=== PATIENT | male | born 1950 | race Two or more races ===

== ENCOUNTER 2020-06-18 08:34 | Outpatient (REF) | payer MEDICARE, SELFPAY ==
[2020-06-18 09:26] LABS: Estimated Average Glucose 171 mg/dL; Hemoglobin A1c % 7.6 %
[2020-06-18 09:39] LABS: Cholesterol 187 mg/dL; HDL Cholesterol 45 mg/dL; LDL Cholesterol Calculated 127 mg/dl; Triglycerides 79 mg/dL
[2020-06-18 10:56] LABS: Creatinine Urine 221.89 mg/dL; Microalbum/Creatinine Ratio Ur 14.8 ug/mg cr
== END 2020-06-18 08:35 | disposition home or self-care (01) ==
LOC: HO.LAB 08:34
PROVIDERS: PCP Internal Medicine; Visit Provider Internal Medicine
DX: E11.9 Type 2 diabetes mellitus without complications (principal)
CPT/HCPCS: 80061; 82043; 83036

== ENCOUNTER → 2020-07-14 11:47 | Outpatient (BNVA) | payer MEDICARE, SELFPAY | PROVIDERS: PCP Internal Medicine; Referring Provider Internal Medicine; Visit Provider Urology | DX: Z76.89 Persons encountering health services in other specified circumstances (principal) | CPT/HCPCS: Q3014 ==

== ENCOUNTER 2020-11-22 11:03 | Emergency (ER) | payer MEDICARE, SELFPAY ==
--- NOTE | ~2020-11-22 | XR_ITS ---
EXAMINATION: XR CHEST CLINICAL INFORMATION: Flulike symptoms COMPARISON: 07/23/2018 TECHNIQUE: Frontal view of the chest was obtained. FINDINGS: Normal symmetric lung volumes. No parenchymal consolidation. No pleural effusion. No pneumothorax. Cardiomediastinal silhouette and pulmonary vascularity are within normal limits. No acute osseous abnormalities. XR/XR chest 1V IMPRESSION: No acute findings.
[2020-11-22 11:11] VITALS: BP 160/87; PULSE 96; RESP 18; TEMP 37.7; O2SAT 96; BMI 30.7
--- NOTE | 2020-11-22 11:29 | ED.GENADULT ---
HPI - General Adult General Chief complaint: Upper Respiratory Symptoms Stated complaint: covid symptoms Time Seen by Provider: 11/22/20 11:13 Source: patient Mode of arrival: ambulatory Limitations: no limitations History of Present Illness HPI narrative: Patient comes emergency room complaining of generalized weakness and body aches, subjective fever, cough which started yesterday. Patient denies vomiting or diarrhea. No one else at home is sick. No sick contacts. MD complaint: COVID-like symptoms Related Data Home Medications Medication Instructions Recorded Confirmed omeprazole 20 mg capsule,delayed 20 mg PO DAILY 06/24/20 07/29/20 release terbinafine HCl 1 % topical cream 1 applic TOPICAL BID 06/24/20 07/29/20 Previous Rx's Medication Instructions Recorded linaclotide 72 mcg capsule 72 mcg PO DAILY #30 cap 06/24/20 metformin 500 mg tablet 500 mg PO BID #180 tab 07/13/20 finasteride 5 mg tablet 5 mg PO DAILY #90 tab 07/14/20 itraconazole 100 mg capsule 200 mg PO DAILY #60 cap 09/13/20 blood sugar diagnostic #100 ea 10/19/20 Allergies Allergy/AdvReac Type Severity Reaction Status Date / Time metronidazole [Flagyl] Allergy Unknown Insomnia Verified 07/28/20 14:07 TOURNIQUET FROM IV KIT Allergy Intermediate HIVES Uncoded 05/28/20 16:59 Review of Systems Review of Systems: Constitutional : No Weight loss, complaining of subjective fever, chills, fatigue, generalized malaise ENT/Mouth : No Hearing loss, No Ear Pain, No Nasal Congestion, No Sinus Pain, No Hoarseness, No sore throat, No Rhinorrhea, No Swallowing Difficulty Eyes: No Eye Pain, No Swelling, No Redness, No Foreign Body, No Discharge, No Vision Changes Cardiovascular : No Chest Pain, No SOB, No Dyspnea on Exertion, No Orthopnea, No Edema, No Palpitations Respiratory : complaining of dry cough, No Sputum, No Wheezing, No Smoke Exposure, No Dyspnea Gastrointestinal : No Nausea, No Vomiting, No Diarrhea, No Constipation, No abdominal Pain, complaining of chronic abdominal distension No Hematochezia, No Melena Genitourinary : complaining of occasional intermittent dysuria, occasional trouble urinating, known to have BPH, No Urinary Frequency, No Hematuria, Musculoskeletal : No joint pain, complaining of generalized Myalgias, No Joint Swelling Skin : No Skin Lesions, No rash Neuro : No Weakness, No Numbness, No Paresthesias, No Loss of Consciousness, No Dizziness, No Headache Psych : No Anxiety/Panic, No Depression, No SI/HI/AH/VH, No Social Issues, Heme/Lymph: No Bruising, No Bleeding,No Lymphadenopathy Endocrine : No Polyuria, No Polydipsia, No Temperature Intolerance [facility] Past Medical History Medical History Chronic GERD Diabetes type 2, controlled Surgical History History of kidney stones Family History Family History Father Medical history unknown Mother Medical history unknown Social History Social History Alcohol intake: never Smoking Status: Never smoker Advance Directives: No Advance Directives Information Provided: No Physical Exam Vital Signs: Vital Signs: Last Vital Signs Temp 99.8 F 11/22/20 11:11 Pulse 96 11/22/20 11:11 Resp 18 11/22/20 11:11 BP 160/87 H 11/22/20 11:11 Pulse Ox 96 11/22/20 11:11 Body Mass Index 30.7 Appearance: Alert. Oriented X3. No acute distress. Eyes: Pupils equal, round and reactive to light. ENT: Pharynx normal. Neck: Normal inspection. Neck supple. No lymph nodes noted. No crepitus CVS: Normal heart rate and rhythm. Pulses normal. Normal S1 and S2 Respiratory: No respiratory distress. Breath sounds normal. No Wheezing. No rales Abdomen: Soft and nontender. No rigidity. No distention. good BS x4 Skin: Skin warm and dry. Normal skin color. Normal skin turgor. Extremities: No lower extremity edema. No lower extremity edema. No Lacerations. No Rash Neuro: Oriented X 3. No motor deficit. No sensory deficit. Moving all extermities. No slurred speech. Course Course Course Narrative: I discussed the labs with the patient, he tested positive for COVID-19, patient aware that he needs to quarantine for 14 days. Patient's chest x-ray shows no acute findings, patient's oxygen saturation is 96-98% on room air, not tachycardic, P is not suspected at this time. Patient has no chest pain either. Medical Decision Making Lab Data Result diagrams: 11/22/20 12:31 11/22/20 12:31 Labs: Lab Results 11/22/20 11/22/20 11/22/20 Range/Units 12:31 12:31 12:31 WBC 9.0 (4.8-10.8) X10*3/uL RBC 4.63 (4.60-5.80) X10*6/uL Hgb 13.1 L (14.0-18.0) g/dl Hct 40.6 L (42-52) % MCV 87.7 (80-98) fL MCH 28.3 (27.0-33.0) pg MCHC 32.3 (31.0-36.0) g/dl RDW 13.5 (11.0-16.0) % Plt Count 196 (160-400) X10*3/uL MPV 10.0 (9.4-12.4) fL Immature Gran % (Auto) 0.3 (0.0-0.4) % Neut % (Auto) 64.9 (45-73) % Lymph % (Auto) 22.9 (20-40) % [place] % (Auto) 11.0 (2-11) % Eos % (Auto) 0.6 (0-4) % Baso % (Auto) 0.3 (0-2) % Lymph # (Auto) 2.1 (1.2-4.9) X10*3/uL [place] # (Auto) 1.0 (0.1-1.2) X10*3/uL Eos # (Auto) 0.1 (0.0-0.4) X10*3/uL Baso # (Auto) 0.0 (0.0-0.2) X10*3/uL Abs Immat Gran (auto) 0.03 (0.00-0.03) X10*3/uL Absolute Neuts (auto) 5.8 (2.0-8.3) X10*3/uL Absolute Nucleated RBC 0.000 (0.0-0.012) X10*3/uL Nucleated RBC % (auto) 0.0 (0.0-0.2) /100WBC PT (10.8-13.0) SEC INR (0.9-1.1) Sodium 135 (135-145) mmol/L Potassium 4.4 (3.3-5.1) mmol/L Chloride 105 (96-108) mmol/L Carbon Dioxide 21 L (22-29) mmol/L Anion Gap 13 (12-20) BUN 14 (9-16) mg/dL Creatinine 0.76 (0.5-1.4) mg/dL Estim Creat Clear Calc 90.1 Estimated GFR > 60 Random Glucose 158 H (60-115) mg/dL Calcium 8.6 (8.4-10.2) mg/dL Total Bilirubin 0.4 (0.0-1.0) mg/dL Direct Bilirubin 0.2 (0.0-0.5) mg/dL AST 20 (5-37) U/L ALT 15 (0-40) U/L Alkaline Phosphatase 70 (39-117) U/L B-Natriuretic Peptide (<100) pg/mL Total Protein 7.0 (6.5-8.0) g/dL Albumin 3.8 (3.5-5.0) g/dL Urine Color Urine Appearance Urine pH (5.0-8.0) Ur Specific [place] (1.005-1.025) Urine Protein (NEG-TRACE) MG/DL Urine Glucose (UA) (NEG) MG/DL Urine Ketones (NEG) MG/DL Urine Blood (NEG) Urine Nitrite (NEG) Ur Leukocyte Esterase (NEG) Coronavirus (PCR) POSITIVE A (Negative) Influenza Type A (PCR) NEGATIVE (Negative) Influenza Type B (PCR) NEGATIVE (Negative) RSV RNA Qual (PCR) NEGATIVE (Negative) 11/22/20 11/22/20 11/22/20 Range/Units 12:31 12:31 13:29 WBC (4.8-10.8) X10*3/uL RBC (4.60-5.80) X10*6/uL Hgb (14.0-18.0) g/dl Hct (42-52) % MCV (80-98) fL MCH (27.0-33.0) pg MCHC (31.0-36.0) g/dl RDW (11.0-16.0) % Plt Count (160-400) X10*3/uL MPV (9.4-12.4) fL Immature Gran % (Auto) (0.0-0.4) % Neut % (Auto) (45-73) % Lymph % (Auto) (20-40) % [place] % (Auto) (2-11) % Eos % (Auto) (0-4) % Baso % (Auto) (0-2) % Lymph # (Auto) (1.2-4.9) X10*3/uL [place] # (Auto) (0.1-1.2) X10*3/uL Eos # (Auto) (0.0-0.4) X10*3/uL Baso # (Auto) (0.0-0.2) X10*3/uL Abs Immat Gran (auto) (0.00-0.03) X10*3/uL Absolute Neuts (auto) (2.0-8.3) X10*3/uL Absolute Nucleated RBC (0.0-0.012) X10*3/uL Nucleated RBC % (auto) (0.0-0.2) /100WBC PT 13.2 H (10.8-13.0) SEC INR 1.1 (0.9-1.1) Sodium (135-145) mmol/L Potassium (3.3-5.1) mmol/L Chloride (96-108) mmol/L Carbon Dioxide (22-29) mmol/L Anion Gap (12-20) BUN (9-16) mg/dL Creatinine (0.5-1.4) mg/dL Estim Creat Clear Calc Estimated GFR Random Glucose (60-115) mg/dL Calcium (8.4-10.2) mg/dL Total Bilirubin (0.0-1.0) mg/dL Direct Bilirubin (0.0-0.5) mg/dL AST (5-37) U/L ALT (0-40) U/L Alkaline Phosphatase (39-117) U/L B-Natriuretic Peptide 41 (<100) pg/mL Total Protein (6.5-8.0) g/dL Albumin (3.5-5.0) g/dL Urine Color YELLOW Urine Appearance CLEAR Urine pH 5.0 (5.0-8.0) Ur Specific [place] >= 1.030 H (1.005-1.025) Urine Protein NEG (NEG-TRACE) MG/DL Urine Glucose (UA) NEG (NEG) MG/DL Urine Ketones NEG (NEG) MG/DL Urine Blood NEG (NEG) Urine Nitrite NEG (NEG) Ur Leukocyte Esterase NEG (NEG) Coronavirus (PCR) (Negative) Influenza Type A (PCR) (Negative) Influenza Type B (PCR) (Negative) RSV RNA Qual (PCR) (Negative) Imaging Data Chest x-ray: Radiologist's impression: Normal symmetric lung volumes. No parenchymal consolidation. No pleural effusion. No pneumothorax. Cardiomediastinal silhouette and pulmonary vascularity are within normal limits. No acute osseous abnormalities. XR/XR chest 1V IMPRESSION: No acute findings. Discharge Plan Discharge Clinical Impression: COVID-19 Patient Disposition: Home, Self-Care Instructions: COVID-19 (Coronavirus Disease 2019) (ED) Additional Instructions: If you have any shortness of breath or worsening symptoms, please return to the emergency room. Please stay at home and quarantine for the next 14 days, please make sure to follow Federal and CDC guidelines. Please follow-up with your primary care physician tomorrow. If you have any worsening or new symptoms, please return to the emergency room or call 911 Prescriptions: No Action metformin 500 mg tablet 500 mg PO BID Qty: 180 RF: 8 itraconazole 100 mg capsule 200 mg PO DAILY Qty: 60 RF: 2 (DME) FreeStyle Lite Strips Strip See Rx Instructions .ROUTE .MEDSUPPLY Qty: 100 RF: 8 terbinafine HCl 1 % cream 1 applic topical BID RF: 0 omeprazole 20 mg capsule,delayed release(DR/EC) 20 mg PO DAILY RF: 0 Linzess 72 mcg capsule 72 mcg PO DAILY Qty: 30 RF: 8 finasteride 5 mg tablet 5 mg PO DAILY Qty: 90 RF: 1
[2020-11-22 12:35] LABS: MANUAL DIFF FLAG NO
[2020-11-22 12:37] LABS: Basophils Percent Auto 0.3 % (0-2); Eosinophils Absolute Auto 0.1 X10*3/uL (0.0-0.4); Eosinophils Percent Auto 0.6 % (0-4); Hematocrit 40.6 % (42-52); Hemoglobin 13.1 g/dl (14.0-18.0); Imm Gran Abs Auto 0.03 X10*3/uL (0.00-0.03); Imm Gran Pct Auto 0.3 % (0.0-0.4); Lymphocytes Absolute Auto 2.1 X10*3/uL (1.2-4.9); Lymphocytes Percent Auto 22.9 % (20-40); Mean Corpuscular HGB Conc 32.3 g/dl (31.0-36.0); Mean Corpuscular Hemoglobin 28.3 pg (27.0-33.0); Mean Corpuscular Volume 87.7 fL (80-98); Neutrophils Absolute Auto 5.8 X10*3/uL (2.0-8.3); Neutrophils Percent Auto 64.9 % (45-73); Platelet Count 196 X10*3/uL (160-400); Red Blood Count 4.63 X10*6/uL (4.60-5.80); Red Cell Distribution Width 13.5 % (11.0-16.0)
[2020-11-22 12:45] LABS: INTERNATIONAL NORM RATIO 1.1 (0.9-1.1); Prothrombin Time 13.2 SEC (10.8-13.0)
[2020-11-22 13:04] LABS: Alanine Aminotransferase 15 U/L (0-40); Albumin Level 3.8 g/dL (3.5-5.0); Alkaline Phosphatase 70 U/L (39-117); Anion Gap 13 (12-20); Aspartate Amino Transferase 20 U/L (5-37); Bilirubin Direct 0.2 mg/dL (0.0-0.5); Bilirubin Total 0.4 mg/dL (0.0-1.0); Blood Urea Nitrogen 14 mg/dL (9-16); Calcium 8.6 mg/dL (8.4-10.2); Carbon Dioxide 21 mmol/L (22-29); Chloride 105 mmol/L (96-108); Creatinine Clr Calc Pharmacy 90.1; Estimated Glomerular Filt Rate > 60; Glucose Random 158 mg/dL (60-115); Potassium 4.4 mmol/L (3.3-5.1); Sodium 135 mmol/L (135-145)
[2020-11-22 13:07] LABS: B Type Natriuretic Peptide 41 pg/mL (<100)
[2020-11-22 13:41] LABS: Glucose Urine UA NEG (NEG); Leukocyte Esterase Urine NEG (NEG); Nitrite Urine NEG (NEG); Specific Gravity - Urine >= 1.030 (1.005-1.025); Urine Blood NEG (NEG); Urine Ketones NEG (NEG); Urine Protein NEG (NEG-TRACE)
[2020-11-22 13:52] LABS: Appearance Urine CLEAR; Color Urine YELLOW
[2020-11-22 14:21] LABS: Influenza A PCR NEGATIVE (Negative); Influenza B PCR NEGATIVE (Negative); Resp Syncy Virus RNA Qual PCR NEGATIVE (Negative); SARS COV2 PCR INHOUSE POSITIVE (Negative)
== END 2020-11-22 15:06 | disposition home or self-care (01) ==
PROVIDERS: Emergency Provider Emergency Medicine; PCP Internal Medicine
DX: U07.1 COVID-19 (principal); E11.9 Type 2 diabetes mellitus without complications
CPT/HCPCS: 0241U; 36415; 71045; 80048; 80076; 81003; 83880; 85025; 85610; 99283

== ENCOUNTER 2020-11-28 18:10 | Emergency (ER) | payer MEDICARE, SELFPAY ==
--- NOTE | ~2020-11-28 | CT_ITS ---
EXAMINATION: CT ANGIOGRAM OF THE CHEST WITH AND WITHOUT CONTRAST (CT PULMONARY ANGIOGRAM FOR PE) CLINICAL INFORMATION: Reason for Exam COVID positive shortness of breath COMPARISON: None TECHNIQUE: Prior to contrast administration, noncontrast localization images were obtained. Subsequently, multidetector volumetric imaging was performed from the thoracic inlet to below the diaphragms following the administration of 80 mL Omnipaque 350 intravenous contrast. No contrast reaction reported Sagittal, coronal, and MIP oblique sagittal reformatted images were obtained on the CT workstation, uploaded to PACS, and reviewed. This CT examination was performed using dose optimization techniques as appropriate, variously including the following: *Automated exposure control *Adjustment of mA and/or kV according to patient size (this includes techniques or standardized protocols for targeted exams where dose is matched to indication/reason for exam; i.e. extremities or head) *Use of iterative reconstruction technique Total exam dose-length product 362 mGy-cm FINDINGS: QUALITY OF STUDY/CONTRAST BOLUS: Satisfactory. PULMONARY ARTERIES: No central or segmental pulmonary emboli. THORACIC AORTA: No aneurysm or dissection. LUNG: Bilateral patchy and groundglass opacities present with slight peripheral predominance. PLEURA: Trace right pleural effusion. No pneumothorax. MEDIASTINUM: Normal heart size. No pericardial effusion. No hilar or mediastinal lymphadenopathy. No evidence of septal bowing or right heart strain. No reflux of contrast into the hepatic veins to suggest elevated right heart pressures. CHEST WALL/AXILLA: No axillary or internal mammary lymphadenopathy. OSSEOUS STRUCTURES: No acute or suspicious osseous abnormality. UPPER ABDOMEN: Cholelithiasis. CT/CT angio chest PE protocol IMPRESSION: * No pulmonary embolism. * No aortic aneurysm or dissection. * Bilateral airspace disease in a pattern and distribution compatible with COVID pneumonitis * Cholelithiasis. VTE: negative
--- NOTE | 2020-11-28 18:26 | ED_ITS ---
HPI - SOB/Dyspnea General Chief Complaint: General Medical Stated Complaint: Weakness COVID Positive Time Seen by Provider: 11/28/20 18:25 Source: patient Mode of arrival: ambulatory Limitations: no limitations History of Present Illness HPI Narrative: Patient diabetic for COVID positive on 11/22 comes here for incr eased weakness and cough and shortness of breath feels constipated poor appetite weakness multiple complaints feels that he is getting worse for last few days has low-grade fever also Related Data Home Medications Medication Instructions Recorded Confirmed omeprazole 20 mg capsule,delayed 20 mg PO DAILY 06/24/20 07/29/20 release terbinafine HCl 1 % topical cream 1 applic TOPICAL BID 06/24/20 07/29/20 Previous Rx's Medication Instructions Recorded linaclotide 72 mcg capsule 72 mcg PO DAILY #30 cap 06/24/20 metformin 500 mg tablet 500 mg PO BID #180 tab 07/13/20 finasteride 5 mg tablet 5 mg PO DAILY #90 tab 07/14/20 itraconazole 100 mg capsule 200 mg PO DAILY #60 cap 09/13/20 blood sugar diagnostic #100 ea 10/19/20 azithromycin [Zithromax] 250 mg PO DAILY 4 Days #4 tab 11/28/20 codeine-guaifenesin 5 ml PO Q6H PRN #237 ml 11/28/20 dexamethasone [Decadron] 6 mg PO DAILY #7 tab 11/28/20 doxycycline hyclate 100 mg PO BID #20 cap 11/28/20 Allergies Allergy/AdvReac Type Severity Reaction Status Date / Time metronidazole [Flagyl] Allergy Unknown Insomnia Verified 07/28/20 14:07 TOURNIQUET FROM IV KIT Allergy Intermediate HIVES Uncoded 05/28/20 16:59 Review of Systems Review of Systems: Constitutional : No Weight loss, No Fever, No Chills ENT/Mouth : No sore throat, No Rhinorrhea Eyes: No Eye Pain, No Swelling Cardiovascular : No Chest Pain, no palpitations Respiratory : + Cough, No Sputum, ++ shortness of breath Gastrointestinal : no Nausea, No Vomiting, No Diarrhea, No abdominal Pain, no black stools, constipation++ Genitourinary : No Dysuria, No Urinary Frequency Musculoskeletal : No joint pain, No Myalgias, No Joint Swelling Skin : No Skin Lesions, No rash Neuro : ++ Weakness, No Numbness, No Dizziness, No Headache Psych : No Anxiety/Panic, No Depression Heme/Lymph: No Bruising, No Lymphadenopathy Endocrine : No Polyuria, No Polydipsia All other systems reviewed and are negative [facility] Past Medical History Medical History Chronic GERD Diabetes type 2, controlled Surgical History History of kidney stones Family History Family History Father Medical history unknown Mother Medical history unknown Social History Social History Alcohol intake: never Smoking Status: Never smoker Use of substances other than those prescribed or required for medical reasons: No Advance Directives: No Advance Directives Information Provided: No Physical Exam Vital Signs: Vital Signs: Last Vital Signs Temp 100.3 F 11/28/20 21:35 Pulse 89 11/28/20 21:35 Resp 23 H 11/28/20 21:35 BP 132/79 11/28/20 21:35 Pulse Ox 94 11/28/20 21:35 Body Mass Index 30.7 Appearance: Alert. Oriented X3. No acute distress. Eyes: Pupils equal, round and reactive to light. ENT: Pharynx normal. Neck: Normal inspection. Neck supple. CVS: Normal heart rate and rhythm. Pulses normal. Respiratory: No respiratory distress. Breath sounds normal. Abdomen: Soft and nontender. Bowel sounds are present, no mass palpable, no CVA tenderness Skin: Skin warm and dry. Normal skin color. Normal skin turgor. Extremities: No lower extremity edema. Neuro: Oriented X 3. No motor deficit. No sensory deficit. MDM - SOB/Dyspnea MDM Narrative Medical decision making narrative: Patient with COVID-19 infection comes here with multiple complaints saturating 95% at room air will do basic workup to CTA chest to rule out PE Patient's CTA negative for PE showed diffuse infiltrates patient is saturating 96% at room air with stable labs will discharge patient home on Decadron Zithromax and doxycycline advised to report to the ER if increased shortness of breath Differential Diagnosis Differential diagnosis: Likely pneumonia Lab Data Attestation: I reviewed the patient's lab results. Result diagrams: 11/28/20 18:51 11/28/20 18:51 Labs: Lab Results 11/28/20 11/28/20 11/28/20 Range/Units 18:51 18:51 18:51 WBC 7.2 (4.8-10.8) X10*3/uL RBC 5.03 (4.60-5.80) X10*6/uL Hgb 14.2 (14.0-18.0) g/dl Hct 43.0 (42-52) % MCV 85.5 (80-98) fL MCH 28.2 (27.0-33.0) pg MCHC 33.0 (31.0-36.0) g/dl RDW 13.3 (11.0-16.0) % Plt Count 162 (160-400) X10*3/uL MPV 10.3 (9.4-12.4) fL Immature Gran % (Auto) 0.3 (0.0-0.4) % Neut % (Auto) 70.2 (45-73) % Lymph % (Auto) 24.0 (20-40) % [place] % (Auto) 5.4 (2-11) % Eos % (Auto) 0.0 (0-4) % Baso % (Auto) 0.1 (0-2) % Lymph # (Auto) 1.7 (1.2-4.9) X10*3/uL [place] # (Auto) 0.4 (0.1-1.2) X10*3/uL Eos # (Auto) 0.0 (0.0-0.4) X10*3/uL Baso # (Auto) 0.0 (0.0-0.2) X10*3/uL Abs Immat Gran (auto) 0.02 (0.00-0.03) X10*3/uL Absolute Neuts (auto) 5.1 (2.0-8.3) X10*3/uL Absolute Nucleated RBC 0.000 (0.0-0.012) X10*3/uL Nucleated RBC % (auto) 0.0 (0.0-0.2) /100WBC PT 15.4 H (10.8-13.0) SEC INR 1.3 H (0.9-1.1) APTT 33.3 (24.1-38.0) SEC D-Dimer 203 NG/ML Sodium 134 L (135-145) mmol/L Potassium 4.0 (3.3-5.1) mmol/L Chloride 100 (96-108) mmol/L Carbon Dioxide 21 L (22-29) mmol/L Anion Gap 17 (12-20) BUN 21 H (9-16) mg/dL Creatinine 0.85 (0.5-1.4) mg/dL Estim Creat Clear Calc 83.2 Estimated GFR > 60 Random Glucose 178 H (60-115) mg/dL Lactic Acid (0.5-2.0) mmol/L Calcium 8.7 (8.4-10.2) mg/dL Ferritin 492 H (20-250) ng/mL Total Bilirubin 0.8 (0.0-1.0) mg/dL Direct Bilirubin 0.3 (0.0-0.5) mg/dL AST 29 D (5-37) U/L ALT 17 (0-40) U/L Alkaline Phosphatase 57 (39-117) U/L Lactate Dehydrogenase 220 (118-273) U/L Troponin I High Sens (<3.5-35.0) ng/L Total Protein 7.7 (6.5-8.0) g/dL Albumin 4.1 (3.5-5.0) g/dL 11/28/20 11/28/20 Range/Units 18:51 18:51 WBC (4.8-10.8) X10*3/uL RBC (4.60-5.80) X10*6/uL Hgb (14.0-18.0) g/dl Hct (42-52) % MCV (80-98) fL MCH (27.0-33.0) pg MCHC (31.0-36.0) g/dl RDW (11.0-16.0) % Plt Count (160-400) X10*3/uL MPV (9.4-12.4) fL Immature Gran % (Auto) (0.0-0.4) % Neut % (Auto) (45-73) % Lymph % (Auto) (20-40) % [place] % (Auto) (2-11) % Eos % (Auto) (0-4) % Baso % (Auto) (0-2) % Lymph # (Auto) (1.2-4.9) X10*3/uL [place] # (Auto) (0.1-1.2) X10*3/uL Eos # (Auto) (0.0-0.4) X10*3/uL Baso # (Auto) (0.0-0.2) X10*3/uL Abs Immat Gran (auto) (0.00-0.03) X10*3/uL Absolute Neuts (auto) (2.0-8.3) X10*3/uL Absolute Nucleated RBC (0.0-0.012) X10*3/uL Nucleated RBC % (auto) (0.0-0.2) /100WBC PT (10.8-13.0) SEC INR (0.9-1.1) APTT (24.1-38.0) SEC D-Dimer NG/ML Sodium (135-145) mmol/L Potassium (3.3-5.1) mmol/L Chloride (96-108) mmol/L Carbon Dioxide (22-29) mmol/L Anion Gap (12-20) BUN (9-16) mg/dL Creatinine (0.5-1.4) mg/dL Estim Creat Clear Calc Estimated GFR Random Glucose (60-115) mg/dL Lactic Acid 1.4 (0.5-2.0) mmol/L Calcium (8.4-10.2) mg/dL Ferritin (20-250) ng/mL Total Bilirubin (0.0-1.0) mg/dL Direct Bilirubin (0.0-0.5) mg/dL AST (5-37) U/L ALT (0-40) U/L Alkaline Phosphatase (39-117) U/L Lactate Dehydrogenase (118-273) U/L Troponin I High Sens 11.4 (<3.5-35.0) ng/L Total Protein (6.5-8.0) g/dL Albumin (3.5-5.0) g/dL ECG Data Attestation: I personally reviewed and interpreted this ECG as follows: Interpretation: Normal sinus rhythm heart rate 89 beats per minute normal intervals normal axis no acute ST T wave changes impression normal EKG Discharge Plan Discharge Clinical Impression: COVID-19 Patient Disposition: Home, Self-Care Instructions: COVID-19 (Coronavirus Disease 2019) (ED) Additional Instructions: Drink plenty of fluid take medication as prescribed report to the ER if increased shortness of breath Prescriptions: New dexamethasone [Decadron] 6 mg tablet 6 mg PO DAILY Qty: 7 RF: 0 codeine-guaifenesin 10-100 mg/5 mL liquid 5 ml PO Q6H PRN (Reason: cough) Qty: 237 RF: 0 azithromycin [Zithromax] 250 mg tablet 250 mg PO DAILY 4 Days Qty: 4 RF: 0 doxycycline hyclate 100 mg capsule 100 mg PO BID Qty: 20 RF: 0 No Action metformin 500 mg tablet 500 mg PO BID Qty: 180 RF: 8 itraconazole 100 mg capsule 200 mg PO DAILY Qty: 60 RF: 2 (DME) FreeStyle Lite Strips Strip See Rx Instructions .ROUTE .MEDSUPPLY Qty: 100 RF: 8 terbinafine HCl 1 % cream 1 applic topical BID RF: 0 omeprazole 20 mg capsule,delayed release(DR/EC) 20 mg PO DAILY RF: 0 Linzess 72 mcg capsule 72 mcg PO DAILY Qty: 30 RF: 8 finasteride 5 mg tablet 5 mg PO DAILY Qty: 90 RF: 1 Interventions: ED Discharge Assessment Last Done: 11/28/20 21:48 Discharge Date/Time: 11/28/20 22:05
--- NOTE | 2020-11-28 18:27 | ECG_ITS ---
Test Reason : SOB Blood Pressure : / mmHG Vent. Rate : 089 BPM Atrial Rate : 089 BPM P-R Int : 174 ms QRS Dur : 088 ms QT Int : 346 ms P-R-T Axes : 052 -14 042 degrees QTc Int : 420 ms Normal sinus rhythm Normal ECG When compared with ECG of 25-NOV-2017 09:50, No significant change was found Referred By: Srinivas Dan Electronically Signed By:NORAH RAMIREZ MD
[2020-11-28 18:30] VITALS: BP 128/83; PULSE 98; RESP 18; TEMP 37.2; O2SAT 96; BMI 30.7
[2020-11-28 18:36] VITALS: BP 128/83; PULSE 98; RESP 17; TEMP 37.2; O2SAT 96
[2020-11-28] MEDS: 0.9 % Sodium Chloride 1,000 ML 999 ML IVCONT (18:54)
[2020-11-28] MEDS: Milk of Magnesia 30 ML ORAL.SUSP PO (18:58)
[2020-11-28 18:59] LABS: MANUAL DIFF FLAG NO
[2020-11-28 19:05] LABS: Basophils Percent Auto 0.1 % (0-2); Hemoglobin 14.2 g/dl (14.0-18.0); Imm Gran Abs Auto 0.02 X10*3/uL (0.00-0.03); Imm Gran Pct Auto 0.3 % (0.0-0.4); Lymphocytes Absolute Auto 1.7 X10*3/uL (1.2-4.9); Mean Corpuscular Hemoglobin 28.2 pg (27.0-33.0); Mean Corpuscular Volume 85.5 fL (80-98); Mean Platelet Volume 10.3 fL (9.4-12.4); Monocytes Absolute Auto 0.4 X10*3/uL (0.1-1.2); Monocytes Percent Auto 5.4 % (2-11); Neutrophils Absolute Auto 5.1 X10*3/uL (2.0-8.3); Neutrophils Percent Auto 70.2 % (45-73); Platelet Count 162 X10*3/uL (160-400); Red Blood Count 5.03 X10*6/uL (4.60-5.80); Red Cell Distribution Width 13.3 % (11.0-16.0); White Blood Count 7.2 X10*3/uL (4.8-10.8)
[2020-11-28 19:19] LABS: Lactic Acid 1.4 mmol/L (0.5-2.0)
[2020-11-28 19:23] LABS: Alanine Aminotransferase 17 U/L (0-40); Albumin Level 4.1 g/dL (3.5-5.0); Alkaline Phosphatase 57 U/L (39-117); Anion Gap 17 (12-20); Aspartate Amino Transferase 29 U/L (5-37); Bilirubin Direct 0.3 mg/dL (0.0-0.5); Bilirubin Total 0.8 mg/dL (0.0-1.0); Blood Urea Nitrogen 21 mg/dL (9-16); Calcium 8.7 mg/dL (8.4-10.2); Carbon Dioxide 21 mmol/L (22-29); Chloride 100 mmol/L (96-108); Creatinine Clr Calc Pharmacy 83.2; Estimated Glomerular Filt Rate > 60; Glucose Random 178 mg/dL (60-115); Lactate Dehydrogenase 220 U/L (118-273); Sodium 134 mmol/L (135-145); Total Protein 7.7 g/dL (6.5-8.0)
[2020-11-28 19:29] LABS: Troponin-I High Sensitivity 11.4 ng/L (<3.5-35.0)
[2020-11-28 19:44] LABS: Ferritin 492 ng/mL (20-250)
[2020-11-28 19:48] LABS: INTERNATIONAL NORM RATIO 1.3 (0.9-1.1); Prothrombin Time 15.4 SEC (10.8-13.0)
[2020-11-28 19:50] LABS: D Dimer 203 NG/ML; Partial Thromboplastin Time 33.3 SEC (24.1-38.0)
[2020-11-28] MEDS: Azithromycin 500 MG TABLET PO (21:31)
[2020-11-28 21:35] VITALS: BP 132/79; PULSE 89; RESP 23; TEMP 37.9; O2SAT 94
--- NOTE | 2020-11-28 21:39 | PC.NURSE ---
Pt up, ambulating around room, no distress, skin wpd, rr even and unlabored.
[2020-11-28] MEDS: Acetaminophen 325 MG TABLET 650 MG PO (21:46)
== END 2020-11-28 22:05 | disposition home or self-care (01) ==
PROVIDERS: Emergency Provider Internal Medicine
DX: U07.1 COVID-19 (principal); R53.1 Weakness; E11.9 Type 2 diabetes mellitus without complications; F17.210 Nicotine dependence, cigarettes, uncomplicated
CPT/HCPCS: 36415; 71275; 80048; 80076; 82728; 83605; 83615; 84484; 85025; 85379; 85610; 85730; 87040; 93005; 96361; 96374; 99284; J1100; Q9967

== ENCOUNTER 2020-12-01 14:44 | Inpatient (IN) | payer MEDICARE, SELFPAY ==
[2020-12-01] VITALS (8 sets, daily range): BP systolic 107–147; BP diastolic 56–78; PULSE 72–93; RESP 18–33; TEMP 37.9–40.2; O2SAT 91–96; BMI 31.4
--- NOTE | 2020-12-01 | ECG_ITS ---
Test Reason : SHORTNESS OF BREATH Blood Pressure : / mmHG Vent. Rate : 077 BPM Atrial Rate : 077 BPM P-R Int : 178 ms QRS Dur : 086 ms QT Int : 344 ms P-R-T Axes : 041 -11 038 degrees QTc Int : 389 ms Normal sinus rhythm Possible Left atrial enlargement Borderline ECG When compared with ECG of 28-NOV-2020 18:40, No significant change was found Referred By: Generic ED Physician Electronically Signed By:MIRNA PAYTON
--- NOTE | ~2020-12-01 | CT_ITS ---
EXAMINATION: CT ABDOMEN AND PELVIS WITHOUT CONTRAST CLINICAL INFORMATION: Abdominal pain COMPARISON: CT abdomen pelvis 01/12/2019, 01/15/2019.. TECHNIQUE: Multidetector volumetric imaging was performed from the superior aspect of the liver through the pubic symphysis. Sagittal and coronal reformatted images were obtained on the technologist's workstation. This CT examination was performed using dose optimization techniques as appropriate, variously including the following: *Automated exposure control *Adjustment of mA and/or kV according to patient size (this includes techniques or standardized protocols for targeted exams where dose is matched to indication/reason for exam; i.e. extremities or head) *Use of iterative reconstruction technique DLP: 660 mGy-cm FINDINGS: LUNG BASES: There is patchy and streaky bilateral bibasilar airspace opacities. LIVER, GALLBLADDER, AND BILIARY TREE: The liver is normal in size, shape, and attenuation. No focal hepatic lesion or biliary ductal dilatation is present. There are Calcified gallstones within the gallbladder. Largest at the neck of the gallbladder measuring 2 cm. No edema around the gallbladder or bile duct dilatation. PANCREAS: Unremarkable. SPLEEN: Unremarkable. ADRENAL GLANDS: Unremarkable. KIDNEYS AND URETERS: There is hypodensity in the parapelvic area bilaterally most significant at the lower pole left kidney. This is unchanged since multiple prior studies is likely due to parapelvic cysts. There is no renal or ureteral stone. There is no hydroureter. BLADDER: [place] catheter within bladder. Bladder is nearly empty. Small volume of air in the bladder. GASTROINTESTINAL TRACT: There are scattered diverticula throughout the colon. There is no diverticulitis. There is no bowel wall thickening /edema. There is no bowel obstruction. There is a moderate volume of stool in the colon. The appendix is normal . The small bowel loops are unremarkable. The stomach is normal. There is small hiatal hernia. ABDOMINAL WALL: Small fat-containing umbilical hernia. Small fat-containing bilateral inguinal hernia LYMPH NODES: Normal. VASCULAR: Vascular calcifications of aorta and iliac arteries. PELVIC VISCERA: Prostate measures 4.4 cm transverse. OSSEOUS STRUCTURES: Unremarkable. CT/CT abdomen pelvis wo con IMPRESSION: 1. Patchy and streaky bibasilar airspace opacities. Atelectasis and/or pneumonia. 2. Cholelithiasis. No acute change of the gallbladder. 3. Diverticulosis of the colon. There is no acute abnormality of the bowel. 4. Hypodensity in the parapelvic area of both kidneys likely due to parapelvic cysts.
--- NOTE | ~2020-12-01 | XR_ITS ---
EXAMINATION: XR CHEST CLINICAL INFORMATION: Pneumothorax COMPARISON: Previous chest x-rays most recent 12/03/[address] from earlier the same day TECHNIQUE: Frontal view of the chest was obtained. FINDINGS: There is an endotracheal tube with tip 3.5 cm above the estelle. There is a nasogastric tube projects over the stomach. The tip is not seen. There is a right jugular line with tip projecting over the cavoatrial junction. The heart does not appear enlarged. Pneumomediastinum seen by chest CT is difficult to appreciate by chest x-ray. Hilar and mediastinal contours are unremarkable. There is bilateral airspace disease not appreciably changed. There is no pleural effusion. No pneumothorax is seen. XR/XR chest 1V IMPRESSION: Satisfactory position of endotracheal tube and right jugular line. Nasogastric tube projects over stomach, tip not seen. No change in bilateral airspace disease. No pneumothorax or pneumomediastinum appreciated by chest x-ray.
--- NOTE | ~2020-12-01 | XR_ITS ---
EXAMINATION: PORTABLE CHEST 1 VIEW CLINICAL INFORMATION: COVID pneumonia . COMPARISON: 11/22/2020 chest x-ray and 11/28/2020 CT scan. TECHNIQUE: Portable frontal view of the chest was obtained. FINDINGS: Lungs are mildly hypoexpanded. There is now patchy bilateral airspace disease with a peripheral predominance. 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 Atypical or viral infectious etiology would be suspected. No overt edema or pneumothorax. Cardiac and mediastinal silhouettes within normal limits for size. XR/XR chest 1V IMPRESSION: Patchy bilateral airspace disease suggesting underlying atypical or viral infectious etiology.
--- NOTE | ~2020-12-01 | XR_ITS ---
EXAMINATION: CHEST 1 VIEW CLINICAL INFORMATION: Follow-up pneumonia. Intubated. COMPARISON: Multiple prior exams are reviewed. The most recent is from 12/06/2020. TECHNIQUE: An AP view of the chest is provided. FINDINGS: The cardiac silhouette is stable. The tip of the endotracheal tube is approximately 3.5 cm above the estelle. The right central venous line and enteric tube are in unchanged position. There are no pneumothoraces. There is diffuse mixed interstitial and airspace disease with increasing right lower lobe airspace disease and likely small right pleural effusion. The osseous structures are stable. XR/XR chest 1V IMPRESSION: Lines and tubes in place as stated above. Multifocal airspace disease with increasing opacification within the right lower lobe. Likely small right pleural effusion.
--- NOTE | ~2020-12-01 | XR_ITS ---
EXAMINATION: XR CHEST CLINICAL INFORMATION: Line placement COMPARISON: December 01, 2020 TECHNIQUE: AP portable view of the chest was obtained. FINDINGS: Since previous study endotracheal tube has been placed with tip approximately 3.7 cm above the estelle. A right internal jugular central venous catheter is seen in place with tip in the mid right atrium. No pneumothorax is evident. Enteric catheter is seen traversing to the stomach with tip in the region of the antrum. There remains bilateral regions of patchy disease without significant change. No significant pleural effusion identified. Heart normal size. No evidence of airspace edema. XR/XR chest 1V IMPRESSION: Support devices in place as described without pneumothorax. No significant change in bilateral patchy disease.
--- NOTE | ~2020-12-01 | CT_ITS ---
EXAMINATION: CT CHEST WITHOUT CONTRAST CLINICAL INFORMATION: Hypoxic respiratory failure COMPARISON: Previous chest x-rays most recent 12/03/2020 and CTA of the chest 11/28/2020 TECHNIQUE: Multidetector volumetric CT imaging of the chest was done. Axial MIP volume rendering provided. Sagittal and coronal reformatted images were obtained. This CT examination was performed using dose optimization techniques as appropriate, variously including the following: *Automated exposure control *Adjustment of mA and/or kV according to patient size (this includes techniques or standardized protocols for targeted exams where dose is matched to indication/reason for exam; i.e. extremities or head) *Use of iterative reconstruction technique DLP: 348 mGy-cm FINDINGS: LUNGS: The there is increasing diffuse groundglass attenuation throughout the lungs. There is denser atelectasis or consolidation at the lung bases with some air bronchograms, left greater than right. This appears increased from 11/28/2020 CT scan. Lungs are clear with no evidence of inflammation or nodules. MEDIASTINUM: There is new pneumomediastinum. The heart is upper normal in size. There is mild coronary artery and aortic valve calcification. There is no pericardial effusion. The thoracic aorta is normal in caliber. There is an endotracheal tube with tip 2.5 cm above the estelle. There is a right jugular line with tip projecting over the SVC. There is a nasogastric tube with tip in the stomach. PLEURA: There is question of a tiny left pneumothorax adjacent to the anterior medial left upper lobe and some subcutaneous emphysema for example axial image 25 series 3 and axial image 203 series 5. This measures 3 mm in thickness. There is also mild adjacent left anterior chest wall emphysema.. There is no pleural effusion. No pleural mass or thickening. AXILLA: No lymphadenopathy. UPPER ABDOMEN: Unremarkable. OSSEOUS STRUCTURES: There are degenerative changes of the spine. CT/CT chest wo con IMPRESSION: Worsening pneumonitis with diffuse groundglass attenuation seen throughout the lungs. Increasing and denser atelectasis/consolidation with air bronchograms at the lung bases, left greater than right. New pneumomediastinum. Question new tiny left pneumothorax adjacent to the anterior medial left upper lobe and new left chest wall subcutaneous emphysema. Satisfactory position of support lines and tubes. Findings were communicated to Dr. Huynh by telephone on 12/06/2020 at 9:20 AM.
--- NOTE | ~2020-12-01 | XR_ITS ---
EXAMINATION: XR CHEST CLINICAL INFORMATION: Hypoxia COMPARISON: Previous chest x-ray most recent 12/07/2020 TECHNIQUE: Frontal view of the chest was obtained. FINDINGS: There is an endotracheal tube 5 cm above the estelle. There is a right jugular line with tip projecting over the cavoatrial junction. Nasogastric tube projects over the stomach. The tip is not seen. The cardiac and mediastinal contours are stable. There is bilateral airspace disease. This does not appear appreciably changed. There is no pleural effusion or pneumothorax. There are degenerative changes of the spine. XR/XR chest 1V IMPRESSION: Satisfactory position of endotracheal tube and right jugular line. Nasogastric tube projects over stomach, tip not seen. No change in bilateral airspace disease.
[2020-12-01 15:16] LABS: Glucose, Whole Blood 226 mg/dL (60-115)
--- NOTE | 2020-12-01 15:40 | PC.NURSE ---
Pt brought in by EMS on NRB with sats 91% on NRB. The patient states that his primary language is Czech but he has a hard time understanding staff and the patient will not give answer to what his primary language is. He can understand simple commands and questions. His NRB flow was increased with sats increasing to 96% on 100%. RR in 20s. Pt groaning and states that he has abd pain. Abdomen is rounded but not firm. He was found to be incontinent of urine.His temp is >104 rectally. [place] catheter with temp probe place also reading 104.3. Pt was packed with ice packs. 2 IVs inserted and labs drawn/sent to the lab.
[2020-12-01 15:44] LABS: Basophils Percent Auto 0.1 % (0-2); Hematocrit 39.2 % (42-52); Hemoglobin 12.9 g/dl (14.0-18.0); Imm Gran Abs Auto 0.09 X10*3/uL (0.00-0.03); Imm Gran Pct Auto 0.7 % (0.0-0.4); Lymphocytes Percent Auto 7.3 % (20-40); MANUAL DIFF FLAG SCAN; Mean Corpuscular HGB Conc 32.9 g/dl (31.0-36.0); Mean Corpuscular Hemoglobin 27.9 pg (27.0-33.0); Mean Corpuscular Volume 84.8 fL (80-98); Mean Platelet Volume 10.1 fL (9.4-12.4); Monocytes Absolute Auto 0.2 X10*3/uL (0.1-1.2); Monocytes Percent Auto 1.7 % (2-11); Neutrophils Absolute Auto 12.1 X10*3/uL (2.0-8.3); Neutrophils Percent Auto 90.2 % (45-73); Platelet Count 183 X10*3/uL (160-400); Red Blood Count 4.62 X10*6/uL (4.60-5.80); Red Cell Distribution Width 13.4 % (11.0-16.0); SCAN SMEAR FLAG 1; White Blood Count 13.4 X10*3/uL (4.8-10.8)
[2020-12-01 15:45] LABS: Glucose Urine UA NEG (NEG); Leukocyte Esterase Urine NEG (NEG); Nitrite Urine NEG (NEG); PH 5.5 (5.0-8.0); Specific Gravity - Urine >= 1.030 (1.005-1.025); Urine Blood 3+ (NEG); Urine Ketones 15 MG/DL (NEG); Urine Protein 2+ MG/DL (NEG-TRACE)
[2020-12-01 15:47] LABS: Appearance Urine HAZY; Color Urine YELLOW
[2020-12-01 15:52] LABS: INTERNATIONAL NORM RATIO 1.4 (0.9-1.1); Prothrombin Time 16.6 SEC (10.8-13.0)
[2020-12-01 15:54] LABS: Bacteria Urine 1+ /LPF; RBC Urine 50-75 /HPF (0); Squamous Epithelial Cell Urine TRACE /LPF; WBC Urine 0-2 /HPF (0-4)
[2020-12-01 15:55] LABS: Partial Thromboplastin Time 30.5 SEC (24.1-38.0)
[2020-12-01 16:05] LABS: Alanine Aminotransferase 13 U/L (0-40); Albumin Level 3.4 g/dL (3.5-5.0); Alkaline Phosphatase 45 U/L (39-117); Anion Gap 17 (12-20); Aspartate Amino Transferase 30 U/L (5-37); Bilirubin Direct 0.4 mg/dL (0.0-0.5); Blood Urea Nitrogen 23 mg/dL (9-16); Calcium 7.9 mg/dL (8.4-10.2); Carbon Dioxide 20 mmol/L (22-29); Chloride 103 mmol/L (96-108); Creatinine Clr Calc Pharmacy 79.5; Estimated Glomerular Filt Rate > 60; Glucose Random 242 mg/dL (60-115); Potassium 4.1 mmol/L (3.3-5.1); Sodium 136 mmol/L (135-145); Total Protein 6.6 g/dL (6.5-8.0)
--- NOTE | 2020-12-01 16:30 | ED.SOB ---
HPI - SOB/Dyspnea General Chief Complaint: Dyspnea Stated Complaint: +COVID,DIFF BREATHING Time Seen by Provider: 12/01/20 16:23 Source: patient Mode of arrival: EMS Limitations: no limitations History of Present Illness HPI Narrative: Patient with COVID symptoms since 11/21 with cough and increased shortness of breath and fever was seen here on 11/22 and 12/06 on patient was started on Decadron doxycycline and Zithromax bilateral infiltrate but was saturating 96% at room air. For last 2 days patient is getting worse and now comes with more cough and shortness of breath when EMS reached patient was saturating 70% at room air is on non-rebreather saturating 94% frequent cough and temperature of 104.3 patient denies any chest pain leg swelling. Patient is CTA chest done on 11/28 was negative for PE MD elicited complaint: shortness of breath and cough Related Data Previous Rx's Medication Instructions Recorded metformin 500 mg tablet 500 mg PO BID #180 tab 07/13/20 itraconazole 100 mg capsule 200 mg PO DAILY #60 cap 09/13/20 blood sugar diagnostic #100 ea 10/19/20 azithromycin [Zithromax] 250 mg PO DAILY 4 Days #4 tab 11/28/20 codeine-guaifenesin 5 ml PO Q6H PRN #237 ml 11/28/20 doxycycline hyclate 100 mg PO BID #20 cap 11/28/20 Allergies Allergy/AdvReac Type Severity Reaction Status Date / Time metronidazole [Flagyl] Allergy Unknown Insomnia Verified 07/28/20 14:07 TOURNIQUET FROM IV KIT Allergy Intermediate HIVES Uncoded 05/28/20 16:59 Review of Systems Review of Systems: Constitutional : No Weight loss, ++ Fever, No Chills ENT/Mouth : No sore throat, No Rhinorrhea Eyes: No Eye Pain, No Swelling Cardiovascular : No Chest Pain, no palpitations Respiratory : ++Cough, No Sputum, ++ shortness of breath Gastrointestinal : no Nausea, No Vomiting, No Diarrhea, No abdominal Pain, no black stools Genitourinary : No Dysuria, No Urinary Frequency Musculoskeletal : No joint pain, No Myalgias, No Joint Swelling Skin : No Skin Lesions, No rash Neuro : No Weakness, No Numbness, No Dizziness, No Headache Psych : No Anxiety/Panic, No Depression Heme/Lymph: No Bruising, No Lymphadenopathy Endocrine : No Polyuria, No Polydipsia All other systems reviewed and are negative [facility] [place] Past Medical History Medical History BPH loc w urin obs/LUTS Chronic GERD COVID-19 Diabetes type 2, controlled Irritable bowel syndrome Nephrolithiasis Surgical History History of kidney stones Family History Family History Father Medical history unknown Mother Medical history unknown Social History Social History Household Members: None Housing: Apartment Do you presently have visiting nurse or other home services: No Alcohol intake: never Smoking Status: Former smoker Tobacco Type: Cigarette Use of substances other than those prescribed or required for medical reasons: No Have you been hit, kicked, punched, or otherwise hurt by someone within the past year? If so, by whom?: No Do you feel safe in your current relationship?: No Current Relationship Is there a partner from a previous relationship who is making you feel unsafe now?: No Advance Directives: No Advance Directives Information Provided: No Do you have thoughts of harming others: None and Vague Do you have a plan to hurt others: No Plan Recently lost weight without trying: No Physical Exam Vital Signs: Vital Signs: Last Vital Signs Temp 97.0 F 12/02/20 00:00 Pulse 70 12/02/20 00:00 Resp 32 H 12/02/20 00:03 BP 144/76 H 12/02/20 00:00 Pulse Ox 96 12/02/20 00:00 Body Mass Index 31.4 Const: General: well developed, in distress, anxious and ill appearing Nutritional Appearance: well nourished Orientation/consciousness: patient oriented x3 HENMT: Head: Yes normocephalic and Yes atraumatic Ears: hearing grossly normal bilaterally General nose exam: Normal external nose present Mouth: Normal oral and palatal mucosa present Eyes: General: appearance normal, both eyes and all related structures Neck: Neck: Yes normal visual inspection, Yes no lymphadenopathy and No tender Chest: Chest palpation & inspection: normal palpation of entire chest wall Resp: Effort & Inspection: Actively coughing, labored and tachypneic Auscultation: crackles diffuse, rales diffuse and wheezes scattered wheezes Cardio: Jugular venous distension: no JVD Palpation: normal PMI Rate: regular rate Rhythm: regular rhythm Heart sounds: S1 normal heart sound present and S2 normal heart sound present Peripheral pulses: Peripheral pulses 2+ throughout GI: Inspection: Yes normal to inspection Palpation (GI): Soft to palpation and nontender Auscultation: normal bowel sounds : General: Yes no CVA tenderness Back/Spine/Pelvis: Back: no CVA tenderness Thoracic/Lumbar Spine: thoracic and lumbar spine normal to inspection Skin: General skin exam: no rashes or lesions noted Neuro: General: patient oriented x3 and no focal motor deficits Extrem: General: Yes normal to inspection, Yes full ROM, No no calf tenderness and No pedal edema MDM - SOB/Dyspnea MDM Narrative Medical decision making narrative: Patient with COVID-19 pneumonia worsening of hypoxia and infiltrate already on Decadron will admit patient for oxygen therapy patient started on high-flow at this time on 90% saturation and 50 L with pulse ox of 94% patient alert oriented x3 feels better will admit for supportive treatment Differential Diagnosis Differential diagnosis: Likely pneumonia Medical Records Attestation: I reviewed the patient's medical records. Lab Data Attestation: I reviewed the patient's lab results. Result diagrams: 12/01/20 15:31 12/01/20 15:31 Labs: Lab Results 12/01/20 12/01/20 12/01/20 Range/Units 15:06 15:31 15:31 WBC 13.4 H (4.8-10.8) X10*3/uL RBC 4.62 (4.60-5.80) X10*6/uL Hgb 12.9 L (14.0-18.0) g/dl Hct 39.2 L (42-52) % MCV 84.8 (80-98) fL MCH 27.9 (27.0-33.0) pg MCHC 32.9 (31.0-36.0) g/dl RDW 13.4 (11.0-16.0) % Plt Count 183 (160-400) X10*3/uL MPV 10.1 (9.4-12.4) fL Immature Gran % (Auto) 0.7 H (0.0-0.4) % Neut % (Auto) 90.2 H (45-73) % Lymph % (Auto) 7.3 L (20-40) % [place] % (Auto) 1.7 L (2-11) % Eos % (Auto) 0.0 (0-4) % Baso % (Auto) 0.1 (0-2) % Lymph # (Auto) 1.0 L (1.2-4.9) X10*3/uL [place] # (Auto) 0.2 (0.1-1.2) X10*3/uL Eos # (Auto) 0.0 (0.0-0.4) X10*3/uL Baso # (Auto) 0.0 (0.0-0.2) X10*3/uL Abs Immat Gran (auto) 0.09 H (0.00-0.03) X10*3/uL Absolute Neuts (auto) 12.1 H (2.0-8.3) X10*3/uL Absolute Nucleated RBC 0.000 (0.0-0.012) X10*3/uL Nucleated RBC % (auto) 0.0 (0.0-0.2) /100WBC Smear Tech's Comments VERIFIED PT 16.6 H (10.8-13.0) SEC INR 1.4 H (0.9-1.1) APTT 30.5 (24.1-38.0) SEC D-Dimer 763 NG/ML Sodium (135-145) mmol/L Potassium (3.3-5.1) mmol/L Chloride (96-108) mmol/L Carbon Dioxide (22-29) mmol/L Anion Gap (12-20) BUN (9-16) mg/dL Creatinine (0.5-1.4) mg/dL Estim Creat Clear Calc Estimated GFR POC Glucose 226 H (60-115) mg/dL Random Glucose (60-115) mg/dL Lactic Acid (0.5-2.0) mmol/L Calcium (8.4-10.2) mg/dL Ferritin (20-250) ng/mL Total Bilirubin (0.0-1.0) mg/dL Direct Bilirubin (0.0-0.5) mg/dL AST (5-37) U/L ALT (0-40) U/L Alkaline Phosphatase (39-117) U/L Lactate Dehydrogenase (118-273) U/L C-Reactive Protein (< or = 0.50) mg/dL Total Protein (6.5-8.0) g/dL Albumin (3.5-5.0) g/dL Urine Color Urine Appearance Urine pH (5.0-8.0) Ur Specific [place] (1.005-1.025) Urine Protein (NEG-TRACE) MG/DL Urine Glucose (UA) (NEG) MG/DL Urine Ketones (NEG) MG/DL Urine Blood (NEG) Urine Nitrite (NEG) Ur Leukocyte Esterase (NEG) Urine RBC (0) /HPF Urine WBC (0-4) /HPF Ur Squamous Epith Cells /LPF Urine Bacteria /LPF 12/01/20 12/01/20 12/01/20 Range/Units 15:31 15:31 15:34 WBC (4.8-10.8) X10*3/uL RBC (4.60-5.80) X10*6/uL Hgb (14.0-18.0) g/dl Hct (42-52) % MCV (80-98) fL MCH (27.0-33.0) pg MCHC (31.0-36.0) g/dl RDW (11.0-16.0) % Plt Count (160-400) X10*3/uL MPV (9.4-12.4) fL Immature Gran % (Auto) (0.0-0.4) % Neut % (Auto) (45-73) % Lymph % (Auto) (20-40) % [place] % (Auto) (2-11) % Eos % (Auto) (0-4) % Baso % (Auto) (0-2) % Lymph # (Auto) (1.2-4.9) X10*3/uL [place] # (Auto) (0.1-1.2) X10*3/uL Eos # (Auto) (0.0-0.4) X10*3/uL Baso # (Auto) (0.0-0.2) X10*3/uL Abs Immat Gran (auto) (0.00-0.03) X10*3/uL Absolute Neuts (auto) (2.0-8.3) X10*3/uL Absolute Nucleated RBC (0.0-0.012) X10*3/uL Nucleated RBC % (auto) (0.0-0.2) /100WBC Smear Tech's Comments PT (10.8-13.0) SEC INR (0.9-1.1) APTT (24.1-38.0) SEC D-Dimer NG/ML Sodium 136 (135-145) mmol/L Potassium 4.1 (3.3-5.1) mmol/L Chloride 103 (96-108) mmol/L Carbon Dioxide 20 L (22-29) mmol/L Anion Gap 17 (12-20) BUN 23 H (9-16) mg/dL Creatinine 0.90 (0.5-1.4) mg/dL Estim Creat Clear Calc 79.5 Estimated GFR > 60 POC Glucose (60-115) mg/dL Random Glucose 242 H D (60-115) mg/dL Lactic Acid 2.0 (0.5-2.0) mmol/L Calcium 7.9 L D (8.4-10.2) mg/dL Ferritin 665 H (20-250) ng/mL Total Bilirubin 1.0 (0.0-1.0) mg/dL Direct Bilirubin 0.4 (0.0-0.5) mg/dL AST 30 (5-37) U/L ALT 13 (0-40) U/L Alkaline Phosphatase 45 D (39-117) U/L Lactate Dehydrogenase 380 H (118-273) U/L C-Reactive Protein 20.13 H (< or = 0.50) mg/dL Total Protein 6.6 (6.5-8.0) g/dL Albumin 3.4 L (3.5-5.0) g/dL Urine Color YELLOW Urine Appearance HAZY Urine pH 5.5 (5.0-8.0) Ur Specific [place] >= 1.030 H (1.005-1.025) Urine Protein 2+ H (NEG-TRACE) MG/DL Urine Glucose (UA) NEG (NEG) MG/DL Urine Ketones 15 (NEG) MG/DL Urine Blood 3+ H (NEG) Urine Nitrite NEG (NEG) Ur Leukocyte Esterase NEG (NEG) Urine RBC 50-75 H (0) /HPF Urine WBC 0-2 (0-4) /HPF Ur Squamous Epith Cells TRACE /LPF Urine Bacteria 1+ /LPF ECG Data Attestation: I personally reviewed and interpreted this ECG as follows: Interpretation: Normal sinus rhythm with heart rate 77 beats per minute normal intervals normal axis no acute ST wave changes no acute ischemia Critical Care Time Critical Care Time Critical Care Time: Yes Total Critical Care Time: 45 Attestation: I spent 45 minutes of critical care, with interventions, assessments, speaking to patient, consultants, and family. Discharge Plan Discharge Clinical Impression: Pneumonia due to COVID-19 virus, Hypoxia Patient Disposition: Admitted As Inpatient Interventions: Admission Worksheet (ED) Last Done: 12/01/20 23:44 Discharge Date/Time: 12/01/20 23:44
[2020-12-01] MEDS: 0.9 % Sodium Chloride 1,000 ML 999 ML IVCONT (16:38)
[2020-12-01 16:48] LABS: SLIDE REVIEW VERIFIED
[2020-12-01] MEDS: Acetaminophen 325 MG TABLET 975 MG PO (16:51)
[2020-12-01] MEDS: cefTRIAXone sodium 1 GM in 0.9 % Sodium Chloride 50 ML IV (16:51)
[2020-12-01 16:54] LABS: C Reactive Protein 20.13 mg/dL (< or = 0.50); Lactate Dehydrogenase 380 U/L (118-273)
[2020-12-01 16:55] LABS: D Dimer 763 NG/ML
--- NOTE | 2020-12-01 17:00 | PC.NURSE ---
nurse aware pt wants family update, provider will come out and update patient
[2020-12-01 17:16] LABS: Ferritin 665 ng/mL (20-250)
[2020-12-01] MEDS: Albuterol Sulfate 90 MCG 8 GM INHALER 4 PUFF INHALE (18:20)
[2020-12-01] MEDS: dexAMETHasone sod phosphate 4 MG/ML VIAL 6 MG IVPUSH (18:22)
[2020-12-01] MEDS: Doxycycline Hyclate 100 MG in 0.9 % Sodium Chloride 250 ML 166.67 MG IV (18:31)
--- NOTE | 2020-12-01 18:52 | PC.NURSE ---
Pt placed on high flow around 1700 50liters and 100%. Sats at that setting maintained at 94%. He was able to titrate down to 90% continued on the 50liters with sats 92% on that setting. He remains on 50liters and 90% at this time.
--- NOTE | 2020-12-01 19:47 | PC.NURSE ---
This RN updating family on the phone regarding pts current condition and pending bed assignment. Pharm called for med rec.
--- NOTE | 2020-12-01 21:12 | PC.NURSE ---
Pt continuously talking on the phone. Pt calling this RN into room reporting SOB after he got off the phone. Pt advised to rest in bed and conserve his breathing. RR 33/min, on high flow, pt remains satting @ 93%. Lights dim for comfort and to encourage rest. VSS at this time, awaiting room assignment.
--- NOTE | 2020-12-01 21:30 | PC.NURSE ---
CT aware of pending STAT CT of abdomen/pelvis.
--- NOTE | 2020-12-01 22:15 | PC.NURSE ---
This RN calling respiratory as pt is on high flow but is scheduled for a CT scan of abdomen and pelvis. Per RT, pt is unable to be transport to CT on high flow and must be switched to a NRB for the CT scan.
--- NOTE | 2020-12-01 22:24 | PC.NURSE ---
Off to CT on a NRB @ 25 lpm.
--- NOTE | 2020-12-01 22:46 | PC.NURSE ---
Pt returns from CT without incident. RT at bedside reapplying high flow. VSS at this time, awaiting room assignment.
--- NOTE | 2020-12-01 22:50 | PC.NURSE ---
Per MD Catalan, pt does not need to be reswabbed for Covid for admission.
--- NOTE | 2020-12-01 23:07 | PC.NURSE ---
Report given to [facility] RN.
[2020-12-02] VITALS (13 sets, daily range): BP systolic 128–159; BP diastolic 66–85; PULSE 70–88; RESP 20–32; TEMP 36.1–38; O2SAT 86–96; BMI 31.4
[2020-12-02] MEDS: Heparin Sodium,Porcine 5,000 UNIT/ML VIAL 5000 UNIT SUBCUT ×3 (00:03→22:12)
[2020-12-02] MEDS: 0.9 % Sodium Chloride Flush 3 ML SYRINGE IVFLUSH ×4 (00:14→22:13)
[2020-12-02] MEDS: guaiFEN/Codeine SF 200/20/10ML 10 ML LIQUID 5 ML PO ×2 (04:08→23:59)
[2020-12-02] MEDS: Acetaminophen 325 MG TABLET 650 MG PO ×2 (04:08→14:30)
[2020-12-02 05:34] LABS: Basophils Percent Auto 0.1 % (0-2); Hematocrit 42.8 % (42-52); Hemoglobin 13.6 g/dl (14.0-18.0); Imm Gran Abs Auto 0.09 X10*3/uL (0.00-0.03); Imm Gran Pct Auto 0.6 % (0.0-0.4); Lymphocytes Absolute Auto 0.8 X10*3/uL (1.2-4.9); Lymphocytes Percent Auto 5.1 % (20-40); MANUAL DIFF FLAG SCAN; Mean Corpuscular HGB Conc 31.8 g/dl (31.0-36.0); Mean Corpuscular Hemoglobin 27.5 pg (27.0-33.0); Mean Corpuscular Volume 86.6 fL (80-98); Mean Platelet Volume 10.8 fL (9.4-12.4); Monocytes Absolute Auto 0.2 X10*3/uL (0.1-1.2); Monocytes Percent Auto 1.4 % (2-11); Neutrophils Absolute Auto 14.9 X10*3/uL (2.0-8.3); Neutrophils Percent Auto 92.8 % (45-73); Platelet Count 209 X10*3/uL (160-400); Red Blood Count 4.94 X10*6/uL (4.60-5.80); Red Cell Distribution Width 13.9 % (11.0-16.0); SCAN SMEAR FLAG 1; White Blood Count 16.1 X10*3/uL (4.8-10.8)
[2020-12-02 05:35] LABS: SLIDE REVIEW VERIFIED
[2020-12-02 05:39] LABS: Anion Gap 22 (12-20); Blood Urea Nitrogen 20 mg/dL (9-16); Calcium 8.3 mg/dL (8.4-10.2); Carbon Dioxide 18 mmol/L (22-29); Chloride 104 mmol/L (96-108); Creatinine Clr Calc Pharmacy 84.2; Estimated Glomerular Filt Rate > 60; Glucose Random 352 mg/dL (60-115); Potassium 3.9 mmol/L (3.3-5.1); Sodium 140 mmol/L (135-145)
[2020-12-02] MEDS: Insulin Lispro 100 UNIT/ML 3 ML VIAL SUBCUT ×4 (06:13→22:12)
[2020-12-02] MEDS: traMADoL HCL 50 MG TABLET PO (06:14)
--- NOTE | 2020-12-02 06:20 | PM.IMHP ---
History of Present Illness Date of Service: 12/01/20 Chief Complaint: Shortness of breath, This is a 70-year-old male with past medical history of diabetes who presents to the hospital complaints of shortness breast. Patient was evaluated in the hospital multiple times prior to today's presentation with COVID like symptoms. On initial presentation on the 22 of November patient was diagnosed with COVID 19 virus but at that time was not hypoxic and sent home, he returned on the with worsening symptoms also was not hypoxic, he was sent home with Decadron, doxycycline, and azithromycin but returned today stating that he has worsening difficulty breathing, abdominal pain, nausea, fever and chills, constant cough, low appetite, constipation and overall doing worse. On arrival of EMS patient is O2 found to be 70% on room air. Patient currently on high-flow satting 93-94%. Other vitals are significant for Temp of 104.3?, respiratory rate of 22, heart rate of 81, and blood pressure of 147/78, Labs significant for WBC count of 13.4, hemoglobin of 12.9, PT of 16.6, INR 1.4, sodium of 136, BUN of 23, creatinine of 0.9, ferritin of 665, LDH of 380, CRP of 20, albumin 3.4, UA that is positive for blood and RBC, abdominal/pelvic CT shows no acute intra-abdominal disease Past medical history confirmed with patient as below Review of Systems Review of Systems: Yes all other systems are reviewed and are negative PENDING SALE TO [facility] Medical History BPH loc w urin obs/LUTS Chronic GERD COVID-19 Diabetes type 2, controlled Irritable bowel syndrome Nephrolithiasis Family History Father Medical history unknown Mother Medical history unknown Surgical History History of kidney stones Social History Household Members: None Housing: Apartment Do you presently have visiting nurse or other home services: No Alcohol intake: never Smoking Status: Former smoker Tobacco Type: Cigarette Use of substances other than those prescribed or required for medical reasons: No Currently Displaying Signs/Symptoms of Drug Intoxication Withdrawal: No Have you been hit, kicked, punched, or otherwise hurt by someone within the past year? If so, by whom?: No Do you feel safe in your current relationship?: No Current Relationship Is there a partner from a previous relationship who is making you feel unsafe now?: No Advance Directives: No Advance Directives Information Provided: No Do you have thoughts of harming others: None Do you have a plan to hurt others: No Plan Recently lost weight without trying: No Meds Allergies Allergy/AdvReac Type Severity Reaction Status Date / Time metronidazole [Flagyl] Allergy Unknown Insomnia Verified 07/28/20 14:07 TOURNIQUET FROM IV KIT Allergy Intermediate HIVES Uncoded 05/28/20 16:59 Active Medications: Current Medications Generic Name Dose Route Start Last Admin Trade Name Freq PRN Reason Stop Dose Admin Acetaminophen 650 mg 12/01/20 22:47 12/02/20 04:08 Acetaminophen 325 Mg Tablet PO 650 mg Q6H PRN Administration Pain, Mild (Pain Scale 1-3) Dexamethasone Sodium Phosphate 6 mg 12/02/20 09:00 Dexamethasone Sod Phosphate 4 Mg/Ml Vial IVPUSH DAILY EKATERINA Guaifenesin/Codeine Phosphate 5 ml 12/01/20 22:47 12/02/20 04:08 Guaifen/Codeine Sf 200/20/10ml 10 Ml Liquid PO 5 ml Q6H PRN Administration cough Heparin Sodium (Porcine) 5,000 unit 12/01/20 22:47 12/02/20 00:03 Heparin Sodium,Porcine 5,000 Unit/Ml Vial SUBCUT 5,000 unit Q12H EKATERINA Administration Insulin Human Lispro 0 unit 12/02/20 07:30 12/02/20 06:13 Insulin Lispro 100 Unit/Ml 3 Ml Vial SUBCUT 10 unit QIDACHS [facility] Administration Protocol Magnesium Hydroxide 30 ml 12/02/20 09:00 Milk Of Magnesia 30 Ml Oral.Susp PO DAILY [facility] Non-Formulary Medication 200 mg 12/02/20 09:00 Itraconazole PO DAILY EK[facility] Ondansetron HCl 4 mg 12/01/20 22:47 Ondansetron Hcl 4 Mg/2 Ml Vial IVPUSH Q8H PRN Nausea and Vomiting Pharmacy Consult 1 each 12/01/20 19:43 Consult Rx Perform Med Rec MISCELLANE ONCE PRN Consult order Sodium Chloride 3 ml 12/02/20 00:00 12/02/20 00:14 0.9 % Sodium Chloride Flush 3 Ml Syringe IVFLUSH 3 ml QSHIFT EK[facility] Administration Physical Exam Vital Signs and Narrative: Vital Signs: Last Vital Signs Temp 98.3 F 12/02/20 06:00 Pulse 81 12/02/20 03:51 Resp 30 H 12/02/20 04:25 BP 144/80 H 12/02/20 03:51 Pulse Ox 95 12/02/20 03:51 Body Mass Index 31.4 Const: General: cooperative and no acute distress Orientation/consciousness: patient oriented x3 Eyes: General: appearance normal, both eyes and all related structures Resp: Effort & Inspection: able to speak in complete sentences and abnormal respiratory pattern Auscultation: crackles Cardio: Rate: regular rate Rhythm: regular rhythm GI: Palpation (GI): Soft to palpation Auscultation: normal bowel sounds Skin: General skin exam: no rashes or lesions noted Neuro: General: patient oriented x3 Cognition (Neuro): normal cognition Extrem: General: Yes normal to inspection and Yes no pedal edema Results Labs CBC and Chem 7: 12/02/20 04:25 12/02/20 04:25 Labs: Laboratory Results - last 24 hr 12/01/20 12/01/20 12/01/20 15:06 15:31 15:31 MCV 84.8 MCH 27.9 MCHC 32.9 RDW 13.4 Plt Count 183 MPV 10.1 Immature Gran % (Auto) 0.7 H Neut % (Auto) 90.2 H Lymph % (Auto) 7.3 L [place] % (Auto) 1.7 L Eos % (Auto) 0.0 Baso % (Auto) 0.1 Lymph # (Auto) 1.0 L [place] # (Auto) 0.2 Eos # (Auto) 0.0 Baso # (Auto) 0.0 Abs Immat Gran (auto) 0.09 H Absolute Neuts (auto) 12.1 H Absolute Nucleated RBC 0.000 Nucleated RBC % (auto) 0.0 Smear Tech's Comments VERIFIED PT 16.6 H INR 1.4 H APTT 30.5 D-Dimer 763 Anion Gap Estim Creat Clear Calc Estimated GFR POC Glucose 226 H Random Glucose Lactic Acid Calcium Ferritin Total Bilirubin Direct Bilirubin AST ALT Alkaline Phosphatase Lactate Dehydrogenase C-Reactive Protein Total Protein Albumin Urine Color Urine Appearance Urine pH Ur Specific [place] Urine Protein Urine Glucose (UA) Urine Ketones Urine Blood Urine Nitrite Ur Leukocyte Esterase Urine RBC Urine WBC Ur Squamous Epith Cells Urine Bacteria 12/01/20 12/01/20 12/01/20 15:31 15:31 15:34 MCV MCH MCHC RDW Plt Count MPV Immature Gran % (Auto) Neut % (Auto) Lymph % (Auto) [place] % (Auto) Eos % (Auto) Baso % (Auto) Lymph # (Auto) [place] # (Auto) Eos # (Auto) Baso # (Auto) Abs Immat Gran (auto) Absolute Neuts (auto) Absolute Nucleated RBC Nucleated RBC % (auto) Smear Tech's Comments PT INR APTT D-Dimer Anion Gap 17 Estim Creat Clear Calc 79.5 Estimated GFR > 60 POC Glucose Random Glucose 242 H D Lactic Acid 2.0 Calcium 7.9 L D Ferritin 665 H Total Bilirubin 1.0 Direct Bilirubin 0.4 AST 30 ALT 13 Alkaline Phosphatase 45 D Lactate Dehydrogenase 380 H C-Reactive Protein 20.13 H Total Protein 6.6 Albumin 3.4 L Urine Color YELLOW Urine Appearance HAZY Urine pH 5.5 Ur Specific [place] >= 1.030 H Urine Protein 2+ H Urine Glucose (UA) NEG Urine Ketones 15 Urine Blood 3+ H Urine Nitrite NEG Ur Leukocyte Esterase NEG Urine RBC 50-75 H Urine WBC 0-2 Ur Squamous Epith Cells TRACE Urine Bacteria 1+ 12/02/20 12/02/20 04:25 04:25 MCV 86.6 MCH 27.5 MCHC 31.8 RDW 13.9 Plt Count 209 MPV 10.8 Immature Gran % (Auto) 0.6 H Neut % (Auto) 92.8 H Lymph % (Auto) 5.1 L [place] % (Auto) 1.4 L Eos % (Auto) 0.0 Baso % (Auto) 0.1 Lymph # (Auto) 0.8 L [place] # (Auto) 0.2 Eos # (Auto) 0.0 Baso # (Auto) 0.0 Abs Immat Gran (auto) 0.09 H Absolute Neuts (auto) 14.9 H Absolute Nucleated RBC 0.000 Nucleated RBC % (auto) 0.0 Smear Tech's Comments VERIFIED PT INR APTT D-Dimer Anion Gap 22 H Estim Creat Clear Calc 84.2 Estimated GFR > 60 POC Glucose Random Glucose 352 H* Lactic Acid Calcium 8.3 L Ferritin Total Bilirubin Direct Bilirubin AST ALT Alkaline Phosphatase Lactate Dehydrogenase C-Reactive Protein Total Protein Albumin Urine Color Urine Appearance Urine pH Ur Specific [place] Urine Protein Urine Glucose (UA) Urine Ketones Urine Blood Urine Nitrite Ur Leukocyte Esterase Urine RBC Urine WBC Ur Squamous Epith Cells Urine Bacteria Imaging Radiologist's Impressions: Impressions Chest X-Ray 12/01/20 17:06 IMPRESSION: Patchy bilateral airspace disease suggesting underlying atypical or viral infectious etiology. Abdomen/Pelvis CT 12/01/20 22:39 IMPRESSION: 1. Patchy and streaky bibasilar airspace opacities. Atelectasis and/or pneumonia. 2. Cholelithiasis. No acute change of the gallbladder. 3. Diverticulosis of the colon. There is no acute abnormality of the bowel. 4. Hypodensity in the parapelvic area of both kidneys likely due to parapelvic cysts. Assessment and Plan (1) Acute respiratory failure with hypoxia: Status: Acute (2) Pneumonia due to COVID-19 virus: Status: Acute (3) Constipation: Status: Acute (4) Sepsis: Status: Acute This is a 70-year-old male with past medical history of diabetes who presents to the hospital with worsening COVID-19 symptoms including hypoxia and fever # acute hypoxic respiratory failure - secondary to COVID-19 pneumonia - patient O2 in the 70s on arrival of EMS, currently on high-flow satting around 93% - will start him on IV Decadron, consult infectious disease for possible monoclonal antibody versus other measures given his severe to of symptoms - O2 supplement as required - monitor respiratory status # COVID 19 PNA - management as above with O2, decadron, ID consult # Constipation - started on bowel regimen - Abd CT negative for any acute abnormality # DM - hold oral antihyperglycemic - started on low-dose sliding scale insulin - diabetic diet DVT prophylaxis: Heparin subQ
--- NOTE | 2020-12-02 06:45 | PC.NURSE ---
Critical lab came back at 0540 with glucose of 352. Dr. Catalan instructed to give insulin lispro 10 units at this time. Will recheck blood sugar shortly.
[2020-12-02 07:27] LABS: Glucose, Whole Blood 320 mg/dL (60-115)
[2020-12-02] MEDS: dexAMETHasone sod phosphate 4 MG/ML VIAL 6 MG IVPUSH (08:17)
[2020-12-02] MEDS: Milk of Magnesia 30 ML ORAL.SUSP PO (08:18)
[2020-12-02 09:48] LABS: Glucose, Whole Blood 269 mg/dL (60-115)
--- NOTE | 2020-12-02 09:55 | HO.PM.IMPN ---
Subjective Subjective Date of Service: 12/02/20 Interval History: abdominal pain, sob Cardiovascular Cardiovascular: Reports no additional cardiovascular complaints Genitourinary Genitourinary: Reports no additional male genitourinary complaints Physical Exam Vital Signs: Vital Signs: Last Vital Signs Temp 98.4 F 12/02/20 07:33 Pulse 88 12/02/20 07:33 Resp 28 H 12/02/20 07:51 BP 130/70 12/02/20 07:33 Pulse Ox 90 L 12/02/20 07:33 Body Mass Index 31.4 General: AO X 3, in respiratory distress, tachypneic Resp: rales bilateral CVS: S1,S2,RRR GI: soft, non tender, non distended Neuro: motor grossly intact Psych: appropriate affect Objective Data Current Medications Generic Name Dose Route Start Last Admin Trade Name Freq PRN Reason Stop Dose Admin Acetaminophen 650 mg 12/01/20 22:47 12/02/20 04:08 Acetaminophen 325 Mg Tablet PO 650 mg Q6H PRN Administration Pain, Mild (Pain Scale 1-3) Bisacodyl 10 mg 12/02/20 09:52 Bisacodyl 10 Mg Supp.Rect CO 12/02/20 09:53 ONCE ONE Dexamethasone Sodium Phosphate 6 mg 12/02/20 09:00 12/02/20 08:17 Dexamethasone Sod Phosphate 4 Mg/Ml Vial IVPUSH 6 mg DAILY EK[facility] Administration Guaifenesin/Codeine Phosphate 5 ml 12/01/20 22:47 12/02/20 04:08 Guaifen/Codeine Sf 200/20/10ml 10 Ml Liquid PO 5 ml Q6H PRN Administration cough Heparin Sodium (Porcine) 5,000 unit 12/01/20 22:47 12/02/20 00:03 Heparin Sodium,Porcine 5,000 Unit/Ml Vial SUBCUT 5,000 unit Q12H [facility] Administration Insulin Human Lispro 0 unit 12/02/20 07:30 12/02/20 06:13 Insulin Lispro 100 Unit/Ml 3 Ml Vial SUBCUT 10 unit QIDACHS [facility] Administration Protocol Magnesium Hydroxide 30 ml 12/02/20 09:00 12/02/20 08:18 Milk Of Magnesia 30 Ml Oral.Susp PO 30 ml DAILY [facility] Administration Non-Formulary Medication 200 mg 12/02/20 09:00 Itraconazole PO DAILY [facility] Ondansetron HCl 4 mg 12/01/20 22:47 Ondansetron Hcl 4 Mg/2 Ml Vial IVPUSH Q8H PRN Nausea and Vomiting Pharmacy Consult 1 each 12/01/20 19:43 Consult Rx Perform Med Rec MISCELLANE ONCE PRN Consult order Sodium Chloride 3 ml 12/02/20 00:00 12/02/20 08:17 0.9 % Sodium Chloride Flush 3 Ml Syringe IVFLUSH 3 ml QSHIFT [facility] Administration Labs CBC & Chem 7: 12/02/20 04:25 12/02/20 04:25 Assessment and Plan (1) Sepsis: Status: Acute (2) Pneumonia due to COVID-19 virus: Status: Acute Assessment and Plan: 70M prsented with sob Viral sepsis present on admission and acute hypoxic respiratory failure secondary to COVID pneumonia Severe hypoxia getting worse today requiring high-flow and non-rebreather Continue Decadron day 2 ID to see Diabetes Insulin sliding scale Constipation Dulcolax [place]
[2020-12-02] MEDS: bisacodyL 10 MG SUPP.RECT PR (10:48)
[2020-12-02 11:26] LABS: Glucose, Whole Blood 314 mg/dL (60-115)
--- NOTE | 2020-12-02 11:33 | MHC.CM.PN ---
CM met with patient at the bedside who is alert and oriented x 3 and reports he lives alone and is independent. CM assisted patient with a HCP, son Pankaj [phone] and placed a copy on file. Discussed discharge plan, home no services pending hospital course. Son will be able to transport patient. CM will continue to follow patient for discharge needs.
--- NOTE | 2020-12-02 14:47 | W.PM.IDCN ---
History of Present Illness Data of Consult Service Date: 12/02/20 Requesting physician: Alex Sandoval Primary Care Provider: Unknown Physician HPI Reason for consult: hypoxia He has been seen twice in ER for shortness of breath and cough. He started symptoms COVID 11/21 He has had shortness of breath and cough and both ER visits had no hypoxia with oxygen saturation of 96% on RA. He was seen in ER on 11/22 and 12/01 and on 12/01 received Robitussin with codeine as well as Zmax and Doxycycline He returned today with shortness of breath and is now on 90% HFNC He has not received vaccine or monoclonal antibodies He has no nausea or vomiting Review of Systems Review of Systems: Yes all other systems are reviewed and are negative PMFSH Past Medical History Medical History BPH loc w urin obs/LUTS Chronic GERD COVID-19 Diabetes type 2, controlled Irritable bowel syndrome Nephrolithiasis Family History Family History Father Medical history unknown Mother Medical history unknown Family history: reviewed and not pertinent Surgical History Surgical History History of kidney stones Social History Social History Household Members: None Housing: Apartment Do you presently have visiting nurse or other home services: No Alcohol intake: never Smoking Status: Former smoker Tobacco Type: Cigarette Use of substances other than those prescribed or required for medical reasons: No Currently Displaying Signs/Symptoms of Drug Intoxication Withdrawal: No Have you been hit, kicked, punched, or otherwise hurt by someone within the past year? If so, by whom?: No Do you feel safe in your current relationship?: No Current Relationship Is there a partner from a previous relationship who is making you feel unsafe now?: No Advance Directives: No Advance Directives Information Provided: No Do you have thoughts of harming others: None Do you have a plan to hurt others: No Plan Recently lost weight without trying: No service: No Current occupational status: retired Meds Allergies Allergy/AdvReac Type Severity Reaction Status Date / Time metronidazole [Flagyl] Allergy Unknown Insomnia Verified 07/28/20 14:07 TOURNIQUET FROM IV KIT Allergy Intermediate HIVES Uncoded 05/28/20 16:59 Active Medications: Current Medications Generic Name Dose Route Start Last Admin Trade Name Frefannie PRN Reason Stop Dose Admin Acetaminophen 650 mg 12/01/20 22:47 12/02/20 14:30 Acetaminophen 325 Mg Tablet PO 650 mg Q6H PRN Administration Pain, Mild (Pain Scale 1-3) Dexamethasone Sodium Phosphate 6 mg 12/02/20 09:00 12/02/20 08:17 Dexamethasone Sod Phosphate 4 Mg/Ml Vial IVPUSH 6 mg DAILY EK[facility]INA Administration Guaifenesin/Codeine Phosphate 5 ml 12/01/20 22:47 12/02/20 04:08 Guaifen/Codeine Sf 200/20/10ml 10 Ml Liquid PO 5 ml Q6H PRN Administration cough Heparin Sodium (Porcine) 5,000 unit 12/01/20 22:47 12/02/20 10:47 Heparin Sodium,Porcine 5,000 Unit/Ml Vial SUBCUT 5,000 unit Q12H [facility] Administration Insulin Human Lispro 0 unit 12/02/20 07:30 12/02/20 12:02 Insulin Lispro 100 Unit/Ml 3 Ml Vial SUBCUT 8 unit QIDACHS [facility] Administration Protocol Magnesium Hydroxide 30 ml 12/02/20 09:00 12/02/20 08:18 Milk Of Magnesia 30 Ml Oral.Susp PO 30 ml DAILY E[facility] Administration Non-Formulary Medication 200 mg 12/02/20 09:00 Itraconazole PO DAILY [facility] Ondansetron HCl 4 mg 12/01/20 22:47 Ondansetron Hcl 4 Mg/2 Ml Vial IVPUSH Q8H PRN Nausea and Vomiting Pharmacy Consult 1 each 12/01/20 19:43 Consult Rx Perform Med Rec MISCELLANE ONCE PRN Consult order Sodium Chloride 3 ml 12/02/20 00:00 12/02/20 08:17 0.9 % Sodium Chloride Flush 3 Ml Syringe IVFLUSH 3 ml QSHIFT [facility] Administration Physical Exam Vital Signs: Vital Signs: Last Vital Signs Temp 98.9 F 12/02/20 12:00 Pulse 82 12/02/20 12:00 Resp 22 H 12/02/20 12:00 BP 132/80 12/02/20 12:00 Pulse Ox 90 L 12/02/20 12:00 Body Mass Index 31.4 Const: General: cooperative Orientation/consciousness: patient oriented x3 HENMT: Head: Yes normal to inspection Mouth: Normal oral and palatal mucosa present Resp: Effort & Inspection: labored Cardio: Rate: regular rate Rhythm: regular rhythm GI: Palpation (GI): Soft to palpation and nontender : General: Yes no CVA tenderness Back/Spine/Pelvis: Back: no CVA tenderness Skin: General skin exam: no rashes or lesions noted Neuro: General: patient oriented x3 Extrem: General: Yes normal to inspection Results Labs CBC & Chem 7: 12/02/20 04:25 12/02/20 04:25 Labs: Short CBC 12/01/20 12/02/20 Range/Units 15:31 04:25 WBC 13.4 H 16.1 H (4.8-10.8) X10*3/uL Hgb 12.9 L 13.6 L (14.0-18.0) g/dl Hct 39.2 L 42.8 (42-52) % Plt Count 183 209 (160-400) X10*3/uL BMP 12/01/20 12/02/20 15:31 04:25 Sodium 136 140 Potassium 4.1 3.9 Chloride 103 104 Carbon Dioxide 20 L 18 L BUN 23 H 20 H Creatinine 0.90 0.85 Calcium 7.9 L D 8.3 L Liver Function 12/01/20 Range/Units 15:31 Total Bilirubin 1.0 (0.0-1.0) mg/dL Direct Bilirubin 0.4 (0.0-0.5) mg/dL AST 30 (5-37) U/L ALT 13 (0-40) U/L Alkaline Phosphatase 45 D (39-117) U/L Albumin 3.4 L (3.5-5.0) g/dL Urine 12/01/20 Range/Units 15:34 Urine Color YELLOW Urine Appearance HAZY Urine pH 5.5 (5.0-8.0) Ur Specific [place] >= 1.030 H (1.005-1.025) Urine Protein 2+ H (NEG-TRACE) MG/DL Urine Glucose (UA) NEG (NEG) MG/DL Assessment and Plan (1) Sepsis: Problem details: He has COVID as reason for sepsis likely He is on dexamethasone and has had symptoms for 11-12 days He would not benefit from Remdesivir or Tocilizumab at this stage (over 10 days) and convalescent plasma would not be helpful Status: Acute Would give steroids and supportive oxygen Would not give antibiotics (2) Acute respiratory failure with hypoxia: Status: Acute (3) Pneumonia due to COVID-19 virus: Status: Acute
[2020-12-02 16:20] LABS: Glucose, Whole Blood 282 mg/dL (60-115)
--- NOTE | 2020-12-02 17:35 | PC.NURSE ---
0830 PT WITH SATS 82-83% ON HIGH FLOW 50L/100%. RESP CALLED AND PLACED ON NRB WELL. SATS THROUGHOUT THE DAY RANGE FROM 87-91%. DESATS TO LOW 80'S IF EITHER ARE REMOVED. REINFORCED IMPORTANCE OF KEEPING MASK AND CANNULA IN PLACE. ASSISTED WITH ORAL INTAKE. DULCOLAX SUPPOSITORY GIVEN TO PT THIS MORNING FOR CONSTIPATION WITH GOOD EFFECT, LARGE BM ON COMMODE. OOB WITH 1 ASSIST.
[2020-12-02 20:33] LABS: Glucose, Whole Blood 291 mg/dL (60-115)
[2020-12-03] VITALS (20 sets, daily range): BP systolic 87–163; BP diastolic 54–93; PULSE 66–130; RESP 18–40; TEMP 36.2–38.2; O2SAT 89–98
[2020-12-03] MEDS: 0.9 % Sodium Chloride Flush 3 ML SYRINGE IVFLUSH ×2 (00:07→16:17)
[2020-12-03] MEDS: traMADoL HCL 50 MG TABLET PO (03:54)
[2020-12-03 05:50] LABS: Basophils Percent Auto 0.1 % (0-2); Hematocrit 39.3 % (42-52); Imm Gran Abs Auto 0.16 X10*3/uL (0.00-0.03); Imm Gran Pct Auto 1.1 % (0.0-0.4); Lymphocytes Absolute Auto 0.8 X10*3/uL (1.2-4.9); Lymphocytes Percent Auto 5.2 % (20-40); MANUAL DIFF FLAG SCAN; Mean Corpuscular HGB Conc 33.1 g/dl (31.0-36.0); Mean Corpuscular Volume 84.5 fL (80-98); Mean Platelet Volume 10.6 fL (9.4-12.4); Monocytes Absolute Auto 0.4 X10*3/uL (0.1-1.2); Monocytes Percent Auto 2.4 % (2-11); Neutrophils Absolute Auto 13.2 X10*3/uL (2.0-8.3); Neutrophils Percent Auto 91.2 % (45-73); Platelet Count 229 X10*3/uL (160-400); Red Blood Count 4.65 X10*6/uL (4.60-5.80); SCAN SMEAR FLAG 1; White Blood Count 14.5 X10*3/uL (4.8-10.8)
[2020-12-03 06:06] LABS: D Dimer 661 NG/ML
[2020-12-03] MEDS: Morphine Sulfate 4 MG/ML CARTRIDGE IVPUSH (06:13)
[2020-12-03 06:16] LABS: SLIDE REVIEW VERIFIED
[2020-12-03 06:17] LABS: Anion Gap 18 (12-20); Blood Urea Nitrogen 29 mg/dL (9-16); C Reactive Protein 28.29 mg/dL (< or = 0.50); Calcium 8.2 mg/dL (8.4-10.2); Carbon Dioxide 18 mmol/L (22-29); Chloride 103 mmol/L (96-108); Creatinine Clr Calc Pharmacy 94.2; Estimated Glomerular Filt Rate > 60; Glucose Fasting 292 mg/dL (60-99); Potassium 4.8 mmol/L (3.3-5.1); Sodium 134 mmol/L (135-145)
[2020-12-03 07:25] LABS: Glucose, Whole Blood 333 mg/dL (60-115)
[2020-12-03] MEDS: Insulin Lispro 100 UNIT/ML 3 ML VIAL SUBCUT ×4 (07:45→20:54)
[2020-12-03] MEDS: Milk of Magnesia 30 ML ORAL.SUSP PO (08:04)
[2020-12-03] MEDS: dexAMETHasone sod phosphate 4 MG/ML VIAL 6 MG IVPUSH (08:04)
[2020-12-03 11:07] LABS: Glucose, Whole Blood 333 mg/dL (60-115)
[2020-12-03] MEDS: Heparin Sodium,Porcine 5,000 UNIT/ML VIAL 5000 UNIT SUBCUT ×2 (11:34→22:14)
[2020-12-03 12:49] LABS: ABG Base Excess 0.2 mmol/L; ABG HCO3 22 mmol/L (22-26); ABG pCO2 29 mmHg (32-45); ABG pCO2 TC 28 mmHg (32-45); ABG pH 7.48 (7.35-7.45); ABG pO2 70 mmHg (83-108); ABG pO2 TC 66 (83-108)
[2020-12-03] MEDS: propofoL 200 MG/20 ML VIAL 70 MG IVPUSH (14:46)
[2020-12-03] MEDS: Rocuronium Bromide 50 MG/5 ML VIAL IVPUSH ×2 (14:48→16:20)
[2020-12-03 14:56] LABS: ABG Refer to POC result
--- NOTE | 2020-12-03 15:19 | HO.PM.IMPN ---
Subjective Subjective Date of Service: 12/03/20 Interval History: Seen in f/u for acute hypoxic respiratory failure d/t covid pneumonia. He has been strugling to breath with maximum oxygen via high flow and NRB and becoming confused. Review of Systems no fever sob Physical Exam Vital Signs: Vital Signs: Last Vital Signs Temp 97.2 F 12/03/20 11:33 Pulse 73 12/03/20 11:33 Resp 40 H 12/03/20 11:58 BP 130/78 12/03/20 11:33 Pulse Ox 94 12/03/20 11:33 Body Mass Index 31.4 General: difficulty to understand as seem confused with language barier also Resp: showing accessory muscle use CVS: regular on monitor GI: NT Skin: No rash Neuro: motor grossly intact Psych: flat affect Objective Data Current Medications Generic Name Dose Route Start Last Admin Trade Name Freq PRN Reason Stop Dose Admin Acetaminophen 650 mg 12/01/20 22:47 12/02/20 14:30 Acetaminophen 325 Mg Tablet PO 650 mg Q6H PRN Administration Pain, Mild (Pain Scale 1-3) Dexamethasone Sodium Phosphate 6 mg 12/02/20 09:00 12/03/20 08:04 Dexamethasone Sod Phosphate 4 Mg/Ml Vial IVPUSH 6 mg DAILY [facility] Administration Guaifenesin/Codeine Phosphate 5 ml 12/01/20 22:47 12/02/20 23:59 Guaifen/Codeine Sf 200/20/10ml 10 Ml Liquid PO 5 ml Q6H PRN Administration cough Heparin Sodium (Porcine) 5,000 unit 12/01/20 22:47 12/03/20 11:34 Heparin Sodium,Porcine 5,000 Unit/Ml Vial SUBCUT 5,000 unit Q12H [facility] Administration Propofol 1,000 mg in 100 mls @ 0 mls/hr 12/03/20 14:15 Diprivan IVCONT .Q0M EK[facility] Protocol Per Protocol Insulin Human Lispro 0 unit 12/02/20 07:30 12/03/20 11:34 Insulin Lispro 100 Unit/Ml 3 Ml Vial SUBCUT 8 unit QIDACHS [facility] Administration Protocol Magnesium Hydroxide 30 ml 12/02/20 09:00 12/03/20 08:04 Milk Of Magnesia 30 Ml Oral.Susp PO 30 ml DAILY [facility] Administration Non-Formulary Medication 200 mg 12/02/20 09:00 Itraconazole PO DAILY [facility] Pharmacy Consult 1 each 12/01/20 19:43 Consult Rx Perform Med Rec MISCELLANE ONCE PRN Consult order Sodium Chloride 3 ml 12/02/20 00:00 12/03/20 00:07 0.9 % Sodium Chloride Flush 3 Ml Syringe IVFLUSH 3 ml QSHIFT [facility] Administration Labs CBC & Chem 7: 12/03/20 05:31 12/03/20 05:31 Microbiology Microbiology Results: Microbiology 12/01/20 15:31 Blood - Venous Blood Culture - Preliminary No growth after 24 hours. 12/01/20 15:34 Blood - Venous Blood Culture - Preliminary No growth after 24 hours. Assessment and Plan (1) Sepsis: Status: Acute (2) Pneumonia due to COVID-19 virus: Status: Acute Assessment and Plan: 70/m with acute hypoxic resp failure due to covid PNA Viral sepsis present on admission and acute hypoxic respiratory failure secondary to COVID pneumonia Severe hypoxia getting worse today requiring high-flow and non-rebreather Continue Decadron day e ID eval and recommend: He has COVID as reason for sepsis likely He is on dexamethasone and has had symptoms for 11-12 days He would not benefit from Remdesivir or Tocilizumab at this stage (over 10 days) and convalescent plasma would not be helpful Diabetes Insulin sliding scale Constipation Dulcolax [place] Due to worsening condition with increase work of breahing w/ max O2 use, next step maybe intubation or close monitoring in ICU and therefore transfer to ICU
[2020-12-03 16:02] LABS: Glucose, Whole Blood 259 mg/dL (60-115)
--- NOTE | 2020-12-03 16:49 | PC.NURSE ---
Pt transfered to ICU at 1440 in respiratory distress. SaO2 66% on NRB. Pt was awake, restless. 1446 50mg propofol given followed by 20mg at 1448 with MD and RT at bedside. 50mg rocuronium given through R AC at 1448. Pt intubated at 1450 with 8.0 ET tube 24cm lip. Lung sounds auscultated all lobes, dim. Propofol was started at 1454 25mcg/kg/min 88.4kg. Titrated up to 50mcg/kg/min at 1610 as pt was resltess opening eyes breathing over vent, belly breathing. 1620 50mg rocuronium given for pt desatting to 83% and breathing over vent per MD. 1514 TLC placed RiJ. Original vent settings AC 20 TV 500 FiO2 100% PEEP 10 min/vol 10.1, changed at 1610 to Tv 550 and PEEP 12, SaO2 improved from 86 to 98%. OG tube placed (off) per MD. Cristofer already in place on arrival.
--- NOTE | 2020-12-03 16:56 | W.PM.CCCN ---
History of Present Illness Data of Consult Service Date: 12/03/20 [facility] Primary Care Provider: Unknown Physician HPI Reason for consult: A worsening hypoxemic respiratory failure 70-year-old male originally presented 10 days ago with dyspnea and chest discomfort and was COVID positive and came twice to the hospital sent home because he was not hypoxemic returned on the and was hypoxemic to 70% felt more comfortable on high-flow oxygen but eventually because of worsening x-ray and dyspnea had in addition 100% non-rebreather today respiratory rate was in the 40s he was having a very small alteration of mental status manifested by forgetfulness and then starting get a little agitated pulling off the oxygen and a little motion is oxygen saturations were again drop in into the 70s and when work of breathing increased transfer down here with an oxygen saturation of 67% urgently intubated with IV rocuronium and propofol without complication very easily oxygen saturation 98% on peep of 12 FiO2 of 100% tidal volume of between 505 150 cc doing comfortably well on propofol sedation p.r.n. use of rocuronium and central line was placed which is in the right atrium OG tube noted to be in down in the stomach regard to start Glucerna feedings and keep him on insulin coverage and at this point he will remain on Decadron and unfortunately outside the window of any other form of medical intervention but will watch for secondary infection and will currently keep him on DVT prophylaxis Review of Systems Review of Systems: Yes Unobtainable due to mental status PMFSH Past Medical History Medical History BPH loc w urin obs/LUTS Chronic GERD COVID-19 Diabetes type 2, controlled Irritable bowel syndrome Nephrolithiasis Family History Family History Father Medical history unknown Mother Medical history unknown Family history: reviewed and not pertinent Surgical History Surgical History History of kidney stones Social History Social History Household Members: None Housing: Apartment Do you presently have visiting nurse or other home services: No Alcohol intake: never Smoking Status: Former smoker Tobacco Type: Cigarette Use of substances other than those prescribed or required for medical reasons: No Currently Displaying Signs/Symptoms of Drug Intoxication Withdrawal: No Have you been hit, kicked, punched, or otherwise hurt by someone within the past year? If so, by whom?: No Do you feel safe in your current relationship?: No Current Relationship Is there a partner from a previous relationship who is making you feel unsafe now?: No Advance Directives: No Advance Directives Information Provided: No Do you have thoughts of harming others: None Do you have a plan to hurt others: No Plan Recently lost weight without trying: No service: No Current occupational status: retired Meds Allergies Allergy/AdvReac Type Severity Reaction Status Date / Time metronidazole [Flagyl] Allergy Unknown Insomnia Verified 07/28/20 14:07 TOURNIQUET FROM IV KIT Allergy Intermediate HIVES Uncoded 05/28/20 16:59 Active Medications: Current Medications Generic Name Dose Route Start Last Admin Trade Name Freq PRN Reason Stop Dose Admin Acetaminophen 650 mg 12/01/20 22:47 12/02/20 14:30 Acetaminophen 325 Mg Tablet PO 650 mg Q6H PRN Administration Pain, Mild (Pain Scale 1-3) Dexamethasone Sodium Phosphate 6 mg 12/02/20 09:00 12/03/20 08:04 Dexamethasone Sod Phosphate 4 Mg/Ml Vial IVPUSH 6 mg DAILY EKATERINA Administration Guaifenesin/Codeine Phosphate 5 ml 12/01/20 22:47 12/02/20 23:59 Guaifen/Codeine Sf 200/20/10ml 10 Ml Liquid PO 5 ml Q6H PRN Administration cough Heparin Sodium (Porcine) 5,000 unit 12/01/20 22:47 12/03/20 11:34 Heparin Sodium,Porcine 5,000 Unit/Ml Vial SUBCUT 5,000 unit Q12H EKATERINA Administration Propofol 1,000 mg in 100 mls @ 0 mls/hr 12/03/20 14:15 Diprivan IVCONT .Q0M EKATERINA Protocol Per Protocol Sodium Chloride 1,000 mls @ 75 mls/hr 12/03/20 17:00 Ns IVCONT .[id number] EKATERINA Insulin Human Lispro 0 unit 12/02/20 07:30 12/03/20 16:16 Insulin Lispro 100 Unit/Ml 3 Ml Vial SUBCUT 6 unit QIDACHS EKATERINA Administration Protocol Magnesium Hydroxide 30 ml 12/02/20 09:00 12/03/20 08:04 Milk Of Magnesia 30 Ml Oral.Susp PO 30 ml DAILY [facility] Administration Non-Formulary Medication 200 mg 12/02/20 09:00 Itraconazole PO DAILY [facility] Pharmacy Consult 1 each 12/01/20 19:43 Consult Rx Perform Med Rec MISCELLANE ONCE PRN Consult order Sodium Chloride 3 ml 12/02/20 00:00 12/03/20 16:17 0.9 % Sodium Chloride Flush 3 Ml Syringe IVFLUSH 3 ml QSHIFT EKATERINA Administration Sodium Chloride 3 ml 12/04/20 00:00 0.9 % Sodium Chloride Flush 3 Ml Syringe IVFLUSH QSHIFT [facility] Physical Exam Vital Signs: Vital Signs: Last Vital Signs Temp 100.6 F H 12/03/20 16:00 Pulse 101 H 12/03/20 16:00 Resp 23 H 12/03/20 16:00 BP 122/81 12/03/20 16:00 Pulse Ox 93 12/03/20 16:00 Body Mass Index 31.4 He was awake when he came down diaphoretic febrile tachypneic oxygen saturation 67% in sinus rhythm Positive neck veins at at 30? with adequate bilateral carotid upstrokes no gallops or murmurs Abdomen benign no organomegaly good bowel sounds Coarse bilateral rales No peripheral edema and good peripheral pulses no acrocyanosis Results Labs CBC & Chem 7: 12/03/20 05:31 12/03/20 05:31 Labs: Short CBC 12/03/20 Range/Units 05:31 WBC 14.5 H (4.8-10.8) X10*3/uL Hgb 13.0 L (14.0-18.0) g/dl Hct 39.3 L (42-52) % Plt Count 229 (160-400) X10*3/uL BMP 12/03/20 05:31 Sodium 134 L Potassium 4.8 D Chloride 103 Carbon Dioxide 18 L BUN 29 H Creatinine 0.76 Calcium 8.2 L Microbiology Microbiology Results: Microbiology 12/01/20 15:31 Blood - Venous Blood Culture - Preliminary No growth after 24 hours. 12/01/20 15:34 Blood - Venous Blood Culture - Preliminary No growth after 24 hours. Assessment and Plan (1) Sepsis: Status: Acute (2) Acute respiratory failure with hypoxia: Status: Acute (3) Pneumonia due to COVID-19 virus: Status: Acute (4) Hypoxia: Status: Acute (5) Diabetes mellitus: Status: Acute (6) ARDS (adult respiratory distress syndrome): Status: Acute Patient now intubated without difficulty and and ET tube in good position central line placement with monitoring of CVP and we will down stream assess cardiac function by echo in and probably screened for signs of peripheral deep vein thrombosis but keep him on DVT prophylaxis until then if on steroids glucose is out of hand we will consider IV insulin drip and cultures of sputum and blood were sent will keep him on the itraconazole for which we really have no reason yet from anybody not his position not 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
--- NOTE | 2020-12-03 17:06 | W.PM.CCHP ---
Procedures Central Line Placement Right IJ: Central Line Comments: After sterile preparation and draping using ultrasound guidance very easy access to the right internal jugular vein passing retrograde with Seldinger technique J tipped guidewire and then a triple-lumen 20 cm length CVP catheter and sterilely dressed chest x-ray documenting tip in the right atrium Consent for Procedure: Emergent-no informed consent obtained Time out performed: Yes Sterile Technique Used: Yes Patient placed on monitor/pulse ox: Yes MD prep: mask, gown and gloves Central line prep: Chlorhexidine scrub Local anesthesia used: lidocaine 1% Ultrasound used for placement: Yes Central line lumen inserted: triple Post procedure: sutured in place, good blood return, all ports aspirated, flushed, capped and sterile dressing applied Post procedure x-ray: tip of catheter in good position and no pneumothorax seen Patient tolerated procedure: well and no complications Complications: none
--- NOTE | 2020-12-03 17:08 | W.PM.CCHP ---
Procedures Intubation Intubation Comments: Intubation performed with with and 8. ET tube utilizing ultrasound guidance with excellent visualization of the vocal cords very easy intubation with good bilateral breath sounds good end-tidal CO2 response and position documented by chest x-ray fixed at 24 cm at the lip Consent for Procedure: Emergent-no informed consent obtained Time out performed: Yes Sedative: propofol Paralytic: rocuronium Laryngoscope: fiber optic video scope ET tube size: 8 ET tube uncuffed: No Tube secured depth (cm): 24 Tube secured location: lips Tube placement confirmation: visualized tube passing through cords, equal breath sounds bilaterally, no breath sounds over epigastrium and confirmation by capnometry Patient tolerated procedure: well and no complications Intubation complications: none
[2020-12-03] MEDS: 0.9 % Sodium Chloride 1,000 ML 75 ML IVCONT (17:18)
[2020-12-03] MEDS: propofoL 1,000 MG/100 ML VIAL 18.56 MG IVCONT (18:19)
[2020-12-03 20:54] LABS: Glucose, Whole Blood 304 mg/dL (60-115)
[2020-12-03 23:55] LABS: Glucose, Whole Blood 291 mg/dL (60-115)
[2020-12-04] VITALS (34 sets, daily range): BP systolic 82–161; BP diastolic 44–90; PULSE 58–122; RESP 20–32; TEMP 37.3–37.9; O2SAT 93–98
[2020-12-04] MEDS: propofoL 1,000 MG/100 ML VIAL 18.56 MG IVCONT
[2020-12-04] MEDS: 0.9 % Sodium Chloride Flush 3 ML SYRINGE IVFLUSH ×6 (00:01→21:04)
[2020-12-04] MEDS: Insulin Lispro 100 UNIT/ML 3 ML VIAL SUBCUT ×2 (00:06→06:03)
[2020-12-04] MEDS: propofoL 1,000 MG/100 ML VIAL 21.22 MG IVCONT ×5 (03:09→17:38)
[2020-12-04 05:35] LABS: VBG HCO3 22 mmol/L (22-26); VBG pCO2 32 mmHg; VBG pH 7.44 (7.32-7.43); VBG pO2 54 mmHg
[2020-12-04 05:43] LABS: MANUAL DIFF FLAG NO
[2020-12-04] MEDS: 0.9 % Sodium Chloride 1,000 ML 75 ML IVCONT ×2 (05:48→17:15)
[2020-12-04 05:54] LABS: Basophils Percent Auto 0.1 % (0-2); Hemoglobin 12.5 g/dl (14.0-18.0); Imm Gran Abs Auto 0.15 X10*3/uL (0.00-0.03); Imm Gran Pct Auto 1.4 % (0.0-0.4); Lymphocytes Absolute Auto 0.9 X10*3/uL (1.2-4.9); Lymphocytes Percent Auto 7.7 % (20-40); Mean Corpuscular HGB Conc 32.1 g/dl (31.0-36.0); Mean Corpuscular Hemoglobin 27.8 pg (27.0-33.0); Mean Corpuscular Volume 86.7 fL (80-98); Mean Platelet Volume 10.6 fL (9.4-12.4); Monocytes Absolute Auto 0.5 X10*3/uL (0.1-1.2); Monocytes Percent Auto 4.1 % (2-11); NRBC Pct Auto 0.2 /100WBC (0.0-0.2); Neutrophils Absolute Auto 9.6 X10*3/uL (2.0-8.3); Neutrophils Percent Auto 86.7 % (45-73); Platelet Count 250 X10*3/uL (160-400); Red Cell Distribution Width 14.3 % (11.0-16.0); White Blood Count 11.1 X10*3/uL (4.8-10.8)
[2020-12-04 06:00] LABS: INTERNATIONAL NORM RATIO 1.2 (0.9-1.1); Prothrombin Time 14.1 SEC (10.8-13.0)
[2020-12-04 06:02] LABS: Calcium 7.8 mg/dL (8.4-10.2); Lactate Dehydrogenase 488 U/L (118-273); Magnesium 2.7 mg/dL (1.6-2.6); Phosphorus 2.6 mg/dL (2.7-4.5)
[2020-12-04 06:04] LABS: Partial Thromboplastin Time 25.2 SEC (24.1-38.0)
[2020-12-04 06:23] LABS: Ferritin 1099 ng/mL (20-250)
[2020-12-04 06:24] LABS: Glucose, Whole Blood 331 mg/dL (60-115)
[2020-12-04 06:25] LABS: Venous Blood Gas Refer to POC result
[2020-12-04 06:32] LABS: Anion Gap 17 (12-20); Blood Urea Nitrogen 36 mg/dL (9-16); Carbon Dioxide 20 mmol/L (22-29); Chloride 104 mmol/L (96-108); Creatinine Clr Calc Pharmacy 91.7; Estimated Glomerular Filt Rate > 60; Glucose Random 329 mg/dL (60-115); Potassium 4.8 mmol/L (3.3-5.1); Sodium 136 mmol/L (135-145)
--- NOTE | 2020-12-04 06:41 | PC.NURSE ---
PT REMAINS ON AC VENT SETTINGS. FIO2 WEANED TO 60% OVERNIGHT. NO RESP DIFFICULTIES. O2 SAT MID 90'S ON 60% O2. THIS MORNING, RESP RATE UP TO 30'S. HAS BEEN SLOWLY CLIMBING. PROPOFOL WAS INCREASED FROM 35 TO 40 MCG/KG/MIN. ROCURONIUM 50 MCG IV ORDERED X1 AND GIVEN WITH GOOD EFFECT. PT TOLERATING TUBE FEEDS AND RATE TITRATED UP TO MAX DOSE ORDERED OF 50 ML/HR. NO BM. PT TURNED AND REPOS Q2H. SKIN IS INTACT. MONITOR IS STABLE, NSR, HR 60-70'S, NO ECTOPY. SMALL DOSE OF LEVOPHED NEEDED FOR BP OF MAP LOW TO MID 60'S. PT VERY SENSITIVE TO LEVO. BOTH BP AND HR GO UP QUICKLY. SBP TO 150-160'S AND HR TO 130'S. CURRENTLY LEVO IS OFF. U/O GOOD. CVP 6.
[2020-12-04 06:44] LABS: D Dimer 11915 NG/ML
[2020-12-04] MEDS: Rocuronium Bromide 50 MG/5 ML VIAL IVPUSH ×5 (06:53→19:24)
[2020-12-04 07:19] LABS: Glucose, Whole Blood 339 mg/dL (60-115)
[2020-12-04] MEDS: Chlorhexidine Gluc Oral Rinse 15 ML MOUTHWASH BUCCAL ×3 (07:37→19:36)
[2020-12-04] MEDS: dexAMETHasone sod phosphate 4 MG/ML VIAL 6 MG IVPUSH (07:39)
[2020-12-04] MEDS: Insulin Regular/NS 100 UNIT/100 ML PLAST..BAG IVCONT (07:40)
[2020-12-04] MEDS: Milk of Magnesia 30 ML ORAL.SUSP PO (07:40)
[2020-12-04 08:12] LABS: Glucose, Whole Blood 318 mg/dL (60-115)
--- NOTE | 2020-12-04 08:40 | PM.CCPN ---
Subjective Subjective Date of Service: 12/04/20 Interval History: 70-year-old male type 2 ioz-sfhubsv-jzktreytm diabetic 1st diagnosed with COVID-19 on November 22 and on the and sent home from the hospital despite dyspnea because there was no significant hypoxia and then on the was significantly hypoxic with a much worse looking chest x-ray and was admitted titrated to maximum noninvasive support respiratory rate despite increased to 40 large minute ventilation but poor alveolar ventilation O2 sats were in the high 60s when he arrived in the emergency room beginning to have slight alteration of mental status and and intubated with ease central line placed clearly was euvolemic and he was started on ventilatory support treated with intermittent rocuronium to maintain ventilator synchrony at low ARDS tidal volumes and that is worked out very successfully currently weaned to FiO2 of 60% He was screened on the and was negative for influenza and RSV Physical Exam Vital Signs: Vital Signs: Last Vital Signs Temp 99.5 F 12/04/20 08:00 Pulse 84 12/04/20 08:00 Resp 20 12/04/20 08:00 BP 116/71 12/04/20 08:00 Pulse Ox 93 12/04/20 08:00 Body Mass Index 31.4 Const: Other: Sedated and intubated Skin is intact no acrocyanosis CVP is 10 blood pressure 113/70 and not on on inotropics support and has good cardiac output good bilateral carotid upstrokes and no gallops or murmurs Chest with coarse bilateral ventilator related breath sounds Abdomen soft tolerating p.o. intake no organomegaly Skin intact Objective Data Labs CBC & Chem 7: 12/04/20 05:30 12/04/20 05:30 Labs: Laboratory Results - last 24 hr 12/03/20 12/03/20 12/03/20 11:03 12:42 15:57 WBC RBC Hgb Hct MCV MCH MCHC RDW Plt Count MPV Immature Gran % (Auto) Neut % (Auto) Lymph % (Auto) [place] % (Auto) Eos % (Auto) Baso % (Auto) Lymph # (Auto) [place] # (Auto) Eos # (Auto) Baso # (Auto) Abs Immat Gran (auto) Absolute Neuts (auto) Absolute Nucleated RBC Nucleated RBC % (auto) PT INR APTT D-Dimer O2 Saturation 92.0 ABG pH at Pt Temp 7.48 H ABG pH (Temp Correct) 7.50 H ABG pCO2 at Pt Temp 29 L ABG pCO2 (Temp Corrct 28 L ABG pO2 at Pt Temp 70 L ABG pO2 (Temp Correct 66 L ABG HCO3 22 ABG Base Excess (Actual) 0.2 VBG pH VBG pCO2 VBG pO2 VBG HCO3 VBG O2 Saturation VBG Base Excess Sodium Potassium Chloride Carbon Dioxide Anion Gap BUN Creatinine Estim Creat Clear Calc Estimated GFR POC Glucose 333 H 259 H Random Glucose Calcium Phosphorus Magnesium Ferritin Lactate Dehydrogenase 12/03/20 12/03/20 12/04/20 20:47 23:46 05:28 WBC RBC Hgb Hct MCV MCH MCHC RDW Plt Count MPV Immature Gran % (Auto) Neut % (Auto) Lymph % (Auto) [place] % (Auto) Eos % (Auto) Baso % (Auto) Lymph # (Auto) [place] # (Auto) Eos # (Auto) Baso # (Auto) Abs Immat Gran (auto) Absolute Neuts (auto) Absolute Nucleated RBC Nucleated RBC % (auto) PT INR APTT D-Dimer O2 Saturation ABG pH at Pt Temp ABG pH (Temp Correct) ABG pCO2 at Pt Temp ABG pCO2 (Temp Corrct ABG pO2 at Pt Temp ABG pO2 (Temp Correct ABG HCO3 ABG Base Excess (Actual) VBG pH 7.44 H VBG pCO2 32 VBG pO2 54 VBG HCO3 22 VBG O2 Saturation 83.0 VBG Base Excess -1.0 Sodium Potassium Chloride Carbon Dioxide Anion Gap BUN Creatinine Estim Creat Clear Calc Estimated GFR POC Glucose 304 H 291 H Random Glucose Calcium Phosphorus Magnesium Ferritin Lactate Dehydrogenase 12/04/20 12/04/20 12/04/20 05:30 05:30 05:30 WBC 11.1 H RBC 4.50 L Hgb 12.5 L Hct 39.0 L MCV 86.7 MCH 27.8 MCHC 32.1 RDW 14.3 Plt Count 250 MPV 10.6 Immature Gran % (Auto) 1.4 H Neut % (Auto) 86.7 H Lymph % (Auto) 7.7 L [place] % (Auto) 4.1 Eos % (Auto) 0.0 Baso % (Auto) 0.1 Lymph # (Auto) 0.9 L [place] # (Auto) 0.5 Eos # (Auto) 0.0 Baso # (Auto) 0.0 Abs Immat Gran (auto) 0.15 H Absolute Neuts (auto) 9.6 H Absolute Nucleated RBC 0.020 H Nucleated RBC % (auto) 0.2 PT 14.1 H INR 1.2 H APTT 25.2 D-Dimer 39424 O2 Saturation ABG pH at Pt Temp ABG pH (Temp Correct) ABG pCO2 at Pt Temp ABG pCO2 (Temp Corrct ABG pO2 at Pt Temp ABG pO2 (Temp Correct ABG HCO3 ABG Base Excess (Actual) VBG pH VBG pCO2 VBG pO2 VBG HCO3 VBG O2 Saturation VBG Base Excess Sodium 136 Potassium 4.8 Chloride 104 Carbon Dioxide 20 L Anion Gap 17 BUN 36 H Creatinine 0.78 Estim Creat Clear Calc 91.7 Estimated GFR > 60 POC Glucose Random Glucose 329 H Calcium 7.8 L Phosphorus 2.6 L Magnesium 2.7 H Ferritin 1099 H Lactate Dehydrogenase 488 H 12/04/20 12/04/20 12/04/20 05:53 07:14 08:05 WBC RBC Hgb Hct MCV MCH MCHC RDW Plt Count MPV Immature Gran % (Auto) Neut % (Auto) Lymph % (Auto) [place] % (Auto) Eos % (Auto) Baso % (Auto) Lymph # (Auto) [place] # (Auto) Eos # (Auto) Baso # (Auto) Abs Immat Gran (auto) Absolute Neuts (auto) Absolute Nucleated RBC Nucleated RBC % (auto) PT INR APTT D-Dimer O2 Saturation ABG pH at Pt Temp ABG pH (Temp Correct) ABG pCO2 at Pt Temp ABG pCO2 (Temp Corrct ABG pO2 at Pt Temp ABG pO2 (Temp Correct ABG HCO3 ABG Base Excess (Actual) VBG pH VBG pCO2 VBG pO2 VBG HCO3 VBG O2 Saturation VBG Base Excess Sodium Potassium Chloride Carbon Dioxide Anion Gap BUN Creatinine Estim Creat Clear Calc Estimated GFR POC Glucose 331 H 339 H 318 H Random Glucose Calcium Phosphorus Magnesium Ferritin Lactate Dehydrogenase Microbiology Microbiology Results: Microbiology 12/01/20 15:31 Blood - Venous Blood Culture - Preliminary No growth after 48 hours. 12/01/20 15:34 Blood - Venous Blood Culture - Preliminary No growth after 48 hours. Progress Note: A&P Assessment and plan (1) ARDS (adult respiratory distress syndrome): Status: Acute (2) Sepsis: Status: Acute (3) Constipation: Status: Acute (4) Acute respiratory failure with hypoxia: Status: Acute (5) Pneumonia due to COVID-19 virus: Status: Acute (6) Hypoxia: Status: Acute (7) Diabetes mellitus: Status: Acute (8) Chronic GERD: Problem details: cont same meds; 15 min on telephone Status: Acute Assessment and Plan: Plan and maintain ventilator support continued surveillance for superinfection continued use p.r.n. of rocuronium and to enable us to maintain low tidal volume ventilation Time Spent With Patient Time: Total time spent is greater than 50% in coordination of care (as documented) at patient's floor/unit and/or counseling patient: Total time spent with greater than 50% in coordination of care (as documented) at patient's floor/unit and/or counseling patient:: 35
[2020-12-04] MEDS: Heparin Sodium,Porcine 5,000 UNIT/ML VIAL 5000 UNIT SUBCUT ×2 (09:10→21:04)
[2020-12-04 09:25] LABS: Glucose, Whole Blood 320 mg/dL (60-115)
[2020-12-04 10:07] LABS: Glucose, Whole Blood 313 mg/dL (60-115)
--- NOTE | 2020-12-04 10:11 | MHC.CM.PN ---
Pt now in ICU on ventilatory support d/t COVID +. Per discussion with ICU care team, pt will require ICU LOC and has a long recovery Initial d/c plans supported a return to home with family support. CM to follow for finalization of d/c needs.
--- NOTE | 2020-12-04 10:12 | HE.PHANOTE ---
Addendum entered by Chelsi Nye [facility] 12/04/20 10:40: A maintenance dosing regimen of 1g IV q12h is predicted to generate an AUC of 483 mg/L-hr. Jane Nye, PharmD, BCPS, BCCCP [phone] Original Note: Vancomycin Note Patient is a 70 y/o male with vancomycin initiated for bacteremia with 2/2 blood cultures with preliminary results of Gram positive cocci to cover potential MRSA infection. Obesity status: 139 % of IBW with an adjusted body weight of 73.6 kg. Renal status: His geriatric est CrCl is ~71 mL/min using his adjusted body weight. Initial loading dose calculation: Using adjusted body weight with loading dose of 20 mg/kg for an initial dose of 1,500 mg vancomycin. Subsequent dosing regimen will be determined using Hobby using AUC dosing.
[2020-12-04] MEDS: vancomycin HCL 1,500 MG in 0.9 % Sodium Chloride 500 ML 333.33 MG IV (10:41)
[2020-12-04 11:35] LABS: Glucose, Whole Blood 292 mg/dL (60-115)
--- NOTE | 2020-12-04 11:35 | MHC.CLN ---
PT INTUBATED AND SEDATED PT RECEIVING GLUCERNA AT MAX GOAL RATE 50CC/HR WITH 240CC FREE WATER FLUSHES Q 6HRS PROVIDES 1200KCALS (1760KCALS WITH SEDATION; 24KCALS/KG), 50G PROTEIN (.7G/KG), 1984CC TOTAL WATER FROM FORMULA AND FLUSHES RECOMMEND ADDING 30ML PROSOURCE TID TO INCREASE PO PROTEIN 95G (1.3G/KG R/T COVID) MONITOR TOLERANCE, RESIDUALS AND LYTES
[2020-12-04 12:04] LABS: Glucose, Whole Blood 294 mg/dL (60-115)
[2020-12-04 13:24] LABS: Glucose, Whole Blood 289 mg/dL (60-115)
[2020-12-04 13:35] LABS: MRSA Nasal PCR NEGATIVE (Negative); SA Nasal PCR NEGATIVE (Negative)
--- NOTE | 2020-12-04 14:30 | PC.NURSE ---
Pt intubated/sedated #8 ET tube 24lip, vent settings AC 20, TV 550, FiO2 60%, PEEP 12, min vol ranging 11-15L/min, SaO2 93-97%. Pt intermittently hyperventilating with occasional SaO2 decrease, rocuronium given x3 PRN for vent asynchrony. Lung sounds dim all lobes. NSR 60-80,BP low of 89/52, vasopressin started at 0.01u/hr, MAP has been >65mmHg. No edema, CVP 7-8. Cuff leak noted with decreased in TV, 1ml air added with return of proper TV. Blood cultures positive for G+ cocci x2 sets, started on vancomycin, one dose given 1.5G temp 99.5. Son updated. Skin intact. Bed locked and in lowest position, HOB semi agarwal. Tolerating glucerna at 50ml/hr with supplement, 5ml residuals. Abdomen round/distended hypoactive bowel sounds. No BM today.
--- NOTE | 2020-12-04 15:08 | P.PNID_ITS ---
Subjective Subjective Date of Service: 12/04/20 Interval History: he is vented due to hypoxia new blood cultures gram positive cocci chains Objective Data Labs CBC & Chem 7: 12/08/20 05:45 12/08/20 18:18 Labs: Laboratory Results - last 24 hr 12/03/20 12/03/20 12/03/20 15:57 20:47 23:46 WBC RBC Hgb Hct MCV MCH MCHC RDW Plt Count MPV Immature Gran % (Auto) Neut % (Auto) Lymph % (Auto) [place] % (Auto) Eos % (Auto) Baso % (Auto) Lymph # (Auto) [place] # (Auto) Eos # (Auto) Baso # (Auto) Abs Immat Gran (auto) Absolute Neuts (auto) Absolute Nucleated RBC Nucleated RBC % (auto) PT INR APTT D-Dimer VBG pH VBG pCO2 VBG pO2 VBG HCO3 VBG O2 Saturation VBG Base Excess Sodium Potassium Chloride Carbon Dioxide Anion Gap BUN Creatinine Estim Creat Clear Calc Estimated GFR POC Glucose 259 H 304 H 291 H Random Glucose Calcium Phosphorus Magnesium Ferritin Lactate Dehydrogenase Nasal Screen MRSA (PCR) Nasal S. aureus Screen Nasal MRSA/S.aureus Interp 12/04/20 12/04/20 12/04/20 05:28 05:30 05:30 WBC 11.1 H RBC 4.50 L Hgb 12.5 L Hct 39.0 L MCV 86.7 MCH 27.8 MCHC 32.1 RDW 14.3 Plt Count 250 MPV 10.6 Immature Gran % (Auto) 1.4 H Neut % (Auto) 86.7 H Lymph % (Auto) 7.[address] [place] % (Auto) 4.1 Eos % (Auto) 0.0 Baso % (Auto) 0.1 Lymph # (Auto) 0.[address] [place] # (Auto) 0.5 Eos # (Auto) 0.0 Baso # (Auto) 0.0 Abs Immat Gran (auto) 0.15 H Absolute Neuts (auto) 9.6 H Absolute Nucleated RBC 0.020 H Nucleated RBC % (auto) 0.2 PT 14.1 H INR 1.2 H APTT 25.2 D-Dimer 21302 VBG pH 7.44 H VBG pCO2 32 VBG pO2 54 VBG HCO3 22 VBG O2 Saturation 83.0 VBG Base Excess -1.0 Sodium Potassium Chloride Carbon Dioxide Anion Gap BUN Creatinine Estim Creat Clear Calc Estimated GFR POC Glucose Random Glucose Calcium Phosphorus Magnesium Ferritin Lactate Dehydrogenase Nasal Screen MRSA (PCR) Nasal S. aureus Screen Nasal MRSA/S.aureus Interp 12/04/20 12/04/20 12/04/20 05:30 05:53 07:14 WBC RBC Hgb Hct MCV MCH MCHC RDW Plt Count MPV Immature Gran % (Auto) Neut % (Auto) Lymph % (Auto) [place] % (Auto) Eos % (Auto) Baso % (Auto) Lymph # (Auto) [place] # (Auto) Eos # (Auto) Baso # (Auto) Abs Immat Gran (auto) Absolute Neuts (auto) Absolute Nucleated RBC Nucleated RBC % (auto) PT INR APTT D-Dimer VBG pH VBG pCO2 VBG pO2 VBG HCO3 VBG O2 Saturation VBG Base Excess Sodium 136 Potassium 4.8 Chloride 104 Carbon Dioxide 20 L Anion Gap 17 BUN 36 H Creatinine 0.78 Estim Creat Clear Calc 91.7 Estimated GFR > 60 POC Glucose 331 H 339 H Random Glucose 329 H Calcium 7.8 L Phosphorus 2.6 L Magnesium 2.7 H Ferritin 1099 H Lactate Dehydrogenase 488 H Nasal Screen MRSA (PCR) Nasal S. aureus Screen Nasal MRSA/S.aureus Interp 12/04/20 12/04/20 12/04/20 08:05 09:08 10:01 WBC RBC Hgb Hct MCV MCH MCHC RDW Plt Count MPV Immature Gran % (Auto) Neut % (Auto) Lymph % (Auto) [place] % (Auto) Eos % (Auto) Baso % (Auto) Lymph # (Auto) [place] # (Auto) Eos # (Auto) Baso # (Auto) Abs Immat Gran (auto) Absolute Neuts (auto) Absolute Nucleated RBC Nucleated RBC % (auto) PT INR APTT D-Dimer VBG pH VBG pCO2 VBG pO2 VBG HCO3 VBG O2 Saturation VBG Base Excess Sodium Potassium Chloride Carbon Dioxide Anion Gap BUN Creatinine Estim Creat Clear Calc Estimated GFR POC Glucose 318 H 320 H 313 H Random Glucose Calcium Phosphorus Magnesium Ferritin Lactate Dehydrogenase Nasal Screen MRSA (PCR) Nasal S. aureus Screen Nasal MRSA/S.aureus Interp 12/04/20 12/04/20 12/04/20 11:00 11:47 11:57 WBC RBC Hgb Hct MCV MCH MCHC RDW Plt Count MPV Immature Gran % (Auto) Neut % (Auto) Lymph % (Auto) [place] % (Auto) Eos % (Auto) Baso % (Auto) Lymph # (Auto) [place] # (Auto) Eos # (Auto) Baso # (Auto) Abs Immat Gran (auto) Absolute Neuts (auto) Absolute Nucleated RBC Nucleated RBC % (auto) PT INR APTT D-Dimer VBG pH VBG pCO2 VBG pO2 VBG HCO3 VBG O2 Saturation VBG Base Excess Sodium Potassium Chloride Carbon Dioxide Anion Gap BUN Creatinine Estim Creat Clear Calc Estimated GFR POC Glucose 292 H 294 H Random Glucose Calcium Phosphorus Magnesium Ferritin Lactate Dehydrogenase Nasal Screen MRSA (PCR) NEGATIVE Nasal S. aureus Screen NEGATIVE Nasal MRSA/S.aureus Interp SEE NOTE 12/04/20 13:16 WBC RBC Hgb Hct MCV MCH MCHC RDW Plt Count MPV Immature Gran % (Auto) Neut % (Auto) Lymph % (Auto) [place] % (Auto) Eos % (Auto) Baso % (Auto) Lymph # (Auto) [place] # (Auto) Eos # (Auto) Baso # (Auto) Abs Immat Gran (auto) Absolute Neuts (auto) Absolute Nucleated RBC Nucleated RBC % (auto) PT INR APTT D-Dimer VBG pH VBG pCO2 VBG pO2 VBG HCO3 VBG O2 Saturation VBG Base Excess Sodium Potassium Chloride Carbon Dioxide Anion Gap BUN Creatinine Estim Creat Clear Calc Estimated GFR POC Glucose 289 H Random Glucose Calcium Phosphorus Magnesium Ferritin Lactate Dehydrogenase Nasal Screen MRSA (PCR) Nasal S. aureus Screen Nasal MRSA/S.aureus Interp Microbiology Microbiology Results: Microbiology 12/03/20 15:28 Sputum - Suctioned Gram Stain - Final 12/03/20 15:28 Sputum - Suctioned Sputum Culture - Preliminary Culture in progress. 12/03/20 15:22 Blood - Central Line Blood Culture - Preliminary 12/03/20 15:22 Blood - Central Line Blood Culture - Preliminary 12/01/20 15:31 Blood - Venous Blood Culture - Preliminary No growth after 48 hours. 12/01/20 15:34 Blood - Venous Blood Culture - Preliminary No growth after 48 hours. Physical Exam Vital Signs: Vital Signs: Last Vital Signs Temp 99.7 F 12/04/20 14:56 Pulse 73 12/04/20 14:56 Resp 20 12/04/20 14:56 BP 130/77 12/04/20 14:56 Pulse Ox 98 12/04/20 14:56 Body Mass Index 31.4 Const: General: cooperative HENMT: Head: Yes normal to inspection Mouth: Normal oral and palatal mucosa present Resp: Effort & Inspection: normal respiratory effort Cardio: Rate: regular rate Rhythm: regular rhythm GI: Palpation (GI): Soft to palpation and nontender Skin: General skin exam: no rashes or lesions noted Neuro: General: no focal motor deficits Assessment and Plan Assessment and plan (1) ARDS (adult respiratory distress syndrome): Problem details: He is post acute phase COVID Probably bacteremia due to secondary superinfection post COVID or pneumonia or endocarditis Status: Acute (2) Bacteremia due to Gram-positive bacteria: Problem details: contaminant Status: Acute Assessment and Plan: Would continue Vancomycin,day 1 Would check nares MRSA Await blood culture Time Spent With Patient Time: Total time spent is greater than 50% in coordination of care (as documented) at patient's floor/unit and/or counseling patient: Time with patient: 15 - 24 minutes
[2020-12-04 15:18] LABS: Glucose, Whole Blood 255 mg/dL (60-115)
[2020-12-04 15:19] LABS: Glucose, Whole Blood 241 mg/dL (60-115)
[2020-12-04 16:03] LABS: Glucose, Whole Blood 227 mg/dL (60-115)
[2020-12-04 17:26] LABS: Glucose, Whole Blood 225 mg/dL (60-115)
[2020-12-04] MEDS: Insulin Regular/NS 100 UNIT/100 ML PLAST..BAG 8 UNIT IVCONT (17:38)
[2020-12-04 18:38] LABS: Glucose, Whole Blood 215 mg/dL (60-115)
[2020-12-04 19:18] LABS: Glucose, Whole Blood 232 mg/dL (60-115)
[2020-12-04] MEDS: vancomycin HCL 1,000 MG in 0.9 % Sodium Chloride 250 ML 270 MG IV (19:35)
[2020-12-04 20:16] LABS: Glucose, Whole Blood 209 mg/dL (60-115)
[2020-12-04] MEDS: propofoL 1,000 MG/100 ML VIAL 26.52 MG IVCONT (21:03)
[2020-12-04 22:19] LABS: Glucose, Whole Blood 172 mg/dL (60-115)
[2020-12-04 22:19] LABS: Glucose, Whole Blood 159 mg/dL (60-115)
[2020-12-05] VITALS (28 sets, daily range): BP systolic 96–132; BP diastolic 25–79; PULSE 63–83; RESP 17–37; TEMP 37.5–38.1; O2SAT 91–100
[2020-12-05 00:11] LABS: Glucose, Whole Blood 165 mg/dL (60-115)
[2020-12-05 00:11] LABS: Glucose, Whole Blood 175 mg/dL (60-115)
[2020-12-05] MEDS: propofoL 1,000 MG/100 ML VIAL 26.52 MG IVCONT ×7 (00:35→21:14)
[2020-12-05 01:01] LABS: Glucose, Whole Blood 141 mg/dL (60-115)
[2020-12-05 01:59] LABS: Glucose, Whole Blood 154 mg/dL (60-115)
[2020-12-05 02:56] LABS: Glucose, Whole Blood 141 mg/dL (60-115)
[2020-12-05] MEDS: 0.9 % Sodium Chloride 1,000 ML 75 ML IVCONT (05:03)
[2020-12-05 05:17] LABS: Glucose, Whole Blood 134 mg/dL (60-115)
[2020-12-05 05:17] LABS: Glucose, Whole Blood 139 mg/dL (60-115)
[2020-12-05 05:23] LABS: VBG Base Excess -0.4 mmol/L; VBG HCO3 23 mmol/L (22-26); VBG pCO2 33 mmHg; VBG pH 7.44 (7.32-7.43); VBG pO2 58 mmHg
[2020-12-05 05:24] LABS: Basophils Percent Auto 0.1 % (0-2); Eosinophils Percent Auto 0.1 % (0-4); Hematocrit 36.2 % (42-52); Hemoglobin 11.3 g/dl (14.0-18.0); Imm Gran Abs Auto 0.35 X10*3/uL (0.00-0.03); Imm Gran Pct Auto 3.8 % (0.0-0.4); Lymphocytes Absolute Auto 0.9 X10*3/uL (1.2-4.9); Lymphocytes Percent Auto 10.2 % (20-40); MANUAL DIFF FLAG SCAN; Mean Corpuscular HGB Conc 31.2 g/dl (31.0-36.0); Mean Corpuscular Hemoglobin 27.8 pg (27.0-33.0); Mean Corpuscular Volume 88.9 fL (80-98); Mean Platelet Volume 10.5 fL (9.4-12.4); Monocytes Absolute Auto 0.3 X10*3/uL (0.1-1.2); Monocytes Percent Auto 3.7 % (2-11); Neutrophils Absolute Auto 7.6 X10*3/uL (2.0-8.3); Neutrophils Percent Auto 82.1 % (45-73); Platelet Count 195 X10*3/uL (160-400); Red Blood Count 4.07 X10*6/uL (4.60-5.80); Red Cell Distribution Width 14.5 % (11.0-16.0); SCAN SMEAR FLAG 1; White Blood Count 9.2 X10*3/uL (4.8-10.8)
[2020-12-05 05:28] LABS: Venous Blood Gas Refer to POC result
[2020-12-05 05:33] LABS: INTERNATIONAL NORM RATIO 1.2 (0.9-1.1); Prothrombin Time 13.8 SEC (10.8-13.0)
[2020-12-05 05:36] LABS: Partial Thromboplastin Time 25.9 SEC (24.1-38.0)
[2020-12-05 05:54] LABS: Anion Gap 16 (12-20); Blood Urea Nitrogen 34 mg/dL (9-16); Calcium 8.1 mg/dL (8.4-10.2); Carbon Dioxide 21 mmol/L (22-29); Chloride 110 mmol/L (96-108); Creatinine Clr Calc Pharmacy 110.1; Estimated Glomerular Filt Rate > 60; Glucose Random 136 mg/dL (60-115); Lactate Dehydrogenase 391 U/L (118-273); Magnesium 2.3 mg/dL (1.6-2.6); Phosphorus 3.2 mg/dL (2.7-4.5); Potassium 4.5 mmol/L (3.3-5.1); Sodium 142 mmol/L (135-145)
[2020-12-05 06:16] LABS: Ferritin 536 ng/mL (20-250)
--- NOTE | 2020-12-05 06:27 | PC.NURSE ---
TMAX 100.2 CORE. NSR ON TELE, HR 60-70s. SBP 90-100s, MAP > 65. PT SEDATED ON PROPOFOL, RESPONDS TO NOXIOUS STIMULI, REACHES TOWARD ETT. PRN IVP ROCURONIUM GIVEN X1 FOR VENT SYNCHRONY. ETT #8, 24 CM ELI. CURRENTLY ON AC/VC 20/550/60%/12+. RR 20-30, SpO2 > 92%. MINIMAL ORAL SECRETIONS, SCANT INLINE. +COUGH/GAG. GLUCERNA TF @ 40 ML/HR, 10 ML RESIDUAL. INSULIN GTT RUNNING PER PROTOCOL, SEE DRUG TITRATION. ADAMS IN PLACE, UOP 50-100 ML/HR. SKIN INTACT. REPOSITIONED Q2H. ON AIR LOSS BED/MATTRESS. SON CALLED/UPDATED.
[2020-12-05 06:30] LABS: D Dimer 23115 NG/ML
[2020-12-05 06:45] LABS: SLIDE REVIEW VERIFIED
[2020-12-05] MEDS: dexAMETHasone sod phosphate 4 MG/ML VIAL 6 MG IVPUSH (07:30)
[2020-12-05] MEDS: Milk of Magnesia 30 ML ORAL.SUSP PO (07:30)
[2020-12-05] MEDS: vancomycin HCL 1,000 MG in 0.9 % Sodium Chloride 250 ML 270 MG IV (07:30)
[2020-12-05] MEDS: Chlorhexidine Gluc Oral Rinse 15 ML MOUTHWASH BUCCAL ×3 (07:30→19:49)
[2020-12-05] MEDS: 0.9 % Sodium Chloride Flush 3 ML SYRINGE IVFLUSH ×5 (07:31→21:15)
[2020-12-05 08:04] LABS: Glucose, Whole Blood 119 mg/dL (60-115)
[2020-12-05 08:30] LABS: Glucose, Whole Blood 127 mg/dL (60-115)
[2020-12-05] MEDS: Enoxaparin Sodium 100 MG/ML SYRINGE 90 MG SUBCUT ×2 (09:55→19:49)
[2020-12-05] MEDS: Insulin Regular/NS 100 UNIT/100 ML PLAST..BAG IVCONT ×2 (09:56→16:17)
[2020-12-05 10:11] LABS: Glucose, Whole Blood 136 mg/dL (60-115)
[2020-12-05] MEDS: Rocuronium Bromide 50 MG/5 ML VIAL IVPUSH (10:24)
[2020-12-05 11:03] LABS: Glucose, Whole Blood 136 mg/dL (60-115)
--- NOTE | 2020-12-05 11:32 | P.PNCC_ITS ---
Subjective Subjective Date of Service: 12/05/20 Interval History: 70-year-old presented with bilateral COVID-19 pneumonitis and ARDS and intubated and on vancomycin because blood cultures were growing Gram- positive cocci still awaiting definition of the organism has stable renal function hematologically stable but had a dramatic increase in all of markers of inflammation including D-dimer and was empirically placed on full-dose Lovenox Physical Exam Vital Signs: Vital Signs: Last Vital Signs Temp 100.6 F H 12/05/20 10:54 Pulse 80 12/05/20 10:54 Resp 20 12/05/20 10:54 BP 132/74 12/05/20 10:54 Pulse Ox 94 12/05/20 10:54 Body Mass Index 31.4 Const: Other: He is sedated and intubated Skin is intact with no peripheral edema no livedo no wounds Cardiac exam no gallops or murmurs Abdomen benign and tolerating feedings no organomegaly Chest with bilateral coarse ventilatory sounds Objective Data Labs CBC & Chem 7: 12/05/20 05:07 12/05/20 05:07 Labs: Laboratory Results - last 24 hr 12/04/20 12/04/20 12/04/20 11:00 11:47 11:57 WBC RBC Hgb Hct MCV MCH MCHC RDW Plt Count MPV Immature Gran % (Auto) Neut % (Auto) Lymph % (Auto) [place] % (Auto) Eos % (Auto) Baso % (Auto) Lymph # (Auto) [place] # (Auto) Eos # (Auto) Baso # (Auto) Abs Immat Gran (auto) Absolute Neuts (auto) Absolute Nucleated RBC Nucleated RBC % (auto) Smear Tech's Comments PT INR APTT D-Dimer VBG pH VBG pCO2 VBG pO2 VBG HCO3 VBG O2 Saturation VBG Base Excess Sodium Potassium Chloride Carbon Dioxide Anion Gap BUN Creatinine Estim Creat Clear Calc Estimated GFR POC Glucose 292 H 294 H Random Glucose Calcium Phosphorus Magnesium Ferritin Lactate Dehydrogenase Nasal Screen MRSA (PCR) NEGATIVE Nasal S. aureus Screen NEGATIVE Nasal MRSA/S.aureus Interp SEE NOTE 12/04/20 12/04/20 12/04/20 13:16 14:04 15:05 WBC RBC Hgb Hct MCV MCH MCHC RDW Plt Count MPV Immature Gran % (Auto) Neut % (Auto) Lymph % (Auto) [place] % (Auto) Eos % (Auto) Baso % (Auto) Lymph # (Auto) [place] # (Auto) Eos # (Auto) Baso # (Auto) Abs Immat Gran (auto) Absolute Neuts (auto) Absolute Nucleated RBC Nucleated RBC % (auto) Smear Tech's Comments PT INR APTT D-Dimer VBG pH VBG pCO2 VBG pO2 VBG HCO3 VBG O2 Saturation VBG Base Excess Sodium Potassium Chloride Carbon Dioxide Anion Gap BUN Creatinine Estim Creat Clear Calc Estimated GFR POC Glucose 289 H 241 H 255 H Random Glucose Calcium Phosphorus Magnesium Ferritin Lactate Dehydrogenase Nasal Screen MRSA (PCR) Nasal S. aureus Screen Nasal MRSA/S.aureus Interp 12/04/20 12/04/20 12/04/20 15:56 17:04 18:15 WBC RBC Hgb Hct MCV MCH MCHC RDW Plt Count MPV Immature Gran % (Auto) Neut % (Auto) Lymph % (Auto) [place] % (Auto) Eos % (Auto) Baso % (Auto) Lymph # (Auto) [place] # (Auto) Eos # (Auto) Baso # (Auto) Abs Immat Gran (auto) Absolute Neuts (auto) Absolute Nucleated RBC Nucleated RBC % (auto) Smear Tech's Comments PT INR APTT D-Dimer VBG pH VBG pCO2 VBG pO2 VBG HCO3 VBG O2 Saturation VBG Base Excess Sodium Potassium Chloride Carbon Dioxide Anion Gap BUN Creatinine Estim Creat Clear Calc Estimated GFR POC Glucose 227 H 225 H 215 H Random Glucose Calcium Phosphorus Magnesium Ferritin Lactate Dehydrogenase Nasal Screen MRSA (PCR) Nasal S. aureus Screen Nasal MRSA/S.aureus Interp 12/04/20 12/04/20 12/04/20 18:57 20:01 21:10 WBC RBC Hgb Hct MCV MCH MCHC RDW Plt Count MPV Immature Gran % (Auto) Neut % (Auto) Lymph % (Auto) [place] % (Auto) Eos % (Auto) Baso % (Auto) Lymph # (Auto) [place] # (Auto) Eos # (Auto) Baso # (Auto) Abs Immat Gran (auto) Absolute Neuts (auto) Absolute Nucleated RBC Nucleated RBC % (auto) Smear Tech's Comments PT INR APTT D-Dimer VBG pH VBG pCO2 VBG pO2 VBG HCO3 VBG O2 Saturation VBG Base Excess Sodium Potassium Chloride Carbon Dioxide Anion Gap BUN Creatinine Estim Creat Clear Calc Estimated GFR POC Glucose 232 H 209 H 159 H Random Glucose Calcium Phosphorus Magnesium Ferritin Lactate Dehydrogenase Nasal Screen MRSA (PCR) Nasal S. aureus Screen Nasal MRSA/S.aureus Interp 12/04/20 12/04/20 12/04/20 22:14 22:59 23:59 WBC RBC Hgb Hct MCV MCH MCHC RDW Plt Count MPV Immature Gran % (Auto) Neut % (Auto) Lymph % (Auto) [place] % (Auto) Eos % (Auto) Baso % (Auto) Lymph # (Auto) [place] # (Auto) Eos # (Auto) Baso # (Auto) Abs Immat Gran (auto) Absolute Neuts (auto) Absolute Nucleated RBC Nucleated RBC % (auto) Smear Tech's Comments PT INR APTT D-Dimer VBG pH VBG pCO2 VBG pO2 VBG HCO3 VBG O2 Saturation VBG Base Excess Sodium Potassium Chloride Carbon Dioxide Anion Gap BUN Creatinine Estim Creat Clear Calc Estimated GFR POC Glucose 172 H 175 H 165 H Random Glucose Calcium Phosphorus Magnesium Ferritin Lactate Dehydrogenase Nasal Screen MRSA (PCR) Nasal S. aureus Screen Nasal MRSA/S.aureus Interp 12/05/20 12/05/20 12/05/20 00:54 01:54 02:51 WBC RBC Hgb Hct MCV MCH MCHC RDW Plt Count MPV Immature Gran % (Auto) Neut % (Auto) Lymph % (Auto) [place] % (Auto) Eos % (Auto) Baso % (Auto) Lymph # (Auto) [place] # (Auto) Eos # (Auto) Baso # (Auto) Abs Immat Gran (auto) Absolute Neuts (auto) Absolute Nucleated RBC Nucleated RBC % (auto) Smear Tech's Comments PT INR APTT D-Dimer VBG pH VBG pCO2 VBG pO2 VBG HCO3 VBG O2 Saturation VBG Base Excess Sodium Potassium Chloride Carbon Dioxide Anion Gap BUN Creatinine Estim Creat Clear Calc Estimated GFR POC Glucose 141 H 154 H 141 H Random Glucose Calcium Phosphorus Magnesium Ferritin Lactate Dehydrogenase Nasal Screen MRSA (PCR) Nasal S. aureus Screen Nasal MRSA/S.aureus Interp 12/05/20 12/05/20 12/05/20 04:17 05:05 05:07 WBC 9.2 RBC 4.07 L Hgb 11.3 L Hct 36.2 L MCV 88.9 MCH 27.8 MCHC 31.2 RDW 14.5 Plt Count 195 MPV 10.5 Immature Gran % (Auto) 3.8 H Neut % (Auto) 82.1 H Lymph % (Auto) 10.2 L [place] % (Auto) 3.7 Eos % (Auto) 0.1 Baso % (Auto) 0.1 Lymph # (Auto) 0.9 L [place] # (Auto) 0.3 Eos # (Auto) 0.0 Baso # (Auto) 0.0 Abs Immat Gran (auto) 0.35 H Absolute Neuts (auto) 7.6 Absolute Nucleated RBC 0.000 Nucleated RBC % (auto) 0.0 Smear Tech's Comments VERIFIED PT INR APTT D-Dimer VBG pH VBG pCO2 VBG pO2 VBG HCO3 VBG O2 Saturation VBG Base Excess Sodium Potassium Chloride Carbon Dioxide Anion Gap BUN Creatinine Estim Creat Clear Calc Estimated GFR POC Glucose 134 H 139 H Random Glucose Calcium Phosphorus Magnesium Ferritin Lactate Dehydrogenase Nasal Screen MRSA (PCR) Nasal S. aureus Screen Nasal MRSA/S.aureus Interp 12/05/20 12/05/20 12/05/20 05:07 05:07 05:17 WBC RBC Hgb Hct MCV MCH MCHC RDW Plt Count MPV Immature Gran % (Auto) Neut % (Auto) Lymph % (Auto) [place] % (Auto) Eos % (Auto) Baso % (Auto) Lymph # (Auto) [place] # (Auto) Eos # (Auto) Baso # (Auto) Abs Immat Gran (auto) Absolute Neuts (auto) Absolute Nucleated RBC Nucleated RBC % (auto) Smear Tech's Comments PT 13.8 H INR 1.2 H APTT 25.9 D-Dimer 50929 VBG pH 7.44 H VBG pCO2 33 VBG pO2 58 VBG HCO3 23 VBG O2 Saturation 87.0 VBG Base Excess -0.4 Sodium 142 Potassium 4.5 Chloride 110 H Carbon Dioxide 21 L Anion Gap 16 BUN 34 H Creatinine 0.65 Estim Creat Clear Calc 110.1 Estimated GFR > 60 POC Glucose Random Glucose 136 H D Calcium 8.1 L Phosphorus 3.2 Magnesium 2.3 Ferritin 536 H Lactate Dehydrogenase 391 H Nasal Screen MRSA (PCR) Nasal S. aureus Screen Nasal MRSA/S.aureus Interp 12/05/20 12/05/20 12/05/20 07:40 08:27 09:58 WBC RBC Hgb Hct MCV MCH MCHC RDW Plt Count MPV Immature Gran % (Auto) Neut % (Auto) Lymph % (Auto) [place] % (Auto) Eos % (Auto) Baso % (Auto) Lymph # (Auto) [place] # (Auto) Eos # (Auto) Baso # (Auto) Abs Immat Gran (auto) Absolute Neuts (auto) Absolute Nucleated RBC Nucleated RBC % (auto) Smear Tech's Comments PT INR APTT D-Dimer VBG pH VBG pCO2 VBG pO2 VBG HCO3 VBG O2 Saturation VBG Base Excess Sodium Potassium Chloride Carbon Dioxide Anion Gap BUN Creatinine Estim Creat Clear Calc Estimated GFR POC Glucose 119 H 127 H 136 H Random Glucose Calcium Phosphorus Magnesium Ferritin Lactate Dehydrogenase Nasal Screen MRSA (PCR) Nasal S. aureus Screen Nasal MRSA/S.aureus Interp 12/05/20 10:58 WBC RBC Hgb Hct MCV MCH MCHC RDW Plt Count MPV Immature Gran % (Auto) Neut % (Auto) Lymph % (Auto) [place] % (Auto) Eos % (Auto) Baso % (Auto) Lymph # (Auto) [place] # (Auto) Eos # (Auto) Baso # (Auto) Abs Immat Gran (auto) Absolute Neuts (auto) Absolute Nucleated RBC Nucleated RBC % (auto) Smear Tech's Comments PT INR APTT D-Dimer VBG pH VBG pCO2 VBG pO2 VBG HCO3 VBG O2 Saturation VBG Base Excess Sodium Potassium Chloride Carbon Dioxide Anion Gap BUN Creatinine Estim Creat Clear Calc Estimated GFR POC Glucose 136 H Random Glucose Calcium Phosphorus Magnesium Ferritin Lactate Dehydrogenase Nasal Screen MRSA (PCR) Nasal S. aureus Screen Nasal MRSA/S.aureus Interp Microbiology Microbiology Results: Microbiology 12/03/20 15:28 Sputum - Suctioned Gram Stain - Final 12/03/20 15:28 Sputum - Suctioned Sputum Culture - Final 12/03/20 15:22 Blood - Central Line Blood Culture - Preliminary 12/03/20 15:22 Blood - Central Line Blood Culture - Preliminary 12/01/20 15:31 Blood - Venous Blood Culture - Preliminary No growth after 48 hours. 12/01/20 15:34 Blood - Venous Blood Culture - Preliminary No growth after 48 hours. Progress Note: A&P Assessment and plan (1) Bacteremia due to Gram-positive bacteria: Problem details: Staph or strep superinfection Status: Acute (2) ARDS (adult respiratory distress syndrome): Problem details: He is post acute phase COVID Probably bacteremia due to secondary superinfection post COVID or pneumonia or endocarditis Status: Acute (3) Sepsis: Status: Acute (4) Acute respiratory failure with hypoxia: Status: Acute (5) Pneumonia due to COVID-19 virus: Status: Acute (6) Diabetes mellitus: Status: Acute (7) Chronic GERD: Problem details: cont same meds; 15 min on telephone Status: Acute Assessment and Plan: Stable for the moment and the meaning of the D-dimer at this point might be moot because item think will find a major thrombus and on a CT a of the chest so I feel that treating empirically based on known pathology from COVID-19 is is worthwhile The hyperchloremia probably iatrogenic and the saline was stopped and at this point will rely on feedings an oral flushes Time Spent With Patient Time: Total time spent is greater than 50% in coordination of care (as documented) at patient's floor/unit and/or counseling patient: Total time spent with greater than 50% in coordination of care (as documented) at patient's floor/unit and/or counseling patient:: 35
[2020-12-05 12:28] LABS: Glucose, Whole Blood 139 mg/dL (60-115)
[2020-12-05 14:05] LABS: Glucose, Whole Blood 135 mg/dL (60-115)
[2020-12-05 17:29] LABS: Glucose, Whole Blood 151 mg/dL (60-115)
[2020-12-05 18:41] LABS: Glucose, Whole Blood 123 mg/dL (60-115)
[2020-12-05] MEDS: vancomycin HCL 1,250 MG in 0.9 % Sodium Chloride 250 ML 166.67 MG IV (19:49)
[2020-12-05 20:25] LABS: Glucose, Whole Blood 110 mg/dL (60-115)
[2020-12-05 22:20] LABS: Glucose, Whole Blood 160 mg/dL (60-115)
[2020-12-06] VITALS (29 sets, daily range): BP systolic 96–133; BP diastolic 51–76; PULSE 68–94; RESP 20–33; TEMP 37–38.6; O2SAT 91–95
[2020-12-06 00:15] LABS: Glucose, Whole Blood 163 mg/dL (60-115)
[2020-12-06] MEDS: propofoL 1,000 MG/100 ML VIAL 26.52 MG IVCONT ×7 (00:50→22:21)
[2020-12-06 04:22] LABS: Glucose, Whole Blood 144 mg/dL (60-115)
[2020-12-06 04:22] LABS: Glucose, Whole Blood 133 mg/dL (60-115)
[2020-12-06 05:29] LABS: Venous Blood Gas Refer to POC result
[2020-12-06 05:30] LABS: VBG Base Excess 2.8 mmol/L; VBG HCO3 25 mmol/L (22-26); VBG pCO2 32 mmHg; VBG pH 7.49 (7.32-7.43); VBG pO2 56 mmHg
[2020-12-06 05:44] LABS: Hematocrit 36.9 % (42-52); Hemoglobin 11.6 g/dl (14.0-18.0); Mean Corpuscular HGB Conc 31.4 g/dl (31.0-36.0); Mean Corpuscular Hemoglobin 27.7 pg (27.0-33.0); Mean Corpuscular Volume 88.1 fL (80-98); Mean Platelet Volume 10.5 fL (9.4-12.4); NRBC Pct Auto 0.3 /100WBC (0.0-0.2); Platelet Count 213 X10*3/uL (160-400); Red Blood Count 4.19 X10*6/uL (4.60-5.80); Red Cell Distribution Width 14.5 % (11.0-16.0); White Blood Count 11.7 X10*3/uL (4.8-10.8)
[2020-12-06 05:54] LABS: INTERNATIONAL NORM RATIO 1.2 (0.9-1.1); Prothrombin Time 14.8 SEC (10.8-13.0)
[2020-12-06 05:56] LABS: Partial Thromboplastin Time 30.5 SEC (24.1-38.0)
[2020-12-06 05:57] LABS: Anion Gap 15 (12-20); Blood Urea Nitrogen 31 mg/dL (9-16); Calcium 7.8 mg/dL (8.4-10.2); Carbon Dioxide 23 mmol/L (22-29); Chloride 105 mmol/L (96-108); Creatinine Clr Calc Pharmacy 113.6; Estimated Glomerular Filt Rate > 60; Glucose Random 127 mg/dL (60-115); Lactate Dehydrogenase 385 U/L (118-273); Magnesium 2.2 mg/dL (1.6-2.6); Phosphorus 3.3 mg/dL (2.7-4.5); Potassium 4.4 mmol/L (3.3-5.1); Sodium 139 mmol/L (135-145)
[2020-12-06 06:20] LABS: Ferritin 525 ng/mL (20-250)
[2020-12-06 06:36] LABS: D Dimer 20255 NG/ML
[2020-12-06] MEDS: vancomycin HCL 1,250 MG in 0.9 % Sodium Chloride 250 ML 166.67 MG IV (07:43)
[2020-12-06] MEDS: Enoxaparin Sodium 100 MG/ML SYRINGE 90 MG SUBCUT ×2 (07:43→20:01)
[2020-12-06] MEDS: 0.9 % Sodium Chloride Flush 3 ML SYRINGE IVFLUSH ×5 (07:43→23:47)
[2020-12-06] MEDS: Chlorhexidine Gluc Oral Rinse 15 ML MOUTHWASH BUCCAL ×3 (07:44→20:03)
[2020-12-06] MEDS: dexAMETHasone sod phosphate 4 MG/ML VIAL 6 MG IVPUSH (07:44)
[2020-12-06] MEDS: Milk of Magnesia 30 ML ORAL.SUSP PO (07:44)
[2020-12-06 07:50] LABS: Atypical Lymph Absolute Manual 0.1 x10*3/uL; Atypical Lymphs Percent Manual 1 % (0-6); Band Neutrophils Percent 10 % (3-5); Lymphocytes Absolute Manual 2.5 X10*3/uL (0.6-4.8); Lymphocytes Percent Manual 21 % (20-40); Metamyelocytes Absolute 0.1 X10*3/uL; Metamyelocytes Percent 1 %; Monocytes Absolute Manual 0.4 X10*3/uL (0.0-1.2); Monocytes Percent Manual 3 % (2-11); Neutrophils Absolute Manual 8.7 X10*3/uL (2.2-7.9); Neutrophils Percent Manual 64 % (45-73)
[2020-12-06 07:51] LABS: RBC Morphology NOTED
[2020-12-06 07:52] LABS: Platelet Estimate NORMAL (NORMAL); Platelet Morphology Comment NORMAL; Smudge Cells PRESENT; Stomatocytes 1+ (5-14) /OIF
[2020-12-06] MEDS: Rocuronium Bromide 50 MG/5 ML VIAL IVPUSH ×4 (10:00→22:42)
[2020-12-06 10:42] LABS: Glucose, Whole Blood 149 mg/dL (60-115)
[2020-12-06 10:42] LABS: Glucose, Whole Blood 127 mg/dL (60-115)
[2020-12-06 10:42] LABS: Glucose, Whole Blood 220 mg/dL (60-115)
[2020-12-06 11:47] LABS: Glucose, Whole Blood 217 mg/dL (60-115)
--- NOTE | 2020-12-06 12:35 | P.PNCC_ITS ---
Subjective Subjective Date of Service: 12/06/20 Interval History: 70-year-old male with bilateral COVID-19 pneumonitis and ARDS and acute hypoxemic respiratory failure Underlying type 2 diabetic he he came in for respiratory support 10 days after initial diagnosis with worsening dyspnea and hypoxemia and 2 days later transfer downstairs for intubation CT scan today as we wean his FiO2 down to 40% showed extensive severe bilateral infiltration but interestingly there was very small pneumomediastinum and pneumothorax not requiring a chest tube as yet but it did lead to some adjustment of his ventilator support probably more aggressive use of the rocuronium this way we minimize is tidal volumes at about 500 cc which is just under 6 cc/kilos and with paralysis he has a peak airway pressure of 23 a peep of 5 and a driving pressure of only 18 with a very comfortable plateau pressure in no air trapping clinically currently heart rate 92 on propofol and 94% oxygen saturation pressure 120/66 Hand and his initial blood cultures when he presented here were positive for Gram-positive cocci and we still have not gotten the report on the species so he remains on vancomycin Physical Exam Vital Signs: Vital Signs: Last Vital Signs Temp 99.9 F 12/06/20 12:00 Pulse 94 12/06/20 12:00 Resp 20 12/06/20 12:00 BP 127/69 12/06/20 12:00 Pulse Ox 94 12/06/20 12:00 Body Mass Index 31.4 Const: Other: Sedated and intubated but capable of moving all strep mid ease w hen the rocuronium wears off Cardiac exam stable with normal sinus rhythm good bilateral carotid upstrokes no neck vein distension and no gallops no murmurs Lungs with coarse bilateral ventilatory sounds Abdomen distended but the still excepting feedings and is soft no guarding no tenderness Skin is intact no livedo Objective Data Labs CBC & Chem 7: 12/06/20 05:15 12/06/20 05:15 Labs: Laboratory Results - last 24 hr 12/05/20 12/05/20 12/05/20 13:57 16:21 18:07 WBC RBC Hgb Hct MCV MCH MCHC RDW Plt Count MPV Immature Gran % (Auto) Neut % (Auto) Lymph % (Auto) Woodruff % (Auto) Eos % (Auto) Baso % (Auto) Lymph # (Auto) Woodruff # (Auto) Eos # (Auto) Baso # (Auto) Abs Immat Gran (auto) Absolute Neuts (auto) Absolute Nucleated RBC Nucleated RBC % (auto) Neutrophils % (Manual) Band Neutrophils % Lymphocytes % (Manual) Atypical Lymphs % (Man) Monocytes % (Manual) Metamyelocytes % Abs Neuts (Manual) Lymphocytes # (Manual) Atyp Lymphs # (Manual) Monocytes # (Manual) Metamyelocytes # Smudge Cells Platelet Estimate Plt Morphology Comment RBC Morphology Stomatocytes PT INR APTT D-Dimer VBG pH VBG pCO2 VBG pO2 VBG HCO3 VBG O2 Saturation VBG Base Excess Sodium Potassium Chloride Carbon Dioxide Anion Gap BUN Creatinine Estim Creat Clear Calc Estimated GFR POC Glucose 135 H 151 H Random Glucose Calcium Phosphorus Magnesium Ferritin Lactate Dehydrogenase Vancomycin Trough 9.0 L 12/05/20 12/05/20 12/05/20 18:17 19:59 22:07 WBC RBC Hgb Hct MCV MCH MCHC RDW Plt Count MPV Immature Gran % (Auto) Neut % (Auto) Lymph % (Auto) Woodruff % (Auto) Eos % (Auto) Baso % (Auto) Lymph # (Auto) Woodruff # (Auto) Eos # (Auto) Baso # (Auto) Abs Immat Gran (auto) Absolute Neuts (auto) Absolute Nucleated RBC Nucleated RBC % (auto) Neutrophils % (Manual) Band Neutrophils % Lymphocytes % (Manual) Atypical Lymphs % (Man) Monocytes % (Manual) Metamyelocytes % Abs Neuts (Manual) Lymphocytes # (Manual) Atyp Lymphs # (Manual) Monocytes # (Manual) Metamyelocytes # Smudge Cells Platelet Estimate Plt Morphology Comment RBC Morphology Stomatocytes PT INR APTT D-Dimer VBG pH VBG pCO2 VBG pO2 VBG HCO3 VBG O2 Saturation VBG Base Excess Sodium Potassium Chloride Carbon Dioxide Anion Gap BUN Creatinine Estim Creat Clear Calc Estimated GFR POC Glucose 123 H 110 160 H Random Glucose Calcium Phosphorus Magnesium Ferritin Lactate Dehydrogenase Vancomycin Trough 12/06/20 12/06/20 12/06/20 00:07 02:02 04:10 WBC RBC Hgb Hct MCV MCH MCHC RDW Plt Count MPV Immature Gran % (Auto) Neut % (Auto) Lymph % (Auto) Woodruff % (Auto) Eos % (Auto) Baso % (Auto) Lymph # (Auto) Woodruff # (Auto) Eos # (Auto) Baso # (Auto) Abs Immat Gran (auto) Absolute Neuts (auto) Absolute Nucleated RBC Nucleated RBC % (auto) Neutrophils % (Manual) Band Neutrophils % Lymphocytes % (Manual) Atypical Lymphs % (Man) Monocytes % (Manual) Metamyelocytes % Abs Neuts (Manual) Lymphocytes # (Manual) Atyp Lymphs # (Manual) Monocytes # (Manual) Metamyelocytes # Smudge Cells Platelet Estimate Plt Morphology Comment RBC Morphology Stomatocytes PT INR APTT D-Dimer VBG pH VBG pCO2 VBG pO2 VBG HCO3 VBG O2 Saturation VBG Base Excess Sodium Potassium Chloride Carbon Dioxide Anion Gap BUN Creatinine Estim Creat Clear Calc Estimated GFR POC Glucose 163 H 144 H 133 H Random Glucose Calcium Phosphorus Magnesium Ferritin Lactate Dehydrogenase Vancomycin Trough 12/06/20 12/06/20 12/06/20 05:15 05:15 05:15 WBC 11.7 H RBC 4.19 L Hgb 11.6 L Hct 36.9 L MCV 88.1 MCH 27.7 MCHC 31.4 RDW 14.5 Plt Count 213 MPV 10.5 Immature Gran % (Auto) Cancelled Neut % (Auto) Cancelled Lymph % (Auto) Cancelled Woodruff % (Auto) Cancelled Eos % (Auto) Cancelled Baso % (Auto) Cancelled Lymph # (Auto) Cancelled Woodruff # (Auto) Cancelled Eos # (Auto) Cancelled Baso # (Auto) Cancelled Abs Immat Gran (auto) Cancelled Absolute Neuts (auto) Cancelled Absolute Nucleated RBC 0.030 H Nucleated RBC % (auto) 0.3 H Neutrophils % (Manual) 64 Band Neutrophils % 10 H Lymphocytes % (Manual) 21 Atypical Lymphs % (Man) 1 Monocytes % (Manual) 3 Metamyelocytes % 1 Abs Neuts (Manual) 8.7 H Lymphocytes # (Manual) 2.5 Atyp Lymphs # (Manual) 0.1 Monocytes # (Manual) 0.4 Metamyelocytes # 0.1 Smudge Cells PRESENT Platelet Estimate NORMAL Plt Morphology Comment NORMAL RBC Morphology NOTED Stomatocytes 1+ (5-14) PT 14.8 H INR 1.2 H APTT 30.5 D-Dimer 95622 VBG pH VBG pCO2 VBG pO2 VBG HCO3 VBG O2 Saturation VBG Base Excess Sodium 139 Potassium 4.4 Chloride 105 Carbon Dioxide 23 Anion Gap 15 BUN 31 H Creatinine 0.63 Estim Creat Clear Calc 113.6 Estimated GFR > 60 POC Glucose Random Glucose 127 H Calcium 7.8 L Phosphorus 3.3 Magnesium 2.2 Ferritin 525 H Lactate Dehydrogenase 385 H Vancomycin Trough 12/06/20 12/06/20 12/06/20 05:24 05:55 07:52 WBC RBC Hgb Hct MCV MCH MCHC RDW Plt Count MPV Immature Gran % (Auto) Neut % (Auto) Lymph % (Auto) Woodruff % (Auto) Eos % (Auto) Baso % (Auto) Lymph # (Auto) Woodruff # (Auto) Eos # (Auto) Baso # (Auto) Abs Immat Gran (auto) Absolute Neuts (auto) Absolute Nucleated RBC Nucleated RBC % (auto) Neutrophils % (Manual) Band Neutrophils % Lymphocytes % (Manual) Atypical Lymphs % (Man) Monocytes % (Manual) Metamyelocytes % Abs Neuts (Manual) Lymphocytes # (Manual) Atyp Lymphs # (Manual) Monocytes # (Manual) Metamyelocytes # Smudge Cells Platelet Estimate Plt Morphology Comment RBC Morphology Stomatocytes PT INR APTT D-Dimer VBG pH 7.49 H VBG pCO2 32 VBG pO2 56 VBG HCO3 25 VBG O2 Saturation 85.0 VBG Base Excess 2.8 Sodium Potassium Chloride Carbon Dioxide Anion Gap BUN Creatinine Estim Creat Clear Calc Estimated GFR POC Glucose 149 H 127 H Random Glucose Calcium Phosphorus Magnesium Ferritin Lactate Dehydrogenase Vancomycin Trough 12/06/20 12/06/20 10:03 11:41 WBC RBC Hgb Hct MCV MCH MCHC RDW Plt Count MPV Immature Gran % (Auto) Neut % (Auto) Lymph % (Auto) Woodruff % (Auto) Eos % (Auto) Baso % (Auto) Lymph # (Auto) Woodruff # (Auto) Eos # (Auto) Baso # (Auto) Abs Immat Gran (auto) Absolute Neuts (auto) Absolute Nucleated RBC Nucleated RBC % (auto) Neutrophils % (Manual) Band Neutrophils % Lymphocytes % (Manual) Atypical Lymphs % (Man) Monocytes % (Manual) Metamyelocytes % Abs Neuts (Manual) Lymphocytes # (Manual) Atyp Lymphs # (Manual) Monocytes # (Manual) Metamyelocytes # Smudge Cells Platelet Estimate Plt Morphology Comment RBC Morphology Stomatocytes PT INR APTT D-Dimer VBG pH VBG pCO2 VBG pO2 VBG HCO3 VBG O2 Saturation VBG Base Excess Sodium Potassium Chloride Carbon Dioxide Anion Gap BUN Creatinine Estim Creat Clear Calc Estimated GFR POC Glucose 220 H 217 H Random Glucose Calcium Phosphorus Magnesium Ferritin Lactate Dehydrogenase Vancomycin Trough Microbiology Microbiology Results: Microbiology 12/03/20 15:22 Blood - Central Line Blood Culture - Preliminary Staphylococcus species 12/03/20 15:22 Blood - Central Line Blood Culture - Preliminary Staphylococcus species 12/03/20 15:28 Sputum - Suctioned Gram Stain - Final 12/03/20 15:28 Sputum - Suctioned Sputum Culture - Final 12/01/20 15:31 Blood - Venous Blood Culture - Preliminary No growth after 48 hours. 12/01/20 15:34 Blood - Venous Blood Culture - Preliminary No growth after 48 hours. Progress Note: A&P Assessment and plan (1) Bacteremia due to Gram-positive bacteria: Problem details: Staph or strep superinfection Status: Acute (2) ARDS (adult respiratory distress syndrome): Problem details: He is post acute phase COVID Probably bacteremia due to secondary superinfection post COVID or pneumonia or endocarditis Status: Acute (3) Sepsis: Status: Acute (4) Constipation: Status: Acute (5) Acute respiratory failure with hypoxia: Status: Acute (6) Pneumonia due to COVID-19 virus: Status: Acute (7) Hypoxia: Status: Acute (8) Diabetes mellitus: Status: Acute (9) Chronic GERD: Problem details: cont same meds; 15 min on telephone Status: Acute (10) Acute pneumothorax: Status: Acute (11) Pneumomediastinum: Status: Acute Assessment and Plan: Who we will continue to follow with serial chest x-rays for expansion of this barotrauma and will probably more aggressively keep him paralyzed so as to minimize driving pressures in tidal volume and if need be will prone him and follow serial chest x-rays Time Spent With Patient Time: Total time spent is greater than 50% in coordination of care (as documented) at patient's floor/unit and/or counseling patient: Total time spent with greater than 50% in coordination of care (as documented) at patient's floor/unit and/or counseling patient:: 35
[2020-12-06] MEDS: Furosemide 20 MG/2 ML VIAL IVPUSH (15:36)
[2020-12-06] MEDS: Insulin Regular/NS 100 UNIT/100 ML PLAST..BAG IVCONT (15:37)
[2020-12-06 16:04] LABS: Glucose, Whole Blood 184 mg/dL (60-115)
[2020-12-06 16:04] LABS: Glucose, Whole Blood 193 mg/dL (60-115)
[2020-12-06 18:23] LABS: Glucose, Whole Blood 157 mg/dL (60-115)
[2020-12-06] MEDS: vancomycin HCL 1,250 MG in 0.9 % Sodium Chloride 250 ML 166.6 MG IV (20:02)
[2020-12-06 20:33] LABS: Glucose, Whole Blood 132 mg/dL (60-115)
[2020-12-06] MEDS: Metoclopramide HCl 10 MG/2 ML VIAL 5 MG IVPUSH (22:20)
[2020-12-06 22:31] LABS: Glucose, Whole Blood 121 mg/dL (60-115)
[2020-12-07] VITALS (30 sets, daily range): BP systolic 101–134; BP diastolic 62–80; PULSE 71–92; RESP 20–39; TEMP 37.1–37.7; O2SAT 90–99
[2020-12-07 00:40] LABS: Glucose, Whole Blood 127 mg/dL (60-115)
[2020-12-07] MEDS: Rocuronium Bromide 50 MG/5 ML VIAL IVPUSH ×4 (00:53→07:33)
[2020-12-07] MEDS: Metoclopramide HCl 10 MG/2 ML VIAL 5 MG IVPUSH ×2 (02:07→10:18)
[2020-12-07] MEDS: propofoL 1,000 MG/100 ML VIAL 26.52 MG IVCONT ×7 (02:07→21:35)
[2020-12-07 02:25] LABS: Glucose, Whole Blood 145 mg/dL (60-115)
--- NOTE | 2020-12-07 02:58 | PC.NURSE ---
ASSUMED CARE OF PT AT 1900. PT MAINTAINED ON AC VENT SETTINGS. FIO2 90-93% BUT WILL DROP WHEN RESP RATE GOES UP TO OVER 30. SAT GOES DOWN TO 87%. ETT SUCTIONED FOR SMALL AMOUNT OF CLEAR SPUTUM WITH NO DIFFERENCE IN O2 SAT. PT REPOS WITH NO DIFFERENCE IN SAT. IN THE END, PT NEEDED ROCURONIUM TO CONTROL RESP RATE WHICH IMPROVED O2 SAT. TUBE FEEDS HAVE BEEN ON AND OFF DUE TO ROCURONIUM. PA DELFINA AWARE OF THIS AND ALSO OF THE NUMBER OF TIMES PT HAS NEEDED CLAUDIA. CVP 3-4. U/O GOOD. BP STABLE. MONITOR SHOWS NSR, HR 70'S. NO ECTOPY. NO BM. BOWEL SOUNDS ABSENT ON RIGHT AND HYPOACTIVE ON LEFT. PA DELFINA AWARE AND REGLAN ORDERED.
[2020-12-07 04:28] LABS: Glucose, Whole Blood 135 mg/dL (60-115)
[2020-12-07] MEDS: Pantoprazole Sodium 40 MG/10 ML VIAL IVPUSH (05:29)
[2020-12-07 06:30] LABS: Glucose, Whole Blood 161 mg/dL (60-115)
[2020-12-07 07:48] LABS: Hematocrit 37.8 % (42-52); Hemoglobin 11.8 g/dl (14.0-18.0); Mean Corpuscular HGB Conc 31.2 g/dl (31.0-36.0); Mean Corpuscular Hemoglobin 27.6 pg (27.0-33.0); Mean Corpuscular Volume 88.3 fL (80-98); Mean Platelet Volume 10.1 fL (9.4-12.4); Platelet Count 225 X10*3/uL (160-400); Red Blood Count 4.28 X10*6/uL (4.60-5.80); Red Cell Distribution Width 14.5 % (11.0-16.0); White Blood Count 13.3 X10*3/uL (4.8-10.8)
[2020-12-07 07:52] LABS: INTERNATIONAL NORM RATIO 1.1 (0.9-1.1); Prothrombin Time 13.5 SEC (10.8-13.0)
[2020-12-07 07:53] LABS: Venous Blood Gas Refer to POC result
[2020-12-07 07:54] LABS: VBG Base Excess 1.3 mmol/L; VBG HCO3 22 mmol/L (22-26); VBG pCO2 27 mmHg; VBG pH 7.52 (7.32-7.43); VBG pO2 139 mmHg
[2020-12-07 07:55] LABS: Partial Thromboplastin Time 31.2 SEC (24.1-38.0)
[2020-12-07 08:13] LABS: Anion Gap 17 (12-20); Blood Urea Nitrogen 27 mg/dL (9-16); Calcium 7.5 mg/dL (8.4-10.2); Carbon Dioxide 23 mmol/L (22-29); Chloride 104 mmol/L (96-108); Creatinine Clr Calc Pharmacy 123.4; Estimated Glomerular Filt Rate > 60; Glucose Random 150 mg/dL (60-115); Lactate Dehydrogenase 483 U/L (118-273); Magnesium 2.2 mg/dL (1.6-2.6); Phosphorus 3.1 mg/dL (2.7-4.5); Potassium 4.5 mmol/L (3.3-5.1); Sodium 139 mmol/L (135-145)
[2020-12-07 08:17] LABS: D Dimer 5155 NG/ML
[2020-12-07 08:21] LABS: Vancomycin Trough 9.2 mcg/mL (10.0-20.0)
[2020-12-07 08:21] LABS: Glucose, Whole Blood 146 mg/dL (60-115)
[2020-12-07 08:34] LABS: Ferritin 468 ng/mL (20-250)
[2020-12-07] MEDS: 0.9 % Sodium Chloride Flush 3 ML SYRINGE IVFLUSH ×2 (09:07→13:56)
[2020-12-07] MEDS: Enoxaparin Sodium 100 MG/ML SYRINGE 90 MG SUBCUT (09:08)
[2020-12-07] MEDS: vancomycin HCL 1,500 MG in 0.9 % Sodium Chloride 500 ML 333.33 MG IV (10:16)
[2020-12-07] MEDS: Chlorhexidine Gluc Oral Rinse 15 ML MOUTHWASH BUCCAL ×3 (10:17→21:23)
[2020-12-07] MEDS: dexAMETHasone sod phosphate 4 MG/ML VIAL 6 MG IVPUSH (10:17)
[2020-12-07] MEDS: Milk of Magnesia 30 ML ORAL.SUSP PO (10:17)
--- NOTE | 2020-12-07 10:30 | MHC.CLN ---
F/U REVIEWED LABS, MEDS, AND PLAN OF CARE PT CURRENTLY RECEVING TF RE-STARTED AT 10CC/HR RECOMMEND GLUCERNA AT MAX GOAL RATE 50CC/HR WITH 240CC FREE WATER FLUSHES Q 6HRS AND 30CC PROSOURCE TID TO PROVIDE 1380KCALS (2080KCALS WITH SEDATION; 28KCALS/KG BASED ON CMW), 95G PROTEIN (1.3G/KG) R/T COVID, 1984CC TOTAL WATER FROM FORMULA AND FLUSHES MONITOR TOLERANCE, RESIDUALS AND LYTES
--- NOTE | 2020-12-07 10:31 | P.PNCC_ITS ---
Subjective Subjective Date of Service: 12/07/20 Interval History: 70-year-old gentleman with underlying history of diabetes mellitus, IBS, renal stones, COVID positive on 11/22/2020, admitted on 12/02/2020 with progressive dyspnea, treated with dexamethasone, not a candidate for remdesivir. Hospital course complicated by progressive hypoxic respiratory failure requiring escalating levels of oxygen supplementation and necessitating transfer to intensive care unit for intubation on 12/03/2020. Hospital course further complicated by development of pneumomediastinum and left-sided pneu mothorax noted on CT chest on 12/06/2020 and staphylococcal bacteremia. Physical Exam Vital Signs: Vital Signs: Last Vital Signs Temp 99.1 F 12/07/20 09:00 Pulse 76 12/07/20 09:00 Resp 32 H 12/07/20 09:00 BP 116/69 12/07/20 09:00 Pulse Ox 90 L 12/07/20 09:00 Body Mass Index 31.4 Const: General: no acute distress and other (Sedated on the vent) Eyes: Sclerae: sclerae normal EOM: EOMs intact bilaterally Neck: Neck: Yes no lymphadenopathy, Yes trachea midline and Yes supple Resp: Auscultation: crackles (Diffuse bilateral) Cardio: Rate: regular rate Rhythm: regular rhythm Heart sounds: no gallops, no murmurs and no rubs GI: Palpation (GI): Soft to palpation and Other GI palpation findings present ( Nontender) Auscultation: normal bowel sounds Extrem: General: Yes no pedal edema, No cyanosis and Yes pedal edema (1+ bilateral) Objective Data Labs CBC & Chem 7: 12/06/20 05:15 12/07/20 07:37 Labs: Laboratory Results - last 24 hr 12/06/20 12/06/20 12/06/20 05:55 07:52 10:03 PT INR APTT D-Dimer VBG pH VBG pCO2 VBG pO2 VBG HCO3 VBG O2 Saturation VBG Base Excess Sodium Potassium Chloride Carbon Dioxide Anion Gap BUN Creatinine Estim Creat Clear Calc Estimated GFR POC Glucose 149 H 127 H 220 H Random Glucose Calcium Phosphorus Magnesium Ferritin Lactate Dehydrogenase Vancomycin Trough 12/06/20 12/06/20 12/06/20 11:41 14:28 16:00 PT INR APTT D-Dimer VBG pH VBG pCO2 VBG pO2 VBG HCO3 VBG O2 Saturation VBG Base Excess Sodium Potassium Chloride Carbon Dioxide Anion Gap BUN Creatinine Estim Creat Clear Calc Estimated GFR POC Glucose 217 H 184 H 193 H Random Glucose Calcium Phosphorus Magnesium Ferritin Lactate Dehydrogenase Vancomycin Trough 12/06/20 12/06/20 12/06/20 18:10 20:09 22:24 PT INR APTT D-Dimer VBG pH VBG pCO2 VBG pO2 VBG HCO3 VBG O2 Saturation VBG Base Excess Sodium Potassium Chloride Carbon Dioxide Anion Gap BUN Creatinine Estim Creat Clear Calc Estimated GFR POC Glucose 157 H 132 H 121 H Random Glucose Calcium Phosphorus Magnesium Ferritin Lactate Dehydrogenase Vancomycin Trough 12/07/20 12/07/20 12/07/20 00:35 02:12 04:12 PT INR APTT D-Dimer VBG pH VBG pCO2 VBG pO2 VBG HCO3 VBG O2 Saturation VBG Base Excess Sodium Potassium Chloride Carbon Dioxide Anion Gap BUN Creatinine Estim Creat Clear Calc Estimated GFR POC Glucose 127 H 145 H 135 H Random Glucose Calcium Phosphorus Magnesium Ferritin Lactate Dehydrogenase Vancomycin Trough 12/07/20 12/07/20 12/07/20 06:25 07:36 07:36 PT 13.5 H INR 1.1 APTT 31.2 D-Dimer 5155 VBG pH VBG pCO2 VBG pO2 VBG HCO3 VBG O2 Saturation VBG Base Excess Sodium Potassium Chloride Carbon Dioxide Anion Gap BUN Creatinine Estim Creat Clear Calc Estimated GFR POC Glucose 161 H Random Glucose Calcium Phosphorus Magnesium Ferritin Lactate Dehydrogenase Vancomycin Trough 9.2 L 12/07/20 12/07/20 12/07/20 07:37 07:48 08:16 PT INR APTT D-Dimer VBG pH 7.52 H VBG pCO2 27 VBG pO2 139 VBG HCO3 22 VBG O2 Saturation 98.0 VBG Base Excess 1.3 Sodium 139 Potassium 4.5 Chloride 104 Carbon Dioxide 23 Anion Gap 17 BUN 27 H Creatinine 0.58 Estim Creat Clear Calc 123.4 Estimated GFR > 60 POC Glucose 146 H Random Glucose 150 H Calcium 7.5 L Phosphorus 3.1 Magnesium 2.2 Ferritin 468 H Lactate Dehydrogenase 483 H Vancomycin Trough Microbiology Microbiology Results: Microbiology 12/03/20 15:22 Blood - Central Line Blood Culture - Final Staphylococcus hominis Staphylococcus epidermidis Staphylococcus saprophyticus 12/03/20 15:22 Blood - Central Line Blood Culture - Final Staphylococcus hominis Staphylococcus epidermidis Staphylococcus saprophyticus 12/01/20 15:31 Blood - Venous Blood Culture - Final No growth after 5 days. 12/01/20 15:34 Blood - Venous Blood Culture - Final No growth after 5 days. 12/03/20 15:28 Sputum - Suctioned Gram Stain - Final 12/03/20 15:28 Sputum - Suctioned Sputum Culture - Final Progress Note: A&P Assessment and plan (1) Pneumomediastinum: Status: Acute Assessment and Plan: Assessment: 70-year-old gentleman with underlying diabetes mellitus admitted with progressive acute hypoxic respiratory failure secondary to COVID-19 ARDS now requiring ventilatory support, further complicated by pneumomediastinum, left pneumothorax, and staphylococcal bacteremia. Plan: Neuro: No acute issues. Cardiac: 2D echocardiogram is pending for evaluation for possible heart failure component to his hypoxemia. Pulmonary: Acute hypoxic respiratory failure secondary to COVID-19 ARDS requiring ventilatory support, further complicated by pneumomediastinum and pneumothorax, does not require chest tube at this time. Continue to titrate off ventilatory support. Minimize peak and plateau pressures. Renal: No acute issues. Endo: Switched from insulin drip to Lantus and sliding scale insulin protocol. GI: No acute issues. ID: Possible staphylococcal bacteremia versus contamination. Blood cultures redrawn. Continues on vancomycin. Heme/Onc: No acute issues. Psych: No acute issues. Miscellaneous: No acute issues. Prophylaxis: Lovenox, famotidine Diet: Tube feeds Critical care time spent: 60 minutes (2) Acute pneumothorax: Status: Acute (3) Bacteremia due to Gram-positive bacteria: Status: Acute (4) Acute respiratory distress syndrome (ARDS) due to COVID-19 virus: Status: Acute (5) Acute respiratory failure with hypoxia: Status: Acute (6) Diabetes mellitus: Status: Acute Time Spent With Patient Total time spent with greater than 50% in coordination of care (as documented) at patient's floor/unit and/or counseling patient:: 0 Critical Care Time Critical Care Time (minutes): 60
[2020-12-07 10:45] LABS: Acanthocytes 1+ (0-2) /OIF; Atypical Lymph Absolute Manual 0.3 x10*3/uL; Atypical Lymphs Percent Manual 2 % (0-6); Band Neutrophils Percent 4 % (3-5); Burr Cells 2+ (3-5) /OIF; Eosinophils Absolute Manual 0.1 X10*3/UL (0.0-0.8); Eosinophils Percent Manual 1 % (0-4); Lymphocytes Absolute Manual 0.4 X10*3/uL (0.6-4.8); Lymphocytes Percent Manual 3 % (20-40); Macrocytosis 1+ (5-14) /OIF; Metamyelocytes Absolute 0.7 X10*3/uL; Metamyelocytes Percent 5 %; Monocytes Absolute Manual 0.3 X10*3/uL (0.0-1.2); Monocytes Percent Manual 2 % (2-11); Myelocytes Absolute 0.1 X10*/uL; Myelocytes Percent 1 %; Neutrophils Absolute Manual 11.4 X10*3/uL (2.2-7.9); Neutrophils Percent Manual 82 % (45-73); Platelet Estimate NORMAL (NORMAL); Platelet Morphology Comment NORMAL; Polychromasia 2+ (3-5) /OIF; RBC Morphology NOTED; Tear Drop Cells 1+ (0-2) /OIF
[2020-12-07 10:46] LABS: Smudge Cells PRESENT
[2020-12-07] MEDS: Insulin Glargine,Hum.rec.anlog 100 UNIT/ML 10 ML VIAL 20 UNIT SUBCUT (11:41)
[2020-12-07 11:47] LABS: Glucose, Whole Blood 154 mg/dL (60-115)
[2020-12-07] MEDS: Insulin Lispro 100 UNIT/ML 3 ML VIAL SUBCUT ×2 (12:35→18:22)
[2020-12-07 12:42] LABS: Glucose, Whole Blood 164 mg/dL (60-115)
--- NOTE | 2020-12-07 13:50 | CA_ITS ---
Transthoracic Echocardiogram Patient (Last, First, Middle): Mariposa Davis, Gender: Male Date of : 1950 Age: 70 Procedure Date: 12/07/2020 Procedure Type: Transthoracic Echocardiogram Location: ICU Height: 167.64 cm Weight: 88. kg BSA: 1.97 m2 Heart Rate: bpm BP: 125 / 74 mmHg Print Shop Assistant: Referring MD: Mitchel Patel MD Symptoms: hypoxemia, CHF Study Quality: Fair ECG Rhythm: Sinus Conclusions: - Normal left ventricular size and systolic function. - Normal right ventricular cavity size and systolic function. - There is mild aortic valve stenosis. - There is mild dilatation of the ascending aorta. Findings Left Ventricle Normal left ventricular size and systolic function. There is mildly increased left ventricular wall thickness. The visually estimated ejection fraction is between 60-65%. There is no evidence of regional wall motion abnormalities. Diastolic function is normal for age. Right Ventricle Normal right ventricular cavity size and systolic function. Atria The left atrium is normal in size. Aortic Valve There is a normal trileaflet aortic valve. There is mild thickening of the aortic valve. There is mild aortic valve stenosis. There is no aortic valve regurgitation. Mitral Valve Normal mitral valve structure and function. There is no mitral valve regurgitation. There is no mitral valve stenosis. Pulmonic Valve Normal pulmonic valve structure and function. There is trace pulmonic valve regurgitation. Tricuspid Valve Normal tricuspid valve structure and function. There is trace tricuspid valve regurgitation. Indeterminate right atrial pressure. RVSP = 23 + RAP Great Vessels There is mild dilatation of the ascending aorta. The visualized portions of the pulmonary artery and branches are normal. Venous The inferior vena cava is dilated and does not collapse with inspiration. Pericardium/Pleural There is no evidence of pericardial effusion. Prior Study Comparison No significant change compared to prior study dated: 06/05/2020. Measurements 2D Linear Measurements IVSd: 1.37 0.6-0.9/0.6-1.0 cm LVIDd: 4.25 3.9-5.3/4.2-5.9 cm LVIDd Index: 2.16 2.4-3.2/2.2-3.1 cm/m2 LVIDs: 2.49 2.0-3.6 cm LVPWd: 1.31 0.7-1.1 cm Ao Root: 3.30 2.1-3.5 cm LA Diam: 3.90 2.7-3.8/3.0-4.0 cm LAIDs Index: 1.98 1.5-2.3 cm/m2 LV Mass: 266.29 67-162/88-224 g LV Mass Index: 135.17 43-95/49-115 g/m2 LVOT Diam: 2.40 3.0+(-)1.3 cm Mitral Valve MV Pk E: 0.64 MV PK A: 1.50 MV Decel Time: 106.00 E/A: 0.40 E'Lateral: 11.10 E'Medial: 8.70 E/E' Med: 7.40 E/E' Lat: 5.80 PHT: 31.00 MVA PHT: 7.10 Decel Rich: 6.06 Aortic Valve AoV Pk Baron: 2.36 AoV Mn Baron: 1.50 AoV VTI: 0.43 AoV Pk Grad: 22.00 Aov Mn Grad: 11.00 CURRY Cont.VTI: 2.81 LVOT LVOT Pk Baron: 1.26 LVOT Mn Baron: 0.82 LVOT VTI: 0.27 LVOT Pk Grad: 6.00 LVOT Mn Grad: 3.00 LVOT Diam: 2.40 LVOT Area: 4.52 Diastolic Function MV Pk E: 0.64 MV Pk A: 1.50 E/A: 0.40 E'Medial: 8.70 E/E' Med: 7.40 E' Laterial: 11.10 E/E' Lat: 5.80 Tricuspid Valve TR Pk Baron: 2.23 TR Pk Grad: 20.00 RA Press: 3.00 RVSP: 23.00 Great Vessels Aorta Ao Root-2D: 3.30 2.0-3.7 cm Ao Asc: 3.40 2.1-3.4 cm Pulmonary Valve PV Pk Baron: 1.56 Peak PV Grad: 10.00 Updated in Other Vendor System with Status of Final Lloyd Gonzalez MD electronically signed on 12/07/2020 6:54:35 PM with status of Final
--- NOTE | 2020-12-07 14:41 | MHC.CM.PN ---
Pt remains intubated with COVID as well as with bacteremia. D/C plans were for a return to home with family support - will follow for assessment of d/c needs.
--- NOTE | 2020-12-07 16:13 | PC.NURSE ---
Pt intubated sedated, vent changes AC 16, Tv 400, FiO2 70%, PEEP 12. Breathing over vent 30-41 BR/min, MD aware, ETCO2 25. On propofol 50mcg/kg/min. Inspiratory/exp rhonchi, minimal inline secretions. Frequent oral secretions suctioned with yankeur. Non behavioral restraints in place. Vanco trough low 9.2 adjusted dose 1.5 G. Blood cultures redrawn today, old set question of contaminate. Prelim negative. urine output fine 70ml/hr. No BM today, hypoactive bowel sounds. Refraining from rocurronium. Tube feedings restarted at 10ml/hr. Son updated. Bed locked and in lowest position. High fowlers.
[2020-12-07 18:07] LABS: Glucose, Whole Blood 227 mg/dL (60-115)
[2020-12-07] MEDS: vancomycin HCL 1,500 MG in 0.9 % Sodium Chloride 500 ML 333.3 MG IV (21:23)
[2020-12-08] VITALS (34 sets, daily range): BP systolic 83–185; BP diastolic 47–81; PULSE 42–810; RESP 14–33; TEMP 37–37.6; O2SAT 92–99
[2020-12-08 00:52] LABS: Glucose, Whole Blood 169 mg/dL (60-115)
[2020-12-08] MEDS: propofoL 1,000 MG/100 ML VIAL 26.52 MG IVCONT ×6 (01:02→23:48)
[2020-12-08] MEDS: Insulin Lispro 100 UNIT/ML 3 ML VIAL SUBCUT ×4 (01:03→17:57)
[2020-12-08] MEDS: 0.9 % Sodium Chloride Flush 3 ML SYRINGE IVFLUSH ×3 (01:03→15:03)
[2020-12-08 05:54] LABS: Hematocrit 38.1 % (42-52); Hemoglobin 11.7 g/dl (14.0-18.0); Mean Corpuscular HGB Conc 30.7 g/dl (31.0-36.0); Mean Corpuscular Hemoglobin 27.7 pg (27.0-33.0); Mean Corpuscular Volume 90.3 fL (80-98); NRBC Pct Auto 0.2 /100WBC (0.0-0.2); Platelet Count 261 X10*3/uL (160-400); Red Blood Count 4.22 X10*6/uL (4.60-5.80); Red Cell Distribution Width 14.5 % (11.0-16.0); White Blood Count 12.2 X10*3/uL (4.8-10.8)
[2020-12-08 06:02] LABS: Venous Blood Gas Refer to POC result
[2020-12-08 06:03] LABS: VBG Base Excess 4.4 mmol/L; VBG HCO3 29 mmol/L (22-26); VBG pCO2 44 mmHg; VBG pH 7.42 (7.32-7.43); VBG pO2 54 mmHg
[2020-12-08 06:26] LABS: Alanine Aminotransferase 25 U/L (0-40); Albumin Level 2.7 g/dL (3.5-5.0); Alkaline Phosphatase 48 U/L (39-117); Anion Gap 13 (12-20); Aspartate Amino Transferase 24 U/L (5-37); Band Neutrophils Percent 6 % (3-5); Bilirubin Total 0.5 mg/dL (0.0-1.0); Blood Urea Nitrogen 27 mg/dL (9-16); Calcium 7.7 mg/dL (8.4-10.2); Carbon Dioxide 27 mmol/L (22-29); Chloride 105 mmol/L (96-108); Creatinine Clr Calc Pharmacy 127.8; Eosinophils Absolute Manual 0.4 X10*3/UL (0.0-0.8); Eosinophils Percent Manual 3 % (0-4); Estimated Glomerular Filt Rate > 60; Glucose Random 176 mg/dL (60-115); Lymphocytes Absolute Manual 0.6 X10*3/uL (0.6-4.8); Lymphocytes Percent Manual 5 % (20-40); Magnesium 2.4 mg/dL (1.6-2.6); Metamyelocytes Absolute 0.6 X10*3/uL; Metamyelocytes Percent 5 %; Myelocytes Absolute 0.1 X10*/uL; Myelocytes Percent 1 %; Neutrophils Absolute Manual 10.5 X10*3/uL (2.2-7.9); Neutrophils Percent Manual 80 % (45-73); Potassium 4.9 mmol/L (3.3-5.1); Sodium 140 mmol/L (135-145); Total Protein 5.9 g/dL (6.5-8.0)
[2020-12-08 06:28] LABS: Large Platelet PRESENT; Platelet Estimate NORMAL (NORMAL); Platelet Morphology Comment NOTED; Polychromasia 1+ (0-2) /OIF; RBC Morphology NOTED; Toxic Vacuolation PRESENT
[2020-12-08 06:28] LABS: Glucose, Whole Blood 166 mg/dL (60-115)
[2020-12-08] MEDS: dexAMETHasone sod phosphate 4 MG/ML VIAL 6 MG IVPUSH (08:32)
[2020-12-08] MEDS: Insulin Glargine,Hum.rec.anlog 100 UNIT/ML 10 ML VIAL 20 UNIT SUBCUT (08:32)
[2020-12-08] MEDS: Famotidine/PF 20 MG/2 ML VIAL IVPUSH (08:32)
[2020-12-08] MEDS: Milk of Magnesia 30 ML ORAL.SUSP PO (08:32)
[2020-12-08] MEDS: Enoxaparin Sodium 40 MG/0.4 ML SYRINGE SUBCUT (08:32)
[2020-12-08] MEDS: Chlorhexidine Gluc Oral Rinse 15 ML MOUTHWASH BUCCAL ×3 (08:32→22:18)
[2020-12-08] MEDS: Albumin Human 25 % 100 ML IV ×2 (08:34→19:50)
[2020-12-08 09:16] LABS: Vancomycin Random 6.9 mcg/mL (15-20)
[2020-12-08] MEDS: Furosemide 500 MG in Container,Empty 0 ML IVCONT (09:16)
[2020-12-08] MEDS: vancomycin HCL 1,500 MG in 0.9 % Sodium Chloride 500 ML 333.3 MG IV (11:04)
[2020-12-08] MEDS: fentaNYL citrate/NS 1,000 MCG/100 ML PLAST..BAG 2.5 MCG IVCONT (11:57)
[2020-12-08 12:05] LABS: Glucose, Whole Blood 225 mg/dL (60-115)
--- NOTE | 2020-12-08 12:56 | MHC.CM.PN ---
Pt continues with intubation d/t COVID respiratory failure. Repeat blood cx pending at this time. D/C disposition remains undetermined: will depend on pt progress. CM to follow
--- NOTE | 2020-12-08 12:58 | PM.CCPN ---
Subjective Subjective Date of Service: 12/08/20 Interval History: 70-year-old gentleman with underlying history of diabetes mellitus, IBS, renal stones, COVID positive on 11/22/2020, admitted on 12/02/2020 with progressive dyspnea, treated with dexamethasone, not a candidate for remdesivir. Hospital course complicated by progressive hypoxic respiratory failure requiring escalating levels of oxygen supplementation and necessitating transfer to intensive care unit for intubation on 12/03/2020. Hospital course further complicated by development of pneumomediastinum and left-sided pneumothorax noted on CT chest on 12/06/2020 and staphylococcal bacteremia. No events overnight. FiO2 requirements are improving. Physical Exam Vital Signs: Vital Signs: Last Vital Signs Temp 99.7 F 12/08/20 12:00 Pulse 83 12/08/20 12:00 Resp 32 H 12/08/20 12:44 BP 121/68 12/08/20 12:00 Pulse Ox 93 12/08/20 12:00 Body Mass Index 31.4 Const: General: no acute distress and other (Poor arousal with sedation vacation) Eyes: Sclerae: sclerae normal EOM: EOMs intact bilaterally Neck: Neck: Yes no lymphadenopathy, Yes trachea midline and Yes supple Resp: Auscultation: crackles (Diffuse bilateral) Cardio: Rate: regular rate Rhythm: regular rhythm Heart sounds: no gallops, no murmurs and no rubs GI: Palpation (GI): Soft to palpation and Other GI palpation findings present ( Nontender) Auscultation: normal bowel sounds Extrem: General: No clubbing, No cyanosis and Yes pedal edema (1+ bilateral) Objective Data Labs CBC & Chem 7: 12/08/20 05:45 12/08/20 05:45 Labs: Laboratory Results - last 24 hr 12/07/20 12/08/20 12/08/20 18:04 00:48 05:45 WBC RBC Hgb Hct MCV MCH MCHC RDW Plt Count MPV Immature Gran % (Auto) Neut % (Auto) Lymph % (Auto) [place] % (Auto) Eos % (Auto) Baso % (Auto) Lymph # (Auto) [place] # (Auto) Eos # (Auto) Baso # (Auto) Abs Immat Gran (auto) Absolute Neuts (auto) Absolute Nucleated RBC Nucleated RBC % (auto) Neutrophils % (Manual) Band Neutrophils % Lymphocytes % (Manual) Eosinophils % (Manual) Metamyelocytes % Myelocytes % Abs Neuts (Manual) Lymphocytes # (Manual) Eosinophils # (Manual) Metamyelocytes # Myelocytes # Toxic Vacuolation Platelet Estimate Large Platelets Plt Morphology Comment RBC Morphology Polychromasia VBG pH VBG pCO2 VBG pO2 VBG HCO3 VBG O2 Saturation VBG Base Excess Sodium 140 Potassium 4.9 Chloride 105 Carbon Dioxide 27 Anion Gap 13 BUN 27 H Creatinine 0.56 Estim Creat Clear Calc 127.8 Estimated GFR > 60 POC Glucose 227 H 169 H Random Glucose 176 H Calcium 7.7 L Phosphorus 3.0 Magnesium 2.4 Total Bilirubin 0.5 AST 24 ALT 25 Alkaline Phosphatase 48 Total Protein 5.9 L Albumin 2.7 L D Random Vancomycin 12/08/20 12/08/20 12/08/20 05:45 05:54 06:23 WBC 12.2 H RBC 4.22 L Hgb 11.7 L Hct 38.1 L MCV 90.3 MCH 27.7 MCHC 30.7 L RDW 14.5 Plt Count 261 MPV 10.0 Immature Gran % (Auto) Cancelled Neut % (Auto) Cancelled Lymph % (Auto) Cancelled [place] % (Auto) Cancelled Eos % (Auto) Cancelled Baso % (Auto) Cancelled Lymph # (Auto) Cancelled [place] # (Auto) Cancelled Eos # (Auto) Cancelled Baso # (Auto) Cancelled Abs Immat Gran (auto) Cancelled Absolute Neuts (auto) Cancelled Absolute Nucleated RBC 0.020 H Nucleated RBC % (auto) 0.2 Neutrophils % (Manual) 80 H Band Neutrophils % 6 H Lymphocytes % (Manual) 5 L Eosinophils % (Manual) 3 Metamyelocytes % 5 Myelocytes % 1 Abs Neuts (Manual) 10.5 H Lymphocytes # (Manual) 0.6 Eosinophils # (Manual) 0.4 Metamyelocytes # 0.6 Myelocytes # 0.1 Toxic Vacuolation PRESENT Platelet Estimate NORMAL Large Platelets PRESENT Plt Morphology Comment NOTED RBC Morphology NOTED Polychromasia 1+ (0-2) VBG pH 7.42 VBG pCO2 44 VBG pO2 54 VBG HCO3 29 H VBG O2 Saturation 84.0 VBG Base Excess 4.4 Sodium Potassium Chloride Carbon Dioxide Anion Gap BUN Creatinine Estim Creat Clear Calc Estimated GFR POC Glucose 166 H Random Glucose Calcium Phosphorus Magnesium Total Bilirubin AST ALT Alkaline Phosphatase Total Protein Albumin Random Vancomycin 12/08/20 12/08/20 08:39 11:59 WBC RBC Hgb Hct MCV MCH MCHC RDW Plt Count MPV Immature Gran % (Auto) Neut % (Auto) Lymph % (Auto) [place] % (Auto) Eos % (Auto) Baso % (Auto) Lymph # (Auto) [place] # (Auto) Eos # (Auto) Baso # (Auto) Abs Immat Gran (auto) Absolute Neuts (auto) Absolute Nucleated RBC Nucleated RBC % (auto) Neutrophils % (Manual) Band Neutrophils % Lymphocytes % (Manual) Eosinophils % (Manual) Metamyelocytes % Myelocytes % Abs Neuts (Manual) Lymphocytes # (Manual) Eosinophils # (Manual) Metamyelocytes # Myelocytes # Toxic Vacuolation Platelet Estimate Large Platelets Plt Morphology Comment RBC Morphology Polychromasia VBG pH VBG pCO2 VBG pO2 VBG HCO3 VBG O2 Saturation VBG Base Excess Sodium Potassium Chloride Carbon Dioxide Anion Gap BUN Creatinine Estim Creat Clear Calc Estimated GFR POC Glucose 225 H Random Glucose Calcium Phosphorus Magnesium Total Bilirubin AST ALT Alkaline Phosphatase Total Protein Albumin Random Vancomycin 6.9 L Microbiology Microbiology Results: Microbiology 12/03/20 15:22 Blood - Central Line Blood Culture - Final Staphylococcus hominis Staphylococcus epidermidis Staphylococcus saprophyticus 12/03/20 15:22 Blood - Central Line Blood Culture - Final Staphylococcus hominis Staphylococcus epidermidis Staphylococcus saprophyticus 12/01/20 15:31 Blood - Venous Blood Culture - Final No growth after 5 days. 12/01/20 15:34 Blood - Venous Blood Culture - Final No growth after 5 days. 12/03/20 15:28 Sputum - Suctioned Gram Stain - Final 12/03/20 15:28 Sputum - Suctioned Sputum Culture - Final Progress Note: A&P Assessment and plan (1) Acute respiratory distress syndrome (ARDS) due to COVID-19 virus: Status: Acute Assessment and Plan: Assessment: 70-year-old gentleman with underlying diabetes mellitus admitted with progressive acute hypoxic respiratory failure secondary to COVID-19 ARDS now requiring ventilatory support, further complicated by pneumomediastinum, left pneumothorax, and staphylococcal bacteremia. Plan: Neuro: No acute issues. Cardiac: 2D echocardiogram is essentially normal. Pulmonary: Acute hypoxic respiratory failure secondary to COVID-19 ARDS requiring ventilatory support, further complicated by pneumomediastinum and pneumothorax, does not require chest tube at this time. Continue to titrate off ventilatory support. Minimize peak and plateau pressures. Renal: No acute issues. Endo: Diabetes mellitus, continue on Lantus and sliding scale insulin protocol. GI: No acute issues. ID: Possible staphylococcal bacteremia versus contamination. Blood cultures redrawn. Continues on vancomycin. Heme/Onc: No acute issues. Psych: No acute issues. Miscellaneous: No acute issues. Prophylaxis: Lovenox, famotidine Diet: Tube feeds Critical care time spent: 60 minutes (2) Pneumomediastinum: Status: Acute (3) Acute pneumothorax: Status: Acute (4) Bacteremia due to Gram-positive bacteria: Status: Acute (5) Acute respiratory failure with hypoxia: Status: Acute (6) Sepsis: Status: Acute (7) Diabetes mellitus: Status: Acute Time Spent With Patient Total time spent with greater than 50% in coordination of care (as documented) at patient's floor/unit and/or counseling patient:: 0 Critical Care Time Critical Care Time (minutes): 60
[2020-12-08] MEDS: Albumin Human 25 % 100 ML 200 ML IV (13:43)
--- NOTE | 2020-12-08 14:04 | PM.IDPN ---
Subjective Subjective Date of Service: 12/08/20 Interval History: blood cultures off central line positive multiple staph organisms,periphery negative Objective Data Labs CBC & Chem 7: 12/08/20 05:45 12/08/20 05:45 Labs: Laboratory Results - last 24 hr 12/07/20 12/08/20 12/08/20 18:04 00:48 05:45 WBC RBC Hgb Hct MCV MCH MCHC RDW Plt Count MPV Immature Gran % (Auto) Neut % (Auto) Lymph % (Auto) [place] % (Auto) Eos % (Auto) Baso % (Auto) Lymph # (Auto) [place] # (Auto) Eos # (Auto) Baso # (Auto) Abs Immat Gran (auto) Absolute Neuts (auto) Absolute Nucleated RBC Nucleated RBC % (auto) Neutrophils % (Manual) Band Neutrophils % Lymphocytes % (Manual) Eosinophils % (Manual) Metamyelocytes % Myelocytes % Abs Neuts (Manual) Lymphocytes # (Manual) Eosinophils # (Manual) Metamyelocytes # Myelocytes # Toxic Vacuolation Platelet Estimate Large Platelets Plt Morphology Comment RBC Morphology Polychromasia VBG pH VBG pCO2 VBG pO2 VBG HCO3 VBG O2 Saturation VBG Base Excess Sodium 140 Potassium 4.9 Chloride 105 Carbon Dioxide 27 Anion Gap 13 BUN 27 H Creatinine 0.56 Estim Creat Clear Calc 127.8 Estimated GFR > 60 POC Glucose 227 H 169 H Random Glucose 176 H Calcium 7.7 L Phosphorus 3.0 Magnesium 2.4 Total Bilirubin 0.5 AST 24 ALT 25 Alkaline Phosphatase 48 Total Protein 5.9 L Albumin 2.7 L D Random Vancomycin 12/08/20 12/08/20 12/08/20 05:45 05:54 06:23 WBC 12.2 H RBC 4.22 L Hgb 11.7 L Hct 38.1 L MCV 90.3 MCH 27.7 MCHC 30.7 L RDW 14.5 Plt Count 261 MPV 10.0 Immature Gran % (Auto) Cancelled Neut % (Auto) Cancelled Lymph % (Auto) Cancelled [place] % (Auto) Cancelled Eos % (Auto) Cancelled Baso % (Auto) Cancelled Lymph # (Auto) Cancelled [place] # (Auto) Cancelled Eos # (Auto) Cancelled Baso # (Auto) Cancelled Abs Immat Gran (auto) Cancelled Absolute Neuts (auto) Cancelled Absolute Nucleated RBC 0.020 H Nucleated RBC % (auto) 0.2 Neutrophils % (Manual) 80 H Band Neutrophils % 6 H Lymphocytes % (Manual) 5 L Eosinophils % (Manual) 3 Metamyelocytes % 5 Myelocytes % 1 Abs Neuts (Manual) 10.5 H Lymphocytes # (Manual) 0.6 Eosinophils # (Manual) 0.4 Metamyelocytes # 0.6 Myelocytes # 0.1 Toxic Vacuolation PRESENT Platelet Estimate NORMAL Large Platelets PRESENT Plt Morphology Comment NOTED RBC Morphology NOTED Polychromasia 1+ (0-2) VBG pH 7.42 VBG pCO2 44 VBG pO2 54 VBG HCO3 29 H VBG O2 Saturation 84.0 VBG Base Excess 4.4 Sodium Potassium Chloride Carbon Dioxide Anion Gap BUN Creatinine Estim Creat Clear Calc Estimated GFR POC Glucose 166 H Random Glucose Calcium Phosphorus Magnesium Total Bilirubin AST ALT Alkaline Phosphatase Total Protein Albumin Random Vancomycin 12/08/20 12/08/20 08:39 11:59 WBC RBC Hgb Hct MCV MCH MCHC RDW Plt Count MPV Immature Gran % (Auto) Neut % (Auto) Lymph % (Auto) [place] % (Auto) Eos % (Auto) Baso % (Auto) Lymph # (Auto) [facility] # (Auto) Eos # (Auto) Baso # (Auto) Abs Immat Gran (auto) Absolute Neuts (auto) Absolute Nucleated RBC Nucleated RBC % (auto) Neutrophils % (Manual) Band Neutrophils % Lymphocytes % (Manual) Eosinophils % (Manual) Metamyelocytes % Myelocytes % Abs Neuts (Manual) Lymphocytes # (Manual) Eosinophils # (Manual) Metamyelocytes # Myelocytes # Toxic Vacuolation Platelet Estimate Large Platelets Plt Morphology Comment RBC Morphology Polychromasia VBG pH VBG pCO2 VBG pO2 VBG HCO3 VBG O2 Saturation VBG Base Excess Sodium Potassium Chloride Carbon Dioxide Anion Gap BUN Creatinine Estim Creat Clear Calc Estimated GFR POC Glucose 225 H Random Glucose Calcium Phosphorus Magnesium Total Bilirubin AST ALT Alkaline Phosphatase Total Protein Albumin Random Vancomycin 6.9 L Microbiology Microbiology Results: Microbiology 12/07/20 10:48 Blood - Venous Blood Culture - Preliminary No growth after 24 hours. 12/07/20 10:48 Blood - Venous Blood Culture - Preliminary No growth after 24 hours. 12/03/20 15:22 Blood - Central Line Blood Culture - Final Staphylococcus hominis Staphylococcus epidermidis Staphylococcus saprophyticus 12/03/20 15:22 Blood - Central Line Blood Culture - Final Staphylococcus hominis Staphylococcus epidermidis Staphylococcus saprophyticus 12/01/20 15:31 Blood - Venous Blood Culture - Final No growth after 5 days. 12/01/20 15:34 Blood - Venous Blood Culture - Final No growth after 5 days. 12/03/20 15:28 Sputum - Suctioned Gram Stain - Final 12/03/20 15:28 Sputum - Suctioned Sputum Culture - Final Physical Exam Vital Signs: Vital Signs: Last Vital Signs Temp 99.5 F 12/08/20 13:00 Pulse 80 12/08/20 13:00 Resp 31 H 12/08/20 13:00 BP 116/69 12/08/20 13:00 Pulse Ox 92 12/08/20 13:00 Body Mass Index 31.4 Const: General: cooperative HENMT: Head: Yes normal to inspection Mouth: Normal oral and palatal mucosa present Resp: Other: vented Effort & Inspection: normal respiratory effort Cardio: Rate: regular rate Rhythm: regular rhythm GI: Palpation (GI): Soft to palpation and nontender Skin: General skin exam: no rashes or lesions noted Extrem: General: Yes normal to inspection Assessment and Plan Assessment and plan (1) Acute respiratory distress syndrome (ARDS) due to COVID-19 virus: Problem details: Patient remains vented Status: Acute (2) Bacteremia due to Gram-positive bacteria: Problem details: contaminant Status: Acute Assessment and Plan: Stop Vancomycin Time Spent With Patient Time: Total time spent is greater than 50% in coordination of care (as documented) at patient's floor/unit and/or counseling patient: Time with patient: 15 - 24 minutes
[2020-12-08 14:30] LABS: Glucose, Whole Blood 301 mg/dL (60-115)
[2020-12-08] MEDS: propofoL 1,000 MG/100 ML VIAL 21.22 MG IVCONT ×2 (16:17→19:50)
[2020-12-08 18:09] LABS: Glucose, Whole Blood 276 mg/dL (60-115)
[2020-12-08 19:05] LABS: Anion Gap 14 (12-20); Blood Urea Nitrogen 26 mg/dL (9-16); Calcium 7.9 mg/dL (8.4-10.2); Carbon Dioxide 30 mmol/L (22-29); Chloride 99 mmol/L (96-108); Creatinine Clr Calc Pharmacy 105.2; Estimated Glomerular Filt Rate > 60; Glucose Random 298 mg/dL (60-115); Potassium 4.7 mmol/L (3.3-5.1); Sodium 138 mmol/L (135-145)
[2020-12-09] VITALS (29 sets, daily range): BP systolic 102–164; BP diastolic 50–90; PULSE 67–116; RESP 13–31; TEMP 37.5–38.2; O2SAT 89–97
[2020-12-09 00:02] LABS: Glucose, Whole Blood 209 mg/dL (60-115)
--- NOTE | 2020-12-09 01:21 | PC.NURSE ---
P. 20 beat run of ventricular tachycardia- I. PT SEDATED UNDER THE INFLUENCES OF PROPOFOL AND FENTANYL FOR VENTILATORY MANAGEMENT. SKIN SURFACES INTACT. LASIX DRIP OFF. LOW DOSE LEVOPHED 0.01MCG/KG/MIN HAS BEEN MANDATORY TO ACHIEVE B/P GUIDELINES. ECG DISPLAYS SR. TUBE FEEDINGS ADVANCED TO 35ML/HR. U/O 100ML/HR I STAT LYTES/MAG++ I. SON AND FAMILY FACE TIMED PT-ASSISTED WITH OPERATION OF IPAD-
[2020-12-09 01:34] LABS: Anion Gap 14 (12-20); Blood Urea Nitrogen 29 mg/dL (9-16); Calcium 8.3 mg/dL (8.4-10.2); Carbon Dioxide 32 mmol/L (22-29); Chloride 98 mmol/L (96-108); Creatinine Clr Calc Pharmacy 106.8; Estimated Glomerular Filt Rate > 60; Glucose Random 195 mg/dL (60-115); Magnesium 2.5 mg/dL (1.6-2.6); Potassium 4.2 mmol/L (3.3-5.1); Sodium 140 mmol/L (135-145)
[2020-12-09] MEDS: Insulin Lispro 100 UNIT/ML 3 ML VIAL SUBCUT ×4 (01:54→17:16)
[2020-12-09] MEDS: 0.9 % Sodium Chloride Flush 3 ML SYRINGE IVFLUSH ×4 (01:55→23:10)
[2020-12-09] MEDS: Albumin Human 25 % 100 ML 200 ML IV (02:35)
[2020-12-09] MEDS: propofoL 1,000 MG/100 ML VIAL 26.52 MG IVCONT ×2 (02:37→06:38)
[2020-12-09 06:00] LABS: Hematocrit 33.8 % (42-52); Hemoglobin 10.3 g/dl (14.0-18.0); Mean Corpuscular HGB Conc 30.5 g/dl (31.0-36.0); Mean Corpuscular Hemoglobin 27.3 pg (27.0-33.0); Mean Corpuscular Volume 89.7 fL (80-98); Mean Platelet Volume 9.6 fL (9.4-12.4); Platelet Count 254 X10*3/uL (160-400); Red Blood Count 3.77 X10*6/uL (4.60-5.80); Red Cell Distribution Width 14.4 % (11.0-16.0); White Blood Count 11.5 X10*3/uL (4.8-10.8)
[2020-12-09 06:02] LABS: VBG Base Excess 11.3 mmol/L; VBG HCO3 35 mmol/L (22-26); VBG pCO2 44 mmHg; VBG pH 7.51 (7.32-7.43); VBG pO2 54 mmHg
[2020-12-09 06:10] LABS: Venous Blood Gas Refer to POC result
[2020-12-09] MEDS: fentaNYL citrate/NS 1,000 MCG/100 ML PLAST..BAG 5 MCG IVCONT (06:38)
--- NOTE | 2020-12-09 06:39 | PC.NURSE ---
E. SERUM ELECTROLYTES NORMAL. ECG DISPLAYS SR. NO FURTHER SALVOS OF VT. HEMODYNAMICALLY STABLE. TUBE FEEDS ADVANCED TO GOAL 50ML/HR. LASIX DRIP ON HOLD.
[2020-12-09 06:42] LABS: Alanine Aminotransferase 24 U/L (0-40); Albumin Level 3.7 g/dL (3.5-5.0); Alkaline Phosphatase 48 U/L (39-117); Anion Gap 18 (12-20); Aspartate Amino Transferase 22 U/L (5-37); Bilirubin Total 0.8 mg/dL (0.0-1.0); Blood Urea Nitrogen 32 mg/dL (9-16); Calcium 8.3 mg/dL (8.4-10.2); Carbon Dioxide 28 mmol/L (22-29); Chloride 99 mmol/L (96-108); Creatinine Clr Calc Pharmacy 111.8; Estimated Glomerular Filt Rate > 60; Glucose Random 182 mg/dL (60-115); Magnesium 2.4 mg/dL (1.6-2.6); Phosphorus 2.5 mg/dL (2.7-4.5); Potassium 4.1 mmol/L (3.3-5.1); Sodium 141 mmol/L (135-145); Total Protein 6.5 g/dL (6.5-8.0)
[2020-12-09 06:44] LABS: Glucose, Whole Blood 188 mg/dL (60-115)
[2020-12-09 06:45] LABS: Atypical Lymph Absolute Manual 0.1 x10*3/uL; Atypical Lymphs Percent Manual 1 % (0-6); Band Neutrophils Percent 6 % (3-5); Lymphocytes Percent Manual 9 % (20-40); Metamyelocytes Absolute 0.2 X10*3/uL; Metamyelocytes Percent 2 %; Monocytes Absolute Manual 0.3 X10*3/uL (0.0-1.2); Monocytes Percent Manual 3 % (2-11); Neutrophils Absolute Manual 9.8 X10*3/uL (2.2-7.9); Neutrophils Percent Manual 79 % (45-73); Platelet Estimate NORMAL (NORMAL); Polychromasia 1+ (0-2) /OIF; RBC Morphology NOTED
[2020-12-09 06:46] LABS: Platelet Morphology Comment NORMAL
[2020-12-09] MEDS: Chlorhexidine Gluc Oral Rinse 15 ML MOUTHWASH BUCCAL ×2 (07:56→13:47)
[2020-12-09] MEDS: Milk of Magnesia 30 ML ORAL.SUSP PO (07:56)
[2020-12-09] MEDS: dexAMETHasone sod phosphate 4 MG/ML VIAL 6 MG IVPUSH (07:56)
[2020-12-09] MEDS: Enoxaparin Sodium 40 MG/0.4 ML SYRINGE SUBCUT (07:58)
[2020-12-09] MEDS: Famotidine/PF 20 MG/2 ML VIAL IVPUSH (07:59)
[2020-12-09] MEDS: Insulin Glargine,Hum.rec.anlog 100 UNIT/ML 10 ML VIAL 20 UNIT SUBCUT (07:59)
[2020-12-09] MEDS: Sodium,Potassium Phosphates POWD.PACK 2 PACKET PO (08:00)
--- NOTE | 2020-12-09 09:48 | MHC.CLN ---
F/U REVIEWED LABS, MEDS, AND PLAN OF CARE PT CURRENTLY RECEVING TF GLUCERNA AT MAX GOAL RATE 50CC/HR WITH 240CC FREE WATER FLUSHES Q 6HRS AND 30CC PROSOURCE TID TO PROVIDE 1380KCALS (2080KCALS WITH SEDATION; 28KCALS/KG BASED ON CMW), 95G PROTEIN (1.3G/KG) R/T COVID, 1984CC TOTAL WATER FROM FORMULA AND FLUSHES MONITOR TOLERANCE, RESIDUALS AND LYTES
--- NOTE | 2020-12-09 09:50 | HE.PHANOTE ---
Addendum entered by Chelsi Nye [facility] 12/09/20 10:00: Random vancomycin level ordered for Dec 10 @ 0900 prior to scheduled 10AM dosing for monitoring. ~Jane Nye, PharmD, BCPS, BCCCP x [phone] Original Note: Vancomycin Note Patient is a 70 y/o male with vancomycin restarted for bacteremia with blood cultures resulting Staphylococcus epidermidis, hominis and saprophyticus. Previous dosing regimens have not achieved predicted AUC goal level based on expected vancomycin random and non-equilibrium trough levels. Obesity status: 139 % of IBW with an adjusted body weight of 73.6 kg. Renal status: His geriatric est CrCl is ~7 mL/min using his adjusted body weight. However, his clearance of vancomycin exceeds what would be expected for age and may represent some from of hyperdynamic clearance. Maintenance dosing regimen will restart regimen at 1g IV q8h and reevaluate using a combination of dosing by level and [employer] for AUC estimation.
[2020-12-09] MEDS: propofoL 1,000 MG/100 ML VIAL 15.91 MG IVCONT (10:22)
[2020-12-09] MEDS: vancomycin HCL 1,000 MG in 0.9 % Sodium Chloride 250 ML 270 MG IV ×2 (10:39→17:11)
[2020-12-09 12:03] LABS: Glucose, Whole Blood 294 mg/dL (60-115)
--- NOTE | 2020-12-09 12:19 | P.PNCC_ITS ---
Subjective Subjective Date of Service: 12/09/20 Interval History: 70-year-old gentleman with underlying history of diabetes mellitus, IBS, renal stones, COVID positive on 11/22/2020, admitted on 12/02/2020 with progressive dyspnea, treated with dexamethasone, not a candidate for remdesivir. Hospital course complicated by progressive hypoxic respiratory failure requiring escalating levels of oxygen supplementation and necessitating transfer to intensive care unit for intubation on 12/03/2020. Hospital course further complicated by development of pneumomediastinum and left-sided pneu mothorax noted on CT chest on 12/06/2020 and staphylococcal bacteremia. No events overnight. FiO2 requirements are improving. Pressure support trial today. Physical Exam Vital Signs: Vital Signs: Last Vital Signs Temp 100.6 F H 12/09/20 12:00 Pulse 96 12/09/20 12:00 Resp 29 H 12/09/20 12:00 BP 113/77 12/09/20 12:00 Pulse Ox 93 12/09/20 12:00 Body Mass Index 31.4 Const: General: no acute distress and other (Sedated on the vent) Eyes: Sclerae: sclerae normal Neck: Neck: Yes no lymphadenopathy, Yes trachea midline and Yes supple Resp: Auscultation: crackles (Diffuse bilateral) Cardio: Rate: regular rate Rhythm: regular rhythm Heart sounds: no gallops, no murmurs and no rubs GI: Palpation (GI): Soft to palpation and Other GI palpation findings present ( Nontender) Auscultation: normal bowel sounds Extrem: General: No clubbing, No cyanosis and Yes pedal edema (Trace bilateral) Objective Data Labs CBC & Chem 7: 12/09/20 05:45 12/09/20 05:45 Labs: Laboratory Results - last 24 hr 12/08/20 12/08/20 12/08/20 14:26 17:56 18:18 WBC RBC Hgb Hct MCV MCH MCHC RDW Plt Count MPV Immature Gran % (Auto) Neut % (Auto) Lymph % (Auto) [place] % (Auto) Eos % (Auto) Baso % (Auto) Lymph # (Auto) [place] # (Auto) Eos # (Auto) Baso # (Auto) Abs Immat Gran (auto) Absolute Neuts (auto) Absolute Nucleated RBC Nucleated RBC % (auto) Neutrophils % (Manual) Band Neutrophils % Lymphocytes % (Manual) Atypical Lymphs % (Man) Monocytes % (Manual) Metamyelocytes % Abs Neuts (Manual) Lymphocytes # (Manual) Atyp Lymphs # (Manual) Monocytes # (Manual) Metamyelocytes # Platelet Estimate Plt Morphology Comment RBC Morphology Polychromasia VBG pH VBG pCO2 VBG pO2 VBG HCO3 VBG O2 Saturation VBG Base Excess Sodium 138 Potassium 4.7 Chloride 99 Carbon Dioxide 30 H Anion Gap 14 BUN 26 H Creatinine 0.68 Estim Creat Clear Calc 105.2 Estimated GFR > 60 POC Glucose 301 H 276 H Random Glucose 298 H D Calcium 7.9 L Phosphorus Magnesium Total Bilirubin AST ALT Alkaline Phosphatase Total Protein Albumin 12/08/20 12/09/20 12/09/20 23:51 00:58 05:45 WBC 11.5 H RBC 3.77 L Hgb 10.3 L Hct 33.8 L MCV 89.7 MCH 27.3 MCHC 30.5 L RDW 14.4 Plt Count 254 MPV 9.6 Immature Gran % (Auto) Cancelled Neut % (Auto) Cancelled Lymph % (Auto) Cancelled [place] % (Auto) Cancelled Eos % (Auto) Cancelled Baso % (Auto) Cancelled Lymph # (Auto) Cancelled [place] # (Auto) Cancelled Eos # (Auto) Cancelled Baso # (Auto) Cancelled Abs Immat Gran (auto) Cancelled Absolute Neuts (auto) Cancelled Absolute Nucleated RBC 0.000 Nucleated RBC % (auto) 0.0 Neutrophils % (Manual) 79 H Band Neutrophils % 6 H Lymphocytes % (Manual) 9 L Atypical Lymphs % (Man) 1 Monocytes % (Manual) 3 Metamyelocytes % 2 Abs Neuts (Manual) 9.8 H Lymphocytes # (Manual) 1.0 Atyp Lymphs # (Manual) 0.1 Monocytes # (Manual) 0.3 Metamyelocytes # 0.2 Platelet Estimate NORMAL Plt Morphology Comment NORMAL RBC Morphology NOTED Polychromasia 1+ (0-2) VBG pH VBG pCO2 VBG pO2 VBG HCO3 VBG O2 Saturation VBG Base Excess Sodium 140 Potassium 4.2 Chloride 98 Carbon Dioxide 32 H Anion Gap 14 BUN 29 H Creatinine 0.67 Estim Creat Clear Calc 106.8 Estimated GFR > 60 POC Glucose 209 H Random Glucose 195 H Calcium 8.3 L Phosphorus Magnesium 2.5 Total Bilirubin AST ALT Alkaline Phosphatase Total Protein Albumin 12/09/20 12/09/20 12/09/20 05:45 05:55 06:41 WBC RBC Hgb Hct MCV MCH MCHC RDW Plt Count MPV Immature Gran % (Auto) Neut % (Auto) Lymph % (Auto) [place] % (Auto) Eos % (Auto) Baso % (Auto) Lymph # (Auto) [place] # (Auto) Eos # (Auto) Baso # (Auto) Abs Immat Gran (auto) Absolute Neuts (auto) Absolute Nucleated RBC Nucleated RBC % (auto) Neutrophils % (Manual) Band Neutrophils % Lymphocytes % (Manual) Atypical Lymphs % (Man) Monocytes % (Manual) Metamyelocytes % Abs Neuts (Manual) Lymphocytes # (Manual) Atyp Lymphs # (Manual) Monocytes # (Manual) Metamyelocytes # Platelet Estimate Plt Morphology Comment RBC Morphology Polychromasia VBG pH 7.51 H VBG pCO2 44 VBG pO2 54 VBG HCO3 35 H VBG O2 Saturation 84.0 VBG Base Excess 11.3 Sodium 141 Potassium 4.1 Chloride 99 Carbon Dioxide 28 Anion Gap 18 BUN 32 H Creatinine 0.64 Estim Creat Clear Calc 111.8 Estimated GFR > 60 POC Glucose 188 H Random Glucose 182 H Calcium 8.3 L Phosphorus 2.5 L Magnesium 2.4 Total Bilirubin 0.8 AST 22 ALT 24 Alkaline Phosphatase 48 Total Protein 6.5 Albumin 3.7 D 12/09/20 12:00 WBC RBC Hgb Hct MCV MCH MCHC RDW Plt Count MPV Immature Gran % (Auto) Neut % (Auto) Lymph % (Auto) [place] % (Auto) Eos % (Auto) Baso % (Auto) Lymph # (Auto) [place] # (Auto) Eos # (Auto) Baso # (Auto) Abs Immat Gran (auto) Absolute Neuts (auto) Absolute Nucleated RBC Nucleated RBC % (auto) Neutrophils % (Manual) Band Neutrophils % Lymphocytes % (Manual) Atypical Lymphs % (Man) Monocytes % (Manual) Metamyelocytes % Abs Neuts (Manual) Lymphocytes # (Manual) Atyp Lymphs # (Manual) Monocytes # (Manual) Metamyelocytes # Platelet Estimate Plt Morphology Comment RBC Morphology Polychromasia VBG pH VBG pCO2 VBG pO2 VBG HCO3 VBG O2 Saturation VBG Base Excess Sodium Potassium Chloride Carbon Dioxide Anion Gap BUN Creatinine Estim Creat Clear Calc Estimated GFR POC Glucose 294 H Random Glucose Calcium Phosphorus Magnesium Total Bilirubin AST ALT Alkaline Phosphatase Total Protein Albumin Microbiology Microbiology Results: Microbiology 12/07/20 10:48 Blood - Venous Blood Culture - Preliminary No growth after 24 hours. 12/07/20 10:48 Blood - Venous Blood Culture - Preliminary No growth after 24 hours. 12/03/20 15:22 Blood - Central Line Blood Culture - Final Staphylococcus hominis Staphylococcus epidermidis Staphylococcus saprophyticus 12/03/20 15:22 Blood - Central Line Blood Culture - Final Staphylococcus hominis Staphylococcus epidermidis Staphylococcus saprophyticus 12/01/20 15:31 Blood - Venous Blood Culture - Final No growth after 5 days. 12/01/20 15:34 Blood - Venous Blood Culture - Final No growth after 5 days. 12/03/20 15:28 Sputum - Suctioned Gram Stain - Final 12/03/20 15:28 Sputum - Suctioned Sputum Culture - Final Progress Note: A&P Assessment and plan (1) Pneumomediastinum: Status: Acute Assessment and Plan: Assessment: 70-year-old gentleman with underlying diabetes mellitus admitted with progressive acute hypoxic respiratory failure secondary to COVID-19 ARDS now requiring ventilatory support, further complicated by pneumomediastinum, left pneumothorax, and staphylococcal bacteremia. Plan: Neuro: No acute issues. Cardiac: 2D echocardiogram is essentially normal. Pulmonary: Acute hypoxic respiratory failure secondary to COVID-19 ARDS requiring ventilatory support, further complicated by pneumomediastinum and pneumothorax, does not require chest tube at this time. Slowly improving. Continue to titrate off ventilatory support. Minimize peak and plateau pressures. Pressor support trial today. Renal: No acute issues. Endo: Diabetes mellitus, continue on Lantus and sliding scale insulin protocol. GI: No acute issues. ID: Possible staphylococcal bacteremia versus contamination. Repeat blood cultures negative. Has been taking of vancomycin yesterday. However, febrile again this a.m. still with leukocytosis. Restarted on vancomycin. Heme/Onc: No acute issues. Psych: No acute issues. Miscellaneous: No acute issues. Prophylaxis: Lovenox, famotidine Diet: Tube feeds Critical care time spent: 60 minutes (2) Acute pneumothorax: Status: Acute (3) Diabetes mellitus: Status: Acute (4) Bacteremia due to Gram-positive bacteria: Status: Acute (5) Acute respiratory distress syndrome (ARDS) due to COVID-19 virus: Status: Acute Time Spent With Patient Total time spent with greater than 50% in coordination of care (as documented) at patient's floor/unit and/or counseling patient:: 0 Critical Care Time Critical Care Time (minutes): 60
[2020-12-09] MEDS: Furosemide 500 MG in Container,Empty 0 ML IVCONT (13:47)
--- NOTE | 2020-12-09 15:09 | PC.NURSE ---
Sedation titrated this am, placed on PSV trial, able to shut off sedation at 1330 and placed on psv 04/15, to2 sat trending 96% and rr trending 28-30, pt moving all extremities, strong cough, not following commands, MD at bedside, order recieved to extubate patient, pt extubated at 1355 to 7l oxymizer, pt remains confused and drowsy, o2 sat trending 94-95% with rr 17-20
[2020-12-09 17:25] LABS: Glucose, Whole Blood 311 mg/dL (60-115)
[2020-12-09 20:54] LABS: Anion Gap 17 (12-20); Blood Urea Nitrogen 26 mg/dL (9-16); Calcium 8.7 mg/dL (8.4-10.2); Carbon Dioxide 29 mmol/L (22-29); Chloride 99 mmol/L (96-108); Creatinine Clr Calc Pharmacy 103.7; Estimated Glomerular Filt Rate > 60; Glucose Random 226 mg/dL (60-115); Potassium 3.9 mmol/L (3.3-5.1); Sodium 141 mmol/L (135-145)
[2020-12-09 21:01] LABS: Vancomycin Trough 24.7 mcg/mL (10.0-20.0)
[2020-12-10] VITALS (14 sets, daily range): BP systolic 130–161; BP diastolic 82–94; PULSE 92–116; RESP 11–24; TEMP 38.2–38.7; O2SAT 93–100
[2020-12-10] MEDS: Insulin Lispro 100 UNIT/ML 3 ML VIAL SUBCUT ×4 (00:06→21:18)
[2020-12-10 00:21] LABS: Glucose, Whole Blood 184 mg/dL (60-115)
--- NOTE | 2020-12-10 03:26 | PC.NURSE ---
pt awake/moans/nonverbal. gross weakness of extremities. localizes hands toward invasive lines. skin surfaces intact. supplemental o2 8 lpm via oxyimizer. resp effort is regular unlabored. breath sounds cta/diminished throughout. frequent oral suctioning with removal of thick yellow roach secreations. hemodynamically stable. ecg displays sr. abdomen round/distended/semifirm. burger cathter patent and draining hazy yellow urine u/o 100-150 ml/hr. continuous 5mg/hr. vanco level trough 24.7 0200 vanco dose held per midlevel geoff.
[2020-12-10 05:38] LABS: VBG Base Excess 6.3 mmol/L; VBG HCO3 27 mmol/L (22-26); VBG pCO2 30 mmHg; VBG pO2 52 mmHg
[2020-12-10 06:17] LABS: MANUAL DIFF FLAG NO
[2020-12-10 06:18] LABS: Basophils Percent Auto 0.2 % (0-2); Eosinophils Percent Auto 0.2 % (0-4); Hematocrit 39.8 % (42-52); Hemoglobin 12.6 g/dl (14.0-18.0); Imm Gran Abs Auto 0.47 X10*3/uL (0.00-0.03); Imm Gran Pct Auto 3.6 % (0.0-0.4); Lymphocytes Absolute Auto 1.5 X10*3/uL (1.2-4.9); Lymphocytes Percent Auto 11.6 % (20-40); Mean Corpuscular HGB Conc 31.7 g/dl (31.0-36.0); Mean Corpuscular Hemoglobin 27.9 pg (27.0-33.0); Mean Corpuscular Volume 88.2 fL (80-98); Mean Platelet Volume 10.1 fL (9.4-12.4); Monocytes Absolute Auto 0.6 X10*3/uL (0.1-1.2); Monocytes Percent Auto 4.8 % (2-11); Neutrophils Absolute Auto 10.4 X10*3/uL (2.0-8.3); Neutrophils Percent Auto 79.6 % (45-73); Platelet Count 323 X10*3/uL (160-400); Red Blood Count 4.51 X10*6/uL (4.60-5.80); Red Cell Distribution Width 14.3 % (11.0-16.0)
[2020-12-10 06:19] LABS: Venous Blood Gas Refer to POC result
[2020-12-10 06:42] LABS: Anion Gap 18 (12-20); Blood Urea Nitrogen 29 mg/dL (9-16); Calcium 8.9 mg/dL (8.4-10.2); Carbon Dioxide 29 mmol/L (22-29); Chloride 100 mmol/L (96-108); Creatinine Clr Calc Pharmacy 105.2; Estimated Glomerular Filt Rate > 60; Glucose Random 203 mg/dL (60-115); Magnesium 2.4 mg/dL (1.6-2.6); Phosphorus 2.7 mg/dL (2.7-4.5); Potassium 3.8 mmol/L (3.3-5.1); Sodium 143 mmol/L (135-145)
[2020-12-10 08:02] LABS: VBG pH 7.56 (7.32-7.43)
--- NOTE | 2020-12-10 08:23 | HE.PHANOTE ---
Vancomycin Note Vancomycin level drawn on 12/09 @ 20:12 was scheduled in error which resulted in the lab being drawn less than 10 minutes after the completion of the vancomycin infusion that began at 17:11. Hence, the level obtained was not meaningful and the next dose was held based on that information. A new level will be scheduled. Jane Nye, KekeD, BCPS, BCCCP x [phone]
[2020-12-10] MEDS: 0.9 % Sodium Chloride Flush 3 ML SYRINGE IVFLUSH ×2 (08:30→17:04)
[2020-12-10] MEDS: dexAMETHasone sod phosphate 4 MG/ML VIAL 6 MG IVPUSH (08:30)
[2020-12-10] MEDS: Famotidine/PF 20 MG/2 ML VIAL IVPUSH (08:31)
[2020-12-10] MEDS: Enoxaparin Sodium 40 MG/0.4 ML SYRINGE SUBCUT (08:33)
[2020-12-10] MEDS: Insulin Glargine,Hum.rec.anlog 100 UNIT/ML 10 ML VIAL 20 UNIT SUBCUT (09:05)
[2020-12-10] MEDS: cefEPime HCl 1 GM in 0.9 % Sodium Chloride 50 ML IV ×2 (10:27→17:03)
[2020-12-10] MEDS: vancomycin HCL 1,000 MG in 0.9 % Sodium Chloride 250 ML 270 MG IV ×2 (10:27→17:03)
[2020-12-10 12:19] LABS: Glucose, Whole Blood 313 mg/dL (60-115)
--- NOTE | 2020-12-10 13:07 | P.PNCC_ITS ---
Subjective Subjective Date of Service: 12/10/20 Interval History: 70-year-old gentleman with underlying history of diabetes mellitus, IBS, renal stones, COVID positive on 11/22/2020, admitted on 12/02/2020 with progressive dyspnea, treated with dexamethasone, not a candidate for remdesivir. Hospital course complicated by progressive hypoxic respiratory failure requiring escalating levels of oxygen supplementation and necessitating transfer to intensive care unit for intubation on 12/03/2020. Hospital course further complicated by development of pneumomediastinum and left-sided pneu mothorax noted on CT chest on 12/06/2020 and staphylococcal bacteremia. Extubated 12/09/2020 No events overnight. Physical Exam Vital Signs: Vital Signs: Last Vital Signs Temp 101.7 F H 12/10/20 12:00 Pulse 111 H 12/10/20 12:00 Resp 20 12/10/20 12:00 BP 131/86 12/10/20 12:00 Pulse Ox 100 12/10/20 12:00 Body Mass Index 31.4 Const: General: no acute distress, awake and other (Delirious) Eyes: Sclerae: sclerae normal EOM: EOMs intact bilaterally Neck: Neck: Yes no lymphadenopathy, Yes trachea midline and Yes supple Resp: Effort & Inspection: normal respiratory effort and no respiratory distress Auscultation: crackles (Diffuse bilateral) Cardio: Rate: tachycardic Rhythm: regular rhythm Heart sounds: no gallops, no murmurs and no rubs GI: Palpation (GI): Soft to palpation and Other GI palpation findings present ( Nontender) Auscultation: normal bowel sounds Extrem: General: Yes no pedal edema, No clubbing and No cyanosis Objective Data Labs CBC & Chem 7: 12/10/20 05:24 12/10/20 05:24 Labs: Laboratory Results - last 24 hr 12/09/20 12/09/20 12/09/20 17:14 20:12 20:12 WBC RBC Hgb Hct MCV MCH MCHC RDW Plt Count MPV Immature Gran % (Auto) Neut % (Auto) Lymph % (Auto) [place] % (Auto) Eos % (Auto) Baso % (Auto) Lymph # (Auto) [place] # (Auto) Eos # (Auto) Baso # (Auto) Abs Immat Gran (auto) Absolute Neuts (auto) Absolute Nucleated RBC Nucleated RBC % (auto) VBG pH VBG pCO2 VBG pO2 VBG HCO3 VBG O2 Saturation VBG Base Excess Sodium 141 Potassium 3.9 Chloride 99 Carbon Dioxide 29 Anion Gap 17 BUN 26 H Creatinine 0.69 Estim Creat Clear Calc 103.7 Estimated GFR > 60 POC Glucose 311 H Random Glucose 226 H Calcium 8.7 Phosphorus Magnesium Albumin Vancomycin Trough 24.7 H 12/10/20 12/10/20 12/10/20 00:03 05:24 05:24 WBC 13.0 H RBC 4.51 L Hgb 12.6 L D Hct 39.8 L MCV 88.2 MCH 27.9 MCHC 31.7 RDW 14.3 Plt Count 323 D MPV 10.1 Immature Gran % (Auto) 3.6 H Neut % (Auto) 79.6 H Lymph % (Auto) 11.6 L [place] % (Auto) 4.8 Eos % (Auto) 0.2 Baso % (Auto) 0.2 Lymph # (Auto) 1.5 [place] # (Auto) 0.6 Eos # (Auto) 0.0 Baso # (Auto) 0.0 Abs Immat Gran (auto) 0.47 H Absolute Neuts (auto) 10.4 H Absolute Nucleated RBC 0.000 Nucleated RBC % (auto) 0.0 VBG pH VBG pCO2 VBG pO2 VBG HCO3 VBG O2 Saturation VBG Base Excess Sodium 143 Potassium 3.8 Chloride 100 Carbon Dioxide 29 Anion Gap 18 BUN 29 H Creatinine 0.68 Estim Creat Clear Calc 105.2 Estimated GFR > 60 POC Glucose 184 H Random Glucose 203 H Calcium 8.9 Phosphorus 2.7 Magnesium 2.4 Albumin 4.0 Vancomycin Trough 12/10/20 12/10/20 05:31 12:15 WBC RBC Hgb Hct MCV MCH MCHC RDW Plt Count MPV Immature Gran % (Auto) Neut % (Auto) Lymph % (Auto) [place] % (Auto) Eos % (Auto) Baso % (Auto) Lymph # (Auto) [place] # (Auto) Eos # (Auto) Baso # (Auto) Abs Immat Gran (auto) Absolute Neuts (auto) Absolute Nucleated RBC Nucleated RBC % (auto) VBG pH 7.56 H VBG pCO2 30 VBG pO2 52 VBG HCO3 27 H VBG O2 Saturation 78.0 VBG Base Excess 6.3 Sodium Potassium Chloride Carbon Dioxide Anion Gap BUN Creatinine Estim Creat Clear Calc Estimated GFR POC Glucose 313 H Random Glucose Calcium Phosphorus Magnesium Albumin Vancomycin Trough Microbiology Microbiology Results: Microbiology 12/07/20 10:48 Blood - Venous Blood Culture - Preliminary No growth after 48 hours. 12/07/20 10:48 Blood - Venous Blood Culture - Preliminary No growth after 48 hours. 12/03/20 15:22 Blood - Central Line Blood Culture - Final Staphylococcus hominis Staphylococcus epidermidis Staphylococcus saprophyticus 12/03/20 15:22 Blood - Central Line Blood Culture - Final Staphylococcus hominis Staphylococcus epidermidis Staphylococcus saprophyticus 12/01/20 15:31 Blood - Venous Blood Culture - Final No growth after 5 days. 12/01/20 15:34 Blood - Venous Blood Culture - Final No growth after 5 days. 12/03/20 15:28 Sputum - Suctioned Gram Stain - Final 12/03/20 15:28 Sputum - Suctioned Sputum Culture - Final Progress Note: A&P Assessment and plan (1) Acute respiratory distress syndrome (ARDS) due to COVID-19 virus: Status: Acute Assessment and Plan: Assessment: 70-year-old gentleman with underlying diabetes mellitus admitted with progressive acute hypoxic respiratory failure secondary to COVID-19 ARDS now requiring ventilatory support, further complicated by pneumomediastinum, left pneumothorax, and staphylococcal bacteremia. Plan: Neuro: No acute issues. Cardiac: 2D echocardiogram is essentially normal. Pulmonary: Acute hypoxic respiratory failure secondary to COVID-19 ARDS requiring ventilatory support, further complicated by pneumomediastinum and pneumothorax. Extubated 12/09/2020. Left pneumothorax resolved. Pneum omediastinum improving. Continue to titrate off supplemental oxygen as tolerated. Renal: No acute issues. Endo: Diabetes mellitus, continue on Lantus and sliding scale insulin protocol. GI: No acute issues. ID: Possible staphylococcal bacteremia versus contamination. Repeat blood cultures negative. Re-cultured. Now on cefepime and vancomycin pending cultures. Heme/Onc: No acute issues. Psych: No acute issues. Miscellaneous: No acute issues. Prophylaxis: Lovenox, Diet: Pending swallow evaluation Critical care time spent: 60 minutes (2) Pneumomediastinum: Status: Acute (3) Acute pneumothorax: Status: Acute (4) Bacteremia due to Gram-positive bacteria: Status: Acute (5) Acute respiratory failure with hypoxia: Status: Acute (6) Diabetes mellitus: Status: Acute Time Spent With Patient Total time spent with greater than 50% in coordination of care (as documented) at patient's floor/unit and/or counseling patient:: 0 Critical Care Time Critical Care Time (minutes): 60
[2020-12-10] MEDS: Furosemide 500 MG in Container,Empty 0 ML IVCONT (13:23)
--- NOTE | 2020-12-10 14:09 | MHC.CM.PN ---
Pt successfully extubated on 12/09: presently on varying amounts of O2 via Oxymask. Pt will spend another 24 - 48 hours in ICU and then hopefully transition to IMC for continued care. Original d/c plan was for a return to home without services, however, his prolonged ICU stay may necessitate STR d/t deconditioning. Will follow as pt improves and functional abilities can be better assessed.
--- NOTE | 2020-12-10 14:36 | PC.NURSE ---
Pt restless this am , confused, able to state name but very mumbled and difficult to understand, occasionally will follow commands but becomes restless. Bedside swallow eval failed, coughing after spoonfuls of water, md aware and speech eval ordered for tomorrow, continues NPO HR trending up to 120s, pt continues to be restless, temp up to 101.8 this shift, md aware, abx adjusted/ bps trending 130s-140s systollically, able to titrated o2 down to 5l via oxymizer, o2 sat trending 92-93% continues on lasix drip, 1700 of urine output this shift, no BM
[2020-12-10 17:13] LABS: Glucose, Whole Blood 303 mg/dL (60-115)
[2020-12-10 21:29] LABS: Glucose, Whole Blood 203 mg/dL (60-115)
--- NOTE | 2020-12-10 23:24 | PC.NURSE ---
Patient transferred from ICU at 2245,comfortable,sat 97% on 5 l via oxymizer
[2020-12-11] VITALS (7 sets, daily range): BP systolic 133–166; BP diastolic 80–98; PULSE 70–107; RESP 18–23; TEMP 36–37; O2SAT 95–97
[2020-12-11] MEDS: 0.9 % Sodium Chloride Flush 3 ML SYRINGE IVFLUSH ×3 (00:09→17:09)
[2020-12-11] MEDS: cefEPime HCl 1 GM in 0.9 % Sodium Chloride 50 ML IV ×3 (02:50→17:09)
[2020-12-11] MEDS: vancomycin HCL 1,000 MG in 0.9 % Sodium Chloride 250 ML 270 MG IV ×3 (04:10→17:52)
[2020-12-11 06:54] LABS: Glucose, Whole Blood 245 mg/dL (60-115)
--- NOTE | 2020-12-11 07:30 | PC.NURSE ---
Patient's son called early a.m. inquiring about his father. Updated on vitals, no SOB, comfortable, burger as son wondering if father has been OOB. Patient later in shift vary combative, spitting at staff, mask was placed on patient as to protect employees from this patient frequently attemping to spit at staff and is COVID positive. Patient swearing and name calling toward staff. Refused a.m. labs.
[2020-12-11] MEDS: dexAMETHasone sod phosphate 4 MG/ML VIAL 6 MG IVPUSH (08:50)
[2020-12-11] MEDS: Insulin Lispro 100 UNIT/ML 3 ML VIAL SUBCUT ×4 (08:50→23:50)
[2020-12-11] MEDS: Enoxaparin Sodium 40 MG/0.4 ML SYRINGE SUBCUT (08:51)
[2020-12-11] MEDS: Insulin Glargine,Hum.rec.anlog 100 UNIT/ML 10 ML VIAL 20 UNIT SUBCUT (08:51)
--- NOTE | 2020-12-11 11:33 | MHC.CM.PN ---
Patient is a transfer from ICU. Patient's temp today is 101.5. Patient is requiring O2 at 5 liters via oxymizer r/t COVID+. Also on IV Cefepime, IV Vanco and IV Lasix for CHF. Patient is very confused and combative, spitting at staff. Patient will need a PT eval to determine discharge disposition. CM will continue to follow for discharge needs.
[2020-12-11 12:16] LABS: Glucose, Whole Blood 264 mg/dL (60-115)
[2020-12-11 12:51] LABS: MANUAL DIFF FLAG NO
[2020-12-11 12:53] LABS: Venous Blood Gas Refer to POC result
[2020-12-11 12:54] LABS: VBG Base Excess 5.3 mmol/L; VBG HCO3 27 mmol/L (22-26); VBG pCO2 33 mmHg; VBG pH 7.52 (7.32-7.43); VBG pO2 55 mmHg
[2020-12-11 12:56] LABS: Basophils Percent Auto 0.1 % (0-2); Eosinophils Percent Auto 0.1 % (0-4); Hematocrit 43.3 % (42-52); Hemoglobin 13.4 g/dl (14.0-18.0); Imm Gran Abs Auto 0.17 X10*3/uL (0.00-0.03); Imm Gran Pct Auto 1.2 % (0.0-0.4); Lymphocytes Absolute Auto 0.9 X10*3/uL (1.2-4.9); Lymphocytes Percent Auto 6.8 % (20-40); Mean Corpuscular HGB Conc 30.9 g/dl (31.0-36.0); Mean Corpuscular Hemoglobin 27.5 pg (27.0-33.0); Mean Corpuscular Volume 88.9 fL (80-98); Mean Platelet Volume 9.8 fL (9.4-12.4); Monocytes Absolute Auto 0.6 X10*3/uL (0.1-1.2); Monocytes Percent Auto 4.1 % (2-11); Neutrophils Absolute Auto 12.1 X10*3/uL (2.0-8.3); Neutrophils Percent Auto 87.7 % (45-73); Platelet Count 314 X10*3/uL (160-400); Red Blood Count 4.87 X10*6/uL (4.60-5.80); Red Cell Distribution Width 14.4 % (11.0-16.0); White Blood Count 13.8 X10*3/uL (4.8-10.8)
[2020-12-11 13:33] LABS: Vancomycin Trough 12.1 mcg/mL (10.0-20.0)
[2020-12-11 13:44] LABS: Albumin Level 3.9 g/dL (3.5-5.0); Anion Gap 16 (12-20); Blood Urea Nitrogen 35 mg/dL (9-16); Calcium 8.8 mg/dL (8.4-10.2); Carbon Dioxide 29 mmol/L (22-29); Chloride 103 mmol/L (96-108); Creatinine Clr Calc Pharmacy 103.7; Estimated Glomerular Filt Rate > 60; Glucose Random 295 mg/dL (60-115); Magnesium 2.6 mg/dL (1.6-2.6); Phosphorus 3.7 mg/dL (2.7-4.5); Potassium 3.9 mmol/L (3.3-5.1); Sodium 144 mmol/L (135-145)
--- NOTE | 2020-12-11 13:58 | MHC.CLN ---
F/U PT IS CURRENTLY NPO PENDING SWALLOW EVAL EXTUBATED AND TRANSFERRED TO IMC UNIT FOLLOWING
--- NOTE | 2020-12-11 14:09 | PC.NURSE ---
Pt weaned off oxymizer and currently maintainng sao2 above 90% on 4l nc. Attempted bedside nursing swallow eval with pt with spoonfuls of water and pt did not even hold the water in his mouth nor swallow anything. speech/swalloe consult in place. npo in the meantime. lasix drip still running.
[2020-12-11 16:05] LABS: Glucose, Whole Blood 298 mg/dL (60-115)
[2020-12-11 19:55] LABS: Glucose, Whole Blood 246 mg/dL (60-115)
[2020-12-11] MEDS: Morphine Sulfate 2 MG/ML CARTRIDGE 1 MG IVPUSH (21:53)
[2020-12-11 23:36] LABS: Glucose, Whole Blood 210 mg/dL (60-115)
[2020-12-12] VITALS (8 sets, daily range): BP systolic 121–150; BP diastolic 65–87; PULSE 75–99; RESP 16–18; TEMP 36.1–36.5; O2SAT 94–99
[2020-12-12] MEDS: cefEPime HCl 1 GM in 0.9 % Sodium Chloride 50 ML IV ×3 (01:27→17:16)
[2020-12-12] MEDS: vancomycin HCL 1,000 MG in 0.9 % Sodium Chloride 250 ML 270 MG IV (01:59)
[2020-12-12] MEDS: Morphine Sulfate 2 MG/ML CARTRIDGE 1 MG IVPUSH ×2 (05:02→22:39)
[2020-12-12 05:58] LABS: Glucose, Whole Blood 192 mg/dL (60-115)
[2020-12-12] MEDS: Insulin Lispro 100 UNIT/ML 3 ML VIAL SUBCUT ×4 (06:19→20:22)
[2020-12-12] MEDS: 0.9 % Sodium Chloride Flush 3 ML SYRINGE IVFLUSH ×3 (08:05→20:18)
[2020-12-12] MEDS: Furosemide 500 MG in Container,Empty 0 ML IVCONT (08:05)
[2020-12-12] MEDS: Enoxaparin Sodium 40 MG/0.4 ML SYRINGE SUBCUT (08:05)
[2020-12-12] MEDS: dexAMETHasone sod phosphate 4 MG/ML VIAL 6 MG IVPUSH (08:06)
[2020-12-12] MEDS: Insulin Glargine,Hum.rec.anlog 100 UNIT/ML 10 ML VIAL 20 UNIT SUBCUT (08:06)
[2020-12-12] MEDS: Milk of Magnesia 30 ML ORAL.SUSP PO (08:06)
[2020-12-12 08:33] LABS: Glucose, Whole Blood 209 mg/dL (60-115)
[2020-12-12 10:01] LABS: Vancomycin Trough 24.4 mcg/mL (10.0-20.0)
[2020-12-12 10:57] LABS: Anion Gap 18 (12-20); Blood Urea Nitrogen 48 mg/dL (9-16); Calcium 8.8 mg/dL (8.4-10.2); Carbon Dioxide 27 mmol/L (22-29); Chloride 106 mmol/L (96-108); Creatinine Clr Calc Pharmacy 100.8; Estimated Glomerular Filt Rate > 60; Glucose Random 235 mg/dL (60-115); Potassium 3.6 mmol/L (3.3-5.1); Sodium 147 mmol/L (135-145)
--- NOTE | 2020-12-12 11:23 | P.PNIM_ITS ---
Subjective Subjective Date of Service: 12/12/20 Interval History: Seen in f/u for acute hypoxic respiratory failure d/t covid pneumonia. He has been strugling to breath with maximum oxygen via high flow and NRB and becoming confused. Review of Systems no fever sob Physical Exam Vital Signs: Vital Signs: Last Vital Signs Temp 97.5 F 12/12/20 11:21 Pulse 99 12/12/20 11:21 Resp 18 12/12/20 11:21 BP 127/65 12/12/20 11:21 Pulse Ox 98 12/12/20 11:21 Body Mass Index 31.4 Objective Data Current Medications Generic Name Dose Route Start Last Admin Trade Name Freq PRN Reason Stop Dose Admin Acetaminophen 650 mg 12/01/20 22:47 12/02/20 14:30 Acetaminophen 325 Mg Tablet PO 650 mg Q6H PRN Administration Pain, Mild (Pain Scale 1-3) Dexamethasone Sodium Phosphate 6 mg 12/02/20 09:00 12/12/20 08:06 Dexamethasone Sod Phosphate 4 Mg/Ml Vial IVPUSH 6 mg DAILY EKATERINA Administration Enoxaparin Sodium 40 mg 12/08/20 09:00 12/12/20 08:05 Enoxaparin Sodium 40 Mg/0.4 Ml Syringe SUBCUT 40 mg DAILY EKATERINA Administration Furosemide 500 mg/ IV 50 mls @ 0.5 mls/hr 12/08/20 08:00 12/12/20 08:05 Miscellaneous Supplies IVCONT 5 mg/hr .Q24H EKATERINA 0.5 mls/hr Administration 5 MG/HR Cefepime HCl 1 gm/ Sodium 50 mls @ 100 mls/hr 12/10/20 10:00 12/12/20 11:19 Chloride IV Infused Q8H EKATERINA Infusion Vancomycin HCl 750 mg/ Sodium 265 mls @ 265 mls/hr 12/12/20 11:00 Chloride IV Q8H EKATERINA Insulin Glargine 20 unit 12/07/20 10:30 12/12/20 08:06 Insulin Glargine,Hum.Rec.Anlog 100 Unit/Ml 10 Ml Vial SUBCUT 20 unit DAILY EKATERINA Administration Insulin Human Lispro 0 unit 12/07/20 12:00 12/12/20 06:19 Insulin Lispro 100 Unit/Ml 3 Ml Vial SUBCUT 2 unit Q6H EKATERINA Administration Protocol Magnesium Hydroxide 30 ml 12/02/20 09:00 12/12/20 08:06 Milk Of Magnesia 30 Ml Oral.Susp PO 30 ml DAILY EKATERINA Administration Morphine Sulfate 1 mg 12/11/20 21:38 12/12/20 05:02 Morphine Sulfate 2 Mg/Ml Cartridge IVPUSH 1 mg Q6H PRN Administration pain/discomfort Naloxone HCl 0.2 mg 12/08/20 11:17 Naloxone Hcl 0.4 Mg/Ml Vial IVPUSH Q2M PRN Excessive sedation or RR < 8 Pharmacy Consult 1 each 12/01/20 19:43 Consult Rx Perform Med Rec MISCELLANE ONCE PRN Consult order Sodium Chloride 3 ml 12/04/20 00:00 12/12/20 08:05 0.9 % Sodium Chloride Flush 3 Ml Syringe IVFLUSH 3 ml QSHIFT EKATERINA Administration Labs CBC & Chem 7: 12/11/20 12:43 12/12/20 09:12 Microbiology Microbiology Results: Microbiology 12/10/20 09:45 Blood - Venous Blood Culture - Preliminary No growth after 24 hours. 12/10/20 09:45 Blood - Venous Blood Culture - Preliminary No growth after 24 hours. 12/07/20 10:48 Blood - Venous Blood Culture - Preliminary No growth after 48 hours. 12/07/20 10:48 Blood - Venous Blood Culture - Preliminary No growth after 48 hours. 12/03/20 15:22 Blood - Central Line Blood Culture - Final Staphylococcus hominis Staphylococcus epidermidis Staphylococcus saprophyticus 12/03/20 15:22 Blood - Central Line Blood Culture - Final Staphylococcus hominis Staphylococcus epidermidis Staphylococcus saprophyticus 12/01/20 15:31 Blood - Venous Blood Culture - Final No growth after 5 days. 12/01/20 15:34 Blood - Venous Blood Culture - Final No growth after 5 days. 12/03/20 15:28 Sputum - Suctioned Gram Stain - Final 12/03/20 15:28 Sputum - Suctioned Sputum Culture - Final Assessment and Plan (1) Sepsis: Status: Acute (2) Pneumonia due to COVID-19 virus: Status: Acute Assessment and Plan: 70-year-old gentleman with underlying diabetes mellitus admitted with progressive acute hypoxic respiratory failure secondary to COVID-19 ARDS now requiring ventilatory support, further complicated by pneumomediastinum, left pneumothorax, and staphylococcal bacteremia. Plan: Neuro: Probably has post icu delirium Cardiac: 2D echocardiogram is essentially normal. Pulmonary: Acute hypoxic respiratory failure secondary to COVID-19 ARDS requiring ventilatory support, further complicated by pneumomediastinum and pneumothorax. Extubated 12/09/2020. Left pneumothorax resolved. Pneumomedia stinum improving. Continue to titrate off supplemental oxygen as tolerated. Renal: No acute issues. Endo: Diabetes mellitus, continue on Lantus and sliding scale insulin protocol. GI: No acute issues. ID: Bacteremia with Staph epi, staph hominis and staph saproph from 12/03 samples--on Vanco and Cefepim , I think this is contamination but will get ID input Heme/Onc: No acute issues. Psych: No acute issues. Miscellaneous: No acute issues. I will dc Lasix drip, contributing to high sodium Prophylaxis: Lovenox, Diet: Pending swallow evaluation
[2020-12-12 11:24] LABS: Glucose, Whole Blood 252 mg/dL (60-115)
[2020-12-12] MEDS: vancomycin HCL 750 MG in 0.9 % Sodium Chloride 250 ML 265 MG IV ×2 (11:27→18:16)
[2020-12-12 16:10] LABS: Glucose, Whole Blood 330 mg/dL (60-115)
[2020-12-12 19:57] LABS: Glucose, Whole Blood 228 mg/dL (60-115)
--- NOTE | 2020-12-12 23:04 | PM.IDPN ---
Subjective Subjective Date of Service: 12/12/20 Interval History: he looks comfortable on 2 l nasal cannula blood culture multiple coag neg contaminant Objective Data Labs CBC & Chem 7: 12/15/20 22:17 12/14/20 05:49 Labs: Laboratory Results - last 24 hr 12/11/20 12/12/20 12/12/20 23:25 05:40 08:18 Sodium Potassium Chloride Carbon Dioxide Anion Gap BUN Creatinine Estim Creat Clear Calc Estimated GFR POC Glucose 210 H 192 H 209 H Random Glucose Calcium Vancomycin Trough 12/12/20 12/12/20 12/12/20 09:12 09:12 11:19 Sodium 147 H Potassium 3.6 Chloride 106 Carbon Dioxide 27 Anion Gap 18 BUN 48 H Creatinine 0.71 Estim Creat Clear Calc 100.8 Estimated GFR > 60 POC Glucose 252 H Random Glucose 235 H Calcium 8.8 Vancomycin Trough 24.4 H 12/12/20 12/12/20 16:04 19:52 Sodium Potassium Chloride Carbon Dioxide Anion Gap BUN Creatinine Estim Creat Clear Calc Estimated GFR POC Glucose 330 H 228 H Random Glucose Calcium Vancomycin Trough Microbiology Microbiology Results: Microbiology 12/07/20 10:48 Blood - Venous Blood Culture - Final No growth after 5 days. 12/07/20 10:48 Blood - Venous Blood Culture - Final No growth after 5 days. 12/10/20 09:45 Blood - Venous Blood Culture - Preliminary No growth after 48 hours. 12/10/20 09:45 Blood - Venous Blood Culture - Preliminary No growth after 48 hours. 12/03/20 15:22 Blood - Central Line Blood Culture - Final Staphylococcus hominis Staphylococcus epidermidis Staphylococcus saprophyticus 12/03/20 15:22 Blood - Central Line Blood Culture - Final Staphylococcus hominis Staphylococcus epidermidis Staphylococcus saprophyticus 12/01/20 15:31 Blood - Venous Blood Culture - Final No growth after 5 days. 12/01/20 15:34 Blood - Venous Blood Culture - Final No growth after 5 days. 12/03/20 15:28 Sputum - Suctioned Gram Stain - Final 12/03/20 15:28 Sputum - Suctioned Sputum Culture - Final Physical Exam Vital Signs: Vital Signs: Last Vital Signs Temp 97.7 F 12/12/20 19:40 Pulse 86 12/12/20 19:40 Resp 16 12/12/20 19:40 BP 121/75 12/12/20 19:40 Pulse Ox 95 12/12/20 19:40 Body Mass Index 31.4 Const: General: cooperative Resp: Effort & Inspection: normal respiratory effort Cardio: Rate: regular rate Rhythm: regular rhythm GI: Palpation (GI): nontender Extrem: General: Yes normal to inspection Assessment and Plan Assessment and plan (1) Acute respiratory distress syndrome (ARDS) due to COVID-19 virus: Status: Resolved (2) Acute respiratory failure with hypoxia: Status: Resolved Assessment and Plan: stop Vancomycin day 3 Cefepime,stop two day Time Spent With Patient Time: Total time spent is greater than 50% in coordination of care (as documented) at patient's floor/unit and/or counseling patient: Time with patient: 15 - 24 minutes
[2020-12-13] MEDS: cefEPime HCl 1 GM in 0.9 % Sodium Chloride 50 ML IV ×3 (02:09→17:53)
[2020-12-13] MEDS: Acetaminophen 325 MG TABLET 650 MG PO (02:38)
[2020-12-13 03:10] LABS: Vancomycin Random 18.4 mcg/mL (15-20)
[2020-12-13 03:37] VITALS: BP 108/68; PULSE 67; RESP 20; TEMP 36.1; O2SAT 96
[2020-12-13 07:34] VITALS: BP 129/73; PULSE 68; RESP 18; TEMP 36.4; O2SAT 92
[2020-12-13 07:42] LABS: Glucose, Whole Blood 134 mg/dL (60-115)
[2020-12-13] MEDS: 0.9 % Sodium Chloride Flush 3 ML SYRINGE IVFLUSH ×2 (08:39→22:40)
[2020-12-13] MEDS: Enoxaparin Sodium 40 MG/0.4 ML SYRINGE SUBCUT (08:39)
[2020-12-13] MEDS: dexAMETHasone sod phosphate 4 MG/ML VIAL 6 MG IVPUSH (08:39)
[2020-12-13] MEDS: Milk of Magnesia 30 ML ORAL.SUSP PO (08:40)
[2020-12-13] MEDS: Insulin Glargine,Hum.rec.anlog 100 UNIT/ML 10 ML VIAL 20 UNIT SUBCUT (08:40)
--- NOTE | 2020-12-13 10:58 | P.PNIM_ITS ---
Subjective Subjective Date of Service: 12/13/20 Interval History: Seen in f/u for acute hypoxic respiratory failure d/t covid pneumonia. No respiratory difficulty at moment Review of Systems no fever sob Physical Exam Vital Signs: Vital Signs: Last Vital Signs Temp 97.6 F 12/13/20 07:34 Pulse 68 12/13/20 07:34 Resp 18 12/13/20 07:34 BP 129/73 12/13/20 07:34 Pulse Ox 92 12/13/20 07:34 Body Mass Index 31.4 General: AO X 2, no acute distress Resp: normal resp effor, speaks in full sentences, CVS: S1,S2,RRR GI: +BS, NT, no distention Skin: No rash Neuro: motor grossly intact Psych: flat Objective Data Current Medications Generic Name Dose Route Start Last Admin Trade Name Freq PRN Reason Stop Dose Admin Acetaminophen 650 mg 12/01/20 22:47 12/13/20 02:38 Acetaminophen 325 Mg Tablet PO 650 mg Q6H PRN Administration Pain, Mild (Pain Scale 1-3) Dexamethasone Sodium Phosphate 6 mg 12/02/20 09:00 12/13/20 08:39 Dexamethasone Sod Phosphate 4 Mg/Ml Vial IVPUSH 6 mg DAILY EKATERINA Administration Enoxaparin Sodium 40 mg 12/08/20 09:00 12/13/20 08:39 Enoxaparin Sodium 40 Mg/0.4 Ml Syringe SUBCUT 40 mg DAILY EKATERINA Administration Cefepime HCl 1 gm/ Sodium 50 mls @ 100 mls/hr 12/10/20 10:00 12/13/20 02:45 Chloride IV Infused Q8H EKATERINA Infusion Insulin Glargine 20 unit 12/07/20 10:30 12/13/20 08:40 Insulin Glargine,Hum.Rec.Anlog 100 Unit/Ml 10 Ml Vial SUBCUT 20 unit DAILY EKATERINA Administration Insulin Human Lispro 0 unit 12/12/20 16:30 12/13/20 08:33 Insulin Lispro 100 Unit/Ml 3 Ml Vial SUBCUT Not Given [facility] Protocol Magnesium Hydroxide 30 ml 12/02/20 09:00 12/13/20 08:40 Milk Of Magnesia 30 Ml Oral.Susp PO 30 ml DAILY EKATERINA Administration Morphine Sulfate 1 mg 12/11/20 21:38 12/12/20 22:39 Morphine Sulfate 2 Mg/Ml Cartridge IVPUSH 1 mg Q6H PRN Administration pain/discomfort Naloxone HCl 0.2 mg 12/08/20 11:17 Naloxone Hcl 0.4 Mg/Ml Vial IVPUSH Q2M PRN Excessive sedation or RR < 8 Pharmacy Consult 1 each 12/01/20 19:43 Consult Rx Perform Med Rec MISCELLANE ONCE PRN Consult order Sodium Chloride 3 ml 12/04/20 00:00 12/13/20 08:39 0.9 % Sodium Chloride Flush 3 Ml Syringe IVFLUSH 3 ml QSHIFT EKATERINA Administration Labs CBC & Chem 7: 12/11/20 12:43 12/12/20 09:12 Microbiology Microbiology Results: Microbiology 12/07/20 10:48 Blood - Venous Blood Culture - Final No growth after 5 days. 12/07/20 10:48 Blood - Venous Blood Culture - Final No growth after 5 days. 12/10/20 09:45 Blood - Venous Blood Culture - Preliminary No growth after 48 hours. 12/10/20 09:45 Blood - Venous Blood Culture - Preliminary No growth after 48 hours. 12/03/20 15:22 Blood - Central Line Blood Culture - Final Staphylococcus hominis Staphylococcus epidermidis Staphylococcus saprophyticus 12/03/20 15:22 Blood - Central Line Blood Culture - Final Staphylococcus hominis Staphylococcus epidermidis Staphylococcus saprophyticus 12/01/20 15:31 Blood - Venous Blood Culture - Final No growth after 5 days. 12/01/20 15:34 Blood - Venous Blood Culture - Final No growth after 5 days. 12/03/20 15:28 Sputum - Suctioned Gram Stain - Final 12/03/20 15:28 Sputum - Suctioned Sputum Culture - Final Assessment and Plan (1) Acute respiratory distress syndrome (ARDS) due to COVID-19 virus: Status: Acute (2) Acute respiratory failure with hypoxia: Status: Acute Assessment and Plan: Neuro: Probably has post icu delirium, improving Cardiac: 2D echocardiogram is essentially normal. Pulmonary: Acute hypoxic respiratory failure secondary to COVID-19 ARDS requiring ventilatory support, further complicated by pneumomediastinum and pneumothorax. Extubated 12/09/2020. Left pneumothorax resolved. Pneumomedi astinum improving. Continue to titrate off supplemental oxygen as tolerated. DC decadron has been on it since 12/02 Renal: No acute issues. Endo: Diabetes mellitus, continue on Lantus and sliding scale insulin protocol. GI: No acute issues. ID: Bacteremia with Staph epi, staph hominis and staph saproph from 12/03 samples--on Vanco and Cefepim , Vanco d/c'd on 12/12 after 3 days, to continue Cefepime for now Heme/Onc: No acute issues. Psych: No acute issues. Miscellaneous: No acute issues. PT eval tomorrow Prophylaxis: Lovenox, Diet: Pending swallow evaluation
[2020-12-13 11:06] VITALS: BP 113/68; PULSE 78; RESP 18; TEMP 36.2; O2SAT 95
[2020-12-13 11:11] LABS: Glucose, Whole Blood 178 mg/dL (60-115)
[2020-12-13] MEDS: Insulin Lispro 100 UNIT/ML 3 ML VIAL SUBCUT ×3 (11:44→22:40)
[2020-12-13 12:01] LABS: Hematocrit 37.9 % (42-52); Hemoglobin 12.2 g/dl (14.0-18.0); Mean Corpuscular HGB Conc 32.2 g/dl (31.0-36.0); Mean Corpuscular Hemoglobin 28.6 pg (27.0-33.0); Mean Corpuscular Volume 88.8 fL (80-98); Platelet Count 239 X10*3/uL (160-400); Red Blood Count 4.27 X10*6/uL (4.60-5.80); Red Cell Distribution Width 14.1 % (11.0-16.0); White Blood Count 14.3 X10*3/uL (4.8-10.8)
[2020-12-13 12:30] LABS: Anion Gap 15 (12-20); Blood Urea Nitrogen 37 mg/dL (9-16); Calcium 8.2 mg/dL (8.4-10.2); Carbon Dioxide 25 mmol/L (22-29); Chloride 100 mmol/L (96-108); Creatinine Clr Calc Pharmacy 132.5; Estimated Glomerular Filt Rate > 60; Glucose Random 198 mg/dL (60-115); Potassium 3.9 mmol/L (3.3-5.1); Sodium 136 mmol/L (135-145)
[2020-12-13 15:25] VITALS: BP 113/63; PULSE 79; RESP 18; TEMP 36.4; O2SAT 92
[2020-12-13 16:10] LABS: Glucose, Whole Blood 206 mg/dL (60-115)
[2020-12-13 19:09] VITALS: BP 109/73; PULSE 81; RESP 18; TEMP 36.4; O2SAT 94
[2020-12-13 20:41] LABS: Glucose, Whole Blood 190 mg/dL (60-115)
[2020-12-14] VITALS: BP 108/79; PULSE 78; RESP 18; TEMP 36.7; O2SAT 96
[2020-12-14] MEDS: cefEPime HCl 1 GM in 0.9 % Sodium Chloride 50 ML IV ×3 (03:14→18:15)
[2020-12-14 04:00] VITALS: BP 109/70; PULSE 68; RESP 18; TEMP 36.7; O2SAT 100
[2020-12-14 06:53] LABS: Hematocrit 40.6 % (42-52); Hemoglobin 12.8 g/dl (14.0-18.0); Mean Corpuscular HGB Conc 31.5 g/dl (31.0-36.0); Mean Corpuscular Hemoglobin 27.8 pg (27.0-33.0); Mean Corpuscular Volume 88.3 fL (80-98); Mean Platelet Volume 10.3 fL (9.4-12.4); Platelet Count 230 X10*3/uL (160-400); Red Cell Distribution Width 14.1 % (11.0-16.0)
[2020-12-14 07:13] LABS: Glucose, Whole Blood 117 mg/dL (60-115)
[2020-12-14 07:19] VITALS: BP 112/62; PULSE 67; RESP 20; TEMP 36.1; O2SAT 94
[2020-12-14] MEDS: dexAMETHasone sod phosphate 4 MG/ML VIAL 6 MG IVPUSH (09:35)
[2020-12-14] MEDS: 0.9 % Sodium Chloride Flush 3 ML SYRINGE IVFLUSH ×2 (09:35→16:31)
[2020-12-14] MEDS: Insulin Glargine,Hum.rec.anlog 100 UNIT/ML 10 ML VIAL 20 UNIT SUBCUT (09:35)
[2020-12-14] MEDS: Enoxaparin Sodium 40 MG/0.4 ML SYRINGE SUBCUT (09:35)
[2020-12-14] MEDS: Milk of Magnesia 30 ML ORAL.SUSP PO (09:36)
--- NOTE | 2020-12-14 09:58 | HO.PM.IMPN ---
Subjective Subjective Date of Service: 12/14/20 Interval History: Seen in f/u for acute hypoxic respiratory failure d/t covid pneumonia. Doing well, no sob Review of Systems no fever sob Physical Exam Vital Signs: Vital Signs: Last Vital Signs Temp 96.9 F 12/14/20 07:19 Pulse 67 12/14/20 07:19 Resp 20 12/14/20 07:19 BP 112/62 12/14/20 07:19 Pulse Ox 94 12/14/20 07:19 Body Mass Index 31.4 Const: Other: General: AO X 2, no acute distress Resp: normal resp effor, speaks in full sentences, CVS: S1,S2,RRR GI: +BS, NT, no distention Skin: No rash Neuro: motor grossly intact Psych: flat Objective Data Current Medications Generic Name Dose Route Start Last Admin Trade Name Freq PRN Reason Stop Dose Admin Acetaminophen 650 mg 12/01/20 22:47 12/13/20 02:38 Acetaminophen 325 Mg Tablet PO 650 mg Q6H PRN Administration Pain, Mild (Pain Scale 1-3) Dexamethasone Sodium Phosphate 6 mg 12/02/20 09:00 12/14/20 09:35 Dexamethasone Sod Phosphate 4 Mg/Ml Vial IVPUSH 6 mg DAILY EKATERINA Administration Enoxaparin Sodium 40 mg 12/08/20 09:00 12/14/20 09:35 Enoxaparin Sodium 40 Mg/0.4 Ml Syringe SUBCUT 40 mg DAILY EKATERINA Administration Cefepime HCl 1 gm/ Sodium 50 mls @ 100 mls/hr 12/10/20 10:00 12/14/20 09:36 Chloride IV 100 mls/hr Q8H EKATERINA Administration Insulin Glargine 20 unit 12/07/20 10:30 12/14/20 09:35 Insulin Glargine,Hum.Rec.Anlog 100 Unit/Ml 10 Ml Vial SUBCUT 20 unit DAILY EKATERINA Administration Insulin Human Lispro 0 unit 12/12/20 16:30 12/14/20 07:14 Insulin Lispro 100 Unit/Ml 3 Ml Vial SUBCUT Not Given [facility] Protocol Magnesium Hydroxide 30 ml 12/02/20 09:00 12/14/20 09:36 Milk Of Magnesia 30 Ml Oral.Susp PO 30 ml DAILY EKATERINA Administration Morphine Sulfate 1 mg 12/11/20 21:38 12/12/20 22:39 Morphine Sulfate 2 Mg/Ml Cartridge IVPUSH 1 mg Q6H PRN Administration pain/discomfort Naloxone HCl 0.2 mg 12/08/20 11:17 Naloxone Hcl 0.4 Mg/Ml Vial IVPUSH Q2M PRN Excessive sedation or RR < 8 Pharmacy Consult 1 each 12/01/20 19:43 Consult Rx Perform Med Rec MISCELLANE ONCE PRN Consult order Sodium Chloride 3 ml 12/04/20 00:00 12/14/20 09:35 0.9 % Sodium Chloride Flush 3 Ml Syringe IVFLUSH 3 ml QSHIFT EKATERINA Administration Labs CBC & Chem 7: 12/14/20 05:49 12/13/20 11:42 Microbiology Microbiology Results: Microbiology 12/07/20 10:48 Blood - Venous Blood Culture - Final No growth after 5 days. 12/07/20 10:48 Blood - Venous Blood Culture - Final No growth after 5 days. 12/10/20 09:45 Blood - Venous Blood Culture - Preliminary No growth after 48 hours. 12/10/20 09:45 Blood - Venous Blood Culture - Preliminary No growth after 48 hours. 12/03/20 15:22 Blood - Central Line Blood Culture - Final Staphylococcus hominis Staphylococcus epidermidis Staphylococcus saprophyticus 12/03/20 15:22 Blood - Central Line Blood Culture - Final Staphylococcus hominis Staphylococcus epidermidis Staphylococcus saprophyticus 12/01/20 15:31 Blood - Venous Blood Culture - Final No growth after 5 days. 12/01/20 15:34 Blood - Venous Blood Culture - Final No growth after 5 days. 12/03/20 15:28 Sputum - Suctioned Gram Stain - Final 12/03/20 15:28 Sputum - Suctioned Sputum Culture - Final Assessment and Plan (1) Acute respiratory distress syndrome (ARDS) due to COVID-19 virus: Status: Acute (2) Acute respiratory failure with hypoxia: Status: Acute Assessment and Plan: 70/M admitted with covid with resp failure that required intubation and now doing well Neuro: Probably has post icu delirium, improving Cardiac: 2D echocardiogram is essentially normal. Pulmonary: Acute hypoxic respiratory failure secondary to COVID-19 ARDS requiring ventilatory support, further complicated by pneumomediastinum and pneumothorax. Extubated 12/09/2020. Left pneumothorax resolved. Pneumomediastinum improving. Continue to titrate off supplemental oxygen as tolerated. DC decadron has been on it since 12/02 Renal: No acute issues. Endo: Diabetes mellitus, continue on Lantus and sliding scale insulin protocol. GI: No acute issues. ID: Bacteremia with Staph epi, staph hominis and staph saproph from 12/03 samples--on Vanco and Cefepim , Vanco d/c'd on 12/12 after 3 days, to continue Cefepime for now--will check with ID about options for dc Heme/Onc: No acute issues. Psych: No acute issues. Miscellaneous: No acute issues. PT eval tomorrow Prophylaxis: Lovenox, Diet: Pending swallow evaluation
[2020-12-14 10:01] LABS: Anion Gap 15 (12-20); Blood Urea Nitrogen 33 mg/dL (9-16); Calcium 8.3 mg/dL (8.4-10.2); Carbon Dioxide 24 mmol/L (22-29); Chloride 103 mmol/L (96-108); Creatinine Clr Calc Pharmacy 130.1; Estimated Glomerular Filt Rate > 60; Glucose Random 93 mg/dL (60-115); Potassium 3.7 mmol/L (3.3-5.1); Sodium 138 mmol/L (135-145)
[2020-12-14 11:10] LABS: Glucose, Whole Blood 184 mg/dL (60-115)
[2020-12-14 11:30] VITALS: BP 117/96; PULSE 69; RESP 20; TEMP 35.8; O2SAT 95
[2020-12-14] MEDS: Insulin Lispro 100 UNIT/ML 3 ML VIAL SUBCUT ×3 (11:47→22:21)
--- NOTE | 2020-12-14 11:53 | MHC.CM.PN ---
CM met with patient to discuss discharge plan since PT recommends STR. Patient referred CM to call his son. CM spoke with patient's son and explained discharge plan. Referral's made to [facility], [facility], and [facility]. Patient will need BLS transport. CM will continue to follow for discharge needs.
[2020-12-14 15:59] VITALS: BP 134/87; PULSE 105; RESP 18; TEMP 36.7; O2SAT 97
[2020-12-14 16:25] LABS: Glucose, Whole Blood 231 mg/dL (60-115)
[2020-12-14 19:39] VITALS: BP 117/87; PULSE 86; RESP 16; TEMP 36.6; O2SAT 98
[2020-12-14 19:57] LABS: Glucose, Whole Blood 195 mg/dL (60-115)
[2020-12-14 20:59] LABS: Hematocrit 40.9 % (42-52); Hemoglobin 12.8 g/dl (14.0-18.0)
[2020-12-15] VITALS (7 sets, daily range): BP systolic 111–133; BP diastolic 71–85; PULSE 61–85; RESP 18–20; TEMP 36–36.8; O2SAT 96–99
[2020-12-15] MEDS: 0.9 % Sodium Chloride Flush 3 ML SYRINGE IVFLUSH ×4 (01:54→20:35)
[2020-12-15] MEDS: cefEPime HCl 1 GM in 0.9 % Sodium Chloride 50 ML IV ×3 (02:01→17:48)
--- NOTE | 2020-12-15 05:05 | PM.EVENT ---
Event Note Date of Service: 12/15/20 Event Note: pt developed hematuria overnight - H&H stat obtained stable. vitals stable - will hold lovenox, sentd UA and consult Urology
[2020-12-15 07:55] LABS: Glucose, Whole Blood 160 mg/dL (60-115)
[2020-12-15] MEDS: Insulin Lispro 100 UNIT/ML 3 ML VIAL SUBCUT ×4 (08:32→20:35)
[2020-12-15] MEDS: Milk of Magnesia 30 ML ORAL.SUSP PO (08:32)
[2020-12-15] MEDS: dexAMETHasone sod phosphate 4 MG/ML VIAL 6 MG IVPUSH (08:33)
[2020-12-15] MEDS: Insulin Glargine,Hum.rec.anlog 100 UNIT/ML 10 ML VIAL 20 UNIT SUBCUT (10:39)
--- NOTE | 2020-12-15 10:48 | MHC.SLORD ---
Speech Language Pathology Order Status: COM[employer]ED [employer]MENT MECH[employer]IC checked in with RN this morning. Per RN, pt is tolerating current recommendations without difficulty. COMPRESSED G[employer] EQUIPMENT MECHANIC continues to recommend CHOPPED/ADVANCED (NDD3) solids and THIN liquids with PILLS WHOLE IN PUREE. Dysphagia therapy is no longer warranted at this level of care. If pt's condition changes or if COMPRESSED G[employer] EQUIPMENT MECHANIC can be of further assistance, please re-refer.
[2020-12-15 11:21] LABS: Glucose, Whole Blood 189 mg/dL (60-115)
--- NOTE | 2020-12-15 14:50 | MHC.CLN ---
F/U PO INTAKE 50% AVG DIET RX: 1800-DEATH SURVEYS CODER RECOMMENDED CHOPPED WITH THIN SEE REC DATED 12/14 WILL UPDATE DIET ORDER FOLLOWING
[2020-12-15] MEDS: Finasteride 5 MG TABLET PO (15:02)
--- NOTE | 2020-12-15 15:11 | HO.PM.IMPN ---
Subjective Subjective Date of Service: 12/15/20 Interval History: Seen in f/u for acute hypoxic respiratory failure d/t covid pneumonia. Hypoxia resolved. He had significant hematuria overnight, seen by urology and is recommending discontinuing lovenox Review of Systems no fever sob Physical Exam Vital Signs: Vital Signs: Last Vital Signs Temp 98 F 12/15/20 12:00 Pulse 85 12/15/20 12:00 Resp 20 12/15/20 12:00 BP 118/71 12/15/20 12:00 Pulse Ox 97 12/15/20 12:00 Body Mass Index 31.4 Const: Other: General: AO X 2, no acute distress Resp: normal resp effor, speaks in full sentences, CVS: S1,S2,RRR GI/: +BS, NT, no distention, no active hematu Skin: No rash Neuro: motor grossly intact Psych: flat Objective Data Current Medications Generic Name Dose Route Start Last Admin Trade Name Freq PRN Reason Stop Dose Admin Acetaminophen 650 mg 12/01/20 22:47 12/13/20 02:38 Acetaminophen 325 Mg Tablet PO 650 mg Q6H PRN Administration Pain, Mild (Pain Scale 1-3) Dexamethasone Sodium Phosphate 6 mg 12/02/20 09:00 12/15/20 08:33 Dexamethasone Sod Phosphate 4 Mg/Ml Vial IVPUSH 6 mg DAILY EKATERINA Administration Finasteride 5 mg 12/15/20 12:45 12/15/20 15:02 Finasteride 5 Mg Tablet PO 5 mg DAILY EKATERINA Administration Cefepime HCl 1 gm/ Sodium 50 mls @ 100 mls/hr 12/10/20 10:00 12/15/20 11:15 Chloride IV Infused Q8H EKATERINA Infusion Insulin Glargine 20 unit 12/07/20 10:30 12/15/20 10:39 Insulin Glargine,Hum.Rec.Anlog 100 Unit/Ml 10 Ml Vial SUBCUT 20 unit DAILY EKATERINA Administration Insulin Human Lispro 0 unit 12/12/20 16:30 12/15/20 11:49 Insulin Lispro 100 Unit/Ml 3 Ml Vial SUBCUT 2 unit QIDACHS EKATERINA Administration Protocol Magnesium Hydroxide 30 ml 12/02/20 09:00 12/15/20 08:32 Milk Of Magnesia 30 Ml Oral.Susp PO 30 ml DAILY EKATERINA Administration Morphine Sulfate 1 mg 12/11/20 21:38 12/12/20 22:39 Morphine Sulfate 2 Mg/Ml Cartridge IVPUSH 1 mg Q6H PRN Administration pain/discomfort Naloxone HCl 0.2 mg 12/08/20 11:17 Naloxone Hcl 0.4 Mg/Ml Vial IVPUSH Q2M PRN Excessive sedation or RR < 8 Pharmacy Consult 1 each 12/01/20 19:43 Consult Rx Perform Med Rec MISCELLANE ONCE PRN Consult order Sodium Chloride 3 ml 12/04/20 00:00 12/15/20 15:06 0.9 % Sodium Chloride Flush 3 Ml Syringe IVFLUSH 3 ml QSHIFT EKATERINA Administration Labs CBC & Chem 7: 12/14/20 20:41 12/14/20 05:49 Microbiology Microbiology Results: Microbiology 12/10/20 09:45 Blood - Venous Blood Culture - Final No growth after 5 days. 12/10/20 09:45 Blood - Venous Blood Culture - Final No growth after 5 days. 12/07/20 10:48 Blood - Venous Blood Culture - Final No growth after 5 days. 12/07/20 10:48 Blood - Venous Blood Culture - Final No growth after 5 days. 12/03/20 15:22 Blood - Central Line Blood Culture - Final Staphylococcus hominis Staphylococcus epidermidis Staphylococcus saprophyticus 12/03/20 15:22 Blood - Central Line Blood Culture - Final Staphylococcus hominis Staphylococcus epidermidis Staphylococcus saprophyticus 12/01/20 15:31 Blood - Venous Blood Culture - Final No growth after 5 days. 12/01/20 15:34 Blood - Venous Blood Culture - Final No growth after 5 days. 12/03/20 15:28 Sputum - Suctioned Gram Stain - Final 12/03/20 15:28 Sputum - Suctioned Sputum Culture - Final Assessment and Plan (1) Acute respiratory distress syndrome (ARDS) due to COVID-19 virus: Status: Acute (2) Acute respiratory failure with hypoxia: Status: Acute Assessment and Plan: 70/M admitted with covid with resp failure that required intubation and now doing well Neuro: Probably has post icu delirium, improving Cardiac: 2D echocardiogram is essentially normal. Pulmonary: Acute hypoxic respiratory failure secondary to COVID-19 ARDS requiring ventilatory support, further complicated by pneumomediastinum and pneumothorax. Extubated 12/09/2020. Left pneumothorax resolved. Pneumomediastinum improving. Continue to titrate off supplemental oxygen as tolerated. DC decadron has been on it since 12/02 Renal: No acute issues. Endo: Diabetes mellitus, continue on Lantus and sliding scale insulin protocol. GI: No acute issues. : Hematuria--No significant shift in H/H, Lovenox discontinued, Urology recommend monitoring ID: Bacteremia with Staph epi, staph hominis and staph saproph from 12/03 samples--on Vanco and Cefepim , Vanco d/c'd on 12/12 after 3 days. ID recommend DC Cefepime today Heme/Onc: No acute issues. Psych: No acute issues. Miscellaneous: No acute issues. PT eval tomorrow Prophylaxis: Lovenox, Diet: Pending swallow evaluation
[2020-12-15 16:02] LABS: Glucose, Whole Blood 249 mg/dL (60-115)
--- NOTE | 2020-12-15 19:59 | PC.NURSE ---
Te cleopatra blood with small clots from urethra after voiding. Dr. Duran to unit to see pt
[2020-12-15 20:08] LABS: Glucose, Whole Blood 229 mg/dL (60-115)
[2020-12-15 23:00] LABS: Hematocrit 38.9 % (42-52); Hemoglobin 12.3 g/dl (14.0-18.0); Mean Corpuscular HGB Conc 31.6 g/dl (31.0-36.0); Mean Corpuscular Hemoglobin 27.6 pg (27.0-33.0); Mean Corpuscular Volume 87.4 fL (80-98); Mean Platelet Volume 10.8 fL (9.4-12.4); Platelet Count 217 X10*3/uL (160-400); Red Blood Count 4.45 X10*6/uL (4.60-5.80); Red Cell Distribution Width 14.2 % (11.0-16.0); White Blood Count 12.3 X10*3/uL (4.8-10.8)
[2020-12-16 03:19] VITALS: BP 125/78; PULSE 67; RESP 16; TEMP 36.3; O2SAT 97
[2020-12-16] MEDS: cefEPime HCl 1 GM in 0.9 % Sodium Chloride 50 ML IV ×2 (03:31→10:33)
[2020-12-16 07:20] LABS: Glucose, Whole Blood 106 mg/dL (60-115)
[2020-12-16 07:50] VITALS: BP 103/71; PULSE 73; RESP 18; TEMP 37; O2SAT 97
[2020-12-16] MEDS: Insulin Glargine,Hum.rec.anlog 100 UNIT/ML 10 ML VIAL 20 UNIT SUBCUT (10:33)
[2020-12-16] MEDS: Milk of Magnesia 30 ML ORAL.SUSP PO (10:33)
[2020-12-16] MEDS: dexAMETHasone sod phosphate 4 MG/ML VIAL 6 MG IVPUSH (10:34)
[2020-12-16] MEDS: 0.9 % Sodium Chloride Flush 3 ML SYRINGE IVFLUSH (10:34)
[2020-12-16] MEDS: Finasteride 5 MG TABLET PO (10:34)
--- NOTE | 2020-12-16 11:09 | MHC.CM.PN ---
Patient will be discharged today to [facility] at 1pm via BLS transport. Patient, nurse and son Evaristokurt made aware.
[2020-12-16 11:11] LABS: Glucose, Whole Blood 207 mg/dL (60-115)
--- NOTE | 2020-12-16 11:29 | P.DS_ITS ---
DS: Providers Provider Date of Service: 01/12/21 Date of admission: 12/01/20 22:39 Discharge Date: 12/16/20 Primary care physician: Unknown Physician Consults: 12/01/20 22:47 Consult to Infectious Diseases Routine Consulting Provider: Chiqui Dey Reason for consultation: covid pna Has provider been notified: No 12/15/20 05:04 Consult to Urology Routine Consulting Provider: David Duran Reason for consultation: hematuria Has provider been notified: No DS: Diagnosis Discharge Diagnosis (1) Acute respiratory distress syndrome (ARDS) due to COVID-19 virus: Status: Resolved (2) Acute respiratory failure with hypoxia: Status: Resolved DS: Medications Discharge Medications Home Medications: Previous Rx's Medication Instructions Recorded metformin 500 mg tablet 500 mg PO BID #180 tab 07/13/20 blood sugar diagnostic #100 ea 10/19/20 azithromycin [Zithromax] 250 mg PO DAILY 4 Days #4 tab 11/28/20 codeine-guaifenesin 5 ml PO Q6H PRN #237 ml 11/28/20 doxycycline hyclate 100 mg PO BID #20 cap 11/28/20 DS: Summary Hospital Course Hospital Course: 70-year-old gentleman with underlying history of diabetes mellitus, IBS, renal stones, COVID positive on 11/22/2020, admitted on 12/02/2020 with progressive dyspnea, treated with dexamethasone, not a candidate for remdesivir. Hospital course complicated by progressive hypoxic respiratory failure requiring escalating levels of oxygen supplementation and necessitating transfer to intensive care unit for intubation on 12/03/2020. Hospital course further complicated by development of pneumomediastinum and left-sided pneumothorax noted on CT chest on 12/06/2020 and staphylococcal bacteremia. Extubated 12/09/2020 1. Acute hypoxic respiratory failure due to covid 19--Treated with steroid, antibiotics and oxygen. Unfortunately he got worse and was intubated on 12/03/20 and was succesfully extubated on 12/09/20 and has been completly weaned off oxygen and doing well. He was not a candidate for remdesevir. 2.Bacteremia-Polymicrobial bacteremia of unknown source. -Organism 1 Staphylococcus hominis Organism 2 Staphylococcus epidermidis Organism 3 Staphylococcus saprophyticus S hominis S epidermi S saprophy M.I.C. RX M.I.C. RX M.I.C. RX --------- --- --------- --- --------- --- Clindamycin <=0.25 S 4 R <=0.25 S Erythromycin >=8 R <=0.25 S >=8 R Levofloxacin <=0.12 S 0.25 S <=0.12 S Oxacillin <=0.25 S <=0.25 S <=0.25 S Penicillin-G <=0.03 S >=0.5 R <=0.03 S Tetracycline >=16 R <=1 S <=1 S Trimethoprim/Sulfamethoxazole <=10 S <=10 S <=10 S Patient has been treated with Vancomycin and Cefepim and under the direction of Dr. Dey and at this time no idication for further antibiotics. 3. Diabetes--He was on Metformin 500 mg bid at home but has been on Lantus 20 and Sliding scase. Fasting sugar of 106. At this point should continue Lantus and SSI and hold metformin 4. An episode of Hematuria--seen by Urologist Dr. Duran says probaly related to Lovenox and BPH and has prescribed Finesteride Time Spent with Patient Time attestation: Total time spent providing and/or coordinating discharge services: Discharge coordination time: Greater than 30 minutes Physical Exam Vital Signs: Vital Signs: Last Vital Signs Temp 98.6 F 12/16/20 07:50 Pulse 73 12/16/20 07:50 Resp 18 12/16/20 07:50 BP 103/71 12/16/20 07:50 Pulse Ox 97 12/16/20 07:50 Body Mass Index 31.4 General: AO X 3, no acute distress Resp: CTA bilateral CVS: S1,S2,RRR GI: +BS, NT, no distention Skin: No rash Neuro: motor grossly intact Psych: appropriate affect DS: Data Data Completed and Pending Labs on day of discharge: Laboratory Results - last 24 hr 12/15/20 12/15/20 12/15/20 15:58 20:05 22:17 WBC 12.3 H RBC 4.45 L Hgb 12.3 L Hct 38.9 L MCV 87.4 MCH 27.6 MCHC 31.6 RDW 14.2 Plt Count 217 MPV 10.8 Absolute Nucleated RBC 0.000 Nucleated RBC % (auto) 0.0 POC Glucose 249 H 229 H 12/16/20 12/16/20 07:13 11:01 WBC RBC Hgb Hct MCV MCH MCHC RDW Plt Count MPV Absolute Nucleated RBC Nucleated RBC % (auto) POC Glucose 106 207 H Discharge Plan Discharge Anticipated Discharge Date/Time: 12/16/20 11:12 Patient Disposition: Xfer SNF Discharge Diagnosis: covid Referrals: [facility] [Outside] Physician,Unknown [Primary Care Provider] - Discharge Medications: New acetaminophen 325 mg Tablet 650 mg PO Q6H PRN (Reason: Pain, Mild (Pain Scale 1-3)) Qty: 30 RF: 0 Lantus U-100 Insulin 100 unit/mL Solution 20 unit subcut DAILY Qty: 10 RF: 0 finasteride [Proscar] 5 mg Tablet 5 mg PO DAILY Qty: 20 RF: 0 insulin lispro [Humalog U-100 Insulin] 100 unit/mL Solution See Rx Instructions sliding scale dose .ROUTE .COMPLEX Qty: 10 RF: 0 Discontinued metformin 500 mg tablet 500 mg PO BID Qty: 180 RF: 8 codeine-guaifenesin 10-100 mg/5 mL liquid 5 ml PO Q6H PRN (Reason: cough) Qty: 237 RF: 0 azithromycin [Zithromax] 250 mg tablet 250 mg PO DAILY 4 Days Qty: 4 RF: 0 doxycycline hyclate 100 mg capsule 100 mg PO BID Qty: 20 RF: 0 No Action (DME) FreeStyle Lite Strips Strip See Rx Instructions .ROUTE .MEDSUPPLY Qty: 100 RF: 8 sucralfate 100 mg/mL Suspension 1 g PO QIDACHS 30 Days RF: 0 docusate sodium 100 mg Capsule 100 mg PO BID Qty: 60 RF: 0 bisacodyl 5 mg Tablet,Delayed Release (Dr/Ec) 5 mg PO DAILY Qty: 30 RF: 0 Eliquis 5 mg Tablet 5 mg PO BID Qty: 60 RF: 0 Mag&Al/Sim/Diphenhyd/Lidocaine [Magic Mouthwash] 10 ml PO Q4H PRN (Reason: oral pain) 30 Days RF: 2 omeprazole 40 mg capsule,delayed release(DR/EC) 40 mg PO BID Qty: 60 RF: 0 diphenhydramine HCl [Benadryl] 25 mg capsule 25 mg PO Q6H PRN (Reason: itching) Qty: 60 RF: 0 Discharge Orders: Discharge Order (Routine); Ordered 12/16/20 Ordered By: Simon Chino Diet: diabetic diet Activity on Discharge: As tolerated Stand Alone Forms: Patient Portal Discharge page Care Plan Goals: Full recovery fom covid Health Concerns: covid Plan of Treatment: Short term rehab Assessment: covid with weakness Discharge Date/Time: 12/16/20 13:18
[2020-12-16] MEDS: Insulin Lispro 100 UNIT/ML 3 ML VIAL SUBCUT (11:47)
[2020-12-16 12:00] VITALS: BP 122/72; PULSE 72; RESP 19; TEMP 36.6; O2SAT 96
--- NOTE | 2020-12-16 13:00 | PC.NURSE ---
Triple lumen to right ij removed without complication. continued to monitor his sao2 during and after procedure. Pt tolerated well. occlusive dressing applied.
== END 2020-12-16 13:18 | disposition skilled nursing facility (03) | DRG 870 ==
LOC: HO.ED 18:19 → HO.EDOVER 22:44 → HO.IMC 23:00 → HO.ICU 12-03 13:19 → HO.IMC 12-10 21:55
PROVIDERS: Internal Medicine; Internal Medicine Cardiovascular Disease; Internal Medicine Pulmonary Disease; Physician Assistant; Registered Nurse Community Health; Admitting Provider Internal Medicine; Emergency Provider Internal Medicine; PCP Internal Medicine; Visit Provider Internal Medicine
DX: A41.89 Other specified sepsis (principal); U07.1 COVID-19; J80 Acute respiratory distress syndrome; F05 Delirium due to known physiological condition; R31.9 Hematuria, unspecified; J98.2 Interstitial emphysema; E11.9 Type 2 diabetes mellitus without complications; K21.9 Gastro-esophageal reflux disease without esophagitis; K59.00 Constipation, unspecified; Z87.891 Personal history of nicotine dependence; Z79.4 Long term (current) use of insulin; Z79.899 Other long term (current) drug therapy
CPT/HCPCS: 36415; 36600; 71045; 71250; 71275; 74176; 80048; 80053; 80076; 80202; 81001; 82040; 82310; 82728; 82947; 83605; 83615; 83735; 84100; 84484; 85007; 85014; 85018; 85025; 85027; 85379; 85610; 85730; 86140; 87040; 87070; 87077; 87186; 87205; 87640; 87641; 92610; 93005; 93306; 94002; 94003; 94799; 96361; 96365; 96366; 96368; 96374; 96375; 97163; 97530; 99284; 99285; 99291; J0692; J0696; J1100; J1650; J1940; J2270; J2765; J3010; J3370; P9047; Q9967

== ENCOUNTER 2020-12-21 11:24 | Inpatient (IN) | payer MEDICARE, SELFPAY ==
[2020-12-21] VITALS (8 sets, daily range): BP systolic 100–124; BP diastolic 69–85; PULSE 92–108; RESP 15–22; TEMP 36.3–37.9; O2SAT 95–100; BMI 24.0
--- NOTE | ~2020-12-21 | CT_ITS ---
EXAMINATION: CT ANGIOGRAM OF THE CHEST WITH AND WITHOUT CONTRAST (CT PULMONARY ANGIOGRAM FOR PE) CLINICAL INFORMATION: Reason for Exam DVT COMPARISON: Chest radiograph 12/21/2020. CT 12/06/2020. TECHNIQUE: Prior to contrast administration, noncontrast localization images were obtained. Subsequently, multidetector volumetric imaging was performed from the thoracic inlet to below the diaphragms following the administration of 65 mL Omnipaque 350 intravenous contrast. No contrast reaction reported Sagittal, coronal, and MIP oblique sagittal reformatted images were obtained on the CT workstation, uploaded to PACS, and reviewed. This CT examination was performed using dose optimization techniques as appropriate, variously including the following: *Automated exposure control *Adjustment of mA and/or kV according to patient size (this includes techniques or standardized protocols for targeted exams where dose is matched to indication/reason for exam; i.e. extremities or head) *Use of iterative reconstruction technique Total exam dose-length product 401 mGy-cm FINDINGS: QUALITY OF STUDY/CONTRAST BOLUS: Satisfactory. PULMONARY ARTERIES: Extensive bilateral pulmonary emboli. On the left, there is no lobar level filling defect of the lower lobe with extension into segmental and subsegmental branches. The left upper lobe appears to be spared. On the right, minimal central thrombus with predominant lobar level filling defects of all 3 lobes. Distal extension. THORACIC AORTA: No aneurysm or dissection. LUNG: The central airways are patent. Patchy groundglass opacification is seen scattered throughout the lungs. Overall appearance of the lung parenchyma is significantly improved from 12/06/2020. Opacification is mostly peripheral. PLEURA: No pleural effusion or pneumothorax. MEDIASTINUM: Normal heart size. No pericardial effusion. No hilar or mediastinal lymphadenopathy. There is flattening of the interventricular septum suggesting right heart strain. CHEST WALL/AXILLA: No axillary or internal mammary lymphadenopathy. OSSEOUS STRUCTURES: No acute or suspicious osseous abnormality. Degenerative changes throughout the spine. DISH. UPPER ABDOMEN: Multiple gallstones are present. No gallbladder wall thickening. No reflux of contrast into the hepatic veins to suggest elevated right heart pressures. CT/CT angio chest PE protocol IMPRESSION: 1. Bilateral pulmonary emboli as detailed above with fairly Central positioning. Evidence of right heart strain. 2. Patchy groundglass opacification throughout both lungs peripherally. This is consistent with the previous clinical history of Covid. Aeration has improved from prior on 12/06/2020. This critical result was discussed with Yeyo Catalan MD, by telephone at 12/29/2020 1:32 AM and it was ascertained that the content and urgency of the report was understood at the time of direct communication. VTE: positive
--- NOTE | ~2020-12-21 | XR_ITS ---
EXAMINATION: XR CHEST CLINICAL INFORMATION: Abdominal pain COMPARISON: Chest radiographs 12/09/2020, 12/07/2020, 12/06/2020, 12/03/2020, 07/23/2018 TECHNIQUE: Portable upright AP view of the chest was obtained. FINDINGS: There is mild coarsening of the bronchovascular markings. The diffuse bilateral scattered airspace opacities noted on recent imaging have otherwise significantly decreased. There are some scattered residual opacities. There is no lobar or segmental airspace consolidation or effusion. The heart is normal in size. The hilar and mediastinal contours and visualized bony structures are without significant change. There is no pneumothorax or pneumomediastinum. No free air beneath the diaphragms. XR/XR chest 1V IMPRESSION: Diffuse bilateral airspace opacities on recent imaging significantly decreased. No pneumothorax, lobar or segmental airspace consolidation, or effusion.
--- NOTE | ~2020-12-21 | IR_ITS ---
EXAMINATION: IR VENOGRAPH IVC and filter placement CLINICAL INFORMATION: GI bleeding on heparin. Pulmonary embolus needs IV blood thinners. COMPARISON: None TECHNIQUE: Following explaining ultrasound and fluoroscopy-guided right common femoral approach IVC gram an infrarenal IVC filter procedure, benefits and risk, a written consent was obtained. Patient was placed supine on fluoroscopy table and preliminary ultrasound imaging was obtained through the right groin. An optimal site was selected and marked on the skin. The area was cleaned and draped with 2% Chlorhexidine solution. Under sterile ultrasound guidance a singlewall needle was utilized and right common femoral vein was punctured. After obtaining venous return 0.035 J-wire was advanced into the IVC and needle withdrawn. A 5 Cambodian Omni sinuses placed over the wire in the right common iliac vein and an IVC gram was obtained with 30 mL of nonionic contrast. Guidewire was then introduced through the catheter and guidewire removed. A 8 Cambodian dilator with sheath was advanced over the wire and placed at L2 vertebra. The dilator was removed and through the sheath IVC TrapEase filter was advanced with a pusher under fluoroscopy guidance and placed at the L2-L3 disc level. The sheath and the pusher were removed and complete hemostasis achieved at puncture site. Sterile dressing applied postprocedure. FINDINGS: On IVC gram there is a widely patent IVC without any intraluminal filling defect. Successful ultrasound-guided placement of infrarenal IVC filter without immediate complications. FLUOROSCOPY TIME: 3.1 minutes DOSE AREA PRODUCT: 2630 cGy-cm2 (microgray-meter squared) IR/IR IVC filter placement IMPRESSION: Successful ultrasound and fluoroscopy-guided right common femoral approach IVC gram and infrarenal IVC filter placement.
--- NOTE | ~2020-12-21 | CT_ITS ---
EXAMINATION: CT ABDOMEN AND PELVIS WITH CONTRAST CLINICAL INFORMATION: Abdominal pain COMPARISON: December 01, 2020 TECHNIQUE: Multidetector volumetric images were obtained from the superior aspect of the liver through the pubic symphysis following administration 85 mL of Omnipaque 350 intravenous contrast. Sagittal and coronal reformatted images were obtained on the technologist's workstation. Oral contrast: No This CT examination was performed using dose optimization techniques as appropriate, variously including the following: *Automated exposure control *Adjustment of mA and/or kV according to patient size (this includes techniques or standardized protocols for targeted exams where dose is matched to indication/reason for exam; i.e. extremities or head) *Use of iterative reconstruction technique DLP: 1057 mGy-cm FINDINGS: There is motion artifact throughout the study with some limitations due to this. LUNG BASES: There are bilateral patchy regions of groundglass opacity some of which are difficult to tell whether they may be related to motion artifact. Heart normal size. No pericardial effusion. There is a small right pleural effusion. This may be slightly larger than on prior study of December 01, 2020. LIVER, GALLBLADDER, AND BILIARY TREE: The liver is normal in size, shape, and attenuation. No focal hepatic lesion or biliary ductal dilatation is present. Cholelithiasis is present without evidence of acute cholecystitis. PANCREAS: Unremarkable. SPLEEN: Unremarkable. ADRENAL GLANDS: Unremarkable. KIDNEYS AND URETERS: The kidneys are normal in size, shape, and attenuation. No hydronephrosis, hydroureter, or calculi seen. No perinephric stranding. There appear to be left parapelvic cysts. BLADDER: Unremarkable. [place] catheter has been removed. GASTROINTESTINAL TRACT: No dilated loops of large or small bowel evident. No free air or free fluid. No pericolonic inflammatory change. Appendix is visualized and appears unremarkable.. There is sigmoid diverticulosis without evidence of acute diverticulitis. ABDOMINAL WALL: There is a small fat-containing umbilical hernia. There are small bilateral inguinal fat-containing hernias. LYMPH NODES: No lymphadenopathy identified. VASCULAR: Mild aortoiliac calcified plaque. No abdominal aortic aneurysm. Portal vein patent. PELVIC VISCERA: Unremarkable. OSSEOUS STRUCTURES: No suspicious destructive bony lesions identified. CT/CT abdomen pelvis w con IMPRESSION: Cholelithiasis without evidence of acute cholecystitis. No evidence of colitis. No evidence of obstructive uropathy. Bilateral regions of patchy groundglass disease within the lungs with small right pleural effusion. Left renal parapelvic cysts.
--- NOTE | ~2020-12-21 | US_ITS ---
EXAMINATION: US VENOUS ULTRASOUND WITH DOPPLER LOWER EXTREMITY, BILATERAL CLINICAL INFORMATION: Bilateral lower extremity swelling and pain COMPARISON: None TECHNIQUE: Ultrasound of the deep veins is performed from the hip to the calf with compression sonography and color and pulse Doppler assessment. Spectral analysis with color-flow imaging is performed. FINDINGS: RIGHT: Acute thrombus is present in the right profunda femoris vein. The right lower extremity deep venous system is otherwise unremarkable with normal venous compression and respiratory variation and augmented flow. The visualized common femoral vein, superficial femoral vein, popliteal vein, and the trifurcation region shows no evidence of deep venous thrombosis. There is no significant popliteal fossa cyst. LEFT: The left lower extremity is grossly abnormal with acute thrombus present in the left common femoral vein, left profunda femoris vein left great saphenous vein, left superficial femoral vein and the popliteal vein. Some flow is seen in the distal superficial femoral vein which appears arterialized. There is no significant popliteal fossa cyst. US/US venous duplex LE BI IMPRESSION: Bilateral lower extremity DVT, in the profunda femoris on the right much more extensive on left with thrombus in the popliteal vein to the level of the groin including the profunda femoris and greater saphenous vein. This critical result was discussed with Dr. Catalan at 9:30 PM on the evening of the exam and it was ascertained that the content and urgency of the report was understood at the time of direct communication.
--- NOTE | 2020-12-21 11:35 | ED.ABDPAIN ---
HPI - Abdominal Pain General Chief Complaint: Abdominal Pain Stated Complaint: ABD PAIN,VOMITING,CONSTIPATION PER SNF Time Seen by Provider: 12/21/20 11:35 Source: patient and EMS Mode of arrival: EMS Limitations: no limitations History of Present Illness HPI narrative: 70 yo male with GERD, DM recent prolonged admission with COVID resulting in PTX/respiratory failure, bacteremia DC on 12/16 to rehab at this time c/o diffuse abdominal pain n/v with dark blood and coffee ground emesis noted no ASA, AC therapy denies prior episodes of this in past, EMS noted seeing barbara blood in the emesis when they arrived to his room per RN report, patient denies eating in the past 3 days as well. MD elicited complaint: abdominal pain Pertinent past history: other (recent prolonged hospital stay) Onset (ago): day(s) (last night) Pain Consistency: constant Location: diffuse Severity: severe Quality: cramping and stabbing Radiation: none Migration to: no migration Exacerbating factors: vomiting and movement Relieving factors: nothing Context: other Associated symptoms: nausea, vomiting, constipation and hematemesis Related Data Previous Rx's Medication Instructions Recorded blood sugar diagnostic #100 ea 10/19/20 acetaminophen 650 mg PO Q6H PRN #30 tab 12/16/20 finasteride [Proscar] 5 mg PO DAILY #20 tab 12/16/20 insulin glargine [Lantus U-100 20 unit SUBCUT DAILY #10 ml 12/16/20 Insulin] insulin lispro [Humalog U-100 See Rx Instructions .ROUTE 12/16/20 Insulin] .COMPLEX #10 ml Allergies Allergy/AdvReac Type Severity Reaction Status Date / Time metronidazole [Flagyl] Allergy Unknown Insomnia Verified 07/28/20 14:07 TOURNIQUET FROM IV KIT Allergy Intermediate HIVES Uncoded 05/28/20 16:59 Review of Systems Review of Systems Constitutional : No Weight loss, No Fever, No Chills ENT/Mouth : No sore throat, No Rhinorrhea Eyes: No Swelling, No Redness Cardiovascular : No Chest Pain, No SOB, NoEdema Respiratory : No Cough, No Sputum, No Wheezing Gastrointestinal : Positive Nausea, Positive Vomiting, no Diarrhea, positive abdominal Pain, No Hematochezia, No Melena, pos constipation Genitourinary : No Dysuria, No Urinary Frequency, No Hematuria, No Urgency Musculoskeletal : No joint pain, No Myalgias, No Joint Swelling Skin : No Skin Lesions, No rash Neuro : No Weakness, No Numbness, No Dizziness, No Headache Psych : No Anxiety/Panic, No Depression Heme/Lymph: No Bruising, No Lymphadenopathy Endocrine : No Polyuria, No Polydipsia All other systems reviewed and are negative. Physical Exam Vital Signs: Vital Signs: Last Vital Signs Temp 97.4 F 12/21/20 15:57 Pulse 95 12/21/20 15:57 Resp 18 12/21/20 15:57 BP 123/74 12/21/20 15:57 Pulse Ox 96 12/21/20 15:57 Body Mass Index 24.0 Appearance: Alert. Oriented X3. Mild acute distress. Anxious in pain Eyes: Pupils equal, round and reactive to light. ENT: Pharynx dried dark material like coffee grounds on tongue and teeth moderate amount - patient and son note that this is what he was throwing up Neck: Normal inspection. Neck supple. CVS: Normal heart rate and rhythm. Pulses normal. Respiratory: No respiratory distress. Breath sounds normal. Abdomen: Soft and diffuse ttp distended Skin: Skin warm and dry. Normal skin color. Normal skin turgor. Extremities: No lower extremity edema. No calf ttp Neuro: Oriented X 3. No motor deficit. No sensory deficit. Course Course Course Narrative: admission requested 340pm no active GIB symptoms at this time but high risk message sent to Dr. Flores at 1523 - aware will follow along. MDM - Abdominal Pain MDM Narrative Medical decision making narrative: 70 yo male with GERD, DM recent prolonged admission with COVID resulting in PTX/respiratory failure, bacteremia DC on 12/16 to rehab at this time c/o diffuse abdominal pain n/v with dark blood and coffee ground emesis noted no ASA, AC therapy at this time will need labs, EKG, IVF, IV zofran, start on protonix drip, obtain CT scan given degree of pain could be stress ulcer vs tear Lab Data Result diagrams: 12/21/20 12:22 12/21/20 12:22 Labs: Lab Results 12/21/20 12/21/20 12/21/20 Range/Units 12:22 12:22 12:22 WBC 19.1 H (4.8-10.8) X10*3/uL RBC 4.75 (4.60-5.80) X10*6/uL Hgb 13.3 L (14.0-18.0) g/dl Hct 42.5 (42-52) % MCV 89.5 (80-98) fL MCH 28.0 (27.0-33.0) pg MCHC 31.3 (31.0-36.0) g/dl RDW 15.8 (11.0-16.0) % Plt Count 200 (160-400) X10*3/uL MPV 10.5 (9.4-12.4) fL Immature Gran % (Auto) 0.6 H (0.0-0.4) % Neut % (Auto) 81.8 H (45-73) % Lymph % (Auto) 11.4 L (20-40) % [place] % (Auto) 6.0 (2-11) % Eos % (Auto) 0.0 (0-4) % Baso % (Auto) 0.2 (0-2) % Lymph # (Auto) 2.2 (1.2-4.9) X10*3/uL [place] # (Auto) 1.2 (0.1-1.2) X10*3/uL Eos # (Auto) 0.0 (0.0-0.4) X10*3/uL Baso # (Auto) 0.0 (0.0-0.2) X10*3/uL Abs Immat Gran (auto) 0.11 H (0.00-0.03) X10*3/uL Absolute Neuts (auto) 15.7 H (2.0-8.3) X10*3/uL Absolute Nucleated RBC 0.000 (0.0-0.012) X10*3/uL Nucleated RBC % (auto) 0.0 (0.0-0.2) /100WBC PT (10.8-13.0) SEC INR (0.9-1.1) APTT (24.1-38.0) SEC Sodium 140 (135-145) mmol/L Potassium 4.9 D (3.3-5.1) mmol/L Chloride 105 (96-108) mmol/L Carbon Dioxide 22 (22-29) mmol/L Anion Gap 18 (12-20) BUN 42 H (9-16) mg/dL Creatinine 0.62 (0.5-1.4) mg/dL Estim Creat Clear Calc 110.8 Estimated GFR > 60 Random Glucose 254 H D (60-115) mg/dL Lactic Acid (0.5-2.0) mmol/L Calcium 8.9 D (8.4-10.2) mg/dL Magnesium (1.6-2.6) mg/dL Total Bilirubin (0.0-1.0) mg/dL Direct Bilirubin (0.0-0.5) mg/dL AST (5-37) U/L ALT (0-40) U/L Alkaline Phosphatase (39-117) U/L Troponin I High Sens (<3.5-35.0) ng/L Total Protein (6.5-8.0) g/dL Albumin (3.5-5.0) g/dL Lipase (8-78) U/L Stool Occult Blood (NEGATIVE) COVID-19 (ELEAZAR) Negative (Negative) COVID-19 Clin Com See Note Blood Type Antibody Screen 12/21/20 12/21/20 12/21/20 Range/Units 12:22 12:22 12:22 WBC (4.8-10.8) X10*3/uL RBC (4.60-5.80) X10*6/uL Hgb (14.0-18.0) g/dl Hct (42-52) % MCV (80-98) fL MCH (27.0-33.0) pg MCHC (31.0-36.0) g/dl RDW (11.0-16.0) % Plt Count (160-400) X10*3/uL MPV (9.4-12.4) fL Immature Gran % (Auto) (0.0-0.4) % Neut % (Auto) (45-73) % Lymph % (Auto) (20-40) % [place] % (Auto) (2-11) % Eos % (Auto) (0-4) % Baso % (Auto) (0-2) % Lymph # (Auto) (1.2-4.9) X10*3/uL [place] # (Auto) (0.1-1.2) X10*3/uL Eos # (Auto) (0.0-0.4) X10*3/uL Baso # (Auto) (0.0-0.2) X10*3/uL Abs Immat Gran (auto) (0.00-0.03) X10*3/uL Absolute Neuts (auto) (2.0-8.3) X10*3/uL Absolute Nucleated RBC (0.0-0.012) X10*3/uL Nucleated RBC % (auto) (0.0-0.2) /100WBC PT 14.9 H (10.8-13.0) SEC INR 1.3 H (0.9-1.1) APTT 32.1 (24.1-38.0) SEC Sodium (135-145) mmol/L Potassium (3.3-5.1) mmol/L Chloride (96-108) mmol/L Carbon Dioxide (22-29) mmol/L Anion Gap (12-20) BUN (9-16) mg/dL Creatinine (0.5-1.4) mg/dL Estim Creat Clear Calc Estimated GFR Random Glucose (60-115) mg/dL Lactic Acid 1.8 (0.5-2.0) mmol/L Calcium (8.4-10.2) mg/dL Magnesium 2.2 (1.6-2.6) mg/dL Total Bilirubin 1.1 H (0.0-1.0) mg/dL Direct Bilirubin 0.4 (0.0-0.5) mg/dL AST 21 (5-37) U/L ALT 21 (0-40) U/L Alkaline Phosphatase 122 H D (39-117) U/L Troponin I High Sens (<3.5-35.0) ng/L Total Protein 7.0 (6.5-8.0) g/dL Albumin 3.2 L (3.5-5.0) g/dL Lipase 23 (8-78) U/L Stool Occult Blood (NEGATIVE) COVID-19 (ELEAZAR) (Negative) COVID-19 Clin Com Blood Type Antibody Screen 12/21/20 12/21/20 12/21/20 Range/Units 12:22 12:24 13:09 WBC (4.8-10.8) X10*3/uL RBC (4.60-5.80) X10*6/uL Hgb (14.0-18.0) g/dl Hct (42-52) % MCV (80-98) fL MCH (27.0-33.0) pg MCHC (31.0-36.0) g/dl RDW (11.0-16.0) % Plt Count (160-400) X10*3/uL MPV (9.4-12.4) fL Immature Gran % (Auto) (0.0-0.4) % Neut % (Auto) (45-73) % Lymph % (Auto) (20-40) % [place] % (Auto) (2-11) % Eos % (Auto) (0-4) % Baso % (Auto) (0-2) % Lymph # (Auto) (1.2-4.9) X10*3/uL [place] # (Auto) (0.1-1.2) X10*3/uL Eos # (Auto) (0.0-0.4) X10*3/uL Baso # (Auto) (0.0-0.2) X10*3/uL Abs Immat Gran (auto) (0.00-0.03) X10*3/uL Absolute Neuts (auto) (2.0-8.3) X10*3/uL Absolute Nucleated RBC (0.0-0.012) X10*3/uL Nucleated RBC % (auto) (0.0-0.2) /100WBC PT (10.8-13.0) SEC INR (0.9-1.1) APTT (24.1-38.0) SEC Sodium (135-145) mmol/L Potassium (3.3-5.1) mmol/L Chloride (96-108) mmol/L Carbon Dioxide (22-29) mmol/L Anion Gap (12-20) BUN (9-16) mg/dL Creatinine (0.5-1.4) mg/dL Estim Creat Clear Calc Estimated GFR Random Glucose (60-115) mg/dL Lactic Acid (0.5-2.0) mmol/L Calcium (8.4-10.2) mg/dL Magnesium (1.6-2.6) mg/dL Total Bilirubin (0.0-1.0) mg/dL Direct Bilirubin (0.0-0.5) mg/dL AST (5-37) U/L ALT (0-40) U/L Alkaline Phosphatase (39-117) U/L Troponin I High Sens < 3.5 D (<3.5-35.0) ng/L Total Protein (6.5-8.0) g/dL Albumin (3.5-5.0) g/dL Lipase (8-78) U/L Stool Occult Blood NEGATIVE (NEGATIVE) COVID-19 (ELEAZAR) (Negative) COVID-19 Clin Com Blood Type O Positive Antibody Screen NEGATIVE ECG Data Attestation: I personally reviewed and interpreted this ECG as follows: ECG interpretation date: 12/21/20 ECG interpretation time: 12:08 Interpretation: Rate: 70 Rhythm: NSR [place]: left Normal P waves. Normal [place]. Normal QRS complex. ST T wave : inverted T waves in anterior lateral leads qTC: normal prior studies: changed from prior The study has been interpreted contemporaneously by me. . Critical Care Time Critical Care Time Critical Care Time: Yes Total Critical Care Time: 30 Attestation: IV morphine for pain, IV protonix gtt, type and screen, medical consult. I attest to this time spent taking care of the patient Discharge Plan Discharge Clinical Impression: Inverted T wave Leukocytosis Qualifiers: Leukocytosis type: unspecified Qualified Code(s): D72.829 - Elevated white blood cell count, unspecified Abdominal pain Qualifiers: Abdominal location: epigastric Qualified Code(s): R10.13 - Epigastric pain Hematemesis Qualifiers: Nausea presence: with nausea Qualified Code(s): K92.0 - Hematemesis Patient Disposition: Admitted As Inpatient [facility] Past Medical History Attestation statement: The following information was validated with the patient. Medical History Bacteremia due to Gram-positive bacteria Bacteremia due to Gram-positive bacteria BPH loc w urin obs/LUTS Chronic GERD COVID-19 Diabetes type 2, controlled Irritable bowel syndrome Nephrolithiasis Surgical History History of kidney stones Family History Family History Father Medical history unknown Mother Medical history unknown Social History Social History Household Members: None Housing: Apartment Alcohol intake: never Smoking Status: Never smoker Tobacco Type: Cigarette Use of substances other than those prescribed or required for medical reasons: No Advance Directives: Yes Advance Directives on File: Yes Advance Directives Date on File: 12/17/20 service: No Current occupational status: retired
--- NOTE | 2020-12-21 11:41 | ECG_ITS ---
Test Reason : ABDOMINAL PAIN Blood Pressure : / mmHG Vent. Rate : 100 BPM Atrial Rate : 100 BPM P-R Int : 152 ms QRS Dur : 086 ms QT Int : 332 ms P-R-T Axes : 051 -32 118 degrees QTc Int : 428 ms Normal sinus rhythm Left axis deviation T wave abnormality, consider lateral ischemia Abnormal ECG When compared with ECG of 01-DEC-2020 13:58, T wave inversion now evident in Lateral leads Referred By: Christy Jaffe Electronically Signed By:MIRNA PAYTON
[2020-12-21 12:34] LABS: MANUAL DIFF FLAG NO
[2020-12-21 12:42] LABS: Basophils Percent Auto 0.2 % (0-2); Hematocrit 42.5 % (42-52); Hemoglobin 13.3 g/dl (14.0-18.0); Imm Gran Abs Auto 0.11 X10*3/uL (0.00-0.03); Imm Gran Pct Auto 0.6 % (0.0-0.4); Lymphocytes Absolute Auto 2.2 X10*3/uL (1.2-4.9); Lymphocytes Percent Auto 11.4 % (20-40); Mean Corpuscular HGB Conc 31.3 g/dl (31.0-36.0); Mean Corpuscular Volume 89.5 fL (80-98); Mean Platelet Volume 10.5 fL (9.4-12.4); Monocytes Absolute Auto 1.2 X10*3/uL (0.1-1.2); Neutrophils Absolute Auto 15.7 X10*3/uL (2.0-8.3); Neutrophils Percent Auto 81.8 % (45-73); Platelet Count 200 X10*3/uL (160-400); Red Blood Count 4.75 X10*6/uL (4.60-5.80); Red Cell Distribution Width 15.8 % (11.0-16.0); White Blood Count 19.1 X10*3/uL (4.8-10.8)
[2020-12-21 12:43] LABS: OBS Int Ctl Valid YES; OBS1 NEGATIVE (NEGATIVE)
[2020-12-21 12:44] LABS: INTERNATIONAL NORM RATIO 1.3 (0.9-1.1); Prothrombin Time 14.9 SEC (10.8-13.0)
[2020-12-21 12:47] LABS: Partial Thromboplastin Time 32.1 SEC (24.1-38.0)
[2020-12-21] MEDS: ondansetron HCL 4 MG/2 ML VIAL IVPUSH (12:48)
[2020-12-21] MEDS: Pantoprazole Sodium 40 MG/10 ML VIAL IVPUSH (12:48)
[2020-12-21 12:58] LABS: COVID-19 Test Negative (Negative); IDNOW Serial# 9DD0AD1C
[2020-12-21 12:59] LABS: Lactic Acid 1.8 mmol/L (0.5-2.0)
[2020-12-21 13:03] LABS: Anion Gap 18 (12-20); Blood Urea Nitrogen 42 mg/dL (9-16); Calcium 8.9 mg/dL (8.4-10.2); Carbon Dioxide 22 mmol/L (22-29); Chloride 105 mmol/L (96-108); Creatinine Clr Calc Pharmacy 110.8; Estimated Glomerular Filt Rate > 60; Glucose Random 254 mg/dL (60-115); Potassium 4.9 mmol/L (3.3-5.1); Sodium 140 mmol/L (135-145)
[2020-12-21 13:07] LABS: Troponin-I High Sensitivity < 3.5 ng/L (<3.5-35.0)
[2020-12-21 13:09] LABS: Alanine Aminotransferase 21 U/L (0-40); Albumin Level 3.2 g/dL (3.5-5.0); Alkaline Phosphatase 122 U/L (39-117); Aspartate Amino Transferase 21 U/L (5-37); Bilirubin Direct 0.4 mg/dL (0.0-0.5); Bilirubin Total 1.1 mg/dL (0.0-1.0); Lipase 23 U/L (8-78); Magnesium 2.2 mg/dL (1.6-2.6)
[2020-12-21] MEDS: 0.9 % Sodium Chloride 500 ML IV (13:40)
[2020-12-21] MEDS: Pantoprazole Sodium 80 MG in 0.9 % Sodium Chloride 80 ML 10 MG IV ×2 (13:42→22:17)
[2020-12-21] MEDS: Piperacillin Sodium/Tazobactam 3.375 GM in 0.9 % Sodium Chloride 50 ML IV (13:44)
[2020-12-21] MEDS: Morphine Sulfate 4 MG/ML CARTRIDGE IVPUSH (13:44)
[2020-12-21] MEDS: iohexoL 350 MG/ML 100 ML INFUS..BTL IV (15:05)
--- NOTE | 2020-12-21 16:53 | PM.IMHP ---
History of Present Illness Date of Service: 12/21/20 Chief Complaint: Abdominal pain, hematemesis, physical deconditioning A 70 years old male with PMH DM, BPH, GERD who presents to the hospital with 3 days increased lethargy associated with abdominal pain and multiple episodes of hematemesis of dark color material over the last day. The patient was recently treated in the hospital for COVID-19 infection discharged from the hospital on December 16. Coming back to the hospital with worsening physical condition associated with abdominal pain in multiple episodes of coffee-ground emesis. Reported by EMS to have barbara blood in emesis as well. No episodes witnessed in the emergency. He reports his symptoms were associated with decreased oral intake as he does not feel good in his stomach. In the emergency CT abdomen pelvis was negative for any acute findings, CXR showing improvement in the infiltrate. Blood work within normal except for elevated WBCs with no clear source of infection. Admitted for further evaluation and treatment. Review of Systems Review of Systems: No fever, chills but reported increase weakness No chest pain, palpitation No shortness of breath or coughing Reporting generalized abdominal pain more epigastric with associated vomiting and decreased oral intake, hematemesis Patient wearing adult diapers No any rash or wounds PMFSH Medical History Bacteremia due to Gram-positive bacteria Bacteremia due to Gram-positive bacteria BPH loc w urin obs/LUTS Chronic GERD COVID-19 Diabetes type 2, controlled Irritable bowel syndrome Nephrolithiasis Family History Father Medical history unknown Mother Medical history unknown Surgical History History of kidney stones Social History Household Members: None Housing: Apartment Alcohol intake: never Smoking Status: Never smoker Tobacco Type: Cigarette Use of substances other than those prescribed or required for medical reasons: No Advance Directives: Yes Advance Directives on File: Yes Advance Directives Date on File: 12/17/20 service: No Current occupational status: retired Meds Allergies Allergy/AdvReac Type Severity Reaction Status Date / Time metronidazole [Flagyl] Allergy Unknown Insomnia Verified 07/28/20 14:07 TOURNIQUET FROM IV KIT Allergy Intermediate HIVES Uncoded 05/28/20 16:59 Active Medications: Current Medications Generic Name Dose Route Start Last Admin Trade Name Freq PRN Reason Stop Dose Admin Pantoprazole Sodium 80 mg/ 100 mls @ 10 mls/hr 12/21/20 12:15 12/21/20 13:42 Sodium Chloride IV 8 mg/hr .Q10H EKATERINA 10 mls/hr Administration 8 MG/HR Pharmacy Consult 1 each 12/21/20 11:39 Consult Rx Perform Med Rec MISCELLANE ONCE PRN Consult order Physical Exam Vital Signs and Narrative: Vital Signs: Last Vital Signs Temp 97.4 F 12/21/20 15:57 Pulse 95 12/21/20 15:57 Resp 18 12/21/20 15:57 BP 123/74 12/21/20 15:57 Pulse Ox 96 12/21/20 15:57 Body Mass Index 24.0 Const: Other: Constitutional : Alert, oriented, feels weak and tired, general deconditioning Neck : Normal inspection, Supple Cardiovascular : RRR, S1 S2, no lower extremity edema Respiratory : Decrease bilateral air entry, basis fine bilateral crackles, no wheezes or rhonchi Gastrointestinal: soft, lax, Normal bowel sounds, Non tender Skin : Warm/Dry, No rash noted Neurological : Alert & oriented x3, No focal deficit Results Labs CBC and Chem 7: 12/21/20 12:22 12/21/20 12:22 Labs: Laboratory Results - last 24 hr 12/21/20 12/21/20 12/21/20 12:22 12:22 12:22 MCV 89.5 MCH 28.0 MCHC 31.3 RDW 15.8 Plt Count 200 MPV 10.5 Immature Gran % (Auto) 0.6 H Neut % (Auto) 81.8 H Lymph % (Auto) 11.4 L [place] % (Auto) 6.0 Eos % (Auto) 0.0 Baso % (Auto) 0.2 Lymph # (Auto) 2.2 [place] # (Auto) 1.2 Eos # (Auto) 0.0 Baso # (Auto) 0.0 Abs Immat Gran (auto) 0.11 H Absolute Neuts (auto) 15.7 H Absolute Nucleated RBC 0.000 Nucleated RBC % (auto) 0.0 PT INR APTT Anion Gap 18 Estim Creat Clear Calc 110.8 Estimated GFR > 60 Random Glucose 254 H D Lactic Acid Calcium 8.9 D Magnesium Total Bilirubin Direct Bilirubin AST ALT Alkaline Phosphatase Troponin I High Sens Total Protein Albumin Lipase Stool Occult Blood COVID-19 (ELEAZAR) Negative COVID-19 Clin Com See Note Blood Type Antibody Screen 12/21/20 12/21/20 12/21/20 12:22 12:22 12:22 MCV MCH MCHC RDW Plt Count MPV Immature Gran % (Auto) Neut % (Auto) Lymph % (Auto) [place] % (Auto) Eos % (Auto) Baso % (Auto) Lymph # (Auto) [place] # (Auto) Eos # (Auto) Baso # (Auto) Abs Immat Gran (auto) Absolute Neuts (auto) Absolute Nucleated RBC Nucleated RBC % (auto) PT 14.9 H INR 1.3 H APTT 32.1 Anion Gap Estim Creat Clear Calc Estimated GFR Random Glucose Lactic Acid 1.8 Calcium Magnesium 2.2 Total Bilirubin 1.1 H Direct Bilirubin 0.4 AST 21 ALT 21 Alkaline Phosphatase 122 H D Troponin I High Sens Total Protein 7.0 Albumin 3.2 L Lipase 23 Stool Occult Blood COVID-19 (ELEAZAR) COVID-19 [facility] medical Com Blood Type Antibody Screen 12/21/20 12/21/20 12/21/20 12:22 12:24 13:09 MCV MCH MCHC RDW Plt Count MPV Immature Gran % (Auto) Neut % (Auto) Lymph % (Auto) [place] % (Auto) Eos % (Auto) Baso % (Auto) Lymph # (Auto) [place] # (Auto) Eos # (Auto) Baso # (Auto) Abs Immat Gran (auto) Absolute Neuts (auto) Absolute Nucleated RBC Nucleated RBC % (auto) PT INR APTT Anion Gap Estim Creat Clear Calc Estimated GFR Random Glucose Lactic Acid Calcium Magnesium Total Bilirubin Direct Bilirubin AST ALT Alkaline Phosphatase Troponin I High Sens < 3.5 D Total Protein Albumin Lipase Stool Occult Blood NEGATIVE COVID-19 (ELEAZAR) COVID-19 Clin Com Blood Type O Positive Antibody Screen NEGATIVE Imaging Radiologist's Impressions: Impressions Abdomen/Pelvis CT 12/21/20 11:40 IMPRESSION: Cholelithiasis without evidence of acute cholecystitis. No evidence of colitis. No evidence of obstructive uropathy. Bilateral regions of patchy groundglass disease within the lungs with small right pleural effusion. Left renal parapelvic cysts. Chest X-Ray 12/21/20 12:21 IMPRESSION: Diffuse bilateral airspace opacities on recent imaging significantly decreased. No pneumothorax, lobar or segmental airspace consolidation, or effusion. Assessment and Plan (1) Leukocytosis: Qualifiers: Leukocytosis type: unspecified Qualified Code(s): D72.829 - Elevated white blood cell count, unspecified Status: Acute (2) Abdominal pain: Qualifiers: Abdominal location: epigastric Qualified Code(s): R10.13 - Epigastric pain Status: Acute (3) Hematemesis: Qualifiers: Nausea presence: with nausea Qualified Code(s): K92.0 - Hematemesis Status: Acute (4) Physical deconditioning: Status: Acute A 70 years old male with PMH DM, BPH, GERD who presents to the hospital with 3 days increased lethargy associated with abdominal pain and multiple episodes of hematemesis of dark color material over the last day. Hematemesis Could be related to stress ulcer Start IV pantoprazole drip Monitor H&H To get GI evaluation the morning Keep on clear diet for now Leukocytosis No clear source of infection identified on CXR, CT abdomen Recent bacteremia of unclear etiology Pending urine analysis Patient with recent multi organism bacteremia To start Levaquin daily Physical deconditioning Related to recent COVID-19 infection To do physical therapy Diabetes type 2 Decrease Lantus to 12 units a day SSI DVT PPX SCDs
[2020-12-21] MEDS: levoFLOXacin/D5W 500 MG/100 ML PIGGYBACK 100 MG IV (20:39)
[2020-12-21 21:40] LABS: Glucose, Whole Blood 226 mg/dL (60-115)
[2020-12-21] MEDS: Insulin Lispro 100 UNIT/ML 3 ML VIAL SUBCUT (22:17)
[2020-12-22] VITALS (7 sets, daily range): BP systolic 101–120; BP diastolic 69–78; PULSE 74–93; RESP 16–21; TEMP 36.1–36.7; O2SAT 95–96; BMI 24.4
[2020-12-22] MEDS: 0.9 % Sodium Chloride Flush 3 ML SYRINGE IVFLUSH ×3 (01:20→16:07)
[2020-12-22 07:23] LABS: MANUAL DIFF FLAG NO
[2020-12-22 07:24] LABS: Glucose, Whole Blood 158 mg/dL (60-115)
[2020-12-22 07:26] LABS: Basophils Percent Auto 0.1 % (0-2); Eosinophils Absolute Auto 0.1 X10*3/uL (0.0-0.4); Eosinophils Percent Auto 0.7 % (0-4); Hematocrit 37.6 % (42-52); Hemoglobin 11.7 g/dl (14.0-18.0); Imm Gran Abs Auto 0.08 X10*3/uL (0.00-0.03); Imm Gran Pct Auto 0.6 % (0.0-0.4); Lymphocytes Absolute Auto 2.3 X10*3/uL (1.2-4.9); Lymphocytes Percent Auto 16.8 % (20-40); Mean Corpuscular HGB Conc 31.1 g/dl (31.0-36.0); Mean Corpuscular Hemoglobin 28.4 pg (27.0-33.0); Mean Corpuscular Volume 91.3 fL (80-98); Monocytes Absolute Auto 0.7 X10*3/uL (0.1-1.2); Monocytes Percent Auto 5.3 % (2-11); Neutrophils Absolute Auto 10.5 X10*3/uL (2.0-8.3); Neutrophils Percent Auto 76.5 % (45-73); Platelet Count 145 X10*3/uL (160-400); Red Blood Count 4.12 X10*6/uL (4.60-5.80); Red Cell Distribution Width 15.9 % (11.0-16.0); White Blood Count 13.8 X10*3/uL (4.8-10.8)
[2020-12-22 07:53] LABS: Anion Gap 14 (12-20); Blood Urea Nitrogen 31 mg/dL (9-16); Carbon Dioxide 22 mmol/L (22-29); Chloride 108 mmol/L (96-108); Creatinine Clr Calc Pharmacy 124.9; Estimated Glomerular Filt Rate > 60; Glucose Random 173 mg/dL (60-115); Potassium 4.2 mmol/L (3.3-5.1); Sodium 140 mmol/L (135-145)
[2020-12-22 08:00] LABS: Calcium 8.2 mg/dL (8.4-10.2)
[2020-12-22] MEDS: Pantoprazole Sodium 80 MG in 0.9 % Sodium Chloride 80 ML 10 MG IV ×2 (08:40→17:48)
--- NOTE | 2020-12-22 09:05 | PM.EVENT ---
Event Note Date of Service: 12/22/20 Event Note: GI Consult-Full note dictated. Hx via patient, EMR, and RN Imp: 70 yo male known to me with a history of chronic abdominal discomfort. He had an EGD in 08/2019 with gastritis, H.pylori(s/p treatment with triple therapy), duodenitis, and small hiatal hernia. He now presents with apparent UGI bleeding with N/V, coffee grounds emesis, and ? of hematemesis. He has been stable since arrival in the ER. He denies any new GI sx. His abdominal exam is benign. Diff dx: PUD, Akila-Flores tear, gastritis, esophagitis. Rec: Continue PPI, F/U Hgb, EGD with MAC 4/14 AM--full consent obtained from him for this, including risks of bleeding and perforation. Please call me if he has any active bleeding. D/W patient in detail and he is comfortable with this plan. Thanks
[2020-12-22 09:10] LABS: Glucose, Whole Blood 186 mg/dL (60-115)
[2020-12-22] MEDS: Insulin Glargine,Hum.rec.anlog 100 UNIT/ML 10 ML VIAL 12 UNIT SUBCUT (09:28)
[2020-12-22] MEDS: Insulin Lispro 100 UNIT/ML 3 ML VIAL SUBCUT (09:28)
[2020-12-22] MEDS: Docusate Sodium 100 MG CAPSULE PO (09:29)
[2020-12-22] MEDS: Finasteride 5 MG TABLET PO (09:32)
--- NOTE | 2020-12-22 10:01 | CONS_ITS ---
DATE OF SERVICE: 12/22/2020 REQUESTING PHYSICIAN: Stevie Light MD REASON FOR CONSULTATION: Upper GI bleeding. HISTORY OF PRESENT ILLNESS: This has been obtained for the patient, the medical record, and his nurse. The patient is a 70-year-old male known to me from previous office visits with a history of chronic abdominal pain. I last saw him in August 2020. He had an upper endoscopy in May 2019, with the finding of some gastritis, H pylori, duodenitis, small hiatal hernia, and mild changes of reflux. The H pylori was treated with triple therapy. He has no history of ulcer disease. His abdominal discomfort has been somewhat refractory to medical therapy and all imaging studies have otherwise been negative. He does have a history of gallstones, which were evaluated by Dr. Chandler, including a negative HIDA scan, and it was not felt the gallstones were contributing to the abdominal pain and therefore, he did not undergo cholecystectomy. In any event, since I last saw him, he has had continued abdominal discomfort. He came to the ER with a presentation of some coffee-ground emesis and reported hematemesis. Since arrival in the ER, he has had no further signs of bleeding. He does have some constipation and has not noticed any melena nor hematochezia. He does have chronic abdominal discomfort and bloating, but no other new GI symptoms. He denies any dysphagia. Since arrival in the ER, he has been hemodynamically stable. His initial hemoglobin was 13.3 compared to 12.3 on December 15. Hemoglobin today is 11.7. He denies use of any aspirin nor NSAIDs. He does not smoke nor use any significant amounts of alcohol. MEDICATIONS: At home included acetaminophen, Proscar, insulin. PAST MEDICAL HISTORY: Chronic abdominal discomfort as above. Upper endoscopy as above. Colonoscopy in 2014, with removal of a small tubular adenoma and similar findings in 2019. He has a history of diabetes, hypertension, and kidney stones. Anxiety. Overactive bladder and enlarged prostate. He denies any history of NC nor stroke. He had negative cardiac catheterization in 2019, with Dr. Guillaume. COVID infection. PAST SURGICAL HISTORY: He denies any surgeries. SOCIAL HISTORY: He is . He does not smoke nor use any significant amounts of alcohol. FAMILY HISTORY: Noncontributory. REVIEW OF SYSTEMS: CONSTITUTIONAL: Some anxiety and fatigue, as well as the chronic abdominal discomfort. CARDIAC: No chest pain. PULMONARY: No coughing or hemoptysis. GI: As above. URINARY: No dysuria. No hematuria. PHYSICAL EXAMINATION: GENERAL: The patient is a pleasant alert, comfortable male, lying on a stretcher. He is in no distress. SKIN: Warm and dry. Anicteric sclerae. NECK: Supple. ABDOMEN: Soft, nondistended, nontender without organomegaly or mass. EXTREMITIES: Without edema. LABORATORY DATA: As above. White blood cell count 13.8, hemoglobin 11.7, MCV 91, platelets 145,000. PT 14.9 with INR 1.3. Normal electrolytes. BUN today was 31 compared to 42 yesterday. He did have a CAT scan of the abdomen and pelvis which describes his known gallstones but without evidence of cholecystitis. There is no evidence of any GI tract pathology. His COVID test done yesterday was negative. He did have a positive COVID test in mid November. IMPRESSION: Given the patient's presentation with what appears to be a self-limited upper GI bleed. I suspect this represents either bleeding from the Akila-Flores tear, esophagitis, ulcer disease, and/or gastritis. At this point, he appears stable. Given his last upper endoscopy being over a year ago, I would recommend a repeat upper endoscopy tomorrow with monitored anesthesia care. Full consent obtained from him for this, including risks of bleeding and perforation. In the meantime, I will continue with PPI therapy and follow his hemoglobin. Please contact me if he has any recurrent bleeding prior to that. This has been discussed with the patient in detail and he is comfortable with this plan. Full consent obtained for the endoscopy, including risks of bleeding and perforation. Thank you for this consultation. MD MONIKA Jacob/THAO / [phone] MARISA
--- NOTE | 2020-12-22 10:16 | HO.PM.IMPN ---
Subjective Subjective Date of Service: 12/22/20 Interval History: the patient was seen and evaluated this morning Laying in bed, feels tired with no reported vomiting overnight Denies any fever, chills or shortness of breath No reported other overnight events. Review of Systems No fever, chills but reported increase weakness No chest pain, palpitation No shortness of breath or coughing Reporting generalized abdominal pain more epigastric with associated vomiting and decreased oral intake, no reported hematemesis overnight Patient wearing adult diapers No any rash or wounds Physical Exam Vital Signs: Vital Signs: Last Vital Signs Temp 98.1 F 12/22/20 09:01 Pulse 89 12/22/20 09:01 Resp 18 12/22/20 09:01 BP 114/78 12/22/20 09:01 Pulse Ox 96 12/22/20 09:01 Body Mass Index 24.0 Const: Other: Constitutional : Alert, oriented, feels weak and tired, general deconditioning Neck : Normal inspection, Supple Cardiovascular : RRR, S1 S2, no lower extremity edema Respiratory : Decrease bilateral air entry, basis fine bilateral crackles, no wheezes or rhonchi Gastrointestinal: soft, lax, Normal bowel sounds, Non tender Skin : Warm/Dry, No rash noted Neurological : Alert & oriented x3, No focal deficit Objective Data Current Medications Generic Name Dose Route Start Last Admin Trade Name Freq PRN Reason Stop Dose Admin Acetaminophen 650 mg 12/21/20 18:19 Acetaminophen 325 Mg Tablet PO Q6H PRN Pain, Mild (Pain Scale 1-3) Acetaminophen 650 mg 12/21/20 18:19 Acetaminophen 325 Mg Tablet PO Q6H PRN Pain, Mild (Pain Scale 1-3) Docusate Sodium 100 mg 12/21/20 21:00 12/22/20 09:29 Docusate Sodium 100 Mg Capsule PO 100 mg BID EKATERINA Administration Finasteride 5 mg 12/22/20 09:00 12/22/20 09:32 Finasteride 5 Mg Tablet PO 5 mg DAILY EKATERINA Administration Pantoprazole Sodium 80 mg/ 100 mls @ 10 mls/hr 12/21/20 12:15 12/22/20 08:40 Sodium Chloride IV 8 mg/hr .Q10H EKATERINA 10 mls/hr Administration 8 MG/HR Levofloxacin 500 mg in 100 mls @ 100 mls/hr 12/21/20 19:00 12/21/20 22:10 Levaquin IV Infused Q24H EKATERINA Infusion Insulin Glargine 12 unit 12/22/20 09:00 12/22/20 09:28 Insulin Glargine,Hum.Rec.Anlog 100 Unit/Ml 10 Ml Vial SUBCUT 12 unit DAILY EKATERINA Administration Insulin Human Lispro 0 unit 12/21/20 21:00 12/22/20 09:28 Insulin Lispro 100 Unit/Ml 3 Ml Vial SUBCUT 2 unit QIDACHS EKATERIAN Administration Protocol Ondansetron HCl 4 mg 12/21/20 18:19 Ondansetron Hcl 4 Mg/2 Ml Vial IVPUSH Q8H PRN Nausea and Vomiting Pharmacy Consult 1 each 12/21/20 11:39 Consult Rx Perform Med Rec MISCELLANE ONCE PRN Consult order Sodium Chloride 3 ml 12/22/20 00:00 12/22/20 08:40 0.9 % Sodium Chloride Flush 3 Ml Syringe IVFLUSH 3 ml QSHIFT EKATERINA Administration Labs CBC & Chem 7: 12/22/20 07:00 12/22/20 07:00 Microbiology Microbiology Results: Microbiology 12/21/20 12:22 Blood - Venous Blood Culture - Preliminary No growth after 24 hours. Assessment and Plan (1) Leukocytosis: Status: Acute (2) Abdominal pain: Status: Acute (3) Hematemesis: Status: Acute (4) Physical deconditioning: Status: Acute Assessment and Plan: A 70 years old male with PMH DM, BPH, GERD who presents to the hospital with 3 days increased lethargy associated with abdominal pain and multiple episodes of hematemesis of dark color material over the last day. Hematemesis Could be related to stress ulcer Continue IV pantoprazole drip Monitor H&H GI input appreciated, to do EGD with MAC tomorrow morning Keep on clear diet for now Acute on chronic anemia Hemoglobin dropped to 11.7 from 13.3 yesterday No significant hematemesis overnight continue to monitor H&H Leukocytosis No clear source of infection identified on CXR, CT abdomen No fever, no chills Reason could be secondary to vomiting Recent bacteremia of unclear etiology Pending urine analysis Patient with recent multi organism bacteremia the seems to be cleared. Discontinue antibiotic and monitor for now Physical deconditioning Related to recent COVID-19 infection To do physical therapy Diabetes type 2 Put his daily dose Lantus of 20 SSI DVT PPX SCDs
[2020-12-22 10:55] LABS: Glucose Urine UA NEG (NEG); Leukocyte Esterase Urine NEG (NEG); Nitrite Urine NEG (NEG); PH 5.5 (5.0-8.0); Specific Gravity - Urine 1.025 (1.005-1.025); Urine Blood 1+ (NEG); Urine Ketones 15 MG/DL (NEG); Urine Protein TRACE MG/DL (NEG-TRACE)
[2020-12-22 10:56] LABS: Appearance Urine HAZY; Color Urine AMBER
[2020-12-22 11:12] LABS: Mucus Urine TRACE /LPF; Squamous Epithelial Cell Urine 1+ /LPF; WBC Urine 0-2 /HPF (0-4)
[2020-12-22 11:49] LABS: Glucose, Whole Blood 166 mg/dL (60-115)
--- NOTE | 2020-12-22 14:11 | MHC.CM.PN ---
Pt is from [facility]. per PT's recommendations and pt's choice he would like to return there when medically stable. a ref. has been made to [facility]. cm to cont. to follow.
[2020-12-22 16:03] LABS: Glucose, Whole Blood 124 mg/dL (60-115)
[2020-12-22] MEDS: ondansetron HCL 4 MG/2 ML VIAL IVPUSH (16:06)
[2020-12-22] MEDS: Morphine Sulfate 2 MG/ML CARTRIDGE 1 MG IVPUSH (16:34)
[2020-12-22 17:35] LABS: Glucose, Whole Blood 158 mg/dL (60-115)
[2020-12-22 20:38] LABS: Glucose, Whole Blood 141 mg/dL (60-115)
[2020-12-23] VITALS (10 sets, daily range): BP systolic 95–124; BP diastolic 54–89; PULSE 69–93; RESP 14–20; TEMP 36.2–36.9; O2SAT 96–98; BMI 24.4
[2020-12-23] MEDS: Pantoprazole Sodium 80 MG in 0.9 % Sodium Chloride 80 ML 10 MG IV ×2 (03:58→14:11)
[2020-12-23 07:11] LABS: Anion Gap 13 (12-20); Blood Urea Nitrogen 26 mg/dL (9-16); Calcium 8.5 mg/dL (8.4-10.2); Carbon Dioxide 21 mmol/L (22-29); Chloride 109 mmol/L (96-108); Creatinine Clr Calc Pharmacy 132.1; Estimated Glomerular Filt Rate > 60; Glucose Fasting 127 mg/dL (60-99); Potassium 4.1 mmol/L (3.3-5.1); Sodium 139 mmol/L (135-145)
[2020-12-23 07:24] LABS: Glucose, Whole Blood 133 mg/dL (60-115)
[2020-12-23 07:34] LABS: Hematocrit 36.6 % (42-52); Hemoglobin 11.3 g/dl (14.0-18.0); Mean Corpuscular HGB Conc 30.9 g/dl (31.0-36.0); Mean Corpuscular Volume 90.8 fL (80-98); Mean Platelet Volume 11.3 fL (9.4-12.4); Platelet Count 123 X10*3/uL (160-400); Red Blood Count 4.03 X10*6/uL (4.60-5.80); Red Cell Distribution Width 15.6 % (11.0-16.0); White Blood Count 10.6 X10*3/uL (4.8-10.8)
[2020-12-23] MEDS: Insulin Glargine,Hum.rec.anlog 100 UNIT/ML 10 ML VIAL 12 UNIT SUBCUT (07:49)
[2020-12-23] MEDS: 0.9 % Sodium Chloride Flush 3 ML SYRINGE IVFLUSH ×2 (07:49→14:04)
--- NOTE | 2020-12-23 10:21 | HO.ANESPROP2 ---
HPI - Anesthesia Eval Consult details Narrative: 70 yo male patient here for EGD PMFSH Active Problems Active Problems: All Active Problems (Updated 12/21/20 @ 17:03 by Stevie Light MD) Physical deconditioning (Acute) Leukocytosis (Acute) Abdominal pain (Acute) Inverted T wave (Acute) Hematemesis (Acute) Acute respiratory distress syndrome (ARDS) due to COVID-19 virus (Acute) Pneumomediastinum (Acute) Acute pneumothorax (Acute) Bacteremia due to Gram-positive bacteria (Acute) ARDS (adult respiratory distress syndrome) (Acute) Sepsis (Acute) Constipation (Acute) Acute respiratory failure with hypoxia (Acute) Pneumonia due to COVID-19 virus (Acute) Hypoxia (Acute) Diabetes mellitus (Acute) Chronic GERD (Acute) Past Medical History Medical History Bacteremia due to Gram-positive bacteria Bacteremia due to Gram-positive bacteria BPH loc w urin obs/LUTS Chronic GERD COVID-19 Diabetes type 2, controlled Irritable bowel syndrome Nephrolithiasis Family History Family History Father Medical history unknown Mother Medical history unknown Family history of problems with anesthesia: No Surgical History Surgical History History of kidney stones History of Problems with Anesthesia: No Social History Social History Household Members: None Housing: Retirement Alcohol intake: never Smoking Status: Never smoker Tobacco Type: Cigarette Use of substances other than those prescribed or required for medical reasons: No Currently Displaying Signs/Symptoms of Drug Intoxication Withdrawal: No Have you been hit, kicked, punched, or otherwise hurt by someone within the past year? If so, by whom?: No Do you feel safe in your current relationship?: No Current Relationship Is there a partner from a previous relationship who is making you feel unsafe now?: No Are you made to feel afraid or neglected: No Advance Directives: Yes Advance Directives on File: Yes Advance Directives Date on File: 12/17/20 Do you have thoughts of harming others: None Do you have a plan to hurt others: No Plan Recently lost weight without trying: Unsure service: No Current occupational status: retired Meds Allergies Allergy/AdvReac Type Severity Reaction Status Date / Time metronidazole [Flagyl] Allergy Unknown Insomnia Verified 07/28/20 14:07 TOURNIQUET FROM IV KIT Allergy Intermediate HIVES Uncoded 05/28/20 16:59 Active Medications: Current Medications Generic Name Dose Route Start Last Admin Trade Name Freq PRN Reason Stop Dose Admin Acetaminophen 650 mg 12/21/20 18:19 Acetaminophen 325 Mg Tablet PO Q6H PRN Pain, Mild (Pain Scale 1-3) Acetaminophen 650 mg 12/21/20 18:19 Acetaminophen 325 Mg Tablet PO Q6H PRN Pain, Mild (Pain Scale 1-3) Docusate Sodium 100 mg 12/21/20 21:00 12/23/20 07:50 Docusate Sodium 100 Mg Capsule PO Not Given BID [facility] Finasteride 5 mg 12/22/20 09:00 12/23/20 07:50 Finasteride 5 Mg Tablet PO Not Given DAILY [facility] Pantoprazole Sodium 80 mg/ 100 mls @ 10 mls/hr 12/21/20 12:15 12/23/20 03:58 Sodium Chloride IV 8 mg/hr .Q10H EKATERINA 10 mls/hr Administration 8 MG/HR Lactated Ringer's 1,000 mls @ 50 mls/hr 12/23/20 10:30 Lr IV .Q20H [facility] Insulin Glargine 12 unit 12/22/20 09:00 12/23/20 07:49 Insulin Glargine,Hum.Rec.Anlog 100 Unit/Ml 10 Ml Vial SUBCUT 12 unit DAILY [facility] Administration Insulin Human Lispro 0 unit 12/21/20 21:00 12/23/20 07:25 Insulin Lispro 100 Unit/Ml 3 Ml Vial SUBCUT Not Given QIDACHS [facility] Protocol Morphine Sulfate 1 mg 12/22/20 16:13 12/22/20 16:34 Morphine Sulfate 2 Mg/Ml Cartridge IVPUSH 1 mg Q4H PRN Administration Pain, Severe (Pain Scale 7-10) Ondansetron HCl 4 mg 12/21/20 18:19 12/22/20 16:06 Ondansetron Hcl 4 Mg/2 Ml Vial IVPUSH 4 mg Q8H PRN Administration Nausea and Vomiting Pharmacy Consult 1 each 12/21/20 11:39 Consult Rx Perform Med Rec MISCELLANE ONCE PRN Consult order Sodium Chloride 3 ml 12/22/20 00:00 12/23/20 07:49 0.9 % Sodium Chloride Flush 3 Ml Syringe IVFLUSH 3 ml QSHIFT [facility] Administration Exam Exam Date and Time: December 23, 2020 1021 Height,Weight and Vital Signs: Height 5 ft 9 in Weight 75 kg Last Vital Signs Temp 98.2 F 12/23/20 07:51 Pulse 80 12/23/20 07:51 Resp 20 12/23/20 07:51 BP 121/74 12/23/20 07:51 Pulse Ox 97 12/23/20 07:51 Pertinent Lab Results Pertinent Lab Results: Laboratory Tests 12/21/20 12/21/20 12/21/20 12:22 12:22 12:22 WBC 19.1 H RBC 4.75 Hgb 13.3 L Hct 42.5 MCV 89.5 MCH 28.0 MCHC 31.3 RDW 15.8 Plt Count 200 MPV 10.5 Immature Gran % (Auto) 0.6 H Neut % (Auto) 81.8 H Lymph % (Auto) 11.4 L Wake % (Auto) 6.0 Eos % (Auto) 0.0 Baso % (Auto) 0.2 Lymph # (Auto) 2.2 Wake # (Auto) 1.2 Eos # (Auto) 0.0 Baso # (Auto) 0.0 Abs Immat Gran (auto) 0.11 H Absolute Neuts (auto) 15.7 H Absolute Nucleated RBC 0.000 Nucleated RBC % (auto) 0.0 PT INR APTT Sodium 140 Potassium 4.9 D Chloride 105 Carbon Dioxide 22 Anion Gap 18 BUN 42 H Creatinine 0.62 Estim Creat Clear Calc 110.8 Estimated GFR > 60 POC Glucose Random Glucose 254 H D Fasting Glucose Lactic Acid Calcium 8.9 D Magnesium Total Bilirubin Direct Bilirubin AST ALT Alkaline Phosphatase Troponin I High Sens Total Protein Albumin Lipase Urine Color Urine Appearance Urine pH Ur Specific [place] Urine Protein Urine Glucose (UA) Urine Ketones Urine Blood Urine Nitrite Ur Leukocyte Esterase Urine RBC Urine WBC Ur Squamous Epith Cells Urine Bacteria Urine Mucus Stool Occult Blood COVID-19 ([facility]) Negative COVID-19 Clin Com See Note Blood Type Antibody Screen 12/21/20 12/21/20 12/21/20 12:22 12:22 12:22 WBC RBC Hgb Hct MCV MCH MCHC RDW Plt Count MPV Immature Gran % (Auto) Neut % (Auto) Lymph % (Auto) Wake % (Auto) Eos % (Auto) Baso % (Auto) Lymph # (Auto) Wake # (Auto) Eos # (Auto) Baso # (Auto) Abs Immat Gran (auto) Absolute Neuts (auto) Absolute Nucleated RBC Nucleated RBC % (auto) PT 14.9 H INR 1.3 H APTT 32.1 Sodium Potassium Chloride Carbon Dioxide Anion Gap BUN Creatinine Estim Creat Clear Calc Estimated GFR POC Glucose Random Glucose Fasting Glucose Lactic Acid 1.8 Calcium Magnesium 2.2 Total Bilirubin 1.1 H Direct Bilirubin 0.4 AST 21 ALT 21 Alkaline Phosphatase 122 H D Troponin I High Sens Total Protein 7.0 Albumin 3.2 L Lipase 23 Urine Color Urine Appearance Urine pH Ur Specific [place] Urine Protein Urine Glucose (UA) Urine Ketones Urine Blood Urine Nitrite Ur Leukocyte Esterase Urine RBC Urine WBC Ur Squamous Epith Cells Urine Bacteria Urine Mucus Stool Occult Blood COVID-19 ([facility]AZ[facility]) COVID-19 [employer] Blood Type Antibody Screen 12/21/20 12/21/20 12/21/20 12:22 12:24 13:09 WBC RBC Hgb Hct MCV MCH MCHC RDW Plt Count MPV Immature Gran % (Auto) Neut % (Auto) Lymph % (Auto) Wake % (Auto) Eos % (Auto) Baso % (Auto) Lymph # (Auto) Wake # (Auto) Eos # (Auto) Baso # (Auto) Abs Immat Gran (auto) Absolute Neuts (auto) Absolute Nucleated RBC Nucleated RBC % (auto) PT INR APTT Sodium Potassium Chloride Carbon Dioxide Anion Gap BUN Creatinine Estim Creat Clear Calc Estimated GFR POC Glucose Random Glucose Fasting Glucose Lactic Acid Calcium Magnesium Total Bilirubin Direct Bilirubin AST ALT Alkaline Phosphatase Troponin I High Sens < 3.5 D Total Protein Albumin Lipase Urine Color Urine Appearance Urine pH Ur Specific [place] Urine Protein Urine Glucose (UA) Urine Ketones Urine Blood Urine Nitrite Ur Leukocyte Esterase Urine RBC Urine WBC Ur Squamous Epith Cells Urine Bacteria Urine Mucus Stool Occult Blood NEGATIVE COVID-19 ([facility]) COVID-19 [employer] Blood Type O Positive Antibody Screen NEGATIVE 12/21/20 12/22/20 12/22/20 21:36 07:00 07:00 WBC 13.8 H RBC 4.12 L Hgb 11.7 L Hct 37.6 L MCV 91.3 MCH 28.4 MCHC 31.1 RDW 15.9 Plt Count 145 L D MPV 11.0 Immature Gran % (Auto) 0.6 H Neut % (Auto) 76.5 H Lymph % (Auto) 16.8 L Wake % (Auto) 5.3 Eos % (Auto) 0.7 Baso % (Auto) 0.1 Lymph # (Auto) 2.3 Wake # (Auto) 0.7 Eos # (Auto) 0.1 Baso # (Auto) 0.0 Abs Immat Gran (auto) 0.08 H Absolute Neuts (auto) 10.5 H Absolute Nucleated RBC 0.000 Nucleated RBC % (auto) 0.0 PT INR APTT Sodium 140 Potassium 4.2 Chloride 108 Carbon Dioxide 22 Anion Gap 14 BUN 31 H Creatinine 0.55 Estim Creat Clear Calc 124.9 Estimated GFR > 60 POC Glucose 226 H Random Glucose 173 H Fasting Glucose Lactic Acid Calcium 8.2 L D Magnesium Total Bilirubin Direct Bilirubin AST ALT Alkaline Phosphatase Troponin I High Sens Total Protein Albumin Lipase Urine Color Urine Appearance Urine pH Ur Specific [place] Urine Protein Urine Glucose (UA) Urine Ketones Urine Blood Urine Nitrite Ur Leukocyte Esterase Urine RBC Urine WBC Ur Squamous Epith Cells Urine Bacteria Urine Mucus Stool Occult Blood COVID-19 ([facility]) COVID-19 Clin Com Blood Type Antibody Screen 12/22/20 12/22/20 12/22/20 07:18 09:05 10:47 WBC RBC Hgb Hct MCV MCH MCHC RDW Plt Count MPV Immature Gran % (Auto) Neut % (Auto) Lymph % (Auto) Wake % (Auto) Eos % (Auto) Baso % (Auto) Lymph # (Auto) Wake # (Auto) Eos # (Auto) Baso # (Auto) Abs Immat Gran (auto) Absolute Neuts (auto) Absolute Nucleated RBC Nucleated RBC % (auto) PT INR APTT Sodium Potassium Chloride Carbon Dioxide Anion Gap BUN Creatinine Estim Creat Clear Calc Estimated GFR POC Glucose 158 H 186 H Random Glucose Fasting Glucose Lactic Acid Calcium Magnesium Total Bilirubin Direct Bilirubin AST ALT Alkaline Phosphatase Troponin I High Sens Total Protein Albumin Lipase Urine Color JEANA Urine Appearance HAZY Urine pH 5.5 Ur Specific [place] 1.025 Urine Protein TRACE Urine Glucose (UA) NEG Urine Ketones 15 Urine Blood 1+ H Urine Nitrite NEG Ur Leukocyte Esterase NEG Urine RBC 1-4 Urine WBC 0-2 Ur Squamous Epith Cells 1+ Urine Bacteria NONE Urine Mucus TRACE Stool Occult Blood COVID-19 ([facility]AZ[facility]) COVID-[employer] Blood Type Antibody Screen 12/22/20 12/22/20 12/22/20 11:42 15:57 17:31 WBC RBC Hgb Hct MCV MCH MCHC RDW Plt Count MPV Immature Gran % (Auto) Neut % (Auto) Lymph % (Auto) Wake % (Auto) Eos % (Auto) Baso % (Auto) Lymph # (Auto) Wake # (Auto) Eos # (Auto) Baso # (Auto) Abs Immat Gran (auto) Absolute Neuts (auto) Absolute Nucleated RBC Nucleated RBC % (auto) PT INR APTT Sodium Potassium Chloride Carbon Dioxide Anion Gap BUN Creatinine Estim Creat Clear Calc Estimated GFR POC Glucose 166 H 124 H 158 H Random Glucose Fasting Glucose Lactic Acid Calcium Magnesium Total Bilirubin Direct Bilirubin AST ALT Alkaline Phosphatase Troponin I High Sens Total Protein Albumin Lipase Urine Color Urine Appearance Urine pH Ur Specific [place] Urine Protein Urine Glucose (UA) Urine Ketones Urine Blood Urine Nitrite Ur Leukocyte Esterase Urine RBC Urine WBC Ur Squamous Epith Cells Urine Bacteria Urine Mucus Stool Occult Blood COVID-19 ([facility]) COVID-[employer] Blood Type Antibody Screen 12/22/20 12/23/20 12/23/20 20:29 05:35 05:35 WBC Cancelled RBC Cancelled Hgb Cancelled Hct Cancelled MCV Cancelled MCH Cancelled MCHC Cancelled RDW Cancelled Plt Count Cancelled MPV Cancelled Immature Gran % (Auto) Cancelled Neut % (Auto) Cancelled Lymph % (Auto) Cancelled Wake % (Auto) Cancelled Eos % (Auto) Cancelled Baso % (Auto) Cancelled Lymph # (Auto) Cancelled [place] # (Auto) Cancelled Eos # (Auto) Cancelled Baso # (Auto) Cancelled Abs Immat Gran (auto) Cancelled Absolute Neuts (auto) Cancelled Absolute Nucleated RBC Cancelled Nucleated RBC % (auto) Cancelled PT INR APTT Sodium 139 Potassium 4.1 Chloride 109 H Carbon Dioxide 21 L Anion Gap 13 BUN 26 H Creatinine 0.52 Estim Creat Clear Calc 132.1 Estimated GFR > 60 POC Glucose 141 H Random Glucose Fasting Glucose 127 H D Lactic Acid Calcium 8.5 Magnesium Total Bilirubin Direct Bilirubin AST ALT Alkaline Phosphatase Troponin I High Sens Total Protein Albumin Lipase Urine Color Urine Appearance Urine pH Ur Specific [place] Urine Protein Urine Glucose (UA) Urine Ketones Urine Blood Urine Nitrite Ur Leukocyte Esterase Urine RBC Urine WBC Ur Squamous Epith Cells Urine Bacteria Urine Mucus Stool Occult Blood COVID-19 ([facility]AZ[facility]) COVID-19 [employer] Blood Type Antibody Screen 12/23/20 12/23/20 12/23/20 05:35 05:35 07:12 WBC 10.6 RBC 4.03 L Hgb 11.3 L Hct 36.6 L MCV 90.8 MCH 28.0 MCHC 30.9 L RDW 15.6 Plt Count 123 L MPV 11.3 Immature Gran % (Auto) Neut % (Auto) Lymph % (Auto) Wake % (Auto) Eos % (Auto) Baso % (Auto) Lymph # (Auto) [place] # (Auto) Eos # (Auto) Baso # (Auto) Abs Immat Gran (auto) Absolute Neuts (auto) Absolute Nucleated RBC 0.000 Nucleated RBC % (auto) 0.0 PT INR APTT Sodium Cancelled Potassium Cancelled Chloride Cancelled Carbon Dioxide Cancelled Anion Gap Cancelled BUN Cancelled Creatinine Cancelled Estim Creat Clear Calc Cancelled Estimated GFR Cancelled POC Glucose 133 H Random Glucose Cancelled Fasting Glucose Lactic Acid Calcium Cancelled Magnesium Total Bilirubin Direct Bilirubin AST ALT Alkaline Phosphatase Troponin I High Sens Total Protein Albumin Lipase Urine Color Urine Appearance Urine pH Ur Specific [place] Urine Protein Urine Glucose (UA) Urine Ketones Urine Blood Urine Nitrite Ur Leukocyte Esterase Urine RBC Urine WBC Ur Squamous Epith Cells Urine Bacteria Urine Mucus Stool Occult Blood COVID-19 (ELEAZAR) COVID-19 [employer] Blood Type Antibody Screen Airway Mallampati Class: II TM Dist: >3cm Neck ROM: Full Heart: RRR Lungs: CTAB Assessment and Plan Assessment Anesthesia Assessment: Anesthesia Plan Discussed and Chart Reviewed Final Anesthetic Review NPO: Yes ASA Class: III Final Preanesthetic Review: No Changes in Pt Med Stat, Meds/Allgs Chart Reviewed, Consent Obtained/Reviewed and Anes Risks/Benef Reviewed Patient Risk: Intermediate Procedure Risk: Low Assessment/Block/Sedation in SS: Assess/Block/Sedation-SS Anesthetic Plan Anesthetic Plan: MAC: Disposition: Inp. Admit - Standard Bed
--- NOTE | 2020-12-23 10:49 | PC.NURSE ---
pt has open area and redness to buttock . well documented and pictures in chart by floor
[2020-12-23 10:50] LABS: Glucose, Whole Blood 122 mg/dL (60-115)
[2020-12-23] MEDS: Lactated Ringers 1,000 ML 50 ML IV (10:51)
--- NOTE | 2020-12-23 12:12 | PM.EVENT ---
Event Note Date of Service: 12/23/20 Event Note: GI-EGD-Full note dictated Findings: 1. Severe erosive esophagitis involving the entire esophagus. Biopsies taken from above EG Junction and at 20cm-R/O CMV or Herpes. No sign of Candidiasis. 2. Hiatal hernia 3. 12 mm Duodenal ulcer in posterior bulb-no vessel, no bleeding 4. Gastric antrum biopsied x 3, R/O H.pylori Plan: Check path. GERD precautions(orders placed for nursing). Continue IV PPI for 24-48 hours, and then start oral PPI omeprazole at 40mg BID. No ASA/NSAIDs shelter. F/U labs in AM. Full liquids, and advance to soft diet in 24-48 hours as tolerated. Thanks.
--- NOTE | 2020-12-23 12:22 | PM.OP ---
Brief Operative Note Date of Service: 12/23/20 Pre-op diagnosis: UGI Bleed Post-op diagnosis: other (Severe erosive esophagitis, Duodenal bulb ulcer, Hiatal hernia) Procedure: EGD with biopsies Surgeon: Abdulaziz Flores Anesthesia: MAC Estimated blood loss (mL): 4.0 Pathology: other (A. Gastric antrum B. Esophagus 20-35 cm) Condition: stable Disposition: PACU
--- NOTE | 2020-12-23 13:05 | MHC.CM.PN ---
Patient is NPO for endoscopy today r/t GIB. Patient is on IV MS and IV Protonix gtt. Discharge plan is to return to [facility] when medically stable. CM will continue to follow patient for discharge needs.
--- NOTE | 2020-12-23 13:59 | P.PNIM_ITS ---
Subjective Subjective Date of Service: 12/23/20 Interval History: hungry Cardiovascular Cardiovascular: Reports no additional cardiovascular complaints Gastrointestinal Gastrointestinal: Reports no additional gastrointestinal complaints Physical Exam Vital Signs: Vital Signs: Last Vital Signs Temp 98.5 F 12/23/20 12:27 Pulse 78 12/23/20 12:27 Resp 17 12/23/20 12:27 BP 118/63 12/23/20 12:27 Pulse Ox 98 12/23/20 12:27 Body Mass Index 24.4 General: AO X 3, no acute distress Resp: CTA bilateral CVS: S1,S2,RRR GI: soft, non tender, non distended Neuro: motor grossly intact Psych: appropriate affect Objective Data Current Medications Generic Name Dose Route Start Last Admin Trade Name Freq PRN Reason Stop Dose Admin Acetaminophen 650 mg 12/21/20 18:19 Acetaminophen 325 Mg Tablet PO Q6H PRN Pain, Mild (Pain Scale 1-3) Acetaminophen 650 mg 12/21/20 18:19 Acetaminophen 325 Mg Tablet PO Q6H PRN Pain, Mild (Pain Scale 1-3) Docusate Sodium 100 mg 12/21/20 21:00 12/23/20 07:50 Docusate Sodium 100 Mg Capsule PO Not Given BID [facility] Finasteride 5 mg 12/22/20 09:00 12/23/20 07:50 Finasteride 5 Mg Tablet PO Not Given DAILY [facility] Pantoprazole Sodium 80 mg/ 100 mls @ 10 mls/hr 12/21/20 12:15 12/23/20 03:58 Sodium Chloride IV 12/24/20 12:14 8 mg/hr .Q10H EKATERINA 10 mls/hr Administration 8 MG/HR Lactated Ringer's 1,000 mls @ 50 mls/hr 12/23/20 10:30 12/23/20 10:51 Lr IV 50 mls/hr .Q20H [facility] Administration Insulin Glargine 12 unit 12/22/20 09:00 12/23/20 07:49 Insulin Glargine,Hum.Rec.Anlog 100 Unit/Ml 10 Ml Vial SUBCUT 12 unit DAILY [facility] Administration Insulin Human Lispro 0 unit 12/21/20 21:00 12/23/20 11:16 Insulin Lispro 100 Unit/Ml 3 Ml Vial SUBCUT Not Given QIDACHS [facility] Protocol Morphine Sulfate 1 mg 12/22/20 16:13 12/22/20 16:34 Morphine Sulfate 2 Mg/Ml Cartridge IVPUSH 1 mg Q4H PRN Administration Pain, Severe (Pain Scale 7-10) Ondansetron HCl 4 mg 12/21/20 18:19 12/22/20 16:06 Ondansetron Hcl 4 Mg/2 Ml Vial IVPUSH 4 mg Q8H PRN Administration Nausea and Vomiting Ondansetron HCl 4 mg 12/23/20 13:44 Ondansetron Hcl 4 Mg/2 Ml Vial IVPUSH ONCE PRN Nausea and Vomiting Pharmacy Consult 1 each 12/21/20 11:39 Consult Rx Perform Med Rec MISCELLANE ONCE PRN Consult order Sodium Chloride 3 ml 12/22/20 00:00 12/23/20 07:49 0.9 % Sodium Chloride Flush 3 Ml Syringe IVFLUSH 3 ml QSHIFT [facility] Administration Labs CBC & Chem 7: 12/23/20 05:35 12/23/20 05:35 Microbiology Microbiology Results: Microbiology 12/21/20 12:22 Blood - Venous Blood Culture - Preliminary No growth after 48 hours. 12/21/20 13:09 Blood - Venous Blood Culture - Preliminary No growth after 24 hours. Assessment and Plan (1) Leukocytosis: Status: Acute (2) Abdominal pain: Status: Acute (3) Hematemesis: Status: Acute (4) Physical deconditioning: Status: Acute Assessment and Plan: A 70 years old male with PMH DM, BPH, GERD who presents to the hospital with 3 days increased lethargy associated with abdominal pain and multiple episodes of hematemesis of dark color material acute blood loss anemia Hematemesis EGD today showed severe esophagitis and duodenal bulb ulcer Follow-up pathology Continue IV Protonix Monitor labs Acute on chronic anemia Hemoglobin dropped about 2 grams No significant hematemesis continue to monitor H&H Leukocytosis No clear source of infection identified on CXR, CT abdomen resolved bacteremia was actually contaminant previously Diabetes type 2 Put his daily dose Lantus of 20 SSI DVT PPX SCDs
[2020-12-23] MEDS: Morphine Sulfate 2 MG/ML CARTRIDGE 1 MG IVPUSH ×2 (14:02→20:27)
--- NOTE | 2020-12-23 14:21 | MHC.CLN ---
RE: CONSULT PT RECEIVING F/L DIET PT WITH INCREASED NUTRITION NEEDS R/T PRESSURE INJURY RECOMMEND ENSURE TID AND MIKI TO INCREASE KCALS AND PROMOTE WOUND HEALING SUPPLEMENT TO PROVIDE 1210KCALS, 65G PROTEIN MONITOR BS AND PO INTAKE CLOSELY SEE ALSO CLINICAL NUTRITION ASSESSMENT
[2020-12-23 16:28] LABS: Glucose, Whole Blood 155 mg/dL (60-115)
[2020-12-23 19:57] LABS: Glucose, Whole Blood 121 mg/dL (60-115)
[2020-12-24 00:54] LABS: Anion Gap 14 (12-20); Blood Urea Nitrogen 22 mg/dL (9-16); Calcium 8.6 mg/dL (8.4-10.2); Carbon Dioxide 23 mmol/L (22-29); Chloride 106 mmol/L (96-108); Creatinine Clr Calc Pharmacy 132.1; Estimated Glomerular Filt Rate > 60; Glucose Fasting 121 mg/dL (60-99); Potassium 4.4 mmol/L (3.3-5.1); Sodium 139 mmol/L (135-145)
[2020-12-24] MEDS: Pantoprazole Sodium 80 MG in 0.9 % Sodium Chloride 80 ML 10 MG IV ×2 (01:00→11:35)
[2020-12-24] MEDS: 0.9 % Sodium Chloride Flush 3 ML SYRINGE IVFLUSH ×2 (01:03→07:44)
[2020-12-24 04:00] VITALS: BP 128/72; PULSE 76; RESP 20; TEMP 36.7; O2SAT 98
[2020-12-24 06:26] LABS: Basophils Percent Auto 0.1 % (0-2); Eosinophils Absolute Auto 0.1 X10*3/uL (0.0-0.4); Eosinophils Percent Auto 1.5 % (0-4); Hematocrit 35.2 % (42-52); Hemoglobin 10.8 g/dl (14.0-18.0); Imm Gran Abs Auto 0.11 X10*3/uL (0.00-0.03); Imm Gran Pct Auto 1.3 % (0.0-0.4); Lymphocytes Absolute Auto 1.6 X10*3/uL (1.2-4.9); Lymphocytes Percent Auto 18.4 % (20-40); MANUAL DIFF FLAG NO; Mean Corpuscular HGB Conc 30.7 g/dl (31.0-36.0); Mean Corpuscular Hemoglobin 27.8 pg (27.0-33.0); Mean Corpuscular Volume 90.7 fL (80-98); Mean Platelet Volume 10.8 fL (9.4-12.4); Monocytes Absolute Auto 0.6 X10*3/uL (0.1-1.2); Monocytes Percent Auto 6.9 % (2-11); Neutrophils Absolute Auto 6.2 X10*3/uL (2.0-8.3); Neutrophils Percent Auto 71.8 % (45-73); Platelet Count 122 X10*3/uL (160-400); Red Blood Count 3.88 X10*6/uL (4.60-5.80); Red Cell Distribution Width 15.7 % (11.0-16.0); White Blood Count 8.6 X10*3/uL (4.8-10.8)
[2020-12-24 07:27] LABS: Glucose, Whole Blood 190 mg/dL (60-115)
[2020-12-24 07:32] VITALS: BP 140/84; PULSE 81; RESP 20; TEMP 36.4; O2SAT 99
[2020-12-24] MEDS: Finasteride 5 MG TABLET PO (07:42)
[2020-12-24] MEDS: Mag&Al/Sim/Diphenhyd/Lidocaine 10 ML ORAL.SUSP PO ×4 (07:42→23:18)
[2020-12-24] MEDS: Insulin Lispro 100 UNIT/ML 3 ML VIAL SUBCUT ×2 (07:42→11:42)
[2020-12-24] MEDS: Docusate Sodium 100 MG CAPSULE PO (07:42)
[2020-12-24] MEDS: Lactated Ringers 1,000 ML 50 ML IV (07:45)
[2020-12-24] MEDS: Insulin Glargine,Hum.rec.anlog 100 UNIT/ML 10 ML VIAL 12 UNIT SUBCUT (07:53)
[2020-12-24] MEDS: Morphine Sulfate 2 MG/ML CARTRIDGE 1 MG IVPUSH ×3 (08:17→20:04)
--- NOTE | 2020-12-24 10:31 | OP_ITS ---
SURGEON: Abdulaziz Flores MD INDICATIONS: The patient presents for evaluation of upper GI bleeding. Full consent has been obtained from him for this, including risks of bleeding and perforation. PREOPERATIVE DIAGNOSIS: Upper gastrointestinal bleeding. POSTOPERATIVE DIAGNOSIS: PROCEDURE PERFORMED: Esophagogastroduodenoscopy with biopsies. ESTIMATED BLOOD LOSS: COMPLICATIONS: ANESTHESIA: Monitored anesthesia care. ASSISTANTS: SPECIMENS: POSTOPERATIVE DIAGNOSES: Upper gastrointestinal bleeding, severe erosive esophagitis, hiatal hernia, duodenal ulcer. DESCRIPTION OF PROCEDURE: The patient was placed in the left lateral decubitus position. The Olympus video gastroscope was passed in the posterior oropharynx and upper esophagus under direct vision. The scope was passed slowly into the distal esophagus. The gastroesophageal junction appeared at 35 cm. Extending from [address] to the proximal esophagus, was a severe circumferential erosive esophagitis with overlying exudate and some friability. There were no discrete ulcerations. There was no obvious evidence of candidiasis. There was no active bleeding. The scope entered into the stomach. There was a small hiatal hernia. The scope was advanced to pylorus and the duodenum was cannulated to the descending portion. The duodenum including the bulb was carefully inspected. In the duodenal bulb along the posterior wall, was an approximately 12 mm ulcer with a clean base and no bleeding. There was duodenitis in the duodenal bulb as well. The scope was withdrawn back in the stomach. The gastric antrum and body appeared normal with good peristalsis. Biopsies were obtained from the antrum. The scope was retroflexed visualizing the proximal stomach carefully, which appeared normal, without any sign of mass or ulceration. The scope was straightened out and withdrawn back into the esophagus. I obtained biopsies in the distal esophagus at 35 cm and in the very proximal esophagus at 20 cm and placed them in the same container. The scope was withdrawn from the patient. He tolerated the procedure well and was returned to the recovery area in stable condition. IMPRESSION: 1. Severe erosive esophagitis. 2. Hiatal hernia. 3. Duodenal ulcer. 4. Rule out Helicobacter pylori. PLAN: The results of the biopsies will be checked. In the meantime, I will continue IV Protonix infusion for another 24 to 48 hours and then be switched to an oral omeprazole 40 mg b.i.d. I will keep him on the b.i.d. dose for 2 months and then switch him to once a day thereafter on a long-term basis. He should avoid all aspirin and NSAIDs long-term. I have written orders for anti-reflux precautions such as elevating the head of his bed and all meals being out of bed. He will have followup laboratories tomorrow. His diet will be advanced. If Helicobacter pylori is present in the gastric biopsies, I would recommend treating that at some point as well. MD MONIKA Jacob/THAO / [id number]
[2020-12-24 11:33] LABS: Glucose, Whole Blood 176 mg/dL (60-115)
[2020-12-24 11:46] VITALS: BP 116/69; PULSE 75; RESP 18; TEMP 36.4; O2SAT 100
--- NOTE | 2020-12-24 12:21 | HO.PM.IMPN ---
Subjective Subjective Date of Service: 12/24/20 Interval History: odynophagia Cardiovascular Cardiovascular: Reports no additional cardiovascular complaints Gastrointestinal Gastrointestinal: Reports no additional gastrointestinal complaints Physical Exam Vital Signs: Vital Signs: Last Vital Signs Temp 97.6 F 12/24/20 11:46 Pulse 75 12/24/20 11:46 Resp 18 12/24/20 11:46 BP 116/69 12/24/20 11:46 Pulse Ox 100 12/24/20 11:46 Body Mass Index 24.4 General: AO X 3, no acute distress Resp: CTA bilateral CVS: S1,S2,RRR GI: soft, non tender, non distended Neuro: motor grossly intact Psych: appropriate affect Objective Data Current Medications Generic Name Dose Route Start Last Admin Trade Name Freq PRN Reason Stop Dose Admin Acetaminophen 650 mg 12/21/20 18:19 Acetaminophen 325 Mg Tablet PO Q6H PRN Pain, Mild (Pain Scale 1-3) Acetaminophen 650 mg 12/21/20 18:19 Acetaminophen 325 Mg Tablet PO Q6H PRN Pain, Mild (Pain Scale 1-3) Docusate Sodium 100 mg 12/21/20 21:00 12/24/20 07:42 Docusate Sodium 100 Mg Capsule PO 100 mg BID EKATERINA Administration Finasteride 5 mg 12/22/20 09:00 12/24/20 07:42 Finasteride 5 Mg Tablet PO 5 mg DAILY EKATERINA Administration Lactated Ringer's 1,000 mls @ 50 mls/hr 12/23/20 10:30 12/24/20 07:45 Lr IV 50 mls/hr .Q20H EKATERINA Administration Insulin Glargine 12 unit 12/22/20 09:00 12/24/20 07:53 Insulin Glargine,Hum.Rec.Anlog 100 Unit/Ml 10 Ml Vial SUBCUT 12 unit DAILY EKATERINA Administration Insulin Human Lispro 0 unit 12/21/20 21:00 12/24/20 11:42 Insulin Lispro 100 Unit/Ml 3 Ml Vial SUBCUT 2 unit QIDACHS EKATERINA Administration Protocol Lidocaine/Diphenhydr/Alum/Mg/Simeth 10 ml 12/23/20 15:47 12/24/20 11:39 Mag&Al/Sim/Diphenhyd/Lidocaine 10 Ml Oral.Susp PO 10 ml Q4H PRN Administration odynophagia Protocol Morphine Sulfate 1 mg 12/22/20 16:13 04/15/21 08:17 Morphine Sulfate 2 Mg/Ml Cartridge IVPUSH 1 mg Q4H PRN Administration Pain, Severe (Pain Scale 7-10) Ondansetron HCl 4 mg 12/21/20 18:19 12/22/20 16:06 Ondansetron Hcl 4 Mg/2 Ml Vial IVPUSH 4 mg Q8H PRN Administration Nausea and Vomiting Ondansetron HCl 4 mg 12/23/20 13:44 Ondansetron Hcl 4 Mg/2 Ml Vial IVPUSH ONCE PRN Nausea and Vomiting Pharmacy Consult 1 each 12/21/20 11:39 Consult Rx Perform Med Rec MISCELLANE ONCE PRN Consult order Sodium Chloride 3 ml 12/22/20 00:00 12/24/20 07:44 0.9 % Sodium Chloride Flush 3 Ml Syringe IVFLUSH 3 ml QSHIFT EKATERINA Administration Labs CBC & Chem 7: 12/24/20 05:30 12/24/20 00:15 Microbiology Microbiology Results: Microbiology 12/21/20 12:22 Blood - Venous Blood Culture - Preliminary No growth after 48 hours. 12/21/20 13:09 Blood - Venous Blood Culture - Preliminary No growth after 48 hours. Assessment and Plan (1) Leukocytosis: Status: Acute (2) Abdominal pain: Status: Acute (3) Hematemesis: Status: Acute (4) Physical deconditioning: Status: Acute Assessment and Plan: A 70 years old male with PMH DM, BPH, GERD who presents to the hospital with 3 days increased lethargy associated with abdominal pain and multiple episodes of hematemesis of dark color material acute blood loss anemia Hematemesis EGD 12/23/20 showed severe esophagitis and duodenal bulb ulcer Follow-up pathology Continue IV Protonix Monitor labs Acute on chronic anemia Hemoglobin dropped about 2 grams, now stable No significant hematemesis continue to monitor H&H Leukocytosis No clear source of infection identified on CXR, CT abdomen resolved bacteremia was actually contaminant previously Diabetes type 2 Put his daily dose Lantus of 20 SSI DVT PPX SCDs
[2020-12-24 15:41] VITALS: BP 97/72; PULSE 89; RESP 19; O2SAT 100
[2020-12-24] MEDS: Sucralfate Oral Suspension 1 GM/10 ML ORAL.SUSP PO ×2 (16:12→20:03)
[2020-12-24 16:25] LABS: Glucose, Whole Blood 108 mg/dL (60-115)
[2020-12-24 19:18] VITALS: BP 119/73; PULSE 76; RESP 19; TEMP 36.5; O2SAT 98
[2020-12-24 19:48] LABS: Glucose, Whole Blood 109 mg/dL (60-115)
[2020-12-25] VITALS (9 sets, daily range): BP systolic 92–127; BP diastolic 62–73; PULSE 57–88; RESP 18–20; TEMP 36.6–37.4; O2SAT 95–98; BMI 24.6
[2020-12-25] MEDS: Morphine Sulfate 2 MG/ML CARTRIDGE 1 MG IVPUSH (00:21)
[2020-12-25] MEDS: Lactated Ringers 1,000 ML 50 ML IV (04:02)
[2020-12-25 05:51] LABS: MANUAL DIFF FLAG NO
[2020-12-25 05:54] LABS: Eosinophils Absolute Auto 0.2 X10*3/uL (0.0-0.4); Eosinophils Percent Auto 2.5 % (0-4); Hematocrit 32.3 % (42-52); Hemoglobin 10.1 g/dl (14.0-18.0); Imm Gran Abs Auto 0.12 X10*3/uL (0.00-0.03); Imm Gran Pct Auto 1.7 % (0.0-0.4); Lymphocytes Absolute Auto 1.6 X10*3/uL (1.2-4.9); Lymphocytes Percent Auto 23.7 % (20-40); Mean Corpuscular HGB Conc 31.3 g/dl (31.0-36.0); Mean Corpuscular Volume 89.5 fL (80-98); Mean Platelet Volume 10.3 fL (9.4-12.4); Monocytes Absolute Auto 0.5 X10*3/uL (0.1-1.2); Monocytes Percent Auto 7.9 % (2-11); Neutrophils Absolute Auto 4.4 X10*3/uL (2.0-8.3); Neutrophils Percent Auto 64.2 % (45-73); Platelet Count 115 X10*3/uL (160-400); Red Blood Count 3.61 X10*6/uL (4.60-5.80); Red Cell Distribution Width 15.8 % (11.0-16.0); White Blood Count 6.9 X10*3/uL (4.8-10.8)
[2020-12-25] MEDS: Pantoprazole Sodium 40 MG/10 ML VIAL IVPUSH ×2 (06:21→16:21)
[2020-12-25 06:24] LABS: Anion Gap 13 (12-20); Blood Urea Nitrogen 17 mg/dL (9-16); Carbon Dioxide 22 mmol/L (22-29); Chloride 106 mmol/L (96-108); Creatinine Clr Calc Pharmacy 152.7; Estimated Glomerular Filt Rate > 60; Glucose Fasting 122 mg/dL (60-99); Sodium 137 mmol/L (135-145)
[2020-12-25 07:27] LABS: Glucose, Whole Blood 183 mg/dL (60-115)
[2020-12-25] MEDS: Insulin Lispro 100 UNIT/ML 3 ML VIAL SUBCUT (07:45)
[2020-12-25] MEDS: Finasteride 5 MG TABLET PO (07:45)
[2020-12-25] MEDS: Sucralfate Oral Suspension 1 GM/10 ML ORAL.SUSP PO ×4 (07:45→20:29)
[2020-12-25] MEDS: 0.9 % Sodium Chloride Flush 3 ML SYRINGE IVFLUSH ×2 (07:46→16:25)
[2020-12-25] MEDS: Insulin Glargine,Hum.rec.anlog 100 UNIT/ML 10 ML VIAL 12 UNIT SUBCUT (07:46)
--- NOTE | 2020-12-25 09:43 | HO.POSTANES ---
Post Anesthesia Evaluation Post Anesthesia Evaluation Vital Signs: Vital Signs Temp Pulse Resp BP Pulse Ox 12/25/20 08:00 98.0 F 73 20 111/67 98 12/25/20 03:22 97.8 F 57 18 127/66 98 12/25/20 00:00 98.2 F 75 18 120/73 98 Anesthesia: Monitored Mental Status: Awake Pain Control: Satisfactory Nausea/Vomiting: None Hydration: Adequate Anesthesia-Related Issues: No Anes. Related Issues
--- NOTE | 2020-12-25 10:11 | P.PNIM_ITS ---
Subjective Subjective Date of Service: 12/25/20 Interval History: still with significant burning on swallowing Cardiovascular Cardiovascular: Reports no additional cardiovascular complaints Gastrointestinal Gastrointestinal: Reports no additional gastrointestinal complaints Physical Exam Vital Signs: Vital Signs: Last Vital Signs Temp 98.0 F 12/25/20 08:00 Pulse 73 12/25/20 08:00 Resp 20 12/25/20 08:00 BP 111/67 12/25/20 08:00 Pulse Ox 98 12/25/20 08:00 Body Mass Index 24.4 General: AO X 3, agitated Resp: CTA bilateral CVS: S1,S2,RRR GI: soft, non tender, non distended Neuro: motor grossly intact Psych: appropriate affect Objective Data Current Medications Generic Name Dose Route Start Last Admin Trade Name Freq PRN Reason Stop Dose Admin Acetaminophen 650 mg 12/21/20 18:19 Acetaminophen 325 Mg Tablet PO Q6H PRN Pain, Mild (Pain Scale 1-3) Acetaminophen 650 mg 12/21/20 18:19 Acetaminophen 325 Mg Tablet PO Q6H PRN Pain, Mild (Pain Scale 1-3) Docusate Sodium 100 mg 12/21/20 21:00 12/25/20 07:46 Docusate Sodium 100 Mg Capsule PO Not Given BID [facility] Finasteride 5 mg 12/22/20 09:00 12/25/20 07:45 Finasteride 5 Mg Tablet PO 5 mg DAILY EKATERINA Administration Insulin Glargine 12 unit 12/22/20 09:00 12/25/20 07:46 Insulin Glargine,Hum.Rec.Anlog 100 Unit/Ml 10 Ml Vial SUBCUT 12 unit DAILY EKATERINA Administration Insulin Human Lispro 0 unit 12/21/20 21:00 12/25/20 07:45 Insulin Lispro 100 Unit/Ml 3 Ml Vial SUBCUT 2 unit QIDACHS EKATERINA Administration Protocol Lidocaine/Diphenhydr/Alum/Mg/Simeth 10 ml 12/23/20 15:47 12/24/20 23:18 Mag&Al/Sim/Diphenhyd/Lidocaine 10 Ml Oral.Susp PO 10 ml Q4H PRN Administration odynophagia Protocol Morphine Sulfate 1 mg 12/22/20 16:13 12/25/20 00:21 Morphine Sulfate 2 Mg/Ml Cartridge IVPUSH 1 mg Q4H PRN Administration Pain, Severe (Pain Scale 7-10) Ondansetron HCl 4 mg 12/21/20 18:19 12/22/20 16:06 Ondansetron Hcl 4 Mg/2 Ml Vial IVPUSH 4 mg Q8H PRN Administration Nausea and Vomiting Ondansetron HCl 4 mg 12/23/20 13:44 Ondansetron Hcl 4 Mg/2 Ml Vial IVPUSH ONCE PRN Nausea and Vomiting Pantoprazole Sodium 40 mg 12/25/20 06:30 12/25/20 06:21 Pantoprazole Sodium 40 Mg/10 Ml Vial IVPUSH 40 mg BID@0630,1630 [facility] Administration Pharmacy Consult 1 each 12/21/20 11:39 Consult Rx Perform Med Rec MISCELLANE ONCE PRN Consult order Sodium Chloride 3 ml 12/22/20 00:00 12/25/20 07:46 0.9 % Sodium Chloride Flush 3 Ml Syringe IVFLUSH 3 ml QSHIFT [facility] Administration Sucralfate 1 gm 12/24/20 16:30 12/25/20 07:45 Sucralfate Oral Suspension 1 Gm/10 Ml Oral.Susp PO 1 gm QIDACHS [facility] Administration Labs CBC & Chem 7: 12/25/20 05:22 12/25/20 05:22 Microbiology Microbiology Results: Microbiology 12/21/20 12:22 Blood - Venous Blood Culture - Preliminary No growth after 48 hours. 12/21/20 13:09 Blood - Venous Blood Culture - Preliminary No growth after 48 hours. Assessment and Plan (1) Leukocytosis: Status: Acute (2) Abdominal pain: Status: Acute (3) Hematemesis: Status: Acute (4) Physical deconditioning: Status: Acute Assessment and Plan: A 70 years old male with PMH DM, BPH, GERD who presents to the hospital with 3 days increased lethargy associated with abdominal pain and multiple episodes of hematemesis of dark color material acute blood loss anemia Hematemesis EGD 12/23/20 showed severe esophagitis and duodenal bulb ulcer Follow-up pathology Continue IV Protonix Monitor labs Hemoglobin dropped about 2 grams, now stable No further hematemesis continue ppi, carafate, magic mouthwash, path pending Diabetes type 2 Lantus of 20 SSI DVT PPX SCDs
[2020-12-25 12:10] LABS: Glucose, Whole Blood 140 mg/dL (60-115)
--- NOTE | 2020-12-25 13:42 | MHC.CM.PN ---
DP Male 70 DX hematemesis DP is to return to [facility] via BLS. Pt has esophagitis. CM will follow.
--- NOTE | 2020-12-25 13:44 | MHC.CLN ---
F/U PT RECEIVING F/L DIET PT WITH INCREASED NUTRITION NEEDS R/T PRESSURE INJURY RECOMMEND ENSURE TID AND MIKI TO INCREASE KCALS AND PROMOTE WOUND HEALING SUPPLEMENT TO PROVIDE 1210KCALS, 65G PROTEIN WILL START MIKI ENSURE CURRENTLY IN PLACE MONITOR BS AND PO INTAKE CLOSELY
[2020-12-25 16:20] LABS: Glucose, Whole Blood 139 mg/dL (60-115)
[2020-12-25 20:15] LABS: Glucose, Whole Blood 143 mg/dL (60-115)
--- NOTE | 2020-12-25 20:59 | P.PNGI_ITS ---
Subjective Subjective Date of Service: 12/25/20 Interval History: Still with significant odynophagia, although he reports that things are a little better. Denies specific abdominal pain, but rather c/o diffuse body aches. Physical Exam Vital Signs: Vital Signs: Last Vital Signs Temp 99 F 12/25/20 20:50 Pulse 88 12/25/20 19:22 Resp 18 12/25/20 19:22 BP 92/62 12/25/20 19:22 Pulse Ox 95 12/25/20 19:22 Body Mass Index 24.4 Const: General: cooperative, comfortable, no acute distress and alert GI: Inspection: Yes normal to inspection Palpation (GI): Soft to palpation and Other GI palpation findings present (Nontender) Percussion: Yes normal to percussion Objective Data Labs CBC & Chem 7: 12/25/20 05:22 12/25/20 05:22 Labs: Laboratory Results - last 24 hr 12/25/20 12/25/20 12/25/20 05:22 05:22 07:23 WBC 6.9 RBC 3.61 L Hgb 10.1 L Hct 32.3 L MCV 89.5 MCH 28.0 MCHC 31.3 RDW 15.8 Plt Count 115 L MPV 10.3 Immature Gran % (Auto) 1.7 H Neut % (Auto) 64.2 Lymph % (Auto) 23.7 Saline % (Auto) 7.9 Eos % (Auto) 2.5 Baso % (Auto) 0.0 Lymph # (Auto) 1.6 Saline # (Auto) 0.5 Eos # (Auto) 0.2 Baso # (Auto) 0.0 Abs Immat Gran (auto) 0.12 H Absolute Neuts (auto) 4.4 Absolute Nucleated RBC 0.000 Nucleated RBC % (auto) 0.0 Sodium 137 Potassium 4.0 Chloride 106 Carbon Dioxide 22 Anion Gap 13 BUN 17 H Creatinine 0.45 L Estim Creat Clear Calc 152.7 Estimated GFR > 60 POC Glucose 183 H Fasting Glucose 122 H Calcium 8.0 L D 12/25/20 12/25/20 12/25/20 11:27 16:15 20:07 WBC RBC Hgb Hct MCV MCH MCHC RDW Plt Count MPV Immature Gran % (Auto) Neut % (Auto) Lymph % (Auto) Saline % (Auto) Eos % (Auto) Baso % (Auto) Lymph # (Auto) Saline # (Auto) Eos # (Auto) Baso # (Auto) Abs Immat Gran (auto) Absolute Neuts (auto) Absolute Nucleated RBC Nucleated RBC % (auto) Sodium Potassium Chloride Carbon Dioxide Anion Gap BUN Creatinine Estim Creat Clear Calc Estimated GFR POC Glucose 140 H 139 H 143 H Fasting Glucose Calcium Microbiology Microbiology Results: Microbiology 12/21/20 12:22 Blood - Venous Blood Culture - Preliminary No growth after 48 hours. 12/21/20 13:09 Blood - Venous Blood Culture - Preliminary No growth after 48 hours. Progress Note: A&P Assessment and plan (1) Odynophagia: Problem details: Imp: Odynophagia--severe erosive esophagitis--path is negative for any obvious viral process, but final stains for HSV/CMV pending. He's feeling a little better on PPI and Sucralfate. Rec: Check final path, continue current treatment, advance diet as tolerated, supplements to maintain nutrition Status: Acute (2) Duodenal ulcer: Problem details: Imp: Stable. No bleeding. Path is negative for H.pylori Rec: Continue PPI, avoid all ASA/NSAIDs Status: Acute Fall Risk Details Current Medications: Current Medications Generic Name Dose Route Start Last Admin Trade Name Freq PRN Reason Stop Dose Admin Acetaminophen 650 mg 12/21/20 18:19 Acetaminophen 325 Mg Tablet PO Q6H PRN Pain, Mild (Pain Scale 1-3) Acetaminophen 650 mg 12/21/20 18:19 Acetaminophen 325 Mg Tablet PO Q6H PRN Pain, Mild (Pain Scale 1-3) Docusate Sodium 100 mg 12/21/20 21:00 12/25/20 20:34 Docusate Sodium 100 Mg Capsule PO Not Given BID [facility] Finasteride 5 mg 12/22/20 09:00 12/25/20 07:45 Finasteride 5 Mg Tablet PO 5 mg DAILY EKATERINA Administration Insulin Glargine 12 unit 12/22/20 09:00 12/25/20 07:46 Insulin Glargine,Hum.Rec.Anlog 100 Unit/Ml 10 Ml Vial SUBCUT 12 unit DAILY EKATERINA Administration Insulin Human Lispro 0 unit 12/21/20 21:00 12/25/20 20:34 Insulin Lispro 100 Unit/Ml 3 Ml Vial SUBCUT Not Given QIDACHS [facility] Protocol Lidocaine/Diphenhydr/Alum/Mg/Simeth 10 ml 12/23/20 15:47 12/24/20 23:18 Mag&Al/Sim/Diphenhyd/Lidocaine 10 Ml Oral.Susp PO 10 ml Q4H PRN Administration odynophagia Protocol Morphine Sulfate 1 mg 12/22/20 16:13 12/25/20 00:21 Morphine Sulfate 2 Mg/Ml Cartridge IVPUSH 1 mg Q4H PRN Administration Pain, Severe (Pain Scale 7-10) Ondansetron HCl 4 mg 12/21/20 18:19 12/22/20 16:06 Ondansetron Hcl 4 Mg/2 Ml Vial IVPUSH 4 mg Q8H PRN Administration Nausea and Vomiting Ondansetron HCl 4 mg 12/23/20 13:44 Ondansetron Hcl 4 Mg/2 Ml Vial IVPUSH ONCE PRN Nausea and Vomiting Pantoprazole Sodium 40 mg 12/25/20 06:30 12/25/20 16:21 Pantoprazole Sodium 40 Mg/10 Ml Vial IVPUSH 40 mg BID@0630,1630 [facility] Administration Pharmacy Consult 1 each 12/21/20 11:39 Consult Rx Perform Med Rec MISCELLANE ONCE PRN Consult order Sodium Chloride 3 ml 12/22/20 00:00 12/25/20 16:25 0.9 % Sodium Chloride Flush 3 Ml Syringe IVFLUSH 3 ml QSHIFT [facility] Administration Sucralfate 1 gm 12/24/20 16:30 12/25/20 20:29 Sucralfate Oral Suspension 1 Gm/10 Ml Oral.Susp PO 1 gm QIDACHS [facility] Administration Time Spent With Patient Time: Total time spent is greater than 50% in coordination of care (as documented) at patient's floor/unit and/or counseling patient: Time with patient: 15 - 24 minutes
[2020-12-25] MEDS: Melatonin 3 MG TABLET 6 MG PO (22:09)
[2020-12-26] MEDS: 0.9 % Sodium Chloride Flush 3 ML SYRINGE IVFLUSH ×3 (02:45→17:42)
[2020-12-26 04:00] VITALS: BP 105/64; PULSE 77; RESP 18; TEMP 36.8; O2SAT 96
[2020-12-26] MEDS: Pantoprazole Sodium 40 MG/10 ML VIAL IVPUSH ×2 (05:30→17:40)
[2020-12-26 07:01] LABS: MANUAL DIFF FLAG NO
[2020-12-26 07:13] LABS: Basophils Percent Auto 0.3 % (0-2); Eosinophils Absolute Auto 0.1 X10*3/uL (0.0-0.4); Eosinophils Percent Auto 2.4 % (0-4); Hematocrit 32.2 % (42-52); Hemoglobin 10.3 g/dl (14.0-18.0); Imm Gran Abs Auto 0.11 X10*3/uL (0.00-0.03); Imm Gran Pct Auto 1.9 % (0.0-0.4); Lymphocytes Absolute Auto 1.6 X10*3/uL (1.2-4.9); Lymphocytes Percent Auto 26.9 % (20-40); Mean Corpuscular Hemoglobin 28.5 pg (27.0-33.0); Mean Platelet Volume 10.7 fL (9.4-12.4); Monocytes Absolute Auto 0.6 X10*3/uL (0.1-1.2); Monocytes Percent Auto 9.8 % (2-11); Neutrophils Absolute Auto 3.5 X10*3/uL (2.0-8.3); Neutrophils Percent Auto 58.7 % (45-73); Platelet Count 141 X10*3/uL (160-400); Red Blood Count 3.62 X10*6/uL (4.60-5.80); Red Cell Distribution Width 15.6 % (11.0-16.0); White Blood Count 5.9 X10*3/uL (4.8-10.8)
[2020-12-26 07:23] VITALS: BP 104/56; PULSE 77; RESP 18; TEMP 36.2; O2SAT 97
[2020-12-26 07:34] LABS: Anion Gap 13 (12-20); Blood Urea Nitrogen 15 mg/dL (9-16); Calcium 7.7 mg/dL (8.4-10.2); Carbon Dioxide 21 mmol/L (22-29); Chloride 105 mmol/L (96-108); Creatinine Clr Calc Pharmacy 146.2; Estimated Glomerular Filt Rate > 60; Glucose Fasting 157 mg/dL (60-99); Potassium 3.9 mmol/L (3.3-5.1); Sodium 135 mmol/L (135-145)
[2020-12-26 07:57] LABS: Glucose, Whole Blood 154 mg/dL (60-115)
[2020-12-26] MEDS: Insulin Lispro 100 UNIT/ML 3 ML VIAL SUBCUT (08:22)
[2020-12-26] MEDS: Sucralfate Oral Suspension 1 GM/10 ML ORAL.SUSP PO ×4 (08:22→20:39)
[2020-12-26] MEDS: Insulin Glargine,Hum.rec.anlog 100 UNIT/ML 10 ML VIAL 12 UNIT SUBCUT (08:23)
[2020-12-26] MEDS: Docusate Sodium 100 MG CAPSULE PO ×2 (08:23→20:38)
[2020-12-26] MEDS: Finasteride 5 MG TABLET PO (08:23)
[2020-12-26] MEDS: Mag&Al/Sim/Diphenhyd/Lidocaine 10 ML ORAL.SUSP PO ×3 (10:43→22:13)
--- NOTE | 2020-12-26 10:52 | PC.NURSE ---
pt continues to report pain, reports Morphine and Magic mouthwouth are not helpful, but did accept Magic mouthwash. Dr. Sandoval notified, responded nothing else to give, healing will take time
[2020-12-26 11:14] VITALS: BP 110/69; PULSE 72; RESP 18; TEMP 36.7; O2SAT 97
[2020-12-26 11:34] LABS: Glucose, Whole Blood 98 mg/dL (60-115)
--- NOTE | 2020-12-26 11:36 | HO.PM.IMPN ---
Subjective Subjective Date of Service: 12/26/20 Interval History: still with odynophagia Cardiovascular Cardiovascular: Reports no additional cardiovascular complaints Respiratory Respiratory: Reports no additional respiratory complaints Physical Exam Vital Signs: Vital Signs: Last Vital Signs Temp 98.0 F 12/26/20 11:14 Pulse 72 12/26/20 11:14 Resp 18 12/26/20 11:14 BP 110/69 12/26/20 11:14 Pulse Ox 97 12/26/20 11:14 Body Mass Index 24.6 General: AO X 3, agitated Resp: CTA bilateral CVS: S1,S2,RRR GI: soft, non tender, non distended Neuro: motor grossly intact Psych: appropriate affect Objective Data Current Medications Generic Name Dose Route Start Last Admin Trade Name Freq PRN Reason Stop Dose Admin Acetaminophen 650 mg 12/21/20 18:19 Acetaminophen 325 Mg Tablet PO Q6H PRN Pain, Mild (Pain Scale 1-3) Acetaminophen 650 mg 12/21/20 18:19 Acetaminophen 325 Mg Tablet PO Q6H PRN Pain, Mild (Pain Scale 1-3) Docusate Sodium 100 mg 12/21/20 21:00 12/26/20 08:23 Docusate Sodium 100 Mg Capsule PO 100 mg BID EKATERINA Administration Finasteride 5 mg 12/22/20 09:00 12/26/20 08:23 Finasteride 5 Mg Tablet PO 5 mg DAILY EKATERINA Administration Insulin Glargine 12 unit 12/22/20 09:00 12/26/20 08:23 Insulin Glargine,Hum.Rec.Anlog 100 Unit/Ml 10 Ml Vial SUBCUT 12 unit DAILY EKATERINA Administration Insulin Human Lispro 0 unit 12/21/20 21:00 12/26/20 08:22 Insulin Lispro 100 Unit/Ml 3 Ml Vial SUBCUT 2 unit QIDACHS EKATERINA Administration Protocol Lidocaine/Diphenhydr/Alum/Mg/Simeth 10 ml 12/23/20 15:47 12/26/20 10:43 Mag&Al/Sim/Diphenhyd/Lidocaine 10 Ml Oral.Susp PO 10 ml Q4H PRN Administration odynophagia Protocol Melatonin 6 mg 12/25/20 22:01 12/25/20 22:09 Melatonin 3 Mg Tablet PO 6 mg BEDTIME PRN Administration Insomnia Morphine Sulfate 1 mg 12/22/20 16:13 12/25/20 00:21 Morphine Sulfate 2 Mg/Ml Cartridge IVPUSH 1 mg Q4H PRN Administration Pain, Severe (Pain Scale 7-10) Ondansetron HCl 4 mg 12/21/20 18:19 12/22/20 16:06 Ondansetron Hcl 4 Mg/2 Ml Vial IVPUSH 4 mg Q8H PRN Administration Nausea and Vomiting Ondansetron HCl 4 mg 12/23/20 13:44 Ondansetron Hcl 4 Mg/2 Ml Vial IVPUSH ONCE PRN Nausea and Vomiting Pantoprazole Sodium 40 mg 12/25/20 06:30 12/26/20 05:30 Pantoprazole Sodium 40 Mg/10 Ml Vial IVPUSH 40 mg BID@0630,6110 [facility] Administration Pharmacy Consult 1 each 12/21/20 11:39 Consult Rx Perform Med Rec MISCELLANE ONCE PRN Consult order Sodium Chloride 3 ml 12/22/20 00:00 12/26/20 08:23 0.9 % Sodium Chloride Flush 3 Ml Syringe IVFLUSH 3 ml QSHIFT [facility] Administration Sucralfate 1 gm 12/24/20 16:30 12/26/20 08:22 Sucralfate Oral Suspension 1 Gm/10 Ml Oral.Susp PO 1 gm QIDACHS [facility] Administration Labs CBC & Chem 7: 12/26/20 06:11 12/26/20 06:11 Microbiology Microbiology Results: Microbiology 12/21/20 12:22 Blood - Venous Blood Culture - Preliminary No growth after 48 hours. 12/21/20 13:09 Blood - Venous Blood Culture - Preliminary No growth after 48 hours. Assessment and Plan (1) Leukocytosis: Status: Acute (2) Abdominal pain: Status: Acute (3) Hematemesis: Status: Acute (4) Physical deconditioning: Status: Acute Assessment and Plan: A 70 years old male with PMH DM, BPH, GERD who presents to the hospital with 3 days increased lethargy associated with abdominal pain and multiple episodes of hematemesis of dark color material acute blood loss anemia Hematemesis EGD 12/23/20 showed severe esophagitis and duodenal bulb ulcer Follow-up pathology - no hyplori, fungal and viral path pending Continue IV Protonix, changed to bid dosing Monitor labs Hemoglobin dropped about 2 grams, now stable No further hematemesis continue ppi, carafate, magic mouthwash still reports intolerable odynophagia, inability to eat Diabetes type 2 Lantus of 20 SSI DVT PPX SCDs
[2020-12-26 15:22] VITALS: BP 116/67; PULSE 71; RESP 20; TEMP 36.4; O2SAT 98
[2020-12-26 16:13] LABS: Glucose, Whole Blood 139 mg/dL (60-115)
--- NOTE | 2020-12-26 19:10 | PC.NURSE ---
0; buttock area assessed, previously documented stage II healing downgraded to stage I, pt repositioned to L side.
[2020-12-26 19:17] VITALS: BP 107/59; PULSE 66; RESP 20; TEMP 36.1; O2SAT 98
[2020-12-26 19:47] LABS: Glucose, Whole Blood 106 mg/dL (60-115)
[2020-12-26] MEDS: Melatonin 3 MG TABLET 6 MG PO (22:10)
[2020-12-26 23:48] VITALS: BP 118/69; PULSE 97; RESP 18; TEMP 36.4; O2SAT 98
[2020-12-27] MEDS: 0.9 % Sodium Chloride Flush 3 ML SYRINGE IVFLUSH ×4 (00:18→23:41)
[2020-12-27 03:42] VITALS: BP 107/63; PULSE 73; RESP 18; TEMP 36.9; O2SAT 97
[2020-12-27] MEDS: Pantoprazole Sodium 40 MG/10 ML VIAL IVPUSH ×2 (06:09→16:38)
[2020-12-27 06:37] LABS: MANUAL DIFF FLAG NO
[2020-12-27 07:03] LABS: Basophils Percent Auto 0.2 % (0-2); Eosinophils Absolute Auto 0.1 X10*3/uL (0.0-0.4); Eosinophils Percent Auto 2.3 % (0-4); Hematocrit 33.2 % (42-52); Hemoglobin 10.4 g/dl (14.0-18.0); Imm Gran Abs Auto 0.12 X10*3/uL (0.00-0.03); Imm Gran Pct Auto 2.1 % (0.0-0.4); Lymphocytes Absolute Auto 1.7 X10*3/uL (1.2-4.9); Lymphocytes Percent Auto 29.4 % (20-40); Mean Corpuscular HGB Conc 31.3 g/dl (31.0-36.0); Mean Corpuscular Hemoglobin 27.9 pg (27.0-33.0); Mean Platelet Volume 10.6 fL (9.4-12.4); Monocytes Absolute Auto 0.6 X10*3/uL (0.1-1.2); Monocytes Percent Auto 10.3 % (2-11); Neutrophils Absolute Auto 3.2 X10*3/uL (2.0-8.3); Neutrophils Percent Auto 55.7 % (45-73); Platelet Count 169 X10*3/uL (160-400); Red Blood Count 3.73 X10*6/uL (4.60-5.80); Red Cell Distribution Width 15.9 % (11.0-16.0); White Blood Count 5.7 X10*3/uL (4.8-10.8)
[2020-12-27 07:28] LABS: Anion Gap 14 (12-20); Blood Urea Nitrogen 16 mg/dL (9-16); Calcium 8.1 mg/dL (8.4-10.2); Carbon Dioxide 24 mmol/L (22-29); Chloride 104 mmol/L (96-108); Creatinine Clr Calc Pharmacy 146.2; Estimated Glomerular Filt Rate > 60; Glucose Fasting 125 mg/dL (60-99); Potassium 4.8 mmol/L (3.3-5.1); Sodium 137 mmol/L (135-145)
[2020-12-27 07:37] VITALS: BP 103/64; PULSE 71; RESP 18; TEMP 36.2; O2SAT 98
[2020-12-27 07:44] LABS: Glucose, Whole Blood 123 mg/dL (60-115)
[2020-12-27] MEDS: Insulin Glargine,Hum.rec.anlog 100 UNIT/ML 10 ML VIAL 12 UNIT SUBCUT (08:09)
--- NOTE | 2020-12-27 09:30 | PC.NURSE ---
pt refusing morning medications, states he feels well and wants to leave. He allowed limited morning assessment.
--- NOTE | 2020-12-27 10:30 | P.PNIM_ITS ---
Subjective Subjective Date of Service: 12/27/20 Interval History: notes improvement in his odynophagia, but still having trouble eating and not interested in solids yet Cardiovascular Cardiovascular: Reports no additional cardiovascular complaints Gastrointestinal Gastrointestinal: Reports no additional gastrointestinal complaints Physical Exam Vital Signs: Vital Signs: Last Vital Signs Temp 97.1 F 12/27/20 07:37 Pulse 71 12/27/20 07:37 Resp 18 12/27/20 07:37 BP 103/64 12/27/20 07:37 Pulse Ox 98 12/27/20 07:37 Body Mass Index 24.6 General: AO X 3, agitated Resp: CTA bilateral CVS: S1,S2,RRR GI: soft, non tender, non distended Neuro: motor grossly intact Psych: appropriate affect Objective Data Current Medications Generic Name Dose Route Start Last Admin Trade Name Freq PRN Reason Stop Dose Admin Acetaminophen 650 mg 12/21/20 18:19 Acetaminophen 325 Mg Tablet PO Q6H PRN Pain, Mild (Pain Scale 1-3) Acetaminophen 650 mg 12/21/20 18:19 Acetaminophen 325 Mg Tablet PO Q6H PRN Pain, Mild (Pain Scale 1-3) Docusate Sodium 100 mg 12/21/20 21:00 12/27/20 08:12 Docusate Sodium 100 Mg Capsule PO Not Given BID EKTAERINA Finasteride 5 mg 12/22/20 09:00 12/27/20 08:12 Finasteride 5 Mg Tablet PO Not Given DAILY EKATERINA Insulin Glargine 12 unit 12/22/20 09:00 12/27/20 08:09 Insulin Glargine,Hum.Rec.Anlog 100 Unit/Ml 10 Ml Vial SUBCUT 12 unit DAILY EKATERINA Administration Insulin Human Lispro 0 unit 12/21/20 21:00 12/27/20 08:04 Insulin Lispro 100 Unit/Ml 3 Ml Vial SUBCUT Not Given QIDACHS EKATERINA Protocol Lidocaine/Diphenhydr/Alum/Mg/Simeth 10 ml 12/23/20 15:47 12/26/20 22:13 Mag&Al/Sim/Diphenhyd/Lidocaine 10 Ml Oral.Susp PO 10 ml Q4H PRN Administration odynophagia Protocol Melatonin 6 mg 12/25/20 22:01 12/26/20 22:10 Melatonin 3 Mg Tablet PO 6 mg BEDTIME PRN Administration Insomnia Morphine Sulfate 1 mg 12/22/20 16:13 12/25/20 00:21 Morphine Sulfate 2 Mg/Ml Cartridge IVPUSH 1 mg Q4H PRN Administration Pain, Severe (Pain Scale 7-10) Ondansetron HCl 4 mg 12/21/20 18:19 12/22/20 16:06 Ondansetron Hcl 4 Mg/2 Ml Vial IVPUSH 4 mg Q8H PRN Administration Nausea and Vomiting Ondansetron HCl 4 mg 12/23/20 13:44 Ondansetron Hcl 4 Mg/2 Ml Vial IVPUSH ONCE PRN Nausea and Vomiting Pantoprazole Sodium 40 mg 12/25/20 06:30 12/27/20 06:09 Pantoprazole Sodium 40 Mg/10 Ml Vial IVPUSH 40 mg BID@0630,1630 [facility] Administration Pharmacy Consult 1 each 12/21/20 11:39 Consult Rx Perform Med Rec MISCELLANE ONCE PRN Consult order Sodium Chloride 3 ml 12/22/20 00:00 12/27/20 08:12 0.9 % Sodium Chloride Flush 3 Ml Syringe IVFLUSH 3 ml QSHIFT [facility] Administration Sucralfate 1 gm 12/24/20 16:30 12/27/20 08:12 Sucralfate Oral Suspension 1 Gm/10 Ml Oral.Susp PO Not Given QIDACHS [facility] Labs CBC & Chem 7: 12/27/20 06:12 12/27/20 06:12 Microbiology Microbiology Results: Microbiology 12/21/20 12:22 Blood - Venous Blood Culture - Final No growth after 5 days. 12/21/20 13:09 Blood - Venous Blood Culture - Final No growth after 5 days. Assessment and Plan (1) Leukocytosis: Status: Acute (2) Abdominal pain: Status: Acute (3) Hematemesis: Status: Acute (4) Physical deconditioning: Status: Acute Assessment and Plan: A 70 years old male with PMH DM, BPH, GERD who presents to the hospital with 3 days increased lethargy associated with abdominal pain and multiple episodes of hematemesis of dark color material acute blood loss anemia Hematemesis EGD 12/23/20 showed severe esophagitis and duodenal bulb ulcer Follow-up pathology - no hyplori, fungal and viral path pending Continue IV Protonix, bid dosing Monitor labs Hemoglobin dropped about 2 grams, now stable No further hematemesis continue ppi, carafate, magic mouthwash started to finally report some improvement, will continue to monitor until able to tolerate significant po intake, then will discharge to rehab Diabetes type 2 Lantus of 20 SSI DVT PPX SCDs
[2020-12-27 11:13] VITALS: BP 107/62; PULSE 76; RESP 18; O2SAT 97
[2020-12-27 11:19] LABS: Glucose, Whole Blood 193 mg/dL (60-115)
[2020-12-27] MEDS: Insulin Lispro 100 UNIT/ML 3 ML VIAL SUBCUT (11:34)
[2020-12-27 15:35] VITALS: BP 111/75; PULSE 70; RESP 18; TEMP 36.3; O2SAT 98
[2020-12-27 16:10] LABS: Glucose, Whole Blood 126 mg/dL (60-115)
[2020-12-27 19:19] VITALS: BP 117/75; PULSE 85; RESP 20; TEMP 36.6; O2SAT 100
[2020-12-27 20:29] LABS: Glucose, Whole Blood 151 mg/dL (60-115)
[2020-12-27 20:39] LABS: Glucose, Whole Blood 137 mg/dL (60-115)
[2020-12-27] MEDS: Sucralfate Oral Suspension 1 GM/10 ML ORAL.SUSP PO (20:39)
[2020-12-27] MEDS: Docusate Sodium 100 MG CAPSULE PO (20:39)
[2020-12-28] VITALS: BP 105/67; PULSE 79; RESP 18; TEMP 36.9; O2SAT 98
--- NOTE | 2020-12-28 02:38 | PM.EVENT ---
Event Note Date of Service: 12/28/20 Event Note: Suicidal ideation: Patient expressed suicidal ideation to the RN. Will keep the patient on 1 on 1 observation. Suicidal precautions. Psychiatric consult. Signed section 12 form.
--- NOTE | 2020-12-28 02:48 | MHC.PIE ---
p; pt yelling out in room. when asked, pt c/o itchiness, pt also reporting i want to i; dr marshall notified; new order Puneet, one to one sitter e; will cont to moniotor
[2020-12-28] MEDS: diphenhydrAMINE HCL 25 MG TABLET PO (02:59)
[2020-12-28] MEDS: oxyCODONE HCl Immed Release 5 MG TABLET PO (03:23)
[2020-12-28 03:52] VITALS: BP 111/73; PULSE 79; RESP 18; TEMP 36.4; O2SAT 98
[2020-12-28] MEDS: Pantoprazole Sodium 40 MG/10 ML VIAL IVPUSH ×2 (05:57→16:13)
[2020-12-28 07:54] VITALS: BP 111/67; PULSE 90; RESP 18; TEMP 36.5; O2SAT 97
[2020-12-28 08:00] LABS: Glucose, Whole Blood 119 mg/dL (60-115)
[2020-12-28] MEDS: Docusate Sodium 100 MG CAPSULE PO ×2 (08:40→21:33)
[2020-12-28] MEDS: Finasteride 5 MG TABLET PO (08:40)
[2020-12-28] MEDS: Sucralfate Oral Suspension 1 GM/10 ML ORAL.SUSP PO ×4 (08:40→21:32)
[2020-12-28] MEDS: Insulin Glargine,Hum.rec.anlog 100 UNIT/ML 10 ML VIAL 12 UNIT SUBCUT (08:40)
[2020-12-28] MEDS: 0.9 % Sodium Chloride Flush 3 ML SYRINGE IVFLUSH ×2 (08:46→16:13)
[2020-12-28 11:21] LABS: Glucose, Whole Blood 158 mg/dL (60-115)
[2020-12-28 11:35] VITALS: BP 135/56; PULSE 93; RESP 20; TEMP 37.1; O2SAT 93
--- NOTE | 2020-12-28 12:01 | HO.PM.IMPN ---
Subjective Subjective Date of Service: 12/28/20 Interval History: chest discomfort, pruritis, still with odynophagia but better (chest discomfort was associated with SVT on tele, was bried and broke on its own) Cardiovascular Cardiovascular: Reports no additional cardiovascular complaints Respiratory Respiratory: Reports no additional respiratory complaints Physical Exam Vital Signs: Vital Signs: Last Vital Signs Temp 98.7 F 12/28/20 11:35 Pulse 93 12/28/20 11:35 Resp 20 12/28/20 11:35 BP 135/56 L 12/28/20 11:35 Pulse Ox 93 12/28/20 11:35 Body Mass Index 24.6 General: AO X 3, agitated Resp: CTA bilateral CVS: S1,S2,RRR GI: soft, non tender, non distended Neuro: motor grossly intact Psych: appropriate affect Objective Data Current Medications Generic Name Dose Route Start Last Admin Trade Name Freq PRN Reason Stop Dose Admin Acetaminophen 650 mg 12/21/20 18:19 Acetaminophen 325 Mg Tablet PO Q6H PRN Pain, Mild (Pain Scale 1-3) Acetaminophen 650 mg 12/21/20 18:19 Acetaminophen 325 Mg Tablet PO Q6H PRN Pain, Mild (Pain Scale 1-3) Diphenhydramine HCl 25 mg 12/28/20 09:40 Diphenhydramine Hcl 50 Mg/Ml Vial IVPUSH Q6H PRN pruritis Docusate Sodium 100 mg 12/21/20 21:00 12/28/20 08:40 Docusate Sodium 100 Mg Capsule PO 100 mg BID EKATERINA Administration Finasteride 5 mg 12/22/20 09:00 12/28/20 08:40 Finasteride 5 Mg Tablet PO 5 mg DAILY EKATERINA Administration Insulin Glargine 12 unit 12/22/20 09:00 12/28/20 08:40 Insulin Glargine,Hum.Rec.Anlog 100 Unit/Ml 10 Ml Vial SUBCUT 12 unit DAILY EKATERINA Administration Insulin Human Lispro 0 unit 12/21/20 21:00 12/28/20 08:32 Insulin Lispro 100 Unit/Ml 3 Ml Vial SUBCUT Not Given QIDACHS [facility] Protocol Lidocaine/Diphenhydr/Alum/Mg/Simeth 10 ml 12/23/20 15:47 12/26/20 22:13 Mag&Al/Sim/Diphenhyd/Lidocaine 10 Ml Oral.Susp PO 10 ml Q4H PRN Administration odynophagia Protocol Melatonin 6 mg 12/25/20 22:01 12/26/20 22:10 Melatonin 3 Mg Tablet PO 6 mg BEDTIME PRN Administration Insomnia Ondansetron HCl 4 mg 12/21/20 18:19 12/22/20 16:06 Ondansetron Hcl 4 Mg/2 Ml Vial IVPUSH 4 mg Q8H PRN Administration Nausea and Vomiting Ondansetron HCl 4 mg 12/23/20 13:44 Ondansetron Hcl 4 Mg/2 Ml Vial IVPUSH ONCE PRN Nausea and Vomiting Pantoprazole Sodium 40 mg 12/25/20 06:30 12/28/20 05:57 Pantoprazole Sodium 40 Mg/10 Ml Vial IVPUSH 40 mg BID@[id number],0930 [facility] Administration Pharmacy Consult 1 each 12/21/20 11:39 Consult Rx Perform Med Rec MISCELLANE ONCE PRN Consult order Sodium Chloride 3 ml 12/22/20 00:00 12/28/20 08:46 0.9 % Sodium Chloride Flush 3 Ml Syringe IVFLUSH 3 ml QSHIFT [facility] Administration Sucralfate 1 gm 12/24/20 16:30 12/28/20 08:40 Sucralfate Oral Suspension 1 Gm/10 Ml Oral.Susp PO 1 gm QIDACHS [facility] Administration Labs CBC & Chem 7: 12/27/20 06:12 12/27/20 06:12 Microbiology Microbiology Results: Microbiology 12/21/20 12:22 Blood - Venous Blood Culture - Final No growth after 5 days. 12/21/20 13:09 Blood - Venous Blood Culture - Final No growth after 5 days. Assessment and Plan (1) Leukocytosis: Status: Acute (2) Abdominal pain: Status: Acute (3) Hematemesis: Status: Acute (4) Physical deconditioning: Status: Acute Assessment and Plan: A 70 years old male with PMH DM, BPH, GERD who presents to the hospital with 3 days increased lethargy associated with abdominal pain and multiple episodes of hematemesis of dark color material acute blood loss anemia Hematemesis EGD 12/23/20 showed severe esophagitis and duodenal bulb ulcer Follow-up pathology - no hyplori, fungal and viral path pending Continue IV Protonix, bid dosing, (patient occassionally refuses oral meds, so will keep iv for now) Hemoglobin dropped about 2 grams, now stable No further hematemesis continue ppi, carafate, magic mouthwash started to finally report some improvement yesterday, but does not want solid foods SVT now in NSR, cardio eval started on lopressor pruritis benadryl as needed reported SI patient is not suicidal, he used the phrase I am so itchy I want to kill myself , clearly a figure of speech (confirmed by patient himself) and does not require sitter or care team evaluation Diabetes type 2 Lantus of 20 SSI DVT PPX SCDs
--- NOTE | 2020-12-28 12:10 | P.CONCA_ITS ---
History of Present Illness History of Present Illness Date of Service: 12/28/20 Requesting physician: Alex Sandoval Chief complaint: SVT Narrative: 70-year-old gentleman past medical history significant for diabetes, gastroesophageal reflux disease and BPH who is presenting with hematemesis and abdominal pain. He underwent EGD which showed severe esophagitis and duodenal bulb ulcer. He was treated with PPI. His hemoglobin drop approximately 2 g but has been stable. He underwent cardiac catheterization in May 2019 for abnormal stress test showing inferior perfusion defect. He did not have any significant coronary artery disease on the angiogram. He had consulted today because he had run of supraventricular tachycardia with arm discomfort. He is feeling better now. The episode was short lived and self-limiting. He is saying he is not feeling well and feels weak all over the body. Review of Systems Review of Systems: Weakness all over Yes all other systems are reviewed and are negative [facility] Past Medical History Medical History Bacteremia due to Gram-positive bacteria Bacteremia due to Gram-positive bacteria BPH loc w urin obs/LUTS Chronic GERD COVID-19 Diabetes type 2, controlled Irritable bowel syndrome Nephrolithiasis Family History Family History Father Medical history unknown Mother Medical history unknown Surgical History Surgical History History of kidney stones Social History Social History Household Members: None Housing: [facility] Alcohol intake: never Smoking Status: Never smoker Tobacco Type: Cigarette Use of substances other than those prescribed or required for medical reasons: No Currently Displaying Signs/Symptoms of Drug Intoxication Withdrawal: No Have you been hit, kicked, punched, or otherwise hurt by someone within the past year? If so, by whom?: No Do you feel safe in your current relationship?: No Current Relationship Is there a partner from a previous relationship who is making you feel unsafe now?: No Are you made to feel afraid or neglected: No Advance Directives: Yes Advance Directives on File: Yes Advance Directives Date on File: 12/17/20 Do you have thoughts of harming others: None Do you have a plan to hurt others: No Plan Recently lost weight without trying: Unsure service: No Current occupational status: retired Meds Allergies Allergy/AdvReac Type Severity Reaction Status Date / Time metronidazole [Flagyl] Allergy Unknown Insomnia Verified 07/28/20 14:07 TOURNIQUET FROM IV KIT Allergy Intermediate HIVES Uncoded 05/28/20 16:59 Active Medications: Current Medications Generic Name Dose Route Start Last Admin Trade Name Freq PRN Reason Stop Dose Admin Acetaminophen 650 mg 12/21/20 18:19 Acetaminophen 325 Mg Tablet PO Q6H PRN Pain, Mild (Pain Scale 1-3) Acetaminophen 650 mg 12/21/20 18:19 Acetaminophen 325 Mg Tablet PO Q6H PRN Pain, Mild (Pain Scale 1-3) Diphenhydramine HCl 25 mg 12/28/20 09:40 Diphenhydramine Hcl 50 Mg/Ml Vial IVPUSH Q6H PRN pruritis Docusate Sodium 100 mg 12/21/20 21:00 12/28/20 08:40 Docusate Sodium 100 Mg Capsule PO 100 mg BID EKATERINA Administration Finasteride 5 mg 12/22/20 09:00 12/28/20 08:40 Finasteride 5 Mg Tablet PO 5 mg DAILY EKATERINA Administration Insulin Glargine 12 unit 12/22/20 09:00 12/28/20 08:40 Insulin Glargine,Hum.Rec.Anlog 100 Unit/Ml 10 Ml Vial SUBCUT 12 unit DAILY EKATERINA Administration Insulin Human Lispro 0 unit 12/21/20 21:00 12/28/20 08:32 Insulin Lispro 100 Unit/Ml 3 Ml Vial SUBCUT Not Given QIDACHS EKATERINA Protocol Lidocaine/Diphenhydr/Alum/Mg/Simeth 10 ml 12/23/20 15:47 12/26/20 22:13 Mag&Al/Sim/Diphenhyd/Lidocaine 10 Ml Oral.Susp PO 10 ml Q4H PRN Administration odynophagia Protocol Melatonin 6 mg 12/25/20 22:01 12/26/20 22:10 Melatonin 3 Mg Tablet PO 6 mg BEDTIME PRN Administration Insomnia Ondansetron HCl 4 mg 12/21/20 18:19 12/22/20 16:06 Ondansetron Hcl 4 Mg/2 Ml Vial IVPUSH 4 mg Q8H PRN Administration Nausea and Vomiting Ondansetron HCl 4 mg 12/23/20 13:44 Ondansetron Hcl 4 Mg/2 Ml Vial IVPUSH ONCE PRN Nausea and Vomiting Pantoprazole Sodium 40 mg 12/25/20 06:30 12/28/20 05:57 Pantoprazole Sodium 40 Mg/10 Ml Vial IVPUSH 40 mg BID@0630,1630 [facility] Administration Pharmacy Consult 1 each 12/21/20 11:39 Consult Rx Perform Med Rec MISCELLANE ONCE PRN Consult order Sodium Chloride 3 ml 12/22/20 00:00 12/28/20 08:46 0.9 % Sodium Chloride Flush 3 Ml Syringe IVFLUSH 3 ml QSHIFT [facility] Administration Sucralfate 1 gm 12/24/20 16:30 12/28/20 08:40 Sucralfate Oral Suspension 1 Gm/10 Ml Oral.Susp PO 1 gm QIDACHS [facility] Administration Physical Exam Vital Signs: Vital Signs: Last Vital Signs Temp 98.7 F 12/28/20 11:35 Pulse 93 12/28/20 11:35 Resp 20 12/28/20 11:35 BP 135/56 L 12/28/20 11:35 Pulse Ox 93 12/28/20 11:35 Body Mass Index 24.6 GENERAL APPEARANCE: Looks fatigued. HEENT: unremarkable. HEAD: normocephalic, atraumatic. NECK/THYROID: no carotid bruit, no jugular venous distention. SKIN: no suspicious lesions, warm and dry. HEART: no murmurs, regular rate and rhythm, S1, S2 normal. LUNGS: clear to auscultation bilaterally. ABDOMEN: normal, bowel sounds present, soft, nontender, nondistended. EXTREMITIES: no edema. PERIPHERAL PULSES: equal. NEUROLOGIC: nonfocal, alert and oriented. PSYCH: mood/affect full range. Results Labs and Meds Result diagrams: 12/27/20 06:12 12/27/20 06:12 Lab results: Laboratory Results - last 24 hr 12/27/20 12/27/20 12/27/20 16:07 20:20 20:34 POC Glucose 126 H 151 H 137 H 12/28/20 12/28/20 07:56 11:16 POC Glucose 119 H 158 H Assessment and Plan (1) SVT (supraventricular tachycardia): Status: Acute 70-year-old gentleman here for hematemesis and is being treated appropriately. He had run of supraventricular tachycardia with some palpitations and left arm discomfort. He has no coronary disease based on May 2019 cardiac catheterization report. Please start low-dose metoprolol 25 mg twice a day. He is agreeable to take it. Thank you for allowing me to participate in the care of your patient. Please feel free to contact me if you have any questions.
[2020-12-28] MEDS: Insulin Lispro 100 UNIT/ML 3 ML VIAL SUBCUT ×2 (12:16→16:13)
[2020-12-28] MEDS: diphenhydrAMINE HCL 50 MG/ML VIAL 25 MG IVPUSH (12:21)
--- NOTE | 2020-12-28 13:04 | MHC.CLN ---
F/U PT CONTINUES RECEIVING F/L DIET PT WITH INCREASED NUTRITION NEEDS R/T PRESSURE INJURY PT RECEIVING ENSURE TID AND MIKI TO INCREASE KCALS AND PROMOTE WOUND HEALING SUPPLEMENT TO PROVIDE 1210KCALS, 65G PROTEIN NOTED SKIN FROM STAGE 2 TO STAGE 1 MONITOR BS AND PO INTAKE CLOSELY
[2020-12-28 15:22] VITALS: BP 111/70; PULSE 83; RESP 18; TEMP 36.5; O2SAT 99
[2020-12-28 16:09] LABS: Glucose, Whole Blood 179 mg/dL (60-115)
[2020-12-28] MEDS: Milk of Magnesia 30 ML ORAL.SUSP 15 ML PO (16:50)
[2020-12-28 19:18] VITALS: BP 110/70; PULSE 94; RESP 20; TEMP 36.4; O2SAT 97
[2020-12-28 20:04] LABS: Glucose, Whole Blood 143 mg/dL (60-115)
[2020-12-28 21:35] LABS: INTERNATIONAL NORM RATIO 1.2 (0.9-1.1); Prothrombin Time 14.6 SEC (10.8-13.0)
[2020-12-28 21:38] LABS: PTT Heparin Drip 33.4 SEC (53-77.9)
[2020-12-28 22:00] VITALS: BMI 24.6
[2020-12-28] MEDS: Heparin Sodium,Porcine/1/2NS 25,000 UNIT/250 ML IV.SOLN 10.6 UNIT IVCONT (23:03)
[2020-12-29] VITALS (8 sets, daily range): BP systolic 103–147; BP diastolic 64–84; PULSE 69–90; RESP 16–20; TEMP 36–36.6; O2SAT 94–99
[2020-12-29] MEDS: Acetaminophen 325 MG TABLET 650 MG PO (01:12)
[2020-12-29] MEDS: iohexoL 350 MG/ML 100 ML INFUS..BTL 65 ML IV (01:22)
--- NOTE | 2020-12-29 04:11 | PC.NURSE ---
Late entry; 12/28/20 [id number] shift 2300; per md order, heparin drip initiated with second RN as witness. Heparin drip, doserate of 14 units/kg/hr, with infusion rate of 10.59 mls/hr. Next PTT due at 0500 12/29/20.
[2020-12-29 04:59] LABS: Hematocrit 33.5 % (42-52); Hemoglobin 10.6 g/dl (14.0-18.0); Mean Corpuscular HGB Conc 31.6 g/dl (31.0-36.0); Mean Corpuscular Volume 88.4 fL (80-98); Mean Platelet Volume 10.2 fL (9.4-12.4); Platelet Count 191 X10*3/uL (160-400); Red Blood Count 3.79 X10*6/uL (4.60-5.80); Red Cell Distribution Width 16.1 % (11.0-16.0); White Blood Count 6.9 X10*3/uL (4.8-10.8)
[2020-12-29 05:14] LABS: PTT Heparin Drip 81.4 SEC (53-77.9)
[2020-12-29 05:33] LABS: Anion Gap 13 (12-20); Blood Urea Nitrogen 17 mg/dL (9-16); Carbon Dioxide 22 mmol/L (22-29); Chloride 104 mmol/L (96-108); Creatinine Clr Calc Pharmacy 152.7; Estimated Glomerular Filt Rate > 60; Glucose Fasting 117 mg/dL (60-99); Potassium 3.9 mmol/L (3.3-5.1); Sodium 135 mmol/L (135-145)
[2020-12-29] MEDS: Pantoprazole Sodium 40 MG/10 ML VIAL IVPUSH ×2 (05:49→15:54)
[2020-12-29 07:06] LABS: Glucose, Whole Blood 106 mg/dL (60-115)
[2020-12-29 07:15] LABS: INTERNATIONAL NORM RATIO 1.3 (0.9-1.1); Prothrombin Time 15.2 SEC (10.8-13.0)
--- NOTE | 2020-12-29 08:19 | MHC.CM.PN ---
dc plan remains the same at this time, for patient to return to [facility]. cm to cont. to follow.
[2020-12-29] MEDS: Docusate Sodium 100 MG CAPSULE PO ×2 (08:22→22:36)
[2020-12-29] MEDS: Finasteride 5 MG TABLET PO (08:22)
[2020-12-29] MEDS: Insulin Glargine,Hum.rec.anlog 100 UNIT/ML 10 ML VIAL 12 UNIT SUBCUT (08:22)
[2020-12-29] MEDS: 0.9 % Sodium Chloride Flush 3 ML SYRINGE IVFLUSH ×3 (08:23→21:43)
[2020-12-29] MEDS: Sucralfate Oral Suspension 1 GM/10 ML ORAL.SUSP PO ×4 (08:23→21:38)
[2020-12-29 10:25] LABS: Glucose, Whole Blood 147 mg/dL (60-115)
[2020-12-29 11:37] LABS: PTT Heparin Drip 86.8 SEC (53-77.9)
[2020-12-29 12:08] LABS: Troponin-I High Sensitivity < 3.5 ng/L (<3.5-35.0)
[2020-12-29 12:11] LABS: Anion Gap 12 (12-20); Blood Urea Nitrogen 20 mg/dL (9-16); Calcium 8.2 mg/dL (8.4-10.2); Carbon Dioxide 24 mmol/L (22-29); Chloride 103 mmol/L (96-108); Creatinine Clr Calc Pharmacy 134.7; Estimated Glomerular Filt Rate > 60; Glucose Random 191 mg/dL (60-115); Potassium 4.7 mmol/L (3.3-5.1); Sodium 134 mmol/L (135-145)
--- NOTE | 2020-12-29 12:21 | HO.PM.IMPN ---
Subjective Subjective Date of Service: 12/29/20 Interval History: odynophagia and chest pain improved. was diagnosied with dvt and pe overnight, started on heparin without gi bleed so far Cardiovascular Cardiovascular: Reports no additional cardiovascular complaints Genitourinary Genitourinary: Reports no additional male genitourinary complaints Physical Exam Vital Signs: Vital Signs: Last Vital Signs Temp 97.3 F 12/29/20 10:14 Pulse 77 12/29/20 10:14 Resp 18 12/29/20 10:14 BP 104/70 12/29/20 10:14 Pulse Ox 98 12/29/20 10:14 Body Mass Index 24.6 General: AO X 3, frail Resp: CTA bilateral CVS: S1,S2,RRR, 2-3+ edema GI: soft, non tender, non distended Neuro: motor grossly intact Psych: appropriate affect Objective Data Current Medications Generic Name Dose Route Start Last Admin Trade Name Freq PRN Reason Stop Dose Admin Acetaminophen 650 mg 12/21/20 18:19 12/29/20 01:12 Acetaminophen 325 Mg Tablet PO 650 mg Q6H PRN Administration Pain, Mild (Pain Scale 1-3) Acetaminophen 650 mg 12/21/20 18:19 Acetaminophen 325 Mg Tablet PO Q6H PRN Pain, Mild (Pain Scale 1-3) Diphenhydramine HCl 25 mg 12/28/20 09:40 12/28/20 12:21 Diphenhydramine Hcl 50 Mg/Ml Vial IVPUSH 25 mg Q6H PRN Administration pruritis Docusate Sodium 100 mg 12/21/20 21:00 12/29/20 08:22 Docusate Sodium 100 Mg Capsule PO 100 mg BID EKATERINA Administration Finasteride 5 mg 12/22/20 09:00 12/29/20 08:22 Finasteride 5 Mg Tablet PO 5 mg DAILY EKATERINA Administration Heparin Sodium (Porcine) 3,000 unit 12/28/20 20:55 Heparin Sodium,Porcine 5,000 Unit/Ml Vial 40 unit/kg (3000 unit) IVPUSH BOLUS PRN 40 unit/kg - Heparin Protocol Heparin Sodium (Porcine) 6,100 unit 12/28/20 20:55 Heparin Sodium,Porcine 5,000 Unit/Ml Vial 80 unit/kg (6100 unit) IVPUSH BOLUS PRN 80 unit/kg - Heparin Protocol Heparin Sodium/Sodium Chloride 25,000 unit in 250 mls @ 0 mls/hr 12/28/20 21:00 12/29/20 12:08 IVCONT 0 units/kg/hr .Q0M [facility] 0 mls/hr Titration Protocol Per Protocol Insulin Glargine 12 unit 12/22/20 09:00 12/29/20 08:22 Insulin Glargine,Hum.Rec.Anlog 100 Unit/Ml 10 Ml Vial SUBCUT 12 unit DAILY [facility] Administration Insulin Human Lispro 0 unit 12/21/20 21:00 12/29/20 11:43 Insulin Lispro 100 Unit/Ml 3 Ml Vial SUBCUT Not Given QIDACHS [facility] Protocol Lidocaine/Diphenhydr/Alum/Mg/Simeth 10 ml 12/23/20 15:47 12/26/20 22:13 Mag&Al/Sim/Diphenhyd/Lidocaine 10 Ml Oral.Susp PO 10 ml Q4H PRN Administration odynophagia Protocol Melatonin 6 mg 12/25/20 22:01 12/26/20 22:10 Melatonin 3 Mg Tablet PO 6 mg BEDTIME PRN Administration Insomnia Ondansetron HCl 4 mg 12/21/20 18:19 12/22/20 16:06 Ondansetron Hcl 4 Mg/2 Ml Vial IVPUSH 4 mg Q8H PRN Administration Nausea and Vomiting Ondansetron HCl 4 mg 12/23/20 13:44 Ondansetron Hcl 4 Mg/2 Ml Vial IVPUSH ONCE PRN Nausea and Vomiting Pantoprazole Sodium 40 mg 12/25/20 06:30 12/29/20 05:49 Pantoprazole Sodium 40 Mg/10 Ml Vial IVPUSH 40 mg BID@0630,1630 [facility] Administration Pharmacy Consult 1 each 12/21/20 11:39 Consult Rx Perform Med Rec MISCELLANE ONCE PRN Consult order Sodium Chloride 3 ml 12/22/20 00:00 12/29/20 08:23 0.9 % Sodium Chloride Flush 3 Ml Syringe IVFLUSH 3 ml QSHIFT [facility] Administration Sucralfate 1 gm 12/24/20 16:30 12/29/20 11:48 Sucralfate Oral Suspension 1 Gm/10 Ml Oral.Susp PO 1 gm QIDACHS [facility] Administration Labs CBC & Chem 7: 12/29/20 04:38 12/29/20 11:17 Microbiology Microbiology Results: Microbiology 12/21/20 12:22 Blood - Venous Blood Culture - Final No growth after 5 days. 12/21/20 13:09 Blood - Venous Blood Culture - Final No growth after 5 days. Assessment and Plan (1) Leukocytosis: Status: Acute (2) Abdominal pain: Status: Acute (3) Hematemesis: Status: Acute (4) Physical deconditioning: Status: Acute Assessment and Plan: A 70 years old male with PMH DM, BPH, GERD who presents to the hospital with 3 days increased lethargy associated with abdominal pain and multiple episodes of hematemesis of dark color material, now diagnoised with dvt and PE. acute blood loss anemia Hematemesis EGD 12/23/20 showed severe esophagitis and duodenal bulb ulcer Follow-up pathology - no hyplori, fungal and viral path pending Continue IV Protonix, bid dosing, (patient occassionally refuses oral meds, so will keep iv for now) Hemoglobin now stable No further hematemesis continue ppi, carafate, magic mouthwash started to finally report some improvement, but does not want solid foods DVT/PE provoked - recent covid, hospitalization with inability to receive pharmaceutical dvt prophylaxis due to gi bledd started tentatively on iv heparin, monitoring closely high risk for GI bleed due to above and will not tolerate further clot burden as already showing signs of RV strain despite normotension and no hypoxia, therefore, will pursue IVC filter, pulmnonary eval SVT do to pe, continue lopressor pruritis benadryl as needed reported SI patient is not suicidal, he used the phrase I am so itchy I want to kill myself , clearly a figure of speech (confirmed by patient himself) and does not require sitter or care team evaluation Diabetes type 2 Lantus of 20 SSI DVT PPX SCDs
[2020-12-29 13:24] LABS: B Type Natriuretic Peptide 23 pg/mL (<100)
--- NOTE | 2020-12-29 15:43 | PM.CNPUL ---
History of Present Illness History of Present Illness Consult date: 12/29/20 Requesting physician: Alex Sandoval Reason for consult: other (Pulmonary embolism) Chief complaint: SVT Narrative: 70-year-old gentleman with underlying history of diabetes mellitus, BPH, recent hospitalization for COVID-19 requiring intubation, admitted on 12/21/2020 with hematemesis and abdominal pain. Patient has had an EGD on 12/26/2020 demonstrating severe erosive esophagitis and duodenal ulcer. Patient developed progressive lower extremity edema and on 12/28/2020 lower extremity Dopplers positive for large bilateral lower extremity deep venous thrombosis. His CT chest from earlier this a.m. showed bilateral pulmonary emboli a with imaging evidence of right heart strain. Though, his BNP and troponin are normal. Review of Systems Constitutional: Constitutional: Denies daytime sleepiness, Denies excessive sweating, Denies fatigue, Denies fever(s), Denies lethargy, Denies malaise, Denies night sweats, Denies snoring and Denies weight loss Eyes: Eyes: Denies blurry vision and Denies itchy eyes ENT: Denies nasal congestion, Denies post nasal drip, Denies sinus pain, Denies sinus pressure and Denies other ( Thrush) Cardiovascular: Cardiovascular: Denies chest pain, Reports pedal edema, Reports dyspnea, Denies orthopnea and Denies paroxysmal nocturnal dyspnea Respiratory: Respiratory: Denies cough, Denies hemoptysis, Denies excessive phlegm production, Reports dyspnea, Denies snoring and Denies wheezing Gastrointestinal: Gastrointestinal: Denies abdominal pain and Denies heartburn Musculoskeletal: Musculoskeletal: Denies myalgias, Denies arthralgias and Denies joint swelling Integumentary/Breasts: Skin/Breast: Denies rash Neurologic: Denies memory loss and Denies seizure-like activity Psychiatric: Psychiatric: Denies abnormal sleep pattern, Denies anxiety and Denies memory loss Endocrine: Endocrine: Denies excessive sweating, Denies fatigue and Denies heat intolerance Hematologic/Lymphatic: Hematologic/Lymphatic: Denies easy bruising Allergic/Immunologic: Allergic/Immunologic: Denies itchy eyes, Denies seasonal rhinorrhea and Denies wheezing PMFSH Past Medical History Medical History (Updated 12/29/20 @ 07:57 by Alex Sandoval MD) Bacteremia due to Gram-positive bacteria Bacteremia due to Gram-positive bacteria BPH loc w urin obs/LUTS Chronic GERD COVID-19 Diabetes type 2, controlled DVT (deep venous thrombosis) Irritable bowel syndrome Nephrolithiasis Pulmonary emboli Family History Family History Father Medical history unknown Mother Medical history unknown Surgical History Surgical History History of kidney stones Social History Social History Household Members: None Housing: [facility] Alcohol intake: never Smoking Status: Never smoker Tobacco Type: Cigarette Use of substances other than those prescribed or required for medical reasons: No Currently Displaying Signs/Symptoms of Drug Intoxication Withdrawal: No Have you been hit, kicked, punched, or otherwise hurt by someone within the past year? If so, by whom?: No Do you feel safe in your current relationship?: No Current Relationship Is there a partner from a previous relationship who is making you feel unsafe now?: No Are you made to feel afraid or neglected: No Advance Directives: Yes Advance Directives on File: Yes Advance Directives Date on File: 12/17/20 Do you have thoughts of harming others: None Do you have a plan to hurt others: No Plan Recently lost weight without trying: Unsure service: No Current occupational status: retired Meds Allergies Allergy/AdvReac Type Severity Reaction Status Date / Time metronidazole [Flagyl] Allergy Unknown Insomnia Verified 07/28/20 14:07 TOURNIQUET FROM IV KIT Allergy Intermediate HIVES Uncoded 05/28/20 16:59 Active Medications: Current Medications Generic Name Dose Route Start Last Admin Trade Name Freq PRN Reason Stop Dose Admin Acetaminophen 650 mg 12/21/20 18:19 12/29/20 01:12 Acetaminophen 325 Mg Tablet PO 650 mg Q6H PRN Administration Pain, Mild (Pain Scale 1-3) Acetaminophen 650 mg 12/21/20 18:19 Acetaminophen 325 Mg Tablet PO Q6H PRN Pain, Mild (Pain Scale 1-3) Diphenhydramine HCl 25 mg 12/28/20 09:40 12/28/20 12:21 Diphenhydramine Hcl 50 Mg/Ml Vial IVPUSH 25 mg Q6H PRN Administration pruritis Docusate Sodium 100 mg 12/21/20 21:00 12/29/20 08:22 Docusate Sodium 100 Mg Capsule PO 100 mg BID EKATERINA Administration Finasteride 5 mg 12/22/20 09:00 12/29/20 08:22 Finasteride 5 Mg Tablet PO 5 mg DAILY EKATERINA Administration Heparin Sodium (Porcine) 3,000 unit 12/28/20 20:55 Heparin Sodium,Porcine 5,000 Unit/Ml Vial 40 unit/kg (3000 unit) IVPUSH BOLUS PRN 40 unit/kg - Heparin Protocol Heparin Sodium (Porcine) 6,100 unit 12/28/20 20:55 Heparin Sodium,Porcine 5,000 Unit/Ml Vial 80 unit/kg (6100 unit) IVPUSH BOLUS PRN 80 unit/kg - Heparin Protocol Heparin Sodium/Sodium Chloride 25,000 unit in 250 mls @ 0 mls/hr 12/28/20 21:00 12/29/20 12:08 IVCONT 0 units/kg/hr .Q0M EKATERINA 0 mls/hr Titration Protocol Per Protocol Insulin Glargine 12 unit 12/22/20 09:00 12/29/20 08:22 Insulin Glargine,Hum.Rec.Anlog 100 Unit/Ml 10 Ml Vial SUBCUT 12 unit DAILY [facility] Administration Insulin Human Lispro 0 unit 12/21/20 21:00 12/29/20 11:43 Insulin Lispro 100 Unit/Ml 3 Ml Vial SUBCUT Not Given QIDACHS [facility] Protocol Lidocaine/Diphenhydr/Alum/Mg/Simeth 10 ml 12/23/20 15:47 12/26/20 22:13 Mag&Al/Sim/Diphenhyd/Lidocaine 10 Ml Oral.Susp PO 10 ml Q4H PRN Administration odynophagia Protocol Melatonin 6 mg 12/25/20 22:01 12/26/20 22:10 Melatonin 3 Mg Tablet PO 6 mg BEDTIME PRN Administration Insomnia Ondansetron HCl 4 mg 12/21/20 18:19 12/22/20 16:06 Ondansetron Hcl 4 Mg/2 Ml Vial IVPUSH 4 mg Q8H PRN Administration Nausea and Vomiting Ondansetron HCl 4 mg 12/23/20 13:44 Ondansetron Hcl 4 Mg/2 Ml Vial IVPUSH ONCE PRN Nausea and Vomiting Pantoprazole Sodium 40 mg 12/25/20 06:30 12/29/20 05:49 Pantoprazole Sodium 40 Mg/10 Ml Vial IVPUSH 40 mg BID@[id number] [facility] Administration Pharmacy Consult 1 each 12/21/20 11:39 Consult Rx Perform Med Rec MISCELLANE ONCE PRN Consult order Sodium Chloride 3 ml 12/22/20 00:00 12/29/20 08:23 0.9 % Sodium Chloride Flush 3 Ml Syringe IVFLUSH 3 ml QSHIFT [facility] Administration Sucralfate 1 gm 12/24/20 16:30 12/29/20 11:48 Sucralfate Oral Suspension 1 Gm/10 Ml Oral.Susp PO 1 gm QIDACHS [facility] Administration Physical Exam Vital Signs: Vital Signs: Last Vital Signs Temp 97.4 F 12/29/20 15:41 Pulse 89 12/29/20 15:41 Resp 20 12/29/20 15:41 BP 131/71 12/29/20 15:41 Pulse Ox 99 12/29/20 15:41 Body Mass Index 24.6 Const: General: no acute distress, alert and awake Eyes: Sclerae: sclerae normal EOM: EOMs intact bilaterally Neck: Neck: Yes no lymphadenopathy, Yes trachea midline and Yes supple Resp: Effort & Inspection: normal respiratory effort and no respiratory distress Auscultation: clear to auscultation bilaterally Cardio: Rate: regular rate Rhythm: regular rhythm Heart sounds: no gallops, no murmurs and no rubs GI: Palpation (GI): Soft to palpation and Other GI palpation findings present ( Nontender) Auscultation: normal bowel sounds Extrem: General: No clubbing, No cyanosis and Yes pedal edema (Left greater than right) Results Laboratory Findings CBC and BMP: 12/29/20 04:38 12/29/20 11:17 ABG, PT/INR, D-dimer: PT/INR, D-dimer PT 15.2 SEC (10.8-13.0) H 12/29/20 04:37 PT Cancelled 12/29/20 04:37 INR 1.3 (0.9-1.1) H 12/29/20 04:37 INR Cancelled 12/29/20 04:37 Abnormal lab findings: Abnormal Labs 12/21/20 12/21/20 12/21/20 12:22 12:22 12:22 WBC 19.1 H RBC Hgb 13.3 L Hct MCHC RDW Plt Count Immature Gran % (Auto) 0.6 H Neut % (Auto) 81.8 H Lymph % (Auto) 11.4 L Abs Immat Gran (auto) 0.11 H Absolute Neuts (auto) 15.7 H PT 14.9 H INR 1.3 H PTT (Heparin Protocol) Sodium Chloride Carbon Dioxide BUN 42 H Creatinine POC Glucose Random Glucose 254 H D Fasting Glucose Calcium Total Bilirubin Alkaline Phosphatase Albumin Urine Blood 12/21/20 12/21/20 12/22/20 12:22 21:36 07:00 WBC 13.8 H RBC 4.12 L Hgb 11.7 L Hct 37.6 L MCHC RDW Plt Count 145 L D Immature Gran % (Auto) 0.6 H Neut % (Auto) 76.5 H Lymph % (Auto) 16.8 L Abs Immat Gran (auto) 0.08 H Absolute Neuts (auto) 10.5 H PT INR PTT (Heparin Protocol) Sodium Chloride Carbon Dioxide BUN Creatinine POC Glucose 226 H Random Glucose Fasting Glucose Calcium Total Bilirubin 1.1 H Alkaline Phosphatase 122 H D Albumin 3.2 L Urine Blood 12/22/20 12/22/20 12/22/20 07:00 07:18 09:05 WBC RBC Hgb Hct MCHC RDW Plt Count Immature Gran % (Auto) Neut % (Auto) Lymph % (Auto) Abs Immat Gran (auto) Absolute Neuts (auto) PT INR PTT (Heparin Protocol) Sodium Chloride Carbon Dioxide BUN 31 H Creatinine POC Glucose 158 H 186 H Random Glucose 173 H Fasting Glucose Calcium 8.2 L D Total Bilirubin Alkaline Phosphatase Albumin Urine Blood 12/22/20 12/22/20 12/22/20 10:47 11:42 15:57 WBC RBC Hgb Hct MCHC RDW Plt Count Immature Gran % (Auto) Neut % (Auto) Lymph % (Auto) Abs Immat Gran (auto) Absolute Neuts (auto) PT INR PTT (Heparin Protocol) Sodium Chloride Carbon Dioxide BUN Creatinine POC Glucose 166 H 124 H Random Glucose Fasting Glucose Calcium Total Bilirubin Alkaline Phosphatase Albumin Urine Blood 1+ H 12/22/20 12/22/20 12/23/20 17:31 20:29 05:35 WBC RBC Hgb Hct MCHC RDW Plt Count Immature Gran % (Auto) Neut % (Auto) Lymph % (Auto) Abs Immat Gran (auto) Absolute Neuts (auto) PT INR PTT (Heparin Protocol) Sodium Chloride 109 H Carbon Dioxide 21 L BUN 26 H Creatinine POC Glucose 158 H 141 H Random Glucose Fasting Glucose 127 H D Calcium Total Bilirubin Alkaline Phosphatase Albumin Urine Blood 12/23/20 12/23/20 12/23/20 05:35 07:12 10:46 WBC RBC 4.03 L Hgb 11.3 L Hct 36.6 L MCHC 30.9 L RDW Plt Count 123 L Immature Gran % (Auto) Neut % (Auto) Lymph % (Auto) Abs Immat Gran (auto) Absolute Neuts (auto) PT INR PTT (Heparin Protocol) Sodium Chloride Carbon Dioxide BUN Creatinine POC Glucose 133 H 122 H Random Glucose Fasting Glucose Calcium Total Bilirubin Alkaline Phosphatase Albumin Urine Blood 12/23/20 12/23/20 12/24/20 16:25 19:53 00:15 WBC RBC Hgb Hct MCHC RDW Plt Count Immature Gran % (Auto) Neut % (Auto) Lymph % (Auto) Abs Immat Gran (auto) Absolute Neuts (auto) PT INR PTT (Heparin Protocol) Sodium Chloride Carbon Dioxide BUN 22 H Creatinine POC Glucose 155 H 121 H Random Glucose Fasting Glucose 121 H Calcium Total Bilirubin Alkaline Phosphatase Albumin Urine Blood 12/24/20 12/24/20 12/24/20 05:30 07:08 11:29 WBC RBC 3.88 L Hgb 10.8 L Hct 35.2 L MCHC 30.7 L RDW Plt Count 122 L Immature Gran % (Auto) 1.3 H Neut % (Auto) Lymph % (Auto) 18.4 L Abs Immat Gran (auto) 0.11 H Absolute Neuts (auto) PT INR PTT (Heparin Protocol) Sodium Chloride Carbon Dioxide BUN Creatinine POC Glucose 190 H 176 H Random Glucose Fasting Glucose Calcium Total Bilirubin Alkaline Phosphatase Albumin Urine Blood 12/25/20 12/25/20 12/25/20 05:22 05:22 07:23 WBC RBC 3.61 L Hgb 10.1 L Hct 32.3 L MCHC RDW Plt Count 115 L Immature Gran % (Auto) 1.7 H Neut % (Auto) Lymph % (Auto) Abs Immat Gran (auto) 0.12 H Absolute Neuts (auto) PT INR PTT (Heparin Protocol) Sodium Chloride Carbon Dioxide BUN 17 H Creatinine 0.45 L POC Glucose 183 H Random Glucose Fasting Glucose 122 H Calcium 8.0 L D Total Bilirubin Alkaline Phosphatase Albumin Urine Blood 12/25/20 12/25/20 12/25/20 11:27 16:15 20:07 WBC RBC Hgb Hct MCHC RDW Plt Count Immature Gran % (Auto) Neut % (Auto) Lymph % (Auto) Abs Immat Gran (auto) Absolute Neuts (auto) PT INR PTT (Heparin Protocol) Sodium Chloride Carbon Dioxide BUN Creatinine POC Glucose 140 H 139 H 143 H Random Glucose Fasting Glucose Calcium Total Bilirubin Alkaline Phosphatase Albumin Urine Blood 12/26/20 12/26/20 12/26/20 06:11 06:11 07:25 WBC RBC 3.62 L Hgb 10.3 L Hct 32.2 L MCHC RDW Plt Count 141 L Immature Gran % (Auto) 1.9 H Neut % (Auto) Lymph % (Auto) Abs Immat Gran (auto) 0.11 H Absolute Neuts (auto) PT INR PTT (Heparin Protocol) Sodium Chloride Carbon Dioxide 21 L BUN Creatinine 0.47 L POC Glucose 154 H Random Glucose Fasting Glucose 157 H Calcium 7.7 L Total Bilirubin Alkaline Phosphatase Albumin Urine Blood 12/26/20 12/27/20 12/27/20 16:07 06:12 06:12 WBC RBC 3.73 L Hgb 10.4 L Hct 33.2 L MCHC RDW Plt Count Immature Gran % (Auto) 2.1 H Neut % (Auto) Lymph % (Auto) Abs Immat Gran (auto) 0.12 H Absolute Neuts (auto) PT INR PTT (Heparin Protocol) Sodium Chloride Carbon Dioxide BUN Creatinine 0.47 L POC Glucose 139 H Random Glucose Fasting Glucose 125 H Calcium 8.1 L Total Bilirubin Alkaline Phosphatase Albumin Urine Blood 12/27/20 12/27/20 12/27/20 07:40 11:15 16:07 WBC RBC Hgb Hct MCHC RDW Plt Count Immature Gran % (Auto) Neut % (Auto) Lymph % (Auto) Abs Immat Gran (auto) Absolute Neuts (auto) PT INR PTT (Heparin Protocol) Sodium Chloride Carbon Dioxide BUN Creatinine POC Glucose 123 H 193 H 126 H Random Glucose Fasting Glucose Calcium Total Bilirubin Alkaline Phosphatase Albumin Urine Blood 12/27/20 12/27/20 12/28/20 20:20 20:34 07:56 WBC RBC Hgb Hct MCHC RDW Plt Count Immature Gran % (Auto) Neut % (Auto) Lymph % (Auto) Abs Immat Gran (auto) Absolute Neuts (auto) PT INR PTT (Heparin Protocol) Sodium Chloride Carbon Dioxide BUN Creatinine POC Glucose 151 H 137 H 119 H Random Glucose Fasting Glucose Calcium Total Bilirubin Alkaline Phosphatase Albumin Urine Blood 12/28/20 12/28/20 12/28/20 11:16 16:05 19:59 WBC RBC Hgb Hct MCHC RDW Plt Count Immature Gran % (Auto) Neut % (Auto) Lymph % (Auto) Abs Immat Gran (auto) Absolute Neuts (auto) PT INR PTT (Heparin Protocol) Sodium Chloride Carbon Dioxide BUN Creatinine POC Glucose 158 H 179 H 143 H Random Glucose Fasting Glucose Calcium Total Bilirubin Alkaline Phosphatase Albumin Urine Blood 12/28/20 12/29/20 12/29/20 21:24 04:37 04:38 WBC RBC 3.79 L Hgb 10.6 L Hct 33.5 L MCHC RDW 16.1 H Plt Count Immature Gran % (Auto) Neut % (Auto) Lymph % (Auto) Abs Immat Gran (auto) Absolute Neuts (auto) PT 14.6 H 15.2 H INR 1.2 H 1.3 H PTT (Heparin Protocol) 33.4 L 81.4 H D Sodium Chloride Carbon Dioxide BUN Creatinine POC Glucose Random Glucose Fasting Glucose Calcium Total Bilirubin Alkaline Phosphatase Albumin Urine Blood 12/29/20 12/29/20 12/29/20 04:38 10:13 11:17 WBC RBC Hgb Hct MCHC RDW Plt Count Immature Gran % (Auto) Neut % (Auto) Lymph % (Auto) Abs Immat Gran (auto) Absolute Neuts (auto) PT INR PTT (Heparin Protocol) 86.8 H Sodium Chloride Carbon Dioxide BUN 17 H Creatinine 0.45 L POC Glucose 147 H Random Glucose Fasting Glucose 117 H Calcium 8.0 L Total Bilirubin Alkaline Phosphatase Albumin Urine Blood 12/29/20 11:17 WBC RBC Hgb Hct MCHC RDW Plt Count Immature Gran % (Auto) Neut % (Auto) Lymph % (Auto) Abs Immat Gran (auto) Absolute Neuts (auto) PT INR PTT (Heparin Protocol) Sodium 134 L Chloride Carbon Dioxide BUN 20 H Creatinine POC Glucose Random Glucose 191 H Fasting Glucose Calcium 8.2 L Total Bilirubin Alkaline Phosphatase Albumin Urine Blood Microbiology: Microbiology 12/21/20 12:22 Blood - Venous Blood Culture - Final No growth after 5 days. 12/21/20 13:09 Blood - Venous Blood Culture - Final No growth after 5 days. Assessment and Plan (1) Pulmonary emboli: Status: Acute Impression: Bilateral prominent lower extremity deep venous thrombosis with bilateral pulmonary emboli in a patient with underlying duodenal also and recent hematemesis. Recommendations: Agree with placement of IVC filter. Consider discussion with gastroenterology service feasibility of ongoing anticoagulation on the background of recent hematemesis. Now with now laboratory evidence of profound right heart strain. If his hemodynamic or oxygenation start to deteriorate, consider transfer for catheter directed therapy. (2) DVT (deep venous thrombosis): Status: Acute
[2020-12-29 16:00] LABS: Glucose, Whole Blood 117 mg/dL (60-115)
--- NOTE | 2020-12-29 18:21 | PC.NURSE ---
Patient on Heparin drip, paused for about 5 hours for IVC filter placement to right groin, restarted upon return to unit per hospitalist. Next PTT HD scheduled for midnight. Patient to lie flat until 10 pm.
[2020-12-29 20:05] LABS: Glucose, Whole Blood 107 mg/dL (60-115)
[2020-12-30 00:43] LABS: PTT Heparin Drip 46.3 SEC (53-77.9)
[2020-12-30] MEDS: Heparin Sodium,Porcine 5,000 UNIT/ML VIAL 3000 UNIT IVPUSH (01:19)
[2020-12-30 03:07] VITALS: BP 120/78; PULSE 85; RESP 18; TEMP 36.2; O2SAT 98
[2020-12-30] MEDS: Pantoprazole Sodium 40 MG/10 ML VIAL IVPUSH ×2 (06:03→17:07)
[2020-12-30 07:09] LABS: Glucose, Whole Blood 110 mg/dL (60-115)
[2020-12-30 07:40] VITALS: BP 119/73; PULSE 76; RESP 20; TEMP 36.1; O2SAT 99
[2020-12-30] MEDS: Insulin Glargine,Hum.rec.anlog 100 UNIT/ML 10 ML VIAL 12 UNIT SUBCUT (07:47)
[2020-12-30] MEDS: Sucralfate Oral Suspension 1 GM/10 ML ORAL.SUSP PO ×4 (07:47→21:34)
[2020-12-30] MEDS: Heparin Sodium,Porcine/1/2NS 25,000 UNIT/250 ML IV.SOLN 9.08 UNIT IVCONT (07:47)
[2020-12-30] MEDS: 0.9 % Sodium Chloride Flush 3 ML SYRINGE IVFLUSH (07:47)
[2020-12-30] MEDS: Docusate Sodium 100 MG CAPSULE PO (07:48)
[2020-12-30] MEDS: Finasteride 5 MG TABLET PO (07:48)
[2020-12-30 08:07] LABS: MANUAL DIFF FLAG NO
[2020-12-30 08:09] LABS: Basophils Percent Auto 0.1 % (0-2); Eosinophils Absolute Auto 0.2 X10*3/uL (0.0-0.4); Eosinophils Percent Auto 2.3 % (0-4); Hematocrit 32.6 % (42-52); Hemoglobin 10.4 g/dl (14.0-18.0); Imm Gran Abs Auto 0.05 X10*3/uL (0.00-0.03); Imm Gran Pct Auto 0.7 % (0.0-0.4); Lymphocytes Absolute Auto 2.2 X10*3/uL (1.2-4.9); Lymphocytes Percent Auto 30.6 % (20-40); Mean Corpuscular HGB Conc 31.9 g/dl (31.0-36.0); Mean Corpuscular Hemoglobin 28.4 pg (27.0-33.0); Mean Corpuscular Volume 89.1 fL (80-98); Mean Platelet Volume 9.9 fL (9.4-12.4); Monocytes Absolute Auto 0.5 X10*3/uL (0.1-1.2); Monocytes Percent Auto 7.4 % (2-11); Neutrophils Absolute Auto 4.1 X10*3/uL (2.0-8.3); Neutrophils Percent Auto 58.9 % (45-73); Platelet Count 218 X10*3/uL (160-400); Red Blood Count 3.66 X10*6/uL (4.60-5.80); Red Cell Distribution Width 15.9 % (11.0-16.0)
[2020-12-30 08:25] LABS: PTT Heparin Drip 86.4 SEC (53-77.9)
[2020-12-30 08:38] LABS: Anion Gap 12 (12-20); Blood Urea Nitrogen 16 mg/dL (9-16); Calcium 8.3 mg/dL (8.4-10.2); Carbon Dioxide 23 mmol/L (22-29); Chloride 104 mmol/L (96-108); Creatinine Clr Calc Pharmacy 143.2; Estimated Glomerular Filt Rate > 60; Glucose Fasting 105 mg/dL (60-99); Sodium 135 mmol/L (135-145)
[2020-12-30] MEDS: Acetaminophen 325 MG TABLET 650 MG PO (10:52)
[2020-12-30 11:05] LABS: Glucose, Whole Blood 180 mg/dL (60-115)
[2020-12-30] MEDS: Insulin Lispro 100 UNIT/ML 3 ML VIAL SUBCUT (11:29)
[2020-12-30 11:39] VITALS: BP 108/72; PULSE 81; RESP 19; TEMP 36.7; O2SAT 98
--- NOTE | 2020-12-30 12:06 | MHC.CM.PN ---
Patient continues on IV heparin gtt for DVT and PE. Patient also had a IVC filter placed. Discharge plan is to return to [facility], patient will need BLS transport. CM spoke with patient re: participating with PT. Patient verbally agrees to the plan. CM will continue to follow patient for discharge needs.
--- NOTE | 2020-12-30 12:14 | P.PNCA_ITS ---
Subjective Subjective Date of Service: 12/30/20 Interval history: Status post IVC filter. No more SVT. He is saying he still is not feeling well and feels tired. Physical Exam Vital Signs: Last Vital Signs Temp 98.1 F 12/30/20 11:39 Pulse 81 12/30/20 11:39 Resp 19 12/30/20 11:39 BP 108/72 12/30/20 11:39 Pulse Ox 98 12/30/20 11:39 Body Mass Index 24.6 GENERAL APPEARANCE: Looks fatigued. HEENT: unremarkable. HEAD: normocephalic, atraumatic. NECK/THYROID: no carotid bruit, no jugular venous distention. SKIN: no suspicious lesions, warm and dry. HEART: no murmurs, regular rate and rhythm, S1, S2 normal. No parasternal heave LUNGS: clear to auscultation bilaterally. ABDOMEN: normal, bowel sounds present, soft, nontender, nondistended. EXTREMITIES: Left lower extremity edema. PERIPHERAL PULSES: equal. NEUROLOGIC: nonfocal, alert and oriented. PSYCH: Depressed. Results Labs and Meds Result diagrams: 12/30/20 07:32 12/30/20 07:32 Lab results: Laboratory Results - last 24 hr 12/29/20 12/29/20 12/29/20 12:40 15:56 19:48 WBC RBC Hgb Hct MCV MCH MCHC RDW Plt Count MPV Immature Gran % (Auto) Neut % (Auto) Lymph % (Auto) [place] % (Auto) Eos % (Auto) Baso % (Auto) Lymph # (Auto) [place] # (Auto) Eos # (Auto) Baso # (Auto) Abs Immat Gran (auto) Absolute Neuts (auto) Absolute Nucleated RBC Nucleated RBC % (auto) PTT (Heparin Protocol) Sodium Potassium Chloride Carbon Dioxide Anion Gap BUN Creatinine Estim Creat Clear Calc Estimated GFR POC Glucose 117 H 107 Fasting Glucose Calcium B-Natriuretic Peptide 23 12/30/20 12/30/20 12/30/20 00:14 07:00 07:32 WBC 7.0 RBC 3.66 L Hgb 10.4 L Hct 32.6 L MCV 89.1 MCH 28.4 MCHC 31.9 RDW 15.9 Plt Count 218 MPV 9.9 Immature Gran % (Auto) 0.7 H Neut % (Auto) 58.9 Lymph % (Auto) 30.6 [place] % (Auto) 7.4 Eos % (Auto) 2.3 Baso % (Auto) 0.1 Lymph # (Auto) 2.2 [place] # (Auto) 0.5 Eos # (Auto) 0.2 Baso # (Auto) 0.0 Abs Immat Gran (auto) 0.05 H Absolute Neuts (auto) 4.1 Absolute Nucleated RBC 0.000 Nucleated RBC % (auto) 0.0 PTT (Heparin Protocol) 46.3 L D Sodium Potassium Chloride Carbon Dioxide Anion Gap BUN Creatinine Estim Creat Clear Calc Estimated GFR POC Glucose 110 Fasting Glucose Calcium B-Natriuretic Peptide 12/30/20 12/30/20 12/30/20 07:32 07:32 10:58 WBC RBC Hgb Hct MCV MCH MCHC RDW Plt Count MPV Immature Gran % (Auto) Neut % (Auto) Lymph % (Auto) [place] % (Auto) Eos % (Auto) Baso % (Auto) Lymph # (Auto) [place] # (Auto) Eos # (Auto) Baso # (Auto) Abs Immat Gran (auto) Absolute Neuts (auto) Absolute Nucleated RBC Nucleated RBC % (auto) PTT (Heparin Protocol) 86.4 H D Sodium 135 Potassium 4.0 Chloride 104 Carbon Dioxide 23 Anion Gap 12 BUN 16 Creatinine 0.48 L Estim Creat Clear Calc 143.2 Estimated GFR > 60 POC Glucose 180 H Fasting Glucose 105 H Calcium 8.3 L B-Natriuretic Peptide Progress Note: A&P Assessment and plan (1) Pulmonary emboli: Status: Acute (2) DVT (deep venous thrombosis): Status: Acute (3) SVT (supraventricular tachycardia): Status: Acute Assessment and Plan: Pleasant 70-year-old gentleman with recent COVID-19 infection and extensive DVT and PE. He had supraventricular tachycardia which was short lived and has not r ecurred. He has been started on heparin. He also had placement of IVC filter. His CT scan showed concern for RV strain. We will check an echocardiogram to confirm that. Duration of anticoagulation is currently unclear. It should be at least 3-6 months. With his recent GI bleed history we have to monitor him closely for bleeding. Thank you for allowing me to participate in the care of your patient. Please feel free to contact me if you have any questions. Fall Risk Details Current Medications: Current Medications Generic Name Dose Route Start Last Admin Trade Name Freq PRN Reason Stop Dose Admin Acetaminophen 650 mg 12/21/20 18:19 12/30/20 10:52 Acetaminophen 325 Mg Tablet PO 650 mg Q6H PRN Administration Pain, Mild (Pain Scale 1-3) Acetaminophen 650 mg 12/21/20 18:19 Acetaminophen 325 Mg Tablet PO Q6H PRN Pain, Mild (Pain Scale 1-3) Bisacodyl 5 mg 12/30/20 12:00 Bisacodyl 5 Mg Tablet.Dr PO DAILY EKATERINA Diphenhydramine HCl 25 mg 12/28/20 09:40 12/28/20 12:21 Diphenhydramine Hcl 50 Mg/Ml Vial IVPUSH 25 mg Q6H PRN Administration pruritis Docusate Sodium 100 mg 12/21/20 21:00 12/30/20 07:48 Docusate Sodium 100 Mg Capsule PO 100 mg BID EKATERINA Administration Finasteride 5 mg 12/22/20 09:00 12/30/20 07:48 Finasteride 5 Mg Tablet PO 5 mg DAILY EKATERINA Administration Heparin Sodium (Porcine) 3,000 unit 12/28/20 20:55 12/30/20 01:19 Heparin Sodium,Porcine 5,000 Unit/Ml Vial 40 unit/kg (3000 unit) 3,000 unit IVPUSH Administration BOLUS PRN 40 unit/kg - Heparin Protocol Heparin Sodium (Porcine) 6,100 unit 12/28/20 20:55 Heparin Sodium,Porcine 5,000 Unit/Ml Vial 80 unit/kg (6100 unit) IVPUSH BOLUS PRN 80 unit/kg - Heparin Protocol Heparin Sodium/Sodium Chloride 25,000 unit in 250 mls @ 0 mls/hr 12/28/20 21:00 12/30/20 08:42 IVCONT 10 units/kg/hr .Q0M [facility] 7.57 mls/hr Titration Protocol Per Protocol Insulin Glargine 12 unit 12/22/20 09:00 12/30/20 07:47 Insulin Glargine,Hum.Rec.Anlog 100 Unit/Ml 10 Ml Vial SUBCUT 12 unit DAILY EKATERINA Administration Insulin Human Lispro 0 unit 12/21/20 21:00 12/30/20 11:29 Insulin Lispro 100 Unit/Ml 3 Ml Vial SUBCUT 2 unit QIDACHS EKATERINA Administration Protocol Lidocaine/Diphenhydr/Alum/Mg/Simeth 10 ml 12/23/20 15:47 12/26/20 22:13 Mag&Al/Sim/Diphenhyd/Lidocaine 10 Ml Oral.Susp PO 10 ml Q4H PRN Administration odynophagia Protocol Melatonin 6 mg 12/25/20 22:01 12/26/20 22:10 Melatonin 3 Mg Tablet PO 6 mg BEDTIME PRN Administration Insomnia Ondansetron HCl 4 mg 12/21/20 18:19 12/22/20 16:06 Ondansetron Hcl 4 Mg/2 Ml Vial IVPUSH 4 mg Q8H PRN Administration Nausea and Vomiting Ondansetron HCl 4 mg 12/23/20 13:44 Ondansetron Hcl 4 Mg/2 Ml Vial IVPUSH ONCE PRN Nausea and Vomiting Pantoprazole Sodium 40 mg 12/25/20 06:30 12/30/20 06:03 Pantoprazole Sodium 40 Mg/10 Ml Vial IVPUSH 40 mg BID@0630,1630 [facility] Administration Pharmacy Consult 1 each 12/21/20 11:39 Consult Rx Perform Med Rec MISCELLANE ONCE PRN Consult order Polyethylene Glycol 17 gm 12/30/20 11:15 Polyethylene Glycol 3350 17 Gm Powd.Pack PO DAILY PRN Constipation Sodium Chloride 3 ml 12/22/20 00:00 12/30/20 07:47 0.9 % Sodium Chloride Flush 3 Ml Syringe IVFLUSH 3 ml QSHIFT [facility] Administration Sucralfate 1 gm 12/24/20 16:30 12/30/20 11:29 Sucralfate Oral Suspension 1 Gm/10 Ml Oral.Susp PO 1 gm QIDACHS [facility] Administration Time Spent With Patient Time: Total time spent is greater than 50% in coordination of care (as documented) at patient's floor/unit and/or counseling patient: Time with patient: 15 - 24 minutes
[2020-12-30] MEDS: bisacodyL 5 MG TABLET.DR PO (12:43)
[2020-12-30 13:29] LABS: PTT Heparin Drip 63.5 SEC (53-77.9)
[2020-12-30 15:44] VITALS: BP 103/65; PULSE 80; RESP 16; TEMP 36.2; O2SAT 98
--- NOTE | 2020-12-30 16:10 | P.PNIM_ITS ---
Subjective Subjective Date of Service: 12/30/20 Interval History: the patient was seen and evaluated this morning Laying in bed, feels tired with no reported bleeding or vomiting overnight Denies any fever, chills or shortness of breath No reported other overnight events. Review of Systems No fever, chills but reported increase weakness No chest pain, palpitation No shortness of breath or coughing No abdominal pain or hematemesis No weakness, numbness reported No any rash or wounds Physical Exam Vital Signs: Vital Signs: Last Vital Signs Temp 97.2 F 12/30/20 15:44 Pulse 80 12/30/20 15:44 Resp 16 12/30/20 15:44 BP 103/65 12/30/20 15:44 Pulse Ox 98 12/30/20 15:44 Body Mass Index 24.6 Const: Other: Constitutional : Alert, oriented, feels weak and tired, general deconditioning Neck : Normal inspection, Supple Cardiovascular : RRR, S1 S2, no lower extremity edema Respiratory : Decrease bilateral air entry, basis fine bilateral crackles, no wheezes or rhonchi Gastrointestinal: soft, lax, Normal bowel sounds, Non tender Skin : Warm/Dry, No rash noted Neurological : Alert & oriented x3, No focal deficit Objective Data Current Medications Generic Name Dose Route Start Last Admin Trade Name Freq PRN Reason Stop Dose Admin Acetaminophen 650 mg 12/21/20 18:19 12/30/20 10:52 Acetaminophen 325 Mg Tablet PO 650 mg Q6H PRN Administration Pain, Mild (Pain Scale 1-3) Acetaminophen 650 mg 12/21/20 18:19 Acetaminophen 325 Mg Tablet PO Q6H PRN Pain, Mild (Pain Scale 1-3) Bisacodyl 5 mg 12/30/20 12:00 12/30/20 12:43 Bisacodyl 5 Mg Tablet. PO 5 mg DAILY EKATERINA Administration Diphenhydramine HCl 25 mg 12/28/20 09:40 12/28/20 12:21 Diphenhydramine Hcl 50 Mg/Ml Vial IVPUSH 25 mg Q6H PRN Administration pruritis Docusate Sodium 100 mg 12/21/20 21:00 12/30/20 07:48 Docusate Sodium 100 Mg Capsule PO 100 mg BID EKATERINA Administration Finasteride 5 mg 12/22/20 09:00 12/30/20 07:48 Finasteride 5 Mg Tablet PO 5 mg DAILY EKATERINA Administration Heparin Sodium (Porcine) 3,000 unit 12/28/20 20:55 12/30/20 01:19 Heparin Sodium,Porcine 5,000 Unit/Ml Vial 40 unit/kg (3000 unit) 3,000 unit IVPUSH Administration BOLUS PRN 40 unit/kg - Heparin Protocol Heparin Sodium (Porcine) 6,100 unit 12/28/20 20:55 Heparin Sodium,Porcine 5,000 Unit/Ml Vial 80 unit/kg (6100 unit) IVPUSH BOLUS PRN 80 unit/kg - Heparin Protocol Heparin Sodium/Sodium Chloride 25,000 unit in 250 mls @ 0 mls/hr 12/28/20 21:00 12/30/20 14:49 IVCONT 10 units/kg/hr .Q0M [facility] 7.57 mls/hr Titration Protocol Per Protocol Insulin Glargine 12 unit 12/22/20 09:00 12/30/20 07:47 Insulin Glargine,Hum.Rec.Anlog 100 Unit/Ml 10 Ml Vial SUBCUT 12 unit DAILY EKATERINA Administration Insulin Human Lispro 0 unit 12/21/20 21:00 12/30/20 11:29 Insulin Lispro 100 Unit/Ml 3 Ml Vial SUBCUT 2 unit QIDACHS [facility] Administration Protocol Lidocaine/Diphenhydr/Alum/Mg/Simeth 10 ml 12/23/20 15:47 12/26/20 22:13 Mag&Al/Sim/Diphenhyd/Lidocaine 10 Ml Oral.Susp PO 10 ml Q4H PRN Administration odynophagia Protocol Melatonin 6 mg 12/25/20 22:01 12/26/20 22:10 Melatonin 3 Mg Tablet PO 6 mg BEDTIME PRN Administration Insomnia Ondansetron HCl 4 mg 12/21/20 18:19 12/22/20 16:06 Ondansetron Hcl 4 Mg/2 Ml Vial IVPUSH 4 mg Q8H PRN Administration Nausea and Vomiting Ondansetron HCl 4 mg 12/23/20 13:44 Ondansetron Hcl 4 Mg/2 Ml Vial IVPUSH ONCE PRN Nausea and Vomiting Pantoprazole Sodium 40 mg 12/25/20 06:30 12/30/20 06:03 Pantoprazole Sodium 40 Mg/10 Ml Vial IVPUSH 40 mg BID@0630,1630 [facility] Administration Pharmacy Consult 1 each 12/21/20 11:39 Consult Rx Perform Med Rec MISCELLANE ONCE PRN Consult order Polyethylene Glycol 17 gm 12/30/20 11:15 Polyethylene Glycol 3350 17 Gm Powd.Pack PO DAILY PRN Constipation Sodium Chloride 3 ml 12/22/20 00:00 12/30/20 07:47 0.9 % Sodium Chloride Flush 3 Ml Syringe IVFLUSH 3 ml QSHIFT EKATERINA Administration Sucralfate 1 gm 12/24/20 16:30 12/30/20 11:29 Sucralfate Oral Suspension 1 Gm/10 Ml Oral.Susp PO 1 gm QIDACHS EKATERINA Administration Labs CBC & Chem 7: 12/30/20 07:32 12/30/20 07:32 Microbiology Microbiology Results: Microbiology 12/21/20 12:22 Blood - Venous Blood Culture - Final No growth after 5 days. 12/21/20 13:09 Blood - Venous Blood Culture - Final No growth after 5 days. Assessment and Plan (1) Leukocytosis: Status: Acute (2) Abdominal pain: Status: Acute (3) Hematemesis: Status: Acute (4) Physical deconditioning: Status: Acute Assessment and Plan: A 70 years old male with PMH DM, BPH, GERD who presents to the hospital with 3 days increased lethargy associated with abdominal pain and multiple episodes of hematemesis of dark color material, now diagnoised with dvt and PE. acute blood loss anemia Hematemesis EGD 12/23/20 showed severe esophagitis and duodenal bulb ulcer Follow-up pathology - no hyplori, fungal and viral path pending Continue IV Protonix, bid dosing, (patient occassionally refuses oral meds, so will keep iv for now) Hemoglobin now stable No further hematemesis continue ppi, carafate, magic mouthwash started to finally report some improvement, but does not want solid foods DVT/PE provoked - recent covid, hospitalization with inability to receive pharmaceutical dvt prophylaxis due to gi bledd started tentatively on iv heparin, monitoring closely high risk for GI bleed due to above and will not tolerate further clot burden as already showing signs of RV strain despite normotension and no hypoxia, therefore, IVC filter placed pulmnonary eval appreciated SVT do to pe, continue lopressor pruritis benadryl as needed reported SI patient is not suicidal, he used the phrase I am so itchy I want to kill myself , clearly a figure of speech (confirmed by patient himself) and does not require sitter or care team evaluation Diabetes type 2 Lantus of 20 SSI DVT PPX SCDs
[2020-12-30 16:11] LABS: Glucose, Whole Blood 99 mg/dL (60-115)
[2020-12-30] MEDS: polyethylene glycoL 3350 17 GM POWD.PACK PO (17:07)
--- NOTE | 2020-12-30 18:00 | CA_ITS ---
Transthoracic Echocardiogram Patient (Last, First, Middle): Mariposa Davis, Gender: Male Date of : 1950 Age: 70 Procedure Date: 12/30/2020 Procedure Type: Transthoracic Echocardiogram Height: 175.26 cm Weight: 75.3 kg BSA: 1.91 m2 Heart Rate: bpm BP: 120 / 78 mmHg Conclusions: - Limited echo. - Normal left ventricular size and systolic function. - Normal right ventricular cavity size and systolic function. - There is trace tricuspid valve regurgitation. Normal right atrial pressure. There is no evidence of pulmonary hypertension. - The inferior vena cava is normal in size and collapses greater than 50% with inspiration. Findings Left Ventricle Normal left ventricular size and systolic function. There is mildly increased left ventricular wall thickness. The visually estimated ejection fraction is between 60-65%. Diastolic function is indeterminate on the basis of available data. Right Ventricle Normal right ventricular cavity size and systolic function. Tricuspid Valve Normal tricuspid valve structure. There is trace tricuspid valve regurgitation. Normal right atrial pressure. There is no evidence of pulmonary hypertension. Venous The inferior vena cava is normal in size and collapses greater than 50% with inspiration. Pericardium/Pleural There is no evidence of pericardial effusion. Prior Study Comparison No significant change compared to prior study. Measurements 2D Linear Measurements IVSd: 1.25 0.6-0.9/0.6-1.0 cm LVIDd: 3.67 3.9-5.3/4.2-5.9 cm LVIDd Index: 1.92 2.4-3.2/2.2-3.1 cm/m2 LVIDs: 2.59 2.0-3.6 cm LVPWd: 1.23 0.7-1.1 cm LV Mass: 190.50 67-162/88-224 g LV Mass Index: 99.74 43-95/49-115 g/m2 Tricuspid Valve TR Pk Baron: 2.00 TR Pk Grad: 16.00 RVSP: 20.00 Updated in Other Vendor System with Status of Final Lloyd Gonzalez MD electronically signed on 12/30/2020 2:32:01 PM with status of Final
--- NOTE | 2020-12-30 18:13 | PC.NURSE ---
Patient not agreeable to standing due to feeling tired. Patient educated re importance of getting out of bed to prevent further DVTs. Patient also given educational handouts regarding IVC filter placement, PE's, and DVT's. Patient has not been able to have a bowel movement, Colace, Dulcolax, and Miralax administered per order.
[2020-12-30 19:58] VITALS: BP 109/60; PULSE 71; RESP 18; TEMP 36.7; O2SAT 98
[2020-12-30 20:23] LABS: Glucose, Whole Blood 95 mg/dL (60-115)
[2020-12-30 20:29] LABS: PTT Heparin Drip 55.8 SEC (53-77.9)
[2020-12-30 23:52] VITALS: BP 107/73; PULSE 83; RESP 18; TEMP 36.2; O2SAT 99
[2020-12-31 04:00] VITALS: BP 136/78; PULSE 85; RESP 18; TEMP 36.2; O2SAT 99
[2020-12-31 06:07] LABS: Hematocrit 31.9 % (42-52); Mean Corpuscular HGB Conc 31.3 g/dl (31.0-36.0); Mean Corpuscular Hemoglobin 27.6 pg (27.0-33.0); Mean Corpuscular Volume 88.1 fL (80-98); Mean Platelet Volume 9.4 fL (9.4-12.4); Platelet Count 255 X10*3/uL (160-400); Red Blood Count 3.62 X10*6/uL (4.60-5.80); White Blood Count 7.7 X10*3/uL (4.8-10.8)
[2020-12-31 06:14] LABS: PTT Heparin Drip 64.8 SEC (53-77.9)
[2020-12-31] MEDS: Pantoprazole Sodium 40 MG/10 ML VIAL IVPUSH ×2 (06:15→16:52)
[2020-12-31 06:34] LABS: Anion Gap 13 (12-20); Blood Urea Nitrogen 13 mg/dL (9-16); Calcium 8.3 mg/dL (8.4-10.2); Carbon Dioxide 22 mmol/L (22-29); Chloride 106 mmol/L (96-108); Creatinine Clr Calc Pharmacy 152.7; Estimated Glomerular Filt Rate > 60; Glucose Random 90 mg/dL (60-115); Potassium 3.9 mmol/L (3.3-5.1); Sodium 137 mmol/L (135-145)
[2020-12-31 07:11] LABS: Glucose, Whole Blood 87 mg/dL (60-115)
[2020-12-31 07:24] VITALS: BP 111/71; PULSE 87; RESP 19; TEMP 36.8; O2SAT 98
[2020-12-31] MEDS: bisacodyL 5 MG TABLET.DR PO (08:48)
[2020-12-31] MEDS: Finasteride 5 MG TABLET PO (08:48)
[2020-12-31] MEDS: 0.9 % Sodium Chloride Flush 3 ML SYRINGE IVFLUSH ×3 (08:48→23:32)
[2020-12-31] MEDS: Sucralfate Oral Suspension 1 GM/10 ML ORAL.SUSP PO ×4 (08:48→20:39)
[2020-12-31] MEDS: Apixaban 5 MG TABLET PO ×2 (08:48→20:39)
[2020-12-31] MEDS: Insulin Glargine,Hum.rec.anlog 100 UNIT/ML 10 ML VIAL 12 UNIT SUBCUT (08:49)
[2020-12-31 11:09] LABS: Glucose, Whole Blood 138 mg/dL (60-115)
[2020-12-31 11:23] VITALS: BP 99/62; PULSE 76; RESP 19; TEMP 36.2; O2SAT 98
[2020-12-31 15:07] VITALS: BP 109/66; PULSE 75; RESP 18; TEMP 36.8; O2SAT 98
--- NOTE | 2020-12-31 15:08 | HO.PM.IMPN ---
Subjective Subjective Date of Service: 12/31/20 Interval History: the patient was seen and evaluated this morning Laying in bed, feels tired with no reported bleeding or vomiting overnight Denies any fever, chills or shortness of breath No reported other overnight events. Review of Systems No fever, chills but reported increase weakness No chest pain, palpitation No shortness of breath or coughing No abdominal pain or hematemesis No weakness, numbness reported No any rash or wounds Physical Exam Vital Signs: Vital Signs: Last Vital Signs Temp 97.1 F 12/31/20 11:23 Pulse 76 12/31/20 11:23 Resp 19 12/31/20 11:23 BP 99/62 12/31/20 11:23 Pulse Ox 98 12/31/20 11:23 Body Mass Index 24.6 Const: Other: Constitutional : Alert, oriented, feels weak and tired, general deconditioning Neck : Normal inspection, Supple Cardiovascular : RRR, S1 S2, no lower extremity edema Respiratory : Decrease bilateral air entry, basis fine bilateral crackles, no wheezes or rhonchi Gastrointestinal: soft, lax, Normal bowel sounds, Non tender Skin : Warm/Dry, No rash noted Neurological : Alert & oriented x3, No focal deficit Objective Data Current Medications Generic Name Dose Route Start Last Admin Trade Name Freq PRN Reason Stop Dose Admin Acetaminophen 650 mg 12/21/20 18:19 12/30/20 10:52 Acetaminophen 325 Mg Tablet PO 650 mg Q6H PRN Administration Pain, Mild (Pain Scale 1-3) Acetaminophen 650 mg 12/21/20 18:19 Acetaminophen 325 Mg Tablet PO Q6H PRN Pain, Mild (Pain Scale 1-3) Apixaban 5 mg 12/31/20 09:00 12/31/20 08:48 Apixaban 5 Mg Tablet PO 5 mg BID EKATERINA Administration Bisacodyl 5 mg 12/30/20 12:00 12/31/20 08:48 Bisacodyl 5 Mg Tablet.Dr PO 5 mg DAILY EKATERINA Administration Diphenhydramine HCl 25 mg 12/28/20 09:40 12/28/20 12:21 Diphenhydramine Hcl 50 Mg/Ml Vial IVPUSH 25 mg Q6H PRN Administration pruritis Docusate Sodium 100 mg 12/21/20 21:00 12/31/20 08:49 Docusate Sodium 100 Mg Capsule PO Not Given BID [facility] Finasteride 5 mg 12/22/20 09:00 12/31/20 08:48 Finasteride 5 Mg Tablet PO 5 mg DAILY [facility] Administration Insulin Glargine 12 unit 12/22/20 09:00 12/31/20 08:49 Insulin Glargine,Hum.Rec.Anlog 100 Unit/Ml 10 Ml Vial SUBCUT 12 unit DAILY [facility] Administration Insulin Human Lispro 0 unit 12/21/20 21:00 12/31/20 11:25 Insulin Lispro 100 Unit/Ml 3 Ml Vial SUBCUT Not Given QIDACHS [facility] Protocol Lidocaine/Diphenhydr/Alum/Mg/Simeth 10 ml 12/23/20 15:47 12/26/20 22:13 Mag&Al/Sim/Diphenhyd/Lidocaine 10 Ml Oral.Susp PO 10 ml Q4H PRN Administration odynophagia Protocol Melatonin 6 mg 12/25/20 22:01 12/26/20 22:10 Melatonin 3 Mg Tablet PO 6 mg BEDTIME PRN Administration Insomnia Ondansetron HCl 4 mg 12/21/20 18:19 12/22/20 16:06 Ondansetron Hcl 4 Mg/2 Ml Vial IVPUSH 4 mg Q8H PRN Administration Nausea and Vomiting Ondansetron HCl 4 mg 12/23/20 13:44 Ondansetron Hcl 4 Mg/2 Ml Vial IVPUSH ONCE PRN Nausea and Vomiting Pantoprazole Sodium 40 mg 12/25/20 06:30 12/31/20 06:15 Pantoprazole Sodium 40 Mg/10 Ml Vial IVPUSH 40 mg BID@0630,1630 [facility] Administration Pharmacy Consult 1 each 12/21/20 11:39 Consult Rx Perform Med Rec MISCELLANE ONCE PRN Consult order Polyethylene Glycol 17 gm 12/30/20 11:15 12/30/20 17:07 Polyethylene Glycol 3350 17 Gm Powd.Pack PO 17 gm DAILY PRN Administration Constipation Sodium Chloride 3 ml 12/22/20 00:00 12/31/20 08:48 0.9 % Sodium Chloride Flush 3 Ml Syringe IVFLUSH 3 ml QSHIFT [facility] Administration Sucralfate 1 gm 12/24/20 16:30 12/31/20 12:22 Sucralfate Oral Suspension 1 Gm/10 Ml Oral.Susp PO 1 gm QIDACHS [facility] Administration Labs CBC & Chem 7: 12/31/20 05:54 12/31/20 05:54 Microbiology Microbiology Results: Microbiology 12/21/20 12:22 Blood - Venous Blood Culture - Final No growth after 5 days. 12/21/20 13:09 Blood - Venous Blood Culture - Final No growth after 5 days. Assessment and Plan (1) Leukocytosis: Status: Acute (2) Abdominal pain: Status: Acute (3) Hematemesis: Status: Acute (4) Physical deconditioning: Status: Acute Assessment and Plan: A 70 years old male with PMH DM, BPH, GERD who presents to the hospital with 3 days increased lethargy associated with abdominal pain and multiple episodes of hematemesis of dark color material, now diagnoised with dvt and PE. acute blood loss anemia Hematemesis EGD 12/23/20 showed severe esophagitis and duodenal bulb ulcer Follow-up pathology - no hyplori, fungal and viral path pending Continue IV Protonix, bid dosing, (patient occassionally refuses oral meds, so will keep iv for now) Hemoglobin now stable No further hematemesis continue ppi, carafate, magic mouthwash started to finally report some improvement Advance diet DVT/PE provoked - recent covid, hospitalization with inability to receive pharmaceutical dvt prophylaxis due to gi bledd DC iv heparin Start Eliquis and monitor for bleeding high risk for GI bleed due to above and will not tolerate further clot burden as already showing signs of RV strain despite normotension and no hypoxia, therefore, IVC filter placed pulmnonary eval appreciated SVT do to pe, continue lopressor pruritis benadryl as needed Diabetes type 2 Lantus of 20 SSI Physical deconditioning PT eval, needs STR DVT PPX SCDs
[2020-12-31 16:11] LABS: Glucose, Whole Blood 108 mg/dL (60-115)
[2020-12-31 19:29] VITALS: BP 108/68; PULSE 75; RESP 20; TEMP 36.8; O2SAT 98
[2020-12-31 20:22] LABS: Glucose, Whole Blood 169 mg/dL (60-115)
[2020-12-31] MEDS: Insulin Lispro 100 UNIT/ML 3 ML VIAL SUBCUT (20:39)
[2020-12-31] MEDS: Docusate Sodium 100 MG CAPSULE PO (20:39)
[2020-12-31] MEDS: Acetaminophen 325 MG TABLET 650 MG PO (22:00)
[2021-01-01] VITALS: BP 104/67; PULSE 73; RESP 18; TEMP 36.5; O2SAT 99
[2021-01-01 03:52] VITALS: BP 116/70; PULSE 71; RESP 18; TEMP 36; O2SAT 100
[2021-01-01] MEDS: Pantoprazole Sodium 40 MG/10 ML VIAL IVPUSH (06:05)
[2021-01-01 06:53] LABS: Anion Gap 15 (12-20); Blood Urea Nitrogen 10 mg/dL (9-16); Calcium 8.2 mg/dL (8.4-10.2); Carbon Dioxide 19 mmol/L (22-29); Chloride 108 mmol/L (96-108); Creatinine Clr Calc Pharmacy 149.4; Estimated Glomerular Filt Rate > 60; Glucose Random 87 mg/dL (60-115); Sodium 138 mmol/L (135-145)
[2021-01-01 06:59] LABS: PTT Heparin Drip 39.4 SEC (53-77.9)
[2021-01-01 07:00] LABS: Hematocrit 33.6 % (42-52); Hemoglobin 10.3 g/dl (14.0-18.0); Mean Corpuscular HGB Conc 30.7 g/dl (31.0-36.0); Mean Corpuscular Hemoglobin 27.5 pg (27.0-33.0); Mean Corpuscular Volume 89.8 fL (80-98); Mean Platelet Volume 9.5 fL (9.4-12.4); Platelet Count 281 X10*3/uL (160-400); Red Blood Count 3.74 X10*6/uL (4.60-5.80); Red Cell Distribution Width 16.2 % (11.0-16.0); White Blood Count 7.2 X10*3/uL (4.8-10.8)
[2021-01-01 07:56] LABS: Glucose, Whole Blood 115 mg/dL (60-115)
[2021-01-01 08:00] VITALS: BP 110/81; PULSE 85; RESP 18; TEMP 36.6; O2SAT 97
[2021-01-01] MEDS: Finasteride 5 MG TABLET PO (08:18)
[2021-01-01] MEDS: Sucralfate Oral Suspension 1 GM/10 ML ORAL.SUSP PO ×2 (08:18→11:45)
[2021-01-01] MEDS: bisacodyL 5 MG TABLET.DR PO (08:18)
[2021-01-01] MEDS: Insulin Glargine,Hum.rec.anlog 100 UNIT/ML 10 ML VIAL 12 UNIT SUBCUT (08:18)
[2021-01-01] MEDS: Apixaban 5 MG TABLET PO (08:18)
[2021-01-01] MEDS: Docusate Sodium 100 MG CAPSULE PO (08:18)
[2021-01-01] MEDS: 0.9 % Sodium Chloride Flush 3 ML SYRINGE IVFLUSH (08:25)
[2021-01-01 11:13] VITALS: BP 101/70; PULSE 94; RESP 18; TEMP 36.4; O2SAT 100
[2021-01-01 11:40] LABS: Glucose, Whole Blood 172 mg/dL (60-115)
[2021-01-01] MEDS: Insulin Lispro 100 UNIT/ML 3 ML VIAL SUBCUT (11:45)
--- NOTE | 2021-01-01 12:15 | PM.DS ---
DS: Providers Provider Date of Service: 01/01/21 Date of admission: 12/21/20 16:52 Primary care physician: Jaxon Fuentes MD Consults: 12/21/20 16:01 Consult to Gastroenterology Stat Consulting Provider: Abdulaziz Flores Reason for consultation: hematemesis Has provider been notified: Yes 12/28/20 02:37 Consult to Psychiatry Stat Consulting Provider: Psych Covering Reason for consultation: SI 12/28/20 09:39 Consult to Cardiology Routine Consulting Provider: Lloyd Gonzalez Reason for consultation: narrow complex tachycardia 12/29/20 08:01 Consult to Pulmonology Routine Consulting Provider: Mitchel Patel Reason for consultation: extensive dvt/pe with right heart strain, recent gi bleed, recent covid DS: Diagnosis Discharge Diagnosis (1) Hematemesis: Status: Acute (2) Physical deconditioning: Status: Acute (3) Pulmonary emboli: Status: Acute (4) DVT (deep venous thrombosis): Status: Acute (5) SVT (supraventricular tachycardia): Status: Acute (6) Duodenal ulcer: Status: Acute (7) Odynophagia: Status: Acute (8) Erosive esophagitis: Status: Acute DS: Medications Discharge Medications Home Medications: Previous Rx's Medication Instructions Recorded blood sugar diagnostic #100 ea 10/19/20 Lantus U-100 Insulin 20 unit SUBCUT DAILY #10 ml 12/16/20 acetaminophen 650 mg PO Q6H PRN #30 tab 12/16/20 finasteride [Proscar] 5 mg PO DAILY #20 tab 12/16/20 insulin lispro [Humalog U-100 See Rx Instructions .ROUTE 12/16/20 Insulin] .COMPLEX #10 ml Mag&Al/Sim/Diphenhyd/Lidocaine 10 ml PO Q4H PRN 30 Days 01/01/21 [Magic Mouthwash] apixaban [Eliquis] 5 mg PO BID #60 tab 01/01/21 bisacodyl 5 mg PO DAILY #30 tab 01/01/21 docusate sodium 100 mg PO BID #60 cap 01/01/21 omeprazole 40 mg PO BID #60 cap 01/01/21 sucralfate 1 g PO QIDACHS 30 Days ml 01/01/21 DS: Summary Hospital Course Hospital Course: Admission note HPI A 70 years old male with PMH DM, BPH, GERD who presents to the hospital with 3 days increased lethargy associated with abdominal pain and multiple episodes of hematemesis of dark color material over the last day. The patient was recently treated in the hospital for COVID-19 infection discharged from the hospital on December 16. Coming back to the hospital with worsening physical condition associated with abdominal pain in multiple episodes of coffee-ground emesis. Reported by EMS to have barbara blood in emesis as well. No episodes witnessed in the emergency. He reports his symptoms were associated with decreased oral intake as he does not feel good in his stomach. In the emergency CT abdomen pelvis was negative for any acute findings, CXR showing improvement in the infiltrate. Blood work within normal except for elevated WBCs with no clear source of infection. Admitted for further evaluation and treatment. Hospital course Patient was admitted to the hospital for evaluation of reported episodes of hematemesis and abdominal pain. Evaluated by airplane mechanic apprentice Dr. Flores who did an upper endoscopy showing erosive gastritis and duodenal ulcer with Local treatment and the patient was started on IV pantoprazole and Carafate with good response over the course of hospital stay as he did not have any more episodes of hematemesis and abdominal pain improved. He was able to tolerate more diet and it was advanced to bland diet before discharge. During the hospital stay he was noticed to have lower extremity swelling and difficulty breathing with an episode of SVT. Ultrasound and CTA were done showing lower extremity DVT an evidence of PE. Started on heparin drip for 48 hours with good tolerance and no reported bleeding or drop in his hemoglobin level. He was then started on Eliquis with stable hemoglobin and no reported bleeding. With plan for at least 3 months of anticoagulation given the fact it is mainly provoked giving his general deconditioning. Evaluated by Physical therapy who recommended short-term rehab for his general deconditioning. Evaluated by Cardiology for SVT who believe that was a result of PE. An echo was done showing normal left-sided function and ejection fraction without sign of strain. Continue omeprazole and Carafate as prescribed To follow-up with Dr. Flores as outpatient for the final result of endoscopy pathology Continue Eliquis for 3 months at least, to follow-up with PCP and GI to decide the length of treatment To repeat blood test next week Time Spent with Patient Time attestation: Total time spent providing and/or coordinating discharge services: Discharge coordination time: Greater than 30 minutes Physical Exam Vital Signs: Vital Signs: Last Vital Signs Temp 97.5 F 01/01/21 11:13 Pulse 94 01/01/21 11:13 Resp 18 01/01/21 11:13 BP 101/70 01/01/21 11:13 Pulse Ox 100 01/01/21 11:13 Body Mass Index 24.6 Const: Other: Constitutional : Alert, oriented, feels weak and tired, general deconditioning Neck : Normal inspection, Supple Cardiovascular : RRR, S1 S2, no lower extremity edema Respiratory : Decrease bilateral air entry, basis fine bilateral crackles, no wheezes or rhonchi Gastrointestinal: soft, lax, Normal bowel sounds, Non tender Skin : Warm/Dry, No rash noted Neurological : Alert & oriented x3, No focal deficit DS: Data Data Completed and Pending Completed studies during hospitalization [Text1]: Pending at discharge 12/23/20 11:58 Surgical [PTH] Routine Procedures Insertion of Endotracheal Airway into Trachea, Via Natural or Artificial Opening Endoscopic (12/01/20) Insertion of Infusion Device into Right Atrium, Percutaneous Approach (12/01/20) Introduction of Vasopressor into Central Vein, Percutaneous Approach (12/01/20) Respiratory Ventilation, Greater than 96 Consecutive Hours (12/01/20) Ultrasonography of Superior Vena Cava, Guidance (12/01/20) Labs on day of discharge: Laboratory Results - last 24 hr 12/31/20 12/31/20 01/01/21 16:04 20:17 05:55 WBC 7.2 RBC 3.74 L Hgb 10.3 L Hct 33.6 L MCV 89.8 MCH 27.5 MCHC 30.7 L RDW 16.2 H Plt Count 281 MPV 9.5 Absolute Nucleated RBC 0.000 Nucleated RBC % (auto) 0.0 PTT (Heparin Protocol) Sodium Potassium Chloride Carbon Dioxide Anion Gap BUN Creatinine Estim Creat Clear Calc Estimated GFR POC Glucose 108 169 H Random Glucose Calcium 01/01/21 01/01/21 01/01/21 05:55 05:55 07:49 WBC RBC Hgb Hct MCV MCH MCHC RDW Plt Count MPV Absolute Nucleated RBC Nucleated RBC % (auto) PTT (Heparin Protocol) 39.4 L D Sodium 138 Potassium 4.0 Chloride 108 Carbon Dioxide 19 L Anion Gap 15 BUN 10 Creatinine 0.46 L Estim Creat Clear Calc 149.4 Estimated GFR > 60 POC Glucose 115 Random Glucose 87 Calcium 8.2 L 01/01/21 11:28 WBC RBC Hgb Hct MCV MCH MCHC RDW Plt Count MPV Absolute Nucleated RBC Nucleated RBC % (auto) PTT (Heparin Protocol) Sodium Potassium Chloride Carbon Dioxide Anion Gap BUN Creatinine Estim Creat Clear Calc Estimated GFR POC Glucose 172 H Random Glucose Calcium Discharge Plan Discharge Patient Disposition: Xfer SNF Discharge Diagnosis: Erosive esophagitis Duodenal ulcer Deep vein thrombosis, pulmonary embolism Referrals: [facility] [place] [Outside] - 1 Week Jaxon Fuentes MD [Primary Care Provider] - 1 Week Discharge Medications: New sucralfate 100 mg/mL Suspension 1 g PO QIDACHS 30 Days RF: 0 docusate sodium 100 mg Capsule 100 mg PO BID Qty: 60 RF: 0 bisacodyl 5 mg Tablet,Delayed Release (Dr/Ec) 5 mg PO DAILY Qty: 30 RF: 0 Eliquis 5 mg Tablet 5 mg PO BID Qty: 60 RF: 0 Mag&Al/Sim/Diphenhyd/Lidocaine [Magic Mouthwash] 10 ml PO Q4H PRN (Reason: oral pain) 30 Days RF: 2 omeprazole 40 mg capsule,delayed release(DR/EC) 40 mg PO BID Qty: 60 RF: 0 Continued (DME) FreeStyle Lite Strips Strip See Rx Instructions .ROUTE .MEDSUPPLY Qty: 100 RF: 8 acetaminophen 325 mg Tablet 650 mg PO Q6H PRN (Reason: Pain, Mild (Pain Scale 1-3)) Qty: 30 RF: 0 Lantus U-100 Insulin 100 unit/mL Solution 20 unit subcut DAILY Qty: 10 RF: 0 finasteride [Proscar] 5 mg Tablet 5 mg PO DAILY Qty: 20 RF: 0 insulin lispro [Humalog U-100 Insulin] 100 unit/mL Solution See Rx Instructions sliding scale dose .ROUTE .COMPLEX Qty: 10 RF: 0 Discharge Orders: Discharge Order (Routine); Ordered 01/01/21 Ordered By: Stevie Light Diet: advance to usual diet Activity on Discharge: As tolerated Stand Alone Forms: Patient Portal Discharge page Other Ambulatory Orders: Complete Blood Count no Diff (Routine) Timeframe: 1 Week Location: Determined by Patient Ordered By: Stevie Light Care Plan Goals: Read below Health Concerns: Read below Plan of Treatment: You were admitted to the hospital for evaluation of episodes of bloody vomitus. Evaluated by airplane mechanic apprentice Dr. Flores who did an endoscopy procedure that showed severe inflammation of your esophagus and an ulcer in your duodenum. You were treated with IV and oral medications with fair response over the course of hospital stay. During the hospital stay you were noticed to have swelling in your extremities and difficulty breathing. Studies showed clots in your lower extremities and in your lung which were treated with IV blood thinners. Your blood level was stable and he did not report any bleeding. You were started then on oral medication hold Eliquis that he will need for at least 3 months. Assessment: Continue omeprazole and Carafate as prescribed To follow-up with Dr. Flores as outpatient for the final result of endoscopy pathology Continue Eliquis for 3 months at least, to follow-up with PCP and GI to decide the length of treatment To repeat blood test next week Patient Instructions: Pulmonary Embolism (GEN), Deep Vein Thrombosis (GEN), Inferior Vena Cava (IVC) Filter Placement (GEN)
[2021-01-01] MEDS: Omeprazole 40 MG CAPSULE.DR PO (12:52)
== END 2021-01-01 13:35 | disposition skilled nursing facility (03) | DRG 368 ==
LOC: HO.ED 15:44 → HO.EDOVER 16:59 → HO.IMC 12-22 16:32
PROVIDERS: Internal Medicine; Radiology Diagnostic Radiology; Admitting Provider Student in an Organized Health Care Education/Training Program; Emergency Provider Emergency Medicine; PCP Internal Medicine; Visit Provider Student in an Organized Health Care Education/Training Program
PROC: 0DJ08ZZ Inspection of Upper Intestinal Tract, Via Natural or Artificial Opening Endoscopic (ICD-10-PCS; CPT 43235; principal; 2020-12-23 10:50)
PROC: 06H03DZ Insertion of Intraluminal Device into Inferior Vena Cava, Percutaneous Approach (ICD-10-PCS; principal; 2020-12-29 15:40)
DX: K21.01 Gastro-esophageal reflux disease with esophagitis, with bleeding (principal); K22.11 Ulcer of esophagus with bleeding; I26.99 Other pulmonary embolism without acute cor pulmonale; K26.4 Chronic or unspecified duodenal ulcer with hemorrhage; D62 Acute posthemorrhagic anemia; I47.1 Supraventricular tachycardia; I82.413 Acute embolism and thrombosis of femoral vein, bilateral; D72.829 Elevated white blood cell count, unspecified; K44.9 Diaphragmatic hernia without obstruction or gangrene; E11.9 Type 2 diabetes mellitus without complications; N40.0 Benign prostatic hyperplasia without lower urinary tract symptoms; L89.151 Pressure ulcer of sacral region, stage 1; Z20.822 Contact with and (suspected) exposure to COVID-19; Z86.16 Personal history of COVID-19; Z79.4 Long term (current) use of insulin; Z79.01 Long term (current) use of anticoagulants; Z79.899 Other long term (current) drug therapy
CPT/HCPCS: 36415; 37191; 71045; 71275; 74177; 80048; 80076; 81001; 82272; 82947; 83605; 83690; 83735; 83880; 84484; 85025; 85027; 85610; 85730; 86850; 86900; 87040; 87635; 88305; 88312; 88313; 88341; 88342; 93005; 93306; 93308; 93970; 96365; 96375; 97110; 97162; 97530; 99285; 99291; C1769; C1880; C1887; C1894; J1200; J1956; J2270; J2405; J2543; Q0163; Q9967

== ENCOUNTER 2021-01-30 15:57 | Emergency (ER) | payer MEDICARE, SELFPAY ==
--- NOTE | ~2021-01-30 | CT_ITS ---
EXAMINATION: CT ANGIOGRAM OF THE CHEST WITH AND WITHOUT CONTRAST (CT PULMONARY ANGIOGRAM FOR PE) CLINICAL INFORMATION: Left-sided chest pain COMPARISON: 12/29/2020 TECHNIQUE: Prior to contrast administration, noncontrast localization images were obtained. Subsequently, multidetector volumetric imaging was performed from the thoracic inlet to below the diaphragms following the administration of 80 mL Omnipaque 350 intravenous contrast. No contrast reaction reported Sagittal, coronal, and MIP oblique sagittal reformatted images were obtained on the CT workstation, uploaded to PACS, and reviewed. This CT examination was performed using dose optimization techniques as appropriate, variously including the following: *Automated exposure control *Adjustment of mA and/or kV according to patient size (this includes techniques or standardized protocols for targeted exams where dose is matched to indication/reason for exam; i.e. extremities or head) *Use of iterative reconstruction technique Total exam dose-length product 375 mGy-cm FINDINGS: QUALITY OF STUDY/CONTRAST BOLUS: Satisfactory. PULMONARY ARTERIES: No acute pulmonary emboli seen. Previously seen bilateral emboli have resolved with a few areas of minimal residual wall thickening for example left lower lobe pulmonary artery branch in image [id number]. THORACIC AORTA: No aneurysm or dissection. LUNG: There is mosaic lung attenuation consistent with small airways disease. No focal consolidation or mass. PLEURA: No pleural effusion or pneumothorax. MEDIASTINUM: Mild cardiomegaly. No pericardial effusion. No hilar or mediastinal lymphadenopathy. No evidence of septal bowing or right heart strain. CHEST WALL/AXILLA: No axillary or internal mammary lymphadenopathy. OSSEOUS STRUCTURES: Multilevel degenerative changes. No acute or suspicious osseous abnormality. UPPER ABDOMEN: There is a gallstone in the gallbladder. IVC filter in place. No adrenal mass. Left lower pole parapelvic cysts are again noted. No reflux of contrast into the hepatic veins to suggest elevated right heart pressures. CT/CT angio chest PE protocol IMPRESSION: No acute pulmonary embolus seen. Minimal residual eccentric wall thickening from the prior extensive bilateral pulmonary emboli. Mosaic lung attenuation consistent with small airways disease. VTE: negative
--- NOTE | 2021-01-30 16:40 | ECG_ITS ---
Test Reason : LEG SWELLING Blood Pressure : / mmHG Vent. Rate : 082 BPM Atrial Rate : 082 BPM P-R Int : 196 ms QRS Dur : 092 ms QT Int : 380 ms P-R-T Axes : 045 -06 037 degrees QTc Int : 443 ms Normal sinus rhythm Possible Left atrial enlargement Borderline ECG When compared with ECG of 21-DEC-2020 12:00, T wave inversion no longer evident in Lateral leads Referred By: Christy Jaffe Electronically Signed By:NORAH RAMIREZ MD
--- NOTE | 2021-01-30 16:43 | ED_ITS ---
HPI - Chest Pain General Chief Complaint: Extremity Injury, Lower Stated Complaint: CP,LEG SWELLING Time Seen by Provider: 01/30/21 16:37 Source: patient, EMS, RN notes reviewed and old records reviewed Mode of arrival: EMS Limitations: other (poor historian) History of Present Illness HPI narrative: 71 yo male with LE edema, DVT last took eliquis yesterday has IVC in place, DM, erosive esophagitis with recent GIB admission, COVID dx with prolonged ICU stay - resp failure/PTX, bacteremia was just DC home two days ago from SNF - at this time c/o LE swelling ran out of his lasix, cannot afford eliquis, he also notes L sided flank/chest pain MD complaint: chest pain Pertinent past history: other (PE) Onset (ago): day(s) (1) Timing of current episode: episodic Onset: during rest and during exertion Pain location: left chest and lateral Pain radiation: none Severity: moderate Quality: sharp Relieving factors: nothing Exacerbating factors: movement Context: recent illness, recent immobilization and history of DVT/PE Associated symptoms: leg swelling Treatment prior to arrival: none Related Data Previous Rx's Medication Instructions Recorded blood sugar diagnostic #100 ea 10/19/20 Lantus U-100 Insulin 20 unit SUBCUT DAILY #10 ml 12/16/20 acetaminophen 650 mg PO Q6H PRN #30 tab 12/16/20 finasteride [Proscar] 5 mg PO DAILY #20 tab 12/16/20 insulin lispro [Humalog U-100 See Rx Instructions .ROUTE 12/16/20 Insulin] .COMPLEX #10 ml Mag&Al/Sim/Diphenhyd/Lidocaine 10 ml PO Q4H PRN 30 Days 01/01/21 [Magic Mouthwash] apixaban [Eliquis] 5 mg PO BID #60 tab 01/01/21 bisacodyl 5 mg PO DAILY #30 tab 01/01/21 diphenhydramine HCl [Benadryl] 25 mg PO Q6H PRN #60 cap 01/01/21 docusate sodium 100 mg PO BID #60 cap 01/01/21 omeprazole 40 mg PO BID #60 cap 01/01/21 sucralfate 1 g PO QIDACHS 30 Days ml 01/01/21 Allergies Allergy/AdvReac Type Severity Reaction Status Date / Time metronidazole [Flagyl] Allergy Unknown Insomnia Verified 07/28/20 14:07 TOURNIQUET FROM IV KIT Allergy Intermediate HIVES Uncoded 05/28/20 16:59 Review of Systems Review of Systems: Constitutional : No Weight loss, No Fever, No Chills ENT/Mouth : No sore throat, No Rhinorrhea Eyes: No Eye Pain, No Swelling Cardiovascular : pos Chest Pain, pos SOB, no Dyspnea on Exertion, No Orthopnea, pos Edema, No Palpitations Respiratory : No Cough, No Sputum Gastrointestinal : pos Nausea, No Vomiting, No Diarrhea, No abdominal Pain, No Hematochezia, No Melena, pos constipation Genitourinary : No Dysuria, No Urinary Frequency Musculoskeletal : No joint pain, No Myalgias, No Joint Swelling Skin : No Skin Lesions, No rash Neuro : No Weakness, No Numbness, No Dizziness, No Headache Psych : pos Anxiety/Panic, No Depression Heme/Lymph: No Bruising, No Lymphadenopathy Endocrine : No Polyuria, No Polydipsia All other systems reviewed and are negative PMFSH Past Medical History Attestation statement: The following information was validated with the patient. Medical History Bacteremia due to Gram-positive bacteria Bacteremia due to Gram-positive bacteria BPH loc w urin obs/LUTS Chronic GERD COVID-19 Diabetes type 2, controlled DVT (deep venous thrombosis) Irritable bowel syndrome Nephrolithiasis Pulmonary emboli Surgical History History of kidney stones Family History Family History Father Medical history unknown Mother Medical history unknown Social History Social History Household Members: None Housing: [facility] Alcohol intake: never Smoking Status: Never smoker Tobacco Type: Cigarette Smoked in Last 30 Days: No Use of substances other than those prescribed or required for medical reasons: No Advance Directives: Yes Advance Directives on File: Yes Advance Directives Date on File: 12/17/20 service: No Current occupational status: retired Physical Exam Vital Signs: Vital Signs: Last Vital Signs Temp 98.6 F 01/30/21 17:25 Pulse 82 01/30/21 20:00 Resp 16 01/30/21 20:00 BP 112/70 01/30/21 20:00 Pulse Ox 97 01/30/21 20:00 Body Mass Index 30.1 Appearance: Alert. Oriented X3. No acute distress. Anxious Eyes: Pupils equal, round and reactive to light. ENT: Pharynx normal. Neck: Normal inspection. Neck supple. CVS: tachycardic heart rate and rhythm. Pulses normal. Respiratory: No respiratory distress. Breath sounds normal. Abdomen: Soft and nontender. Skin: Skin warm and dry. Normal skin color. Normal skin turgor. Extremities: 2+ bilateral pitting edema up to calves no erythema/warmth Neuro: Oriented X 3. No motor deficit. No sensory deficit. Course Course Course Narrative: no acute findings, no need for admission, attempting to reach family about medication concerns, no PE no pneumonia attempt to reach son listed - message left 840pm son called back and states he needs help with medications, was not given medictions from [facility]. they cannot afford them at this time will place PT/CM consult Patient placed in physician observation at 857pm . The indication for observation is that the patient needs more time to see CM and PT to help with medication changes and access to medications. At this time the patient is well developed well nourished, lungs clear, CV RRR, abd nontender, neuro is intact. MDM - Chest Pain MDM Narrative Medical decision making narrative: 71 yo male with LE edema, DVT last took eliquis yesterday has IVC in place, DM, erosive esophagitis with recent GIB admission, COVID dx with prolonged ICU stay - resp failure/PTX, bacteremia was just DC home two days ago from SNF - at this time c/o LE swelling ran out of his lasix, cannot afford eliquis, he also notes L sided flank/chest pain - at this time will need labs, PE study, likely IV lasix for LE, I am waiting for his son to arrive to discuss what medications he actually has and why he's not able to fill them, dispo per results and findings. Lab Data Result diagrams: 01/30/21 17:27 01/30/21 17:27 Labs: Lab Results 01/30/21 01/30/21 01/30/21 Range/Units 17:27 17:27 17:27 WBC 8.6 (4.8-10.8) X10*3/uL RBC 3.67 L (4.60-5.80) X10*6/uL Hgb 10.4 L (14.0-18.0) g/dl Hct 33.3 L (42-52) % MCV 90.7 (80-98) fL MCH 28.3 (27.0-33.0) pg MCHC 31.2 (31.0-36.0) g/dl RDW 15.9 (11.0-16.0) % Plt Count 266 (160-400) X10*3/uL MPV 9.1 L (9.4-12.4) fL Immature Gran % (Auto) 0.4 (0.0-0.4) % Neut % (Auto) 52.8 (45-73) % Lymph % (Auto) 36.6 (20-40) % [place] % (Auto) 7.5 (2-11) % Eos % (Auto) 2.2 (0-4) % Baso % (Auto) 0.5 (0-2) % Lymph # (Auto) 3.1 (1.2-4.9) X10*3/uL [place] # (Auto) 0.6 (0.1-1.2) X10*3/uL Eos # (Auto) 0.2 (0.0-0.4) X10*3/uL Baso # (Auto) 0.0 (0.0-0.2) X10*3/uL Abs Immat Gran (auto) 0.03 (0.00-0.03) X10*3/uL Absolute Neuts (auto) 4.5 (2.0-8.3) X10*3/uL Absolute Nucleated RBC 0.000 (0.0-0.012) X10*3/uL Nucleated RBC % (auto) 0.0 (0.0-0.2) /100WBC PT (10.8-13.0) SEC INR (0.9-1.1) APTT (24.1-38.0) SEC Sodium 142 (135-145) mmol/L Potassium 3.8 (3.3-5.1) mmol/L Chloride 110 H (96-108) mmol/L Carbon Dioxide 22 (22-29) mmol/L Anion Gap 14 (12-20) BUN 16 D (9-16) mg/dL Creatinine 0.50 (0.5-1.4) mg/dL Estim Creat Clear Calc 138.3 Estimated GFR > 60 POC Glucose (60-115) mg/dL Random Glucose 93 (60-115) mg/dL Calcium 8.7 D (8.4-10.2) mg/dL Magnesium (1.6-2.6) mg/dL Total Bilirubin (0.0-1.0) mg/dL Direct Bilirubin (0.0-0.5) mg/dL AST (5-37) U/L ALT (0-40) U/L Alkaline Phosphatase (39-117) U/L Troponin I High Sens (<3.5-35.0) ng/L B-Natriuretic Peptide 97 (<100) pg/mL Total Protein (6.5-8.0) g/dL Albumin (3.5-5.0) g/dL Lipase (8-78) U/L 01/30/21 01/30/21 01/30/21 Range/Units 17:27 17:27 17:27 WBC (4.8-10.8) X10*3/uL RBC (4.60-5.80) X10*6/uL Hgb (14.0-18.0) g/dl Hct (42-52) % MCV (80-98) fL MCH (27.0-33.0) pg MCHC (31.0-36.0) g/dl RDW (11.0-16.0) % Plt Count (160-400) X10*3/uL MPV (9.4-12.4) fL Immature Gran % (Auto) (0.0-0.4) % Neut % (Auto) (45-73) % Lymph % (Auto) (20-40) % [place] % (Auto) (2-11) % Eos % (Auto) (0-4) % Baso % (Auto) (0-2) % Lymph # (Auto) (1.2-4.9) X10*3/uL [place] # (Auto) (0.1-1.2) X10*3/uL Eos # (Auto) (0.0-0.4) X10*3/uL Baso # (Auto) (0.0-0.2) X10*3/uL Abs Immat Gran (auto) (0.00-0.03) X10*3/uL Absolute Neuts (auto) (2.0-8.3) X10*3/uL Absolute Nucleated RBC (0.0-0.012) X10*3/uL Nucleated RBC % (auto) (0.0-0.2) /100WBC PT 13.5 H (10.8-13.0) SEC INR 1.1 (0.9-1.1) APTT 36.6 (24.1-38.0) SEC Sodium (135-145) mmol/L Potassium (3.3-5.1) mmol/L Chloride (96-108) mmol/L Carbon Dioxide (22-29) mmol/L Anion Gap (12-20) BUN (9-16) mg/dL Creatinine (0.5-1.4) mg/dL Estim Creat Clear Calc Estimated GFR POC Glucose (60-115) mg/dL Random Glucose (60-115) mg/dL Calcium (8.4-10.2) mg/dL Magnesium 1.6 (1.6-2.6) mg/dL Total Bilirubin 0.5 (0.0-1.0) mg/dL Direct Bilirubin < 0.2 (0.0-0.5) mg/dL AST 11 D (5-37) U/L ALT 8 (0-40) U/L Alkaline Phosphatase 80 D (39-117) U/L Troponin I High Sens < 3.5 (<3.5-35.0) ng/L B-Natriuretic Peptide (<100) pg/mL Total Protein 6.0 L (6.5-8.0) g/dL Albumin 3.0 L (3.5-5.0) g/dL Lipase 16 (8-78) U/L 01/30/21 Range/Units 17:47 WBC (4.8-10.8) X10*3/uL RBC (4.60-5.80) X10*6/uL Hgb (14.0-18.0) g/dl Hct (42-52) % MCV (80-98) fL MCH (27.0-33.0) pg MCHC (31.0-36.0) g/dl RDW (11.0-16.0) % Plt Count (160-400) X10*3/uL MPV (9.4-12.4) fL Immature Gran % (Auto) (0.0-0.4) % Neut % (Auto) (45-73) % Lymph % (Auto) (20-40) % [place] % (Auto) (2-11) % Eos % (Auto) (0-4) % Baso % (Auto) (0-2) % Lymph # (Auto) (1.2-4.9) X10*3/uL [place] # (Auto) (0.1-1.2) X10*3/uL Eos # (Auto) (0.0-0.4) X10*3/uL Baso # (Auto) (0.0-0.2) X10*3/uL Abs Immat Gran (auto) (0.00-0.03) X10*3/uL Absolute Neuts (auto) (2.0-8.3) X10*3/uL Absolute Nucleated RBC (0.0-0.012) X10*3/uL Nucleated RBC % (auto) (0.0-0.2) /100WBC PT (10.8-13.0) SEC INR (0.9-1.1) APTT (24.1-38.0) SEC Sodium (135-145) mmol/L Potassium (3.3-5.1) mmol/L Chloride (96-108) mmol/L Carbon Dioxide (22-29) mmol/L Anion Gap (12-20) BUN (9-16) mg/dL Creatinine (0.5-1.4) mg/dL Estim Creat Clear Calc Estimated GFR POC Glucose 79 (60-115) mg/dL Random Glucose (60-115) mg/dL Calcium (8.4-10.2) mg/dL Magnesium (1.6-2.6) mg/dL Total Bilirubin (0.0-1.0) mg/dL Direct Bilirubin (0.0-0.5) mg/dL AST (5-37) U/L ALT (0-40) U/L Alkaline Phosphatase (39-117) U/L Troponin I High Sens (<3.5-35.0) ng/L B-Natriuretic Peptide (<100) pg/mL Total Protein (6.5-8.0) g/dL Albumin (3.5-5.0) g/dL Lipase (8-78) U/L ECG Data ECG #1: Attestation: I personally reviewed and interpreted this ECG as follows: ECG interpretation date: 01/30/21 ECG interpretation time: 17:25 Interpretation: Rate: 82 Rhythm: NSR [place]: left Normal P waves. Normal [place]. Normal QRS complex. ST T wave : normal no MILLICENT qTC:normal prior studies: no acute ischemia The study has been interpreted contemporaneously by me. . Discharge Plan Discharge Clinical Impression: Anxiety, Bilateral edema of lower extremity Prescriptions: No Action (DME) FreeStyle Lite Strips Strip See Rx Instructions .ROUTE .MEDSUPPLY Qty: 100 RF: 8 sucralfate 100 mg/mL Suspension 1 g PO QIDACHS 30 Days RF: 0 docusate sodium 100 mg Capsule 100 mg PO BID Qty: 60 RF: 0 bisacodyl 5 mg Tablet,Delayed Release (Dr/Ec) 5 mg PO DAILY Qty: 30 RF: 0 Eliquis 5 mg Tablet 5 mg PO BID Qty: 60 RF: 0 Mag&Al/Sim/Diphenhyd/Lidocaine [Magic Mouthwash] 10 ml PO Q4H PRN (Reason: oral pain) 30 Days RF: 2 omeprazole 40 mg capsule,delayed release(DR/EC) 40 mg PO BID Qty: 60 RF: 0 diphenhydramine HCl [Benadryl] 25 mg capsule 25 mg PO Q6H PRN (Reason: itching) Qty: 60 RF: 0 acetaminophen 325 mg Tablet 650 mg PO Q6H PRN (Reason: Pain, Mild (Pain Scale 1-3)) Qty: 30 RF: 0 Lantus U-100 Insulin 100 unit/mL Solution 20 unit subcut DAILY Qty: 10 RF: 0 finasteride [Proscar] 5 mg Tablet 5 mg PO DAILY Qty: 20 RF: 0 insulin lispro [Humalog U-100 Insulin] 100 unit/mL Solution See Rx Instructions sliding scale dose .ROUTE .COMPLEX Qty: 10 RF: 0
--- NOTE | 2021-01-30 16:49 | PC.NURSE ---
message left for son to call ed.
[2021-01-30 17:25] VITALS: BP 120/76; BP 135/76; PULSE 101; PULSE 92; RESP 18; TEMP 37; O2SAT 100; O2SAT 99; BMI 30.1
[2021-01-30 17:37] LABS: Basophils Percent Auto 0.5 % (0-2); Eosinophils Absolute Auto 0.2 X10*3/uL (0.0-0.4); Eosinophils Percent Auto 2.2 % (0-4); Hematocrit 33.3 % (42-52); Hemoglobin 10.4 g/dl (14.0-18.0); Imm Gran Abs Auto 0.03 X10*3/uL (0.00-0.03); Imm Gran Pct Auto 0.4 % (0.0-0.4); Lymphocytes Absolute Auto 3.1 X10*3/uL (1.2-4.9); Lymphocytes Percent Auto 36.6 % (20-40); MANUAL DIFF FLAG NO; Mean Corpuscular HGB Conc 31.2 g/dl (31.0-36.0); Mean Corpuscular Hemoglobin 28.3 pg (27.0-33.0); Mean Corpuscular Volume 90.7 fL (80-98); Mean Platelet Volume 9.1 fL (9.4-12.4); Monocytes Absolute Auto 0.6 X10*3/uL (0.1-1.2); Monocytes Percent Auto 7.5 % (2-11); Neutrophils Absolute Auto 4.5 X10*3/uL (2.0-8.3); Neutrophils Percent Auto 52.8 % (45-73); Platelet Count 266 X10*3/uL (160-400); Red Blood Count 3.67 X10*6/uL (4.60-5.80); Red Cell Distribution Width 15.9 % (11.0-16.0); White Blood Count 8.6 X10*3/uL (4.8-10.8)
[2021-01-30 17:45] LABS: INTERNATIONAL NORM RATIO 1.1 (0.9-1.1); Prothrombin Time 13.5 SEC (10.8-13.0)
[2021-01-30 17:48] LABS: Partial Thromboplastin Time 36.6 SEC (24.1-38.0)
[2021-01-30 17:52] LABS: Glucose, Whole Blood 79 mg/dL (60-115)
[2021-01-30 18:02] LABS: Alanine Aminotransferase 8 U/L (0-40); Alkaline Phosphatase 80 U/L (39-117); Anion Gap 14 (12-20); Aspartate Amino Transferase 11 U/L (5-37); Bilirubin Direct < 0.2 mg/dL (0.0-0.5); Bilirubin Total 0.5 mg/dL (0.0-1.0); Blood Urea Nitrogen 16 mg/dL (9-16); Calcium 8.7 mg/dL (8.4-10.2); Carbon Dioxide 22 mmol/L (22-29); Chloride 110 mmol/L (96-108); Creatinine Clr Calc Pharmacy 138.3; Estimated Glomerular Filt Rate > 60; Glucose Random 93 mg/dL (60-115); Lipase 16 U/L (8-78); Magnesium 1.6 mg/dL (1.6-2.6); Potassium 3.8 mmol/L (3.3-5.1); Sodium 142 mmol/L (135-145)
[2021-01-30 18:06] LABS: B Type Natriuretic Peptide 97 pg/mL (<100); Troponin-I High Sensitivity < 3.5 ng/L (<3.5-35.0)
[2021-01-30] MEDS: iohexoL 350 MG/ML 100 ML INFUS..BTL 65 ML IV (19:34)
[2021-01-30 20:00] VITALS: BP 112/70; PULSE 82; RESP 16; O2SAT 97
[2021-01-30] MEDS: Furosemide 40 MG/4 ML VIAL IVPUSH (20:23)
--- NOTE | 2021-01-30 20:51 | PC.NURSE ---
contact made to son. md cox discussing plan of care with son at this time.
--- NOTE | 2021-01-30 21:04 | PC.NURSE ---
Pt visibly upset and verbally abusive to staff regarding his change of status that to pt case management and removed from trauma bay. per patient you're abusive and this isnt' right because i'm peeing every 15 minutes. I deserve to be in a room. pt educated that there are other individuals in the section that require emergent care and his needs will be reassessed on hourly basis. urnial emptied of 350 mls.
[2021-01-31 08:58] VITALS: BP 107/63; PULSE 78; RESP 18; TEMP 36.5; O2SAT 98
--- NOTE | 2021-01-31 09:00 | PC.NURSE ---
Pt calm and cooperative. Awaiting PT consult. VSS.
[2021-01-31 09:46] LABS: Glucose, Whole Blood 156 mg/dL (60-115)
--- NOTE | 2021-01-31 12:06 | MHC.CM.PN ---
EMR REVIEWED, CM MET W/PT WHO REPORTED HE HAS MEDICARE PART A & B HOWEVER LOST HIS PART D COVERAGE FROM NONPAYMENT AND CANNOT AFFORD HIS ELIQUIS, CM DID GIVE PT A 30 DAY FREE CARD AND INFO GIVEN TO PT'S PHARMACY ON FILE, PT GIVEN PRINT OUT OF MEDICARE PART D PLANS W/NUMBER TO CALL FOR ASSISTANCE AND DIRECTIONS TO DISCUSS CHANGING THE ELIQUIS W/HIS PCP IF HE STILL CANNOT AFFORD IT, PT HAS PCP APPT W/BETZY SHAH ON 02/04/21 AT 1:45PM, REFERRAL SENT TO [facility] DUE TO ONGOING CONCERN REGARDING INSURANCE. REFERRAL FOR [facility] FOR RESUMPTION OF CARE.
--- NOTE | 2021-01-31 13:00 | PC.NURSE ---
Pt ambulating with a steady gait with use of a walker. He has a walker at home and lives with his son. [facility] sees him routinely at home as well.
== END 2021-01-31 14:45 | disposition home or self-care (01) ==
PROVIDERS: Emergency Provider Emergency Medicine
DX: F41.9 Anxiety disorder, unspecified (principal); R60.0 Localized edema; E11.9 Type 2 diabetes mellitus without complications; F17.210 Nicotine dependence, cigarettes, uncomplicated; Z86.718 Personal history of other venous thrombosis and embolism; Z79.01 Long term (current) use of anticoagulants; Z79.4 Long term (current) use of insulin; Z86.16 Personal history of COVID-19; Z86.711 Personal history of pulmonary embolism; Z87.442 Personal history of urinary calculi
CPT/HCPCS: 36415; 71275; 80048; 80076; 82947; 83690; 83735; 83880; 84484; 85025; 85610; 85730; 93005; 96374; 99285; J1940; Q9967

== ENCOUNTER 2021-02-04 14:40 | Outpatient (REF) | payer MEDICARE, SELFPAY ==
[2021-02-04 15:09] LABS: MANUAL DIFF FLAG NO
[2021-02-04 15:15] LABS: Basophils Absolute Auto 0.1 X10*3/uL (0.0-0.2); Basophils Percent Auto 0.6 % (0-2); Eosinophils Absolute Auto 0.2 X10*3/uL (0.0-0.4); Eosinophils Percent Auto 2.7 % (0-4); Hematocrit 36.6 % (42-52); Hemoglobin 11.4 g/dl (14.0-18.0); Imm Gran Abs Auto 0.02 X10*3/uL (0.00-0.03); Imm Gran Pct Auto 0.2 % (0.0-0.4); Lymphocytes Percent Auto 44.7 % (20-40); Mean Corpuscular HGB Conc 31.1 g/dl (31.0-36.0); Mean Corpuscular Hemoglobin 28.1 pg (27.0-33.0); Mean Corpuscular Volume 90.4 fL (80-98); Mean Platelet Volume 9.3 fL (9.4-12.4); Monocytes Absolute Auto 0.6 X10*3/uL (0.1-1.2); Monocytes Percent Auto 7.1 % (2-11); Neutrophils Percent Auto 44.7 % (45-73); Platelet Count 325 X10*3/uL (160-400); Red Blood Count 4.05 X10*6/uL (4.60-5.80); Red Cell Distribution Width 15.9 % (11.0-16.0)
[2021-02-04 15:24] LABS: Estimated Average Glucose 114 mg/dL; Hemoglobin A1c % 5.6 %
[2021-02-04 15:42] LABS: Anion Gap 14 (12-20); Blood Urea Nitrogen 17 mg/dL (9-16); Calcium 9.3 mg/dL (8.4-10.2); Carbon Dioxide 20 mmol/L (22-29); Chloride 108 mmol/L (96-108); Estimated Glomerular Filt Rate > 60; Glucose Random 114 mg/dL (60-115); Potassium 3.9 mmol/L (3.3-5.1); Sodium 138 mmol/L (135-145)
== END 2021-02-04 14:41 | disposition home or self-care (01) ==
LOC: HO.LAB 14:40
PROVIDERS: PCP Internal Medicine; Visit Provider Internal Medicine
DX: Z00.00 Encounter for general adult medical examination without abnormal findings (principal); E11.9 Type 2 diabetes mellitus without complications; R51.9 Headache, unspecified
CPT/HCPCS: 36415; 80048; 83036; 85025

== ENCOUNTER 2021-02-10 09:11 | Outpatient (REF) | payer MEDICARE, SELFPAY ==
--- NOTE | ~2021-02-10 | US_ITS ---
EXAMINATION: US RETROPERITONEAL LIMITED (RENAL ONLY) CLINICAL INFORMATION: Calculus of kidney. COMPARISON: CT abdomen and pelvis 12/21/2020. Renal ultrasound 08/21/2019. Ultrasound abdomen complete 06/27/2019. X-ray abdomen KUB 01/18/2019. TECHNIQUE: Real-time imaging of the kidneys. FINDINGS: RIGHT KIDNEY: 14.4 x 6.6 x 6.0 cm (SAG x AP x TRV). The kidney is normal in size, contour, and echogenicity. Renal cortical thickness is normal. No renal calculi or hydronephrosis. There is anechoic cyst versus prominent pyramid in the lower pole measuring 1.3 x 0.9 x 1.1 cm. LEFT KIDNEY: 13.0 x 5.5 x 5.6 cm (SAG x AP x TRV). The kidney is normal in size, contour, and echogenicity. Renal cortical thickness is normal. No hydronephrosis. There is anechoic cyst medially in the midpole measuring 0.7 x 1.4 x 1.2 cm. On the last ultrasound it measures 0.8 x 1.2 x 1.1 cm There is a nonobstructive small echogenic stone with focal caliectasis seen in the upper pole measuring 0.2 cm. A small complex cystic area seen laterally in the [id number] pole measuring 3.1 x 2.1 x 3.0 cm. On the 08/21/2019 ultrasound, it measured 1.8 x 1.6 x 2.0 cm and prior to that 1.9 x 1.7 cm. US/US renal BI IMPRESSION: Complex cystic area seen in the [id number]-hn-[id number] pole left kidney measuring 3.1 x 2.1 x 3.0 cm. It has slightly increased in size since the last study. There is nonobstructive echogenic calculi upper pole left kidney with likely focal caliectasis. Bilateral renal cysts. The right renal cyst is new.
== END 2021-02-10 09:12 | disposition home or self-care (01) ==
LOC: HO.US 09:11
PROVIDERS: Visit Provider Urology
DX: N20.0 Calculus of kidney (principal)
CPT/HCPCS: 76775

== ENCOUNTER 2021-11-26 10:53 | Outpatient (REF) | payer MEDICARE, SELFPAY ==
--- NOTE | ~2021-11-26 | XR_ITS ---
EXAMINATION: XR SHOULDER, LEFT XR HAND, RIGHT CLINICAL INFORMATION: Pain left shoulder and fourth digit right hand. COMPARISON: None TECHNIQUE: Left shoulder 4 views and right hand 4 views. FINDINGS: LEFT SHOULDER: There is no visible acute fracture, dislocation or subluxation seen. No bony erosive changes. The soft tissues are normal. RIGHT HAND: There is no bony abnormality to suspect any fracture or dislocation. Especially the fourth digit distal phalanx appears unremarkable. The soft tissues are normal. XR/XR shoulder LT min 2V IMPRESSION: Unremarkable left shoulder exam. Unremarkable right hand exam.
--- NOTE | ~2021-11-26 | XR_ITS ---
EXAMINATION: XR SHOULDER, LEFT XR HAND, RIGHT CLINICAL INFORMATION: Pain left shoulder and fourth digit right hand. COMPARISON: None TECHNIQUE: Left shoulder 4 views and right hand 4 views. FINDINGS: LEFT SHOULDER: There is no visible acute fracture, dislocation or subluxation seen. No bony erosive changes. The soft tissues are normal. RIGHT HAND: There is no bony abnormality to suspect any fracture or dislocation. Especially the fourth digit distal phalanx appears unremarkable. The soft tissues are normal. XR/XR hand RT 2V IMPRESSION: Unremarkable left shoulder exam. Unremarkable right hand exam.
[2021-11-26 11:14] LABS: MANUAL DIFF FLAG NO
[2021-11-26 11:39] LABS: Basophils Percent Auto 0.4 % (0-2); Eosinophils Absolute Auto 0.2 X10*3/uL (0.0-0.4); Eosinophils Percent Auto 1.6 % (0-4); Hematocrit 41.5 % (42.0-52.0); Hemoglobin 13.2 g/dl (14.0-18.0); Imm Gran Abs Auto 0.03 X10*3/uL (0.00-0.03); Imm Gran Pct Auto 0.3 % (0.0-0.4); Lymphocytes Absolute Auto 4.3 X10*3/uL (1.2-4.9); Lymphocytes Percent Auto 46.1 % (20-40); Mean Corpuscular HGB Conc 31.8 g/dl (31.0-36.0); Mean Corpuscular Hemoglobin 27.3 pg (27.0-33.0); Mean Corpuscular Volume 85.9 fL (80.0-98.0); Mean Platelet Volume 9.9 fL (9.4-12.4); Monocytes Absolute Auto 0.6 X10*3/uL (0.1-1.2); Monocytes Percent Auto 6.7 % (2-11); Neutrophils Absolute Auto 4.1 x10*3/uL (2.0-8.3); Neutrophils Percent Auto 44.9 % (45-73); Platelet Count 226 X10*3/uL (160-400); Red Blood Count 4.83 X10*6/uL (4.60-5.80); Red Cell Distribution Width 14.3 % (11.0-16.0); White Blood Count 9.2 X10*3/uL (4.8-10.8)
[2021-11-26 11:55] LABS: Estimated Average Glucose 177 mg/dL; Hemoglobin A1c % 7.8 %
[2021-11-26 12:35] LABS: Alanine Aminotransferase 18 U/L (0-40); Albumin Level 4.2 g/dL (3.5-5.0); Alkaline Phosphatase 85 U/L (39-117); Anion Gap 16 (12-20); Aspartate Amino Transferase 14 U/L (5-37); Bilirubin Total 0.6 mg/dL (0.0-1.0); Blood Urea Nitrogen 15 mg/dL (9-16); Calcium 9.7 mg/dL (8.4-10.2); Carbon Dioxide 21 mmol/L (22-29); Chloride 106 mmol/L (96-108); Cholesterol 205 mg/dL; Estimated Glomerular Filt Rate > 60; Glucose Fasting 135 mg/dL (60-99); HDL Cholesterol 50 mg/dL; LDL Cholesterol Calculated 133 mg/dl; Potassium 4.2 mmol/L (3.3-5.1); Sodium 139 mmol/L (135-145); Total Protein 7.6 g/dL (6.5-8.0); Triglycerides 113 mg/dL
[2021-11-26 12:36] LABS: Thyroid Stimulating Hormone 0.89 uIU/mL (0.32-4.0)
[2021-11-26 12:52] LABS: Creatinine Urine 156.89 mg/dL; Microalbum/Creatinine Ratio Ur 11.4 ug/mg cr
== END 2021-11-26 10:54 | disposition home or self-care (01) ==
LOC: HO.LAB 10:53
PROVIDERS: PCP Internal Medicine; Visit Provider Internal Medicine
DX: Z00.00 Encounter for general adult medical examination without abnormal findings (principal); Z13.0 Encounter for screening for diseases of the blood and blood-forming organs and certain disorders involving the immune mechanism; M79.643 Pain in unspecified hand; M25.512 Pain in left shoulder; E11.9 Type 2 diabetes mellitus without complications
CPT/HCPCS: 36415; 73030; 73120; 80053; 80061; 82043; 83036; 84443; 85025

== ENCOUNTER → 2021-12-08 10:13 | Outpatient (BNVA) | payer MEDICARE, SELFPAY | PROVIDERS: PCP Internal Medicine; Visit Provider Orthopaedic Surgery | DX: M65.341 Trigger finger, right ring finger (principal) | CPT/HCPCS: 99202 ==

== ENCOUNTER 2021-12-13 10:04 | Day surgery (SDC) | payer MEDICARE, SELFPAY ==
--- NOTE | 2021-12-13 09:17 | W.PM.OPN ---
Operative Note Operative Note Date of Service: 12/13/21 Narrative: Operative Note Preop diagnosis: 1. Right ring finger Trigger finger Postop diagnosis: 1. Right ring finger Trigger finger Procedure: 1. Right ring finger A1 bg release Surgeon: Thais Walter MD Anesthesia: local block using 1% lidocaine with epinephrine Findings: No locking or catching after A1 bg release EBL: Less than 5 mL Tourniquet time: None Specimens: None Complications: None Disposition: Brought to recovery room in stable condition Plan: Follow-up for 10-14 days for wound check and suture removal Indications: The patient is 71 years old, with a right ring finger trigger finger that has been unresponsive to nonoperative management. The risks and benefits of operative treatment including but not limited to risk of damage to blood vessels, nerves, tendons, infection, persistent pain, persistent symptoms, recurrence or possible need for additional surgery were discussed with the patient and the patient wishes to proceed with surgery. Procedure: Once consent was obtained a local block was performed in the preop area using a combination of 1% lidocaine with epinephrine. The patient was then brought back to the operating suite and placed on the operative table in supine position. A tourniquet was applied to the proximal aspect of the right upper extremity and the limb was prepped and draped in a standard surgical fashion. Once assured that we had a good block, a 1.5 cm oblique incision was made centered over the A1 bg of the right ring . The incision was made through the skin to the subcutaneous tissues using a #15 blade. Careful dissection was made down to the level of the A1 bg using tenotomy scissors, with care being taken to protect the nearby neurovascular structures. A longitudinal incision was made in the A1 bg 1st using a #15 blade, then using tenotomy scissors under direct visualization. The A1 bg was noted to be thickened. Following our A1 bg release, we no longer saw any locking or catching of the digit with flexion and extension. Once satisfied with our A1 bg release the wound was copiously irrigated with normal saline and hemostasis was obtained with a brief period of local pressure. The skin edges were reapproximated with some 5.0 nylon suture material and a sterile dressing was applied. The patient appears to have tolerated the procedure well and with no complications. All digits were well vascularized at the conclusion of the case.
[2021-12-13 11:06] VITALS: BMI 28.7
[2021-12-13 11:08] VITALS: BP 162/90; PULSE 81; RESP 16; TEMP 36.6; O2SAT 99
--- NOTE | 2021-12-13 11:55 | MHC.SHP ---
Pre-Procedural Eval Section A Date of Service: 12/13/21 The patient is an INPATIENT: No Changes since office visit: No Cold of Flu in the past 2 weeks, No New Medical Problems, No Changes in Medication and No Patient answered all questions The History & Physical has been completed within 30 days and I have reviewed it.: Yes Section B Chief Complaint: trigger finger Allergies: Allergies Allergy/AdvReac Type Severity Reaction Status Date / Time metronidazole [Flagyl] Allergy Unknown Insomnia Verified 12/10/21 10:55 TOURNIQUET FROM IV KIT Allergy Intermediate HIVES Uncoded 12/08/21 10:29 Plan I have reviewed the history and physical and performed a pertinent physical examination on my patient. No changes have occurred unless specified.
[2021-12-13 12:34] VITALS: BP 136/85; PULSE 82; RESP 20; TEMP 37.1; O2SAT 96
== END 2021-12-13 12:41 | disposition home or self-care (01) ==
PROVIDERS: PCP Internal Medicine; Visit Provider Orthopaedic Surgery
PROC: (CPT 26055; principal; 2021-12-13 11:50)
DX: M65.341 Trigger finger, right ring finger (principal); E11.9 Type 2 diabetes mellitus without complications; Z79.84 Long term (current) use of oral hypoglycemic drugs; Z88.8 Allergy status to other drugs, medicaments and biological substances; Z86.16 Personal history of COVID-19
CPT/HCPCS: 26055; J0171

== ENCOUNTER 2021-12-22 10:00 | Outpatient (RCR) | payer MEDICARE, SELFPAY ==
--- NOTE | 2021-11-26 16:01 | MHC.PT.EP ---
[facility] [place] Office [place] Office [place] Office [address] [phone] F: [phone] F: [phone] F: [phone] F: [phone] Physical Therapy Plan of Care Date of Evaluation: Date of Surgery: N/A Diagnosis: pain in R shoulder Assessment: pt presents to physical therapy with pain, decreased range of motion, decreased strength, impaired functional mobility, impaired postural awareness, and gait deviations. pt is a fair candidate for skilled PT due to age, potential remediation of impairments, typical disease/condition progression and prognosis, comorbidities, and motivation. pt would benefit from tailored strengthening and stretching exercise program, functional training, gait training, postural re-training, neuromuscular re-education, modalities as needed for pain, equipment safety demonstration. Frequency and Duration: The patient will be seen 1x/wk for 6 wks Short Term Goals: pt will be I w/ HEP to promote self-management of condition. pt will improve B shoulder flexion by 10 degrees to promote ease in reaching higher shelves for cooking utensils for meal prep. Mcc Goals: pt will report a statistically significant improvement in self-reported outcome measure, SPADI, to promote return to PLOF. pt will carry 10# object to 15 ft to promote return to carrying groceries. Treatment Plan: Modalities to reduce pain, spasms and effusion. Manual therapy to restore motion and function. Therapeutic exercise to improve strength and flexibility. Neuromuscular re-education for posture and balance. Therapeutic activities to return to functional activities of daily living. Electronically signed by: Rose Armstrong PT, DPT Please sign and return to therapist. Thank you for your referral.
--- NOTE | 2022-01-05 13:35 | MHC.PT.DC ---
[facility] [place] [facility] [place] [facility] [place] Office [address] Viky Najera 140 [facility] [phone] F: [phone] F: [phone] F: [phone] F: [phone] Physical Therapy Discharge Report Diagnosis: pain in R shoulder Date of Surgery: N/A Date of Evaluation: 11/26/21 Date of Discharge: 01/05/22 Treatments to Date: 4 Cancellations to Date: 0 No Shows to Date: 3 Discharge Status: Visit Non-compliance Discharge Summary: The patient has no showed his last three consecutive appointments. Per [facility] policy he is being discharged for non-compliance. Electronically signed by: Rose Armstrong PT, DPT Please sign and return to therapist. Thank you for your referral.
== END 2022-01-05 13:35 | disposition home or self-care (01) ==
LOC: HO.PT 10:00
PROVIDERS: PCP Nurse Practitioner Family; Visit Provider Nurse Practitioner Family
DX: M25.511 Pain in right shoulder (principal)
CPT/HCPCS: 97110; 97162; 97530

== ENCOUNTER → 2021-12-28 09:54 | Outpatient (BNVA) | payer MEDICARE, SELFPAY | PROVIDERS: PCP Internal Medicine; Visit Provider Orthopaedic Surgery | DX: Z09 Encounter for follow-up examination after completed treatment for conditions other than malignant neoplasm (principal); Z87.39 Personal history of other diseases of the musculoskeletal system and connective tissue | CPT/HCPCS: 99212 ==

== ENCOUNTER 2022-01-28 14:44 | Outpatient (REF) | payer MEDICARE, SELFPAY ==
[2022-01-28 17:03] LABS: Estimated Average Glucose 166 mg/dL; Hemoglobin A1c % 7.4 %
[2022-01-28 17:28] LABS: Glucose Fasting 107 mg/dL (60-99)
== END 2022-01-28 14:45 | disposition home or self-care (01) ==
LOC: HO.LAB 14:44
PROVIDERS: PCP Internal Medicine; Visit Provider Internal Medicine
DX: E11.65 Type 2 diabetes mellitus with hyperglycemia (principal)
CPT/HCPCS: 36415; 82947; 83036

== ENCOUNTER 2022-02-11 14:55 | Outpatient (REF) | payer MEDICARE, SELFPAY ==
[2022-02-11 15:59] LABS: COVID-19 Test Negative (Negative); IDNOW Serial# 55D5AD1C
== END 2022-02-11 14:56 | disposition home or self-care (01) ==
LOC: HO.LAB 14:55
PROVIDERS: Visit Provider Internal Medicine
DX: Z20.822 Contact with and (suspected) exposure to COVID-19 (principal)
CPT/HCPCS: 87635; C9803

== ENCOUNTER 2022-02-17 10:42 | Outpatient (REF) | payer MEDICARE, SELFPAY | END 2022-02-17 10:43 | disposition home or self-care (01) | LOC: HO.LAB 10:42 | PROVIDERS: PCP Internal Medicine; Visit Provider Nurse Practitioner Family | DX: Z12.5 Encounter for screening for malignant neoplasm of prostate (principal) | CPT/HCPCS: 36415; 84153 ==

== ENCOUNTER 2023-02-24 11:20 | Outpatient (REF) | payer MEDICARE, SELFPAY ==
[2023-02-24 13:56] LABS: Prostate Specific Antigen 0.17 ng/mL (<0.05-4.0)
== END 2023-02-24 11:21 | disposition home or self-care (01) ==
LOC: HO.LAB 11:20
PROVIDERS: PCP Internal Medicine; Visit Provider Nurse Practitioner Family
DX: Z12.5 Encounter for screening for malignant neoplasm of prostate (principal)
CPT/HCPCS: 36415; 84153

== ENCOUNTER 2023-03-16 10:39 | Outpatient (REF) | payer MEDICARE, SELFPAY ==
--- NOTE | ~2023-03-16 | XR_ITS ---
EXAMINATION: XR SHOULDER, LEFT CLINICAL INFORMATION: Pain in unspecified shoulder COMPARISON: None available. TECHNIQUE: AP external rotation, Grashey, scapular Y, and axillary views of the left shoulder. FINDINGS: The bones are intact. No fracture. Glenohumeral and acromioclavicular alignment is anatomic. There is minimal narrowing of the glenohumeral joint. Small marginal osteophytes involve the acromioclavicular joint. No abnormal soft tissue calcifications. XR/XR shoulder LT min 2V IMPRESSION: Mild degenerative changes of the glenohumeral and acromioclavicular joints.
[2023-03-16 12:40] LABS: Alanine Aminotransferase 24 U/L (0-40); Albumin Level 4.2 g/dL (3.5-5.0); Alkaline Phosphatase 80 U/L (39-117); Anion Gap 14 (12-20); Aspartate Amino Transferase 18 U/L (5-37); Bilirubin Total 0.8 mg/dL (0.0-1.0); Blood Urea Nitrogen 9 mg/dL (9-16); Calcium 9.7 mg/dL (8.4-10.2); Carbon Dioxide 23 mmol/L (22-29); Chloride 107 mmol/L (96-108); Cholesterol 183 mg/dL; Estimated Glomerular Filt Rate > 60; Glucose Fasting 142 mg/dL (60-99); HDL Cholesterol 48 mg/dL; LDL Cholesterol Calculated 121 mg/dl; Potassium 3.9 mmol/L (3.3-5.1); Sodium 140 mmol/L (135-145); Total Protein 7.7 g/dL (6.5-8.0); Triglycerides 71 mg/dL
[2023-03-16 12:59] LABS: Thyroid Stimulating Hormone 0.86 uIU/mL (0.32-4.0)
== END 2023-03-16 10:40 | disposition home or self-care (01) ==
LOC: HO.XRAY 10:39
PROVIDERS: PCP Internal Medicine; Visit Provider Internal Medicine
DX: R07.9 Chest pain, unspecified (principal); M25.511 Pain in right shoulder; D64.9 Anemia, unspecified; N28.9 Disorder of kidney and ureter, unspecified; E11.69 Type 2 diabetes mellitus with other specified complication; E66.01 Morbid (severe) obesity due to excess calories; E78.5 Hyperlipidemia, unspecified
CPT/HCPCS: 36415; 73030; 80053; 80061; 82043; 84443; 85025; 93005

== ENCOUNTER 2023-04-04 11:43 | Outpatient (AMB) | payer MEDICARE, SELFPAY ==
--- NOTE | 2023-04-04 11:46 | MHC.PC.OV ---
Vital Signs 04/04/23 11:47 Height 5 ft 10 in Weight 203 lb 4 oz BMI 29.2 BP 120/70 Blood Pressure Location Lt brachial Position Sitting Pulse 78 Pulse Source Pulse Oximeter Pulse Oximetry (%) 97 Oxygen Delivery Method Room Air Intake Visit Reasons: 3 week f/u Intake Note: Patient is here to follow up on DM. 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 Accompanied by: Son Allergies metronidazole [Flagyl] Allergy (Unknown, Verified 04/04/23 11:47) Insomnia TOURNIQUET FROM IV KIT Allergy (Intermediate, Uncoded 04/04/23 11:47) HIVES Medication List - Last Reconciled 04/04/23 by Jaxon Fuentes MD acetaminophen 650 mg (2 x 325 mg) PO Q6H PRN bisacodyl 5 mg PO DAILY blood sugar diagnostic (FreeStyle Lite Strips) TO CHECK BLOOD SUGARS THREE TIMES A DAY blood-glucose meter (FreeStyle Lite Meter kit) TO CHECK BLOOD SUGARS THREE TIMES A DAY docusate sodium 100 mg PO BID finasteride (Proscar) 5 mg PO DAILY furosemide (Lasix) 40 mg PO DAILY gabapentin 100 mg PO BID lancets (FreeStyle Lancets) TO CHECK BLOOD SUGARS THREE TIMES A DAY metformin 1,000 mg PO BID omeprazole 40 mg PO BID sucralfate 1 g (10 mL) PO QIDACHS 30 days Tobacco use date assessed: 03/15/23 HPI 3 week f/u HPI Details diabetes arthritis of shoulders and bph; A1C 7.2; stable PFSH Medical History Bacteremia due to Gram-positive bacteria BPH loc w urin obs/LUTS Chronic GERD COVID-19 Diabetes type 2, controlled DVT (deep venous thrombosis) Irritable bowel syndrome Nephrolithiasis Pulmonary emboli Surgical History History of colonoscopy History of hand surgery History of kidney stones Family History Father Medical history unknown Mother Medical history unknown Social History Household Members: None Housing: Apartment Do you presently have visiting nurse or other home services: No Alcohol intake: never Patient Tobacco Use Status: Never used Tobacco e-Cigarette/Vaping Use: Never Used Second Hand Smoke Exposure: No Advance Directives Date on File: 12/17/20 service: No 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 Depression Screening Interpretation: Negative Source: Developed by Drs. Abdulaziz Hopson, Mellissa Booth, Rodríguez Singh and colleagues, with an educational mickie from [employer]. Thrive Questionnaire Date Thrive assessed: 02/24/23 Currently or been in a relationship where the following occur: no concerns reported SIXTO-7 AMB Questionnaire SIXTO-7 Date SIXTO - 7 assessed: 02/24/23 Source: Developed by Drs. Abdulaziz Hopson, Mellissa Booth, Rodríguez Singh and colleagues, with an educational mickie from [employer]. Review of Systems Const Denies chills, Denies headache(s) and Denies weight loss ENT Denies headache(s) Card Denies chest pain, Denies syncope, Denies irregular heart rhythm and Denies dyspnea Resp Denies chest congestion, Denies cough and Denies dyspnea GI Denies abdominal pain, Denies change in stool character, Denies nausea and Denies vomiting Musc Denies deformity and Denies joint swelling Neuro Denies syncope and Denies headache(s) Physical exam (Primary Care) Vital Signs: Last Vital Signs Pulse 78 04/04/23 11:47 BP 120/70 04/04/23 11:47 Pulse Ox 97 04/04/23 11:47 Oxygen Delivery Method Room Air 04/04/23 11:47 BMI result Body Mass Index 29.2 Tobacco/Smoking Status: Tobacco use Status Tobacco use date assessed 03/15/23 04/04/23 11:52 Patient Tobacco Use Status Never used Tobacco 04/04/23 11:52 e-Cigarette/Vaping Use Never Used 04/04/23 11:52 Depression Screening Interpretation: Negative Thrive Assessment: Date of Thrive Assessment Date Thrive assessed 02/24/23 04/04/23 11:52 Currently or been in a relationship where the following occur: no concerns reported Const General: cooperative, comfortable and no acute distress Resp Effort & Inspection: normal respiratory effort Auscultation: clear to auscultation bilaterally Percussion: percussion normal Cardio Jugular venous distension: no JVD Rate: regular rate Rhythm: regular rhythm GI Inspection: Yes normal to inspection Assessment and Plan Assessment & Plan (1) Type 2 diabetes mellitus with obesity: Code(s): E11.69 - Type 2 diabetes mellitus with other specified complication; E66.9 - Obesity, unspecified Plan: stable; same rx (2) BPH (benign prostatic hyperplasia): Code(s): N40.0 - Benign prostatic hyperplasia without lower urinary tract symptoms Plan: same rx; sees urol (3) Arthritis: Code(s): M19.90 - Unspecified osteoarthritis, unspecified site Plan: consider cortisone inj Orders: Orders Glucose Fasting Today R73.9 - Hyperglycemia, unspecified Hemoglobin A1c Today R73.9 - Hyperglycemia, unspecified Coding Level of Care Code Est Pt Level 4 (76800) Diagnoses Type 2 diabetes mellitus with obesity E11.69; E66.9 BPH (benign prostatic hyperplasia) N40.0 Arthritis M19.90
[2023-04-04 11:47] VITALS: BP 120/70; PULSE 78; O2SAT 97; BMI 29.2
== END 2023-04-04 12:28 | disposition home or self-care (01) ==
PROVIDERS: PCP Internal Medicine; Visit Provider Internal Medicine
DX: E11.69 Type 2 diabetes mellitus with other specified complication (principal); E66.9 Obesity, unspecified; N40.0 Benign prostatic hyperplasia without lower urinary tract symptoms; Z68.29 Body mass index [BMI] 29.0-29.9, adult; M19.90 Unspecified osteoarthritis, unspecified site
CPT/HCPCS: 99214

== ENCOUNTER 2023-04-24 11:50 | Outpatient (AMB) | payer MEDICARE, SELFPAY ==
--- NOTE | 2023-04-24 11:54 | A.OFFPC_ITS ---
Vital Signs 04/24/23 11:55 Height 5 ft 10 in Weight 200 lb 2 oz BMI 28.7 BP 110/70 Blood Pressure Location Lt brachial Position Sitting Pulse 85 Pulse Source Pulse Oximeter Pulse Oximetry (%) 96 Oxygen Delivery Method Room Air Intake Visit Reasons: 3wk f/u Intake Note: Patient is here to follow up on DM. Complaint of high blood sugar and Bp, complaint of both flank pain. 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 Accompanied by: Son Allergies metronidazole [Flagyl] Allergy (Unknown, Verified 04/24/23 11:55) Insomnia TOURNIQUET FROM IV KIT Allergy (Intermediate, Uncoded 04/24/23 11:55) HIVES Medication List - Last Reconciled 04/24/23 by Jaxon Fuentes MD acetaminophen 650 mg (2 x 325 mg) PO Q6H PRN bisacodyl 5 mg PO DAILY blood sugar diagnostic (FreeStyle Lite Strips) TO CHECK BLOOD SUGARS THREE TIMES A DAY blood-glucose meter (FreeStyle Lite Meter kit) TO CHECK BLOOD SUGARS THREE TIMES A DAY docusate sodium 100 mg PO BID finasteride (Proscar) 5 mg PO DAILY furosemide (Lasix) 40 mg PO DAILY gabapentin 100 mg PO BID lancets (FreeStyle Lancets) TO CHECK BLOOD SUGARS THREE TIMES A DAY metformin 1,000 mg PO BID omeprazole 40 mg PO BID sucralfate 1 g (10 mL) PO QIDACHS 30 days Tobacco use date assessed: 04/24/23 HPI 3wk f/u HPI Details abd and flank pain for a few weeks; history of kidney stones PFSH Medical History Bacteremia due to Gram-positive bacteria BPH loc w urin obs/LUTS Chronic GERD COVID-19 Diabetes type 2, controlled DVT (deep venous thrombosis) Irritable bowel syndrome Nephrolithiasis Pulmonary emboli Surgical History History of colonoscopy History of hand surgery History of kidney stones Family History Father Medical history unknown Mother Medical history unknown Social History Household Members: None Housing: Apartment Do you presently have visiting nurse or other home services: No Alcohol intake: never Patient Tobacco Use Status: Never used Tobacco e-Cigarette/Vaping Use: Never Used Second Hand Smoke Exposure: No Advance Directives Date on File: 12/17/20 service: No 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 Depression Screening Interpretation: Negative Source: Developed by Drs. Abdulaziz Hopson, Mellissa Booth, Rodríguez Singh and colleagues, with an educational mickie from [employer]. Thrive Questionnaire Date Thrive assessed: 02/24/23 Currently or been in a relationship where the following occur: no concerns reported SIXTO-7 AMB Questionnaire SIXTO-7 Date SIXTO - 7 assessed: 02/24/23 Source: Developed by Drs. Abdulaziz Hopson, Mellissa Booth, Rodríguez Singh and colleagues, with an educational mickie from [employer]. Review of Systems Const Denies chills, Denies headache(s) and Denies weight loss ENT Denies headache(s) Card Denies chest pain, Denies syncope, Denies irregular heart rhythm and Denies dyspnea Resp Denies chest congestion, Denies cough and Denies dyspnea GI Denies change in stool character, Denies nausea and Denies vomiting Musc Denies deformity and Denies joint swelling Neuro Denies syncope and Denies headache(s) Physical exam (Primary Care) Vital Signs: Last Vital Signs Pulse 85 04/24/23 11:55 BP 110/70 04/24/23 11:55 Pulse Ox 96 04/24/23 11:55 Oxygen Delivery Method Room Air 04/24/23 11:55 BMI result Body Mass Index 28.7 Tobacco/Smoking Status: Tobacco use Status Tobacco use date assessed 04/24/23 04/24/23 11:59 Patient Tobacco Use Status Never used Tobacco 04/24/23 11:59 e-Cigarette/Vaping Use Never Used 04/24/23 11:59 Depression Screening Interpretation: Negative Thrive Assessment: Date of Thrive Assessment Date Thrive assessed 02/24/23 04/24/23 11:59 Currently or been in a relationship where the following occur: no concerns reported Const General: cooperative, comfortable and no acute distress Resp Effort & Inspection: normal respiratory effort Auscultation: clear to auscultation bilaterally Percussion: percussion normal Cardio Jugular venous distension: no JVD Rate: regular rate Rhythm: regular rhythm GI Inspection: Yes normal to inspection Assessment and Plan Assessment & Plan (1) Flank pain: Code(s): R10.9 - Unspecified abdominal pain Plan: urine and us Orders: Orders UA and rflx microscopic Today N39.0 - Urinary tract infection, site not specified Comprehensive [facility] [place]. Panel Fast Today N28.9 - Disorder of kidney and ureter, unspecified US renal BI Today R10.9 - Unspecified abdominal pain Coding Level of Care Code Est Pt Level 3 (63040) Diagnoses Flank pain R10.9
[2023-04-24 11:55] VITALS: BP 110/70; PULSE 85; O2SAT 96; BMI 28.7
== END 2023-04-24 12:13 | disposition home or self-care (01) ==
PROVIDERS: PCP Internal Medicine; Visit Provider Internal Medicine
DX: R10.9 Unspecified abdominal pain (principal)
CPT/HCPCS: 99213

== ENCOUNTER 2023-04-24 12:20 | Outpatient (REF) | payer MEDICARE, SELFPAY ==
[2023-04-24 14:26] LABS: Appearance Urine Clear; Color Urine Yellow; Glucose Urine UA Negative (Negative); Leukocyte Esterase Urine Negative (Negative); Nitrite Urine Negative (Negative); PH 7.5 (5.0-9.0); Specific Gravity - Urine 1.015 (1.005-1.025); Urine Blood Negative (Negative); Urine Ketones Negative (Negative); Urine Protein Negative (Neg-Trace)
== END 2023-04-24 12:21 | disposition home or self-care (01) ==
LOC: HO.LAB 12:20
PROVIDERS: PCP Internal Medicine; Visit Provider Internal Medicine
DX: N39.0 Urinary tract infection, site not specified (principal)
CPT/HCPCS: 81003

== ENCOUNTER 2023-04-25 14:39 | Outpatient (REF) | payer MEDICARE, SELFPAY ==
[2023-04-25 15:26] LABS: Estimated Average Glucose 171 mg/dL; Hemoglobin A1c % 7.6 %
[2023-04-25 18:50] LABS: Alanine Aminotransferase 17 U/L (0-40); Albumin Level 4.1 g/dL (3.5-5.0); Alkaline Phosphatase 69 U/L (39-117); Anion Gap 13 (12-20); Aspartate Amino Transferase 15 U/L (5-37); Bilirubin Total 0.8 mg/dL (0.0-1.0); Blood Urea Nitrogen 12 mg/dL (9-16); Calcium 9.6 mg/dL (8.4-10.2); Carbon Dioxide 23 mmol/L (22-29); Chloride 106 mmol/L (96-108); Estimated Glomerular Filt Rate > 60; Glucose Fasting 161 mg/dL (60-99); Potassium 4.1 mmol/L (3.3-5.1); Sodium 138 mmol/L (135-145); Total Protein 7.6 g/dL (6.5-8.0)
== END 2023-04-25 14:40 | disposition home or self-care (01) ==
LOC: HO.LAB 14:39
PROVIDERS: PCP Internal Medicine; Visit Provider Internal Medicine
DX: N28.9 Disorder of kidney and ureter, unspecified (principal); R73.9 Hyperglycemia, unspecified
CPT/HCPCS: 36415; 80053; 83036

== ENCOUNTER 2023-04-28 13:17 | Outpatient (REF) | payer MEDICARE, OTHER, SELFPAY ==
--- NOTE | ~2023-04-28 | US_ITS ---
EXAMINATION: US RETROPERITONEAL LIMITED (RENAL ONLY) CLINICAL INFORMATION: Unspecified abdominal pain. COMPARISON: Bilateral renal ultrasound dated 02/10/2021. CT abdomen and pelvis with contrast dated 12/21/2020. Limited retroperitoneal ultrasound dated 08/21/2019. KUB dated 01/18/2019 and 04/30/2014. TECHNIQUE: Real-time imaging of the kidneys. Limited visualization due to bowel gas and body habitus. FINDINGS: RIGHT KIDNEY: 11.7 x 5.3 x 5.4 cm (SAG x AP x TRV). Prominent pyramids midpole right kidney. No obstructing renal calculi. Limited visualization. LEFT KIDNEY: 12.8 x 4.8 x 5.7 cm (SAG x AP x TRV). There is a 0.5 cm midpole calculus. A 4.0 x 2.5 x 3.2 cm complex heterogeneous complex area lower pole left kidney measured 3.1 x 2.1 x 3.0 cm on 02/10/2021 and 1.8 x 1.6 x 2.0 cm on 08/21/2019 and has increased in size and complexity over time. CT scan recommended for further evaluation. US/US renal BI IMPRESSION: 1. Prominent pyramids midpole right kidney. No obstructing renal calculi. 2. There is a 0.5 cm left renal midpole calculus. No hydronephrosis. 3. There is a 4.0 cm complex heterogeneous complex area lower pole left kidney measured 3.1 x 2.1 x 3.0 cm on 02/10/2021 and 1.8 x 1.6 x 2.0 cm on 08/21/2019 and has increased in size and complexity over time. CT scan recommended for further evaluation.
== END 2023-04-28 13:18 | disposition home or self-care (01) ==
LOC: HO.US 13:17
PROVIDERS: PCP Internal Medicine; Visit Provider Internal Medicine
DX: R10.9 Unspecified abdominal pain (principal)
CPT/HCPCS: 76775

== ENCOUNTER 2023-05-05 08:59 | Outpatient (AMB) | payer MEDICARE, SELFPAY ==
[2023-05-05 09:07] VITALS: BP 140/80; BMI 29.1
--- NOTE | 2023-05-05 09:07 | MHC.OFFVIS ---
Intake Vital Signs 05/05/23 09:07 Height 5 ft 10 in Weight 202 lb 13.204 oz BMI 29.1 BP 140/80 H Blood Pressure Location Lt brachial Position Sitting [facility] old pt Allergies metronidazole [Flagyl] Allergy (Unknown, Verified 05/05/23 09:24) Insomnia TOURNIQUET FROM IV KIT Allergy (Intermediate, Uncoded 04/24/23 11:55) HIVES Medication List - Last Reconciled 05/05/23 by WEN Paul acetaminophen 650 mg (2 x 325 mg) PO Q6H PRN bisacodyl 5 mg PO DAILY blood sugar diagnostic (FreeStyle Lite Strips) TO CHECK BLOOD SUGARS THREE TIMES A DAY blood-glucose meter (FreeStyle Lite Meter kit) TO CHECK BLOOD SUGARS THREE TIMES A DAY finasteride (Proscar) 5 mg PO DAILY gabapentin 100 mg PO BID lancets (FreeStyle Lancets) TO CHECK BLOOD SUGARS THREE TIMES A DAY metformin 1,000 mg PO BID omeprazole 40 mg PO BID sucralfate 1 g (10 mL) PO QIDACHS 30 days HPI [facility]/ old pt HPI Details Mariposa is a 73 yo male with PMH of DM, HTN, mild aortic stenosis, minimal nonobstructive CAD on cath 2018 who presents for cardiology evaluation. His last prior visit to your office was 06/05/2019. He was seen in hospital consultation 12/28/20 after having a brief episodes of SVT on telemetry monitoring and was started on Metoprolol. Today he states that about 2 months ago he was awoken with chest discomfort across his chest and shoulders with diaphoresis lasting about 15 minutes and gradually improving. Since then he has had 2 more episodes again that of a woken him from sleep however less intense and lasting approximately 10 minutes each. He has not had any daytime symptoms. No exertional chest discomfort, shortness of breath, palpitations. He does admit to eating spicy foods and has a history of GERD however tells me he has not had any heartburn symptoms recently. 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 No presyncope, syncope, falls. No PND, orthopnea or edema. Takes meds as directed. PFSH Medical History (Updated 05/05/23 @ 11:07 by Yaquelin Palm NP-C) Aortic stenosis Bacteremia due to Gram-positive bacteria BPH loc w urin obs/LUTS Chronic GERD COVID-19 Diabetes type 2, controlled DVT (deep venous thrombosis) Irritable bowel syndrome Nephrolithiasis Pulmonary emboli Surgical History History of colonoscopy History of hand surgery History of kidney stones S/P cardiac cath Family History Father Medical history unknown Mother Medical history unknown Social History Household Members: None Housing: Apartment Do you presently have visiting nurse or other home services: No Alcohol intake: never Patient Tobacco Use Status: Never used Tobacco e-Cigarette/Vaping Use: Never Used Second Hand Smoke Exposure: No Advance Directives Date on File: 12/17/20 service: No Current occupational status: employed 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 Current occupational exposures/hazards: No Cognitive needs: No Hearing needs: No Vision needs: No Review of Systems Const All systems reviewed & are unremarkable except as noted in HPI and below ENT Denies dizziness Card Reports chest pain, Reports chest pain at rest, Denies chest pain with activity, Denies rapid heart rate, Denies pedal edema, Denies edema, Denies leg edema, Denies lightheadedness, Denies palpitations, Denies dyspnea, Denies dyspnea on exertion and Denies orthopnea Resp Denies cough, Denies dyspnea and Denies dyspnea on exertion GI Denies hematochezia and Denies change in stool character Musc Denies abnormal gait, Denies limited range of motion, Denies muscle cramps, Denies muscle weakness, Denies numbness, Denies radiating pain into limb, Denies stiffness and Denies tingling Neuro Denies abnormal gait, Denies dizziness, Denies numbness and Denies tingling Endo Denies palpitations Physical Exam Vital Signs: Last Vital Signs BP 140/80 H 05/05/23 09:07 BMI result Body Mass Index 29.1 Const General: cooperative, healthy appearing, comfortable and no acute distress Orientation/consciousness: patient oriented x3 Neck Neck: Yes normal visual inspection and Yes no JVD Resp Effort & Inspection: normal respiratory effort Auscultation: clear to auscultation bilaterally, no crackles, no rales, no rhonchi and no wheezes Cardio Jugular venous distension: no JVD Rate: regular rate Rhythm: regular rhythm Heart sounds: S2 normal heart sound present, Murmur heart sound present (systolic, 3/6 left sternal border, second heart sound audible) and no rubs Peripheral pulses: Peripheral pulses 2+ throughout Neuro General: patient oriented x3 Extrem General: Yes normal to inspection, No no pedal edema and No calf tenderness Psych Appearance: grossly normal Mental Status: mental status grossly normal Speech and movement: Normal speech and movement present Office Procedures EKG Details: Today, read by me, sinus rhythm first-degree AV block, rate 76, QTC 425 millisecond [id number], Complete Assessment & Plan Assessment & Plan (1) Chest discomfort: Code(s): R07.89 - Other chest pain Plan: Patient describes 3 recent episodes of discomfort across his chest and into his shoulders with diaphoresis that has woken him from sleep. Longest episode lasted 15 minutes with gradual resolution. Other to episodes were 10 minutes with gradual resolution. He has had no daytime symptoms. His a history of GERD and does take his omeprazole. EKG done today showing sinus rhythm with first-degree AV block, no Q-waves noted, rate 76. Known history of mild nonobstructive CAD. Cardiac risks of diabetes, age. He is not on statin for unclear reason. Symptoms sounds more like esophageal spasm/GERD however need to evaluate for ischemia. Will update echocardiogram to assess for EF, wall motion. Will check a nuclear stress test to evaluate for any ischemia. He says he can walk on the treadmill however if unable, pharmacological study can be performed. He does have a history of aortic stenosis and his echocardiogram should be done prior to his stress test to assess severity. Signs and symptoms of angina reviewed with him. Cardiology follow-up when test results are available. Emergency care if needed for recurrent symptoms. (2) S/P cardiac cath: Comment: 05/24/2019 LAD minimal luminal irregularities. Other vessels normal Code(s): Z98.890 - Other specified postprocedural states (3) History of paroxysmal supraventricular tachycardia: Code(s): Z86.79 - Personal history of other diseases of the circulatory system Plan: Episode of SVT during hospital admission for 2020. At that time he was seen in Cardiology consult. He was started on metoprolol however his current med list does not include metoprolol. He is not reported any concerning heart palpitations. (4) Aortic stenosis: Code(s): I35.0 - Nonrheumatic aortic (valve) stenosis Plan: History of mild aortic stenosis as seen on echocardiogram 12/07/2020. He does have moderate sounding systolic murmur. Second had sound is audible so not likely to be severe. Will update echocardiogram to assess severity of . Orders: Orders CA stress test Today R07.89 - Other chest pain, Z98.890 - Other specified postprocedural states CA echo transthoracic complete Today I35.0 - Nonrheumatic aortic (valve) stenosis, R07.89 - Other chest pain NM cardiolite stress test Today R07.89 - Other chest pain Coding Level of Care Code Est Pt Level 4 (31014) Diagnoses Chest discomfort R07.89 S/P cardiac cath Z98.890 History of paroxysmal supraventricular tachycardia Z86.79 Aortic stenosis I35.0 CPT Codes EKG - CPT: [id number], Complete ([id number]) Time Spent (min) 26 Comment Chart review, document, interview, assess
== END 2023-05-05 09:44 | disposition home or self-care (01) ==
PROVIDERS: PCP Internal Medicine; Referring Provider Internal Medicine; Visit Provider Nurse Practitioner Family
DX: R07.89 Other chest pain (principal); Z98.890 Other specified postprocedural states; Z86.79 Personal history of other diseases of the circulatory system; I35.0 Nonrheumatic aortic (valve) stenosis
CPT/HCPCS: 93010; 99214

== ENCOUNTER → 2023-05-05 08:59 | Outpatient (BNVA) | payer MEDICARE, OTHER, SELFPAY | PROVIDERS: PCP Internal Medicine; Referring Provider Internal Medicine; Visit Provider Nurse Practitioner Family | DX: R07.89 Other chest pain (principal); I35.0 Nonrheumatic aortic (valve) stenosis; Z86.79 Personal history of other diseases of the circulatory system | CPT/HCPCS: 93005; 99212 ==

== ENCOUNTER 2023-05-12 09:07 | Outpatient (REF) | payer MEDICARE, OTHER, SELFPAY ==
[2023-05-12 11:22] LABS: Creatinine Urine 125.78 mg/dL; Microalbum/Creatinine Ratio Ur 8.7 ug/mg cr (<30)
[2023-05-12 11:35] LABS: Anion Gap 14 (12-20); Blood Urea Nitrogen 12 mg/dL (9-16); Calcium 9.4 mg/dL (8.4-10.2); Carbon Dioxide 20 mmol/L (22-29); Chloride 108 mmol/L (96-108); Estimated Glomerular Filt Rate > 60; Glucose Fasting 137 mg/dL (60-99); Glucose Random 137 mg/dL (60-115); Potassium 3.9 mmol/L (3.3-5.1); Sodium 138 mmol/L (135-145)
== END 2023-05-12 09:08 | disposition home or self-care (01) ==
LOC: HO.LAB 09:07
PROVIDERS: PCP Internal Medicine; Visit Provider Internal Medicine
DX: E11.65 Type 2 diabetes mellitus with hyperglycemia (principal); E66.01 Morbid (severe) obesity due to excess calories
CPT/HCPCS: 36415; 80048; 82043; 82570

== ENCOUNTER 2023-05-17 11:35 | Outpatient (AMB) | payer MEDICARE, SELFPAY ==
[2023-05-17 11:38] VITALS: BP 132/92; PULSE 81; O2SAT 98; BMI 28.8
--- NOTE | 2023-05-17 11:38 | MHC.PC.OV ---
Vital Signs 05/17/23 11:38 Height 5 ft 10 in Weight 201 lb BMI 28.8 BP 132/92 H Blood Pressure Location Lt brachial Position Sitting Pulse 81 Pulse Source Pulse Oximeter Pulse Oximetry (%) 98 Oxygen Delivery Method Room Air Intake Visit Reasons: 3 week f/u Avionics Safety Inspector: Present Accompanied by: Child Allergies metronidazole [Flagyl] Allergy (Unknown, Verified 05/17/23 11:39) Insomnia TOURNIQUET FROM IV KIT Allergy (Intermediate, Uncoded 05/17/23 11:39) HIVES Medication List - Last Reconciled 05/19/23 by Jaxon Fuentes MD acetaminophen 650 mg (2 x 325 mg) PO Q6H PRN bisacodyl 5 mg PO DAILY blood sugar diagnostic (FreeStyle Lite Strips) TO CHECK BLOOD SUGARS THREE TIMES A DAY blood-glucose meter (FreeStyle Lite Meter kit) TO CHECK BLOOD SUGARS THREE TIMES A DAY finasteride (Proscar) 5 mg PO DAILY gabapentin 100 mg PO BID lancets (FreeStyle Lancets) TO CHECK BLOOD SUGARS THREE TIMES A DAY metformin 1,000 mg PO BID omeprazole 40 mg PO BID sucralfate 1 g (10 mL) PO QIDACHS 30 days triamcinolone acetonide 0.5% 1 appl topical TID Tobacco use date assessed: 04/24/23 Fall risk assessment: No Falls in past year Last assessed Fall Risk: 05/17/23 Dental Screening Dental Screen Date: 05/17/23 Did you have a dental visit in the last 12 months?: No Did you have a dental problem in the last 6 months where you did not have access to dental care?: No Was dental information given to patient?: Patient has dentist HPI 3 week f/u HPI Details DM GERD and obesity; improved on rx PFSH Medical History Aortic stenosis Bacteremia due to Gram-positive bacteria BPH loc w urin obs/LUTS Chronic GERD COVID-19 Diabetes type 2, controlled DVT (deep venous thrombosis) Irritable bowel syndrome Nephrolithiasis Pulmonary emboli Surgical History History of colonoscopy History of hand surgery History of kidney stones S/P cardiac cath Family History Father Medical history unknown Mother Medical history unknown Social History Household Members: None Housing: Apartment Do you presently have visiting nurse or other home services: No Alcohol intake: never Patient Tobacco Use Status: Never used Tobacco e-Cigarette/Vaping Use: Never Used Second Hand Smoke Exposure: No Advance Directives Date on File: 12/17/20 service: No 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 1. Little interest or pleasure in doing things: not at all 2. Feeling down, depressed, or hopeless: not at all 3. Trouble falling or staying asleep, or sleeping too much: not at all 4. Feeling tired or having little energy: not at all 5. Poor appetite or overeating: not at all 6. Feeling bad about yourself - or that you are a failure or have let yourself or your family down: not at all 7. Trouble concentrating on things, such as reading the newspaper or watching television: not at all 8. Moving or speaking so slowly that other people could have noticed. Or the opposite - being so fidgety or restless that you have been moving around a lot more than usual: not at all 9. Thoughts that you would be better off or of hurting yourself in some way: not at all Total score: 0 Depression Screening Interpretation: Negative 28468 - PHQ-9 Billing: Yes Source: Developed by Drs. Abdulaziz Hopson, Mellissa Booth, Rodríguez Singh and colleagues, with an educational mickie from [employer]. Thrive Questionnaire Date Thrive assessed: 02/24/23 AUDIT C Alcohol Use Questionnaire (AUDIT-C) 1. How often do you have a drink containing alcohol?: Never 3. How often do you have six or more drinks on one occasion?: Never Total Score: 0 Score Reviewed/Action Taken: Yes SIXTO-7 AMB Questionnaire SIXTO-7 Date SIXTO - 7 assessed: 02/24/23 Source: Developed by Drs. Abdulaziz Hopson, Mellissa Booth, Rodríguez Singh and colleagues, with an educational mickie from [employer]. Review of Systems Const Denies chills, Denies headache(s) and Denies weight loss ENT Denies headache(s) Card Denies chest pain, Denies syncope, Denies irregular heart rhythm and Denies dyspnea Resp Denies chest congestion, Denies cough and Denies dyspnea GI Denies abdominal pain, Denies change in stool character, Denies nausea and Denies vomiting Musc Denies deformity and Denies joint swelling Neuro Denies syncope and Denies headache(s) Physical exam (Primary Care) Vital Signs: Last Vital Signs Pulse 81 05/17/23 11:38 BP 132/92 H 05/17/23 11:38 Pulse Ox 98 05/17/23 11:38 Oxygen Delivery Method Room Air 05/17/23 11:38 BMI result Body Mass Index 28.8 Tobacco/Smoking Status: Tobacco use Status Tobacco use date assessed 04/24/23 05/17/23 11:45 Patient Tobacco Use Status Never used Tobacco 05/17/23 11:45 e-Cigarette/Vaping Use Never Used 05/17/23 11:45 PHQ-9: PHQ-9 Score PHQ-9: Total score 0 05/17/23 11:45 Depression Screening Interpretation: Negative Thrive Assessment: Date of Thrive Assessment Date Thrive assessed 02/24/23 05/17/23 11:45 Const General: cooperative, comfortable, no acute distress and alert Neck Neck: Yes no lymphadenopathy Thyroid: Thyroid normal Resp Effort & Inspection: normal respiratory effort Auscultation: clear to auscultation bilaterally Percussion: percussion normal Cardio Jugular venous distension: no JVD Palpation: normal PMI Rate: regular rate Rhythm: regular rhythm Heart sounds: S1 normal heart sound present and S2 normal heart sound present GI Inspection: Yes normal to inspection Palpation (GI): No hepatosplenomegaly present Skin General skin exam: no rashes or lesions noted Extrem General: Yes no clubbing, cyanosis or edema Assessment and Plan Assessment & Plan (1) Type 2 diabetes mellitus with obesity: Code(s): E11.69 - Type 2 diabetes mellitus with other specified complication; E66.9 - Obesity, unspecified Plan: stable; cont same rx (2) Obesity: Code(s): E66.9 - Obesity, unspecified Plan: diet and exercise (3) Chronic GERD: Code(s): K21.9 - Gastro-esophageal reflux disease without esophagitis Plan: stable; same rx Orders: Referrals Ophthalmology Referral E11.69 - Type 2 diabetes mellitus with other specified complication, E66.9 - Obesity, unspecified Ophthalmology Referral E11.69 - Type 2 diabetes mellitus with other specified complication, E66.9 - Obesity, unspecified Medications: New triamcinolone acetonide 0.5% 1 appl topical TID 15 grams 3RF Coding Level of Care Code Est Pt Level 4 (90392) Diagnoses Type 2 diabetes mellitus with obesity E11.69; E66.9 Obesity E66.9 Chronic GERD K21.9
== END 2023-05-17 12:07 | disposition home or self-care (01) ==
PROVIDERS: PCP Internal Medicine; Visit Provider Internal Medicine
DX: E11.69 Type 2 diabetes mellitus with other specified complication (principal); E66.9 Obesity, unspecified; Z68.28 Body mass index [BMI] 28.0-28.9, adult; K21.9 Gastro-esophageal reflux disease without esophagitis
CPT/HCPCS: 99214

== ENCOUNTER → 2023-06-02 08:47 | Outpatient (REF) | payer MEDICARE, OTHER, SELFPAY ==
--- NOTE | ~2023-06-02 | NM_ITS ---
Lexiscan Myocardial perfusion study Indication: Chest discomfort, assess for coronary disease and ischemia Technique: The patient was brought in for a Lexiscan perfusion study on 06/08/2023 and was injected 0.4 mg of Lexiscan intravenously. Within a minute of this injection 30 mCi of sestamibi was given intravenously. Images were obtained using the SPECT gamma camera interlaced with the gating device. Images were obtained in supine position. Resting perfusion study was performed on 06/02/2023. Patient was administered 30 mCi of sestamibi intravenously at rest. Images were then obtained in supine position. Images were processed with the software and compared side to side in short axis, horizontal long axis and vertical long axis views. Total DLP 94mGy-cm. Findings: Raw acquisition reviewed. Subdiaphragmatic tracer uptake noted. The stress perfusion study showed no significant perfusion abnormality. Both uncorrected and CT attenuation corrected images were reviewed. The gated study shows normal LV systolic function with calculated LVEF of 69%. LV cavity is normal in size. The gated study shows normal wall thickening and contraction of segments. Resting study shows no significant perfusion abnormality. Diminished tracer uptake along the inferior wall, that improves with CT attenuation correction. Gating at rest reveals normal wall motion with ejection fraction at 67%. The findings are consistent with no clear reversible or fixed perfusion abnormality. NM/NM cardiolite stress test Impression: 1. Myocardial perfusion imaging study shows probably normal myocardial perfusion. No definitive evidence of any ischemia or infarction. 2. Gated LVEF is 69% during stress and 67% during rest. 3. Transient ischemic dilatation not present. EKG component of the test reported separately.
--- NOTE | 2023-06-02 08:49 | CA_ITS ---
Acquisition Time: 2023-06-08 08:30:43 Total Exercise Time: 00:00:12 Test Indications: Chest Pain Medications: Protocol: MALLY Max HR: 097 BPM 65% of Pred: 147 BPM Max BP: 142/076 mmHG Max Work Load: 1.1 METS Exercise stress test exercise 12 sec achieving 46% MPHR and test was terminated due to safety concern and patient couldnt walk aquetely on treadmill. Test was changed to pharmacological stress test. Pharmacoloigcal stress test with Lexiscan injection while sitting and kicking his legs, without anginal symptoms, with isolated PACs and PVCs, with normotensive response to injection, with nondiagnositic EKGs. Aminophylline 75mg IVP given to reverse Lexiscan. Nucleae images pending. Test reviewed with Dr. Nicole. Referred By: Yaquelin Palm Overread By: Jaclyn Arenas
== END ==
LOC: HO.CARD 08:47
PROVIDERS: PCP Internal Medicine; Visit Provider Nurse Practitioner Family
DX: R07.89 Other chest pain (principal); Z98.890 Other specified postprocedural states
CPT/HCPCS: 78452; 93017; A9500

== ENCOUNTER → 2023-06-02 09:18 | Outpatient (BNV) | payer MEDICARE, SELFPAY | PROVIDERS: PCP Internal Medicine; Visit Provider Internal Medicine | DX: R07.89 Other chest pain (principal) | CPT/HCPCS: 78452; 93016; 93018 ==

== ENCOUNTER → 2023-06-07 09:58 | Outpatient (REF) | payer MEDICARE, OTHER, SELFPAY ==
--- NOTE | 2023-06-07 10:04 | CA_ITS ---
Transthoracic Echocardiogram Patient (Last, First, Middle): Mariposa Davis A Gender: Male Date of : 1950 Age: 73 Procedure Date: 06/07/2023 Procedure Type: Transthoracic Echocardiogram Location: OP Height: 172.72 cm Weight: 95.26 kg BSA: 2.09 m2 Heart Rate: bpm BP: 150 / 90 mmHg Doctor Of Nurse Anesthesia: TO Referring MD: Yaquelin Palm DIGITAL MEDIA BUYER-C Pin Game Machine Inspector: Milton Nicole MD Symptoms: R07.89 - Other chest pain Study Quality: Fair/Contrast ECG Rhythm: Sinus Conclusions: - 1. Normal LV ejection fraction of 60 65% with impaired relaxation filling pattern 2. At worst moderate aortic stenosis 3. Upper limits of normal ascending aortic size 4. Normal RV systolic pressure 5. No gross pericardial effusion Findings Procedure Information Contrast agent, definity, is being given per protocol without apparent complications. Left Ventricle Normal left ventricular size, thickness, and systolic function. The visually estimated ejection fraction is between 60-65%. Spectral Doppler is indicative of an impaired relaxation filling pattern. E/E prime ratio is between 8 and 15 consistent with indeterminate filling pressures. Right Ventricle Normal right ventricular cavity size and systolic function. Atria The left atrium is normal in size. There is lipomatous hypertrophy of the interatrial septum. There is no evidence of interatrial shunt. The right atrium is normal in size. Aortic Valve The aortic valve was not well visualized. There is mild calcification of the aortic valve. There is moderate aortic valve stenosis. There is no aortic valve regurgitation. Mitral Valve Likely normal mitral valve structure and function. There is trace mitral valve regurgitation. There is no mitral valve stenosis. Pulmonic Valve The pulmonic valve was not well visualized. Tricuspid Valve Likely normal tricuspid valve structure and function. There is trace tricuspid valve regurgitation. The right ventricular systolic pressure is normal. The right ventricular systolic pressure is 13 mmHg. Normal right atrial pressure. Great Vessels The pulmonary artery was not well visualized. Venous The inferior vena cava is normal in size and collapses greater than 50% with inspiration. Pericardium/Pleural There is no evidence of pericardial effusion. Prior Study Comparison Changes noted compared to prior study dated: 12/30/2020. Aortic stenosis is in the moderate severity range Measurements 2D Linear Measurements IVSd: 1.40 0.6-0.9/0.6-1.0 cm LVIDd: 4.20 3.9-5.3/4.2-5.9 cm LVIDd Index: 2.01 2.4-3.2/2.2-3.1 cm/m2 LVIDs: 2.90 2.0-3.6 cm LVPWd: 0.80 0.7-1.1 cm LA Diam: 4.00 2.7-3.8/3.0-4.0 cm LAIDs Index: 1.91 1.5-2.3 cm/m2 LV Mass: 195.58 67-162/88-224 g LV Mass Index: 93.58 43-95/49-115 g/m2 LVOT Diam: 2.20 3.0+(-)1.3 cm 2D Systolic Function EF 4C: 64.60 >55% EF 2C: 63.30 >55% EF BiP: 65.60 >55% Mitral Valve MV Pk E: 0.91 MV PK A: 1.33 MV Decel Time: 210.00 E/A: 0.70 E'Lateral: 8.16 E'Medial: 5.00 E/E' Med: 18.20 E/E' Lat: 11.20 PHT: 62.00 MVA PHT: 3.55 Decel [place]: 4.34 Aortic Valve AoV Pk Baron: 3.02 AoV Mn Baron: 2.19 AoV VTI: 0.74 AoV Pk Grad: 36.00 Aov Mn Grad: 21.00 CURRY Cont.VTI: 0.92 LVOT LVOT Pk Baron: 0.87 LVOT Mn Baron: 0.60 LVOT VTI: 0.18 LVOT Pk Grad: 3.00 LVOT Mn Grad: 2.00 LVOT Diam: 2.20 LVOT Area: 3.80 Diastolic Function MV Pk E: 0.91 MV Pk A: 1.33 E/A: 0.70 E'Medial: 5.00 E/E' Med: 18.20 E' Laterial: 8.16 E/E' Lat: 11.20 Right Ventricle TAPSE (mm): 19.10 TVS' Baron: 12.50 Tricuspid Valve TR Pk Baron: 1.61 TR Pk Grad: 10.00 RA Press: 3.00 RVSP: 13.00 Great Vessels Aorta Sinus of Valsalva: 3.40 2.0-3.[address] [place]: 2.80 1.7-3.4 cm Ao Asc: 3.60 2.1-3.4 cm Updated in Other Vendor System with Status of Final Milton Nicole MD electronically signed on 06/07/2023 3:25:53 PM with status of Final
== END ==
LOC: HO.CARD 09:58
PROVIDERS: PCP Internal Medicine; Visit Provider Nurse Practitioner Family
DX: R07.89 Other chest pain (principal); I35.0 Nonrheumatic aortic (valve) stenosis
CPT/HCPCS: 93306; J0280; J2785; Q9957

== ENCOUNTER → 2023-06-07 10:04 | Outpatient (BNV) | payer MEDICARE, SELFPAY | PROVIDERS: PCP Internal Medicine; Visit Provider Internal Medicine Cardiovascular Disease | DX: I35.0 Nonrheumatic aortic (valve) stenosis (principal) | CPT/HCPCS: 93306 ==

== ENCOUNTER 2023-06-20 13:57 | Outpatient (AMB) | payer MEDICARE, SELFPAY ==
[2023-06-20 14:16] VITALS: BP 134/92; BMI 28.4
--- NOTE | 2023-06-20 14:16 | MHC.OFFVIS ---
Intake Vital Signs 06/20/23 14:16 Height 5 ft 10 in Weight 197 lb 15.602 oz BMI 28.4 BP 134/92 H Blood Pressure Location Lt brachial Position Sitting Intake Visit Reasons: follow up echo Intake Note: f/u echo Tap Puller Required: No Allergies metronidazole [Flagyl] Allergy (Unknown, Verified 06/20/23 14:21) Insomnia TOURNIQUET FROM IV KIT Allergy (Intermediate, Uncoded 05/17/23 11:39) HIVES Medication List - Last Reconciled 06/20/23 by Yaquelin Palm PRODUCTION SUPPORT CONSULTANT-C acetaminophen 650 mg (2 x 325 mg) PO Q6H PRN bisacodyl 5 mg PO DAILY blood sugar diagnostic (FreeStyle Lite Strips) TO CHECK BLOOD SUGARS THREE TIMES A DAY blood-glucose meter (FreeStyle Lite Meter kit) TO CHECK BLOOD SUGARS THREE TIMES A DAY finasteride (Proscar) 5 mg PO DAILY gabapentin 100 mg PO BID lancets (FreeStyle Lancets) TO CHECK BLOOD SUGARS THREE TIMES A DAY metformin 1,000 mg PO BID omeprazole 40 mg PO BID triamcinolone acetonide 0.5% 1 appl topical TID HPI follow up echo HPI Details Mariposa is a 73 yo male with PMH of DM, HTN, mild aortic stenosis, minimal nonobstructive CAD on cath 2018, SVT episode for 2020 and was started on metoprolol who was recently seen for report of chest tightness. He underwent a nuclear stress test and echocardiogram and now presents for follow-up. Today he reports that since his last visit he has had at least 1 episode of mild tightness in his chest that wakes him up. He has not had any daytime symptoms. He denies shortness of breath, palpitations, presyncope, syncope, falls, PND, orthopnea or edema. He admits to eating spicy foods and has a history of GERD but says he has no recent heartburn symptoms. 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 [facility] Medical History Aortic stenosis Pulmonary emboli DVT (deep venous thrombosis) Bacteremia due to Gram-positive bacteria COVID-19 Diabetes type 2, controlled Chronic GERD Nephrolithiasis BPH loc w urin obs/LUTS Irritable bowel syndrome Surgical History S/P cardiac cath History of colonoscopy History of hand surgery History of kidney stones Family History Father Medical history unknown Mother Medical history unknown Social History Household Members: None Housing: Apartment Do you presently have visiting nurse or other home services: No Alcohol intake: never Patient Tobacco Use Status: Never used Tobacco e-Cigarette/Vaping Use: Never Used Second Hand Smoke Exposure: No Advance Directives Date on File: 12/17/20 service: No Current occupational status: employed 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 Current occupational exposures/hazards: No Cognitive needs: No Hearing needs: No Vision needs: No Review of Systems Const All systems reviewed & are unremarkable except as noted in HPI and below ENT Denies dizziness Card Denies chest pain, Denies chest pain at rest, Denies chest pain with activity, Denies rapid heart rate, Denies pedal edema, Denies edema, Denies leg edema, Denies lightheadedness, Denies palpitations, Denies dyspnea, Denies dyspnea on exertion and Denies orthopnea Resp Denies cough, Denies dyspnea and Denies dyspnea on exertion GI Denies hematochezia and Denies change in stool character Musc Denies abnormal gait, Denies limited range of motion, Denies muscle cramps, Denies muscle weakness, Denies numbness, Denies radiating pain into limb, Denies stiffness and Denies tingling Neuro Denies abnormal gait, Denies dizziness, Denies numbness and Denies tingling Endo Denies palpitations Physical Exam Vital Signs: Last Vital Signs BP 134/92 H 06/20/23 14:16 BMI result Body Mass Index 28.4 Assessment & Plan Assessment & Plan (1) Chest discomfort: Code(s): R07.89 - Other chest pain Plan: Patient describes 3-4 recent episodes of discomfort across his chest and into his shoulders with diaphoresis that has woken him from sleep. Longest episode lasted 15 minutes with gradual resolution. Other to episodes were 10 minutes with gradual resolution. He has had no daytime or activity induced symptoms. His a history of GERD and does take his omeprazole. EKG done last visit showing sinus rhythm with first-degree AV block, no Q-waves noted, rate 76. Known history of mild nonobstructive CAD. Cardiac risks of diabetes, age. He is not on statin for unclear reason. Symptoms sounds more like esophageal spasm/GERD however need to evaluate for ischemia. Echocardiogram done 06/07/2023 showed EF 60-65%, impaired relaxation, no reported regional wall motion abnormality, moderate aortic stenosis. A nuclear stress test done 06/08/2023 showed normal myocardial perfusion imaging. A cardiac catheterization had been done on him 05/24/2019 showing only minimal irregularities in the LAD. Review test results with him. Instructed to further discuss with his GI provider or PCP to assess noncardiac causes of chest discomfort. If he continues to have symptoms then will consider a CTA of the coronary arteries. Signs and symptoms of angina reviewed with him. Emergency care if needed for recurrent symptoms. (2) S/P cardiac cath: Comment: 05/24/2019 LAD minimal luminal irregularities. Other vessels normal Code(s): Z98.890 - Other specified postprocedural states (3) History of paroxysmal supraventricular tachycardia: Code(s): Z86.79 - Personal history of other diseases of the circulatory system Plan: Episode of SVT during hospital admission for 2020. At that time he was seen in Cardiology consult. He was started on metoprolol however his current med list does not include metoprolol. He is not reported any concerning heart palpitations. (4) Aortic stenosis: Code(s): I35.0 - Nonrheumatic aortic (valve) stenosis Qualifiers: Cardiac valve disease etiology: nonrheumatic Qualified Code(s): I35.0 - Nonrheumatic aortic (valve) stenosis Plan: History of mild aortic stenosis as seen on echocardiogram 12/07/2020. He does have moderate sounding systolic murmur. Echocardiogram recently done showing moderate aortic stenosis, mean gradient 21 mmHg, aortic valve area 0.92 centimeter sq. Will plan a repeat echo prior to next visit in 9 months. Orders: Orders CA echo transthoracic complete 9 Months I35.0 - Nonrheumatic aortic (valve) stenosis Coding Level of Care Code Est Pt Level 4 (04775) Diagnoses Chest discomfort R07.89 S/P cardiac cath Z98.890 History of paroxysmal supraventricular tachycardia Z86.79 Nonrheumatic aortic valve stenosis I35.0 Cardiac valve disease etiology: nonrheumatic Time Spent (min) 24
== END 2023-06-20 14:54 | disposition home or self-care (01) ==
PROVIDERS: PCP Internal Medicine; Visit Provider Nurse Practitioner Family
DX: R07.89 Other chest pain (principal); Z98.890 Other specified postprocedural states; Z86.79 Personal history of other diseases of the circulatory system; I35.0 Nonrheumatic aortic (valve) stenosis
CPT/HCPCS: 99214

== ENCOUNTER → 2023-06-20 13:57 | Outpatient (BNVA) | payer MEDICARE, OTHER, SELFPAY | PROVIDERS: PCP Internal Medicine; Visit Provider Nurse Practitioner Family | DX: R07.89 Other chest pain (principal); I35.0 Nonrheumatic aortic (valve) stenosis; Z86.79 Personal history of other diseases of the circulatory system; Z98.890 Other specified postprocedural states | CPT/HCPCS: 99212 ==

== ENCOUNTER 2023-07-20 13:59 | Outpatient (AMB) | payer MEDICARE, SELFPAY ==
[2023-07-20 14:01] VITALS: BP 144/90; PULSE 68; O2SAT 99; BMI 28.4
--- NOTE | 2023-07-20 14:01 | A.OFFPC_ITS ---
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 Accompanied by: Son Allergies metronidazole [Flagyl] Allergy (Unknown, Verified 07/20/23 14:01) Insomnia TOURNIQUET FROM IV KIT Allergy (Intermediate, Uncoded 07/20/23 14:01) HIVES Medication List - Last Reconciled 07/21/23 by Jaxon Fuentes MD acetaminophen 650 mg (2 x 325 mg) PO Q6H PRN bisacodyl 5 mg PO DAILY blood sugar diagnostic (FreeStyle Lite Strips) TO CHECK BLOOD SUGARS THREE TIMES A DAY blood-glucose meter (FreeStyle Lite Meter kit) TO CHECK BLOOD SUGARS THREE TIMES A DAY finasteride (Proscar) 5 mg PO DAILY gabapentin 100 mg PO BID lancets (FreeStyle Lancets) TO CHECK BLOOD SUGARS THREE TIMES A DAY metformin 1,000 mg PO BID omeprazole 40 mg PO BID tizanidine 4 mg PO Q8H PRN triamcinolone acetonide 0.5% 1 appl topical TID Tobacco use date assessed: 04/24/23 Fall risk assessment: No Falls in past year Last assessed Fall Risk: 07/20/23 Dental Screening Dental Screen Date: 07/20/23 Did you have a dental visit in the last 12 months?: No Did you have a dental problem in the last 6 months where you did not have access to dental care?: No Was dental information given to patient?: Patient has dentist HPI Follow Up On Ultrasound/Echo & CT HPI Details chest wall pain; cardiac w/u unremarkable except for mild PFSH Medical History Aortic stenosis Pulmonary emboli DVT (deep venous thrombosis) Bacteremia due to Gram-positive bacteria COVID-19 Diabetes type 2, controlled Chronic GERD Nephrolithiasis BPH loc w urin obs/LUTS Irritable bowel syndrome Surgical History S/P cardiac cath History of colonoscopy History of hand surgery History of kidney stones Family History Father Medical history unknown Mother Medical history unknown Social History Household Members: None Housing: Apartment Do you presently have visiting nurse or other home services: No Alcohol intake: never Patient Tobacco Use Status: Never used Tobacco e-Cigarette/Vaping Use: Never Used Second Hand Smoke Exposure: No Advance Directives Date on File: 12/17/20 service: No 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 1. Little interest or pleasure in doing things: not at all 2. Feeling down, depressed, or hopeless: not at all 3. Trouble falling or staying asleep, or sleeping too much: not at all 4. Feeling tired or having little energy: not at all 5. Poor appetite or overeating: not at all 6. Feeling bad about yourself - or that you are a failure or have let yourself or your family down: not at all 7. Trouble concentrating on things, such as reading the newspaper or watching television: not at all 8. Moving or speaking so slowly that other people could have noticed. Or the opposite - being so fidgety or restless that you have been moving around a lot more than usual: not at all 9. Thoughts that you would be better off or of hurting yourself in some way: not at all Total score: 0 Depression Screening Interpretation: Negative Depression Screening Done: Yes 71783 - PHQ-9 Billing: Yes Source: Developed by Drs. Abdulaziz Hopson, Mellissa Booth, Rodríguez Singh and colleagues, with an educational mickie from [employer]. Thrive Questionnaire Date Thrive assessed: 02/24/23 AUDIT C Alcohol Use Questionnaire (AUDIT-C) 1. How often do you have a drink containing alcohol?: Never 3. How often do you have six or more drinks on one occasion?: Never Total Score: 0 Score Reviewed/Action Taken: Yes SIXTO-7 AMB Questionnaire SIXTO-7 Date SIXTO - 7 assessed: 02/24/23 Source: Developed by Drs. Abdulaziz Hopson, Mellissa Booth, Rodríguez Singh and colleagues, with an educational mickie from [employer]. Review of Systems Const Denies chills, Denies headache(s) and Denies weight loss ENT Denies headache(s) Card Denies syncope, Denies irregular heart rhythm and Denies dyspnea Resp Denies chest congestion, Denies cough and Denies dyspnea GI Denies abdominal pain, Denies change in stool character, Denies nausea and Denies vomiting Musc Denies deformity and Denies joint swelling Neuro Denies syncope and Denies headache(s) Physical exam (Primary Care) Vital Signs: Last Vital Signs Pulse 68 07/20/23 14:01 BP 144/90 H 07/20/23 14:01 Pulse Ox 99 07/20/23 14:01 Oxygen Delivery Method Room Air 07/20/23 14:01 BMI result Body Mass Index 28.4 Tobacco/Smoking Status: Tobacco use Status Tobacco use date assessed 04/24/23 07/20/23 14:02 Patient Tobacco Use Status Never used Tobacco 07/20/23 14:02 e-Cigarette/Vaping Use Never Used 07/20/23 14:02 PHQ-9: PHQ-9 Score PHQ-9: Total score 0 07/20/23 14:30 Depression Screening Interpretation: Negative Thrive Assessment: Date of Thrive Assessment Date Thrive assessed 02/24/23 07/20/23 14:02 Const General: cooperative, comfortable, no acute distress and alert Neck Neck: Yes no lymphadenopathy Thyroid: Thyroid normal Resp Effort & Inspection: normal respiratory effort Auscultation: clear to auscultation bilaterally Percussion: percussion normal Cardio Jugular venous distension: no JVD Palpation: normal PMI Rate: regular rate Rhythm: regular rhythm Heart sounds: S1 normal heart sound present and S2 normal heart sound present GI Inspection: Yes normal to inspection Palpation (GI): No hepatosplenomegaly present Skin General skin exam: no rashes or lesions noted Extrem General: Yes no clubbing, cyanosis or edema Results AMB Hemoglobin A1c AMB Hemoglobin A1c 8.2 % Last Edit by ANH Carcamo on 07/20/23 14:31 Results Reviewed Results Reviewed: Laboratory Last Values Hgb A1c (Clinic) 8.2 % (4.0-6.0) H 07/20/23 14:03 Assessment and Plan Assessment & Plan (1) Type 2 diabetes mellitus with obesity: Code(s): E11.69 - Type 2 diabetes mellitus with other specified complication; E66.9 - Obesity, unspecified (2) Chest wall pain: Code(s): R07.89 - Other chest pain Plan: rx sent Orders: Orders AMB Hemoglobin A1c 07/20/23 E11.69 - Type 2 diabetes mellitus with other specified complication, E66.9 - Obesity, unspecified Medications: New tizanidine 4 mg PO Q8H PRN 60 tabs 3RF muscle spasticity Coding Level of Care Code Est Pt Level 3 (69017) Diagnoses Type 2 diabetes mellitus with obesity E11.69; E66.9 Chest wall pain R07.89
== END 2023-07-20 15:07 | disposition home or self-care (01) ==
PROVIDERS: PCP Internal Medicine; Visit Provider Internal Medicine
DX: E11.69 Type 2 diabetes mellitus with other specified complication (principal)
CPT/HCPCS: 83036; 99213

== ENCOUNTER 2023-09-10 22:45 | Emergency (ER) | payer MEDICARE, SELFPAY ==
--- NOTE | ~2023-09-10 | CT_ITS ---
EXAMINATION: CT ABDOMEN AND PELVIS WITHOUT CONTRAST CLINICAL INFORMATION: Flank pain. History of renal stones. COMPARISON: None available. TECHNIQUE: Multidetector volumetric imaging was performed from the superior aspect of the liver through the pubic symphysis. Sagittal and coronal reformatted images were obtained on the technologist's workstation. This CT examination was performed using dose optimization techniques as appropriate, variously including the following: *Automated exposure control *Adjustment of mA and/or kV according to patient size (this includes techniques or standardized protocols for targeted exams where dose is matched to indication/reason for exam; i.e. extremities or head) *Use of iterative reconstruction technique DLP: 1267 mGy-cm FINDINGS: LUNG BASES: The visualized lung bases are unremarkable. LIVER, GALLBLADDER, AND BILIARY TREE: The liver is normal in size, shape, and attenuation. No focal hepatic lesion or biliary ductal dilatation is present. Multiple gallstones are noted. PANCREAS: Unremarkable. SPLEEN: Unremarkable. ADRENAL GLANDS: Unremarkable. KIDNEYS AND URETERS: The kidneys are normal in size and location. Bilateral small parapelvic cysts are noted. There are 1 and 3 mm calculi lower pole left kidney. There is no hydronephrosis. BLADDER: Unremarkable. GASTROINTESTINAL TRACT: There are diverticula of the descending colon without diverticulitis. The appendix is visualized and is within normal limits. ABDOMINAL WALL: There is a small umbilical hernia containing fat. LYMPH NODES: Normal. VASCULAR: There is mild atherosclerotic plaque of the abdominal aorta. PELVIC VISCERA: Unremarkable. OSSEOUS STRUCTURES: Unremarkable. CT/CT abdomen pelvis wo IV con IMPRESSION: 1. Nonobstructing left renal calculi. 2. Cholelithiasis. 3. Diverticulosis without diverticulitis. Fleischner guidelines were followed.
[2023-09-10 22:58] VITALS: BP 133/90; PULSE 98; RESP 18; TEMP 36.7; O2SAT 97; BMI 30.9
[2023-09-10 23:26] LABS: MANUAL DIFF FLAG NO
[2023-09-10 23:40] LABS: Alanine Aminotransferase 14 U/L (0-40); Albumin Level 3.9 g/dL (3.5-5.0); Alkaline Phosphatase 73 U/L (39-117); Anion Gap 14 (12-20); Aspartate Amino Transferase 15 U/L (5-37); Basophils Percent Auto 0.2 % (0-2); Blood Urea Nitrogen 14 mg/dL (9-16); Calcium 8.8 mg/dL (8.4-10.2); Carbon Dioxide 20 mmol/L (22-29); Chloride 107 mmol/L (96-108); Creatinine Clr Calc Pharmacy 92.9; Eosinophils Absolute Auto 0.1 X10*3/uL (0.0-0.4); Eosinophils Percent Auto 0.6 % (0-4); Estimated Glomerular Filt Rate > 60; Glucose Random 185 mg/dL (60-115); Hematocrit 42.3 % (42.0-52.0); Hemoglobin 14.3 g/dl (14.0-18.0); Imm Gran Abs Auto 0.01 X10*3/uL (0.00-0.03); Imm Gran Pct Auto 0.1 % (0.0-0.4); Lipase 12 U/L (8-78); Lymphocytes Absolute Auto 1.2 X10*3/uL (1.2-4.9); Lymphocytes Percent Auto 14.3 % (20-40); Mean Corpuscular HGB Conc 33.8 g/dl (31.0-36.0); Mean Corpuscular Hemoglobin 28.6 pg (27.0-33.0); Mean Corpuscular Volume 84.6 fL (80.0-98.0); Mean Platelet Volume 9.7 fL (9.4-12.4); Monocytes Absolute Auto 0.4 X10*3/uL (0.1-1.2); Monocytes Percent Auto 4.2 % (2-11); Neutrophils Absolute Auto 6.9 x10*3/uL (2.0-8.3); Neutrophils Percent Auto 80.6 % (45-73); Platelet Count 205 X10*3/uL (160-400); Potassium 3.9 mmol/L (3.3-5.1); Red Cell Distribution Width 13.4 % (11.0-16.0); Sodium 137 mmol/L (135-145); Total Protein 7.3 g/dL (6.5-8.0); White Blood Count 8.6 X10*3/uL (4.8-10.8)
[2023-09-11 00:54] LABS: Influenza A PCR NEGATIVE (Negative); Influenza B PCR NEGATIVE (Negative); Resp Syncy Virus RNA Qual PCR NEGATIVE (Negative); SARS COV2 PCR INHOUSE NEGATIVE (Negative)
--- NOTE | 2023-09-11 01:14 | ED.ABDPAIN ---
HPI - Abdominal Pain General Chief Complaint: Abdominal Pain Stated Complaint: vomiting,body aches Time Seen by Provider: 09/11/23 00:57 Source: patient Mode of arrival: ambulatory Limitations: no limitations History of Present Illness HPI narrative: 73-year-old male with history of aortic stenosis, pulmonary embolism DVT, diabetes, GERD, nephrolithiasis, BPH, IBS, who presents emergency department for evaluation of intermittent abdominal pain x1 month. Patient states that he has a history of kidney stones is had at least 5 procedures with the last procedure being 6 years ago. He states that the last month he has been experiencing bilateral flank pain which got worse last night. He states that the pain is worse in his left flank as right. He states that his abdomen felt very distended and the pain was greater than 10/10. He had 2 episodes of nausea vomiting. He denied fever but he did have chills. He denied frequency, urgency or dysuria. Related Data Home Medications Medication Instructions Recorded Confirmed lancets 28 gauge (FreeStyle #100 ea 02/02/21 07/21/23 Lancets) Previous Rx's Medication Instructions Recorded bisacodyl 5 mg tablet,delayed 5 mg PO DAILY #30 tabs 01/01/21 release blood-glucose meter (FreeStyle #1 ea 02/12/21 Lite Meter kit) acetaminophen 325 mg tablet 650 mg (2 x 325 mg) PO Q6H PRN 11/10/21 Pain, Mild (Pain Scale 1-3) #30 tabs finasteride 5 mg tablet (Proscar) 5 mg PO DAILY #30 tabs 07/19/22 metformin 1,000 mg tablet 1,000 mg PO BID #60 tabs 07/31/22 gabapentin 100 mg capsule 100 mg PO BID #60 caps 02/24/23 omeprazole 40 mg capsule,delayed 40 mg PO BID #60 caps 02/24/23 release triamcinolone acetonide 0.5 % 1 appl topical TID #15 grams 05/17/23 topical cream tizanidine 4 mg tablet 4 mg PO Q8H PRN muscle spasticity 07/20/23 #60 tabs blood sugar diagnostic (FreeStyle #100 ea 07/25/23 Lite Strips) aluminum hydrox-magnesium carb 254 10 ml PO QID dyspepsia #355 mL 09/11/23 mg-237.5 mg/5 mL oral suspension (Gaviscon Extra Strength) oxycodone 5 mg tablet 5 mg PO Q6H PRN pain #14 tabs 09/11/23 Allergies Allergy/AdvReac Type Severity Reaction Status Date / Time No Known Allergies Allergy Verified 09/10/23 23:02 Review of Systems Review of Systems Yes all other systems are reviewed and are negative [facility] Past Medical History [facility] Narrative: Social history: He denies tobacco, alcohol and drug use Medical History Aortic stenosis Pulmonary emboli DVT (deep venous thrombosis) Bacteremia due to Gram-positive bacteria COVID-19 Diabetes type 2, controlled Chronic GERD Nephrolithiasis BPH loc w urin obs/LUTS Irritable bowel syndrome Surgical History S/P cardiac cath History of colonoscopy History of hand surgery History of kidney stones Family History Family History Father Medical history unknown Mother Medical history unknown Social History Social History Household Members: None Housing: Apartment Do you presently have visiting nurse or other home services: No Alcohol intake: never Comment: sitter in room Patient Tobacco Use Status: Never used Tobacco e-Cigarette/Vaping Use: Never Used Second Hand Smoke Exposure: No Advance Directives: Yes Advance Directives on File: Yes Advance Directives Date on File: 12/17/20 service: No Current occupational status: employed 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 Current occupational exposures/hazards: No Cognitive needs: No Hearing needs: No Vision needs: No Physical Exam ED Vital Signs: Vital Signs - 24 hr 09/10/23 22:58 09/11/23 01:43 Temperature 98.0 F 98.0 F Pulse Rate 98 68 Respiratory Rate 18 16 Blood Pressure 133/90 H 105/57 L Pulse Oximetry 97 97 Oxygen Delivery Method Room Air Room Air BMI result Body Mass Index 30.9 Vital signs were normal Exam: General: Awake, alert in no distress Head: Normocephalic, atraumatic EENT: PERRL, Lids normal, sclera normal, conjunctiva normal, nose normal , ears normal, throat without erythema or exudates Neck: Supple, no adenopathy, no trachea midline or C-spine tenderness Lung: breath sounds symmetric, no wheezing, rales or rhonchi Chest: symmetric movement, nontender Heart: regular rate and rhythm, normal S1, S2 , 3/6 systolic murmur best heard at the left sternal border Abdomen: Obese, mild diffuse tenderness, normoactive bowel sounds, no distension Back: no vertebral tenderness, no CVAT Extremities: no deformities, moves all extremities sySkin: no rashes, no lesion, normal color and warmth Neuro: Awake, alert, oriented, normal speech, cranial nerves intact, moves all extremities symmetrically Psych: Pleasant, cooperative Medical Decision Making Medical Decision Making MDM Narrative: 73-year-old male with history of aortic stenosis, pulmonary embolism DVT, diabetes, GERD, nephrolithiasis, BPH, IBS, who presents emergency department for evaluation of intermittent abdominal pain x1 month with increased pain yesterday with 2 episodes of vomiting, states that he is having increased pain in the left flank compared to the right flank. Vital signs were unremarkable. Physical examination revealed diffuse abdominal tenderness with no CVA tenderness. Following evaluation was ordered: CBC, CMP, COVID-19, influenza, RSV, CT scan of the abdomen pelvis without IV contrast 01:19 My interpretation patient's laboratory evaluation is as follows: CBC was normal. CMP revealed an elevated glucose of 185. COVID-19, RSV and influenza were negative. Lipase was normal at 12. 03:09 CT scan did not reveal a clear cause for the patient's abdominal pain Patient's pain may be secondary to gastritis. Patient started on extra-strength Gaviscon, Tylenol and for pain not relieved by these medications oxycodone. Differential Diagnosis Differential Diagnoses: The differential diagnosis associated with the presentation includes Differential diagnosis includes was not limited to pancreatitis, gastritis, renal colic, ureteral colic, electrolyte abnormalities, anemia Admission/Observation Consideration of admission/observation: Escalation of care including admission/observation considered Lab Data [facility] Lab Attestation statement: I reviewed the patient's lab results. See MDM above 09/10/23 23:21 09/10/23 23:21 Labs: Lab Results 09/10/23 09/11/23 Range/Units 23:21 00:04 WBC 8.6 (4.8-10.8) X10*3/uL RBC 5.00 (4.60-5.80) X10*6/uL Hgb 14.3 (14.0-18.0) g/dl Hct 42.3 (42.0-52.0) % MCV 84.6 (80.0-98.0) fL MCH 28.6 (27.0-33.0) pg MCHC 33.8 (31.0-36.0) g/dl RDW 13.4 (11.0-16.0) % Plt Count 205 (160-400) X10*3/uL MPV 9.7 (9.4-12.4) fL Immature Gran % (Auto) 0.1 (0.0-0.4) % Neut % (Auto) 80.6 H (45-73) % Lymph % (Auto) 14.3 L (20-40) % Mathews % (Auto) 4.2 (2-11) % Eos % (Auto) 0.6 (0-4) % Baso % (Auto) 0.2 (0-2) % Lymph # (Auto) 1.2 (1.2-4.9) X10*3/uL Mathews # (Auto) 0.4 (0.1-1.2) X10*3/uL Eos # (Auto) 0.1 (0.0-0.4) X10*3/uL Baso # (Auto) 0.0 (0.0-0.2) X10*3/uL Abs Immat Gran (auto) 0.01 (0.00-0.03) X10*3/uL Absolute Neuts (auto) 6.9 (2.0-8.3) x10*3/uL Absolute Nucleated RBC 0.000 (0.0-0.012) X10*3/uL Nucleated RBC % (auto) 0.0 (0.0-0.2) /100WBC Sodium 137 (135-145) mmol/L Potassium 3.9 (3.3-5.1) mmol/L Chloride 107 (96-108) mmol/L Carbon Dioxide 20 L (22-29) mmol/L Anion Gap 14 (12-20) BUN 14 (9-16) mg/dL Creatinine 0.78 (0.5-1.4) mg/dL Estim Creat Clear Calc 92.9 Estimated GFR > 60 Random Glucose 185 H (60-115) mg/dL Calcium 8.8 D (8.4-10.2) mg/dL Total Bilirubin 1.0 (0.0-1.0) mg/dL AST 15 (5-37) U/L ALT 14 (0-40) U/L Alkaline Phosphatase 73 (39-117) U/L Total Protein 7.3 (6.5-8.0) g/dL Albumin 3.9 (3.5-5.0) g/dL Lipase 12 (8-78) U/L Influenza Type A (PCR) NEGATIVE (Negative) Influenza Type B (PCR) NEGATIVE (Negative) RSV RNA Qual (PCR) NEGATIVE (Negative) SARS-CoV-2 RNA (RT-PCR) NEGATIVE (Negative) Radiology Impression Discussion of test interpretation with radiology: I have reviewed the radiologist's reading. Radiologist Impression: CT abdomen pelvis wo IV con IMPRESSION: 1. Nonobstructing left renal calculi. 2. Cholelithiasis. 3. Diverticulosis without diverticulitis. Fleischner guidelines were followed. Dictated By: Abdulaziz Darby Independent Historian Clinical information obtained from an independent historian. History obtained from or confirmed by: Other (Son) Prescription Management I considered prescription management with: Pain Medication Chronic Conditions Patient?s care impacted by: Diabetes Discharge Plan Discharge Clinical Impression: Abdominal pain Patient Disposition: Home, Self-Care Instructions: Abdominal Pain (ED) Additional Instructions: Your blood work was unremarkable. The CT scan did not reveal a clear cause for your pain. You do have a stone in your left kidney but this is not causing your pain, you also have gallstones but these are not causing your pain. At this time I want to treat you for possible inflammation of your stomach (gastritis) Take extra-strength Gaviscon 10 mL (2 tsp) 4 times a day as needed for abdominal pain. Take Tylenol (acetaminophen) 500 mg pills, 2 pills every 6 hours as needed for pain. For pain not relieved by Gaviscon or Tylenol take oxycodone 5 mg pills, 1 pill every 4 hours as needed for pain. Do not drive or work while taking this medication since they can cause sleepiness. Oxycodone is a narcotic medication that can be addicting. If you are concerned about addiction you can ask the pharmacist for less pills or do not get this prescription filled. Follow-up with your doctor in 2 days. Please return to the emergency department if your symptoms get worse or if you develop any symptoms that are concerning to you. Prescriptions: New Gaviscon Extra Strength 254-237.5 mg/5 mL suspension 10 ml PO QID Qty: 355 0RF oxycodone 5 mg tablet 5 mg PO Q6H PRN (Reason: pain) Qty: 14 0RF Rx Instructions: Patient may request partial refill; Partial Fill upon patient request. No Action (DME) blood-glucose meter [FreeStyle Lite Meter] Kit See Rx Instructions .ROUTE .MEDSUPPLY Qty: 1 0RF Rx Instructions: TO CHECK BLOOD SUGARS THREE TIMES A DAY finasteride [Proscar] 5 mg tablet 5 mg PO DAILY Qty: 30 4RF metformin 1,000 mg tablet 1,000 mg PO BID Qty: 60 8RF (DME) FreeStyle Lite Strips Strip See Rx Instructions .ROUTE .MEDSUPPLY Qty: 100 12RF Rx Instructions: TO CHECK BLOOD SUGARS THREE TIMES A DAY bisacodyl 5 mg Tablet,Delayed Release (Dr/Ec) 5 mg PO DAILY Qty: 30 0RF (DME) lancets [FreeStyle Lancets] 28 gauge misc See Rx Instructions .ROUTE .MEDSUPPLY Qty: 100 Rx Instructions: TO CHECK BLOOD SUGARS THREE TIMES A DAY gabapentin 100 mg capsule 100 mg PO BID Qty: 60 8RF omeprazole 40 mg capsule,delayed release(DR/EC) 40 mg PO BID Qty: 60 8RF triamcinolone acetonide 0.5 % cream 1 appl topical TID Qty: 15 3RF tizanidine 4 mg tablet 4 mg PO Q8H PRN (Reason: muscle spasticity) Qty: 60 3RF acetaminophen 325 mg tablet 650 mg PO Q6H PRN (Reason: Pain, Mild (Pain Scale 1-3)) Qty: 30 0RF
[2023-09-11 01:43] VITALS: BP 105/57; PULSE 68; RESP 16; TEMP 36.7; O2SAT 97
[2023-09-11] MEDS: oxyCODONE HCl Immed Release 5 MG TABLET 10 MG PO (03:21)
== END 2023-09-11 03:33 | disposition home or self-care (01) ==
PROVIDERS: Physician Assistant Medical; Emergency Provider Emergency Medicine Emergency Medical Services; PCP Internal Medicine
DX: R10.9 Unspecified abdominal pain (principal); R11.10 Vomiting, unspecified; E11.9 Type 2 diabetes mellitus without complications; Z20.822 Contact with and (suspected) exposure to COVID-19; Z20.828 Contact with and (suspected) exposure to other viral communicable diseases
CPT/HCPCS: 0241U; 36415; 74176; 80053; 83690; 85025; 99284

== ENCOUNTER 2024-02-27 09:51 | Outpatient (AMB) | payer MEDICARE, SELFPAY ==
[2024-02-27 09:53] VITALS: BP 130/70; PULSE 75; O2SAT 98; BMI 30.4
--- NOTE | 2024-02-27 09:53 | AM.OFFVISMDC ---
Intake Vital Signs 02/27/24 09:53 Height 5 ft 8 in Weight 200 lb BMI 30.4 BP 130/70 Blood Pressure Location Lt brachial Position Sitting Pulse 75 Pulse Source Pulse Oximeter Pulse Oximetry (%) 98 Oxygen Delivery Method Room Air Intake Visit Reasons: Medicare Wellness visit Allergies No Known Allergies Allergy (Verified 02/27/24 09:54) Medication List - Last Reconciled 02/27/24 by Jaxon Fuentes MD acetaminophen 650 mg (2 x 325 mg) PO Q6H PRN aluminum hydrox-magnesium carb 254-237.5 mg/5 mL (Gaviscon Extra Strength) 10 mL PO QID bisacodyl 5 mg PO DAILY blood sugar diagnostic (FreeStyle Lite Strips) TO CHECK BLOOD SUGARS THREE TIMES A DAY blood-glucose meter (FreeStyle Lite Meter kit) TO CHECK BLOOD SUGARS THREE TIMES A DAY efinaconazole 10% (Jublia) 1 appl topical DAILY 48 weeks finasteride (Proscar) 5 mg PO DAILY gabapentin 100 mg PO BID lancets (FreeStyle Lancets) TO CHECK BLOOD SUGARS THREE TIMES A DAY metformin 1,000 mg PO BID omeprazole 40 mg PO BID oxycodone 5 mg PO Q6H PRN tizanidine 4 mg PO Q8H PRN triamcinolone acetonide 0.5% 1 appl topical TID HPI Medicare Wellness visit HPI Details DM; due for labs PFSH Medical History Aortic stenosis Pulmonary emboli DVT (deep venous thrombosis) Bacteremia due to Gram-positive bacteria COVID-19 Diabetes type 2, controlled Chronic GERD Nephrolithiasis BPH loc w urin obs/LUTS Irritable bowel syndrome Surgical History S/P cardiac cath History of colonoscopy History of hand surgery History of kidney stones Family History Father Medical history unknown Mother Medical history unknown Social History Household Members: None Housing: Apartment Do you presently have visiting nurse or other home services: No Alcohol intake: never Comment: sitter in room Patient Tobacco Use Status: Never used Tobacco e-Cigarette/Vaping Use: Never Used Second Hand Smoke Exposure: No Advance Directives Date on File: 12/17/20 service: No Current occupational status: employed 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 Current occupational exposures/hazards: No Cognitive needs: No Hearing needs: No Vision needs: No Questionnaire Medicare Wellness Checkup [age] What gender do you identify with?: male During the past 4 weeks, has your physical & emotional health limited your social activities with family, friends, neighbors, or groups?: extremely During the past 4 weeks, how much bodily pain have you generally had?: severe pain During the past 4 weeks, was someone available to help you if you needed & wanted help?: yes, as much as I wanted During the past 4 weeks, what was the hardest physical activity you could do for at least 2 minutes?: heavy Can you get to places out of walking distance without help? (For eg., can you travel alone on buses, taxis or drive your car?): No Can you go shopping for groceries or clothes without someone's help?: No Can you prepare your own meals?: Yes Can you do your housework without help?: No Because of any health problems, do you need the help of another person with your personal care needs such as eating, bathing, dressing or getting around the house?: Yes Can you handle your own money without help?: Yes During the past 4 weeks, how would you rate your health in general?: fair During the past 4 weeks how have things been going for you?: pretty bad Are you having difficulties driving your car?: not applicable, I don't use a car Do you always fasten your seat belt when you are in a car?: yes, usually During past 4 weeks, have you been bothered by the following: sometimes: Falling or dizzy when standing up and always: Sexual problems? and Tiredness or fatigue? Have you fallen 2 or more times in the past year?: Yes Are you afraid of falling?: Yes Are you a smoker?: no During the past 4 weeks, how many drinks of wine, beer, or other alcoholic beverages did you have?: no alcohol at all Do you exercise for about 20 minutes 3 or more times a week?: yes, some of the time Have you been given information to help with the following?: yes: Hazards in your house that might hurt you? and no: Keeping track of your medications? How often do you have trouble taking medicines the way you have been told to take them?: sometimes I take medicine as prescribed How confident are you that you can control & manage most of your health problems?: not very confident What is your race?: Other Mini Mental State Exam (MMSE) Orientation What is the (year) (season) (date) (day) (month)?: year and season Where are we (state) (county) (town or city) (hospital) (floor)?: state, county and town or city Registration Name of 3 unrelated objects clearly and slowly, then ask patient to repeat all 3 of them. (1st repeat determines score. Make sure they can repeat all three): object 1, object 2 and object 3 Attention & Calculation (CHOOSE ONE) Ask pt to begin with 100 & count backward by 7. Stop after 5 repeats. If pt cannot ask them to spell the word WORLD backward.: 93 Spell WORLD backwards (DLROW): 5 letters Recall Ask patient to repeat the 3 items from question #3.: object 1 Score Score: 15 Activity of Daily Living Bathing - sponge bath, tub bath or shower: receives no assistance (gets in/out by self, if usual bathing means Dressing - getting clothes from closets & drawers, including inner/outer garments & fasteners.: gets clothes & gets completely dressed without help Toileting - going to the 'toilet room' for urine/bowel elimination & cleaning self/arranging clothes: goes to toilet room, cleans self, arranges clothes without help Transfer: moves in & out of bed and chair without help (may use support object) Continence: controls urination/bowel movements completely by self Feeding: feeds self without help Total Score: 0 Information obtained from: patient Using telephone: independent Traveling: independent Shopping: independent Preparing meals: independent Housework: independent Taking medicine: independent Managing money: independent PHQ-9 Over the last 2 weeks, how often have you been bothered by any of the following problems? 1. Little interest or pleasure in doing things: not at all 2. Feeling down, depressed, or hopeless: not at all 3. Trouble falling or staying asleep, or sleeping too much: not at all 4. Feeling tired or having little energy: not at all 5. Poor appetite or overeating: not at all 6. Feeling bad about yourself - or that you are a failure or have let yourself or your family down: not at all 7. Trouble concentrating on things, such as reading the newspaper or watching television: not at all 8. Moving or speaking so slowly that other people could have noticed. Or the opposite - being so fidgety or restless that you have been moving around a lot more than usual: not at all 9. Thoughts that you would be better off or of hurting yourself in some way: not at all Total score: 0 Depression Screening Interpretation: Negative Depression Screening Done: Yes 71636 - PHQ-9 Billing: Yes Source: Developed by Drs. Abdulaziz Hopson, Mellissa Booth, Rodríguez Singh and colleagues, with an educational mickie from [employer]. Review of Systems Const Denies chills, Denies fatigue, Denies headache(s) and Denies weight loss Eyes Denies change in vision, Denies diplopia and Denies eye pain ENT Reports Normal hearing present, Denies vertigo, Denies dizziness, Denies headache(s) and Denies nasal discharge Card Denies chest pain, Denies rapid heart rate and Denies dyspnea on exertion Resp Denies chest congestion, Denies cough, Denies pain with cough and Denies dyspnea on exertion GI Denies abdominal pain, Denies hematochezia and Denies change in bowel habits Musc Denies myalgias, Denies arthralgias and Denies joint swelling Skin/Breast Denies lesions and Denies unusual bruising Neuro Reports Normal hearing present, Denies vertigo, Denies dizziness, Denies headache(s) and Denies focal weakness Endo Denies fatigue Physical Exam Vital Signs: Last Vital Signs Pulse 75 02/27/24 09:53 BP 130/70 02/27/24 09:53 Pulse Ox 98 02/27/24 09:53 Oxygen Delivery Method Room Air 02/27/24 09:53 BMI result Body Mass Index 30.4 Neuro Cranial nerves: Yes Normal hearing present Assessment & Plan Assessment & Plan (1) Encounter for initial annual wellness visit (AWV) in Medicare patient: Code(s): Z00.00 - Encounter for general adult medical examination without abnormal findings Plan: rhomberg and whisper tests nl (2) Diabetes mellitus: Code(s): E11.9 - Type 2 diabetes mellitus without complications Plan: do labs Orders: Orders Lipid Panel Today Z13.220 - Encounter for screening for lipoid disorders Thyroid Stimulating Hormone Today Z13.29 - Encounter for screening for other suspected endocrine disorder Comprehensive [place]. Panel Fast Today Z13.9 - Encounter for screening, unspecified Hemoglobin A1c Today R73.9 - Hyperglycemia, unspecified Prostate Specific Antigen Scr Today Z00.00 - Encounter for general adult medical examination without abnormal findings Complete Blood Count Auto Diff Today Z13.0 - Encounter for screening for diseases of the blood and blood-forming organs and certain disorders involving the immune mechanism Microalbumin, Random (w Creat) Today E11.69 - Type 2 diabetes mellitus with other specified complication, E66.01 - Morbid (severe) obesity due to excess calories Medications: New efinaconazole 10% (Jublia) 1 appl topical DAILY 8 mL 0RF 48 weeks Quality Reporting (2019) Depression/Bipolar (159/160/161/177) PHQ-9: Total score: 0 Coding Level of Care Code Medicare First (G0438) Diagnoses Encounter for initial annual wellness visit (AWV) in Medicare patient Z00.00 Diabetes mellitus E11.9 CPT Codes Advance Care Planning - Advance Care Planning discussion: On file, no changes ([id number]) Advance Care Planning - Time spent: 1-15 minutes, on File ([id number]) Advance Care Planning Advance Care Planning discussion: On file, no changes Forms completed: Health Care Proxy Time spent: 1-15 minutes, on File
== END 2024-02-27 10:16 | disposition home or self-care (01) ==
PROVIDERS: PCP Internal Medicine; Visit Provider Internal Medicine
DX: Z00.00 Encounter for general adult medical examination without abnormal findings (principal); E11.65 Type 2 diabetes mellitus with hyperglycemia; Z86.711 Personal history of pulmonary embolism
CPT/HCPCS: 1123F; G0438; G0439

== ENCOUNTER 2024-02-27 10:33 | Outpatient (REF) | payer MEDICARE, SELFPAY ==
[2024-02-27 10:54] LABS: MANUAL DIFF FLAG NO
[2024-02-27 12:04] LABS: Basophils Absolute Auto 0.1 X10*3/uL (0.0-0.2); Basophils Percent Auto 0.5 % (0-2); Eosinophils Absolute Auto 0.1 X10*3/uL (0.0-0.4); Eosinophils Percent Auto 1.3 % (0-4); Hematocrit 41.8 % (42.0-52.0); Hemoglobin 13.8 g/dl (14.0-18.0); Imm Gran Abs Auto 0.04 X10*3/uL (0.00-0.03); Imm Gran Pct Auto 0.4 % (0.0-0.4); Lymphocytes Absolute Auto 3.5 X10*3/uL (1.2-4.9); Lymphocytes Percent Auto 37.8 % (20-40); Mean Corpuscular Hemoglobin 28.8 pg (27.0-33.0); Mean Corpuscular Volume 87.3 fL (80.0-98.0); Mean Platelet Volume 10.3 fL (9.4-12.4); Monocytes Absolute Auto 0.5 X10*3/uL (0.1-1.2); Monocytes Percent Auto 5.5 % (2-11); Neutrophils Absolute Auto 5.1 x10*3/uL (2.0-8.3); Neutrophils Percent Auto 54.5 % (45-73); Platelet Count 232 X10*3/uL (160-400); Red Blood Count 4.79 X10*6/uL (4.60-5.80); Red Cell Distribution Width 13.2 % (11.0-16.0); White Blood Count 9.3 X10*3/uL (4.8-10.8)
[2024-02-27 12:43] LABS: Estimated Average Glucose 177 mg/dL; Hemoglobin A1c % 7.8 % (<6.0)
[2024-02-27 12:44] LABS: Alanine Aminotransferase 16 U/L (0-40); Albumin Level 4.1 g/dL (3.5-5.0); Alkaline Phosphatase 77 U/L (39-117); Anion Gap 14 (12-20); Aspartate Amino Transferase 15 U/L (5-37); Bilirubin Total 0.6 mg/dL (0.0-1.0); Blood Urea Nitrogen 15 mg/dL (9-16); Calcium 9.5 mg/dL (8.4-10.2); Carbon Dioxide 24 mmol/L (22-29); Chloride 105 mmol/L (96-108); Cholesterol 187 mg/dL (<200); Estimated Glomerular Filt Rate > 60; Glucose Fasting 155 mg/dL (60-99); HDL Cholesterol 45 mg/dL (>40); LDL Cholesterol Calculated 126 mg/dL (<100); Potassium 3.9 mmol/L (3.3-5.1); Sodium 139 mmol/L (135-145); Total Protein 7.8 g/dL (6.5-8.0); Triglycerides 80 mg/dL (<150)
[2024-02-27 13:05] LABS: Prostate Specific Antigen Scr < 0.10 ng/mL (<0.05-4.0)
== END 2024-02-27 10:34 | disposition home or self-care (01) ==
LOC: HO.LAB 10:33
PROVIDERS: PCP Internal Medicine; Visit Provider Internal Medicine
DX: Z00.00 Encounter for general adult medical examination without abnormal findings (principal); Z13.0 Encounter for screening for diseases of the blood and blood-forming organs and certain disorders involving the immune mechanism; Z13.220 Encounter for screening for lipoid disorders; R73.9 Hyperglycemia, unspecified; Z13.29 Encounter for screening for other suspected endocrine disorder; Z13.9 Encounter for screening, unspecified; Z12.5 Encounter for screening for malignant neoplasm of prostate
CPT/HCPCS: 36415; 80053; 80061; 83036; 84153; 84443; 85025

== ENCOUNTER → 2024-03-12 08:54 | Outpatient (REF) | payer MEDICARE, SELFPAY ==
--- NOTE | 2024-03-12 08:57 | CA_ITS ---
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 The calculated ejection fraction is 64% by biplane method. - There is moderate septal asymmetric hypertrophy. - There is moderate aortic valve stenosis. Findings Procedure Information Contrast agent, definity, is being given per protocol without apparent complications. Left Ventricle Normal left ventricular cavity size. The left ventricular systolic function is normal. The calculated ejection fraction is 64% by biplane method. There is no evidence of regional wall motion abnormalities. Evidence suggests grade I (mild) diastolic dysfunction. There is moderate septal asymmetric hypertrophy. Right Ventricle Normal right ventricular cavity size and systolic function. Atria Both atria are normal in size. Aortic Valve There is moderate calcification of the aortic valve. There is moderate aortic valve stenosis. The peak aortic velocity is 3.03 m/s with a calculated peak gradient of 37 mmHg. The mean gradient is 22 mmHg. The aortic valve area is 1.09 cm2. There is no aortic valve regurgitation. Mitral Valve The mitral valve appears normal. There is no mitral valve regurgitation. There is no mitral valve stenosis. Pulmonic Valve The pulmonic valve is likely normal. Tricuspid Valve There is trace tricuspid valve regurgitation. There is no evidence of pulmonary hypertension. Great Vessels The asc aorta is normal in size. Venous The inferior vena cava is normal in size and collapses greater than 50% with inspiration. Pericardium/Pleural There is no evidence of pericardial effusion. Prior Study Comparison No significant change compared to prior study dated: 06/07/2023. Measurements 2D Linear Measurements IVSd: 1.40 0.6-0.9/0.6-1.0 cm LVIDd: 3.28 3.9-5.3/4.2-5.9 cm LVIDd Index: 1.62 2.4-3.2/2.2-3.1 cm/m2 LVIDs: 2.45 2.0-3.6 cm LVPWd: 0.97 0.7-1.1 cm LA Diam: 4.10 2.7-3.8/3.0-4.0 cm LAIDs Index: 2.03 1.5-2.3 cm/m2 LV Mass: 150.88 67-162/88-224 g LV Mass Index: 74.69 43-95/49-115 g/m2 LVOT Diam: 2.20 3.0+(-)1.3 cm 2D Systolic Function EF 4C: 62.80 >55% EF 2C: 63.30 >55% EF BiP: 63.90 >55% Mitral Valve MV Pk E: 0.77 MV PK A: 1.41 MV Decel Time: 253.00 E/A: 0.50 E'Lateral: 6.85 E'Medial: 5.11 E/E' Med: 15.00 E/E' Lat: 11.20 PHT: 74.00 MVA PHT: 2.97 Decel Angelina: 3.02 Aortic Valve AoV Pk Baron: 3.03 AoV Mn Baron: 2.23 AoV VTI: 0.70 AoV Pk Grad: 37.00 Aov Mn Grad: 22.00 CURRY Cont.VTI: 1.09 LVOT LVOT Pk Baron: 0.98 LVOT Mn Baron: 0.69 LVOT VTI: 0.20 LVOT Pk Grad: 4.00 LVOT Mn Grad: 2.00 LVOT Diam: 2.20 LVOT Area: 3.80 Diastolic Function MV Pk E: 0.77 MV Pk A: 1.41 E/A: 0.50 E'Medial: 5.11 E/E' Med: 15.00 E' Laterial: 6.85 E/E' Lat: 11.20 Right Ventricle TAPSE (mm): 22.60 TVS' Baron: 12.00 Tricuspid Valve TR Pk Baron: 2.27 TR Pk Grad: 21.00 RA Press: 3.00 RVSP: 24.00 Great Vessels Aorta Sinus of Valsalva: 3.59 2.0-3.[address] [place]: 2.63 1.7-3.4 cm Ao Asc: 3.60 2.1-3.4 cm Updated in Other Vendor System with Status of Final Robert Guillaume MD electronically signed on 03/14/2024 12:13:38 PM with status of Final
== END ==
LOC: HO.CARD 08:54
PROVIDERS: Visit Provider Nurse Practitioner Family
DX: I35.0 Nonrheumatic aortic (valve) stenosis (principal)
CPT/HCPCS: 93306; Q9957

== ENCOUNTER → 2024-03-12 08:57 | Outpatient (BNV) | payer MEDICARE, SELFPAY | PROVIDERS: Visit Provider Internal Medicine | DX: I35.0 Nonrheumatic aortic (valve) stenosis (principal); I42.2 Other hypertrophic cardiomyopathy; I35.8 Other nonrheumatic aortic valve disorders | CPT/HCPCS: 93306 ==

== ENCOUNTER 2024-03-13 08:52 | Outpatient (AMB) | payer MEDICARE, SELFPAY ==
[2024-03-13 08:59] VITALS: BP 124/78; PULSE 75; O2SAT 98
--- NOTE | 2024-03-13 08:59 | MHC.PC.OV ---
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 Accompanied by: Self / Same As Patient Allergies No Known Allergies Allergy (Verified 02/27/24 09:54) Tobacco use date assessed: 03/13/24 Fall risk assessment: No Falls in past year Last assessed Fall Risk: 03/13/24 Dental Screening Dental Screen Date: 03/13/24 Did you have a dental visit in the last 12 months?: No Did you have a dental problem in the last 6 months where you did not have access to dental care?: No Was dental information given to patient?: Patient has dentist HPI 1 Month F/U HPI Details DM in good control; compliant [facility] Medical History Aortic stenosis Pulmonary emboli DVT (deep venous thrombosis) Bacteremia due to Gram-positive bacteria COVID-19 Diabetes type 2, controlled Chronic GERD Nephrolithiasis BPH loc w urin obs/LUTS Irritable bowel syndrome Surgical History S/P cardiac cath History of colonoscopy History of hand surgery History of kidney stones Family History Father Medical history unknown Mother Medical history unknown Social History Household Members: None Housing: Apartment Do you presently have visiting nurse or other home services: No Alcohol intake: never Comment: sitter in room Patient Tobacco Use Status: Never used Tobacco e-Cigarette/Vaping Use: Never Used Second Hand Smoke Exposure: No Advance Directives Date on File: 12/17/20 service: No Current occupational status: employed 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 Current occupational exposures/hazards: No Cognitive needs: No Hearing needs: No Vision needs: No Questionnaire Thrive Questionnaire Date Thrive assessed: 03/13/24 I am a: Patient What is your living situation today?: I have a steady place to live Within the past 12 months, did the food you bought not last and you didn't have the money to get more?: Never true Within the past 12 months, did you worry whether your food would run out before you got money to buy more?: Never true Do you have trouble paying for medicines?: No Do you have trouble getting transportation to medical appointments?: No Do you have trouble paying your heating and electricity bill?: No Do you have trouble taking care of your child, family member or friend?: No Do you have trouble with day-to-day activities such as bathing, preparing meals, shopping, managing finances, etc.?: No Are you currently unemployed and looking for a job?: No Are you interested in more education?: No Please select the resources that you would like help with: None THRIVE Score: 0 AUDIT C Alcohol Use Questionnaire (AUDIT-C) 1. How often do you have a drink containing alcohol?: Never 3. How often do you have six or more drinks on one occasion?: Never Total Score: 0 Score Reviewed/Action Taken: Yes SIXTO-7 AMB Questionnaire SIXTO-7 Date SIXTO - 7 assessed: 03/13/24 Feeling nervous, anxious, or on edge: 0 = Not at all Not being able to stop or control worryin = Not at all Worrying too much about different things: 0 = Not at all Trouble relaxin = Not at all Being so restless that it is hard to sit still: 0 = Not at all Becoming easily annoyed or irritable: 0 = Not at all Feeling afraid as if something awful might happen: 0 = Not at all Total SIXTO-7 score (0-4 normal; 5-9 mild; 10-14 moderate; 15-21 severe): 0 Source: Developed by Drs. Abdulaziz Hopson, Mellissa Booth, Rodríguez Singh and colleagues, with an educational mickie from [employer]. Review of Systems Const Denies chills, Denies headache(s) and Denies weight loss ENT Denies headache(s) Card Denies chest pain, Denies syncope, Denies irregular heart rhythm and Denies dyspnea Resp Denies chest congestion, Denies cough and Denies dyspnea GI Denies abdominal pain, Denies change in stool character, Denies nausea and Denies vomiting Musc Denies deformity and Denies joint swelling Neuro Denies syncope and Denies headache(s) Physical exam (Primary Care) Vital Signs: Last Vital Signs Pulse 75 03/13/24 08:59 BP 124/78 03/13/24 08:59 Pulse Ox 98 03/13/24 08:59 Oxygen Delivery Method Room Air 03/13/24 08:59 BMI result Body Mass Index 30.0 Tobacco/Smoking Status: Tobacco use Status Tobacco use date assessed 03/13/24 03/13/24 09:01 Patient Tobacco Use Status Never used Tobacco 03/13/24 09:01 e-Cigarette/Vaping Use Never Used 03/13/24 09:01 Thrive Assessment: Date of Thrive Assessment Date Thrive assessed 03/13/24 03/13/24 09:01 Const General: cooperative, comfortable, no acute distress and alert Neck Neck: Yes no lymphadenopathy Thyroid: Thyroid normal Resp Effort & Inspection: normal respiratory effort Auscultation: clear to auscultation bilaterally Percussion: percussion normal Cardio Jugular venous distension: no JVD Palpation: normal PMI Rate: regular rate Rhythm: regular rhythm Heart sounds: S1 normal heart sound present and S2 normal heart sound present GI Inspection: Yes normal to inspection Palpation (GI): No hepatosplenomegaly present Skin General skin exam: no rashes or lesions noted Extrem General: Yes no clubbing, cyanosis or edema Assessment and Plan Assessment & Plan (1) Diabetes mellitus: Code(s): E11.9 - Type 2 diabetes mellitus without complications Plan: stable; same rx Orders: Orders Hemoglobin A1c Today R73.9 - Hyperglycemia, unspecified Lipid Panel Today Z13.220 - Encounter for screening for lipoid disorders Glucose Fasting Today R73.9 - Hyperglycemia, unspecified Coding Level of Care Code Est Pt Level 3 (16525) Diagnoses Diabetes mellitus E11.9
== END 2024-03-13 09:28 | disposition home or self-care (01) ==
PROVIDERS: PCP Internal Medicine; Visit Provider Internal Medicine
DX: E11.9 Type 2 diabetes mellitus without complications (principal)
CPT/HCPCS: 99213

== ENCOUNTER 2024-03-26 15:05 | Outpatient (AMB) | payer MEDICARE, SELFPAY ==
[2024-03-26 15:19] VITALS: BP 144/80; PULSE 96; BMI 30.5
--- NOTE | 2024-03-26 15:19 | MHC.OFFVIS ---
Vital Signs 03/26/24 15:19 Height 5 ft 8 in Weight 200 lb 9.93 oz BMI 30.5 BP 144/80 H Blood Pressure Location Lt brachial Position Sitting Pulse 96 Pulse Source Pulse Oximeter Intake Visit Reasons: 9m follow up Line Driver Required: No Allergies No Known Allergies Allergy (Verified 03/26/24 15:22) Medication List - Last Reconciled 03/26/24 by WEN Paul acetaminophen 650 mg (2 x 325 mg) PO Q6H PRN aluminum hydrox-magnesium carb 254-237.5 mg/5 mL (Gaviscon Extra Strength) 10 mL PO QID blood sugar diagnostic (FreeStyle Lite Strips) TO CHECK BLOOD SUGARS THREE TIMES A DAY blood-glucose meter (FreeStyle Lite Meter kit) TO CHECK BLOOD SUGARS THREE TIMES A DAY finasteride (Proscar) 5 mg PO DAILY gabapentin 100 mg PO BID lancets (FreeStyle Lancets) TO CHECK BLOOD SUGARS THREE TIMES A DAY metformin 1,000 mg PO BID omeprazole 40 mg PO BID tizanidine 4 mg PO Q8H PRN triamcinolone acetonide 0.5% 1 appl topical TID HPI HPI 9m follow up: Details: Mariposa is a 74 yo male with PMH of DM, HTN, aortic stenosis, minimal nonobstructive CAD on cath 2018, SVT episode 2020 and was started on metoprolol who was seen last April for reports of chest tightness. He underwent a nuclear stress test and echocardiogram without contributing findings. He recently had a repeat echo to reassess his aortic stenosis and and now presents for follow-up. Today he reports that in all he has had 4 episodes in the last 11 months of what he describes as severe chest tightness, the last episode occurring the day after recent echo. Each of his episodes have occurred with him in a laying down position and has woken him from sleep. He describes having diaphrosis but no nausea or vomiting with the episodes. The last episode lasted 15-20 minutes and he says he felt like he was going to . Each episode has gone away gradually without specific treatment. He has history of GERD but states this is something difrent. 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 He has not had any chest tightness when doing physical activity or when in an uprigth position. He does not feel that certain food affect his condition. He denies shortness of breath, palpitations, presyncope, syncope, falls, PND, orthopnea or edema. He has only been taking his omeprazole once or twice a week. He had not followed with GI in a few years. [facility] Medical History Aortic stenosis Pulmonary emboli DVT (deep venous thrombosis) Bacteremia due to Gram-positive bacteria COVID-19 Diabetes type 2, controlled Chronic GERD Nephrolithiasis BPH loc w urin obs/LUTS Irritable bowel syndrome Surgical History S/P cardiac cath History of colonoscopy History of hand surgery History of kidney stones Family History Father Medical history unknown Mother Medical history unknown Social History Household Members: None Housing: Apartment Do you presently have visiting nurse or other home services: No Alcohol intake: never Comment: sitter in room Patient Tobacco Use Status: Never used Tobacco e-Cigarette/Vaping Use: Never Used Second Hand Smoke Exposure: No Advance Directives Date on File: 12/17/20 service: No Current occupational status: employed 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 Current occupational exposures/hazards: No Cognitive needs: No Hearing needs: No Vision needs: No Review of Systems Const All systems reviewed & are unremarkable except as noted in HPI and below ENT Denies dizziness Card Reports chest pain, Denies chest pain at rest, Denies chest pain with activity, Denies rapid heart rate, Denies pedal edema, Denies edema, Denies leg edema, Denies lightheadedness, Denies palpitations, Denies dyspnea, Denies dyspnea on exertion and Denies orthopnea Resp Denies cough, Denies dyspnea and Denies dyspnea on exertion GI Denies hematochezia and Denies change in stool character Musc Denies abnormal gait, Denies limited range of motion, Denies muscle cramps, Denies muscle weakness, Denies numbness, Denies radiating pain into limb, Denies stiffness and Denies tingling Neuro Denies abnormal gait, Denies dizziness, Denies numbness and Denies tingling Endo Denies palpitations Physical Exam Vital Signs: Last Vital Signs Pulse 96 03/26/24 15:19 BP 144/80 H 03/26/24 15:19 BMI result Body Mass Index 30.5 Const General: cooperative, healthy appearing, comfortable and no acute distress Orientation/consciousness: patient oriented x3 Neck Neck: Yes normal visual inspection and Yes no JVD Resp Effort & Inspection: normal respiratory effort Auscultation: clear to auscultation bilaterally, no crackles, no rales, no rhonchi and no wheezes Cardio Jugular venous distension: no JVD Rate: regular rate Rhythm: regular rhythm Heart sounds: S2 normal heart sound present, Murmur heart sound present (systolic, 3/6 left sternal border, second heart sound audible) and no rubs Peripheral pulses: Peripheral pulses 2+ throughout Neuro General: patient oriented x3 Extrem General: Yes normal to inspection, No no pedal edema and No calf tenderness Psych Appearance: grossly normal Mental Status: mental status grossly normal Speech and movement: Normal speech and movement present Office Procedures EKG Details: Today, read by me, normal sinus rhythm, first-degree AV block, no acute ST or T-wave abnormalities, rate 94, QTC 442 milliseconds [id number], Complete Assessment & Plan Assessment & Plan (1) Chest discomfort: Code(s): R07.89 - Other chest pain Category: Medical Plan: Patient describes 4 episodes, in the last 11 months, of tightness across his chest and into his shoulders with diaphoresis, each that has occurred with him in a laying down position. Symptoms have random occurrence and resolve gradually without treatment. He has not had symptoms in an upright position or with physical activity. This description is concerning yet atypical for ischemia. He has a known history of minimal nonbstructive CAD on cardiac cath 05/24/2019. He has cardiac risk factors of age, HTN, DM. For his symptom of chest tightness, he underwent Echocardiogram on 06/07/2023 showing EF 60-65%, impaired relaxation, no reported regional wall motion abnormality, moderate aortic stenosis. A nuclear stress test done 06/08/2023 showing normal myocardial perfusion imaging. Since his had progressed, he underwent a repeat echo on 03/12/24 showing EF 64%, no regional wall motion abnormality, moderate aortic stenosis. Today he describes having his severe chest tightness the day following his echo. He did not seek medical attention. The symptom gradually resolved and has not reoccurred. EKG done today shows SR, 1st degree AVB, no acute ST/ T wave abnormalities. At present there is no clear cardiac findings that account for his symptom. He does have a history of GERD, eats spicy foods and tells me he only takes his omeprazole once or twice a week. His symptoms sound like possible esophageal spasm/GERD. He has not followed with GI in a few years. Will refer him back to Dr Flores with request that he be evaluated soon. Will arrange for a cardiac reevaluation in 2 months, sooner if needed. Instructed to seek ED care for recurrent symptoms. Signs and symptoms of angina reviewed with him. (2) S/P cardiac cath: Comment: 05/24/2019 LAD minimal luminal irregularities. Other vessels normal Code(s): Z98.890 - Other specified postprocedural states Category: Surgical Plan: as above (3) History of paroxysmal supraventricular tachycardia: Code(s): Z86.79 - Personal history of other diseases of the circulatory system Category: Medical Plan: Episode of SVT during hospital admission for 2020. At that time he was seen in Cardiology consult. He was started on metoprolol however his current med list does not include metoprolol. He is not reported any concerning heart palpitations. (4) Aortic stenosis: Code(s): I35.0 - Nonrheumatic aortic (valve) stenosis Category: Medical Qualifiers: Cardiac valve disease etiology: nonrheumatic Qualified Code(s): I35.0 - Nonrheumatic aortic (valve) stenosis Plan: History of mild aortic stenosis as seen on echocardiogram 12/07/2020. Echocardiogram last May showed moderate aortic stenosis, mean gradient 21 mmHg, aortic valve area 0.92 centimeter sq. Repeat echo done 03/12/24 shows moderate aortic stenosis, mean gradiant 22 mmhg, aortic valve area 1.09 cm sq. Will plan a repeat echo prior to next year. (5) Hyperlipidemia: Code(s): E78.5 - Hyperlipidemia, unspecified Category: Medical Plan: [place] LDL goal < 70 in pt with diabetes. Also has aortic stenosis. Labs done 02/27/24 showed LDL 126. He is not on statin for unclear reason. He is agreeable to start on statin. Will start Atorvastatin 20mg at bedtime. Plan for fasting lipid, LFT next visit. Plan Time spent on chart review, documentation, interview and assessment Orders: Referrals Gastroenterology Referral K21.9 - Gastro-esophageal reflux disease without esophagitis, K22.4 - Dyskinesia of esophagus Medications: New atorvastatin 20 mg PO BEDTIME 30 tabs 5RF Coding Level of Care Code Est Pt Level 4 (54173) Diagnoses Chest discomfort R07.89 S/P cardiac cath Z98.890 History of paroxysmal supraventricular tachycardia Z86.79 Nonrheumatic aortic valve stenosis I35.0 Cardiac valve disease etiology: nonrheumatic Hyperlipidemia E78.5 CPT Codes EKG - CPT: [id number], Complete ([id number]) Time Spent (min) 36
== END 2024-03-26 16:20 | disposition home or self-care (01) ==
PROVIDERS: PCP Internal Medicine; Visit Provider Nurse Practitioner Family
DX: R07.89 Other chest pain (principal); Z98.890 Other specified postprocedural states; Z86.79 Personal history of other diseases of the circulatory system; I35.0 Nonrheumatic aortic (valve) stenosis; E78.5 Hyperlipidemia, unspecified
CPT/HCPCS: 93010; 99214

== ENCOUNTER → 2024-03-26 15:05 | Outpatient (BNVA) | payer MEDICARE, SELFPAY | PROVIDERS: PCP Internal Medicine; Visit Provider Nurse Practitioner Family | DX: R07.89 Other chest pain (principal); I35.0 Nonrheumatic aortic (valve) stenosis; E78.5 Hyperlipidemia, unspecified; Z86.79 Personal history of other diseases of the circulatory system; Z98.890 Other specified postprocedural states | CPT/HCPCS: 93005; 99212 ==

== ENCOUNTER 2024-04-04 09:11 | Outpatient (AMB) | payer MEDICARE, SELFPAY ==
[2024-04-04 09:12] VITALS: BP 142/98; PULSE 72; O2SAT 98; BMI 30.3
--- NOTE | 2024-04-04 09:12 | MHC.PC.OV ---
Vital Signs 04/04/24 09:12 Height 5 ft 8 in Weight 199 lb BMI 30.3 BP 142/98 H Blood Pressure Location Lt brachial Position Sitting Pulse 72 Pulse Source Pulse Oximeter Pulse Oximetry (%) 98 Oxygen Delivery Method Room Air Intake Visit Reasons: 1mth f/u Hvac/R Service Technician: Not Required per policy Accompanied by: Self / Same As Patient Allergies No Known Allergies Allergy (Verified 04/04/24 09:13) Medication List - Last Reconciled 04/05/24 by Jaxon Fuentes MD acetaminophen 650 mg (2 x 325 mg) PO Q6H PRN aluminum hydrox-magnesium carb 254-237.5 mg/5 mL (Gaviscon Extra Strength) 10 mL PO QID atorvastatin 20 mg PO BEDTIME blood sugar diagnostic (FreeStyle Lite Strips) TO CHECK BLOOD SUGARS THREE TIMES A DAY blood-glucose meter (FreeStyle Lite Meter kit) TO CHECK BLOOD SUGARS THREE TIMES A DAY clotrimazole-betamethasone 1-0.05 % 1 appl topical BID 2 weeks finasteride (Proscar) 5 mg PO DAILY gabapentin 100 mg PO BID lancets (FreeStyle Lancets) TO CHECK BLOOD SUGARS THREE TIMES A DAY metformin 1,000 mg PO BID omeprazole 40 mg PO BID tizanidine 4 mg PO Q8H PRN triamcinolone acetonide 0.5% 1 appl topical TID Tobacco use date assessed: 03/13/24 Fall risk assessment: No Falls in past year Last assessed Fall Risk: 04/04/24 Dental Screening Dental Screen Date: 03/13/24 HPI 1mth f/u HPI Details hyperlipidemia on rx; compliant; doing well PFSH Medical History Aortic stenosis Pulmonary emboli DVT (deep venous thrombosis) Bacteremia due to Gram-positive bacteria COVID-19 Diabetes type 2, controlled Chronic GERD Nephrolithiasis BPH loc w urin obs/LUTS Irritable bowel syndrome Surgical History S/P cardiac cath History of colonoscopy History of hand surgery History of kidney stones Family History Father Medical history unknown Mother Medical history unknown Social History Household Members: None Housing: Apartment Do you presently have visiting nurse or other home services: No Alcohol intake: never Comment: sitter in room Patient Tobacco Use Status: Never used Tobacco e-Cigarette/Vaping Use: Never Used Second Hand Smoke Exposure: No Advance Directives Date on File: 12/17/20 service: No Current occupational status: employed 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 Abdulaziz Hopson, Mellissa Booth, Rodríguez Singh and colleagues, with an educational mickie from [employer]. Review of Systems Const Denies chills, Denies headache(s) and Denies weight loss ENT Denies headache(s) Card Denies chest pain, Denies syncope, Denies irregular heart rhythm and Denies dyspnea Resp Denies chest congestion, Denies cough and Denies dyspnea GI Denies abdominal pain, Denies change in stool character, Denies nausea and Denies vomiting Musc Denies deformity and Denies joint swelling Neuro Denies syncope and Denies headache(s) Physical exam (Primary Care) Vital Signs: Last Vital Signs Pulse 72 04/04/24 09:12 BP 142/98 H 04/04/24 09:12 Pulse Ox 98 04/04/24 09:12 Oxygen Delivery Method Room Air 04/04/24 09:12 BMI result Body Mass Index 30.3 Tobacco/Smoking Status: Tobacco use Status Tobacco use date assessed 03/13/24 04/04/24 09:14 Patient Tobacco Use Status Never used Tobacco 04/04/24 09:14 e-Cigarette/Vaping Use Never Used 04/04/24 09:14 Thrive Assessment: Date of Thrive Assessment Date Thrive assessed 03/13/24 04/04/24 09:14 Const General: cooperative, comfortable, no acute distress and alert Neck Neck: Yes no lymphadenopathy Thyroid: Thyroid normal Resp Effort & Inspection: normal respiratory effort Auscultation: clear to auscultation bilaterally Percussion: percussion normal Cardio Jugular venous distension: no JVD Palpation: normal PMI Rate: regular rate Rhythm: regular rhythm Heart sounds: S1 normal heart sound present and S2 normal heart sound present GI Inspection: Yes normal to inspection Palpation (GI): No hepatosplenomegaly present Skin General skin exam: no rashes or lesions noted Extrem General: Yes no clubbing, cyanosis or edema Assessment and Plan Assessment & Plan (1) Hyperlipidemia: Code(s): E78.5 - Hyperlipidemia, unspecified Plan: stable; same rx Orders: Orders Lipid Panel 04/04/24 Z13.220 - Encounter for screening for lipoid disorders Lipid Panel Today Z13.220 - Encounter for screening for lipoid disorders Glucose Fasting Today R73.9 - Hyperglycemia, unspecified Hemoglobin A1c Today R73.9 - Hyperglycemia, unspecified Glucose Fasting 04/04/24 R73.9 - Hyperglycemia, unspecified Hemoglobin A1c 04/04/24 R73.9 - Hyperglycemia, unspecified Medications: New clotrimazole-betamethasone 1-0.05 % 1 appl topical BID 45 grams 0RF 2 weeks Coding Level of Care Code Est Pt Level 3 (19798) Diagnoses Hyperlipidemia E78.5
== END 2024-04-04 09:55 | disposition home or self-care (01) ==
PROVIDERS: PCP Internal Medicine; Visit Provider Internal Medicine
DX: E78.5 Hyperlipidemia, unspecified (principal)
CPT/HCPCS: 99213

== ENCOUNTER 2024-04-08 09:57 | Outpatient (REF) | payer MEDICARE, SELFPAY ==
[2024-04-08 11:10] LABS: Estimated Average Glucose 177 mg/dL; Hemoglobin A1c % 7.8 % (<6.0)
[2024-04-08 11:34] LABS: Cholesterol 132 mg/dL (<200); Glucose Fasting 126 mg/dL (60-99); HDL Cholesterol 42 mg/dL (>40)
[2024-04-08 11:50] LABS: LDL Cholesterol Calculated 70 mg/dL (<100); Triglycerides 102 mg/dL (<150)
[2024-04-08 13:39] LABS: Creatinine Urine 114.24 mg/dL; Microalbum/Creatinine Ratio Ur 16.6 ug/mg cr (<30)
== END 2024-04-08 09:58 | disposition home or self-care (01) ==
LOC: HO.LAB 09:57
PROVIDERS: PCP Internal Medicine; Visit Provider Internal Medicine
DX: R73.9 Hyperglycemia, unspecified (principal); Z13.220 Encounter for screening for lipoid disorders; E11.69 Type 2 diabetes mellitus with other specified complication; E66.01 Morbid (severe) obesity due to excess calories
CPT/HCPCS: 36415; 80061; 82043; 82570; 82947; 83036

== ENCOUNTER 2024-05-21 09:50 | Outpatient (AMB) | payer MEDICARE, SELFPAY ==
[2024-05-21 09:51] VITALS: BP 124/82; PULSE 96; BMI 29.3
--- NOTE | 2024-05-21 09:51 | A.OFFVIS_ITS ---
Vital Signs 05/21/24 09:51 Height 5 ft 8 in Weight 192 lb 10.944 oz BMI 29.3 BP 124/82 Blood Pressure Location Lt brachial Position Sitting Pulse 96 Pulse Source Pulse Oximeter Intake Visit Reasons: 2mth f/up Clothes Model Required: No Allergies No Known Allergies Allergy (Verified 05/21/24 09:54) Medication List - Last Reconciled 05/21/24 by WEN Paul acetaminophen 650 mg (2 x 325 mg) PO Q6H PRN aluminum hydrox-magnesium carb 254-237.5 mg/5 mL (Gaviscon Extra Strength) 10 mL PO QID atorvastatin 20 mg PO BEDTIME blood sugar diagnostic (FreeStyle Lite Strips) TO CHECK BLOOD SUGARS THREE TIMES A DAY blood-glucose meter (FreeStyle Lite Meter kit) TO CHECK BLOOD SUGARS THREE TIMES A DAY clotrimazole-betamethasone 1-0.05 % 1 appl topical BID 2 weeks finasteride (Proscar) 5 mg PO DAILY gabapentin 100 mg PO BID lancets (FreeStyle Lancets) TO CHECK BLOOD SUGARS THREE TIMES A DAY metformin 1,000 mg PO BID omeprazole 40 mg PO BID tizanidine 4 mg PO Q8H PRN triamcinolone acetonide 0.5% 1 appl topical TID HPI HPI 2mth f/up: Details: Mariposa is a 74 yo male with PMH of DM, HTN, moderate aortic stenosis, minimal nonobstructive CAD on cath 2018, SVT episode 2020 and was started on metoprolol who reported episodes chest tightness when laying down on last visit. His descrition was more like esophageal spasm/ GERD and he was instructed to t freeman his omeprazole daily. He was referred back to Dr Flores and he now presents for follow up. Today he reports that since his last visit he has not had any recurrent episodes of the chest tightness when laying down. Previously had describe 4 episodes in the last year, that occurred when laying down and wake. The last episode lasted 15-20 minutes and he says he felt like he was going to . Each episode has gone away gradually without specific treatment. He has history of GERD and admits to eating spicy foods. He was not taking his omeprazole consistently. Now that he is taking the omeprazole daily he has not had any recurrent episodes. He is still waiting for his GI appointment. He believes it is in August. 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 He has not had any chest tightness when doing physical activity or when in an upright position. He does not feel that certain food affect his condition. He denies shortness of breath, palpitations, presyncope, syncope, falls, PND, orthopnea or edema. He has notice some mild lightheadedness when changing position sitting to standing. He admits that he does not drink much liquids. [facility] Medical History Aortic stenosis Pulmonary emboli DVT (deep venous thrombosis) Bacteremia due to Gram-positive bacteria COVID-19 Diabetes type 2, controlled Chronic GERD Nephrolithiasis BPH loc w urin obs/LUTS Irritable bowel syndrome Surgical History S/P cardiac cath History of colonoscopy History of hand surgery History of kidney stones Family History Father Medical history unknown Mother Medical history unknown Social History Household Members: None Housing: Apartment Do you presently have visiting nurse or other home services: No Alcohol intake: never Comment: sitter in room Patient Tobacco Use Status: Never used Tobacco e-Cigarette/Vaping Use: Never Used Second Hand Smoke Exposure: No Advance Directives Date on File: 12/17/20 service: No Current occupational status: employed 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 Current occupational exposures/hazards: No Cognitive needs: No Hearing needs: No Vision needs: No Review of Systems Const All systems reviewed & are unremarkable except as noted in HPI and below ENT Reports dizziness Card Denies chest pain, Denies chest pain at rest, Denies chest pain with activity, Denies rapid heart rate, Denies pedal edema, Denies edema, Denies leg edema, Denies lightheadedness, Denies palpitations, Denies dyspnea, Denies dyspnea on exertion and Denies orthopnea Resp Denies cough, Denies dyspnea and Denies dyspnea on exertion GI Denies hematochezia and Denies change in stool character Musc Denies abnormal gait, Denies limited range of motion, Denies muscle cramps, Denies muscle weakness, Denies numbness, Denies radiating pain into limb, Denies stiffness and Denies tingling Neuro Denies abnormal gait, Reports dizziness, Denies numbness and Denies tingling Endo Denies palpitations Physical Exam Vital Signs: Last Vital Signs Pulse 96 05/21/24 09:51 BP 124/82 05/21/24 09:51 BMI result Body Mass Index 29.3 Const General: cooperative, healthy appearing, comfortable and no acute distress Orientation/consciousness: patient oriented x3 Neck Neck: Yes normal visual inspection and Yes no JVD Resp Effort & Inspection: normal respiratory effort Auscultation: clear to auscultation bilaterally, no crackles, no rales, no rhonchi and no wheezes Cardio Jugular venous distension: no JVD Rate: regular rate Rhythm: regular rhythm Heart sounds: S2 normal heart sound present, Murmur heart sound present (systolic, 3/6 left sternal border, second heart sound audible) and no rubs Peripheral pulses: Peripheral pulses 2+ throughout Neuro General: patient oriented x3 Extrem General: Yes normal to inspection, No no pedal edema and No calf tenderness Psych Appearance: grossly normal Mental Status: mental status grossly normal Speech and movement: Normal speech and movement present Assessment & Plan Assessment & Plan (1) Chest discomfort: Code(s): R07.89 - Other chest pain Category: Medical Plan: Patient describes 4 episodes, in the last year, of tightness across his chest and into his shoulders with diaphoresis, each that has occurred with him in a laying down position. Symptoms have random occurrence and resolve gradually without treatment. He has not had symptoms in an upright position or with physical activity. This description is concerning yet atypical for ischemia. He has a known history of minimal nonbstructive CAD on cardiac cath 05/24/2019. He has cardiac risk factors of age, HTN, DM. For his symptom of chest tightness, he underwent Echocardiogram on 06/07/2023 showing EF 60-65%, impaired relaxation, no reported regional wall motion abnormality, moderate aortic stenosis. A nuclear stress test done 06/08/2023 showing normal myocardial perfusion imaging. Since his had progressed, he underwent a repeat echo on 03/12/24 showing EF 64%, no regional wall motion abnormality, moderate aortic stenosis. EKG done last visit shows SR, 1st degree AVB, no acute ST/ T wave abnormalities. On last visit he was instructed to take his omeprazole daily. He had not been taking it consistently prior to that time. Since then he has not had any recurrent episodes of the chest tightness in a laying down position. He has no daytime or upright chest symptoms. At present there is no clear cardiac findings that account for his symptom. He was referred back to GI and has an appointment with Dr. Flores in a few months. He does have a history of GERD, eats spicy foods. Suggested he cut down on the spaces in his foods. Reviewed that his symptoms sounds more like esophageal spasm/GERD. Will forward this note to Dr. Flores. Instructed to seek ED care if he has further concerning symptoms. Signs and symptoms of angina reviewed with him. (2) S/P cardiac cath: Comment: 05/24/2019 LAD minimal luminal irregularities. Other vessels normal Code(s): Z98.890 - Other specified postprocedural states Category: Surgical Plan: as above (3) History of paroxysmal supraventricular tachycardia: Code(s): Z86.79 - Personal history of other diseases of the circulatory system Category: Medical Plan: Episode of SVT during hospital admission for 2020. At that time he was seen in Cardiology consult. He was started on metoprolol however his current med list does not include metoprolol. He is not reported any concerning heart palpitations. (4) Aortic stenosis: Code(s): I35.0 - Nonrheumatic aortic (valve) stenosis Category: Medical Qualifiers: Cardiac valve disease etiology: nonrheumatic Qualified Code(s): I35.0 - Nonrheumatic aortic (valve) stenosis Plan: History of mild aortic stenosis as seen on echocardiogram 12/07/2020. Echocardiogram last May showed moderate aortic stenosis, mean gradient 21 mmHg, aortic valve area 0.92 centimeter sq. Repeat echo done 03/12/24 shows moderate aortic stenosis, mean gradiant 22 mmhg, aortic valve area 1.09 cm sq. Will plan a repeat echo January 2025. Cardiology follow-up once test results are available. (5) Hyperlipidemia: Code(s): E78.5 - Hyperlipidemia, unspecified Category: Medical Plan: [place] LDL goal < 70 in pt with diabetes. Also has aortic stenosis. Labs done 02/27/24 showed LDL 126. He is not on statin for unclear reason. He is agreeable to start on statin. Will start Atorvastatin 20mg at bedtime. Labs have been ordered by his PCP. Plan Time spent on chart review, documentation, interview and assessment Orders: Orders CA echo transthoracic complete 01/13/25 I35.0 - Nonrheumatic aortic (valve) stenosis Coding Level of Care Code Est Pt Level 4 (73819) Diagnoses Chest discomfort R07.89 S/P cardiac cath Z98.890 History of paroxysmal supraventricular tachycardia Z86.79 Nonrheumatic aortic valve stenosis I35.0 Cardiac valve disease etiology: nonrheumatic Hyperlipidemia E78.5 Time Spent (min) 28
== END 2024-05-21 10:31 | disposition home or self-care (01) ==
PROVIDERS: PCP Internal Medicine; Visit Provider Nurse Practitioner Family
DX: R07.89 Other chest pain (principal); Z98.890 Other specified postprocedural states; Z86.79 Personal history of other diseases of the circulatory system; I35.0 Nonrheumatic aortic (valve) stenosis; E78.5 Hyperlipidemia, unspecified
CPT/HCPCS: 99214

== ENCOUNTER → 2024-05-21 09:50 | Outpatient (BNVA) | payer MEDICARE, SELFPAY | PROVIDERS: PCP Internal Medicine; Visit Provider Nurse Practitioner Family | DX: R07.89 Other chest pain (principal); E78.5 Hyperlipidemia, unspecified; Z86.79 Personal history of other diseases of the circulatory system; Z98.890 Other specified postprocedural states | CPT/HCPCS: 99212 ==

== ENCOUNTER 2024-06-11 09:45 | Outpatient (REF) | payer MEDICARE, SELFPAY ==
[2024-06-11 10:49] LABS: MANUAL DIFF FLAG NO
[2024-06-11 11:48] LABS: Basophils Absolute Auto 0.1 X10*3/uL (0.0-0.2); Basophils Percent Auto 0.5 % (0-2); Eosinophils Absolute Auto 0.1 X10*3/uL (0.0-0.4); Eosinophils Percent Auto 0.9 % (0-4); Hematocrit 40.7 % (42.0-52.0); Hemoglobin 13.4 g/dl (14.0-18.0); Imm Gran Abs Auto 0.03 X10*3/uL (0.00-0.03); Imm Gran Pct Auto 0.3 % (0.0-0.4); Lymphocytes Absolute Auto 3.7 X10*3/uL (1.2-4.9); Lymphocytes Percent Auto 37.6 % (20-40); Mean Corpuscular HGB Conc 32.9 g/dl (31.0-36.0); Mean Corpuscular Hemoglobin 29.1 pg (27.0-33.0); Mean Corpuscular Volume 88.5 fL (80.0-98.0); Mean Platelet Volume 10.2 fL (9.4-12.4); Monocytes Absolute Auto 0.5 X10*3/uL (0.1-1.2); Monocytes Percent Auto 5.3 % (2-11); Neutrophils Absolute Auto 5.4 x10*3/uL (2.0-8.3); Neutrophils Percent Auto 55.4 % (45-73); Platelet Count 231 X10*3/uL (160-400); Red Cell Distribution Width 13.5 % (11.0-16.0); White Blood Count 9.7 X10*3/uL (4.8-10.8)
[2024-06-11 12:19] LABS: Creatinine Urine 110.29 mg/dL; Microalbum/Creatinine Ratio Ur 10.8 ug/mg cr (<30)
[2024-06-11 12:19] LABS: Alanine Aminotransferase 13 U/L (0-40); Albumin Level 4.2 g/dL (3.5-5.0); Alkaline Phosphatase 72 U/L (39-117); Anion Gap 14 (12-20); Aspartate Amino Transferase 14 U/L (5-37); Bilirubin Total 0.7 mg/dL (0.0-1.0); Blood Urea Nitrogen 16 mg/dL (9-16); Calcium 9.3 mg/dL (8.4-10.2); Carbon Dioxide 21 mmol/L (22-29); Chloride 107 mmol/L (96-108); Cholesterol 188 mg/dL (<200); Estimated Glomerular Filt Rate > 60; Glucose Fasting 142 mg/dL (60-99); HDL Cholesterol 42 mg/dL (>40); LDL Cholesterol Calculated 130 mg/dL (<100); Potassium 3.9 mmol/L (3.3-5.1); Sodium 138 mmol/L (135-145); Total Protein 7.8 g/dL (6.5-8.0); Triglycerides 81 mg/dL (<150)
[2024-06-11 12:34] LABS: Thyroid Stimulating Hormone 0.73 uIU/mL (0.32-4.0)
== END 2024-06-11 09:46 | disposition home or self-care (01) ==
LOC: HO.LAB 09:45
PROVIDERS: PCP Internal Medicine; Visit Provider Internal Medicine
DX: E11.69 Type 2 diabetes mellitus with other specified complication (principal); I10 Essential (primary) hypertension; E66.01 Morbid (severe) obesity due to excess calories; Z13.220 Encounter for screening for lipoid disorders; Z13.0 Encounter for screening for diseases of the blood and blood-forming organs and certain disorders involving the immune mechanism; Z13.29 Encounter for screening for other suspected endocrine disorder
CPT/HCPCS: 36415; 80053; 80061; 82043; 82570; 84443; 85025; 99212

== ENCOUNTER 2024-06-11 09:45 | Outpatient (AMB) | payer MEDICARE, SELFPAY ==
[2024-06-11 09:49] VITALS: BP 140/72; PULSE 85; O2SAT 96; BMI 29.0
--- NOTE | 2024-06-11 09:49 | MHC.PC.OV ---
Vital Signs 06/11/24 09:49 Height 5 ft 8 in Weight 191 lb BMI 29.0 BP 140/72 H Blood Pressure Location Lt brachial Position Sitting Pulse 85 Pulse Source Pulse Oximeter Pulse Oximetry (%) 96 Oxygen Delivery Method Room Air Intake Visit Reasons: 1mth f/u - see comments Bow Maker Custom Required: No Accompanied by: Self / Same As Patient Allergies No Known Allergies Allergy (Verified 06/11/24 09:51) Medication List - Last Reconciled 06/11/24 by Jaxon Fuentes MD acetaminophen 650 mg (2 x 325 mg) PO Q6H PRN aluminum hydrox-magnesium carb 254-237.5 mg/5 mL (Gaviscon Extra Strength) 10 mL PO QID atorvastatin 20 mg PO BEDTIME blood sugar diagnostic (FreeStyle Lite Strips) TO CHECK BLOOD SUGARS THREE TIMES A DAY blood-glucose meter (FreeStyle Lite Meter kit) TO CHECK BLOOD SUGARS THREE TIMES A DAY clotrimazole-betamethasone 1-0.05 % 1 appl topical BID 2 weeks finasteride (Proscar) 5 mg PO DAILY gabapentin 100 mg PO BID lancets (FreeStyle Lancets) TO CHECK BLOOD SUGARS THREE TIMES A DAY metformin 1,000 mg PO BID omeprazole 40 mg PO BID tizanidine 4 mg PO Q8H PRN triamcinolone acetonide 0.5% 1 appl topical TID Tobacco use date assessed: 03/13/24 Fall risk assessment: No Falls in past year (Sometimes feels dizzy like he is going to fall but doesn't) Last assessed Fall Risk: 06/11/24 Dental Screening Dental Screen Date: 03/13/24 HPI 1mth f/u - see comments HPI Details hyperlipidemia on rx; doing well and compliant [facility] Medical History Aortic stenosis Pulmonary emboli DVT (deep venous thrombosis) Bacteremia due to Gram-positive bacteria COVID-19 Diabetes type 2, controlled Chronic GERD Nephrolithiasis BPH loc w urin obs/LUTS Irritable bowel syndrome Surgical History S/P cardiac cath History of colonoscopy History of hand surgery History of kidney stones Family History Father Medical history unknown Mother Medical history unknown Social History Household Members: None Housing: Apartment Do you presently have visiting nurse or other home services: No Alcohol intake: never Comment: sitter in room Patient Tobacco Use Status: Never used Tobacco Tobacco use type: Cigarette e-Cigarette/Vaping Use: Never Used Second Hand Smoke Exposure: No Advance Directives Date on File: 12/17/20 service: No 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 1. Little interest or pleasure in doing things: not at all 2. Feeling down, depressed, or hopeless: not at all 3. Trouble falling or staying asleep, or sleeping too much: not at all 4. Feeling tired or having little energy: not at all 5. Poor appetite or overeating: not at all 6. Feeling bad about yourself - or that you are a failure or have let yourself or your family down: not at all 7. Trouble concentrating on things, such as reading the newspaper or watching television: not at all 8. Moving or speaking so slowly that other people could have noticed. Or the opposite - being so fidgety or restless that you have been moving around a lot more than usual: not at all 9. Thoughts that you would be better off or of hurting yourself in some way: not at all Total score: 0 Depression Screening Interpretation: Negative Depression Screening Done: Yes 47194 - PHQ-9 Billing: Yes Source: Developed by Drs. Abdulaziz Hopson, Mellissa Booth, Rodríugez Singh and colleagues, with an educational mickie from [employer]. Thrive Questionnaire Date Thrive assessed: 03/13/24 Are you currently unemployed and looking for a job?: Yes AUDIT C Alcohol Use Questionnaire (AUDIT-C) 1. How often do you have a drink containing alcohol?: Never 3. How often do you have six or more drinks on one occasion?: Never Total Score: 0 Score Reviewed/Action Taken: Yes SIXTO-7 AMB Questionnaire SIXTO-7 Date SIXTO - 7 assessed: 03/13/24 Source: Developed by Drs. Abdulaziz Hopson, Mellissa Booth, Rodríguez Singh and colleagues, with an educational mickie from [employer]. Review of Systems Const Denies chills, Denies headache(s) and Denies weight loss ENT Denies headache(s) Card Denies chest pain, Denies syncope, Denies irregular heart rhythm and Denies dyspnea Resp Denies chest congestion, Denies cough and Denies dyspnea GI Denies abdominal pain, Denies change in stool character, Denies nausea and Denies vomiting Musc Denies deformity and Denies joint swelling Neuro Denies syncope and Denies headache(s) Physical exam (Primary Care) Vital Signs: Last Vital Signs Pulse 85 06/11/24 09:49 BP 140/72 H 06/11/24 09:49 Pulse Ox 96 06/11/24 09:49 Oxygen Delivery Method Room Air 06/11/24 09:49 BMI result Body Mass Index 29.0 Tobacco/Smoking Status: Tobacco use Status Tobacco use date assessed 03/13/24 06/11/24 09:55 Patient Tobacco Use Status Never used Tobacco 06/11/24 09:55 Tobacco use type Cigarette 06/11/24 09:55 e-Cigarette/Vaping Use Never Used 06/11/24 09:55 PHQ-9: PHQ-9 Score PHQ-9: Total score 0 06/11/24 09:55 Depression Screening Interpretation: Negative Thrive Assessment: Date of Thrive Assessment Date Thrive assessed 03/13/24 06/11/24 09:55 Const General: cooperative, comfortable, no acute distress and alert Neck Neck: Yes no lymphadenopathy Thyroid: Thyroid normal Resp Effort & Inspection: normal respiratory effort Auscultation: clear to auscultation bilaterally Percussion: percussion normal Cardio Jugular venous distension: no JVD Palpation: normal PMI Rate: regular rate Rhythm: regular rhythm Heart sounds: S1 normal heart sound present and S2 normal heart sound present GI Inspection: Yes normal to inspection Palpation (GI): No hepatosplenomegaly present Skin General skin exam: no rashes or lesions noted Extrem General: Yes no clubbing, cyanosis or edema Coding Level of Care Code Est Pt Level 3 (17334) Diagnoses Hypertension I10 Assessment & Plan Assessment & Plan (1) Hypertension: Code(s): I10 - Essential (primary) hypertension Category: Medical Plan: stable; same rx Orders: Orders Lipid Panel Today Z13.220 - Encounter for screening for lipoid disorders Comprehensive [place]. Panel Fast Today Z13.9 - Encounter for screening, unspecified Complete Blood Count Auto Diff Today Z13.0 - Encounter for screening for diseases of the blood and blood-forming organs and certain disorders involving the immune mechanism Thyroid Stimulating Hormone Today Z13.29 - Encounter for screening for other suspected endocrine disorder Microalbumin, Random (w Creat) Today E11.69 - Type 2 diabetes mellitus with other specified complication, E66.01 - Morbid (severe) obesity due to excess calories
== END 2024-06-11 10:20 | disposition home or self-care (01) ==
PROVIDERS: PCP Internal Medicine; Visit Provider Internal Medicine
DX: I10 Essential (primary) hypertension (principal)

== ENCOUNTER 2024-09-12 11:47 | Outpatient (AMB) | payer MEDICARE, SELFPAY ==
--- NOTE | 2024-09-12 11:50 | A.OFFPC_ITS ---
Vital Signs 09/12/24 11:51 Height 5 ft 8 in Weight 193 lb BMI 29.3 BP 162/84 H Blood Pressure Location Lt brachial Position Sitting Pulse 65 Pulse Source Pulse Oximeter Pulse Oximetry (%) 100 Oxygen Delivery Method Room Air Intake Visit Reasons: 4 mo f/u Hand Cigar Maker Required: No Accompanied by: Son Allergies No Known Allergies Allergy (Verified 09/12/24 11:58) Medication List - Last Reconciled 09/13/24 by Jaxon Fuentes MD acetaminophen 650 mg (2 x 325 mg) PO Q6H PRN aluminum hydrox-magnesium carb 254-237.5 mg/5 mL (Gaviscon Extra Strength) 10 mL PO QID atorvastatin 20 mg PO BEDTIME blood sugar diagnostic (FreeStyle Lite Strips) TO CHECK BLOOD SUGar once a day blood-glucose meter (FreeStyle Lite Meter kit) TO CHECK BLOOD SUGARS THREE TIMES A DAY clotrimazole-betamethasone 1-0.05 % 1 appl topical BID 2 weeks finasteride (Proscar) 5 mg PO DAILY gabapentin 100 mg PO BID lancets (FreeStyle Lancets) TO CHECK BLOOD SUGARS THREE TIMES A DAY metformin 1,000 mg PO BID omeprazole 40 mg PO BID tizanidine 4 mg PO Q8H PRN triamcinolone acetonide 0.5% 1 appl topical TID Tobacco use date assessed: 03/13/24 Fall risk assessment: No Falls in past year Last assessed Fall Risk: 09/12/24 Dental Screening Dental Screen Date: 03/13/24 HPI 4 mo f/u HPI Details DM in poor control; dietary indiscretion PFSH Medical History Aortic stenosis Pulmonary emboli DVT (deep venous thrombosis) Bacteremia due to Gram-positive bacteria COVID-19 Diabetes type 2, controlled Chronic GERD Nephrolithiasis BPH loc w urin obs/LUTS Irritable bowel syndrome Surgical History S/P cardiac cath History of colonoscopy History of hand surgery History of kidney stones Family History Father Medical history unknown Mother Medical history unknown Social History Household Members: None Housing: Apartment Do you presently have visiting nurse or other home services: No Alcohol intake: never Comment: sitter in room Patient Tobacco Use Status: Never used Tobacco Tobacco use type: Cigarette e-Cigarette/Vaping Use: Never Used Second Hand Smoke Exposure: No Advance Directives Date on File: 12/17/20 service: No 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 1. Little interest or pleasure in doing things: not at all 2. Feeling down, depressed, or hopeless: not at all 3. Trouble falling or staying asleep, or sleeping too much: not at all 4. Feeling tired or having little energy: not at all 5. Poor appetite or overeating: not at all 6. Feeling bad about yourself - or that you are a failure or have let yourself or your family down: not at all 7. Trouble concentrating on things, such as reading the newspaper or watching television: not at all 8. Moving or speaking so slowly that other people could have noticed. Or the opposite - being so fidgety or restless that you have been moving around a lot more than usual: not at all 9. Thoughts that you would be better off or of hurting yourself in some way: not at all Total score: 0 Depression Screening Interpretation: Negative Depression Screening Done: Yes 98722 - PHQ-9 Billing: Yes Source: Developed by Drs. Abdulaziz Hopson, Mellissa Booth, Rodríguez Singh and colleagues, with an educational mickie from [employer]. Thrive Questionnaire Date Thrive assessed: 09/12/24 I am a: Patient What is your living situation today?: I have a steady place to live Within the past 12 months, did the food you bought not last and you didn't have the money to get more?: Never true Within the past 12 months, did you worry whether your food would run out before you got money to buy more?: Never true Do you have trouble paying for medicines?: No Do you have trouble getting transportation to medical appointments?: No Do you have trouble paying your heating and electricity bill?: No Do you have trouble taking care of your child, family member or friend?: No Do you have trouble with day-to-day activities such as bathing, preparing meals, shopping, managing finances, etc.?: No Are you currently unemployed and looking for a job?: No Are you interested in more education?: No Currently or been in a relationship where the following occur: No concerns reported THRIVE Score: 0 AUDIT C Alcohol Use Questionnaire (AUDIT-C) 1. How often do you have a drink containing alcohol?: Never 3. How often do you have six or more drinks on one occasion?: Never Total Score: 0 Score Reviewed/Action Taken: Yes SIXTO-7 AMB Questionnaire SIXTO-7 Date SIXTO - 7 assessed: 09/12/24 Feeling nervous, anxious, or on edge: 0 = Not at all Not being able to stop or control worryin = Not at all Worrying too much about different things: 0 = Not at all Trouble relaxin = Not at all Being so restless that it is hard to sit still: 0 = Not at all Becoming easily annoyed or irritable: 0 = Not at all Feeling afraid as if something awful might happen: 0 = Not at all Total SIXTO-7 score (0-4 normal; 5-9 mild; 10-14 moderate; 15-21 severe): 0 Source: Developed by Drs. Abdulaziz Hopson, Mellissa Booth, Rodríguez Singh and colleagues, with an educational mickie from [employer]. SIXTO-7 Assessment Billing SIXTO-7 Assessment Tool: SIXTO-7 Assessment 84628 Review of Systems Const Denies chills, Denies headache(s) and Denies weight loss ENT Denies headache(s) Card Denies chest pain, Denies syncope, Denies irregular heart rhythm and Denies dyspnea Resp Denies chest congestion, Denies cough and Denies dyspnea GI Denies abdominal pain, Denies change in stool character, Denies nausea and Denies vomiting Musc Denies deformity and Denies joint swelling Neuro Denies syncope and Denies headache(s) Physical exam (Primary Care) Vital Signs: Last Vital Signs Pulse 65 09/12/24 11:51 BP 162/84 H 09/12/24 11:51 Pulse Ox 100 09/12/24 11:51 Oxygen Delivery Method Room Air 09/12/24 11:51 BMI result Body Mass Index 29.3 Tobacco/Smoking Status: Tobacco use Status Tobacco use date assessed 03/13/24 09/12/24 11:52 Patient Tobacco Use Status Never used Tobacco 09/12/24 11:52 Tobacco use type Cigarette 09/12/24 11:52 e-Cigarette/Vaping Use Never Used 09/12/24 11:52 PHQ-9: PHQ-9 Score PHQ-9: Total score 0 09/12/24 12:19 Depression Screening Interpretation: Negative Thrive Assessment: Date of Thrive Assessment Date Thrive assessed 09/12/24 09/12/24 11:55 Currently or been in a relationship where the following occur: No concerns reported Const General: cooperative, comfortable, no acute distress and alert Neck Neck: Yes no lymphadenopathy Thyroid: Thyroid normal Resp Effort & Inspection: normal respiratory effort Auscultation: clear to auscultation bilaterally Percussion: percussion normal Cardio Jugular venous distension: no JVD Palpation: normal PMI Rate: regular rate Rhythm: regular rhythm Heart sounds: S1 normal heart sound present and S2 normal heart sound present GI Inspection: Yes normal to inspection Palpation (GI): No hepatosplenomegaly present Skin General skin exam: no rashes or lesions noted Extrem General: Yes no clubbing, cyanosis or edema Coding Level of Care Code Est Pt Level 3 (67905) Diagnoses Type 2 diabetes mellitus with obesity E11.69; E66.9 Additional Codes SIXTO-7 Assessment Billing - SIXTO-7 Assessment Tool: SIXTO-7 Assessment 57753 ([id number]) PHQ-9 - 42562 - PHQ-9 Billing: Yes ([id number]) Assessment & Plan Assessment & Plan (1) Type 2 diabetes mellitus with obesity: Code(s): E11.69 - Type 2 diabetes mellitus with other specified complication; E66.9 - Obesity, unspecified Category: Medical Plan: improve diet; same rx Orders: Orders AMB Hemoglobin A1c 09/12/24 E11.9 - Type 2 diabetes mellitus without complications Lipid Panel Today Z13.220 - Encounter for screening for lipoid disorders Complete Blood Count Auto Diff Today Z13.0 - Encounter for screening for diseases of the blood and blood-forming organs and certain disorders involving the immune mechanism Hemoglobin A1c Today R73.9 - Hyperglycemia, unspecified Comprehensive [place]. Panel Fast Today Z13.9 - Encounter for screening, unspecified
[2024-09-12 11:51] VITALS: BP 162/84; PULSE 65; O2SAT 100; BMI 29.3
== END 2024-09-12 12:25 | disposition home or self-care (01) ==
PROVIDERS: PCP Internal Medicine; Visit Provider Internal Medicine
DX: E11.69 Type 2 diabetes mellitus with other specified complication (principal); E66.9 Obesity, unspecified; Z68.29 Body mass index [BMI] 29.0-29.9, adult

== ENCOUNTER 2024-11-21 09:41 | Outpatient (AMB) | payer MEDICARE, SELFPAY ==
--- NOTE | 2024-11-21 09:47 | MHC.OFFVIS ---
Vital Signs 11/21/24 09:48 Height 5 ft 8 in Weight 186 lb 15.232 oz BMI 28.4 BP 138/70 Blood Pressure Location Rt brachial Position Sitting Pulse 66 Intake Visit Reasons: pre-op colonoscopy Medical Laboratory Technical Officer Required: No Rehab Director Occupational Therapist: Rehab Director Occupational Therapist Present Allergies No Known Allergies Allergy (Verified 11/21/24 09:53) Medication List - Last Reconciled 11/21/24 by WEN Paul acetaminophen 650 mg (2 x 325 mg) PO Q6H PRN aluminum hydrox-magnesium carb 254-237.5 mg/5 mL (Gaviscon Extra Strength) 10 mL PO QID atorvastatin 20 mg PO BEDTIME blood sugar diagnostic (FreeStyle Lite Strips) TO CHECK BLOOD SUGar once a day blood-glucose meter (FreeStyle Lite Meter kit) TO CHECK BLOOD SUGARS THREE TIMES A DAY clotrimazole-betamethasone 1-0.05 % 1 appl topical BID 2 weeks gabapentin 100 mg PO BID lancets (FreeStyle Lancets) TO CHECK BLOOD SUGARS THREE TIMES A DAY metformin 1,000 mg PO BID omeprazole 40 mg PO BID tizanidine 4 mg PO Q8H PRN triamcinolone acetonide 0.5% 1 appl topical TID HPI HPI pre-op colonoscopy : Details: Mariposa is a 74 yo male with PMH of DM, HTN, moderate aortic stenosis, minimal nonobstructive CAD on cath 2018, SVT episode 2020 and was started on metoprolol who presents for follow-up and preop cardiovascular clearance for endoscopy. Today he reports that he is 2 weeks into a 1 month fast. He does not eat for 13 hours then is able to have some food intake. He says since doing the fast, after he eats he is noticing some pressure in his mid to left chest region. This symptom is the same as what he was previously reporting. He has no known alleviating factors. He says the symptom gradually goes away on its own. He is not getting this discomfort at any other time except after eating. 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 He has history of GERD and still admits to eating spicy foods. He says he is taking his omeprazole. He denies shortness of breath, palpitations, presyncope, syncope, falls, PND, orthopnea or edema. his son is present. [facility] Medical History Aortic stenosis Pulmonary emboli DVT (deep venous thrombosis) Bacteremia due to Gram-positive bacteria COVID-19 Diabetes type 2, controlled Chronic GERD Nephrolithiasis BPH loc w urin obs/LUTS Irritable bowel syndrome Surgical History S/P cardiac cath History of colonoscopy History of hand surgery History of kidney stones Family History Father Medical history unknown Mother Medical history unknown Social History Household Members: None Housing: Apartment Do you presently have visiting nurse or other home services: No Alcohol intake: never Comment: sitter in room Patient Tobacco Use Status: Never used Tobacco Tobacco use type: Cigarette e-Cigarette/Vaping Use: Never Used Second Hand Smoke Exposure: No Advance Directives Date on File: 12/17/20 service: No Current occupational status: employed 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 Current occupational exposures/hazards: No Cognitive needs: No Hearing needs: No Vision needs: No Review of Systems Const All systems reviewed & are unremarkable except as noted in HPI and below ENT Denies dizziness Card Reports chest pain (after eating), Denies chest pain at rest, Denies chest pain with activity, Denies rapid heart rate, Denies pedal edema, Denies edema, Denies leg edema, Denies lightheadedness, Denies palpitations, Denies dyspnea, Denies dyspnea on exertion and Denies orthopnea Resp Denies cough, Denies dyspnea and Denies dyspnea on exertion GI Denies hematochezia and Denies change in stool character Musc Denies abnormal gait, Denies limited range of motion, Denies muscle cramps, Denies muscle weakness, Denies numbness, Denies radiating pain into limb, Denies stiffness and Denies tingling Neuro Denies abnormal gait, Denies dizziness, Denies numbness and Denies tingling Endo Denies palpitations Physical Exam Vital Signs: Last Vital Signs Pulse 66 11/21/24 09:48 BP 138/70 11/21/24 09:48 BMI result Body Mass Index 28.4 Const General: cooperative, healthy appearing, comfortable and no acute distress Orientation/consciousness: patient oriented x3 Neck Neck: Yes normal visual inspection and Yes no JVD Resp Effort & Inspection: normal respiratory effort Auscultation: clear to auscultation bilaterally, no crackles, no rales, no rhonchi and no wheezes Cardio Jugular venous distension: no JVD Rate: regular rate Rhythm: regular rhythm Heart sounds: S2 normal heart sound present, Murmur heart sound present (systolic, 3/6 left sternal border, second heart sound audible) and no rubs Peripheral pulses: Peripheral pulses 2+ throughout Neuro General: patient oriented x3 Extrem General: Yes normal to inspection, No no pedal edema and No calf tenderness Psych Appearance: grossly normal Mental Status: mental status grossly normal Speech and movement: Normal speech and movement present Office Procedures EKG Details: Today read by me SR, 1st degree avb, minimal voltage criteria for LVH, rate 66, some artifact on tracing. [id number], Complete Assessment & Plan Assessment & Plan (1) Chest discomfort: Code(s): R07.89 - Other chest pain Category: Medical Plan: On prior visit he described 4 episodes, in the last year, of tightness across his chest and into his shoulders with diaphoresis, each that has occurred with him in a laying down position. Symptoms have random occurrence and resolve gradually without treatment. He has not had symptoms in an upright position or with physical activity. He has a known history of minimal nonbstructive CAD on cardiac cath 05/24/2019. He has cardiac risk factors of age, HTN, DM. For his symptom of chest tightness, he underwent Echocardiogram on 06/07/2023 showing EF 60-65%, impaired relaxation, no reported regional wall motion abnormality, moderate aortic stenosis. A nuclear stress test done 06/08/2023 showing normal myocardial perfusion imaging. Since his had progressed, he underwent a repeat echo on 03/12/24 showing EF 64%, no regional wall motion abnormality, moderate aortic stenosis. Today he reports mid to left chest pressure after eating while doing a fast. EKG today shows no ischemic findings. His discomfort still sounds atypical since he only getting it after eating. He was previously thought to hve esophageal issues and has been on Omeprazol. He is currently preop for endoscopy. Will update his echo prior to his procedure. Signs and symptoms of angina reviewed with him. Emergency care if ever needed for symptoms, Cardiology follow up in 3 mo, sooner if needed (2) S/P cardiac cath: Comment: 05/24/2019 LAD minimal luminal irregularities. Other vessels normal Code(s): Z98.890 - Other specified postprocedural states Category: Surgical Plan: as above (3) History of paroxysmal supraventricular tachycardia: Code(s): Z86.79 - Personal history of other diseases of the circulatory system Category: Medical Plan: Episode of SVT during hospital admission for 2020. At that time he was seen in Cardiology consult. He was started on metoprolol however his current med list does not include metoprolol. He is not reported any concerning heart palpitations. (4) Aortic stenosis: Code(s): I35.0 - Nonrheumatic aortic (valve) stenosis Category: Medical Qualifiers: Cardiac valve disease etiology: nonrheumatic Qualified Code(s): I35.0 - Nonrheumatic aortic (valve) stenosis Plan: History of mild aortic stenosis as seen on echocardiogram 12/07/2020. Echocardiogram last May showed moderate aortic stenosis, mean gradient 21 mmHg, aortic valve area 0.92 centimeter sq. Repeat echo done 03/12/24 shows moderate aortic stenosis, mean gradiant 22 mmhg, aortic valve area 1.09 cm sq. Since he is preop and having atypical chest discomfort, will update echo prior to his procedure. Plan to call him with results. (5) Hyperlipidemia: Code(s): E78.5 - Hyperlipidemia, unspecified Category: Medical Plan: Decker LDL goal < 70 in pt with diabetes. Also has aortic stenosis. Labs done 02/27/24 showed LDL 126. He is not on statin for unclear reason. He is agreeable to start on statin. Will start Atorvastatin 20mg at bedtime. Labs have been ordered by his PCP. (6) Preop cardiovascular exam: Code(s): Z01.810 - Encounter for preprocedural cardiovascular examination Category: Medical Plan: Preop for upper and lower endoscopy with Dr Flores on 12/03/24. Will be updating echo. If no significant changes he can proceed with intermediate cardiac risk. At this time he known to have moderate aortic stenosis and nonobstructive coronary artery ds. Plan Time spent on chart review, documentation, interview and assessment Coding Level of Care Code Est Pt Level 4 (10035) Complex EM visit Add On G2211 Diagnoses Chest discomfort R07.89 S/P cardiac cath Z98.890 History of paroxysmal supraventricular tachycardia Z86.79 Nonrheumatic aortic valve stenosis I35.0 Cardiac valve disease etiology: nonrheumatic Hyperlipidemia E78.5 Preop cardiovascular exam Z01.810 CPT Codes EKG - CPT: [id number], Complete ([id number]) Time Spent (min) 30
[2024-11-21 09:48] VITALS: BP 138/70; PULSE 66; BMI 28.4
--- OUTSIDE RECORDS SUMMARY | 2024-11-21 11:38 | XMS_ITS | Patient Health Record ---
Author Organization [facility] Address [address] [place] [address] Care Team Providers Care Cutter Aluminum Sheet Name Role Phone Jxaon Fuentes MD Primary Care Provider Abdulaziz Laura Unavailable [phone] Allergies Allergen (clinical drug ingredient) Drug/Non Drug Allergy documented on EMR Reaction Allergy Type Onset Date Status tamsulosin Flomax itchy rash Drug Allergy Activ e Reason For Referral No Information Medications Medication SIG (Take, Route, Frequency, Duration) Notes Start Date End Date Status Atorvastatin Calcium 20 MG TAKE ONE TABLET BY MOUTH DAILY AT BEDTIME Oral for 90 Active Hyoscyamine Sulfate 0.125 MG use 1 Orally Q 6 hours prn abdominal bloating or discomfort for 30 days 08/13/2020 Active metFORMIN HCl 500 MG TK 1 T PO BID WAC O ral for 30 Active Finasteride 5 MG TK 1 T PO QD Oral fo r 30 Active Sporanox 100 MG 1 capsule after a me al Orally Once a day for 10 day(s) Active Gabapentin 100 MG TAKE ONE CAPSULE BY MOUTH TWICE A DAY Oral for 90 Active Omeprazole 40 MG 1 capsule Orally Onc e a day 06/16/2019 Active Dicyclomine HCl 10 MG 1-2 capsules Orall y QID prn abdominal bloating and cramps for 30 Not-Taking tiZANidine HCl 4 MG TAKE ONE TABLET BY MOUTH EVERY 8 HOURS NEEDED FOR MUSCLE SPASTICITY. Oral for 40 Active FreeStyle Lite Test - USE TO CHECK BLOOD SUGARS THREE TIMES DAILY In Vitro for 33 Active Immunizations Vaccine Route Administration Date Status Comme nts Influenza Unknown 06/26/2018 Administered Influenza Unknown 08/11/2019 Administered Influenza Unknown 04/11/2020 Administered Influenza Unknown 07/23/2024 Administered Social History Tobacco Use: Social History Observation Description Date Details (start date - stop date) Never Smoker NA - NA Tobacco Use/Smoking Question Answer Notes Patient is a nonsmoker Alcohol Screen Question Answer Notes Did you have a drink containing alcohol in the p ast year? No Points 0 Interpretation Negative Section Notes: Nonsmoker; no alcohol [place]; no [place]; no [place]; no alcohol [place] Problems Problem Type SNOMED Code ICD Code Onset Dates Problem Status W/U Status Risk Notes Problem 363327994 Encounter for screening for malignant neoplasm of colon (Z12.11) Active confirmed Problem 490748202 History of adenomatous polyp of colon (Z86.010) Active confirmed Problem 080084133 Abdominal bloati ng (R14.0) Active confirmed Problem 44873967 Gastritis, unspecified, without bleeding (K29.70) Active confirmed Problem 78348995 Calculus of gallbladder without cholecystitis without obstruction (K80.20) Active confirmed Problem 621258035 Gastroesophageal reflux disease, esophagitis presence not specified (K21.9) Active confirmed Problem Erosive esophagitis (06573472) Erosive esophagitis (K22.10) Active confirmed Problem 949365203 Abdominal pain, generalized (R10.84) Active confirmed Problem 618792286 Irritable bowel syndrome with constipation (K58.1) Active confirmed Problem 2021556 Chronic gastriti s without bleeding, unspecified gastritis type (K29.50) Active confirmed Problem 869107763 Adenomatous poly p of colon, unspecified part of colon (D12.6) Active confirmed Problem 30066879 Abdominal discomfort (R10.9) Active confirmed Vital Signs Temperature 96.9 degrees Fahrenheit 08/14/2024 Blood pressure diastolic 00 mm Hg 08/14/2024 Height 66 in 08/14/2024 Blood pressure systolic 000 mm Hg 08/14/2024 Weight 193 lb 4 oz lbs 08/14/2024 BMI 31.19 kg/m2 08/14/2024 Encounters Encounter Location Date Provider Diagnosis [facility] [address] [facility] [address] [place] [id number] 08/14/2024 Abdulaziz Flores Gastroesophageal ref lux disease, esophagitis presence not specified K21.9 ; History of adenomatous polyp of colon Z86.010 ; Encounter for screening for malignant neoplasm of colon Z12.11 ; Calculus of gallbladder without cholecystitis without obstruction K80.20 and Erosive esophagitis K22.10 [facility] [address] [place] [address] 08/12/2024 Abdulaziz Sandra [facility] [address] [place] [address] 08/13/2024 Abdulaziz Flores Assessments Encounter Date Diagnosis (ICD Code) Assessment Notes Treatment Notes Treatment Clinical Notes Section Notes 08/14/2024 History of adenomatous polyp of colon (ICD-10 - Z86.010) Overall, Jace appears well. His reflux seems to be stable on his current regimen of the daily omeprazole. Given his previous history of significant erosive esophagitis and some intermittent episodes of possible esophageal spasm despite being on a daily PPI, I did recommend he undergo an upper endoscopy for reevaluation and to assess for healing of the esophagitis and to rule out any underlying Qureshi's esophagus. Also recommend a followup screening colonoscopy the same day given his history of adenomas his last colonoscopy being about 5 years ago. We did review the rationale for this regard to colorectal cancer prevention. Full consent is obtained for this, including risks of bleeding and perforation. The procedure will be done with monitored anesthesia care. He was given the below instruction regarding adjustment of his medications for the procedure. We shall make sure he has cardiology clearance for the procedures as well due to some underlying history of cardiac issues. He was comfortable with this plan. Thank you again for allowing me to participate in Jace's care. I shall continue to keep you advised of his progress. 08/14/2024 Gastroesophageal reflux disease, esophagitis presence not specified (ICD-10 - K21.9) Continue on the daily omeprazole 40mg Overall, Jace appears well. His reflux seems to be stable on his current regimen of the daily omeprazole. Given his previous history of significant erosive esophagitis and some intermittent episodes of possible esophageal spasm despite being on a daily PPI, I did recommend he undergo an upper endoscopy for reevaluation and to assess for healing of the esophagitis and to rule out any underlying Qureshi's esophagus. Also recommend a followup screening colonoscopy the same day given his history of adenomas his last colonoscopy being about 5 years ago. We did review the rationale for this regard to colorectal cancer prevention. Full consent is obtained for this, including risks of bleeding and perforation. The procedure will be done with monitored anesthesia care. He was given the below instruction regarding adjustment of his medications for the procedure. We shall make sure he has cardiology clearance for the procedures as well due to some underlying history of cardiac issues. He was comfortable with this plan. Thank you again for allowing me to participate in Jace's care. I shall continue to keep you advised of his progress. 08/14/2024 Encounter for screening for malignant neoplasm of colon (ICD-10 - Z12.11) Do not take the Metformin the night before or on the morning of the procedures Need to obtain clearance from your Data Input Clerk before the procedures Overall, Jace appears well. His reflux seems to be stable on his current regimen of the daily omeprazole. Given his previous history of significant erosive esophagitis and some intermittent episodes of possible esophageal spasm despite being on a daily PPI, I did recommend he undergo an upper endoscopy for reevaluation and to assess for healing of the esophagitis and to rule out any underlying Qureshi's esophagus. Also recommend a followup screening colonoscopy the same day given his history of adenomas his last colonoscopy being about 5 years ago. We did review the rationale for this regard to colorectal cancer prevention. Full consent is obtained for this, including risks of bleeding and perforation. The procedure will be done with monitored anesthesia care. He was given the below instruction regarding adjustment of his medications for the procedure. We shall make sure he has cardiology clearance for the procedures as well due to some underlying history of cardiac issues. He was comfortable with this plan. Thank you again for allowing me to participate in Jace's care. I shall continue to keep you advised of his progress. 08/14/2024 Calculus of gallbladder without cholecystitis without obstruction (ICD-10 - K80.20) Overall, Jace appears well. His reflux seems to be stable on his current regimen of the daily omeprazole. Given his previous history of significant erosive esophagitis and some intermittent episodes of possible esophageal spasm despite being on a daily PPI, I did recommend he undergo an upper endoscopy for reevaluation and to assess for healing of the esophagitis and to rule out any underlying Qureshi's esophagus. Also recommend a followup screening colonoscopy the same day given his history of adenomas his last colonoscopy being about 5 years ago. We did review the rationale for this regard to colorectal cancer prevention. Full consent is obtained for this, including risks of bleeding and perforation. The procedure will be done with monitored anesthesia care. He was given the below instruction regarding adjustment of his medications for the procedure. We shall make sure he has cardiology clearance for the procedures as well due to some underlying history of cardiac issues. He was comfortable with this plan. Thank you again for allowing me to participate in Jace's care. I shall continue to keep you advised of his progress. 08/14/2024 Erosive esophagitis (ICD-10 - K22.10) Overall, Jace appears well. His reflux seems to be stable on his current regimen of the daily omeprazole. Given his previous history of significant erosive esophagitis and some intermittent episodes of possible esophageal spasm despite being on a daily PPI, I did recommend he undergo an upper endoscopy for reevaluation and to assess for healing of the esophagitis and to rule out any underlying Qureshi's esophagus. Also recommend a followup screening colonoscopy the same day given his history of adenomas his last colonoscopy being about 5 years ago. We did review the rationale for this regard to colorectal cancer prevention. Full consent is obtained for this, including risks of bleeding and perforation. The procedure will be done with monitored anesthesia care. He was given the below instruction regarding adjustment of his medications for the procedure. We shall make sure he has cardiology clearance for the procedures as well due to some underlying history of cardiac issues. He was comfortable with this plan. Thank you again for allowing me to participate in Jace's care. I shall continue to keep you advised of his progress. Plan Of Treatment Pending Test Test Name Order Date LIVER PROFILE 07/24/2019 AMYLASE 07/24/2019 LIPASE 07/24/2019 CBC w DIFF 07/24/2019 NUC HIDA SCAN 07/24/2019 Pathology 12/23/2020 Future Test Test Name Order Date UPPER GI ENDOSCOPY 05/07/2019 COLONOSCOPY 05/07/2019 UPPER GI ENDOSCOPY 08/14/2024 COLONOSCOPY 08/14/2024 Next Appt Details Provider Name:Abdulaziz Godwin Flores , 11/29/2024 10:00:00 AM, [address] [place] [address] , [place], [place], [phone], Insurance Providers Payer Name Payer Address Payer Phone Subscriber Number Group Number Insured Name Patient Relationship to Insured Coverage Start Date Coverage End Date [employer]ARE [employer] [place] [address] [place] [address] [phone] [id number] JACE SOTO Self - patient is the insured Medical (General) History Medical History History ICD Code Denies [place],CVA,Lung disease,renal disease NIDDM Hypertension Kidney stones--s/p cystos, ESWL, and ravi nts Colonoscopy in 12/[address] Monahan--s mall tubular adenomas removed Rdeikictpn-pkhgvzcdirso-kvq Dr. Chandler and the plan is for observatiion--had a normal HIDA sacn Anxiety/Panic attacks Overactive bladder (OAB)/ en larged prostate--had a cystoscopy in 10/2019 with Colonoscopy 05/2019 with small tubular ad enomas removed GERD-EGD in 05/2019 with charisma ritis/Hpylori, duodenitis, small HH, mild reflux-no Qureshi's--Hpylori treated in 06/2019 with triple therapy--did not improve his abdominal symptoms Neg cardiac cath in 2018- Dr. Mayelin blandon IBS Negative CT scan in 01/2019 except for ki dney stones SVT Aortic stenosis--sees [facility] Cardiology COVID 2020--with hospitalization and com plicated course EGD 2020--UGI bleed during h is COVID infection and hospitalization--had an EGD with the finding of erosive esophagitis and duodenal ulcer DVT with PE during his COVID infection a nd hospitalization in 2020 Surgical History Surgery Date(Month/Year)
--- OUTSIDE RECORDS SUMMARY | 2024-11-21 11:39 | XMS_ITS ---
Author Organization [facility] Address [address] [place] [address] Care Team Providers Care Munitions Worker Name Role Phone Alfredo JEAN, Jaxon Primary Care Provider Unavaila Abdulaziz Vega [phone] REASON FOR VISIT appt for 08/14 Encounters Encounter Location Date Provider Diagnosis [facility] [address] [place] [phone] 08/13/2024 Abdulaziz Flores Plan Of Treatment Next Appt Details Provider Name:Abdulaziz Flores , 11/29/2024 10:00:00 AM, [address] [place] [address] , [place], [place], [phone], Progress Notes * JACE SOTODOB: [birth year] (74 yo M)Acc No.[id number]:08/13/2024 Patient:?FIDELINAEverLESIA BURGERZULEMA :1950???Age:74 Y???Sex:Male Address:[address] [place] [address] , [place], [address] * true * Date:? Generated for Printi ng/Jaylyn/eTransmitting on:?11/21/2024 11:38 AM EDT
--- OUTSIDE RECORDS SUMMARY | 2024-11-21 11:39 | XMS_ITS ---
Author Organization [facility] Address [address] [place] [id number] Care Team Providers Care Health Information Clerk Name Role Phone Alfredo JEAN, Jaxon Primary Care Provider Unavaila Abdulaziz Vega [phone] REASON FOR VISIT Patient presents today for abd pain, screening colon Encounters Encounter Location Date Provider Diagnosis [facility] [address] [facility] [address] [place] [phone] 08/20/2024 Abdulaziz Flores Plan Of Treatment Next Appt Details Provider Name:Abdulaziz Flores , 11/29/2024 10:00:00 AM, [address] [place] [address] , [place], [place], [phone], Progress Notes * JACE SOTODOB: [birth year] (74 yo M)Acc No.[id number]:08/20/2024 Progress Notes Patient:?JACE SOTO Provider:?Abdulaziz Flores MD :1950???Age:74 Y???Sex:Male Dedrick e:08/20/2024 Address:[address] [place] [address] [id number] Pcp:Jaxon Fuentes MD Subjective: * Chief Complaints: * ???1. Patient presents today for abd pain, screening colon. * Medical History:? Objective: * Vitals:? Assessment: Plan: * Treatment: * * The named appointment provid er may or may not be the originator of this progress note, and it is not deemed complete until electronically signed by the appointment provider. Sign off status: Pending * Provider:?Abdulaziz Flores MD Date:? 024 Generated for Doris reynaga/Jaylyn/Adrianaitting on:?11/21/2024 11:38 AM EDT
--- OUTSIDE RECORDS SUMMARY | 2024-11-21 11:39 | XMS_ITS ---
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 Name Role Phone Alfredo JEAN, Jaxon Primary Care Provider Abdulaziz Laura Unavailable [phone] Allergies Allergen (clinical drug ingredient) Drug/Non Drug Allergy documented on EMR Reaction Allergy Type Onset Date Status tamsulosin Flomax itchy rash Drug Allergy Activ e REASON FOR VISIT abdominal pain Medications Medication SIG (Take, Route, Frequency, Duration) Notes Start Date End Date Status Gabapentin 100 MG TAKE ONE CAPSULE BY [...] TIMES DAILY In Vitro for 33 Active Atorvastatin Calcium 20 MG TAKE ONE TABLET [...] Once a day for 10 day(s) Active Social History Tobacco Use: Social History Observation Description Date Details (start date - stop date) Never Smoker NA - NA Tobacco Use/Smoking Question Answer Notes Patient is a nonsmoker Alcohol Screen Question Answer Notes Did you have a drink containing alcohol in the p ast year? No Points 0 Interpretation Negative Section Notes: Nonsmoker; no alcohol [place]--[place] in Problems Problem Type SNOMED Code ICD Code Onset Dates Problem Status W/U Status Risk Notes Problem Erosive esophagitis (58312007) Erosive esophagitis (K22.10) Active confirmed Vital Signs Temperature 96.9 degrees Fahrenheit 08/14/20 24 Blood pressure systolic 000 mm Hg 08/14/20 24 Blood pressure diastolic 00 mm Hg 024 Height 66 in 08/14/2024 Weight 193 lb 4 oz lbs 08/14/2024 BMI 31.19 kg/m2 08/14/2024 Encounters Encounter Location Date Provider Diagnosis [facility] [address] [place] [address] 08/14/2024 Abdulaziz Flores Gastroesophageal ref lux disease, esophagitis presence not specified K21.9 ; History of adenomatous polyp of colon Z86.010 ; Encounter for screening for malignant neoplasm of colon Z12.11 ; Calculus of gallbladder without cholecystitis without obstruction K80.20 and Erosive esophagitis K22.10 Assessments Encounter Date Diagnosis (ICD Code) Assessment Notes Treatment Notes Treatment Clinical Notes Section Notes 08/14/2024 Gastroesophageal reflux disease, esophagitis presence not [...] keep you advised of his progress. 08/14/2024 History of adenomatous polyp of colon [...] procedures Need to obtain clearance from your Machine Heel Sprayer before the procedures Overall, Jace appears well. [...] again for allowing me to participate in [facility] care. I shall continue to keep you advised of his progress. Plan Of Treatment Treatment Notes Assessment Notes Gastroesophageal reflux dise ase, esophagitis presence not specified Continue on the daily omeprazole 40mg Encounter for screening for malignant neoplasm of colon Do not take the Metformin the night before or on the morning of the procedures Need to obtain clearance from your Machine Heel Sprayer before the procedures Future Test Test Name Order Date UPPER GI ENDOSCOPY 08/14/2024 COLONOSCOPY 08/14/2024 Next Appt Details Follow Up: prn, Reason: Provider Name:Abdulaziz Godwin Flores , 11/29/2024 10:00:00 AM, [address] [place] [address], [phone], Progress Notes * JACE SOTODOB: [birth year] (74 yo M)Acc No.[id number]:08/14/2024 Progress Notes Patient:?DOROTHY SOTOKVNG Provider:?Abdulaziz Flores MD :1950???Age:74 Y???Sex:Male Dedrick e:08/14/2024 Address:[address] [place], [place] [id number] Pcp:Jaxon Fuentes MD Subjective: * Chief Complaints: * ???Abdominal pain * HPI: ???incontinence:? I saw Jace in consultation today in regard to further evaluation of his gastroesophageal reflux, history of erosive esophagitis and peptic ulcer disease, personal history of tubular adenomas of the colon, and need for colorectal cancer screening. ?I last saw Jace when he was hospitalized in 2020 with a significant COVID infection. He had an upper GI bleed at that time and an upper endoscopy revealed erosive esophagitis and a nonbleeding duodenal ulcer. Gastric biopsies were negative for H. pylori. He has remained on daily 40 mg omeprazole and reports that works well in controlling any heartburn symptoms although he does have occasional chest discomfort that was felt to be some esophageal spasm in relation to reflux when he was evaluated by cardiology back in March. He enjoys a good appetite and denies any dysphagia, nausea, or vomiting. He describes his bowel movements are fairly regular with a formed stool every other day, although he does take some senna and/or prune juice fairly regularly. He has not noticed any hematochezia nor melena. He denies any known family history of colon cancer. He denies any particular abdominal pain other than some intermittent bloating which has been a chronic issue for him. He denies any signs of jaundice, fevers, or weight loss. ?Laboratories in June revealed a hemoglobin of 13.4 with a normal MCV, normal chemistries and renal function, and a normal liver profile. * ROS:?General/Constitutional:?Change in appetite?denies.?Chills?denies.?Fatigue?denies.?Ophthalmologic:?Comments?all negative.?ENT:?Comments?all negative.?Respiratory:?hemoptysis?denies.?Cough?denies.?Cardiovascular:?Chest pain?denies.?Orthopnea?denies.?Gastrointestinal:?Comments?See HPI for details.?Genitourinary:?Hematuria?denies.?Dysuria?denies.?Musculoskeletal:?Painful joints?denies.?Weakness?denies.?Skin:?Itching?denies.?Rash?denies.?Neurologic:?Headache?denies.?Seizures?denies.?Psychiatric:?Comments?all negative.? * Medical History:? * Surgical History:?Denies Pas t Surgical History * Hospitalization/Major Diagno stic Procedure:?No Hospitalization History. * Family History:?Father: dece ased, diagnosed with Diabetes.?Mother: , diagnosed with Diabetes.? No colorectal cancer. * Social History:?Tobacco Use:?Tobacco Use/Smoking?Patient is a?nonsmoker.?Drugs/Alcohol:?Alcohol Screen?Did you have a drink containing alcohol in the past year??No,?Points?0,?Interpretation?Negative.?Miscellaneous:?Marital status: . 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 ???Nonsmoker; no alcohol [place]--[place] in . * Medications:?TakingHyoscyami ne Sulfate 0.125 MG Tablet use 1 Orally Q 6 hours prn abdominal bloating or discomfortmetFORMIN HCl 500 MG Tablet TK 1 T PO BID WAC Oral Finasteride 5 MG Tablet TK 1 T PO QD Oral Sporanox 100 MG Capsule 1 capsule after a meal Orally Once a dayAtorvastatin Calcium 20 MG Tablet TAKE ONE TABLET BY MOUTH DAILY AT BEDTIME Oral tiZANidine HCl 4 MG Tablet TAKE ONE TABLET BY MOUTH EVERY 8 HOURS NEEDED FOR MUSCLE SPASTICITY. Oral FreeStyle Lite Test - Strip USE TO CHECK BLOOD SUGARS THREE TIMES DAILY In Vitro Gabapentin 100 MG Capsule TAKE ONE CAPSULE BY MOUTH TWICE A DAY Oral Omeprazole 40 MG Capsule Delayed Release 1 capsule Orally Once a dayTaking Hyoscyamine Sulfate 0.125 MG Tablet use 1 Orally Q 6 hours prn abdominal bloating or discomfortTaking metFORMIN HCl 500 MG Tablet TK 1 T PO BID WAC Oral Taking Finasteride 5 MG Tablet TK 1 T PO QD Oral Taking Sporanox 100 MG Capsule 1 capsule after a meal Orally Once a dayTaking Atorvastatin Calcium 20 MG Tablet TAKE ONE TABLET BY MOUTH DAILY AT BEDTIME Oral Taking tiZANidine HCl 4 MG Tablet TAKE ONE TABLET BY MOUTH EVERY 8 HOURS NEEDED FOR MUSCLE SPASTICITY. Oral Taking FreeStyle Lite Test - Strip USE TO CHECK BLOOD SUGARS THREE TIMES DAILY In Vitro Taking Gabapentin 100 MG Capsule TAKE ONE CAPSULE BY MOUTH TWICE A DAY Oral Taking Omeprazole 40 MG Capsule Delayed Release 1 capsule Orally Once a dayNot-Taking/PRNDicyclomine HCl 10 MG Capsule 1-2 capsules Orally QID prn abdominal bloating and crampsMedication List reviewed and reconciled with the patientNot-Taking/PRN Dicyclomine HCl 10 MG Capsule 1-2 capsules Orally QID prn abdominal bloating and crampsMedication List reviewed and reconciled with the patient * Allergies:?Flomax: itchy parag hyes[Allergies Verified] Objective: * Vitals:?Wt: 193 lb 4 oz, Ht: 66 in, BMI:31.19 Index, BP: 000/00 mm Hg, Temp: 96.9. * Examination: ???General Examination: ?GENERAL APPEARANCE:?pleasant, well nourished, well developed, in no acute distress.?EYES:?sclera non-icteric.?ORAL CAVITY:?mucosa moist.?NECK/THYROID:?no cervical lymphadenopathy, neck supple.?SKIN:?nonjaundiced, no spider angiomata.?HEART:?S1, S2 normal.?LUNGS:?clear to auscultation bilaterally.?ABDOMEN:?normal bowel sounds, no guarding or rigidity, no guarding or rigidity, no masses palpable, soft, nontender, nondistended.?EXTREMITIES:?no edema.?NEUROLOGIC:?alert and oriented.? Assessment: * Assessment: 1.?Gastroesophageal reflux d isease, esophagitis presence not specified - K21.9 (Primary)?2.?History of adenomatous polyp of colon - Z86.010?3.?Encounter for screening for malignant neoplasm of colon - Z12.11?4.?Calculus of gallbladder without cholecystitis without obstruction - K80.20?5.?Erosive esophagitis - K22.10? Overall, Jace appears well. His reflux seems [...] esophagitis and to rule out any underlying Quershi's esophagus. Also recommend a followup screening colonoscopy [...] to keep you advised of his progress. Plan: * Treatment: Notes: Continue on the daily omeprazole 40mg??2.?History of adenomatous polyp of colon?Procedure: COLONOSCOPY (Ordered for 08/14/2024)* sched for 11/29/24 at 10:00 a mmacmiralax 3.?Encounter for screening for malignant neoplasm of colon?Procedure: COLONOSCOPY (Ordered for 08/14/2024)* sched for 11/29/24 at 10:00 a mmacmiralax Notes: Do not take the Metformin the night before or on the morning of the procedures Need to obtain clearance from your Machine Heel Sprayer before the procedures?? 4.?Erosive esophagitis?Procedure: UPPER GI ENDOSCOPY (Ordered for 08/14/2024)* sched for 11/29/24 at 10:00 a mmac * Procedure Codes:?3017F COLOR ECTAL CA SCREEN DOC [id number] TOBACCO NON-[id number] BP SCR NOT PRFRM REC REASON NOS * Preventive Medicine:? ??Counseling:?Care goal follow-up plan:?Above Normal BMI Follow-up?Giving encouragement to exercise,?BMI management provided?Yes.? ??Screenings:?Fall Risk Screening?Fall Risk Assessment:?No falls in the past year,?Screening:?No falls in the past year,?Assessment:?Not performed, no reason specified,?Plan of Care:?Not documented, no reason specified.? * Follow Up:?prn * * Sign off status: Completed true * Provider:?Abdulaziz Flores MD Date:? 024 Generated for Doris reynaga/Jaylyn/Crystal on:?11/21/2024 11:39 AM EDT History and Physical Notes * HPI (History of Present Illness) Category Sub-Category Detail Notes Category Not es incontinence I saw Jace in consultation today in regard to further evaluation of his gastroesophageal reflux, history of erosive esophagitis and peptic ulcer disease, personal history of tubular adenomas of the colon, and need for colorectal cancer screening. I last saw Jace when he was hospitalized in 2020 with a significant COVID infection. He had an upper GI bleed at that time and an upper endoscopy revealed erosive esophagitis and a nonbleeding duodenal ulcer. Gastric biopsies were negative for H. pylori. He has remained on daily 40 mg omeprazole and reports that works well in controlling any heartburn symptoms although he does have occasional chest discomfort that was felt to be some esophageal spasm in relation to reflux when he was evaluated by cardiology back in March. He enjoys a good appetite and denies any dysphagia, nausea, or vomiting. He describes his bowel movements are fairly regular with a formed stool every other day, although he does take some senna and/or prune juice fairly regularly. He has not noticed any hematochezia nor melena. He denies any known family history of colon cancer. He denies any particular abdominal pain other than some intermittent bloating which has been a chronic issue for him. He denies any signs of jaundice, fevers, or weight loss. Laboratories in June revealed a hemoglobin of 13.4 with a normal MCV, normal chemistries and renal function, and a normal liver profile. Examination Category Sub-Category Detail Notes Category Not es General Examination GENERAL APPEARANCE: pleasant , well nourished, well developed, in no acute distress HEAD: EYES: sclera non-icteric EARS: NOSE: THROAT: NECK/THYROID: no cervical lymphade nopathy, neck supple HEART: S1, S2 normal CHEST: LUNGS: clear to auscultatio n bilaterally ABDOMEN: normal bowel sounds, no guarding or rigidity, no guarding or rigidity, no masses palpable, soft, nontender, nondistended NEUROLOGIC: alert and oriented SKIN: nonjaundiced, no spi camron angiomata EXTREMITIES: no edema PERIPHERAL PULSES: BACK: BREASTS: MUSCULOSKELETAL: MALE GENITOURINARY: LYMPH NODES: RECTAL EXAM: FEMALE GENITOURINARY: ORAL CAVITY: mucosa moist
== END 2024-11-21 10:39 | disposition home or self-care (01) ==
LOC: HO.HCS 09:42
PROVIDERS: PCP Internal Medicine; Visit Provider Nurse Practitioner Family
DX: R07.89 Other chest pain (principal); Z98.890 Other specified postprocedural states; Z86.79 Personal history of other diseases of the circulatory system; I35.0 Nonrheumatic aortic (valve) stenosis; E78.5 Hyperlipidemia, unspecified; Z01.810 Encounter for preprocedural cardiovascular examination
CPT/HCPCS: 93010; 99214; G2211

== ENCOUNTER → 2024-11-21 09:41 | Outpatient (BNVA) | payer MEDICARE, SELFPAY | PROVIDERS: PCP Internal Medicine; Visit Provider Nurse Practitioner Family | DX: Z01.810 Encounter for preprocedural cardiovascular examination (principal); I35.0 Nonrheumatic aortic (valve) stenosis; R07.89 Other chest pain; E78.5 Hyperlipidemia, unspecified; Z86.79 Personal history of other diseases of the circulatory system; Z98.890 Other specified postprocedural states | CPT/HCPCS: 93005; 99212 ==

== ENCOUNTER 2024-11-22 10:02 | Outpatient (AMB) | payer MEDICARE, SELFPAY ==
[2024-11-22 10:14] VITALS: BP 126/86; PULSE 64; O2SAT 99; BMI 29.1
--- NOTE | 2024-11-22 10:14 | A.OFFPC_ITS ---
Vital Signs 11/22/24 10:14 Height 5 ft 8 in Weight 191 lb 4 oz BMI 29.1 BP 126/86 Blood Pressure Location Lt brachial Position Sitting Pulse 64 Pulse Source Pulse Oximeter Pulse Oximetry (%) 99 Oxygen Delivery Method Room Air Intake Visit Reasons: 3 Month F/U Intake Note: Patient is here to follow up on DM, HTN, HLD. Appraiser Personal Property Required: No Outpatient Receptionist: Present Accompanied by: Self / Same As Patient Allergies No Known Allergies Allergy (Verified 11/22/24 10:14) Medication List - Last Reconciled 11/25/24 by Jaxon Fuentes MD acetaminophen 650 mg (2 x 325 mg) PO Q6H PRN aluminum hydrox-magnesium carb 254-237.5 mg/5 mL (Gaviscon Extra Strength) 10 mL PO QID atorvastatin 20 mg PO BEDTIME blood sugar diagnostic (FreeStyle Lite Strips) TO CHECK BLOOD SUGar once a day blood-glucose meter (FreeStyle Lite Meter kit) TO CHECK BLOOD SUGARS THREE TIMES A DAY clotrimazole-betamethasone 1-0.05 % 1 appl topical BID 2 weeks gabapentin 100 mg PO BID lancets (FreeStyle Lancets) TO CHECK BLOOD SUGARS THREE TIMES A DAY metformin 1,000 mg PO BID omeprazole 40 mg PO BID tizanidine 4 mg PO Q8H PRN triamcinolone acetonide 0.5% 1 appl topical TID Tobacco use date assessed: 11/22/24 Fall risk assessment: No Falls in past year Last assessed Fall Risk: 11/22/24 Dental Screening Dental Screen Date: 11/22/24 Did you have a dental visit in the last 12 months?: No Did you have a dental problem in the last 6 months where you did not have access to dental care?: No Was dental information given to patient?: No HPI 3 Month F/U HPI Details DM on rx; doing well and compliant [facility] Medical History Aortic stenosis Pulmonary emboli DVT (deep venous thrombosis) Bacteremia due to Gram-positive bacteria COVID-19 Diabetes type 2, controlled Chronic GERD Nephrolithiasis BPH loc w urin obs/LUTS Irritable bowel syndrome Surgical History S/P cardiac cath History of colonoscopy History of hand surgery History of kidney stones Family History Father Medical history unknown Mother Medical history unknown Social History Household Members: None Housing: Apartment Do you presently have visiting nurse or other home services: No Alcohol intake: never Comment: sitter in room Patient Tobacco Use Status: Never used Tobacco Tobacco use type: Cigarette e-Cigarette/Vaping Use: Never Used Second Hand Smoke Exposure: No Advance Directives Date on File: 12/17/20 service: No 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 1. Little interest or pleasure in doing things: not at all 2. Feeling down, depressed, or hopeless: not at all 3. Trouble falling or staying asleep, or sleeping too much: not at all 4. Feeling tired or having little energy: not at all 5. Poor appetite or overeating: not at all 6. Feeling bad about yourself - or that you are a failure or have let yourself or your family down: not at all 7. Trouble concentrating on things, such as reading the newspaper or watching television: not at all 8. Moving or speaking so slowly that other people could have noticed. Or the opposite - being so fidgety or restless that you have been moving around a lot more than usual: not at all 9. Thoughts that you would be better off or of hurting yourself in some way: not at all Total score: 0 Depression Screening Interpretation: Negative Depression Screening Done: Yes 15292 - PHQ-9 Billing: Yes Source: Developed by Drs. Abdulaziz Hopson, Mellissa Booth, Rodríguez Singh and colleagues, with an educational mickie from [employer]. Thrive Questionnaire Date Thrive assessed: 11/22/24 I am a: Patient What is your living situation today?: I have a steady place to live Within the past 12 months, did the food you bought not last and you didn't have the money to get more?: Never true Within the past 12 months, did you worry whether your food would run out before you got money to buy more?: Never true Do you have trouble paying for medicines?: No Do you have trouble getting transportation to medical appointments?: No Do you have trouble paying your heating and electricity bill?: No Do you have trouble taking care of your child, family member or friend?: No Do you have trouble with day-to-day activities such as bathing, preparing meals, shopping, managing finances, etc.?: No Are you currently unemployed and looking for a job?: No Are you interested in more education?: No Please select the resources that you would like help with: None Currently or been in a relationship where the following occur: No concerns reported THRIVE Score: 0 AUDIT C Alcohol Use Questionnaire (AUDIT-C) 1. How often do you have a drink containing alcohol?: Never 3. How often do you have six or more drinks on one occasion?: Never Total Score: 0 Score Reviewed/Action Taken: Yes SIXTO-7 AMB Questionnaire SIXTO-7 Date SIXTO - 7 assessed: 11/22/24 Feeling nervous, anxious, or on edge: 0 = Not at all Not being able to stop or control worryin = Not at all Worrying too much about different things: 0 = Not at all Trouble relaxin = Not at all Being so restless that it is hard to sit still: 0 = Not at all Becoming easily annoyed or irritable: 0 = Not at all Feeling afraid as if something awful might happen: 0 = Not at all Total SIXTO-7 score (0-4 normal; 5-9 mild; 10-14 moderate; 15-21 severe): 0 Source: Developed by Drs. Abdulaziz Hopson, Mellissa Booth, Rodríguez Singh and colleagues, with an educational mickie from [employer]. SIXTO-7 Assessment Billing SIXTO-7 Assessment Tool: SIXTO-7 Assessment 46904 Review of Systems Const Denies chills, Denies headache(s) and Denies weight loss ENT Denies headache(s) Card Denies chest pain, Denies syncope, Denies irregular heart rhythm and Denies dyspnea Resp Denies chest congestion, Denies cough and Denies dyspnea GI Denies abdominal pain, Denies change in stool character, Denies nausea and Denies vomiting Musc Denies deformity and Denies joint swelling Neuro Denies syncope and Denies headache(s) Physical exam (Primary Care) Vital Signs: Last Vital Signs Pulse 64 11/22/24 10:14 BP 126/86 11/22/24 10:14 Pulse Ox 99 11/22/24 10:14 Oxygen Delivery Method Room Air 11/22/24 10:14 BMI result Body Mass Index 29.1 Tobacco/Smoking Status: Tobacco use Status Tobacco use date assessed 11/22/24 11/22/24 10:15 Patient Tobacco Use Status Never used Tobacco 11/22/24 10:15 Tobacco use type Cigarette 11/22/24 10:15 e-Cigarette/Vaping Use Never Used 11/22/24 10:15 PHQ-9: PHQ-9 Score PHQ-9: Total score 0 11/22/24 10:29 Depression Screening Interpretation: Negative Thrive Assessment: Date of Thrive Assessment Date Thrive assessed 11/22/24 11/22/24 10:21 Currently or been in a relationship where the following occur: No concerns reported Const General: cooperative, comfortable, no acute distress and alert Neck Neck: Yes no lymphadenopathy Thyroid: Thyroid normal Resp Effort & Inspection: normal respiratory effort Auscultation: clear to auscultation bilaterally Percussion: percussion normal Cardio Jugular venous distension: no JVD Palpation: normal PMI Rate: regular rate Rhythm: regular rhythm Heart sounds: S1 normal heart sound present and S2 normal heart sound present GI Inspection: Yes normal to inspection Palpation (GI): No hepatosplenomegaly present Skin General skin exam: no rashes or lesions noted Extrem General: Yes no clubbing, cyanosis or edema Results AMB Hemoglobin A1c AMB Hemoglobin A1c 7.3 % Last Edit by ANH Delcid on 11/22/24 10 :35 Results Reviewed Results Reviewed: Laboratory Last Values Hgb A1c (Clinic) 7.3 % (4.0-6.0) H 11/22/24 10:30 Coding Level of Care Code Est Pt Level 3 (93431) Diagnoses Type 2 diabetes mellitus with obesity E11.69; E66.9 Additional Codes SIXTO-7 Assessment Billing - SIXTO-7 Assessment Tool: SIXTO-7 Assessment 19063 ([id number]) PHQ-9 - 16608 - PHQ-9 Billing: Yes ([id number]) Assessment & Plan Assessment & Plan (1) Type 2 diabetes mellitus with obesity: Code(s): E11.69 - Type 2 diabetes mellitus with other specified complication; E66.9 - Obesity, unspecified Category: Medical Plan: stable; same rx Orders: Orders AMB Hemoglobin A1c 11/22/24 Z13.9 - Encounter for screening, unspecified
--- OUTSIDE RECORDS SUMMARY | 2024-11-22 11:15 | XMS_ITS | Patient Health Record ---
Author Organization [facility] Address [address] [place] [address] Care Team Providers Care Account Specialist Name Role Phone Jaxon Fuentes MD Primary Care Provider Abdulaziz Laura Unavailable [phone] Allergies Allergen (clinical drug ingredient) Drug/Non Drug [...] Interpretation Negative Section Notes: Nonsmoker; no alcohol Ecuadorean--[place] in [place]; no alcohol Ecuadorean--[place]; no alcohol Ecuadorean--[place]; no alcohol Ecuadorean--[place] in Problems Problem Type SNOMED Code ICD Code Onset Dates Problem Status W/U Status Risk Notes Problem 877031908 Encounter for screening for malignant neoplasm of colon (Z12.11) Active confirmed Problem 547955576 History of adenomatous polyp of colon (Z86.010) Active confirmed Problem 436526460 Abdominal bloati ng (R14.0) Active confirmed Problem 36189504 Gastritis, unspecified, without bleeding (K29.70) Active confirmed Problem 97095175 Calculus of gallbladder without cholecystitis without obstruction (K80.20) Active confirmed Problem 440547989 Gastroesophageal reflux disease, esophagitis presence not specified (K21.9) Active confirmed Problem Erosive esophagitis (07148273) Erosive esophagitis (K22.10) Active confirmed Problem 956832559 Abdominal pain, generalized (R10.84) Active confirmed Problem 077077194 Irritable bowel syndrome with constipation (K58.1) Active confirmed Problem 1975450 Chronic gastriti s without bleeding, unspecified gastritis type (K29.50) Active confirmed Problem 026381124 Adenomatous poly p of colon, unspecified part of colon (D12.6) Active confirmed Problem 65018977 Abdominal discomfort (R10.9) Active confirmed Vital Signs Temperature 96.9 degrees Fahrenheit 08/14/2024 Blood pressure diastolic 00 mm Hg 08/14/2024 Height 66 in 08/14/2024 Blood pressure systolic 000 mm Hg 08/14/2024 Weight 193 lb 4 oz lbs 08/14/2024 BMI 31.19 kg/m2 08/14/2024 Encounters Encounter Location Date Provider Diagnosis [facility] 10 [facility] [address] [place] [address] 08/14/2024 Abdulaziz Flores Gastroesophageal ref lux disease, esophagitis presence not specified K21.9 ; History of adenomatous polyp of colon Z86.010 ; Encounter for screening for malignant neoplasm of colon Z12.11 ; Calculus of gallbladder without cholecystitis without obstruction K80.20 and Erosive esophagitis K22.10 [facility] [address] [place] [address] 08/12/2024 Abdulaziz Sandra [facility] [address] [place] [address] 08/13/2024 Abdulaziz Flores Assessments Encounter Date Diagnosis [...] procedures Need to obtain clearance from your Management Trainee Marketing before the procedures Overall, Jace appears well. [...] COLONOSCOPY 08/14/2024 Next Appt Details Provider Name:Abdulaziz Connelly Sandra , 11/29/2024 10:50:00 AM, [address] [place] [address] , [place], [phone], Insurance Providers Payer Name Payer Address Payer Phone Subscriber Number Group Number Insured Name Patient Relationship to Insured Coverage Start Date Coverage End Date MEDICARE OF [place] [address] [place] [address] [phone] [id number] JACE SOTO Self - patient is the insured Medical (General) History Medical History History ICD Code Denies [place],CVA,Lung disease,renal disease NIDDM Hypertension Kidney stones--s/p cystos, ESWL, and ravi nts Colonoscopy in 12/[address] Monahan--s mall tubular adenomas removed Udblwpidln-xmfbseiljgkp-ujr Dr. Chnadler and the plan is for observatiion--had a [...] for ki dney stones SVT Aortic stenosis--sees [facility] Cardiology COVID 2020--with hospitalization and com plicated course EGD 2020--UGI bleed during h is COVID infection and hospitalization--had an EGD with the finding of erosive esophagitis and duodenal ulcer DVT with PE during his COVID infection a nd hospitalization in 2020 Surgical History Surgery Date(Month/Year)
--- OUTSIDE RECORDS SUMMARY | 2024-11-22 11:15 | XMS_ITS ---
Author Organization [facility] Address [address] [place] [address] Care Team Providers Care Bank Operations Officer Name Role Phone Alfredo JEAN, Jaxon Primary Care Provider Unavaila Abdulaziz Vega [phone] REASON FOR VISIT appt for 08/14 Encounters Encounter Location Date Provider Diagnosis [facility] [address] [place] [address] 08/13/2024 Abdulaziz Flores Plan Of Treatment Next Appt Details Provider Name:Abdulaziz Flores , 11/29/2024 10:50:00 AM, [address] [place] [address] , [place], [place], [phone], Progress Notes * JCAE SOTODOB: [birth year] (74 yo M)Acc No.[id number]:08/13/2024 Patient:?BRITTANY JACE :1950???Age:74 Y???Sex:Male Address:[address] [place] [address] [address] , [place], [address] * true * Date:? Generated for Printi ng/Jaylyn/eTransmitting on:?11/22/2024 11:14 AM EDT
--- OUTSIDE RECORDS SUMMARY | 2024-11-22 11:15 | XMS_ITS ---
Author Organization [facility] Address [address] [place] [address] Care Team Providers Care Stock Roller Name Role Phone Alfredo JEAN, Jaxon Primary Care Provider Unavaila Abdulaziz Vega [phone] REASON FOR VISIT Patient presents today for abd pain, screening colon Encounters Encounter Location Date Provider Diagnosis [facility] 10 [facility] [address] [place] [address] 08/20/2024 Abdulaziz Flores Plan Of Treatment Next Appt Details Provider Name:Abdulaziz Flores , 11/29/2024 10:50:00 AM, [address] [place] [address] , [place], [place], [phone], Progress Notes * JACE SOTODOB: [birth year] (74 yo M)Acc No.[id number]:08/20/2024 Progress Notes Patient:?JACE SOTO Provider:?Abdulaziz Flores MD :1950???Age:74 Y???Sex:Male Dedrick e:08/20/2024 Address:[address] [place] [address] [address] Pcp:Jaxon Fuentes MD Subjective: * Chief Complaints: [...] MD Date:? 024 Generated for Doris reynaga/Jaylyn/Crystal on:?11/22/2024 11:14 AM EDT
--- OUTSIDE RECORDS SUMMARY | 2024-11-22 11:15 | XMS_ITS ---
Author Organization [facility] Address [address] [place] [address] Care Team Providers Care Director Federal Name Role Phone Alfredo JEAN, Jaxon Primary Care Provider Abdulaziz Laura Unavailable [phone] Allergies Allergen (clinical drug ingredient) Drug/Non Drug [...] Interpretation Negative Section Notes: Nonsmoker; no alcohol Macedonian--[place] in Problems Problem Type SNOMED Code ICD Code Onset Dates Problem Status W/U Status Risk Notes Problem Erosive esophagitis (02093049) Erosive esophagitis (K22.10) Active confirmed Vital Signs Temperature 96.9 degrees Fahrenheit 08/14/20 24 Blood pressure systolic 000 mm Hg 08/14/20 24 Blood pressure diastolic 00 mm Hg 024 Height 66 in 08/14/2024 Weight 193 lb 4 oz lbs 08/14/2024 BMI 31.19 kg/m2 08/14/2024 Encounters Encounter Location Date Provider Diagnosis [facility] [address] [place] [address] 08/14/2024 Abdulaziz Flores Gastroesophageal ref lux disease, [...] procedures Need to obtain clearance from your Supervisor Bakery Sanitation before the procedures Overall, Jace appears well. [...] procedures Need to obtain clearance from your Supervisor Bakery Sanitation before the procedures Future Test Test Name Order Date UPPER GI ENDOSCOPY 08/14/2024 COLONOSCOPY 08/14/2024 Next Appt Details Follow Up: prn, Reason: Provider Name:Abdulaziz Godwin Flores , 11/29/2024 10:50:00 AM, [address] [place] [address], [phone], Progress Notes * JACE SOTODOB: [birth year] (74 yo M)Acc No.[id number]:08/14/2024 Progress Notes Patient:?DOROTHY SOTOKVNG Provider:?Abdulaziz Flores MD :1950???Age:74 Y???Sex:Male Dedrick e:08/14/2024 Address:[address] [place], [place] [id number] Pcp:Jaxon Fuentes MD Subjective: * Chief Complaints: [...] in the past year??No,?Points?0,?Interpretation?Negative.?Miscellaneous:?Marital status: . 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 ???Nonsmoker; no alcohol Macedonian--[place] in . * Medications:?TakingHyoscyami ne [...] procedures Need to obtain clearance from your Supervisor Bakery Sanitation before the procedures?? 4.?Erosive esophagitis?Procedure: UPPER GI ENDOSCOPY (Ordered for 08/14/2024)* sched for 11/29/24 at 10:00 a mmac * Procedure Codes:?3017F COLOR ECTAL CA SCREEN DOC ECG6631O TOBACCO NON-DEESF9965 BP SCR NOT PRFRM REC REASON NOS [...] for Doris reynaga/Jaylyn/Crystal on:?11/22/2024 11:14 AM EDT History and Physical Notes * [...]
== END 2024-11-22 10:54 | disposition home or self-care (01) ==
LOC: HO.HMCH 10:03
PROVIDERS: PCP Internal Medicine; Visit Provider Internal Medicine
DX: Z13.9 Encounter for screening, unspecified (principal)

== ENCOUNTER 2024-11-22 10:02 | Outpatient (REF) | payer MEDICARE, SELFPAY ==
[2024-11-22 10:54] LABS: MANUAL DIFF FLAG NO
[2024-11-22 11:44] LABS: Basophils Percent Auto 0.4 % (0-2); Eosinophils Absolute Auto 0.2 X10*3/uL (0.0-0.4); Eosinophils Percent Auto 1.6 % (0-4); Hematocrit 40.6 % (42.0-52.0); Hemoglobin 13.4 g/dl (14.0-18.0); Imm Gran Abs Auto 0.02 X10*3/uL (0.00-0.03); Imm Gran Pct Auto 0.2 % (0.0-0.4); Lymphocytes Absolute Auto 4.3 X10*3/uL (1.2-4.9); Lymphocytes Percent Auto 44.1 % (20-40); Mean Corpuscular Volume 87.9 fL (80.0-98.0); Mean Platelet Volume 10.3 fL (9.4-12.4); Monocytes Absolute Auto 0.5 X10*3/uL (0.1-1.2); Monocytes Percent Auto 5.5 % (2-11); Neutrophils Absolute Auto 4.7 x10*3/uL (2.0-8.3); Neutrophils Percent Auto 48.2 % (45-73); Platelet Count 225 X10*3/uL (160-400); Red Blood Count 4.62 X10*6/uL (4.60-5.80); Red Cell Distribution Width 13.5 % (11.0-16.0); White Blood Count 9.7 X10*3/uL (4.8-10.8)
[2024-11-22 12:33] LABS: Alanine Aminotransferase 22 U/L (0-40); Alkaline Phosphatase 86 U/L (39-117); Anion Gap 12 (12-20); Aspartate Amino Transferase 22 U/L (5-37); Bilirubin Total 0.4 mg/dL (0.0-1.0); Blood Urea Nitrogen 16 mg/dL (9-16); Calcium 9.2 mg/dL (8.4-10.2); Carbon Dioxide 22 mmol/L (22-29); Chloride 109 mmol/L (96-108); Cholesterol 149 mg/dL (<200); Estimated Glomerular Filt Rate > 60; Glucose Fasting 118 mg/dL (60-99); HDL Cholesterol 43 mg/dL (>40); LDL Cholesterol Calculated 93 mg/dL (<100); Potassium 4.2 mmol/L (3.3-5.1); Sodium 139 mmol/L (135-145); Total Protein 7.8 g/dL (6.5-8.0); Triglycerides 69 mg/dL (<150)
[2024-11-22 12:37] LABS: Estimated Average Glucose 171 mg/dL; Hemoglobin A1c % 7.6 % (<6.0)
== END 2024-11-22 10:03 | disposition home or self-care (01) ==
LOC: HO.LAB 10:02
PROVIDERS: PCP Internal Medicine; Visit Provider Internal Medicine
DX: E11.69 Type 2 diabetes mellitus with other specified complication (principal); E66.9 Obesity, unspecified; E11.65 Type 2 diabetes mellitus with hyperglycemia; Z13.0 Encounter for screening for diseases of the blood and blood-forming organs and certain disorders involving the immune mechanism; Z13.9 Encounter for screening, unspecified; Z13.220 Encounter for screening for lipoid disorders
CPT/HCPCS: 36415; 80053; 80061; 83036; 85025; 96127; 99212

== ENCOUNTER → 2024-11-26 13:44 | Outpatient (REF) | payer MEDICARE, SELFPAY ==
--- NOTE | 2024-11-26 13:47 | CA_ITS ---
Transthoracic Echocardiogram Patient (Last, First, Middle): Mariposa Davis A Gender: Male Date of : 1950 Age: 74 Procedure Date: 11/26/2024 Procedure Type: Transthoracic Echocardiogram Location: OP Height: 170.18 cm Weight: 86.18 kg BSA: 1.98 m2 Heart Rate: bpm BP: 150 / 76 mmHg Drafter Structural: TO Referring MD: Yaquelin Palm SIPHON OPERATOR-C Spd Manager: Milton Nicole MD Symptoms: I35.0 - Nonrheumatic aortic (valve) stenosis Study Quality: Fair/Contrast ECG Rhythm: Sinus Conclusions: - 1. Normal LV ejection fraction 55-60% with mild asymmetric septal hypertrophy with impaired relaxation filling pattern 2. Moderate to severe aortic stenosis, paradoxical low-flow 3. Mildly dilated ascending aorta at 3.7 cm 4. No gross pericardial effusion Findings Procedure Information Contrast agent, definity, is being given per protocol without apparent complications. Left Ventricle Normal left ventricular size, thickness, and systolic function. The visually estimated ejection fraction is between 55-60%. Spectral Doppler is indicative of an impaired relaxation filling pattern. E/E prime ratio is between 8 and 15 consistent with indeterminate filling pressures. There is mild septal asymmetric hypertrophy. Right Ventricle Normal right ventricular cavity size and systolic function. Atria The left atrium is likely dilated. There is no evidence of interatrial shunt. The right atrium is normal in size. Aortic Valve There is moderate calcification of the aortic valve. There is moderate thickening of the aortic valve. There is severely restricted aortic valve cusp separation. The peak aortic gradient is 39 mmHg.The mean gradient is 25 mmHg. The aortic valve area is 1.06 cm2. dimensionless index is at 0.23. Overall findings consistent with moderately severe aortic stenosis, paradoxical low-flow Mitral Valve Likely normal mitral valve structure and function. There is trace mitral valve regurgitation. There is no mitral valve stenosis. Pulmonic Valve The pulmonic valve was not well visualized. Tricuspid Valve Likely normal tricuspid valve structure and function. Tricuspid regurgitation envelope is inadequate for calculation of right ventricular systolic pressure. Normal right atrial pressure. Great Vessels The pulmonary artery was not well visualized. There is mild dilatation of the ascending aorta. Venous The inferior vena cava is normal in size and collapses greater than 50% with inspiration. Pericardium/Pleural There is no evidence of pericardial effusion. Prior Study Comparison Changes noted compared to prior study dated: 03/12/2024. aortic stenosis is moderately severe Measurements 2D Linear Measurements IVSd: 1.24 0.6-0.9/0.6-1.0 cm LVIDd: 4.03 3.9-5.3/4.2-5.9 cm LVIDd Index: 2.04 2.4-3.2/2.2-3.1 cm/m2 LVIDs: 2.92 2.0-3.6 cm LVPWd: 0.83 0.7-1.1 cm LA Diam: 3.90 2.7-3.8/3.0-4.0 cm LAIDs Index: 1.97 1.5-2.3 cm/m2 LV Mass: 168.22 67-162/88-224 g LV Mass Index: 84.96 43-95/49-115 g/m2 LVOT Diam: 2.40 3.0+(-)1.3 cm Mitral Valve MV Pk E: 0.70 MV PK A: 1.21 MV Decel Time: 288.00 E/A: 0.60 E'Lateral: 5.44 E'Medial: 4.24 E/E' Med: 16.50 E/E' Lat: 12.80 PHT: 84.00 MVA PHT: 2.62 Decel Custer: 2.43 Aortic Valve AoV Pk Baron: 3.14 AoV Mn Baron: 2.40 AoV VTI: 0.77 AoV Pk Grad: 39.00 Aov Mn Grad: 25.00 CURRY Cont.VTI: 1.06 LVOT LVOT Pk Baron: 0.81 LVOT Mn Baron: 0.58 LVOT VTI: 0.18 LVOT Pk Grad: 3.00 LVOT Mn Grad: 2.00 LVOT Diam: 2.40 LVOT Area: 4.52 Diastolic Function MV Pk E: 0.70 MV Pk A: 1.21 E/A: 0.60 E'Medial: 4.24 E/E' Med: 16.50 E' Laterial: 5.44 E/E' Lat: 12.80 Right Ventricle TAPSE (mm): 19.90 TVS' Baron: 11.50 Tricuspid Valve RA Press: 3.00 Great Vessels Aorta Sinus of Valsalva: 3.50 2.0-3.[address] Ridge: 2.80 1.7-3.4 cm Ao Asc: 3.70 2.1-3.4 cm Ao Arch: 3.40 Updated in Other Vendor System with Status of Final Milton Nicole MD electronically signed on 11/26/2024 4:47:14 PM with status of Final
--- OUTSIDE RECORDS SUMMARY | 2024-11-26 16:15 | XMS_ITS | Patient Health Record ---
Author Organization [facility] Address [address] [place] [address] Care Team Providers Care Internal Audit Senior Manager Name Role Phone Jaxon Fuentes MD Primary Care Provider Abdulaziz Laura Unavailable [phone] Allergies Allergen (clinical drug ingredient) Drug/Non Drug [...] Interpretation Negative Section Notes: Nonsmoker; no alcohol Uzbek--[place] in [place]; no alcohol Uzbek--[place]ons[place]; no alcohol Uzbek--[place]ons[place]; no alcohol Uzbek--[place] in Problems Problem Type SNOMED Code ICD Code Onset Dates Problem Status W/U Status Risk Notes Problem 854415620 Encounter for screening for malignant neoplasm of colon (Z12.11) Active confirmed Problem 008769778 History of adenomatous polyp of colon (Z86.010) Active confirmed Problem 131253810 Abdominal bloati ng (R14.0) Active confirmed Problem 33208884 Gastritis, unspecified, without bleeding (K29.70) Active confirmed Problem 23347251 Calculus of gallbladder without cholecystitis without obstruction (K80.20) Active confirmed Problem 290725690 Gastroesophageal reflux disease, esophagitis presence not specified (K21.9) Active confirmed Problem Erosive esophagitis (90561761) Erosive esophagitis (K22.10) Active confirmed Problem 449663253 Abdominal pain, generalized (R10.84) Active confirmed Problem 921393354 Irritable bowel syndrome with constipation (K58.1) Active confirmed Problem 8982013 Chronic gastriti s without bleeding, unspecified gastritis type (K29.50) Active confirmed Problem 985556965 Adenomatous poly p of colon, unspecified part of colon (D12.6) Active confirmed Problem 99452573 Abdominal discomfort (R10.9) Active confirmed Vital Signs Temperature 96.9 degrees Fahrenheit 08/14/2024 Blood pressure diastolic 00 mm Hg 08/14/2024 Height 66 in 08/14/2024 Blood pressure systolic 000 mm Hg 08/14/2024 Weight 193 lb 4 oz lbs 08/14/2024 BMI 31.19 kg/m2 08/14/2024 Encounters Encounter Location Date Provider Diagnosis [facility] 10 [facility] [address] [place] [address] 08/14/2024 Abdulaziz Flores Gastroesophageal ref lux disease, esophagitis presence not specified K21.9 ; History of adenomatous polyp of colon Z86.010 ; Encounter for screening for malignant neoplasm of colon Z12.11 ; Calculus of gallbladder without cholecystitis without obstruction K80.20 and Erosive esophagitis K22.10 [facility] [address] [place] [address] 08/12/2024 Abdulaziz Sandra [facility] [address] [place] [address] 08/13/2024 Abdulaziz Flores Assessments Encounter Date Diagnosis [...] procedures Need to obtain clearance from your Inspector Boiler before the procedures Overall, Jace appears well. [...] Name:Abdulaziz Connelly Sandra , 11/29/2024 10:50:00 AM, [address] [place] [address] , [place], [place], [phone], Insurance Providers Payer Name Payer Address Payer Phone Subscriber Number Group Number Insured Name Patient Relationship to Insured Coverage Start Date Coverage End Date MEDICARE OF [place] [address] [place] [address] [phone] [id number] JACE SOTO Self - patient is the insured Medical (General) History Medical History History ICD Code Denies [place],CVA,Lung disease,renal disease NIDDM Hypertension Kidney stones--s/p cystos, ESWL, and ravi nts Colonoscopy in 12/[address] Monahan--s mall tubular adenomas removed Zmeadkvpaa-igxlbxhebhgr-upk Dr. Chandler and the plan is for [...] for ki dney stones SVT Aortic stenosis--sees [facility] Cardiology COVID 2020--with hospitalization and com plicated course EGD 2020--UGI bleed during h is COVID infection and hospitalization--had an EGD with the finding of erosive esophagitis and duodenal ulcer DVT with PE during his COVID infection a nd hospitalization in 2020 Surgical History Surgery Date(Month/Year)
--- OUTSIDE RECORDS SUMMARY | 2024-11-26 16:16 | XMS_ITS ---
Author Organization [facility] Address [address] [place] [address] Care Team Providers Care Assistant Case Manager Name Role Phone Alfredo JEAN, Jaxon Primary Care Provider Unavaila Abdulaziz Vega [phone] REASON FOR VISIT Patient presents today for abd pain, screening colon Encounters Encounter Location Date Provider Diagnosis [facility] 10 [facility] [address] [place] [address] 08/20/2024 Abdulaziz Flores Plan Of Treatment Next Appt Details Provider Name:Abdulaziz Flores , 11/29/2024 10:50:00 AM, [address] [place] [address] , [place], [phone], Progress Notes * JACE SOTODOB: [birth year] (74 yo M)Acc No.[id number]:08/20/2024 Progress Notes Patient:?JACE SOTO Provider:?Abdulaziz Flores MD :1950???Age:74 Y???Sex:Male Dedrick e:08/20/2024 Address:[address] [place] [address] [address] Pcp:Jaxon Fuentes MD Subjective: * Chief Complaints: [...] MD Date:? 024 Generated for Doris reynaga/Jaylyn/Crystal on:?11/26/2024 04:15 PM EDT
--- OUTSIDE RECORDS SUMMARY | 2024-11-26 16:16 | XMS_ITS ---
Author Organization [facility] Address [address] [place] [address] Care Team Providers Care Insulation Supervisor Name Role Phone Alfredo JEAN, Jaxon Primary Care Provider Unavaila Abdulaziz Vega [phone] REASON FOR VISIT appt for 08/14 Encounters Encounter Location Date Provider Diagnosis [facility] [address] [place] [address] 08/13/2024 Abdulaziz Flores Plan Of Treatment Next Appt Details Provider Name:Abdulaziz Flores , 11/29/2024 10:50:00 AM, [address] [place] [address] , [place], [place], [phone], Progress Notes * JACE SOTODOB: [birth year] (74 yo M)Acc No.[id number]:08/13/2024 Patient:?BRITTANY JACE :1950???Age:74 Y???Sex:Male Address:[address] [place] [address] [address] , [place], [address] * true * Date:? Generated for Printi ronnell/Jaylyn/eTransmitting on:?11/26/2024 04:15 PM EDT
--- OUTSIDE RECORDS SUMMARY | 2024-11-26 16:16 | XMS_ITS ---
Author Organization [facility] Address [address] [place] [address] Care Team Providers Care Clinical Program Consultant Name Role Phone Alfredo JEAN, Jaxon Primary Care Provider Abdulaziz Laura Unavailable [phone] Allergies Allergen (clinical drug ingredient) Drug/Non Drug [...] Interpretation Negative Section Notes: Nonsmoker; no alcohol Citizen Of [place]--came [place] in Problems Problem Type SNOMED Code ICD Code Onset Dates Problem Status W/U Status Risk Notes Problem Erosive esophagitis (76965024) Erosive esophagitis (K22.10) Active confirmed Vital Signs Temperature 96.9 degrees Fahrenheit 08/14/20 24 Blood pressure systolic 000 mm Hg 08/14/20 24 Blood pressure diastolic 00 mm Hg 024 Height 66 in 08/14/2024 Weight 193 lb 4 oz lbs 08/14/2024 BMI 31.19 kg/m2 08/14/2024 Encounters Encounter Location Date Provider Diagnosis [facility] [address] [place] [address] 08/14/2024 Abdulaziz Flores Gastroesophageal ref lux disease, [...] procedures Need to obtain clearance from your Strike Plate Attacher before the procedures Overall, Jace appears well. [...] procedures Need to obtain clearance from your Strike Plate Attacher before the procedures Future Test Test Name Order Date UPPER GI ENDOSCOPY 08/14/2024 COLONOSCOPY 08/14/2024 Next Appt Details Follow Up: prn, Reason: Provider Name:Abdulaziz Godwin Florse , 11/29/2024 10:50:00 AM, [address] [place] [address], [phone], Progress Notes * JACE SOTODOB: [birth year] (74 yo M)Acc No.[id number]:08/14/2024 Progress Notes Patient:?DOROTHY SOTOKVNG Provider:?Abdulaziz Flores MD :1950???Age:74 Y???Sex:Male Dedrick e:08/14/2024 Address:[address] [place], [place] [id number] Pcp:Jaxon Fuentes MD Subjective: * Chief Complaints: [...] in the past year??No,?Points?0,?Interpretation?Negative.?Miscellaneous:?Marital status: . 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 ???Nonsmoker; no alcohol Citizen Of [place]--came to [place] in . * Medications:?TakingHyoscyami ne [...] procedures Need to obtain clearance from your Strike Plate Attacher before the procedures?? 4.?Erosive esophagitis?Procedure: UPPER GI ENDOSCOPY (Ordered for 08/14/2024)* sched for 11/29/24 at 10:00 a mmac * Procedure Codes:?3017F COLOR ECTAL CA SCREEN DOC EID7251T TOBACCO NON-KMPJD0881 BP SCR NOT PRFRM REC REASON NOS [...] for Doris reynaga/Jaylyn/Crystal on:?11/26/2024 04:15 PM EDT History and Physical Notes * HPI [...]
== END ==
LOC: HO.CARD 13:44
PROVIDERS: PCP Internal Medicine; Visit Provider Nurse Practitioner Family
DX: I35.0 Nonrheumatic aortic (valve) stenosis (principal)
CPT/HCPCS: 93306; Q9957

== ENCOUNTER → 2024-11-26 13:47 | Outpatient (BNV) | payer MEDICARE, SELFPAY | PROVIDERS: PCP Internal Medicine; Visit Provider Internal Medicine Cardiovascular Disease | DX: I42.2 Other hypertrophic cardiomyopathy (principal); I35.0 Nonrheumatic aortic (valve) stenosis | CPT/HCPCS: 93306 ==

== ENCOUNTER 2024-11-29 09:30 | Day surgery (SDC) | payer MEDICARE, SELFPAY ==
[2024-11-27 13:52] VITALS: BMI 28.4
--- NOTE | 2024-11-28 12:08 | P.CONAN_ITS ---
Documented by User: Heike Molina NP 11/28/24 12:16 HPI - Anesthesia Eval Consult details Narrative: 74yo M for Upper Endoscopy and Colonoscopy Cardiac optimized. [place] [facility] [place] stenosis (CURRY = 1.06), nonobstructive CAD, SVT. [facility] Active Problems Active Problems: All Active Problems Preop cardiovascular exam (Acute) Hypertension (Acute) Hyperlipidemia (Acute) Encounter for initial annual wellness visit (AWV) in Medicare patient (Acute) Chest discomfort (Acute) History of paroxysmal supraventricular tachycardia (Acute) Arthritis (Acute) BPH (benign prostatic hyperplasia) (Acute) Screening for prostate cancer (Acute) Cough (Acute) Obesity (Acute) Type 2 diabetes mellitus with obesity (Acute) Trigger finger, right ring finger (Acute) Obesity (Acute) Polyarthralgia (Acute) Trigger finger (Acute) Bilateral shoulder pain (Acute) Encounter for annual wellness visit (AWV) in Medicare patient (Acute) Erosive esophagitis (Acute) Physical deconditioning (Acute) Diabetes mellitus (Acute) Aortic stenosis (Acute) S/P cardiac cath (Acute) BPH loc w urin obs/LUTS (Acute) Nephrolithiasis (Acute) Pulmonary emboli (Acute) DVT (deep venous thrombosis) (Acute) Chronic GERD (Acute) Past Medical History Medical History Aortic stenosis Pulmonary emboli DVT (deep venous thrombosis) COVID-19 Diabetes type 2, controlled Chronic GERD Nephrolithiasis BPH loc w urin obs/LUTS Irritable bowel syndrome Family History Family History Father Medical history unknown Mother Medical history unknown Family history of problems with anesthesia: No Surgical History Surgical History S/P cardiac cath History of colonoscopy History of hand surgery History of kidney stones History of Problems with Anesthesia: No Social History Social History Household Members: None Housing: Apartment Do you presently have visiting nurse or other home services: No Alcohol intake: never Comment: sitter in room Patient Tobacco Use Status: Never used Tobacco Tobacco use type: Cigarette e-Cigarette/Vaping Use: Never Used Second Hand Smoke Exposure: No Advance Directives: No Advance Directives Information Provided: Yes Advance Directives Date on File: 12/17/20 service: No Current occupational status: employed 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 ECHO 2024 Conclusions: - 1. Normal LV ejection fraction 55-60% with mild asymmetric septal hypertrophy with impaired relaxation filling pattern 2. Moderate to severe aortic stenosis, paradoxical low-flow 3. Mildly dilated ascending aorta at 3.7 cm 4. No gross pericardial effusion NM cardiolite stress test 2022 Impression: 1. Myocardial perfusion imaging study shows probably normal myocardial perfusion. No definitive evidence of any ischemia or infarction. 2. Gated LVEF is 69% during stress and 67% during rest. 3. Transient ischemic dilatation not present. EKG component of the test reported separately. Assessment and Plan Assessment Anesthesia Assessment: Chart Reviewed Final Anesthetic Review Family History of Problems with Anesthesia: No History of Problems with Anesthesia: No Documented by User: Wendy Sullivan MD 11/29/24 10:18 [facility] Past Medical History Medical History Aortic stenosis Pulmonary emboli DVT (deep venous thrombosis) COVID-19 Diabetes type 2, controlled Chronic GERD Nephrolithiasis BPH loc w urin obs/LUTS Irritable bowel syndrome Family History Family History Father Medical history unknown Mother Medical history unknown Surgical History Surgical History S/P cardiac cath History of colonoscopy History of hand surgery History of kidney stones Social History Social History Household Members: None Housing: Apartment Do you presently have visiting nurse or other home services: No Alcohol intake: never Comment: sitter in room Patient Tobacco Use Status: Never used Tobacco Tobacco use type: Cigarette e-Cigarette/Vaping Use: Never Used Second Hand Smoke Exposure: No Advance Directives: No Advance Directives Information Provided: Yes Advance Directives Date on File: 12/17/20 service: No Current occupational status: employed 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 Current occupational exposures/hazards: No Cognitive needs: No Hearing needs: No Vision needs: No Meds Allergies Allergy/AdvReac Type Severity Reaction Status Date / Time No Known Allergies Allergy Verified 11/29/24 10:09 Home Medications ?Medication ?Instructions ?Recorded ?Confirmed ?Last Taken ?Type lancets 28 gauge (FreeStyle #100 ea 02/02/21 11/25/24 Unknown History Lancets) Exam Airway Mallampati Class: III TM Dist: >3cm Neck ROM: Full Loose/Missing/Broken Teeth: No Heart: RRR Lungs: CTA Assessment and Plan Final Anesthetic Review NPO: Yes ASA Class: III Final Preanesthetic Review: Meds/Allgs Chart Reviewed, Consent Obtained/Reviewed and Anes Risks/Benef Reviewed Patient Risk: Intermediate Procedure Risk: Intermediate Anesthetic Plan Anesthetic Plan: MAC: Disposition: Standard PACU
[2024-11-29] MEDS: Lactated Ringers 1,000 ML 50 ML IVCONT (09:59)
[2024-11-29 10:08] VITALS: BP 154/89; PULSE 88; RESP 18; TEMP 36.8; O2SAT 98
[2024-11-29 10:12] LABS: Glucose, Whole Blood 147 mg/dL (60-115)
[2024-11-29 10:55] VITALS: BP 102/64; PULSE 64; RESP 18; TEMP 36.3; O2SAT 100
--- NOTE | 2024-11-29 11:07 | PM.OP ---
Brief Operative Note Date of Service: 11/29/24 Pre-op diagnosis: GERD, Screening Post-op diagnosis: other (Hiatal hernia, Diverticulosis, Poor prep) Procedure: EGD, Incomplete colonoscopy due to poor prep Surgeon: Abdulaziz Flores MD Anesthesia: MAC Was an Security Technician used for this Procedure?: No Estimated blood loss (mL): 0 Pathology: none sent Condition: stable Disposition: PACU
[2024-11-29 11:10] VITALS: BP 108/72; PULSE 69; RESP 18; O2SAT 97
[2024-11-29 11:15] VITALS: BP 110/87; PULSE 65; RESP 20; TEMP 36.3; O2SAT 98
--- NOTE | 2024-11-29 11:34 | OP_ITS ---
DATE OF SERVICE: 11/29/2024 SURGEON: Abdulaziz Flores MD INDICATIONS: The patient presents for evaluation of chronic gastroesophageal reflux, previous history of erosive esophagitis, previous history of tubular adenoma of the colon, and need for colorectal cancer screening. Full consent has been obtained from him for both procedures, including risks of bleeding and perforation. PREOPERATIVE DIAGNOSIS: POSTOPERATIVE DIAGNOSIS: PROCEDURE PERFORMED: Esophagogastroduodenoscopy and colonoscopy to the area of the ascending colon. ESTIMATED BLOOD LOSS: COMPLICATIONS: ANESTHESIA: Medication used, monitored anesthesia care. ASSISTANTS: SPECIMENS: PREOPERATIVE DIAGNOSES: Gastroesophageal reflux and history of erosive esophagitis, personal history of tubular adenoma of the colon, colorectal cancer screening. POSTOPERATIVE DIAGNOSES: Gastroesophageal reflux and history of erosive esophagitis, personal history of tubular adenoma of the colon, colorectal cancer screening, small hiatal hernia, diverticulosis, incomplete colonoscopy due to poor prep. DESCRIPTION OF PROCEDURE: The patient was placed in the left lateral decubitus position. The Olympus video gastroscope was passed in the posterior oropharynx and upper esophagus under direct vision. The scope was passed slowly into the distal esophagus. The gastroesophageal junction appeared at 36 cm. There was some slight irregularity consistent with reflux but no evidence of any esophagitis nor any definitive evidence of Qureshi mucosa. The scope entered the stomach. There was a small hiatal hernia. The scope was advanced to the pylorus, and the duodenum was cannulated to the descending portion. The duodenum including the bulb appeared normal without mass or ulceration. The scope was withdrawn back in the stomach. The gastric antrum and body appeared normal with good peristalsis. The scope was retroflexed visualizing the proximal stomach carefully, which appeared normal, without any sign of mass or ulceration. The scope was straightened and withdrawn back to the esophagus. The esophageal mucosa otherwise appeared normal. The scope was withdrawn from the patient. He was turned around for the colonoscopy. The digital rectal exam revealed no abnormalities. The Olympus video pediatric colonoscope was entered into the rectum and advanced to the area of what appeared to be the ascending colon. However, advancement revealed a very poor prep throughout the colon, and there was still retained solid stool proximal to where I was in the ascending colon. Visualization was quite limited. Therefore I did not attempt to advance further. The scope was slowly withdrawn assessing all mucosal surfaces carefully as best as possible, but again preparation was quite poor, which severely limited visualization. I did not visualize any polyps, colitis, nor angiodysplasia. There was a mild amount of sigmoid diverticulosis. In the rectum, scope was retroflexed visualizing some internal hemorrhoids, but no other pathology. The rectal mucosa appeared normal. The scope was straightened and withdrawn from the patient. He tolerated both procedures well and was returned to the recovery area in stable condition. IMPRESSION: 1. Small hiatal hernia, gastroesophageal reflux. 2. Diverticulosis. 3. Internal hemorrhoids. 4. Very limited colonoscopy and incomplete due to poor prep. PLAN: The patient has been advised to continue his daily omeprazole given his good response both symptomatically and endoscopically. He was advised to continue that long-term. I will recommend re-evaluation of the colon with a repeat colonoscopy with a 2 day prep, but if he does not want to do that, I would then recommend he at least obtain a Cologuard test from his primary care physician. This has all been discussed with his son. MD MONIKA Jacob/THAO / [id number]
== END 2024-11-29 12:14 | disposition home or self-care (01) ==
PROVIDERS: PCP Internal Medicine; Visit Provider Internal Medicine
PROC: (CPT 45378; principal; 2024-11-29 10:50)
DX: Z12.11 Encounter for screening for malignant neoplasm of colon (principal); Z86.0101 Personal history of adenomatous and serrated colon polyps; K57.30 Diverticulosis of large intestine without perforation or abscess without bleeding; K64.8 Other hemorrhoids; K58.9 Irritable bowel syndrome, unspecified; K21.9 Gastro-esophageal reflux disease without esophagitis; Z87.19 Personal history of other diseases of the digestive system; K44.9 Diaphragmatic hernia without obstruction or gangrene; K80.20 Calculus of gallbladder without cholecystitis without obstruction; N40.0 Benign prostatic hyperplasia without lower urinary tract symptoms; I10 Essential (primary) hypertension; I35.0 Nonrheumatic aortic (valve) stenosis; I47.10 Supraventricular tachycardia, unspecified; E11.9 Type 2 diabetes mellitus without complications; Z87.442 Personal history of urinary calculi; N32.81 Overactive bladder; F41.9 Anxiety disorder, unspecified; F41.0 Panic disorder [episodic paroxysmal anxiety]; Z86.711 Personal history of pulmonary embolism; Z79.899 Other long term (current) drug therapy; Z79.84 Long term (current) use of oral hypoglycemic drugs
CPT/HCPCS: 45378; 82947; J2003; J2704

== ENCOUNTER 2025-02-19 10:04 | Outpatient (AMB) | payer MEDICARE, SELFPAY ==
--- NOTE | 2025-02-19 10:35 | A.OFFVIS_ITS ---
Vital Signs 02/19/25 10:37 Height 5 ft 8 in Weight 187 lb 6.287 oz BMI 28.5 BP 120/72 Blood Pressure Location Lt brachial Position Sitting Pulse 98 Pulse Source Monitor Intake Visit Reasons: 3m follow up Intake Note: 3 mth f/up Senior Quality Control Technician Required: No Accompanied by: Self / Same As Patient Allergies No Known Allergies Allergy (Verified 11/29/24 10:09) Medication List - Last Reconciled 02/19/25 by Lloyd Gonzalez MD acetaminophen 650 mg (2 x 325 mg) PO Q6H PRN aluminum hydrox-magnesium carb 254-237.5 mg/5 mL (Gaviscon Extra Strength) 10 mL PO QID atorvastatin 20 mg PO BEDTIME blood sugar diagnostic (FreeStyle Lite Strips) TO CHECK BLOOD SUGar once a day blood-glucose meter (FreeStyle Lite Meter kit) TO CHECK BLOOD SUGARS THREE TIMES A DAY clotrimazole-betamethasone 1-0.05 % 1 appl topical BID 2 weeks gabapentin 100 mg PO BID lancets (FreeStyle Lancets) TO CHECK BLOOD SUGARS THREE TIMES A DAY metformin 1,000 mg PO BID omeprazole 40 mg PO BID tizanidine 4 mg PO Q8H PRN triamcinolone acetonide 0.5% 1 appl topical TID HPI Comments Details: [age] year gentleman who is referred to us for eyuccaul-ur-jthbpg 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 By echocardiography is aortic valve area is 1.06 cm2. Mean gradient is 25 mm Hg and dimensionless index is 0.23. He is complaining of dyspnea with activity especially when he goes upstairs. He also has off and on chest pains. These are usually when he is laying down. Physically not very active. He has background history of pulmonary embolism in the past and was on anticoagulation previously. No syncope. He had hypertension and hyperlipidemia and also has background of supraventricular tachycardia in the setting of upper GI bleed. No recent bleeding. He previously had cardiac catheterization in 2019 with no significant coronary disease was noted. [facility] Medical History Aortic stenosis Pulmonary emboli DVT (deep venous thrombosis) COVID-19 Diabetes type 2, controlled Chronic GERD Nephrolithiasis BPH loc w urin obs/LUTS Irritable bowel syndrome Surgical History S/P cardiac cath History of colonoscopy History of hand surgery History of kidney stones Family History Father Medical history unknown Mother Medical history unknown Social History Household Members: None Housing: Apartment Do you presently have visiting nurse or other home services: No Alcohol intake: never Comment: sitter in room Patient Tobacco Use Status: Never used Tobacco Tobacco use type: Cigarette e-Cigarette/Vaping Use: Never Used Second Hand Smoke Exposure: No Advance Directives Date on File: 12/17/20 service: No Current occupational status: employed 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 Current occupational exposures/hazards: No Cognitive needs: No Hearing needs: No Vision needs: No Review of Systems Const Denies chills, Denies fatigue, Denies fever(s), Denies frequent falls, Denies weakness, Denies weight gain and Denies weight loss ENT Denies dizziness Card Reports chest pain, Reports chest pain with activity, Denies leg edema, Denies lightheadedness, Denies palpitations, Reports dyspnea and Reports dyspnea on exertion Resp Denies cough, Reports dyspnea and Reports dyspnea on exertion GI Denies hematochezia Musc Denies abnormal gait, Denies muscle weakness, Denies numbness, Denies radiating pain into limb and Denies tingling Neuro Denies abnormal gait, Denies dizziness, Denies frequent falls, Denies numbness, Denies tingling and Denies weakness Endo Denies fatigue and Denies palpitations Physical Exam Vital Signs: Last Vital Signs Pulse 98 02/19/25 10:37 BP 120/72 02/19/25 10:37 BMI result Body Mass Index 28.5 GENERAL APPEARANCE: in no acute distress, pleasant. NECK: no carotid bruit, no jugular venous distention. SKIN: no suspicious lesions, warm and dry. HEART: Ejection systolic murmur aortic area with preserved 2nd heart sound, regular rate and rhythm. LUNGS: clear to auscultation bilaterally. ABDOMEN: soft, nontender. EXTREMITIES: no edema. PERIPHERAL PULSES: equal. NEUROLOGIC: No gross deficits, AAO X 3 Office Procedures EKG Details: Sinus rhythm with first-degree AV block FL interval 214 milliseconds, normal axis, left ventricular hypertrophy, QTC 467 milliseconds. 10264-Skmplfjyowdtiwydg, Complete Assessment & Plan Assessment & Plan (1) Aortic stenosis: Comment: follows w/HCS Code(s): I35.0 - Nonrheumatic aortic (valve) stenosis Category: Medical Qualifiers: Cardiac valve disease etiology: nonrheumatic Qualified Code(s): I35.0 - Nonrheumatic aortic (valve) stenosis Plan Pleasant 75 year gentleman who is referred to us for aortic valve stenosis. By echocardiography has cdhmawsv-te-qbqyua paradoxical low-flow low gradient aortic stenosis. He has dyspnea on exertion especially when he is going upstairs and uphill. He is getting some chest pains off and on but these symptoms are not clearly exertional. He also has background of hiatal hernia which can be playing a role in his chest discomfort. Blood pressure is well controlled. Clinically not in heart failure. We will do basic blood workup and arrange ucrr-lj-jdfcz heart catheterization to confirm severity of aortic stenosis. If he truly has severe aortic valve stenosis then we will discuss about aortic valve replacement. Thank you for allowing me to participate in the care of your patient. Please feel free to contact me if you have any questions. Orders: Orders Cardiac Cath GRICELDA Diagnostic 02/19/25 I35.0 - Nonrheumatic aortic (valve) stenosis B Type Natriuretic Peptide 02/19/25 I35.0 - Nonrheumatic aortic (valve) stenosis Basic Metabolic Panel 02/19/25 I35.0 - Nonrheumatic aortic (valve) stenosis Complete Blood Count no Diff 02/19/25 I35.0 - Nonrheumatic aortic (valve) stenosis Prothrombin Time INR 02/19/25 I35.0 - Nonrheumatic aortic (valve) stenosis Coding Level of Care Code New Pt Level 4 (69620) Complex EM visit Add On G2211 Diagnoses Nonrheumatic aortic valve stenosis I35.0 Cardiac valve disease etiology: nonrheumatic CPT Codes EKG - CPT: 30826-Zsiamwclsqnhgjgul, Complete ([id number])
[2025-02-19 10:37] VITALS: BP 120/72; PULSE 98; BMI 28.5
--- OUTSIDE RECORDS SUMMARY | 2025-02-19 11:22 | XMS_ITS ---
Author Organization [facility] Address [address] [place] [address] Care Team Providers Care Digital Sales Manager Name Role Phone Jaxon Fuentes MD Primary Care Provider Abdulaziz [place] Unavailable [phone] REASON FOR VISIT gerd,erosive esophagitis,screening. hx polyps Encounters Encounter Location Date Provider Diagnosis [facility] Outpatient [address] [place] [phone] 11/29/2024 Abdulaziz Flores Colon cancer scree marely [...] Appt Details Provider Name:Abdulaziz Flores , 03/03/2025 01:50:00 PM, [address] [place] [address], [phone], Progress Notes * JACE SOTODOB: [birth year] (75 yo M)Acc No.[id number]:11/29/2024 EGD and COL/MAC Patient:?JACE SOTO Provider:?Abdulaziz Flores MD :1950???Age:74 Y???Sex:Male Dedrick e:11/29/2024 Address:[address] [place], [place] [id number] Pcp:Jaxon Fuentes MD Subjective: * Chief Complaints: * ???1. Gerd,erosive esophagit is,screening. hx polyps. * Medical History:? Objective: * Vitals:? Assessment: * Assessment: 1.?Colon cancer screening - Z12.11 (Primary)???2.?Diverticulosis of large intestine without perforation or abscess without bleeding - K57.30???3.?Other hemorrhoids - K64.8???4.?Gastro-esophageal reflux disease without esophagitis - K21.9???5.?Hiatal hernia - K44.9??? Plan: * Treatment: * Procedure Codes:?32341 DIAGN OSTIC COLONOSCOPY, Modifiers: 53 , 0529F INTRVL 3+YRS PTS CLNSCP DOCD, 0528F RCMND FLW-UP 10 YRS DOCD, [address] UPPR GI ENDOSCOPY, DIAGNOSIS * * The named appointment provid er may or may not be the originator of this progress note, and it is not deemed complete until electronically signed by the appointment provider. Sign off status: Pending * Provider:?Abdulaziz Flores MD Date:? 025 Generated for Doris reynaga/Jaylyn/eTransmitting on:?02/19/2025 11:21 AM EDT
== END 2025-02-19 11:20 | disposition home or self-care (01) ==
LOC: HO.HCS 10:05
PROVIDERS: PCP Internal Medicine; Visit Provider Internal Medicine Cardiovascular Disease
DX: I35.0 Nonrheumatic aortic (valve) stenosis (principal)
CPT/HCPCS: 93010; 99204; G2211

== ENCOUNTER 2025-02-19 10:04 | Outpatient (REF) | payer MEDICARE, SELFPAY ==
[2025-02-19 11:49] LABS: Hematocrit 39.8 % (42.0-52.0); Hemoglobin 13.2 g/dl (14.0-18.0); Mean Corpuscular HGB Conc 33.2 g/dl (31.0-36.0); Mean Corpuscular Volume 87.5 fL (80.0-98.0); Mean Platelet Volume 9.9 fL (9.4-12.4); Platelet Count 205 X10*3/uL (160-400); Red Blood Count 4.55 X10*6/uL (4.60-5.80); Red Cell Distribution Width 13.2 % (11.0-16.0); White Blood Count 9.2 X10*3/uL (4.8-10.8)
[2025-02-19 11:56] LABS: Prothrombin Time 11.2 SEC (10.9-12.4)
[2025-02-19 12:24] LABS: Anion Gap 11 (12-20); Blood Urea Nitrogen 15 mg/dL (9-16); Calcium 9.5 mg/dL (8.4-10.2); Carbon Dioxide 22 mmol/L (22-29); Chloride 107 mmol/L (96-108); Estimated Glomerular Filt Rate > 60; Glucose Random 133 mg/dL (60-115); Sodium 136 mmol/L (135-145)
[2025-02-19 12:28] LABS: B Type Natriuretic Peptide 63 pg/mL (<100)
== END 2025-02-19 10:05 | disposition home or self-care (01) ==
LOC: HO.LAB 10:04
PROVIDERS: PCP Internal Medicine; Visit Provider Internal Medicine Cardiovascular Disease
DX: I35.0 Nonrheumatic aortic (valve) stenosis (principal)
CPT/HCPCS: 36415; 80048; 83880; 85027; 85610; 93005; 99202

== ENCOUNTER 2025-03-03 09:47 | Day surgery (SDC) | payer MEDICARE, SELFPAY ==
--- OUTSIDE RECORDS SUMMARY | 2025-01-13 14:33 | XMS_ITS ---
Author Organization [facility] Address [address] [place] [address] Care Team Providers Care Rn Acute Name Role Phone Alfredo JEAN, Jaxon Primary Care Provider Unavaila Abdulaziz Vega [phone] REASON FOR VISIT Patient presents today for abd pain, screening colon Encounters Encounter Location Date Provider Diagnosis [facility] [address] [place] [address] 08/20/2024 Abdulaziz Flores Plan Of Treatment Next Appt Details Provider Name:Abdulaziz Flores , 03/03/2025 01:40:00 PM, [address] [place] [address] , [place], [place], [phone], Progress Notes * JACE SOTODOB: [birth year] (74 yo M)Acc No.[id number]:08/20/2024 Progress Notes Patient:?JACE SOTO Provider:?Abdulaziz Flores MD :1950???Age:74 Y???Sex:Male Dedrick e:08/20/2024 Address:[address] [place] [address] [address] Pcp:Jaxon Fuentes MD Subjective: * Chief Complaints: [...] MD Date:? 024 Generated for Doris reynaga/Jaylyn/Crystal on:?01/13/2025 02:33 PM EDT
--- OUTSIDE RECORDS SUMMARY | 2025-01-13 14:33 | XMS_ITS ---
Author Organization [facility] Address [address] [place] [address] Care Team Providers Care Oil Agent Name Role Phone Alfredo JEAN, Jaxon Primary Care Provider Abdulaziz [place] [phone] REASON FOR VISIT Needs colon w/2 day prep Encounters Encounter Location Date Provider Diagnosis [facility] 10 [facility] [address] [place] [address] 12/01/2024 Abdulaziz Flores Plan Of Treatment Next Appt Details Provider Name:Abdulaziz Flores , 03/03/2025 01:40:00 PM, [address] [place] [address] , [place], [place], [phone], Progress Notes * GARRISONJENNYFER JACEDOB: [birth year] (74 yo M)Acc No.[id number]:12/01/2024 Patient:?JACE SOTO :1950???Age:74 Y???Sex:Male Address:[address] [place] [address] , [place], [address] Subjective: * Chief Complaints: * ???Needs colon w/2 day prep * Medical History:? * Surgical History:? * Hospitalization/Major Diagno stic Procedure:? * Medications:? Objective: * Vitals:? * Physical Examination:? Assessment: Plan: * Treatment: * Procedure Codes:? * true * Date:? Generated for Printi ng/Fajohng/eTransmitting on:?01/13/2025 02:32 PM EDT
--- OUTSIDE RECORDS SUMMARY | 2025-01-13 14:33 | XMS_ITS ---
Author Organization [facility] Address [address] [place] [address] Care Team Providers Care Enterprise Resource Planner Name Role Phone Jaxon Fuentes MD Primary Care Provider Abdulaziz [place] Unavailable [phone] REASON FOR VISIT gerd,erosive esophagitis,screening. hx polyps Encounters Encounter Location Date Provider Diagnosis [facility] [place] Outpatient [address] [place] [phone] 11/29/2024 Abdulaziz Flores Colon cancer scree marely [...] hernia (ICD-10 - K44.9) Plan Of Treatment Next Appt Details Provider Name:Abdulaziz Flores , 03/03/2025 01:40:00 PM, [address] [place] [address], [phone], Progress Notes * JACE SOTODOB: [birth year] (74 yo M)Acc No.[id number]:11/29/2024 EGD and COL/MAC Patient:?JACE SOTO Provider:?Abdulaziz Flores MD :1950???Age:74 Y???Sex:Male Dedrick e:11/29/2024 Address:[address] [place], [place] [phone] Pcp:Jaxon Fuentes MD Subjective: * Chief Complaints: * ???1. Gerd,erosive esophagit is,screening. hx polyps. * Medical History:? Objective: * Vitals:? Assessment: * Assessment: 1.?Colon cancer screening - Z12.11 (Primary)???2.?Diverticulosis of large intestine without perforation or abscess without bleeding - K57.30???3.?Other hemorrhoids - K64.8???4.?Gastro-esophageal reflux disease without esophagitis - K21.9???5.?Hiatal hernia - K44.9??? Plan: * Treatment: * Procedure Codes:?88370 DIAGN OSTIC COLONOSCOPY, Modifiers: 53 , 0529F INTRVL 3+YRS PTS CLNSCP DOCD, 0528F RCMND FLW-UP 10 YRS DOCD, [address] UPPR GI ENDOSCOPY, DIAGNOSIS * * The named appointment provid er may or may not be the originator of this progress note, and it is not deemed complete until electronically signed by the appointment provider. Sign off status: Pending * Provider:?Abdulaziz Flores MD Date:? 025 Generated for Doris reynaga/Jaylyn/eTransmitting on:?01/13/2025 02:32 PM EDT
--- OUTSIDE RECORDS SUMMARY | 2025-01-13 14:33 | XMS_ITS | Patient Health Record ---
Author Organization [facility] Address [address] [place] [address] Care Team Providers Care Manufacturing Teacher Name Role Phone Alfredo JEAN, Jaxon Primary Care Provider Abdulaziz [place] Unavailable [phone] Allergies Allergen (clinical drug ingredient) Drug/Non Drug Allergy documented on EMR Reaction Allergy Type Onset Date Status tamsulosin Flomax itchy rash Drug Allergy Activ e Results Component Value Reference Range Notes Glucose, Whole Blood Reviewed date:11/29/2024 04:19:39 PM Interpretation: Performing Lab:[facility], [address] [place] [phone] Notes/Report: Glucose, Whole Blood 147 60-115 mg/dL METER # : [id number] Reason For Referral No Information Medications Medication [...] Interpretation Negative Section Notes: Nonsmoker; no alcohol [place]; no alcohol [place]; no alcohol [place]; no alcohol [place] Problems Problem Type SNOMED Code ICD Code Onset Dates Problem Status W/U Status Risk Notes Problem 680400964 Encounter for screening for malignant neoplasm of colon (Z12.11) Active confirmed Problem 645951163 History of adenomatous polyp of colon (Z86.010) Active confirmed Problem 700240650 Abdominal bloati ng (R14.0) Active confirmed Problem 53827253 Gastritis, unspecified, without bleeding (K29.70) Active confirmed Problem 16988657 Calculus of gallbladder without cholecystitis without obstruction (K80.20) Active confirmed Problem 473513566 Gastroesophageal reflux disease, esophagitis presence not specified (K21.9) Active confirmed Problem Erosive esophagitis (79957824) Erosive esophagitis (K22.10) Active confirmed Problem 871162537 Abdominal pain, generalized (R10.84) Active confirmed Problem 209199663 Irritable bowel syndrome with constipation (K58.1) Active confirmed Problem 9315854 Chronic gastriti s without bleeding, unspecified gastritis type (K29.50) Active confirmed Problem 692239826 Adenomatous poly p of colon, unspecified part of colon (D12.6) Active confirmed Problem 49978404 Abdominal discomfort (R10.9) Active confirmed Vital Signs Temperature 96.9 degrees Fahrenheit 08/14/2024 Blood pressure diastolic 00 mm Hg 08/14/2024 Height 66 in 08/14/2024 Blood pressure systolic 000 mm Hg 08/14/2024 Weight 193 lb 4 oz lbs 08/14/2024 BMI 31.19 kg/m2 08/14/2024 Encounters Encounter Location Date Provider Diagnosis [facility] Out[place] [address] [place], [place] [phone] 11/29/2024 Abdulaziz Flores Colon cancer screeni ng Z12.11 ; Diverticulosis of large intestine without perforation or abscess without bleeding K57.30 ; Other hemorrhoids K64.8 ; Gastro-esophageal reflux disease without esophagitis K21.9 and Hiatal hernia K44.9 [facility] [address] [place] [phone] 08/14/2024 Abdulaziz Sandra Gastroesophageal ref lux disease, esophagitis presence not specified K21.9 ; History of adenomatous polyp of colon Z86.010 ; Encounter for screening for malignant neoplasm of colon Z12.11 ; Calculus of gallbladder without cholecystitis without obstruction K80.20 and Erosive esophagitis K22.10 [facility] [address] [address] 08/12/2024 Abdulaziz Flores [facility] [address] [place] [address] 08/13/2024 Abdulaziz Flores [facility] 10 [facility] [address] [place] [phone] 12/01/2024 Abdulaziz Flores Assessments Encounter Date Diagnosis (ICD Code) Assessment Notes Treatment Notes Treatment Clinical Notes Section Notes 11/29/2024 Colon cancer screening (ICD-10 - Z12.11) 11/29/2024 Diverticulosis of large intestine without perforation or abscess without bleeding (ICD-10 - K57.30) 08/14/2024 History of adenomatous polyp of colon [...] to keep you advised of his progress. 11/29/2024 Other hemorrhoids (ICD-10 - K64.8) 08/14/2024 Encounter for screening for malignant neoplasm of colon (ICD-10 - Z12.11) Do not take the Metformin the night before or on the morning of the procedures Need to obtain clearance from your Drum Operator before the procedures Overall, Jace appears well. [...] to keep you advised of his progress. 11/29/2024 Gastro-esophageal reflux disease without esophagitis (ICD-10 - K21.9) 08/14/2024 Calculus of gallbladder without cholecystitis without [...] to keep you advised of his progress. 11/29/2024 Hiatal hernia (ICD-10 - K44.9) 08/14/2024 Erosive esophagitis (ICD-10 - K22.10) Overall, [...] Appt Details Provider Name:Abdulaziz Godwin Flores , 03/03/2025 01:40:00 PM, [address] [place] [address], [id number], Insurance Providers Payer Name Payer Address Payer Phone Subscriber Number Group Number Insured Name Patient Relationship to Insured Coverage Start Date Coverage End Date MEDICARE OF [place] [address] [place] [address] [place] [id number] JACE SOTO Self - patient is the insured Medical (General) History Medical History History ICD Code Denies AR,CVA,Lung disease,renal disease NIDDM Hypertension Kidney stones--s/p cystos, ESWL, and ravi nts Colonoscopy in 12/[address] Monahan--s mall tubular adenomas removed Hjcrzvemju-wgircpzrrvde-xgb Dr. Chandler and the plan is for [...] for ki dney stones SVT Aortic stenosis--sees [facility] Cardiology COVID 2020--with hospitalization and com plicated course EGD 2020--UGI bleed during h is COVID infection and hospitalization--had an EGD with the finding of erosive esophagitis and duodenal ulcer DVT with PE during his COVID infection a nd hospitalization in 2020 Surgical History Surgery Date(Month/Year)
[2025-03-03 11:12] LABS: Glucose, Whole Blood 122 mg/dL (60-115)
[2025-03-03] MEDS: Lactated Ringers 1,000 ML 80 ML IVCONT (11:12)
--- NOTE | 2025-03-03 11:22 | P.CONAN_ITS ---
[facility] Active Problems Active Problems: All Active Problems (Updated 11/27/24 @ 13:55 by Luzmaria Phelan RN) Preop cardiovascular exam (Acute) Hypertension (Acute) Hyperlipidemia (Acute) Encounter for initial annual wellness visit (AWV) in Medicare patient (Acute) Chest discomfort (Acute) History of paroxysmal supraventricular tachycardia (Acute) Arthritis (Acute) BPH (benign prostatic hyperplasia) (Acute) Screening for prostate cancer (Acute) Cough (Acute) Obesity (Acute) Type 2 diabetes mellitus with obesity (Acute) Trigger finger, right ring finger (Acute) Obesity (Acute) Polyarthralgia (Acute) Trigger finger (Acute) Bilateral shoulder pain (Acute) Encounter for annual wellness visit (AWV) in Medicare patient (Acute) Erosive esophagitis (Acute) Physical deconditioning (Acute) Diabetes mellitus (Acute) Aortic stenosis (Acute) S/P cardiac cath (Acute) BPH loc w urin obs/LUTS (Acute) Nephrolithiasis (Acute) Pulmonary emboli (Acute) DVT (deep venous thrombosis) (Acute) Chronic GERD (Acute) Past Medical History Medical History Aortic stenosis Pulmonary emboli DVT (deep venous thrombosis) COVID-19 Diabetes type 2, controlled Chronic GERD Nephrolithiasis BPH loc w urin obs/LUTS Irritable bowel syndrome Functional capacity: independent ambulation Family History Family History Father Medical history unknown Mother Medical history unknown Family history of problems with anesthesia: No Surgical History Surgical History S/P cardiac cath History of colonoscopy History of hand surgery History of kidney stones History of Problems with Anesthesia: No Social History Social History Household Members: None Housing: Apartment Housing Other:: I rent a room Are you a primary child care lead teacher to a significant other at home: No Do you presently have visiting nurse or other home services: No Alcohol intake: never Comment: sitter in room Patient Tobacco Use Status: Never used Tobacco Tobacco use type: Cigarette e-Cigarette/Vaping Use: Never Used Second Hand Smoke Exposure: No Have you been hit, kicked, punched, or otherwise hurt by someone within the past year? 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 Current occupational exposures/hazards: No Cognitive needs: No Hearing needs: No Vision needs: No Meds Allergies Allergy/AdvReac Type Severity Reaction Status Date / Time No Known Allergies Allergy Verified 03/03/25 10:48 Active Medications: Current Medications Lactated Ringer's (Lr) 1,000 mls @ 80 mls/hr IVCONT .[id number] EKATERINA Last Admin: 03/03/25 11:12 Dose: 80 mls/hr Sodium Biphosphate/Sodium Phosphate (Sodium Phosphate,[place]-Dibasic 133 Ml Enema) 133 ml LA ONCE PRN PRN Reason: Poor Colonoscopy Prep Results Home Medications ?Medication ?Instructions ?Recorded ?Confirmed ?Last Taken ?Type lancets 28 gauge (FreeStyle #100 ea 02/02/21 03/03/25 Unknown History Lancets) Exam Height,Weight and Vital Signs: Height 5 ft 6 in Weight 84.368 kg Pertinent Lab Results Pertinent Lab Results: Laboratory Tests 03/03/25 10:59 POC Glucose 122 H Airway Mallampati Class: III TM Dist: >3cm Neck ROM: Full Heart: RRR Lungs: CTA Assessment and Plan Assessment Anesthesia Assessment: Anesthesia Plan Discussed Final Anesthetic Review Family History of Problems with Anesthesia: No History of Problems with Anesthesia: No NPO: Yes ASA Class: III Final Preanesthetic Review: Meds/Allgs Chart Reviewed, Consent Obtained/Reviewed and Anes Risks/Benef Reviewed Patient Risk: Intermediate Procedure Risk: Low Anesthetic Plan Anesthetic Plan: MAC: Disposition: Standard PACU
[2025-03-03] MEDS: Sodium Phosphate,Mono-Dibasic 133 ML ENEMA PR (12:23)
[2025-03-03 14:25] VITALS: BP 90/50; PULSE 72; RESP 18; TEMP 36.1; O2SAT 96
--- NOTE | 2025-03-03 14:30 | PM.OP ---
Brief Operative Note Date of Service: 03/03/25 Pre-op diagnosis: Screening Post-op diagnosis: other (Diverticulosis) Procedure: Colonoscopy to the cecum Surgeon: Abdulaziz Flores MD Was an Apartment Leasing Agent used for this Procedure?: No Estimated blood loss (mL): 0 Pathology: none sent Condition: stable Disposition: PACU
[2025-03-03 14:36] VITALS: BP 114/68; PULSE 77; RESP 18; TEMP 36.1; O2SAT 98
--- NOTE | 2025-03-04 00:49 | OP_ITS ---
DATE OF SERVICE: 03/03/2025 SURGEON: Abdulaziz Flores MD INDICATIONS: The patient presents for followup of personal history of tubular adenoma of the colon and previous colonoscopy earlier this year with an incomplete exam due to poor prep. Full consent was obtained from him for this, including risks of bleeding and perforation. PREOPERATIVE DIAGNOSIS: POSTOPERATIVE DIAGNOSIS: PROCEDURE PERFORMED: Colonoscopy to the cecum. ESTIMATED BLOOD LOSS: COMPLICATIONS: ANESTHESIA: Medication used, monitored anesthesia care. ASSISTANTS: SPECIMENS: PREOPERATIVE DIAGNOSES: Personal history of tubular adenoma of the colon, colorectal cancer screening. POSTOPERATIVE DIAGNOSES: Personal history of tubular adenoma of the colon, colorectal cancer screening, diverticulosis, and internal hemorrhoids. DESCRIPTION OF PROCEDURE: The patient was placed in the left lateral decubitus position. The digital rectal exam revealed no abnormalities. The Olympus video pediatric colonoscope was entered into the rectum and advanced to the region of the cecum. Once in the cecum, I did identify normal-appearing ileocecal valve and appendiceal orifice. There was transillumination of light deep in the right lower quadrant. The entire cecum, for the most part was visualized, but did have some retained vegetable matter and stool. Time was spent irrigating and suctioning, which allowed good visualization of the cecum, although not 100%. I did not visualize any abnormalities in the cecum. The scope was then slowly withdrawn assessing all mucosal surfaces carefully. Preparation throughout the colon was much better than last time, but there was still some residual vegetable matter and stool in the ascending colon. Time was spent irrigating and suctioning away, allowing better visualization, but not 100%. Visualization in the transverse colon, descending colon, and sigmoid colon was very good with a much better prep than the last time. I did not visualize any polyps, colitis, nor angiodysplasia. There was a mild amount of sigmoid diverticulosis. In the rectum, scope was retroflexed visualizing some internal hemorrhoids, but no other pathology. The rectal mucosa appeared normal. The scope was straightened out and withdrawn from the patient. He tolerated the procedure well and was returned to recovery area in stable condition. IMPRESSION: 1. Diverticulosis. 2. Internal hemorrhoids. PLAN: At this point, even though the exam was not 100% complete due to the prep, I would hold off on any further attempts atscreening colonoscopies given his age, the fact that he has had previous colonoscopies in 2014 and 2019 with removal of only small polyps, and his associated comorbidities. He is currently otherwise asymptomatic from a GI standpoint and does not have any worrisome symptoms to suggest any colonic pathology at this time. I have advised him to see me again as needed. This has been discussed with his family. MD MONIKA Jacob/THAO / [id number] MTDD
== END 2025-03-03 15:00 | disposition home or self-care (01) ==
PROVIDERS: PCP Internal Medicine; Visit Provider Internal Medicine
PROC: 0DJD8ZZ Inspection of Lower Intestinal Tract, Via Natural or Artificial Opening Endoscopic (ICD-10-PCS; CPT 45378; principal; 2025-03-03 12:50)
DX: Z12.11 Encounter for screening for malignant neoplasm of colon (principal); K57.30 Diverticulosis of large intestine without perforation or abscess without bleeding; K64.8 Other hemorrhoids; Z86.0101 Personal history of adenomatous and serrated colon polyps; K21.9 Gastro-esophageal reflux disease without esophagitis; E11.9 Type 2 diabetes mellitus without complications; I10 Essential (primary) hypertension; E78.5 Hyperlipidemia, unspecified; Z86.718 Personal history of other venous thrombosis and embolism; Z79.02 Long term (current) use of antithrombotics/antiplatelets; Z79.84 Long term (current) use of oral hypoglycemic drugs; Z79.899 Other long term (current) drug therapy
CPT/HCPCS: G0105; 82947; J2003; J2704

== ENCOUNTER → 2025-03-11 23:59 | Outpatient (BNV) | payer MEDICARE, SELFPAY | PROVIDERS: PCP Internal Medicine; Visit Provider Internal Medicine Cardiovascular Disease | DX: R93.1 Abnormal findings on diagnostic imaging of heart and coronary circulation (principal); I25.118 Atherosclerotic heart disease of native coronary artery with other forms of angina pectoris | CPT/HCPCS: 93460; 93571; 99152 ==

== ENCOUNTER 2025-03-25 08:14 | Outpatient (AMB) | payer MEDICARE, SELFPAY ==
--- OUTSIDE RECORDS SUMMARY | 2024-11-29 06:50 | XMS_ITS ---
Author Organization [facility] Address [address] [place] [address] Care Team Providers Care Counselor Marriage And Family Name Role Phone Jaxon Fuentes MD Primary Care Provider Abdulaziz Laura Unavailable [phone] REASON FOR VISIT gerd,erosive esophagitis,screening. hx polyps Encounters Encounter Location Date Provider [place] [facility] [place] [address] [place], [place] [phone] 11/29/2024 Abdulaziz Flores Colon cancer scree marely [...] * JACE SOTODOB: [birth year] (75 yo M)Acc No.[id number]:11/29/2024 EGD and COL/MAC Patient: Dee CENTENO ABDZULEMA Provider: Carlin Flores MD :1950 A ge:74 Y S ex:Male Date:11/29/2024 Address:[address] [place] [address] [address] [facility] Pcp:Jaxon Fuentes MD Subjective: * Chief Complaints: [...] DOCD, 0528F RCMND FLW-UP 10 YRS DOCD, [address] UPPR GI ENDOSCOPY, DIAGNOSIS * * The named appointment provid er may or may not be the originator of this progress note, and it is not deemed complete until electronically signed by the appointment provider. Sign off status: Pending * Provider: Carlin Flores MD Date: 0 11/29/2024 Generated for Doris reynaga/Jaylyn/Adrianaitting on: 0 03/25/2025 08:20 AM EDT
--- OUTSIDE RECORDS SUMMARY | 2025-03-25 08:21 | XMS_ITS | Patient Health Record ---
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 Name Role Phone Alfredo JEAN, Jaxon Primary Care Provider Unavaila Frantz Trejo Unavailable [phone] Reason For Referral No Information Medications Medication SIG (Take, Route, Frequency, Duration) Notes Start Date End Date Status metFORMIN HCl 500 MG 1 tablet with a brian l Orally Once a day; Duration: 30 day(s) Active Extra Depth Orthopedic Shoes (1 Pair) with Customized Heat Molded Multidensity Innersoles (3 Pair) as directed Dx: NIDDM (E11.9), Hammertoe Foot Deformity (M20.41,M20.42), Preulcerative Skin Lesion(s) (L85.1) 06/19/2020 Active Immunizations Vaccine Route Administration Date Status Comme nts Influenza Unknown 04/30/2020 Administered Social History Tobacco Use: Social History Observation Description Date Details (start date - stop date) Former Smoker NA - NA Tobacco Use/Smoking Question Answer Notes Are you a: former smoker Additional Findings: Tobacco Non-User Current no n-smoker Alcohol Screen Question Answer Notes Did you have a drink containing alcohol in the p ast year? No Points 0 Interpretation Negative Tobacco use other than smoking: Question Answer Notes Are you an other tobacco user? No Problems Problem Type SNOMED Code ICD Code Onset Dates Problem Status W/U Status Risk Notes Problem Tinea unguium (639546834) Tinea unguium (B35.1) Active confirmed Problem Type 2 diabetes mellitus without complication (E11.9) Active confirmed Plan Of Treatment Pending Test Test Name Order Date [id number]-[id number] NAIL, 6 OR MORE 06/19/2020 Insurance Providers Payer Name Payer Address Payer Phone Subscriber Number Group Number Insured Name Patient Relationship to Insured Coverage Start Date Coverage End Date Medicare National [employer]t Sv[employer] [address] [place] [phone] [id number] Mariposa Davis Self - patient is the insured Medical (General) History Medical History History ICD Code Anxiety Arthritis Back,Hip,and Knee pain Depression type II diabetes Diverticulosis Gall bladder problems Gout Headaches/Migraines Kidney disease Reflux ( GERD) skin ulcer Vascular phlebitis (clots) Surgical History Surgery Date(Month/Year) Hospitalization History Reason Date(Month/Year) [facility] [place] chest pain 2019
[2025-03-25 08:31] VITALS: BP 114/72; PULSE 71; BMI 30.2
--- NOTE | 2025-03-25 08:31 | MHC.OFFVIS ---
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: No Allergies No Known Allergies Allergy (Verified 03/25/25 08:35) Medication List - Last Reconciled 03/25/25 by Yaquelin Palm, HEAD OF ACADEMIC TECHNOLOGY-C acetaminophen 650 mg (2 x 325 mg) PO Q6H PRN aluminum hydrox-magnesium carb 254-237.5 mg/5 mL (Gaviscon Extra Strength) 10 mL PO QID atorvastatin 20 mg PO BEDTIME blood sugar diagnostic (FreeStyle Lite Strips) TO CHECK BLOOD SUGar once a day blood-glucose meter (FreeStyle Lite Meter kit) TO CHECK BLOOD SUGARS THREE TIMES A DAY clotrimazole-betamethasone 1-0.05 % 1 appl topical BID 2 weeks gabapentin 100 mg PO BID lancets (FreeStyle Lancets) TO CHECK BLOOD SUGARS THREE TIMES A DAY metformin 1,000 mg PO BID omeprazole 40 mg PO BID tizanidine 4 mg PO Q8H PRN triamcinolone acetonide 0.5% 1 appl topical TID HPI HPI 2 wk s/p cath KM: Details: Mariposa is a 75 yo male with PMH of DM, HTN, moderate aortic stenosis, minimal nonobstructive CAD on cath 2018, SVT episode 2020, who recently underwent cardiac catheterization to further evaluate degree of aortic stenosis and coronary arteries and now presents for follow-up. Today he reports that he has been feeling generally well since his last visit here in February. His GI symptoms have been controlled recently with the use of omeprazole. He is vague reports of shortness of breath and some chest discomfort though nothing consistent. No heart palpitations, lightheadedness, presyncope, syncope. No PND, orthopnea or edema. 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 Right radial catheterization site is feeling good. Taking all meds as directed. [facility] Medical History Aortic stenosis Pulmonary emboli DVT (deep venous thrombosis) COVID-19 Diabetes type 2, controlled Chronic GERD Nephrolithiasis BPH loc w urin obs/LUTS Irritable bowel syndrome Surgical History S/P cardiac cath History of colonoscopy History of hand surgery History of kidney stones Family History Father Medical history unknown Mother Medical history unknown Social History Household Members: None Housing: Apartment Housing Other:: I rent a room Are you a primary manager intensive care unit to a significant other at home: No Do you presently have visiting nurse or other home services: No Alcohol intake: never Comment: sitter in room Patient Tobacco Use Status: Never used Tobacco Tobacco use type: Cigarette e-Cigarette/Vaping Use: Never Used Second Hand Smoke Exposure: No Advance Directives Date on File: 12/17/20 service: No Current occupational status: employed 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 Current occupational exposures/hazards: No Cognitive needs: No Hearing needs: No Vision needs: No Review of Systems Const All systems reviewed & are unremarkable except as noted in HPI and below ENT Denies dizziness Card Details: at times has vague chest pains and will get sob with activity Denies chest pain, Denies chest pain at rest, Denies chest pain with activity, Denies rapid heart rate, Denies pedal edema, Denies edema, Denies leg edema, Denies lightheadedness, Denies palpitations, Denies dyspnea, Denies dyspnea on exertion and Denies orthopnea Resp Denies cough, Denies dyspnea and Denies dyspnea on exertion GI Denies hematochezia and Denies change in stool character Musc Denies abnormal gait, Denies limited range of motion, Denies muscle cramps, Denies muscle weakness, Denies numbness, Denies radiating pain into limb, Denies stiffness and Denies tingling Neuro Denies abnormal gait, Denies dizziness, Denies numbness and Denies tingling Endo Denies palpitations Physical Exam Vital Signs: Last Vital Signs Pulse 71 03/25/25 08:31 BP 114/72 03/25/25 08:31 BMI result Body Mass Index 30.2 Const General: cooperative, healthy appearing, comfortable and no acute distress Orientation/consciousness: patient oriented x3 Neck Neck: Yes normal visual inspection and Yes no JVD Resp Effort & Inspection: normal respiratory effort Auscultation: clear to auscultation bilaterally, no crackles, no rales, no rhonchi and no wheezes Cardio Jugular venous distension: no JVD Rate: regular rate Rhythm: regular rhythm Heart sounds: S2 normal heart sound present, Murmur heart sound present (systolic, 3/6 left sternal border, second heart sound audible) and no rubs Peripheral pulses: Peripheral pulses 2+ throughout Neuro General: patient oriented x3 Extrem Other: right radial cath site well healed, easily palpable right radial pulse General: Yes normal to inspection, No no pedal edema and No calf tenderness Psych Appearance: grossly normal Mental Status: mental status grossly normal Speech and movement: Normal speech and movement present Assessment & Plan Assessment & Plan (1) Chest discomfort: Code(s): R07.89 - Other chest pain Category: Medical Plan: Prior reports of atypical chest discomfort sounding more like GI, reflux. He has been on omeprazole and reports control of the symptoms. He has cardiac risk factors of age, HTN, DM. Cardiac evaluation included minimal nonbstructive CAD on cardiac cath 05/24/2019. A nuclear stress test done 06/08/2023 showing normal myocardial perfusion imaging. Cardiac catheterization 03/11/2025 showing at [id number] coronary disease and moderate . - his chest discomfort is noncardiac. Reviewed this with him in detail. Continue to follow with Dr. Flores for GI. Continue management for nonobstructive coronary artery disease including atorvastatin with ideal LDL goal less than 70. He is not on daily aspirin due to GI issues. Signs and symptoms of true angina reviewed with him. (2) Aortic stenosis: Comment: follows w/[facility] Code(s): I35.0 - Nonrheumatic aortic (valve) stenosis Category: Medical Qualifiers: Cardiac valve disease etiology: nonrheumatic Qualified Code(s): I35.0 - Nonrheumatic aortic (valve) stenosis Plan: History of aortic stenosis which is being followed with serial echocardiograms. Most recent echo 11/26/2024 showed EF 55-60%, moderate to severe aortic stenosis, paradoxical low-flow. He was having vague symptoms of shortness of breath and chest discomfort. He underwent cardiac catheterization which confirmed moderate aortic valve stenosis. Cardinal signs of severe discussed. Continue statin. Cardiology follow-up 6 months, sooner if needed. (3) S/P cardiac cath: Comment: 05/24/2019 LAD minimal luminal irregularities. Other vessels normal 03/11/2025, OM2 70% stenosis, IFR negative, lad mild stenosis, less than 30%, proximal RCA ostial 40% stenosis, moderate aortic stenosis Code(s): Z98.890 - Other specified postprocedural states Category: Surgical Plan: Right radial catheterization site well healed (4) History of paroxysmal supraventricular tachycardia: Code(s): Z86.79 - Personal history of other diseases of the circulatory system Category: Medical Plan: Episode of SVT during hospital admission for 2020. At that time he was seen in Cardiology consult. He was started on metoprolol however his current med list does not include metoprolol. He is not reported any concerning heart palpitations. (5) Hyperlipidemia: Code(s): E78.5 - Hyperlipidemia, unspecified Category: Medical Plan: [place] LDL goal < 70 in pt with diabetes and CAD. Also has aortic stenosis. Labs 11/22/2024 showed LDL 93. Will increase atorvastatin up to 40 mg daily. Plan I discussed with the patient the findings of mild coronary artery disease and moderate aortic valve stenosis, emphasizing the importance of regular monitoring and follow-up. We reviewed the management of gastroesophageal reflux disease with omeprazole and dietary modifications to prevent exacerbation. We discussed the signs of worsening aortic stenosis and he was instructed to call us if he is having concerning symptoms. Medications: New atorvastatin (Lipitor) dose increased 40 mg PO BEDTIME 90 tabs 3RF 90 days Discontinued atorvastatin Discontinued Reason: Doctor's Order 20 mg PO BEDTIME 90 tabs 3RF Patient Instructions: - Monitor for any worsening of shortness of breath or chest discomfort and report immediately. - Continue taking omeprazole daily and avoid high-fat foods. - Start high dose of atorvastatin. - Follow up in six months for cardiac evaluation. Patient was informed and verbally consented to the use of an ambient scribe for clinic note documentation during this visit. Visit time spent on chart review, interview, assessment, orders, documentation. Coding Level of Care Code Est Pt Level 4 (17219) Complex EM visit Add On G2211 Diagnoses Chest discomfort R07.89 Nonrheumatic aortic valve stenosis I35.0 Cardiac valve disease etiology: nonrheumatic S/P cardiac cath Z98.890 History of paroxysmal supraventricular tachycardia Z86.79 Hyperlipidemia E78.5 Time Spent (min) 32
== END 2025-03-25 09:11 | disposition home or self-care (01) ==
LOC: HO.HCS 08:15
PROVIDERS: PCP Internal Medicine; Visit Provider Nurse Practitioner Family
DX: R07.89 Other chest pain (principal); I35.0 Nonrheumatic aortic (valve) stenosis; Z98.890 Other specified postprocedural states; Z86.79 Personal history of other diseases of the circulatory system; E78.5 Hyperlipidemia, unspecified
CPT/HCPCS: 99214; G2211

== ENCOUNTER → 2025-03-25 08:14 | Outpatient (BNVA) | payer MEDICARE, SELFPAY | PROVIDERS: PCP Internal Medicine; Visit Provider Nurse Practitioner Family | DX: R07.89 Other chest pain (principal); I35.0 Nonrheumatic aortic (valve) stenosis; E78.5 Hyperlipidemia, unspecified; Z98.890 Other specified postprocedural states; Z86.79 Personal history of other diseases of the circulatory system; Z79.84 Long term (current) use of oral hypoglycemic drugs; Z79.899 Other long term (current) drug therapy | CPT/HCPCS: 99212 ==

== ENCOUNTER 2025-04-02 17:11 | Outpatient (AMB) | payer MEDICARE, SELFPAY ==
[2025-04-02 17:17] VITALS: BP 126/82; BMI 30.7
--- NOTE | 2025-04-02 17:17 | MHC.PC.OV ---
Vital Signs 04/02/25 17:17 Height 5 ft 6 in Weight 190 lb BMI 30.7 BP 126/82 Blood Pressure Location Lt brachial Position Sitting Intake Visit Reasons: PAIGE from Dr Alfredo fuchs per Zoe Air Tester Required: No Accompanied by: Son Allergies No Known Allergies Allergy (Verified 04/02/25 17:22) Medication List - Last Reconciled 04/02/25 by Ronna Wright MD acetaminophen 650 mg (2 x 325 mg) PO Q6H PRN aluminum hydrox-magnesium carb 254-237.5 mg/5 mL (Gaviscon Extra Strength) 10 mL PO QID atorvastatin (Lipitor) 40 mg PO BEDTIME 90 days blood sugar diagnostic (FreeStyle Lite Strips) TO CHECK BLOOD SUGar once a day blood-glucose meter (FreeStyle Lite Meter kit) TO CHECK BLOOD SUGARS THREE TIMES A DAY clotrimazole-betamethasone 1-0.05 % 1 appl topical BID 2 weeks gabapentin 100 mg PO BID lancets (FreeStyle Lancets) TO CHECK BLOOD SUGARS THREE TIMES A DAY metformin 1,000 mg PO BID omeprazole 40 mg PO BID tizanidine 4 mg PO Q8H PRN triamcinolone acetonide 0.5% 1 appl topical TID Tobacco use date assessed: 11/22/24 Dental Screening Dental Screen Date: 11/22/24 HPI HPI Comments History of Present Illness Details This is a 75-year-old male that comes accompanied by son to transfer of care from Dr. Beebe retired. He has diabetes mellitus type 2 and his A1c 7.7% today which has worsened from 7.6% the last time and he is taking metformin and I will add pioglitazone to his regimen. He does have aortic stenosis which is follow by cardiology which is moderate by now. Occasionally complains of shortness of breath but not as prominent as it was before. He also has hyperlipidemia and lipid panel will be order for his LDL goal to be less than 70. GERD has been stable with PPIs and has history of upper GI bleeding. He also complains of bilateral leg paresthesias and pain burning like in quality most likely due to neuropathy. Gabapentin 100 at bedtime is not relieving the pain. I will increase gabapentin to 300 mg 3 times a day. Order nerve conduction study. Complains of leg being cold and increase in pain when walking and I will refer him to vascular surgery. PFSH Medical History (Updated 04/03/25 @ 03:06 by Ronna Wright MD) Aortic stenosis Pulmonary emboli DVT (deep venous thrombosis) COVID-19 Diabetes type 2, controlled Chronic GERD Nephrolithiasis BPH loc w urin obs/LUTS Irritable bowel syndrome Surgical History S/P cardiac cath History of colonoscopy History of hand surgery History of kidney stones Family History Father Medical history unknown Mother Medical history unknown Social History Household Members: None Housing: Apartment Housing Other:: I rent a room Are you a primary landcare officer to a significant other at home: No Do you presently have visiting nurse or other home services: No Alcohol intake: never Comment: sitter in room Patient Tobacco Use Status: Never used Tobacco e-Cigarette/Vaping Use: Never Used Second Hand Smoke Exposure: No Advance Directives Date on File: 12/17/20 service: No 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 1. Little interest or pleasure in doing things: not at all 2. Feeling down, depressed, or hopeless: not at all 3. Trouble falling or staying asleep, or sleeping too much: nearly every day 4. Feeling tired or having little energy: nearly every day 5. Poor appetite or overeating: not at all 6. Feeling bad about yourself - or that you are a failure or have let yourself or your family down: nearly every day 7. Trouble concentrating on things, such as reading the newspaper or watching television: nearly every day 8. Moving or speaking so slowly that other people could have noticed. Or the opposite - being so fidgety or restless that you have been moving around a lot more than usual: not at all 9. Thoughts that you would be better off or of hurting yourself in some way: not at all Total score: 12 Depression Screening Interpretation: Positive Depression Screening Follow-up: Existing condition and Follow-up Visit Requested Depression Screening Done: Yes 45643 - PHQ-9 Billing: Yes Source: Developed by Drs. Abdulaziz Hopson, Mellissa Booth, Rodríguez Singh and colleagues, with an educational mickie from [employer]. Thrive Questionnaire Date Thrive assessed: 11/22/24 I am a: Patient What is your living situation today?: I do not have a steady places to live I am temporarily staying with others Within the past 12 months, did the food you bought not last and you didn't have the money to get more?: Often true Within the past 12 months, did you worry whether your food would run out before you got money to buy more?: Sometimes True Do you have trouble paying for medicines?: Yes Do you have trouble getting transportation to medical appointments?: Yes Do you have trouble paying your heating and electricity bill?: Yes Do you have trouble taking care of your child, family member or friend?: Yes Do you have trouble with day-to-day activities such as bathing, preparing meals, shopping, managing finances, etc.?: Yes Are you currently unemployed and looking for a job?: Yes Are you interested in more education?: I choose not to answer this question Please select the resources that you would like help with: Housing/Custodial, Food, Paying for medicine, Transportation, Utilities, Care for elder or disabled and Daily support Currently or been in a relationship where the following occur: Controlled Financially and Controlled Emotionally THRIVE Score: 7 AUDIT C Alcohol Use Questionnaire (AUDIT-C) 1. How often do you have a drink containing alcohol?: Never Total Score: 0 Score Reviewed/Action Taken: No SIXTO-7 AMB Questionnaire SIXTO-7 Date SIXTO - 7 assessed: 11/22/24 Feeling nervous, anxious, or on edge: 3 = Nearly every day Not being able to stop or control worryin = Nearly every day Worrying too much about different things: 3 = Nearly every day Trouble relaxin = Nearly every day Being so restless that it is hard to sit still: 3 = Nearly every day Becoming easily annoyed or irritable: 3 = Nearly every day Feeling afraid as if something awful might happen: 3 = Nearly every day Total SIXTO-7 score (0-4 normal; 5-9 mild; 10-14 moderate; 15-21 severe): 21 Source: Developed by Drs. Abdulaziz Hopson, Mellissa Booth, Rodríguez Singh and colleagues, with an educational mickie from [employer]. SIXTO-7 Assessment Billing SIXTO-7 Assessment Tool: SIXTO-7 Assessment 07138 Review of Systems Const All systems reviewed & are unremarkable except as noted in HPI and below Card Denies chest pain at rest, Denies chest pain with activity, Denies edema, Denies irregular heart rhythm, Denies claudication, Denies dyspnea, Denies dyspnea on exertion, Denies orthopnea, Denies paroxysmal nocturnal dyspnea and Denies slow heart rate Resp Denies cough, Denies dyspnea and Denies dyspnea on exertion GI Denies abdominal pain, Denies change in bowel habits, Denies excessive flatus, Denies nausea and Denies vomiting Denies urinary hesitancy, Denies urinary incontinence and Denies urinary urgency Physical exam (Primary Care) Vital Signs: Last Vital Signs BP 126/82 04/02/25 17:17 BMI result Body Mass Index 30.7 Tobacco/Smoking Status: Tobacco use Status Tobacco use date assessed 11/22/24 04/02/25 17:21 Patient Tobacco Use Status Never used Tobacco 04/02/25 17:21 Tobacco use type 04/02/25 17:21 e-Cigarette/Vaping Use Never Used 04/02/25 17:21 PHQ-9: PHQ-9 Score PHQ-9: Total score 12 04/02/25 17:25 Depression Screening Interpretation: Positive Depression Screening Follow-up: Existing condition and Follow-up Visit Requested Thrive Assessment: Date of Thrive Assessment Date Thrive assessed 11/22/24 04/02/25 17:21 Currently or been in a relationship where the following occur: Controlled Financially and Controlled Emotionally Resp Effort & Inspection: normal respiratory effort Auscultation: clear to auscultation bilaterally Cardio Jugular venous distension: no JVD Rate: regular rate Rhythm: regular rhythm Heart sounds: S1 normal heart sound present and S2 normal heart sound present Extrem General: Yes full ROM Results AMB Hemoglobin A1c AMB Hemoglobin A1c 7.7 % Last Edit by ANH Garcia on 04/02/25 17:30 Results Reviewed Results Reviewed: Laboratory Last Values Hgb A1c (Clinic) 7.7 % (4.0-6.0) H 04/02/25 17:26 Coding Level of Care Code Est Pt Level 4 (51883) Complex EM visit Add On G2211 Diagnoses Nonrheumatic aortic valve stenosis I35.0 Cardiac valve disease etiology: nonrheumatic Hyperlipidemia E78.5 Diabetes mellitus E11.9 Chronic GERD K21.9 Leg paresthesia R20.2 Additional Codes SIXTO-7 Assessment Billing - SIXTO-7 Assessment Tool: SIXTO-7 Assessment 59824 ([id number]) PHQ-9 - 93922 - PHQ-9 Billing: Yes ([id number]) Time Spent (min) 22 Assessment & Plan Assessment & Plan (1) Aortic stenosis: Comment: follows w/HCS Code(s): I35.0 - Nonrheumatic aortic (valve) stenosis Category: Medical Qualifiers: Cardiac valve disease etiology: nonrheumatic Qualified Code(s): I35.0 - Nonrheumatic aortic (valve) stenosis Plan: Follow-up with Cardiology. (2) Hyperlipidemia: Code(s): E78.5 - Hyperlipidemia, unspecified Category: Medical Plan: Repeat lipid panel. LDL goal is less than 70. Continue statins. (3) Diabetes mellitus: Code(s): E11.9 - Type 2 diabetes mellitus without complications Category: Medical Plan: Continue metformin start Actos. A1c goal is equal or less than 7%. (4) Chronic GERD: Code(s): K21.9 - Gastro-esophageal reflux disease without esophagitis Category: Medical Plan: Continue PPIs. (5) Leg paresthesia: Code(s): R20.2 - Paresthesia of skin Category: Medical Plan: Increase gabapentin to 300 mg 3 times a day. Nerve conduction study ordered. Orders: Orders AMB Hemoglobin A1c 04/02/25 E11.9 - Type 2 diabetes mellitus without complications Lipid Panel 04/02/25 E78.5 - Hyperlipidemia, unspecified Microalbumin, Random (w Creat) 04/02/25 R80.9 - Proteinuria, unspecified Vitamin B12 and Folate Today E53.8 - Deficiency of other specified B group vitamins IRON PROFILE Today D64.9 - Anemia, unspecified NE electromyogram (EMG) Today R20.2 - Paresthesia of skin Comprehensive [place]. Panel Fast 04/02/25 I10 - Essential (primary) hypertension Complete Blood Count Auto Diff Today D64.9 - Anemia, unspecified NE nerve conduction velocity Today R20.2 - Paresthesia of skin Referrals Vascular Surgery Referral I87.2 - Venous insufficiency (chronic) (peripheral) Medications: New pioglitazone 15 mg PO DAILY 90 tabs 0RF 90 days gabapentin 300 mg PO TID 90 caps 0RF 30 days Refilled metformin 1,000 mg PO BID 60 tabs 0RF omeprazole 40 mg PO BID 60 caps 3RF tizanidine 4 mg PO Q8H PRN 60 tabs 0RF muscle spasticity acetaminophen 650 mg (2 x 325 mg) PO Q6H PRN 30 tabs 0RF Pain, Mild (Pain Scale 1-3) blood sugar diagnostic (FreeStyle Lite Strips) TO CHECK BLOOD SUGar once a day 100 ea 1RF DX:E11.9
== END 2025-04-02 17:43 | disposition home or self-care (01) ==
LOC: HO.HMCH 17:12
PROVIDERS: PCP Internal Medicine; Visit Provider Internal Medicine
DX: E11.9 Type 2 diabetes mellitus without complications (principal)

== ENCOUNTER → 2025-04-02 17:11 | Outpatient (BNVA) | payer MEDICARE, SELFPAY | PROVIDERS: PCP Internal Medicine; Visit Provider Internal Medicine | DX: I35.0 Nonrheumatic aortic (valve) stenosis (principal); E78.5 Hyperlipidemia, unspecified; E11.9 Type 2 diabetes mellitus without complications; R20.2 Paresthesia of skin; K21.9 Gastro-esophageal reflux disease without esophagitis | CPT/HCPCS: 83036; 96127; 99212 ==

== ENCOUNTER 2025-04-04 08:59 | Outpatient (REF) | payer MEDICARE, SELFPAY ==
--- OUTSIDE RECORDS SUMMARY | 2024-11-29 06:50 | XMS_ITS ---
Author Organization [facility] Address [address] [place] [address] Care Team Providers Care Automation Architect Name Role Phone Jaxon Fuentes MD Primary Care Provider Abdulaziz Laura Unavailable [phone] REASON FOR VISIT gerd,erosive esophagitis,screening. hx polyps Encounters Encounter Location Date Provider [place] [facility] [place] [address] [place], [place] [phone] 11/29/2024 Abdulaziz Flores Colon cancer scree marely [...] * JACE SOTODOB: [birth year] (75 yo M)Acc No.[id number]:11/29/2024 EGD and COL/MAC Patient: Dee CENTENO ABDZULEMA Provider: Carlin Flores MD :1950 A ge:74 Y S ex:Male Date:11/29/2024 Address:[address] [place] [address] [address] [facility] Pcp:Jaxon Fuentes MD Subjective: * Chief Complaints: [...] DOCD, 0528F RCMND FLW-UP 10 YRS DOCD, [address]396 UPPR GI ENDOSCOPY, DIAGNOSIS * * The named appointment provid er may or may not be the originator of this progress note, and it is not deemed complete until electronically signed by the appointment provider. Sign off status: Pending * Provider: Carlin Flores MD Date: 0 11/29/2024 Generated for Doris reynaga/Jaylyn/Adrianaitting on: 0 04/04/2025 09:19 AM EDT
[2025-04-04 09:17] LABS: MANUAL DIFF FLAG NO
--- OUTSIDE RECORDS SUMMARY | 2025-04-04 09:20 | XMS_ITS | Patient Health Record ---
Author Organization [facility] Janine edward [place] Address [address] [place] [address] Care Team Providers Care Sample Steamer Name Role Phone Alfredo JEAN, Jaxon Primary Care Provider Unavaila Frantz Trejo Unavailable [phone] Reason For Referral No Information Medications Medication [...] W/U Status Risk Notes Problem Tinea unguium ([id number]) Tinea unguium (B35.1) Active confirmed Problem Type 2 diabetes mellitus without complication (E11.9) Active confirmed Plan Of Treatment Pending Test Test Name Order Date [id number] NAIL, 6 OR MORE 06/19/2020 Insurance Providers Payer Name Payer Address Payer Phone Subscriber Number Group Number Insured Name Patient Relationship to Insured Coverage Start Date Coverage End Date Medicare National Govt Svcs Inc [address] [place] [phone] [id number] Mariposa Davis Self - patient is the insured Medical (General) History Medical History History ICD Code Anxiety Arthritis Back,Hip,and Knee pain Depression type II diabetes Diverticulosis Gall bladder problems Gout Headaches/Migraines Kidney disease Reflux ( GERD) skin ulcer Vascular phlebitis (clots) Surgical History Surgery Date(Month/Year) Hospitalization History Reason Date(Month/Year) [facility]- chest pain 2019
[2025-04-04 09:42] LABS: Hematocrit 39.0 % (42.0-52.0); Hemoglobin 13.0 g/dl (14.0-18.0); Imm Gran Abs Auto 0.02 X10*3/uL (0.00-0.03); Imm Gran Pct Auto 0.2 % (0.0-0.4); Lymphocytes Absolute Auto 3.6 X10*3/uL (1.2-4.9); Mean Corpuscular HGB Conc 33.3 g/dl (31.0-36.0); Mean Corpuscular Hemoglobin 28.8 pg (27.0-33.0); Mean Corpuscular Volume 86.5 fL (80.0-98.0); NRBC Abs Auto 0.000 X10*3/uL (0.0-0.012); NRBC Pct Auto 0.0 /100WBC (0.0-0.2); Platelet Count 238 X10*3/uL (160-400); Red Blood Count 4.51 X10*6/uL (4.60-5.80); White Blood Count 9.6 X10*3/uL (4.8-10.8)
[2025-04-04 10:12] LABS: Alanine Aminotransferase 11 U/L (0-40); Albumin Level 4.4 g/dL (3.5-5.0); Alkaline Phosphatase 77 U/L (39-117); Anion Gap 16 (12-20); Aspartate Amino Transferase 19 U/L (5-37); Blood Urea Nitrogen 11 mg/dL (9-16); Calcium 9.2 mg/dL (8.4-10.2); Carbon Dioxide 23 mmol/L (22-29); Chloride 106 mmol/L (96-108); Cholesterol 135 mg/dL (<200); Estimated Glomerular Filt Rate > 60; HDL Cholesterol 45 mg/dL (>40); Iron 57 mcg/dL (45-160); Percent Iron Saturation 16 % (15-50); Potassium 3.9 mmol/L (3.3-5.1); Sodium 141 mmol/L (135-145); Total Iron Binding Capacity 347 mcg/dL (228-428); Total Protein 7.5 g/dL (6.5-8.0); Triglycerides 75 mg/dL (<150); Unsaturated Iron Binding 290 ug/dL
[2025-04-04 10:45] LABS: Folate 15.7 ng/mL (> or = 4.0); Vitamin B12 273 pg/mL (200-900)
[2025-04-04 10:54] LABS: Microalbum/Creatinine Ratio Ur 8.5 ug/mg cr (<30)
== END 2025-04-04 09:00 | disposition home or self-care (01) ==
LOC: HO.LAB 08:59
PROVIDERS: PCP Internal Medicine; Visit Provider Internal Medicine
DX: I10 Essential (primary) hypertension (principal); E78.5 Hyperlipidemia, unspecified; E53.8 Deficiency of other specified B group vitamins; D64.9 Anemia, unspecified; R80.9 Proteinuria, unspecified
CPT/HCPCS: 36415; 80053; 80061; 82043; 82570; 82607; 82746; 83540; 85025

== ENCOUNTER 2025-04-09 08:33 | Outpatient (REF) | payer MEDICARE, SELFPAY ==
--- OUTSIDE RECORDS SUMMARY | 2024-11-29 06:50 | XMS_ITS ---
Author Organization [facility] Address [address] [place] [address] Care Team Providers Care Inbound Sales Manager Name Role Phone Jaxon Fuentes MD Primary Care Provider Abdulaziz Laura Unavailable [phone] REASON FOR VISIT gerd,erosive esophagitis,screening. hx polyps Encounters Encounter Location Date Provider Diagnosis [facility] [place] [address] [place], [place] [phone] 11/29/2024 Abdulaziz Flores Colon cancer scree marely [...] * JACE SOTODOB: [birth year] (75 yo M)Acc No.[id number]:11/29/2024 EGD and COL/MAC Patient: Dee CENTENO ABDZULEMA Provider: Carlin Flores MD :1950 A ge:74 Y S ex:Male Date:11/29/2024 Address:[address] [place] [address] [address] [facility] Pcp:Jaxon Fuentes MD Subjective: * Chief Complaints: [...] DOCD, 0528F RCMND FLW-UP 10 YRS DOCD, [address] UPPR GI ENDOSCOPY, DIAGNOSIS * * The named appointment provid er may or may not be the originator of this progress note, and it is not deemed complete until electronically signed by the appointment provider. Sign off status: Pending * Provider: Carlin Flores MD Date: 0 11/29/2024 Generated for Doris reynaga/Jaylyn/Adrianaitting on: 0 04/09/2025 08:46 AM EDT
--- NOTE | 2025-04-09 08:35 | EMG_ITS ---
Chief complaint: Pain and numbness, both feet, especially in the bottom, at least 6-7 months History of diabetes Reason for referral: Evaluate for neuropathy Referred by: Dr. David Wright Procedure done: Bilateral lower extremity NCS/EMG Precautions and/or limitations: None The limb temperature was monitored continuously and remained between 32-36 degrees C during the performance of the NCS. Nerve Conduction Studies Anti Sensory Summary Table ?Stim Site NR Onset (ms) Norm Onset (ms) Peak (ms) Norm Peak (ms) O-P Amp (?V) Norm O-P Amp Site1 Site2 Delta-0 (ms) Dist (cm) Baron (m/s) Norm Baorn (m/s) Left Sural Anti Sensory (Lat Mall) Calf ? 2.6 3.0 <4.0 6.0 >5.0 Calf Lat Mall 2.6 14.0 54 Right Sural Anti Sensory (Lat Mall) Calf ? 2.8 3.6 <4.0 3.6 >5.0 Calf Lat Mall 2.8 14.0 50 Motor Summary Table ?Stim Site NR Onset (ms) Norm Onset (ms) O-P Amp (mV) Norm O-P Amp iAmp (mV) Amp (1st) (%) Site1 Site2 Delta-0 (ms) Dist (cm) Baron (m/s) Norm Baron (m/s) Right Peroneal Motor (Ext Dig Brev) Ankle ? 3.8 <4.0 4.6 >2.5 5.5 100.0 Ankle Ext Dig Brev 3.8 0.0 B Fib ? 10.3 5.4 6.5 117.4 B Fib Ankle 6.5 30.0 46 >40 Poplt ? 11.6 5.0 6.1 108.7 Poplt B Fib 1.3 6.5 50 >40 Left Tibial Motor (Abd Davis Brev) Ankle ? 3.6 <5 5.4 >2.5 6.8 100.0 Ankle Abd Davis Brev 3.6 0.0 Knee ? 11.4 4.3 5.5 79.6 Knee Ankle 7.8 35.0 45 >40 Right Tibial Motor (Abd Davis Brev) Ankle ? 4.1 <5 1.5 >2.5 1.7 100.0 Ankle Abd Davis Brev 4.1 0.0 Knee ? 11.6 1.1 1.5 73.3 Knee Ankle 7.5 35.0 47 >40 EMG ?Side Muscle Nerve Root Ins Act Fibs Psw Amp Dur Poly Recrt Int Pat Comment Right AbdHallucis MedPlantar S1-2 Incr 1+ 1+ Nml Nml 0 Nml Complete Right AntTibialis Dp Br Peron L4-5 Incr 1+ 1+ Nml Nml 0 Nml Complete Right PostTibialis Tibial L5, S1 Nml Nml Nml Nml Nml 0 Nml Complete Right MedGastroc Tibial S1-2 Nml Nml Nml Nml Nml 0 Nml Complete Right VastusMed Femoral L2-4 Nml Nml Nml Nml Nml 0 Nml Complete Left AbdHallucis MedPlantar S1-2 Nml Nml Nml Nml Nml 0 Nml Complete Left AntTibialis Dp Br Peron L4-5 Nml Nml Nml Nml Nml 0 Nml Complete Left PostTibialis Tibial L5, S1 Nml Nml Nml Nml Nml 0 Nml Complete Left MedGastroc Tibial S1-2 Nml Nml Nml Nml Nml 0 Nml Complete Left VastusMed Femoral L2-4 Nml Nml Nml Nml Nml 0 Nml Complete Right BicepsFemS Sciatic L5-S1 Nml Nml Nml Nml Nml 0 Nml Complete Right GluteusMed SupGluteal L4-S1 Incr 1+ 1+ Nml Nml 0 Nml Complete Paraspinal EMG ?Side Muscle Nerve Root Ins Act Fibs Psw Comment Right Lumbar Upper Rami Nml Nml Nml Right Lumbar Mid Rami Nml Nml Nml Right Lumbar Lower Rami Incr 1+ 1+ Left Lumbar Upper Rami Nml Nml Nml Left Lumbar Mid Rami Nml Nml Nml Left Lumbar Lower Rami Nml Nml Nml FINDINGS: Right tibial nerve showed normal distal latency, small amplitude and normal conduction velocity. Right sural nerve showed normal peak latencies but small amplitude. All other nerves tested were within normal. Concentric needle EMG was performed in selected muscles of the bilateral lower extremity and lumbar paraspinals. Study revealed signs of electric abnormalities as shown in the table above. Right AH, tibialis anterior, gluteus medius showed increased insertional activity, PSWs and fibrillations. Right lower lumbar paraspinals showed increased insertional activity, PSWs and fibrillations. IMPRESSION: 1. This is an abnormal study. 2. There is electrodiagnostic evidence for right L5-S1 radiculopathy. 3. Cannot completely rule out a beginning peripheral neuropathy, given abnormal right sural nerve but normal on left. 4. There is no electrodiagnostic evidence for peroneal neuropathy, lumbosacral plexopathy, or lumbar radiculopathy. Thank you for your kind referral. Victoria Cole MD, MORALES Board Certified, [place] Board of Physical Medicine and Rehabilitation (ABPMR) Board Certified, [place] Board of Electrodiagnostic Medicine (ABEM) CODIN 94214 x 2 MTDD
--- OUTSIDE RECORDS SUMMARY | 2025-04-09 08:47 | XMS_ITS | Patient Health Record ---
Author Organization [facility] Janine edward [place] Address [address] [place] [address] Care Team Providers Care Janitor Supervisor Name Role Phone Alfredo JEAN, Jaxon Primary Care Provider Unavaila Frantz Trejo Unavailable [phone] Reason For Referral No Information Medications Medication [...] W/U Status Risk Notes Problem Tinea unguium ([id number]) Tinea unguium (B35.1) Active confirmed Problem Type 2 diabetes mellitus without complication (E11.9) Active confirmed Plan Of Treatment Pending Test Test Name Order Date [id number] NAIL, 6 OR MORE 06/19/2020 Insurance Providers Payer Name Payer Address Payer Phone Subscriber Number Group Number Insured Name Patient Relationship to Insured Coverage Start Date Coverage End Date Medicare National Govt Svcs Inc [address] [place] [phone] [id number] Mariposa Davis Self - patient is the insured Medical (General) History Medical History History ICD Code Anxiety Arthritis Back,Hip,and Knee pain Depression type II diabetes Diverticulosis Gall bladder problems Gout Headaches/Migraines Kidney disease Reflux ( GERD) skin ulcer Vascular phlebitis (clots) Surgical History Surgery Date(Month/Year) Hospitalization History Reason Date(Month/Year) [facility]- chest pain 2019
== END 2025-04-09 08:34 | disposition home or self-care (01) ==
LOC: HO.NEURO 08:33
PROVIDERS: PCP Internal Medicine; Visit Provider Internal Medicine
DX: R20.2 Paresthesia of skin (principal); M79.672 Pain in left foot; M79.671 Pain in right foot; R94.131 Abnormal electromyogram [EMG]
CPT/HCPCS: 95886; 95909

== ENCOUNTER → 2025-04-09 08:35 | Outpatient (BNV) | payer MEDICARE, SELFPAY | PROVIDERS: PCP Internal Medicine; Visit Provider Physical Medicine & Rehabilitation | DX: M54.16 Radiculopathy, lumbar region (principal) | CPT/HCPCS: 95886; 95909 ==

== ENCOUNTER 2025-05-20 10:16 | Outpatient (AMB) | payer MEDICARE, SELFPAY ==
--- OUTSIDE RECORDS SUMMARY | 2024-08-20 05:30 | XMS_ITS ---
Author Organization [facility] Address [address] [place] [phone] Care Team Providers Care Luncheonette Operator Name Role Phone Alfredo JEAN, Jaxon Primary Care Provider Abdulaziz Laura [phone] REASON FOR VISIT Patient presents today for abd pain, screening colon Encounters Encounter Location Date Provider Diagnosis [facility] [address] [facility] [address] [place] [phone] 08/20/2024 Abdulaziz Flores Plan Of Treatment No Information Progress Notes * JACE SOTODOB: [birth year] (75 yo M)Acc No.[id number]:08/20/2024 Progress Notes Patient: JACE RODRÍGUEZ Provider: Carlin Flores MD :1950 A ge:74 Y S ex:Male Date:08/20/2024 Address:[address] [place], [place] [id number] Pcp:Jaxon Fuentes MD Subjective: * Chief Complaints: [...] Flores MD Date: 1 10/21/2023 Generated for Printi ng/Faxing/eTransmitting on: 0 05/20/2025 12:03 PM EDT
--- OUTSIDE RECORDS SUMMARY | 2024-11-29 06:50 | XMS_ITS ---
Author Organization [facility] Address [address] [place] [address] Care Team Providers Care Newsstand Vendor Name Role Phone Jaxon Fuentes MD Primary Care Provider Abdulaziz Laura Unavailable [phone] REASON FOR VISIT gerd,erosive esophagitis,screening. hx polyps Encounters Encounter Location Date Provider [place] [facility] [address] [place], [place] [phone] 11/29/2024 Abdulaziz Flores Colon cancer scree marely [...] * JACE SOTODOB: [birth year] (75 yo M)Acc No.[id number]:11/29/2024 EGD and COL/MAC Patient: Dee CENTENO ABDZULEMA Provider: Carlin Flores MD :1950 A ge:74 Y S ex:Male Date:11/29/2024 Address:[address] [place] [address] [address] [facility] Pcp:Jaxon Fuentes MD Subjective: * Chief Complaints: [...] DOCD, 0528F RCMND FLW-UP 10 YRS DOCD, [address] UPPR GI ENDOSCOPY, DIAGNOSIS * * The named appointment provid er may or may not be the originator of this progress note, and it is not deemed complete until electronically signed by the appointment provider. Sign off status: Pending * Provider: Carlin Flores MD Date: 0 11/29/2024 Generated for Doris reynaga/Jaylyn/Adrianaitting on: 0 05/20/2025 12:02 PM EDT
--- OUTSIDE RECORDS SUMMARY | 2025-03-03 08:50 | XMS_ITS ---
Author Organization [facility] Address [address] [place] [address] Care Team Providers Care Acetylene Cutter Name Role Phone Jaxon Fuentes MD Primary Care Provider Abdulaziz Laura Unavailable [phone] REASON FOR VISIT screening,hx polyps Encounters Encounter Location Date Provider Diagnosis [facility] [place] Out[place] [address] [place], [place] [phone] 03/03/2025 Abdulaziz Flores Colon cancer scree marely [...] * BRITTANY JACEDOB: [birth year] (75 yo M)Acc No.[id number]:03/03/2025 COLON WITH MAC Patient: JACE RODRÍGUEZ Provider: Carlin Flores MD :1950 A ge:75 Y S ex:Male Date:03/03/2025 Address:[address] [place] [address] [address] , [place], [place] Pcp:Jaxon Fuentes MD Subjective: * Chief Complaints: [...] MD Date: 0 03/03/2025 Generated for Doris reynaga/Jaylyn/Hayleysmitting on: 0 05/20/2025 12:03 PM EDT
--- NOTE | 2025-05-20 10:26 | MHC.OFFVIS ---
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 Does get weakness in bilateral LE. Pt states it worsened after he got covid. He was in rehab s/p covid admit for 2 months. Hx of clot in leg, had filter placement. 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 Complaints include pain over varicosities, swelling of lower extremities, cramping, fatigue, and heaviness of the lower extremities. 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 It is noted more so in right leg. He states that issues became significantly worse after COVID. He also has significant neuropathy. Patient denies any previous venous surgery or injections. Patient notes prior history of DVT with IVC filter placement. Once again this was post COVID Patient denies any history of phlebitis. Trial of compression includes - [id number] They now present for vascular evaluation regarding their varicose veins. [facility] Medical History Aortic stenosis Pulmonary emboli DVT (deep venous thrombosis) COVID-19 Diabetes type 2, controlled Chronic GERD Nephrolithiasis BPH loc w urin obs/LUTS Irritable bowel syndrome Surgical History S/P cardiac cath History of colonoscopy History of hand surgery History of kidney stones Family History Father Medical history unknown Mother Medical history unknown Social History Household Members: None Housing: Apartment Housing Other:: I rent a room Are you a primary career center advisor to a significant other at home: No Do you presently have visiting nurse or other home services: No Alcohol intake: never Comment: sitter in room Patient Tobacco Use Status: Never used Tobacco e-Cigarette/Vaping Use: Never Used Second Hand Smoke Exposure: No Advance Directives Date on File: 12/17/20 service: No Current occupational status: employed 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 Current occupational exposures/hazards: No Cognitive needs: No Hearing needs: No Vision needs: No Review of Systems Const Reports as per HPI ENT Reports no additional complaints Card Denies chest pain, Denies chest pain at rest and Denies chest pain with activity Resp Denies chest congestion and Denies cough GI Reports no additional complaints Musc Details: pain over varicosities, aching of lower extremities, swelling, cramping, heaviness and tiredness, itching Denies abnormal gait Skin/Breast Reports pruritus and Denies wounds Neuro Reports no additional complaints and Denies abnormal gait Psych Denies no additional complaints Physical Exam Vital Signs: BMI result Body Mass Index 30.7 Const General: cooperative, healthy appearing and comfortable Orientation/consciousness: oriented to person, oriented to place and oriented to time Neck Carotids: no bruits Chest Chest palpation & inspection: normal inspection of the chest and normal palpation of entire chest wall Resp Effort & Inspection: normal respiratory effort and able to speak in complete sentences Cardio Rate: regular rate Heart sounds: S1 normal heart sound present and S2 normal heart sound present Peripheral pulses: Peripheral pulses 2+ throughout GI Inspection: Yes normal to inspection Skin Other: +2 edema, large rope-like varicosities greater than 4 mm CEAP Classification C4 - skin color changes Ep - Etiology Primary As - superficial veins P - reflux General skin exam: dry skin Neuro General: oriented to person, oriented to place and oriented to time Extrem Right lower extremity: full ROM, normal capillary refill and edema Left lower extremity: full ROM, normal capillary refill and edema Psych Mental Status: mental status grossly normal Assessment & Plan Assessment & Plan (1) Varicose veins of right lower extremity with inflammation: Code(s): I83.11 - Varicose veins of right lower extremity with inflammation Category: Medical Plan: In short, the patient has evidence of venous insufficiency. I have discussed the pathophysiology with the patient. In addition I have provided informational material regarding venous disease to the patient. We have discussed conservative measures including compression, elevation, and exercise. I have also provided a handout regarding appropriate use of compression stockings and where to purchase good compression stockings as well. I have taken the liberty of ordering venous insufficiency testing with the patient. They will follow up with me after testing. The patient had an opportunity to ask questions regarding the treatment plan. All questions were answered. Imaging studies, laboratory studies and physical exam results were discussed and reviewed in detail. No major barriers to understanding were identified. The patient expressed understanding and agreement with the above treatment plan. The patient is aware they should contact our office by phone for worsening of the current condition or the appearance of new symptoms. Thank you for allowing me to participate in the vascular care of this patient. If you have any questions or concerns regarding the treatment for the above condition please do not hesitate to contact me. The office telephone contact is [phone]. This note is constructed using voice recognition software. While every effort has been made to ensure accuracy, membership solicitor errors may have been included. Thank you for allowing me to participate in the care of your patient. Yours sincerely, Teja Del Toro MD, FACS, R.P.V.I. Orders: Orders US venous duplex LE BI Today I83.11 - Varicose veins of right lower extremity with inflammation Coding Level of Care Code New Pt Level 4 (36685) Diagnoses Varicose veins of right lower extremity with inflammation I83.11
[2025-05-20 10:27] VITALS: BMI 30.7
--- OUTSIDE RECORDS SUMMARY | 2025-05-20 12:03 | XMS_ITS | Patient Health Record ---
Author Organization [facility] Janine edward Tray Address [address] [place] [address] Care Team Providers Care Certified Composites Technician Name Role Phone Alfredo JEAN, Jaxon Primary Care Provider Unavaila Frantz Trejo Unavailable [phone] Reason For Referral No Information Medications Medication [...] W/U Status Risk Notes Problem Tinea unguium (385217441) Tinea unguium (B35.1) Active confirmed Problem Type II diabetes mellitus without complication (224350991) Type 2 diabetes mellitus without complication (E11.9) Active confirmed Plan Of Treatment Pending Test Test Name Order Date [id number] NAIL, 6 OR MORE 06/19/2020 Insurance Providers Payer Name Payer Address Payer Phone Subscriber Number Group Number Insured Name Patient Relationship to Insured Coverage Start Date Coverage End Date Medicare National Govt Svcs Inc [address] [place] [phone] [id number] Mariposa Davis Self - patient is the insured Medical (General) History Medical History History ICD Code Anxiety Arthritis Back,Hip,and Knee pain Depression type II diabetes Diverticulosis Gall bladder problems Gout Headaches/Migraines Kidney disease Reflux ( GERD) skin ulcer Vascular phlebitis (clots) Surgical History Surgery Date(Month/Year) Hospitalization History Reason Date(Month/Year) [facility]- chest pain 2018
--- OUTSIDE RECORDS SUMMARY | 2025-05-20 12:04 | XMS_ITS | Patient Health Record ---
Author Organization [facility] Address [address] [place] [address] Care Team Providers Care Pipeline Integrity Engineer Name Role Phone Alfredo JEAN, Jaxon Primary Care Provider Abdulaziz Laura Unavailable [phone] Allergies Allergen (clinical drug ingredient) Drug/Non Drug Allergy documented on EMR Reaction Allergy Type Onset Date Status tamsulosin Flomax itchy rash Drug Allergy Activ e Results Component Value Reference Range Notes Glucose, Whole Blood Reviewed date:11/29/2024 04:19:39 PM Interpretation: Performing Lab:[facility], [address] [place] [phone] Notes/Report: Glucose, Whole Blood 147 60-115 mg/dL METER # : [id number] Glucose, Whole Blood Reviewed date:03/03/2025 07:30:18 PM Interpretation: Performing Lab:[facility], [address] [place] [phone] Notes/Report: Glucose, Whole Blood 122 60-115 mg/dL METER # : [id number] Reason For Referral No Information Medications Medication [...] Interpretation Negative Section Notes: Nonsmoker; no alcohol [place]--[place]; no alcohol [place]; no alcohol [place]; no alcohol [place] Problems Problem Type SNOMED Code ICD Code Onset Dates Problem Status W/U Status Risk Notes Problem 801052101 Encounter for screening for malignant neoplasm of colon (Z12.11) Active confirmed Problem 844441186 History of adenomatous polyp of colon (Z86.010) Active confirmed Problem 786239107 Abdominal bloati ng (R14.0) Active confirmed Problem 26051586 Gastritis, unspecified, without bleeding (K29.70) Active confirmed Problem 42455781 Calculus of gallbladder without cholecystitis without obstruction (K80.20) Active confirmed Problem 244229684 Gastroesophageal reflux disease, esophagitis presence not specified (K21.9) Active confirmed Problem Erosive esophagitis (03095290) Erosive esophagitis (K22.10) Active confirmed Problem 579083063 Abdominal pain, generalized (R10.84) Active confirmed Problem 564237647 Irritable bowel syndrome with constipation (K58.1) Active confirmed Problem 0985904 Chronic gastriti s without bleeding, unspecified gastritis type (K29.50) Active confirmed Problem 080369284 Adenomatous poly p of colon, unspecified part of colon (D12.6) Active confirmed Problem 55291172 Abdominal discomfort (R10.9) Active confirmed Vital Signs Temperature 96.9 degrees Fahrenheit 08/14/2024 Blood pressure diastolic 00 mm Hg 08/14/2024 Height 66 in 08/14/2024 Blood pressure systolic 000 mm Hg 08/14/2024 Weight 193 lb 4 oz lbs 08/14/2024 BMI 31.19 kg/m2 08/14/2024 Encounters Encounter Location Date Provider Diagnosis [facility] Outpatient [address] [place] [id number] 11/29/2024 Abdulaziz Flores Colon cancer screeni ng Z12.11 ; Diverticulosis of large intestine without perforation or abscess without bleeding K57.30 ; Other hemorrhoids K64.8 ; Gastro-esophageal reflux disease without esophagitis K21.9 and Hiatal hernia K44.9 [facility] Outpatient [address] [place] [address] [id number] 03/03/2025 Abdulaziz Flores Colon cancer screeni ng Z12.11 ; Personal history of adenomatous and serrated colon polyps Z86.0101 ; Diverticulosis of large intestine without perforation or abscess without bleeding K57.30 and Other hemorrhoids K64.8 [facility] [address] [place] [phone] 08/14/2024 Abdulaziz Flores Gastroesophageal ref lux disease, esophagitis presence not specified K21.9 ; History of adenomatous polyp of colon Z86.010 ; Encounter for screening for malignant neoplasm of colon Z12.11 ; Calculus of gallbladder without cholecystitis without obstruction K80.20 and Erosive esophagitis K22.10 [facility] [address] [place] [phone] 08/12/2024 Abdulaziz Flores [facility] [address] [place] [phone] 08/13/2024 Abdulaziz Flores [facility] [address] [place] [phone] 12/01/2024 Abdualziz Flores Assessments Encounter Date Diagnosis (ICD Code) Assessment Notes Treatment Notes Treatment Clinical Notes Section Notes 11/29/2024 Colon cancer screening (ICD-10 - Z12.11) 11/29/2024 Diverticulosis of large intestine without perforation or abscess without bleeding (ICD-10 - K57.30) 03/03/2025 Colon cancer screening (ICD-10 - Z12.11) 03/03/2025 Personal history of adenomatous and serrated colon polyps (ICD-10 - Z86.0101) 08/14/2024 History of adenomatous polyp of colon [...] progress. 11/29/2024 Other hemorrhoids (ICD-10 - K64.8) 03/03/2025 Diverticulosis of large intestine without perforation or abscess without bleeding (ICD-10 - K57.30) 08/14/2024 Encounter for screening for malignant neoplasm of colon (ICD-10 - Z12.11) Do not take the Metformin the night before or on the morning of the procedures Need to obtain clearance from your Director Medical Surgical before the procedures Overall, Jace appears well. [...] reflux disease without esophagitis (ICD-10 - K21.9) 03/03/2025 Other hemorrhoids (ICD-10 - K64.8) 08/14/2024 Calculus of gallbladder without cholecystitis without [...] 05/07/2019 UPPER GI ENDOSCOPY 08/14/2024 COLONOSCOPY 08/14/2024 Insurance Providers Payer Name Payer Address Payer Phone Subscriber Number Group Number Insured Name Patient Relationship to Insured Coverage Start Date Coverage End Date MEDICARE OF [place] [address] [place] [id number] JACE SOTO Self - patient is the insured Medical (General) History Medical History History ICD Code Denies [place],CVA,Lung disease,renal disease NIDDM Hypertension Kidney stones--s/p cystos, ESWL, and ravi nts Colonoscopy in 12/[address] Monahan--s mall tubular adenomas removed [id number] Dr. Chandler and the plan is for [...] for ki dney stones SVT Aortic stenosis--sees [facility] Cardiology COVID 2020--with hospitalization and com plicated course EGD 2020--UGI bleed during h is COVID infection and hospitalization--had an EGD with the finding of erosive esophagitis and duodenal ulcer DVT with PE during his COVID infection a nd hospitalization in 2020 Surgical History Surgery Date(Month/Year)
== END 2025-05-20 11:03 | disposition home or self-care (01) ==
LOC: HO.HVS 10:17
PROVIDERS: PCP Internal Medicine; Visit Provider Surgery Vascular Surgery
DX: I83.11 Varicose veins of right lower extremity with inflammation (principal)
CPT/HCPCS: 99204

== ENCOUNTER → 2025-05-20 10:16 | Outpatient (BNVA) | payer MEDICARE, SELFPAY | PROVIDERS: PCP Internal Medicine; Visit Provider Surgery Vascular Surgery | DX: I83.11 Varicose veins of right lower extremity with inflammation (principal) | CPT/HCPCS: 99202 ==

== ENCOUNTER 2025-05-23 14:30 | Outpatient (REF) | payer MEDICARE, SELFPAY ==
--- NOTE | ~2025-05-23 | XR_ITS ---
EXAMINATION: XR CERVICAL SPINE CLINICAL INFORMATION: M54.2 - Cervicalgia COMPARISON: None available. TECHNIQUE: 6 views of the cervical spine, inclusive of flexion and extension views, were obtained. FINDINGS: The vertebral alignment is normal. No intrinsic bony abnormality. The disc heights and neural foramina are well maintained. The endplates and posterior elements are normal. No fracture or subluxation. The surrounding prevertebral soft tissues are unremarkable. XR/XR cervical spine w flex/ext IMPRESSION: Unremarkable examination. Electronically signed by: Lamberto Galdamez MD 05/23/2025 03:57 PM EDT
--- NOTE | ~2025-05-23 | XR_ITS ---
EXAMINATION: XR THORACIC SPINE 3 VIEWS HISTORY: M54.6 - Pain in thoracic spine COMPARISON: There are no prior studies available for comparison. FINDINGS: AP and lateral views of the thoracic spine are submitted. Osseous mineralization is normal. The vertebral bodies maintain normal height and alignment without evidence of fracture or subluxation. There is moderate degenerative disc disease with osteophyte formation and mild disc space narrowing. And IVC filter is seen in place. XR/XR thoracic spine 3V IMPRESSION: Moderate degenerative disc disease. Electronically signed by: Abdulaziz Alfaro MD 05/23/2025 03:57 PM EDT
== END 2025-05-23 14:31 | disposition home or self-care (01) ==
LOC: HO.XRAY 14:30
PROVIDERS: PCP Internal Medicine; Referring Provider Internal Medicine; Visit Provider Registered Nurse Emergency
DX: G89.29 Other chronic pain (principal); M54.2 Cervicalgia; M54.6 Pain in thoracic spine; M79.18 Myalgia, other site; E11.40 Type 2 diabetes mellitus with diabetic neuropathy, unspecified; B35.1 Tinea unguium; E78.00 Pure hypercholesterolemia, unspecified; Z79.899 Other long term (current) drug therapy
CPT/HCPCS: 72052; 72072; 99202

== ENCOUNTER 2025-05-23 14:30 | Outpatient (AMB) | payer MEDICARE, SELFPAY ==
--- OUTSIDE RECORDS SUMMARY | 2024-08-20 05:30 | XMS_ITS ---
Author Organization [facility] Address [address] [place] [phone] Care Team Providers Care Hazard Mitigation Officer Name Role Phone Alfredo JEAN, Jaxon Primary Care Provider Abdulaziz Laura [phone] REASON FOR VISIT Patient presents today for abd pain, screening colon Encounters Encounter Location Date Provider Diagnosis [facility] [address] [facility] [address] [place] [phone] 08/20/2024 Abdulaziz Flores Plan Of Treatment No Information Progress Notes * JACE SOTODOB: [birth year] (75 yo M)Acc No.[id number]:08/20/2024 Progress Notes Patient: JACE RODRÍGUEZ Provider: Carlin Flores MD :1950 A ge:74 Y S ex:Male Date:08/20/2024 Address:[address] [place], [place] [id number] Pcp:Jaxon Fuentes MD Subjective: * Chief Complaints: [...] 10/21/2023 Generated for Printi ng/Faxing/eTransmitting on: 0 05/23/2025 05:19 PM EDT
--- OUTSIDE RECORDS SUMMARY | 2024-11-29 06:50 | XMS_ITS ---
Author Organization [facility] Address [address] [place] [address] Care Team Providers Care Evaluation Specialist Name Role Phone Jaxon Fuentse MD Primary Care Provider Abdulaziz Laura Unavailable [phone] REASON FOR VISIT gerd,erosive esophagitis,screening. hx polyps Encounters Encounter Location Date Provider Diagnosis [facility] [place] [address] [place], [place] [phone] 11/29/2024 Abdulaziz Flores Colon cancer scree marely [...] * JACE SOTODOB: [birth year] (75 yo M)Acc No.[id number]:11/29/2024 EGD and COL/MAC Patient: Dee CENTENO ABDZULEMA Provider: Carlin Flores MD :1950 A ge:74 Y S ex:Male Date:11/29/2024 Address:[address] [place] [address] [address] [facility] Pcp:Jaxon Fuentes MD Subjective: * Chief Complaints: [...] DOCD, 0528F RCMND FLW-UP 10 YRS DOCD, [address] UPPR GI ENDOSCOPY, DIAGNOSIS * * The named appointment provid er may or may not be the originator of this progress note, and it is not deemed complete until electronically signed by the appointment provider. Sign off status: Pending * Provider: Carlin Flores MD Date: 0 11/29/2024 Generated for Doris reynaga/Jaylyn/Adrianaitting on: 0 05/23/2025 05:18 PM EDT
--- OUTSIDE RECORDS SUMMARY | 2025-03-03 08:50 | XMS_ITS ---
Author Organization [facility] Address [address] [place] [address] Care Team Providers Care Deboner Name Role Phone Jaxon Fuentes MD Primary Care Provider Abdulaziz Laura Unavailable [phone] REASON FOR VISIT screening,hx polyps Encounters Encounter Location Date Provider Diagnosis [facility] [address] [place], [place] [phone] 03/03/2025 Abdulaziz Flores Colon cancer scree marely [...] * BRITTANY JACEDOB: [birth year] (75 yo M)Acc No.[id number]:03/03/2025 COLON WITH MAC Patient: JACE RODRÍGUEZ Provider: Carlin Flores MD :1950 A ge:75 Y S ex:Male Date:03/03/2025 Address:[address] [place] [address] [address] , [place], [place] Pcp:Jaxon Fuentes MD Subjective: * Chief Complaints: [...] 0 03/03/2025 Generated for Doris reynaga/Jaylyn/Adrianaitting on: 0 05/23/2025 05:19 PM EDT
[2025-05-23 14:33] VITALS: PULSE 83; RESP 16; O2SAT 97; BMI 31.5
--- NOTE | 2025-05-23 14:33 | MHC.OFFVIS ---
Vital Signs 05/23/25 14:33 Height 5 ft 6 in Weight 195 lb BMI 31.5 Blood Pressure Location Lt brachial Position Sitting Respiration 16 Pulse 83 Pulse Source Pulse Oximeter Pulse Oximetry (%) 97 Oxygen Delivery Method Room Air Intake Visit Reasons: Lumbar Radiculopathy Tube Splicer Required: No Tube Splicer Services: Tube Splicer Offered & Declined Accompanied by: Self / Same As Patient Allergies No Known Allergies Allergy (Verified 05/23/25 14:47) HPI Comments Details: The patient is a 75-year-old male presenting with chronic back pain. He reports severe pain throughout his body, particularly in his back and feet, with sensations of tingling, cold, and heat in his feet secondary to diabetic neuropathy. The patient has a history of diabetes and diabetic neuropathy, although he states his blood sugar levels are not excessively high. Five years ago, the patient was hospitalized for nearly two and a half months due to COVID-19, which resulted in significant immobility and required rehabilitation. Since then, he has experienced worsening pain in his back and feet. Endorses pain in neck and across upper back without radiation down either arm. Denies numbness, tingling or weakness of either arm. Reports tenderness to palpation. The patient also has hypercholesterolemia, managed with atorvastatin, and reports that his current pain management regimen, including gabapentin and a muscle relaxer, is ineffective. He has a fungal infection in his toes, and acknowledges the need for a high school hvac r instructor referral. - Onset: Chronic pain with a history of several years - Quality: Severe, sometimes tingling, with sensations of cold or heat - Location: Primarily in the back and legs - Radiation: Pain radiates down the legs - Exacerbating factors: Physical activity - Relieving factors: None reported - Interference: Affects mobility and daily activities - Affect: Pain impacts mood and psychological well-being - Analgesia: Currently using gabapentin and a muscle relaxer, but reports inadequate pain relief - Adverse Effects: None reported - Activities of Daily Living: Pain significantly affects mobility and daily activities - Aberrant Drug Related Behaviors: None reported [facility] Medical History Aortic stenosis Pulmonary emboli DVT (deep venous thrombosis) COVID-19 Diabetes type 2, controlled Chronic GERD Nephrolithiasis BPH loc w urin obs/LUTS Irritable bowel syndrome Surgical History S/P cardiac cath History of colonoscopy History of hand surgery History of kidney stones Family History Father Medical history unknown Mother Medical history unknown Social History Household Members: None Housing: Apartment Housing Other:: I rent a room Are you a primary tree care foreman to a significant other at home: No Do you presently have visiting nurse or other home services: No Alcohol intake: never Comment: sitter in room Patient Tobacco Use Status: Never used Tobacco e-Cigarette/Vaping Use: Never Used Second Hand Smoke Exposure: No Advance Directives Date on File: 12/17/20 service: No Current occupational status: employed 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 Answers questions appropriately. Fully engaged in examination. Skin: warm, dry, intact HEENT: Normocephalic. Hearing intact. Cardiac: External chest normal in appearance. Respiratory: No cough, audible wheezing or stridor. Abdomen: without gross distension. MS: No obvious swelling or deformities. Able to stand on bilateral tiptoes and bilateral heels.? Able to transition from sit to stand unassisted. Ambulates with bilaterally normal heel strike and toe off SLR negative bilaterally Nontender over midline lumbar vertebrae and lumbar paraspinal muscles Tenderness over middle and lower trapezius bilaterally Full lumbar and cervical range of motion Neurological: Oriented to person, place, time and situation. Thought process intact. No gait abnormalities appreciated. Psychiatric: Appropriate mood and affect. Good judgment and insight. Vital Signs: Last Vital Signs Pulse 83 05/23/25 14:33 Resp 16 05/23/25 14:33 Pulse Ox 97 05/23/25 14:33 Oxygen Delivery Method Room Air 05/23/25 14:33 BMI result Body Mass Index 31.5 Assessment & Plan Assessment & Plan (1) Cervicalgia: Code(s): M54.2 - Cervicalgia Category: Medical (2) Thoracic back pain: Code(s): M54.6 - Pain in thoracic spine Category: Medical (3) Diabetes mellitus: Code(s): E11.9 - Type 2 diabetes mellitus without complications Category: Medical (4) Diabetic neuropathy: Code(s): E11.40 - Type 2 diabetes mellitus with diabetic neuropathy, unspecified Category: Medical (5) Myofascial pain syndrome: Code(s): M79.18 - Myalgia, other site Category: Medical Plan: The management plan includes obtaining x-rays of the neck and back to evaluate for structural issues contributing to the chronic pain. Physical therapy is recommended to enhance mobility and alleviate pain symptoms. The patient will continue with gabapentin and muscle relaxers as prescribed. A high school hvac r instructor referral is made to address the fungal infection in the toes and related foot concerns. Patient was informed and verbally consented to the use of an ambient scribe for clinic note documentation during this visit. Plan - Schedule and complete x-rays of your neck and back as soon as possible. - Attend physical therapy sessions to help with mobility and pain management. - Continue taking gabapentin and muscle relaxers as prescribed. - Follow up with a high school hvac r instructor for your foot condition. Orders: Orders XR thoracic spine 3V 05/23/25 M54.6 - Pain in thoracic spine XR cervical spine w flex/ext 05/23/25 M54.2 - Cervicalgia Referrals Podiatry Referral B35.1 - Tinea unguium, E11.40 - Type 2 diabetes mellitus with diabetic neuropathy, unspecified, E11.9 - Type 2 diabetes mellitus without complications Coding Level of Care Code New Pt Level 4 (86150) Complex EM visit Add On G2211 Diagnoses Cervicalgia M54.2 Thoracic back pain M54.6 Diabetes mellitus E11.9 Diabetic neuropathy E11.40 Myofascial pain syndrome M79.18
--- OUTSIDE RECORDS SUMMARY | 2025-05-23 17:19 | XMS_ITS | Patient Health Record ---
Author Organization [facility] Address [address] [place] [address] Care Team Providers Care Data Miner Name Role Phone Alfredo JEAN, Jaxon Primary Care Provider Abdulaziz Laura Unavailable [phone] Allergies Allergen (clinical drug ingredient) Drug/Non Drug Allergy documented on EMR Reaction Allergy Type Onset Date Status tamsulosin Flomax itchy rash Drug Allergy Activ e Results Component Value Reference Range Notes Glucose, Whole Blood Reviewed date:11/29/2024 04:19:39 PM Interpretation: Performing Lab:[facility], [address] [place] [phone] Notes/Report: Glucose, Whole Blood 147 60-115 mg/dL METER # : [id number] Glucose, Whole Blood Reviewed date:03/03/2025 07:30:18 PM Interpretation: Performing Lab:[facility], [address] [place] [phone] Notes/Report: Glucose, Whole Blood 122 60-115 mg/dL METER # : [id number] Reason For Referral No Information Medications Medication [...] Interpretation Negative Section Notes: Nonsmoker; no alcohol [place]; no alcohol [place]; no alcohol [place]; no alcohol [place] Problems Problem Type SNOMED Code ICD Code Onset Dates Problem Status W/U Status Risk Notes Problem 279817177 Encounter for screening for malignant neoplasm of colon (Z12.11) Active confirmed Problem 988476604 History of adenomatous polyp of colon (Z86.010) Active confirmed Problem 972282111 Abdominal bloati ng (R14.0) Active confirmed Problem 19709587 Gastritis, unspecified, without bleeding (K29.70) Active confirmed Problem 78184904 Calculus of gallbladder without cholecystitis without obstruction (K80.20) Active confirmed Problem 266278205 Gastroesophageal reflux disease, esophagitis presence not specified (K21.9) Active confirmed Problem Erosive esophagitis (99624337) Erosive esophagitis (K22.10) Active confirmed Problem 527622646 Abdominal pain, generalized (R10.84) Active confirmed Problem 084492783 Irritable bowel syndrome with constipation (K58.1) Active confirmed Problem 6673855 Chronic gastriti s without bleeding, unspecified gastritis type (K29.50) Active confirmed Problem 299177096 Adenomatous poly p of colon, unspecified part of colon (D12.6) Active confirmed Problem 64607462 Abdominal discomfort (R10.9) Active confirmed Vital Signs Temperature 96.9 degrees Fahrenheit 08/14/2024 Blood pressure diastolic 00 mm Hg 08/14/2024 Height 66 in 08/14/2024 Blood pressure systolic 000 mm Hg 08/14/2024 Weight 193 lb 4 oz lbs 08/14/2024 BMI 31.19 kg/m2 08/14/2024 Encounters Encounter Location Date Provider Diagnosis [facility] [place] Outpatient [address] [place] [id number] 11/29/2024 Abdulaziz Flores Colon cancer screeni ng Z12.11 ; Diverticulosis of large intestine without perforation or abscess without bleeding K57.30 ; Other hemorrhoids K64.8 ; Gastro-esophageal reflux disease without esophagitis K21.9 and Hiatal hernia K44.9 [facility] [place] Outpatient [address] [place] [id number] 03/03/2025 Abdulaziz Flores Colon cancer screeni ng Z12.11 ; Personal history of adenomatous and serrated colon polyps Z86.0101 ; Diverticulosis of large intestine without perforation or abscess without bleeding K57.30 and Other hemorrhoids K64.8 [facility] [address] [place] [phone] 08/14/2024 Abdulaziz Flores Gastroesophageal ref lux disease, esophagitis presence not specified K21.9 ; History of adenomatous polyp of colon Z86.010 ; Encounter for screening for malignant neoplasm of colon Z12.11 ; Calculus of gallbladder without cholecystitis without obstruction K80.20 and Erosive esophagitis K22.10 [facility] [address] [place] [phone] 08/12/2024 Abdulaziz Flores [facility] [address] [place] [phone] 08/13/2024 Abdulaziz Flores [facility] [address] [place] [phone] 12/01/2024 Abdulaziz Flores Assessments Encounter Date Diagnosis [...] procedures Need to obtain clearance from your Title One Reading Teacher before the procedures Overall, Jace appears well. [...] Coverage End Date MEDICARE OF [place] [address] [place] [id number] JACE SOTO Self - patient is the insured Medical (General) History Medical History History ICD Code Denies [place],CVA,Lung disease,renal disease NIDDM Hypertension Kidney stones--s/p cystos, ESWL, and ravi nts Colonoscopy in 12/[address] Monahan--s mall tubular adenomas removed [id number] Dr. Chandler and the plan is for [...] for ki dney stones SVT Aortic stenosis--sees [facility] [place] [place] Cardiology COVID 2020--with hospitalization and com plicated course EGD 2020--UGI bleed during h is COVID infection and hospitalization--had an EGD with the finding of erosive esophagitis and duodenal ulcer DVT with PE during his COVID infection a nd hospitalization in 2020 Surgical History Surgery Date(Month/Year)
--- OUTSIDE RECORDS SUMMARY | 2025-05-23 17:19 | XMS_ITS | Patient Health Record ---
Author Organization [facility] Janine edward Kimball Address [address] [address] Care Team Providers Care Model Artists' Name Role Phone Alfredo JEAN, Jaxon Primary Care Provider UnavailFrantz Carlos Unavailable [phone] Reason For Referral No Information Medications Medication [...] W/U Status Risk Notes Problem Tinea unguium (623472243) Tinea unguium (B35.1) Active confirmed Problem Type II diabetes mellitus without complication (332953834) Type 2 diabetes mellitus without complication (E11.9) Active confirmed Plan Of Treatment Pending Test Test Name Order Date [id number] NAIL, 6 OR MORE 06/19/2020 Insurance Providers Payer Name Payer Address Payer Phone Subscriber Number Group Number Insured Name Patient Relationship to Insured Coverage Start Date Coverage End Date Medicare National Govt Svcs Inc [address] [place] [phone] [id number] Mariposa Davis Self - patient is the insured Medical (General) History Medical History History ICD Code Anxiety Arthritis Back,Hip,and Knee pain Depression type II diabetes Diverticulosis Gall bladder problems Gout Headaches/Migraines Kidney disease Reflux ( GERD) skin ulcer Vascular phlebitis (clots) Surgical History Surgery Date(Month/Year) Hospitalization History Reason Date(Month/Year) [facility]- chest pain 2018
== END 2025-05-23 15:14 | disposition home or self-care (01) ==
PROVIDERS: PCP Internal Medicine; Referring Provider Internal Medicine; Visit Provider Registered Nurse Emergency
DX: M54.2 Cervicalgia (principal); M54.6 Pain in thoracic spine; E11.40 Type 2 diabetes mellitus with diabetic neuropathy, unspecified; M79.18 Myalgia, other site
CPT/HCPCS: 99204; G2211

== ENCOUNTER → 2025-05-23 15:26 | Outpatient (BNV) | payer MEDICARE, SELFPAY | PROVIDERS: PCP Internal Medicine; Referring Provider Internal Medicine; Visit Provider Radiology Diagnostic Radiology | DX: M51.34 Other intervertebral disc degeneration, thoracic region (principal) | CPT/HCPCS: 72072 ==

== ENCOUNTER 2025-06-11 10:25 | Outpatient (REF) | payer MEDICARE, SELFPAY | END 2025-06-11 10:26 | disposition home or self-care (01) | LOC: HO.LNP 10:25 | PROVIDERS: PCP Internal Medicine; Visit Provider Student in an Organized Health Care Education/Training Program | DX: B35.1 Tinea unguium (principal); E11.40 Type 2 diabetes mellitus with diabetic neuropathy, unspecified | CPT/HCPCS: 11721; 87101; 87220; 88304; 88312; 99202 ==

== ENCOUNTER 2025-06-11 10:25 | Outpatient (AMB) | payer MEDICARE, SELFPAY ==
--- OUTSIDE RECORDS SUMMARY | 2024-08-20 05:30 | XMS_ITS ---
Author Organization [facility] Address [address] [place] [phone] Care Team Providers Care Jailkeeper Name Role Phone Alfredo JEAN, Jaxon Primary Care Provider Abdulaziz Laura [phone] REASON FOR VISIT Patient presents today for abd pain, screening colon Encounters Encounter Location Date Provider Diagnosis [facility] 10 [facility] [address] [place] [phone] 08/20/2024 Abdulaziz Flores Plan Of Treatment No Information Progress Notes * JACE SOTODOB: [birth year] (75 yo M)Acc No.[id number]:08/20/2024 Progress Notes Patient: JACE RODRÍGUEZ Provider: Carlin Flores MD :1950 A ge:74 Y S ex:Male Date:08/20/2024 Address:[address] [place], [place] [phone] Pcp:Jaxon Fuentes MD Subjective: * Chief Complaints: [...] 1 10/21/2023 Generated for Reubeni ng/Fajohng/eTransmitting on: 11:51 AM EDT
--- OUTSIDE RECORDS SUMMARY | 2024-11-29 06:50 | XMS_ITS ---
Author Organization [facility] Address [address] [place] [address] Care Team Providers Care Electrical And Instrument Engineer Name Role Phone Jaxon Fuentes MD Primary Care Provider Abdulaziz Laura Unavailable [phone] REASON FOR VISIT gerd,erosive esophagitis,screening. hx polyps Encounters Encounter Location Date Provider Diagnosis [facility] [place] [address] [place], [place] [phone] 11/29/2024 Abdulaziz Flores Colon cancer scree marely [...] * JACE SOTODOB: [birth year] (75 yo M)Acc No.[id number]:11/29/2024 EGD and COL/MAC Patient: Dee CENTENO ABDZULEMA Provider: Carlin Flores MD :1950 A ge:74 Y S ex:Male Date:11/29/2024 Address:[address] [place] [address] [address] [facility] Pcp:Jaxon Fuentes MD Subjective: * Chief Complaints: [...] DOCD, 0528F RCMND FLW-UP 10 YRS DOCD, [address] UPPR GI ENDOSCOPY, DIAGNOSIS * * The named appointment provid er may or may not be the originator of this progress note, and it is not deemed complete until electronically signed by the appointment provider. Sign off status: Pending * Provider: Carlin Flores MD Date: 0 11/29/2024 Generated for Doris reynaga/Jaylyn/Adrianaitting on: 1 11:50 AM EDT
--- OUTSIDE RECORDS SUMMARY | 2025-03-03 08:50 | XMS_ITS ---
Author Organization [facility] Address [address] [place] [address] Care Team Providers Care Biomass Boiler Operator Name Role Phone Jaxon Fuentes MD Primary Care Provider Alonsoa Abdulaziz Vega Unavailable [phone] REASON FOR VISIT screening,hx polyps Encounters Encounter Location Date Provider Diagnosis [facility] [address] [place], [place] [phone] 03/03/2025 Abdulaziz Flores Colon cancer scree marely [...] * BRITTANY JACEDOB: [birth year] (75 yo M)Acc No.[id number]:03/03/2025 COLON WITH MAC Patient: JACE RODRÍGUEZ Provider: Carlin Flores MD :1950 A ge:75 Y S ex:Male Date:03/03/2025 Address:[address] [place] [address] [address] , [place], [place] Pcp:Jaxon Fuentes MD Subjective: * Chief Complaints: [...] 03/03/2025 Generated for Doris reynaga/Jaylyn/eTransmitting on: 1 11:50 AM EDT
[2025-06-11 10:41] VITALS: BMI 30.7
--- NOTE | 2025-06-11 10:41 | A.OFFVIS_ITS ---
Vital Signs 06/11/25 10:41 Height 5 ft 6 in Weight 190 lb BMI 30.7 Intake Visit Reasons: Type 2 diabetes mellitus w/diabetic neuropathy, Intake Note: cachorro is a 75 year old male who presents today as a new patient for a diabetic foot exam. He states his sugars are currently at 118 and his last reported A1C is 7.7 on 04/02/25. Patient states he experiences a numbness, tingling, and burning sensation on the feet. He reports occasional dizziness and headache but denies nausea and vomiting and no history of injury to his feet has occurred. Patient states he has back pain with out injury and he is taking gabapentin. Allergies No Known Allergies Allergy (Verified 06/11/25 10:46) HPI HPI Type 2 diabetes mellitus w/diabetic neuropathy,: Details: 75-year-old male past medical history of diabetes mellitus type 2, lumbar radiculopathy, DVT/PE, CAD/aortic stenosis, HTN, HLD, seen today for initial diabetic foot evaluation and toenail pain. Patient states he experiences numbness, tingling, and burning sensation on his feet. He is taking gabapentin. He also notes having fungal toenails for the past 10-15 years. He has tried topical treatment in the past, and says he bought oral medication online which did not help. He used to see a [facility] in [place] but has not seen them for the past few years. [facility] Medical History Aortic stenosis Pulmonary emboli DVT (deep venous thrombosis) COVID-19 Diabetes type 2, controlled Chronic GERD Nephrolithiasis BPH loc w urin obs/LUTS Irritable bowel syndrome Surgical History S/P cardiac cath History of colonoscopy History of hand surgery History of kidney stones Family History Father Medical history unknown Mother Medical history unknown Social History Household Members: None Housing: Apartment Housing Other:: I rent a room Are you a primary summer child caregiver to a significant other at home: No Do you presently have visiting nurse or other home services: No Alcohol intake: never Comment: sitter in room Patient Tobacco Use Status: Never used Tobacco e-Cigarette/Vaping Use: Never Used Second Hand Smoke Exposure: No Advance Directives Date on File: 12/17/20 service: No Current occupational status: employed 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 Interdigital spaces: Clear, no maceration or fungal infection. Nails: Thickened elongated dystrophic fungal toenails x 10. Neuro: Protective sensation grossly diminished to bilateral lower extremities. Msk: Deformities: No evidence of hammertoes, bunions, Charcot changes, or other structural abnormalities. Muscle strength: 5/5 in all muscle groups. Gait: Normal, no antalgic or steppage gait observed. Footwear Assessment: Shoes inspected; appropriate fit, no excessive wear, or foreign objects noted. Office Procedures AMB Debridement/Avulsion Podia Details: Procedure: Nail debridement Location: Bilateral feet x 10 nails Anesthesia: N/A Description: The affected toenails were cleansed with an antiseptic solution. Using sterile nail nippers and a rotary derek, dystrophic and mycotic nail materi al was carefully debrided and reduced in thickness. Care was taken to avoid trauma to the surrounding skin and nail bed. All debris was removed as tolerated. The area was inspected for signs of infection or ulceration. Patient tolerated the procedure well without complications. Tolerance: Patient tolerated procedure well, no immediate complications. Class B findings as per physical exam findings above. The patient has a diagnosis of diabetes mellitus and presents with elongated, thickened toenails. Due to underlying diabetic neuropathy and mild vascular disease findings, the patient is at increased risk for complications such as ulceration, infection, and difficulty with self-care. Debridement of elongated toenails is medically necessary to prevent development of pressure-related lesions, reduce risk of secondary infection, and maintain foot health in high- risk comorbidities. 38122-Izbehmhpzzf of Nail 6+ Procedure code (CPT) selection complete Results Reviewed Results Reviewed: Laboratory Tests 04/02/25 17:26 Hgb A1c (Clinic) 7.7 H Assessment & Plan Assessment & Plan (1) Diabetes mellitus: Code(s): E11.9 - Type 2 diabetes mellitus without complications Category: Medical Plan: Risk Stratification: No current ulceration, infection, or pre-ulcerative lesion. No loss of protective sensation or peripheral arterial disease. No plans for further testing/referrals for non-invasive vascular studies. Patient is at low risk for diabetic foot complications at this time. Recommendations: Continue routine foot care and daily self-inspection. Recommend moisturizing daily. Recommend supportive proper fitting shoe-wear. The patient may require diabetic shoes in the future. Reinforced diabetic foot education and risks from peripheral neuropathy. (2) Onychomycosis: Code(s): B35.1 - Tinea unguium Category: Medical Plan: * Debrided nails x10 using a nail nipper. * Nail biopsy performed of right hallux nail. * Discussed treatment options including topical treatment versus oral antifungal medications. * Explained that oral antifungals such as terbinafine (Lamisil) may cause gastrointestinal upset, headache, rash, taste disturbances, and hepatotoxicity. Baseline and monthly liver function monitoring is recommended during therapy. Patients should be advised to report symptoms such as jaundice, dark urine, or persistent nausea. * Patient was counseled on the importance of anti-fungal foot hygiene, including daily washing and thorough drying of feet, regular changing of socks, and use of breathable footwear. Recommended antifungal sprays shoes. Education provided on keeping toenails trimmed and clean to reduce risk of fungal infections. Preventive strategies discussed to minimize recurrence of fungal infections. * Will follow up with the patient in 2-3 weeks to discuss results and prescribe medications. * Follow up in 9 weeks for routine nail care Orders: Orders AMB Debridement/Avulsion Podiatry Today B35.1 - Tinea unguium Fungus Cult Hair/Skin/Nail Today B35.1 - Tinea unguium Surgical Today B35.1 - Tinea unguium Coding Level of Care Code New Pt Level 4 (35553) Diagnoses Diabetes mellitus E11.9 Onychomycosis B35.1 CPT Codes Skin Debridement - CPT: 91059-Oofkvlfhhnw of Nail 6+ ([id number]) Time Spent (min) 45
--- OUTSIDE RECORDS SUMMARY | 2025-06-11 11:50 | XMS_ITS | Patient Health Record ---
Author Organization [facility] Janine edward Tray Address [address] [place] [address] Care Team Providers Care Electroplater Automatic Name Role Phone Alfredo JEAN, Jaxon Primary Care Provider Unavaila Frantz Trejo Unavailable [phone] Reason For Referral No Information Medications Medication [...] W/U Status Risk Notes Problem Tinea unguium (207862397) Tinea unguium (B35.1) Active confirmed Problem Type II diabetes mellitus without complication (298608444) Type 2 diabetes mellitus without complication (E11.9) Active confirmed Plan Of Treatment Pending Test Test Name Order Date [id number] NAIL, 6 OR MORE 06/19/2020 Insurance Providers Payer Name Payer Address Payer Phone Subscriber Number Group Number Insured Name Patient Relationship to Insured Coverage Start Date Coverage End Date Medicare National Govt Svcs Inc [address] [place] [phone] [id number] Mariposa Davis Self - patient is the insured Medical (General) History Medical History History ICD Code Anxiety Arthritis Back,Hip,and Knee pain Depression type II diabetes Diverticulosis Gall bladder problems Gout Headaches/Migraines Kidney disease Reflux ( GERD) skin ulcer Vascular phlebitis (clots) Surgical History Surgery Date(Month/Year) Hospitalization History Reason Date(Month/Year) [facility]- chest pain 2018
--- OUTSIDE RECORDS SUMMARY | 2025-06-11 11:51 | XMS_ITS | Patient Health Record ---
Author Organization [facility] Address [address] [place] [address] Care Team Providers Care Home Care Associate Name Role Phone Alfredo JEAN, Jaxon Primary Care Provider Abdulaziz Laura Unavailable [phone] Allergies Allergen (clinical drug ingredient) Drug/Non Drug Allergy documented on EMR Reaction Allergy Type Onset Date Status tamsulosin Flomax itchy rash Drug Allergy Activ e Results Component Value Reference Range Notes Glucose, Whole Blood Reviewed date:11/29/2024 04:19:39 PM Interpretation: Performing Lab:[facility], [address] [place] [phone] Notes/Report: Glucose, Whole Blood 147 60-115 mg/dL METER # : [id number] Glucose, Whole Blood Reviewed date:03/03/2025 07:30:18 PM Interpretation: Performing Lab:[facility], [address] [place] [phone] Notes/Report: Glucose, Whole Blood 122 60-115 mg/dL METER # : [id number] Reason For Referral No Information Medications Medication [...] Interpretation Negative Section Notes: Nonsmoker; no alcohol Ghanaian[place]; no alcohol Ghana[place]; no alcohol [place]; no alcohol [place] Problems Problem Type SNOMED Code ICD Code Onset Dates Problem Status W/U Status Risk Notes Problem [id number] Encounter for screening for malignant neoplasm of colon (Z12.11) Active confirmed Problem 076724571 History of adenomatous polyp of colon (Z86.010) Active confirmed Problem 927428336 Abdominal bloati ng (R14.0) Active confirmed Problem 69951124 Gastritis, unspecified, without bleeding (K29.70) Active confirmed Problem 19616639 Calculus of gallbladder without cholecystitis without obstruction (K80.20) Active confirmed Problem 581928715 Gastroesophageal reflux disease, esophagitis presence not specified (K21.9) Active confirmed Problem Erosive esophagitis (41746692) Erosive esophagitis (K22.10) Active confirmed Problem 684146813 Abdominal pain, generalized (R10.84) Active confirmed Problem 786324194 Irritable bowel syndrome with constipation (K58.1) Active confirmed Problem 6533729 Chronic gastriti s without bleeding, unspecified gastritis type (K29.50) Active confirmed Problem 645602119 Adenomatous poly p of colon, unspecified part of colon (D12.6) Active confirmed Problem 25673861 Abdominal discomfort (R10.9) Active confirmed Vital Signs Temperature 96.9 degrees Fahrenheit 08/14/2024 Blood pressure diastolic 00 mm Hg 08/14/2024 Height 66 in 08/14/2024 Blood pressure systolic 000 mm Hg 08/14/2024 Weight 193 lb 4 oz lbs 08/14/2024 BMI 31.19 kg/m2 08/14/2024 Encounters Encounter Location Date Provider Diagnosis [facility] [address] [place] [id number] 11/29/2024 Abdulaziz Flores Colon cancer screeni ng Z12.11 ; Diverticulosis of large intestine without perforation or abscess without bleeding K57.30 ; Other hemorrhoids K64.8 ; Gastro-esophageal reflux disease without esophagitis K21.[address] K44.[address] [facility] [address] [place] [id number] 03/03/2025 Abdulaziz Flores Colon cancer screeni ng Z12.11 ; Personal history of adenomatous and serrated colon polyps Z86.0101 ; Diverticulosis of large intestine without perforation or abscess without bleeding K57.30 and Other hemorrhoids K64.8 [facility] [address] [place] [phone] 08/14/2024 Abdulaziz Flores Gastroesophageal ref lux disease, esophagitis presence not specified K21.9 ; History of adenomatous polyp of colon Z86.010 ; Encounter for screening for malignant neoplasm of colon Z12.11 ; Calculus of gallbladder without cholecystitis without obstruction K80.20 and Erosive esophagitis K22.10 [facility] [address] [place] [phone] 08/12/2024 Abdulaziz Flores [facility] [address] [place] [phone] 08/13/2024 Abdulaziz Flores [facility] [address] [place] [phone] 12/01/2024 Abdulaziz Flores Assessments Encounter Date Diagnosis [...] procedures Need to obtain clearance from your Excellence Leader before the procedures Overall, Jace appears well. [...] Coverage End Date MEDICARE OF [place] [address] [place] [id number] JACE SOTO Self - patient is the insured Medical (General) History Medical History History ICD Code Denies CA,CVA,Lung disease,renal disease NIDDM Hypertension Kidney stones--s/p cystos, ESWL, and ravi nts Colonoscopy in 12/[address] Monahan--s mall tubular adenomas removed [id number] Dr. Chandler and the plan is for [...] for ki dney stones SVT Aortic stenosis--sees [facility] COVID 2020--with hospitalization and com plicated course EGD 2020--UGI bleed during h is COVID infection and hospitalization--had an EGD with the finding of erosive esophagitis and duodenal ulcer DVT with PE during his COVID infection a nd hospitalization in 2020 Surgical History Surgery Date(Month/Year)
== END 2025-06-11 11:18 | disposition home or self-care (01) ==
LOC: HO.HPODS 10:26
PROVIDERS: PCP Internal Medicine; Visit Provider Student in an Organized Health Care Education/Training Program
DX: E11.9 Type 2 diabetes mellitus without complications (principal); B35.1 Tinea unguium
CPT/HCPCS: 11721; 99203

== ENCOUNTER 2025-06-27 08:37 | Outpatient (REF) | payer MEDICARE, SELFPAY ==
--- OUTSIDE RECORDS SUMMARY | 2024-08-20 05:30 | XMS_ITS ---
Author Organization [facility] Address [address] [place] [phone] Care Team Providers Care Hob Machine Operator Name Role Phone Alfredo JEAN, Jaxon Primary Care Provider Abdulaziz Laura [phone] REASON FOR VISIT Patient presents today for abd pain, screening colon Encounters Encounter Location Date Provider Diagnosis [facility] [address] [facility] [address] [place] [phone] 08/20/2024 Abdulaziz Flores Plan Of Treatment No Information Progress Notes * JACE SOTODOB: [birth year] (75 yo M)Acc No.[id number]:08/20/2024 Progress Notes Patient: JACE RODRÍGUEZ Provider: Carlin Flores MD :1950 A ge:74 Y S ex:Male Date:08/20/2024 Address:[address] [place], [place] [phone] Pcp:Jaxon Fuentes MD Subjective: * Chief Complaints: [...] 1 10/21/2023 Generated for Reubeni ng/Fajohng/eTransmitting on: 09:03 AM EDT
--- OUTSIDE RECORDS SUMMARY | 2024-11-29 06:50 | XMS_ITS ---
Author Organization [facility] Address [address] [place] [address] Care Team Providers Care Maintenance Mechanic Engine Name Role Phone Jaxon Fuentes MD Primary Care Provider Abdulaziz Laura Unavailable [phone] REASON FOR VISIT gerd,erosive esophagitis,screening. hx polyps Encounters Encounter Location Date Provider [place] [facility] [place] [address] [place], [place] [phone] 11/29/2024 Abdulaziz Flores Colon cancer scree marely [...] * JACE SOTODOB: [birth year] (75 yo M)Acc No.[id number]:11/29/2024 EGD and COL/MAC Patient: Dee CENTENO JACE Provider: Carlin Flores MD :1950 A ge:74 Y S ex:Male Date:11/29/2024 Address:[address] [place] [address] [address] [facility] Pcp:Jaxon Fuentes MD Subjective: * Chief Complaints: [...] DOCD, 0528F RCMND FLW-UP 10 YRS DOCD, [address] UPPR GI ENDOSCOPY, DIAGNOSIS * * The named appointment provid er may or may not be the originator of this progress note, and it is not deemed complete until electronically signed by the appointment provider. Sign off status: Pending * Provider: Carlin Flores MD Date: 0 11/29/2024 Generated for Doris reynaga/Jaylyn/Adrianaitting on: 1 09:03 AM EDT
--- OUTSIDE RECORDS SUMMARY | 2025-03-03 08:50 | XMS_ITS ---
Author Organization [facility] Address [address] [place] [address] Care Team Providers Care Manufacturing Engineering Intern Name Role Phone Jaxon Fuentes MD Primary Care Provider Abdulaziz Laura Unavailable [phone] REASON FOR VISIT screening,hx polyps Encounters Encounter Location Date Provider [place] [facility] [place] [address] [place], [place] [phone] 03/03/2025 Abdulaziz Flores Colon cancer scree marely [...] * BRITTANY JACEDOB: [birth year] (75 yo M)Acc No.[id number]:03/03/2025 COLON WITH MAC Patient: JACE RODRÍGUEZ Provider: Carlin Flores MD :1950 A ge:75 Y S ex:Male Date:03/03/2025 Address:[address] [place] [address] [address] , [place], [place] Pcp:Jaxon Fuentes MD Subjective: * Chief Complaints: [...] 03/03/2025 Generated for Doris reynaga/Jaylyn/eTransmitting on: 1 09:03 AM EDT
--- NOTE | ~2025-06-27 | US_ITS ---
EXAMINATION: US LOWER EXTREMITY VENOUS (REFLUX EXAM), BILATERAL CLINICAL INFORMATION: I83.11. Varices. COMPARISON: None. TECHNIQUE: Color flow triplex imaging and compression Doppler was performed to evaluate both the deep and the superficial systems bilaterally. To evaluate the superficial system, the examination was performed in the upright position. Color-flow Doppler ultrasound and compression ultrasound were utilized. In addition, maneuvers were utilized to demonstrate reflux. FINDINGS: 1. DEEP VENOUS ULTRASOUND OF THE RIGHT LOWER EXTREMITY: Common Femoral Vein: Compressible, normal respiratory variation and augmented flow. Femoral Vein: Compressible, normal color flow and augmentation. Popliteal Vein: Compressible, normal augmentation. Deep Reflux: There is no evidence of reflux in the deep system in either the common femoral vein, superficial femoral or the popliteal vein. There is no evidence of a Caban's cyst. 2. SUPERFICIAL ULTRASOUND WITH DOPPLER OF RIGHT LOWER EXTREMITY: GREAT SAPHENOUS VEIN: Saphenofemoral Junction: 0.8 cm; Reflux: 0 ms Proximal Thigh: 0.5 cm; Reflux: 0 ms Mid Thigh: 0.3 cm; Reflux: 0 ms Distal Thigh: 0.3 cm; Reflux: 0 ms At Knee: 0.3 cm; Reflux: 3312 ms Proximal Calf: 0.3 cm; Reflux: 0 ms Mid Calf: 0.2 cm; Reflux: 0 ms Distal Calf: 0.3 cm; Reflux: 0 ms DUPLICATED MEDIAL GREAT SAPHENOUS VEIN: Diameter: None imaged Reflux: NA DUPLICATED LATERAL GREAT SAPHENOUS VEIN: Diameter: None imaged Reflux: NA SMALL SAPHENOUS VEIN: Saphenopopliteal Junction: 0.2 cm; Reflux: 0 ms Proximal: 0.3 cm; Reflux: 1336 ms Distal: 0.4 cm; Reflux: 0 ms VEIN OF GIACOMINI: Size: NA Reflux: NA PERFORATORS: Location: Mid calf. Size: 0.2 cm. Reflux: 916 ms. VARICOSITIES: Location: Proximal calf. Size: 0.3 cm. Reflux: NA 3. DEEP VENOUS ULTRASOUND OF THE LEFT LOWER EXTREMITY: Common Femoral Vein: Compressible, normal respiratory variation and augmented flow. Femoral Vein: Compressible, normal color flow and augmentation. Popliteal Vein: Compressible, normal augmentation. Deep Reflux: There is 1016 ms reflux in the popliteal vein. There is no evidence of a Caban's cyst. 4. SUPERFICIAL ULTRASOUND WITH DOPPLER OF LEFT LOWER EXTREMITY: GREAT SAPHENOUS VEIN: Saphenofemoral Junction: 0.7 cm; Reflux: 0 ms Proximal Thigh: 0.5 cm; Reflux: 0 ms Mid Thigh: 0.4 cm; Reflux: 0 ms Distal Thigh: 0.3 cm; Reflux: 0 ms At Knee: 0.3 cm; Reflux: 0 ms Proximal Calf: 0.3 cm; Reflux: 0 ms Mid Calf: 0.3 cm; Reflux: 2988 ms Distal Calf: 0.4 cm; Reflux: 1824 ms DUPLICATED MEDIAL GREAT SAPHENOUS VEIN: Diameter: None imaged Reflux: NA DUPLICATED LATERAL GREAT SAPHENOUS VEIN: Diameter: 0.1-0.2 cm. Reflux: NA SMALL SAPHENOUS VEIN: Saphenopopliteal Junction: 0.3 cm; Reflux: 0 ms Proximal: 0.4 cm; Reflux: 0 ms Distal: 0.3 cm; Reflux: 0 ms VEIN OF GIACOMINI: Size: NA Reflux: NA PERFORATORS: Location: At the knee. Proximal and mid calf. Size: 0.2 cm. Reflux: NA VARICOSITIES: Location: None Imaged Size: NA Reflux: NA US/US venous insuf bilat IMPRESSION: Right: Venous insufficiency, great saphenous vein at the knee. Venous insufficiency, small saphenous vein at the mid calf. Perforators with reflux in the mid calf. Varices without reflux in the proximal calf. Left: Venous insufficiency, great saphenous vein from the mid calf to the ankle. Deep venous system reflux in the popliteal vein. Perforators without reflux. Electronically signed by: Zane Turpin MD 06/27/2025 10:50 AM EDT
--- OUTSIDE RECORDS SUMMARY | 2025-06-27 09:03 | XMS_ITS | Patient Health Record ---
Author Organization [facility] Address [address] [place] [address] Care Team Providers Care Load Test Mechanic Name Role Phone Alfredo JEAN, Jaxon Primary Care Provider Abdulaziz Laura Unavailable [phone] Allergies Allergen (clinical drug ingredient) Drug/Non Drug Allergy documented on EMR Reaction Allergy Type Onset Date Status tamsulosin Flomax itchy rash Drug Allergy Activ e Results Component Value Reference Range Notes Glucose, Whole Blood Reviewed date:11/29/2024 04:19:39 PM Interpretation: Performing Lab:[facility], [address] [place] [phone] Notes/Report: Glucose, Whole Blood 147 60-115 mg/dL METER # : [id number] Glucose, Whole Blood Reviewed date:03/03/2025 07:30:18 PM Interpretation: Performing Lab:[facility], [address] [place] [phone] Notes/Report: Glucose, Whole Blood 122 60-115 mg/dL METER # : [id number] Reason For Referral No Information Medications Medication SIG (Take, Route, Frequency, Duration) Notes Start Date End Date Status Atorvastatin Calcium 20 MG TAKE ONE TABLET BY MOUTH DAILY AT BEDTIME Oral; Duration: 90 Active Hyoscyamine Sulfate 0.125 MG use 1 Orally Q 6 hours prn abdominal bloating or discomfort; Duration: 30 days 08/13/2020 Active metFORMIN HCl 500 MG TK 1 T PO BID WAC O ral; Duration: 30 Active Finasteride 5 MG TK 1 T PO QD Oral; Duration: 30 Active Sporanox 100 MG 1 capsule after a me al Orally Once a day; Duration: 10 day(s) Active Gabapentin 100 MG TAKE ONE CAPSULE BY MOUTH TWICE A DAY Oral; Duration: 90 Active Omeprazole 40 MG 1 capsule Orally Onc e a day 06/16/2019 Active Dicyclomine HCl 10 MG 1-2 capsules Orall y QID prn abdominal bloating and cramps; Duration: 30 Not-Taking tiZANidine HCl 4 MG TAKE ONE TABLET BY MOUTH EVERY 8 HOURS NEEDED FOR MUSCLE SPASTICITY. Oral; Duration: 40 Active FreeStyle Lite Test - USE TO CHECK BLOOD SUGARS THREE TIMES DAILY In Vitro; Duration: 33 Active Immunizations Vaccine Route Administration Date [...] Interpretation Negative Section Notes: Nonsmoker; no alcohol Egyptian[place]; no alcohol Egyptian[place]; no alcohol Egyptian[place]; no alcohol Egyptian[place] Problems Problem Type SNOMED Code ICD Code Onset Dates Problem Status W/U Status Risk Notes Problem Screening for malignant neoplasm of colon (122427242) Encounter for screening for malignant neoplasm of colon (Z12.11) Active confirmed Problem History of adenomatous polyp of colon (152610683) History of adenomatous polyp of colon (Z86.010) Active confirmed Problem Abdominal bloating (920397147) Abdominal bloating (R14.0) Active confirmed Problem Gastroduodenitis (795122272) Gastritis, unspecified, without bleeding (K29.70) Active confirmed Problem Cholelithiasis without obstruction (26101738) Calculus of gallbladder without cholecystitis without obstruction (K80.20) Active confirmed Problem Gastroesophageal reflux disease (192918063) Gastroesophageal reflux disease, esophagitis presence not specified (K21.9) Active confirmed Problem Erosive esophagitis (36701878) Erosive esophagitis (K22.10) Active confirmed Problem Generalized abdominal pain (132638671) Abdominal pain, generalized (R10.84) Active confirmed Problem Irritable bowel syndrome characterized by constipation (067489319) Irritable bowel syndrome with constipation (K58.1) Active confirmed Problem Atrophic gastritis (89625029) Chronic gastritis without bleeding, unspecified gastritis type (K29.50) Active confirmed Problem Benign neoplasm of colon (50422666) Adenomatous polyp of colon, unspecified part of colon (D12.6) Active confirmed Problem Abdominal discomfort (82079511) Abdominal discomfort (R10.9) Active confirmed Vital Signs Temperature 96.9 degrees Fahrenheit 08/14/2024 Blood pressure diastolic 00 mm Hg 08/14/2024 Height 66 in 08/14/2024 Blood pressure systolic 000 mm Hg 08/14/2024 Weight 193 lb 4 oz lbs 08/14/2024 BMI 31.19 kg/m2 08/14/2024 Encounters Encounter Location Date Provider Diagnosis [facility] [address] [place] [id number] 11/29/2024 Abdulaziz Flores Colon cancer screeni ng Z12.11 ; Diverticulosis of large intestine without perforation or abscess without bleeding K57.30 ; Other hemorrhoids K64.8 ; Gastro-esophageal reflux disease without esophagitis K21.9 and Hiatal hernia K44.9 [facility] [address] [place] [id number] 03/03/2025 Abdulaziz Flores Colon cancer screeni ng Z12.11 ; Personal history of adenomatous and serrated colon polyps Z86.0101 ; Diverticulosis of large intestine without perforation or abscess without bleeding K57.30 and Other hemorrhoids K64.8 [facility] [address] [place] [phone] 08/14/2024 Abdulaziz Flores Gastroesophageal ref lux disease, esophagitis presence not specified K21.9 ; History of adenomatous polyp of colon Z86.010 ; Encounter for screening for malignant neoplasm of colon Z12.11 ; Calculus of gallbladder without cholecystitis without obstruction K80.20 and Erosive esophagitis K22.10 [facility] [address] [place] [phone] 08/12/2024 Abdulaziz Flores [facility] [address] [place] [phone] 08/13/2024 Abdulaziz Flores [facility] [address] [place] [address] [place] [address] 12/01/2024 Abdulaziz Flores Assessments Encounter Date Diagnosis [...] procedures Need to obtain clearance from your Outer Diameter Grinder before the procedures Overall, Jace appears well. [...] Date Coverage End Date MEDICARE OF [place] [address] [place] [address] [id number] JACE SOTO Self - patient is the insured Medical (General) History Medical History History ICD Code Denies [place],CVA,Lung disease,renal disease NIDDM Hypertension Kidney stones--s/p cystos, ESWL, and ravi nts Colonoscopy in 12/[address] Monahan--s mall tubular adenomas removed [id number] Dr. Chandler and the plan is for [...] for ki dney stones SVT Aortic stenosis--sees [facility] COVID 2020--with hospitalization and com plicated course EGD 2020--UGI bleed during h is COVID infection and hospitalization--had an EGD with the finding of erosive esophagitis and duodenal ulcer DVT with PE during his COVID infection a nd hospitalization in 2020 Surgical History Surgery Date(Month/Year)
--- OUTSIDE RECORDS SUMMARY | 2025-06-27 09:03 | XMS_ITS | Patient Health Record ---
Author Organization [facility] Janine edward Tray Address [address] [place] [address] Care Team Providers Care Transmitter Operator Name Role Phone Alfredo JEAN, Jaxon Primary Care Provider Unavaila Frantz Trejo Unavailable [phone] Reason For Referral No Information Medications Medication [...] W/U Status Risk Notes Problem Tinea unguium (757599020) Tinea unguium (B35.1) Active confirmed Problem Type II diabetes mellitus without complication (205988019) Type 2 diabetes mellitus without complication (E11.9) Active confirmed Plan Of Treatment Pending Test Test Name Order Date [id number] NAIL, 6 OR MORE 06/19/2020 Insurance Providers Payer Name Payer Address Payer Phone Subscriber Number Group Number Insured Name Patient Relationship to Insured Coverage Start Date Coverage End Date Medicare National Govt Svcs Inc [address] [place] [phone] [id number] Mariposa Davis Self - patient is the insured Medical (General) History Medical History History ICD Code Anxiety Arthritis Back,Hip,and Knee pain Depression type II diabetes Diverticulosis Gall bladder problems Gout Headaches/Migraines Kidney disease Reflux ( GERD) skin ulcer Vascular phlebitis (clots) Surgical History Surgery Date(Month/Year) Hospitalization History Reason Date(Month[facility]
== END 2025-06-27 08:38 | disposition home or self-care (01) ==
LOC: HO.US 08:37
PROVIDERS: PCP Internal Medicine; Visit Provider Surgery Vascular Surgery
DX: I83.11 Varicose veins of right lower extremity with inflammation (principal)
CPT/HCPCS: 93970

== ENCOUNTER → 2025-06-27 08:41 | Outpatient (BNV) | payer MEDICARE, SELFPAY | PROVIDERS: PCP Internal Medicine; Visit Provider Radiology Diagnostic Radiology | DX: I83.11 Varicose veins of right lower extremity with inflammation (principal) | CPT/HCPCS: 93970 ==

== ENCOUNTER 2025-07-24 09:55 | Outpatient (AMB) | payer MEDICARE, SELFPAY ==
--- OUTSIDE RECORDS SUMMARY | 2024-08-20 04:30 | XMS_ITS ---
Author Organization [facility] Address [address] [place] [phone] Care Team Providers Care Spring Setter Name Role Phone Alfredo JEAN, Jaxon Primary Care Provider Abdulaziz Laura [phone] REASON FOR VISIT Patient presents today for abd pain, screening colon Encounters Encounter Location Date Provider Diagnosis [facility] [address] [facility] [address] [place] [phone] 08/20/2024 Abdulaziz Flores Plan Of Treatment No Information Progress Notes * JACE SOTODOB: [birth year] (75 yo M)Acc No.[id number]:08/20/2024 Progress Notes Patient: JACE RODRÍGUEZ Provider: Carlin Flores MD :1950 A ge:74 Y S ex:Male Date:08/20/2024 Address:[address] [place], [place] [id number] Pcp:Jaxon Fuentes MD Subjective: * Chief Complaints: * 1 . Patient presents today for abd pain, screening colon. * Medical History: Objective: * Vitals: Assessment: Plan: * Treatment: * * The named appointment provid er may or may not be the originator of this progress note, and it is not deemed complete until electronically signed by the appointment provider. Sign off status: Pending * Provider: Carlin Flores MD Date: 1 10/21/2023 Generated for Reubeni ng/Fajohng/eTransmitting on: 09/23/2024 11:48 AM EST
--- OUTSIDE RECORDS SUMMARY | 2024-11-29 05:50 | XMS_ITS ---
Author Organization [facility] Address [address] [place] [address] Care Team Providers Care Copy Director Name Role Phone Jaxon Fuentes MD Primary Care Provider Abdulaziz Laura Unavailable [phone] REASON FOR VISIT gerd,erosive esophagitis,screening. hx polyps Encounters Encounter Location Date Provider Diagnosis [facility] [place] [address] [place], [place] [phone] 11/29/2024 Abdulaziz Flores Colon cancer scree marely [...] * JACE SOTODOB: [birth year] (75 yo M)Acc No.[id number]:11/29/2024 EGD and COL/MAC Patient: Dee CENTENO ABDZULEMA Provider: Carlin Flores MD :1950 A ge:74 Y S ex:Male Date:11/29/2024 Address:[address] [place] [address] [address] [facility] Pcp:Jaxon Fuentes MD Subjective: * Chief Complaints: * 1 . Gerd,erosive esophagitis,screening. hx polyps. * Medical History: Objective: * Vitals: Assessment: * Assessment: 1. C olon cancer screening - Z12.11 (Primary) 2 . D iverticulosis of large intestine without perforation or abscess without bleeding - K57.30 3 . O ther hemorrhoids - K64.8 4 . G lu-esophageal reflux disease without esophagitis - K21.9 5 . H iatal hernia - K44.9 Plan: * Treatment: * Procedure Codes: 4 5378 DIAGNOSTIC COLONOSCOPY, Modifiers: 53 , 0529F INTRVL 3+YRS PTS CLNSCP DOCD, 0528F RCMND FLW-UP 10 YRS DOCD, 13922 UPPR GI ENDOSCOPY, DIAGNOSIS * * The named appointment provid er may or may not be the originator of this progress note, and it is not deemed complete until electronically signed by the appointment provider. Sign off status: Pending * Provider: Carlin Flores MD Date: 0 11/29/2024 Generated for Doris reynaga/Jaylyn/Adrianaitting on: 1 09/23/2024 11:48 AM EST
--- OUTSIDE RECORDS SUMMARY | 2025-03-03 07:50 | XMS_ITS ---
Author Organization [facility] Address [address] [place] [address] Care Team Providers Care Store Clerk Cashier Name Role Phone Jaxon Fuentes MD Primary Care Provider Abdulaziz [place] Unavailable [phone] REASON FOR VISIT screening,hx polyps Encounters Encounter Location Date Provider Diagnosis [facility] [place] [address] [place], [place] [phone] 03/03/2025 Abdulaziz Flores Colon cancer scree marely [...] * BRITTANY JACEDOB: [birth year] (75 yo M)Acc No.[id number]:03/03/2025 COLON WITH MAC Patient: JACE RODRÍGUEZ Provider: Carlin Flores MD :1950 A ge:75 Y S ex:Male Date:03/03/2025 Address:[address] [place] [address] [address] , [place], [place] Pcp:Jaxon Fuentes MD Subjective: * Chief Complaints: * 1 . Screening,hx polyps. * Medical History: Objective: * Vitals: Assessment: * Assessment: 1. C olon cancer screening - Z12.11 (Primary) 2 . P ersonal history of adenomatous and serrated colon polyps - Z86.0101 3 . D iverticulosis of large intestine without perforation or abscess without bleeding - K57.30 4 . O ther hemorrhoids - K64.8 Plan: * Treatment: * Procedure Codes: G 0105 COLOREC CANCR SCR; COLNSCPY HI RISK, 0529F INTRVL 3+YRS PTS CLNSCP DOCD, Modifiers: 1P , 0528F RCMND FLW-UP 10 YRS DOCD, Modifiers: 1P * * The named appointment provid er may or may not be the originator of this progress note, and it is not deemed complete until electronically signed by the appointment provider. Sign off status: Pending * Provider: Carlin Flores MD Date: 0 03/03/2025 Generated for Doris reynaga/Jaylyn/eTransmitting on: 1 09/23/2024 11:48 AM EST
--- NOTE | 2025-07-24 10:04 | A.OFFVIS_ITS ---
Vital Signs 07/24/25 10:05 Height 5 ft 6 in Weight 190 lb BMI 30.7 Intake Visit Reasons: follow up [facility] 06/24/25 Intake Note: Pt follow up [facility] 06/24/25, pt states bilateral foot, pain, tingling and cold to hot sensation. Has itching and burning as well. Data Transcriber Required: No Accompanied by: Self / Same As Patient Allergies No Known Allergies Allergy (Verified 07/24/25 10:09) HPI HPI follow up [facility] 06/24/25: Details: The patient is a 75-year-old male presenting with severe pain and cold sensation in the feet. The pain is described as severe and persistent, with the feet feeling cold even when wearing socks. The patient reports that the symptoms are not associated with walking, and there is no pain upon palpation. The patient also reports swelling in the legs and ankles, which has been persistent. He has been wearing boots and socks for extended periods due to his work schedule, which may contribute to the swelling. Additionally, the patient experiences intermittent back pain, which was notably severe for three days last month. The back pain is described as very bad, but it is not clear if it is related to the current symptoms in the feet. PFSH Medical History Aortic stenosis Pulmonary emboli DVT (deep venous thrombosis) COVID-19 Diabetes type 2, controlled Chronic GERD Nephrolithiasis BPH loc w urin obs/LUTS Irritable bowel syndrome Surgical History S/P cardiac cath History of colonoscopy History of hand surgery History of kidney stones Family History Father Medical history unknown Mother Medical history unknown Social History Household Members: None Housing: Apartment Housing Other:: I rent a room Are you a primary respiratory care specialist to a significant other at home: No Do you presently have visiting nurse or other home services: No Alcohol intake: never Comment: sitter in room Patient Tobacco Use Status: Never used Tobacco e-Cigarette/Vaping Use: Never Used Second Hand Smoke Exposure: No Advance Directives Date on File: 12/17/20 service: No Current occupational status: employed 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 Current occupational exposures/hazards: No Cognitive needs: No Hearing needs: No Vision needs: No Review of Systems Const All systems reviewed & are unremarkable except as noted in HPI and below Reports no additional complaints ENT Reports Normal hearing present Card Denies chest pain, Denies chest pain at rest, Denies chest pain with activity and Denies pedal edema Resp Denies cough GI Denies abdominal pain Musc Denies abnormal gait, Denies muscle cramps and Denies radiating pain into limb Skin/Breast Denies skin ulcer and Denies wounds Neuro Reports Normal hearing present and Denies abnormal gait Psych Reports no additional complaints Physical Exam Vital Signs: BMI result Body Mass Index 30.7 Const General: cooperative, healthy appearing and comfortable Orientation/consciousness: oriented to person, oriented to place and oriented to time HEENT Head: Yes normal to inspection Neck Neck: Yes normal visual inspection Carotids: no bruits Chest Chest palpation & inspection: normal inspection of the chest Resp Effort & Inspection: normal respiratory effort and able to speak in complete sentences Auscultation: clear to auscultation bilaterally, no crackles, no rales, no rhonchi and no wheezes Cardio Rate: regular rate Rhythm: regular rhythm Heart sounds: S1 normal heart sound present and S2 normal heart sound present Bruits: no carotid bruits Peripheral pulses: Peripheral pulses 2+ throughout GI Inspection: Yes normal to inspection Skin Wounds: no wounds Hair: normal Neuro General: oriented to person, oriented to place and oriented to time Cranial nerves: Yes CN's II-XII intact bilaterally and Yes Normal hearing present Cognition (Neuro): normal cognition Motor exam (neuro): 5/5 motor strength present throughout Extrem Other: venous exam: No significant superficial varicosities or spider telangiectasias, minimal edema General: No clubbing, No cyanosis and No edema Psych Appearance: grossly normal Mental Status: mental status grossly normal Speech and movement: Normal speech and movement present Results Reviewed Results Reviewed: Brief summary of venous insufficiency testing is as follows: right great saphenous vein: negative right small saphenous vein: negative right accessory vein: none present left great saphenous vein: Noted to be focally positive in calf only left small saphenous vein: negative left accessory vein: none present Please note there is no evidence of any venous aneurysms or significant tortuosity Assessment & Plan Assessment & Plan (1) Varicose veins of right lower extremity with inflammation: Code(s): I83.11 - Varicose veins of right lower extremity with inflammation Category: Medical Plan: In short patient is negative for any significant venous insufficiency. In addition he has palpable arterial pulses. I do not believe he has any vascular concern. He has been followed by pain management in Podiatry as well. She continues to complain about his feet better cold and pain in particular. I do believe this is more neurogenic in nature. May require re-evaluation by Neurology. Possible change in medication as well. He will follow up with us on an as-needed basis. Thank you for allowing us to assist in his care. Coding Level of Care Code Est Pt Level 4 (14063) Diagnoses Varicose veins of right lower extremity with inflammation I83.11
[2025-07-24 10:05] VITALS: BMI 30.7
--- OUTSIDE RECORDS SUMMARY | 2025-07-24 11:48 | XMS_ITS | Patient Health Record ---
Author Organization [facility] Janine edward Tray Address [address] [place] [address] Care Team Providers Care Completion Supervisor Name Role Phone Alfredo JEAN, Jaxon Primary Care Provider Unavaila Frantz Trejo Unavailable [phone] Reason For Referral No Information Medications Medication [...] W/U Status Risk Notes Problem Tinea unguium (907282665) Tinea unguium (B35.1) Active confirmed Problem Type II diabetes mellitus without complication (512606924) Type 2 diabetes mellitus without complication (E11.9) Active confirmed Plan Of Treatment Pending Test Test Name Order Date [id number] NAIL, 6 OR MORE 06/19/2020 Insurance Providers Payer Name Payer Address Payer Phone Subscriber Number Group Number Insured Name Patient Relationship to Insured Coverage Start Date Coverage End Date Medicare National [employer] [address] [place] [phone] [id number] Mariposa Davis Self - patient is the insured Medical (General) History Medical History History ICD Code Anxiety Arthritis Back,Hip,and Knee pain Depression type II diabetes Diverticulosis Gall bladder problems Gout Headaches/Migraines Kidney disease Reflux ( GERD) skin ulcer Vascular phlebitis (clots) Surgical History Surgery Date(Month/Year) Hospitalization History Reason Date(Month/Year) [facility]- chest pain 2018
--- OUTSIDE RECORDS SUMMARY | 2025-07-24 11:49 | XMS_ITS | Patient Health Record ---
Author Organization [facility] Address [address] [place] [address] Care Team Providers Care Poultry Grader Name Role Phone Alfredo JEAN, Jaxon Primary Care Provider Abdulaziz Laura Unavailable [phone] Allergies Allergen (clinical drug ingredient) Drug/Non Drug Allergy documented on EMR Reaction Allergy Type Onset Date Status tamsulosin Flomax itchy rash Drug Allergy Activ e Results Component Value Reference Range Notes Glucose, Whole Blood Reviewed date:11/29/2024 04:19:39 PM Interpretation: Performing Lab:[facility], [address] [place] [phone] Notes/Report: Glucose, Whole Blood 147 60-115 mg/dL METER # : [id number] Glucose, Whole Blood Reviewed date:03/03/2025 07:30:18 PM Interpretation: Performing Lab:[facility], [address] [place] [phone] Notes/Report: Glucose, Whole Blood 122 60-115 mg/dL METER # : [id number] Reason For Referral No Information Medications Medication [...] Interpretation Negative Section Notes: Nonsmoker; no alcohol [place]; [place]; [place]; [place] alcohol [place] Problems Problem Type SNOMED Code ICD Code Onset Dates Problem Status W/U Status Risk Notes Problem Screening for malignant neoplasm of colon (546539557) Encounter for screening for malignant neoplasm of colon (Z12.11) Active confirmed Problem History of adenomatous polyp of colon (613102915) History of adenomatous polyp of colon (Z86.010) Active confirmed Problem Abdominal bloating (230333262) Abdominal bloating (R14.0) Active confirmed Problem Gastroduodenitis (913829445) Gastritis, unspecified, without bleeding (K29.70) Active confirmed Problem Cholelithiasis without obstruction (50588157) Calculus of gallbladder without cholecystitis without obstruction (K80.20) Active confirmed Problem Gastroesophageal reflux disease (099024004) Gastroesophageal reflux disease, esophagitis presence not specified (K21.9) Active confirmed Problem Erosive esophagitis (49099898) Erosive esophagitis (K22.10) Active confirmed Problem Generalized abdominal pain (395411663) Abdominal pain, generalized (R10.84) Active confirmed Problem Irritable bowel syndrome characterized by constipation (020928679) Irritable bowel syndrome with constipation (K58.1) Active confirmed Problem Atrophic gastritis (20310598) Chronic gastritis without bleeding, unspecified gastritis type (K29.50) Active confirmed Problem Benign neoplasm of colon (61867404) Adenomatous polyp of colon, unspecified part of colon (D12.6) Active confirmed Problem Abdominal discomfort (82925302) Abdominal discomfort (R10.9) Active confirmed Vital Signs Temperature 96.9 degrees Fahrenheit 08/14/2024 Blood pressure diastolic 00 mm Hg 08/14/2024 Height 66 in 08/14/2024 Blood pressure systolic 000 mm Hg 08/14/2024 Weight 193 lb 4 oz lbs 08/14/2024 BMI 31.19 kg/m2 08/14/2024 Encounters Encounter Location Date Provider Diagnosis [facility] [address] [place] [id number] 11/29/2024 Abdulaziz Flores Colon cancer screeni ng Z12.11 ; Diverticulosis of large intestine without perforation or abscess without bleeding K57.30 ; Other hemorrhoids K64.8 ; Gastro-esophageal reflux disease without esophagitis K21.9 and Hiatal hernia K44.9 [facility] [address] [place] [id number] 03/03/2025 Abdulaziz Flores Colon cancer screeni ng Z12.11 ; Personal history of adenomatous and serrated colon polyps Z86.0101 ; Diverticulosis of large intestine without perforation or abscess without bleeding K57.30 and Other hemorrhoids K64.8 [facility] [address] [place] [phone] 08/14/2024 Abdulaziz Flores Gastroesophageal ref lux disease, esophagitis presence not specified K21.9 ; History of adenomatous polyp of colon Z86.010 ; Encounter for screening for malignant neoplasm of colon Z12.11 ; Calculus of gallbladder without cholecystitis without obstruction K80.20 and Erosive esophagitis K22.10 [facility] [address] [place] [phone] 08/12/2024 Abdulaziz Flores [facility] [address] [place] [phone] 08/13/2024 Abdulaziz Flores [facility] [address] [place] [address] [place] [address] 12/01/2024 Abdulaziz Flores Assessments Encounter Date Diagnosis [...] procedures Need to obtain clearance from your Parliamentary Librarian before the procedures Overall, Jace appears well. [...] OF [facility] [place] [address] [id number] JACE SOTO Self - patient is the insured Medical (General) History Medical History History ICD Code Denies NE,CVA,Lung disease,renal disease NIDDM Hypertension Kidney stones--s/p cystos, ESWL, and ravi nts Colonoscopy in 12/[address] Monahan--s mall tubular adenomas removed [id number] Dr. Chandler and the plan is for [...] for ki dney stones SVT Aortic stenosis--sees [facility] COVID 2020--with hospitalization and com plicated course EGD 2020--UGI bleed during h is COVID infection and hospitalization--had an EGD with the finding of erosive esophagitis and duodenal ulcer DVT with PE during his COVID infection a nd hospitalization in 2020 Surgical History Surgery Date(Month/Year)
== END 2025-07-24 10:33 | disposition home or self-care (01) ==
LOC: HO.HVS 09:56
PROVIDERS: PCP Internal Medicine; Visit Provider Surgery Vascular Surgery
DX: I83.11 Varicose veins of right lower extremity with inflammation (principal)
CPT/HCPCS: 99214

== ENCOUNTER → 2025-07-24 09:55 | Outpatient (BNVA) | payer MEDICARE, SELFPAY | PROVIDERS: PCP Internal Medicine; Visit Provider Surgery Vascular Surgery | DX: M79.672 Pain in left foot (principal); M79.671 Pain in right foot; R60.0 Localized edema; I83.11 Varicose veins of right lower extremity with inflammation; M54.9 Dorsalgia, unspecified | CPT/HCPCS: 99212 ==

== ENCOUNTER 2025-08-05 07:53 | Outpatient (AMB) | payer MEDICARE, SELFPAY ==
[2025-08-05 08:11] VITALS: BP 130/72; PULSE 73; O2SAT 97; BMI 31.6
--- NOTE | 2025-08-05 08:11 | A.OFFPC_ITS ---
Vital Signs 08/05/25 08:11 Height 5 ft 6 in Weight 196 lb BMI 31.6 BP 130/72 Blood Pressure Location Lt brachial Position Sitting Pulse 73 Pulse Source Pulse Oximeter Pulse Oximetry (%) 97 Oxygen Delivery Method Room Air Intake Visit Reasons: 4 mo follow up dm Fly Worker Required: No Accompanied by: Self / Same As Patient Allergies No Known Allergies Allergy (Verified 08/05/25 08:38) Medication List - Last Reconciled 08/05/25 by Ronna Wright MD acetaminophen 650 mg (2 x 325 mg) PO Q6H PRN aluminum hydrox-magnesium carb 254-237.5 mg/5 mL (Gaviscon Extra Strength) 10 mL PO QID atorvastatin (Lipitor) 40 mg PO BEDTIME 90 days blood sugar diagnostic (FreeStyle Lite Strips) TO CHECK BLOOD SUGar once a day blood-glucose meter (FreeStyle Lite Meter kit) TO CHECK BLOOD SUGARS THREE TIMES A DAY clotrimazole-betamethasone 1-0.05 % 1 appl topical BID 2 weeks gabapentin 400 mg PO TID 30 days lancets (FreeStyle Lancets) TO CHECK BLOOD SUGARS THREE TIMES A DAY metformin 1,000 mg PO BID omeprazole 40 mg PO BID pioglitazone 15 mg PO DAILY 90 days tizanidine 4 mg PO Q8H PRN triamcinolone acetonide 0.5% 1 appl topical TID Tobacco use date assessed: 11/22/24 Fall risk assessment: No Falls in past year Last assessed Fall Risk: 08/05/25 Dental Screening Dental Screen Date: 11/22/24 HPI HPI Comments History of Present Illness Details The patient is a 75 year old individual presenting for follow-up of chronic conditions and management of neuropathy. The patient has type 2 diabetes, and the latest HbA1c showed improvement to 7.1% from a previous 7.7%. The patient reports severe pain in the feet associated with coldness, numbness, and tingling, consistent with peripheral neuropathy. The patient is prescribed gabapentin 400 mg three times daily but reports it is ineffective and admits to sometimes taking it only twice a day. A vascular surgeon was seen two weeks ago, and an ultrasound of the legs was normal. He will be referred to Neurology and gabapentin will be changed to pregabalin if insurance approved. Past medical history is significant for aortic stenosis, for which the patient has cardiology follow-up scheduled in September. He has hyperlipidemia and lipid panel was ordered. Other reported issues include the recent onset of severe tooth pain in the upper jaw for the past week, described as feeling decayed, along with headaches. I advised to call a dentist. The patient has a history of onychomycosis, for which a nail was extracted by a rn renal. Additional concerns include itching with a rash between the legs and on the lower back and a history of anemia. A colonoscopy performed this year was normal. [facility] Medical History (Updated 08/05/25 @ 10:18 by Ronna Wright MD) Aortic stenosis Pulmonary emboli DVT (deep venous thrombosis) COVID-19 Diabetes type 2, controlled Chronic GERD Nephrolithiasis BPH loc w urin obs/LUTS Irritable bowel syndrome Surgical History S/P cardiac cath History of colonoscopy History of hand surgery History of kidney stones Family History Father Medical history unknown Mother Medical history unknown Social History Household Members: None Housing: Apartment Housing Other:: I rent a room Are you a primary healthcare sales representative to a significant other at home: No Do you presently have visiting nurse or other home services: No Alcohol intake: never Comment: sitter in room Patient Tobacco Use Status: Never used Tobacco Tobacco use type: Cigarette e-Cigarette/Vaping Use: Never Used Second Hand Smoke Exposure: No Advance Directives Date on File: 12/17/20 service: No Current occupational status: employed 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 Current occupational exposures/hazards: No Cognitive needs: No Hearing needs: No Vision needs: No Questionnaire Thrive Questionnaire Date Thrive assessed: 04/02/25 I am a: Patient What is your living situation today?: I do not have a steady places to live I am temporarily staying with others Within the past 12 months, did the food you bought not last and you didn't have the money to get more?: Often true Within the past 12 months, did you worry whether your food would run out before you got money to buy more?: Sometimes True Do you have trouble paying for medicines?: Yes Do you have trouble getting transportation to medical appointments?: Yes Do you have trouble paying your heating and electricity bill?: Yes Do you have trouble taking care of your child, family member or friend?: Yes Do you have trouble with day-to-day activities such as bathing, preparing meals, shopping, managing finances, etc.?: Yes Are you currently unemployed and looking for a job?: Yes Are you interested in more education?: I choose not to answer this question THRIVE Score: 5 SIXTO-7 AMB Questionnaire SIXTO-7 Date SIXTO - 7 assessed: 11/22/24 Source: Developed by Drs. Abdulaziz Hopson, Mellissa Booth, Rodríguez Singh and colleagues, with an educational mickie from [employer]. Review of Systems Const All systems reviewed & are unremarkable except as noted in HPI and below Card Denies chest pain at rest, Denies chest pain with activity, Denies edema, Denies irregular heart rhythm, Denies claudication, Denies dyspnea, Denies dyspnea on exertion, Denies orthopnea, Denies paroxysmal nocturnal dyspnea and Denies slow heart rate Resp Denies cough, Denies dyspnea and Denies dyspnea on exertion Physical exam (Primary Care) Vital Signs: Last Vital Signs Pulse 73 08/05/25 08:11 BP 130/72 08/05/25 08:11 Pulse Ox 97 08/05/25 08:11 Oxygen Delivery Method Room Air 08/05/25 08:11 BMI result Body Mass Index 31.6 BMI Assessment/Plan discussion: High BMI High, discussed plan: lifestyle, weight reduction, dietary and physical activity Tobacco/Smoking Status: Tobacco use Status Tobacco use date assessed 11/22/24 08/05/25 08:12 Patient Tobacco Use Status Never used Tobacco 08/05/25 08:12 Tobacco use type Cigarette 08/05/25 08:12 e-Cigarette/Vaping Use Never Used 08/05/25 08:12 Thrive Assessment: Date of Thrive Assessment Date Thrive assessed 04/02/25 08/05/25 08:12 Resp Effort & Inspection: normal respiratory effort Auscultation: clear to auscultation bilaterally Cardio Jugular venous distension: no JVD Rate: regular rate Rhythm: regular rhythm Heart sounds: S1 normal heart sound present and S2 normal heart sound present Extrem General: Yes full ROM Results AMB Hemoglobin A1c AMB Hemoglobin A1c 7.1 % Last Edit by Tressa M Maitin, WELDING MACHINE OPERATOR ELECTROSLAG on 08/05/25 08 :29 Results Reviewed Results Reviewed: Laboratory Last Values Hgb A1c (Clinic) 7.1 % (4.0-6.0) H 08/05/25 08:13 Coding Level of Care Code Complex visit Add On G2211 Diagnoses Diabetic neuropathy E11.40 Nonrheumatic aortic valve stenosis I35.0 Cardiac valve disease etiology: nonrheumatic Hyperlipidemia E78.5 Diabetes mellitus E11.9 Lumbar radiculopathy M54.16 Onychomycosis B35.1 Anemia D64.9 Time Spent (min) 25 Assessment & Plan Assessment & Plan (1) Diabetic neuropathy: Code(s): E11.40 - Type 2 diabetes mellitus with diabetic neuropathy, unspecified Category: Medical (2) Aortic stenosis: Comment: follows w/HCS Code(s): I35.0 - Nonrheumatic aortic (valve) stenosis Category: Medical Qualifiers: Cardiac valve disease etiology: nonrheumatic Qualified Code(s): I35.0 - Nonrheumatic aortic (valve) stenosis (3) Hyperlipidemia: Code(s): E78.5 - Hyperlipidemia, unspecified Category: Medical (4) Diabetes mellitus: Code(s): E11.9 - Type 2 diabetes mellitus without complications Category: Medical (5) Lumbar radiculopathy: Code(s): M54.16 - Radiculopathy, lumbar region Category: Medical (6) Onychomycosis: Code(s): B35.1 - Tinea unguium Category: Medical (7) Anemia: Code(s): D64.9 - Anemia, unspecified Category: Medical Plan Plan 1. Type 2 Diabetes Mellitus With Diabetic Neuropathy The patient's HbA1c has improved to 7.1% from 7.7%. For the peripheral neuropathy, which is causing significant foot pain, coldness, and numbness, the current gabapentin regimen is noted to be ineffective and taken inconsistently. Gabapentin will be discontinued, and a prescription for pregabalin twice daily will be sent to the pharmacy. A referral to neurology has been placed. A urine test will be ordered to screen for proteinuria. 2. Hyperlipidemia, Unspecified The patient is taking atorvastatin 40 mg. As the last lipid panel was in March, fasting blood work, including a lipid panel, will be ordered to re-evaluate cholesterol levels. 3. Rash And Other Nonspecific Skin Eruption The patient reports itching and has a visible rash on the lower back and between the legs. A topical cream will be prescribed for the rash. 4. Anemia, Unspecified Given the patient's history of anemia, a CBC will be checked with today's fasting labs to re-evaluate hemoglobin levels. Orders: Orders AMB Hemoglobin A1c Today Z13.9 - Encounter for screening, unspecified Microalbumin, Random (w Creat) Today R80.9 - Proteinuria, unspecified IRON PROFILE Today D64.9 - Anemia, unspecified Lipid Panel Today E78.5 - Hyperlipidemia, unspecified Vitamin D 25-OH Total Today E55.9 - Vitamin D deficiency, unspecified Comprehensive [place]. Panel Fast Today I10 - Essential (primary) hypertension Vitamin B12 and Folate Today E53.8 - Deficiency of other specified B group vitamins Complete Blood Count Auto Diff Today D64.9 - Anemia, unspecified Referrals Neurology Referral E11.40 - Type 2 diabetes mellitus with diabetic neuropathy, unspecified Medications: New pregabalin 75 mg PO BID 60 caps 0RF 30 days E11.40 - Type 2 diabetes mellitus with diabetic neuropathy, unspecified hydrocortisone 1% (Anti-Itch (hydrocortisone)) 1 appl topical BID PRN 28.4 grams 0RF skin irritation 2 weeks
== END 2025-08-05 09:06 | disposition home or self-care (01) ==
LOC: HO.HMCH 07:54
PROVIDERS: PCP Internal Medicine; Visit Provider Internal Medicine
DX: E11.40 Type 2 diabetes mellitus with diabetic neuropathy, unspecified (principal); I35.0 Nonrheumatic aortic (valve) stenosis; E78.5 Hyperlipidemia, unspecified; M54.16 Radiculopathy, lumbar region; B35.1 Tinea unguium; D64.9 Anemia, unspecified; Z13.9 Encounter for screening, unspecified

== ENCOUNTER 2025-08-05 07:53 | Outpatient (REF) | payer MEDICARE, SELFPAY ==
[2025-08-05 09:35] LABS: MANUAL DIFF FLAG NO
[2025-08-05 10:10] LABS: Hematocrit 39.9 % (42.0-52.0); Hemoglobin 12.8 g/dl (14.0-18.0); Imm Gran Abs Auto 0.01 X10*3/uL (0.00-0.03); Imm Gran Pct Auto 0.1 % (0.0-0.4); Lymphocytes Absolute Auto 3.5 X10*3/uL (1.2-4.9); Mean Corpuscular HGB Conc 32.1 g/dl (31.0-36.0); Mean Corpuscular Hemoglobin 29.0 pg (27.0-33.0); Mean Corpuscular Volume 90.5 fL (80.0-98.0); NRBC Abs Auto 0.000 X10*3/uL (0.0-0.012); NRBC Pct Auto 0.0 /100WBC (0.0-0.2); Platelet Count 225 X10*3/uL (160-400); Red Blood Count 4.41 X10*6/uL (4.60-5.80); White Blood Count 8.2 X10*3/uL (4.8-10.8)
[2025-08-05 11:01] LABS: Alanine Aminotransferase 17 U/L (0-40); Albumin Level 4.3 g/dL (3.5-5.0); Alkaline Phosphatase 74 U/L (39-117); Anion Gap 11 (12-20); Aspartate Amino Transferase 21 U/L (5-37); Blood Urea Nitrogen 21 mg/dL (9-16); Calcium 9.6 mg/dL (8.4-10.2); Carbon Dioxide 25 mmol/L (22-29); Chloride 106 mmol/L (96-108); Cholesterol 116 mg/dL (<200); Estimated Glomerular Filt Rate > 60; HDL Cholesterol 45 mg/dL (>40); Iron 65 mcg/dL (45-160); Percent Iron Saturation 19 % (15-50); Potassium 4.4 mmol/L (3.3-5.1); Sodium 138 mmol/L (135-145); Total Iron Binding Capacity 335 mcg/dL (228-428); Total Protein 7.4 g/dL (6.5-8.0); Triglycerides 43 mg/dL (<150); Unsaturated Iron Binding 270 ug/dL
[2025-08-05 11:13] LABS: Folate 13.8 ng/mL (> or = 4.0); Vitamin B12 226 pg/mL (200-900)
== END 2025-08-05 07:54 | disposition home or self-care (01) ==
LOC: HO.LAB 07:53
PROVIDERS: PCP Internal Medicine; Visit Provider Internal Medicine
DX: I10 Essential (primary) hypertension (principal); E11.40 Type 2 diabetes mellitus with diabetic neuropathy, unspecified; E78.5 Hyperlipidemia, unspecified; R51.9 Headache, unspecified; R21 Rash and other nonspecific skin eruption; I35.0 Nonrheumatic aortic (valve) stenosis; M54.16 Radiculopathy, lumbar region; B35.1 Tinea unguium; D64.9 Anemia, unspecified; R80.9 Proteinuria, unspecified; E55.9 Vitamin D deficiency, unspecified; E53.8 Deficiency of other specified B group vitamins; Z79.899 Other long term (current) drug therapy
CPT/HCPCS: 36415; 80053; 80061; 82306; 82607; 82746; 83036; 83540; 85025; 99212

== ENCOUNTER 2025-08-13 09:31 | Outpatient (REF) | payer MEDICARE, SELFPAY ==
--- OUTSIDE RECORDS SUMMARY | 2024-08-20 04:30 | XMS_ITS ---
Author Organization [facility] Address [address] [place] [phone] Care Team Providers Care Client Leader Name Role Phone Alfredo JEAN, Jaxon Primary Care Provider Alonsoa Abdulaziz Vega [phone] REASON FOR VISIT Patient presents today for abd pain, screening colon Encounters Encounter Location Date Provider Diagnosis [facility] [address] [facility] [address] [place] [phone] 08/20/2024 Abdulaziz Flores Plan Of Treatment No Information Progress Notes * JACE SOTODOB: [birth year] (75 yo M)Acc No.[id number]:08/20/2024 Progress Notes Patient: JACE RODRÍGUEZ Provider: Carlin Flores MD :1950 A ge:74 Y S ex:Male Date:08/20/2024 Address:[address] [place], [place] [id number] Pcp:Jaxon Fuentes MD Subjective: * Chief Complaints: * P atient presents today for abd pain, screening colon * The named appointment provid er may or may not be the originator of this progress note, and it is not deemed complete until electronically signed by the appointment provider. Sign off status: Pending * Provider: Carlin Flores MD Date: 10/21/2023 Generated for Doris reynaga/Jaylyn/eTransmitting on: 10/14/2024 12:03 PM EST
--- OUTSIDE RECORDS SUMMARY | 2024-11-29 05:50 | XMS_ITS ---
Author Organization [facility] Address [address] [place] [address] Care Team Providers Care Tube Operator Name Role Phone Jaxon Fuentes MD Primary Care Provider Abdulaziz Laura Unavailable [phone] REASON FOR VISIT gerd,erosive esophagitis,screening. hx polyps Encounters Encounter Location Date Provider [place] [facility] [place] [address] [place], [place] [phone] 11/29/2024 Abdulaziz Flores Colon cancer scree marely Z12.11 ; Diverticulosis of large intestine without perforation or abscess without bleeding K57.30 ; Other hemorrhoids K64.8 ; Gastro-esophageal reflux disease without esophagitis K21.9 and Hiatal hernia K44.9 Assessments Encounter Date Diagnosis (ICD Code) Assessment Notes Treatment Notes Treatment Clinical Notes Section Notes 11/29/2024 Colon cancer screening (ICD-10 - Z12.11) 11/29/2024 Diverticulosis of large intestine without perforation or abscess without bleeding (ICD-10 - K57.30) 11/29/2024 Other hemorrhoids (ICD-10 - K64.8) 11/29/2024 Gastro-esophageal reflux disease without esophagitis (ICD-10 - K21.9) 11/29/2024 Hiatal hernia (ICD-10 - K44.9) Plan Of Treatment No Information Progress Notes * JACE SOTODOB: [birth year] (75 yo M)Acc No.[id number]:11/29/2024 EGD and COL/MAC Patient: Dee CENTENO ABDZULEMA Provider: Carlin Flores MD :1950 A ge:74 Y S ex:Male Date:11/29/2024 Address:[address] [place] [address] [address] [id number] Pcp:Jaxon Fuentes MD Subjective: * Chief Complaints: * G erd,erosive esophagitis,screening. hx polyps Assessment: * Assessment: 1. C olon cancer screening - Z12.11 (Primary) 2 . D iverticulosis of large intestine without perforation or abscess without bleeding - K57.30 3 . O ther hemorrhoids - K64.8 4 . G lu-esophageal reflux disease without esophagitis - K21.9 5 . H iatal hernia - K44.9 Plan: * Procedure Codes: 4 5378 DIAGNOSTIC COLONOSCOPY, Modifiers: 53 0529F INTRVL 3+YRS PTS CLNSCP [id number] RCMND FLW-UP 10 YRS [id number] UPPR GI ENDOSCOPY, DIAGNOSIS Billing Information: * Procedure Codes: 03283 DIAGNOSTIC COLONOSCOPY. Modifiers: 53 0529F INTRVL 3+YRS PTS CLNSCP DOCD. 0528F RCMND FLW-UP 10 YRS DOCD. 26908 UPPR GI ENDOSCOPY, DIAGNOSIS. * The named appointment provid er may or may not be the originator of this progress note, and it is not deemed complete until electronically signed by the appointment provider. Sign off status: Pending * Provider: Carlin Flores MD Date: 0 11/29/2024 Generated for Doris reynaga/Jaylyn/Hayleysmitting on: 1 10/14/2024 12:02 PM EST
--- OUTSIDE RECORDS SUMMARY | 2025-03-03 07:50 | XMS_ITS ---
Author Organization [facility] Address [address] [place] [address] Care Team Providers Care Strategic Planning Director Name Role Phone Jaxon Fuentes MD Primary Care Provider Alonsoa Abdulaziz Vega Unavailable [phone] REASON FOR VISIT screening,hx polyps Encounters Encounter Location Date Provider Diagnosis [facility] Outpatient [address] [place], [place] [phone] 03/03/2025 Abdulaziz Flores Colon cancer scree marely Z12.11 ; Personal history of adenomatous and serrated colon polyps Z86.0101 ; Diverticulosis of large intestine without perforation or abscess without bleeding K57.30 and Other hemorrhoids K64.8 Assessments Encounter Date Diagnosis (ICD Code) Assessment Notes Treatment Notes Treatment Clinical Notes Section Notes 03/03/2025 Colon cancer screening (ICD-10 - Z12.11) 03/03/2025 Personal history of adenomatous and serrated colon polyps (ICD-10 - Z86.0101) 03/03/2025 Diverticulosis of large intestine without perforation or abscess without bleeding (ICD-10 - K57.30) 03/03/2025 Other hemorrhoids (ICD-10 - K64.8) Plan Of Treatment No Information Progress Notes * BRITTANY JACEDOB: [birth year] (75 yo M)Acc No.[id number]:03/03/2025 COLON WITH MAC Patient: JACE RODRÍGUEZ Provider: Carlin Flores MD :1950 A ge:75 Y S ex:Male Date:03/03/2025 Address:[address] [place] [address] [address] , [place], [place] Pcp:Jaxon Fuentes MD Subjective: * Chief Complaints: * S creening,hx polyps Assessment: * Assessment: 1. C olon cancer screening - Z12.11 (Primary) 2 . P ersonal history of adenomatous and serrated colon polyps - Z86.0101 3 . D iverticulosis of large intestine without perforation or abscess without bleeding - K57.30 4 . O ther hemorrhoids - K64.8 Plan: * Procedure Codes: G 0105 COLOREC CANCR SCR; COLNSCPY HI [id number] INTRVL 3+YRS PTS CLNSCP DOCD, Modifiers: 1P 0528F RCMND FLW-UP 10 YRS DOCD, Modifiers: 1P Billing Information: * Procedure Codes: G0105 COLOREC CANCR SCR; COLNSCPY HI RISK. 0529F INTRVL 3+YRS PTS CLNSCP DOCD. Modifiers: 1P 0528F RCMND FLW-UP 10 YRS DOCD. Modifiers: 1P * The named appointment provid er may or may not be the originator of this progress note, and it is not deemed complete until electronically signed by the appointment provider. Sign off status: Pending * Provider: Carlin Flores MD Date: 0 03/03/2025 Generated for Doris reynaga/Jaylyn/Adrianaitting on: 1 10/14/2024 12:03 PM EST
--- OUTSIDE RECORDS SUMMARY | 2025-08-13 12:03 | XMS_ITS | Patient Health Record ---
Author Organization [facility] Janine edward Tray Address [address] [place] [address] Care Team Providers Care Instructional Design Technologist Name Role Phone Alfredo JEAN, Jaxon Primary Care Provider Unavaila Frantz Trejo Unavailable [phone] Reason For Referral No Information Medications Medication [...] W/U Status Risk Notes Problem Tinea unguium (451045658) Tinea unguium (B35.1) Active confirmed Problem Type II diabetes mellitus without complication (402400244) Type 2 diabetes mellitus without complication (E11.9) Active confirmed Plan Of Treatment Pending Test Test Name Order Date [id number] NAIL, 6 OR MORE 06/19/2020 Insurance Providers Payer Name Payer Address Payer Phone Subscriber Number Group Number Insured Name Patient Relationship to Insured Coverage Start Date Coverage End Date Medicare [employer] [address] [place] [phone] [id number] Mariposa Davis Self - patient is the insured Medical (General) History Medical History History ICD Code Anxiety Arthritis Back,Hip,and Knee pain Depression type II diabetes Diverticulosis Gall bladder problems Gout Headaches/Migraines Kidney disease Reflux ( GERD) skin ulcer Vascular phlebitis (clots) Surgical History Surgery Date(Month/Year) Hospitalization History Reason Date(Month/Year) [facility]- chest pain 2018
--- OUTSIDE RECORDS SUMMARY | 2025-08-13 12:03 | XMS_ITS | Patient Health Record ---
Author Organization [facility] Address [address] [place] [address] Care Team Providers Care Robotics Software Engineer Name Role Phone Alfredo JEAN, Jaxon Primary Care Provider Abdulaziz Laura Unavailable [phone] Allergies Allergen (clinical drug ingredient) Drug/Non Drug Allergy documented on EMR Reaction Allergy Type Onset Date Status tamsulosin Flomax itchy rash Drug Allergy Activ e Results Component Value Reference Range Flag Notes Glucose, Whole Blood Reviewed date:11/29/2024 04:19:39 PM Interpretation: Performing Lab:[facility], [address] [place] [phone] Notes/Report: Glucose, Whole Blood 147 60-115 mg/dL H ME TER #: [id number] Glucose, Whole Blood Reviewed date:03/03/2025 07:30:18 PM Interpretation: Performing Lab:[facility], [address] [place] [phone] Notes/Report: Glucose, Whole Blood 122 60-115 mg/dL H ME TER #: [id number] Reason For Referral No Information Medications Medication SIG (Take, Route, Frequency, Duration) Notes Start Date End Date Status Atorvastatin Calcium 20 MG Tablet TAKE ONE TABLET BY MOUTH DAILY AT BEDTIME Oral; Duration: 90 Active Hyoscyamine Sulfate 0.125 MG Tablet use 1 Orally Q 6 hours prn abdominal bloating or discomfort; Duration: 30 days 08/13/2020 Active metFORMIN HCl 500 MG Tablet TK 1 T PO BID WAC Oral; Duration: 30 Active Finasteride 5 MG Tablet TK 1 T PO QD Ora l; Duration: 30 Active Sporanox 100 MG Capsule 1 capsule after a meal Orally Once a day; Duration: 10 day(s) Active Gabapentin 100 MG Capsule TAKE ONE CAPSULE BY MOUTH TWICE A DAY Oral; Duration: 90 Active Omeprazole 40 MG Capsule Delayed Release 1 capsule Orally Once a day 06/16/2019 Active Dicyclomine HCl 10 MG Capsule 1-2 capsules Orally QID prn abdominal bloating and cramps; Duration: 30 Not-Taking/PRN tiZANidine HCl 4 MG Tablet TAKE ONE TABLET BY MOUTH EVERY 8 HOURS NEEDED FOR MUSCLE SPASTICITY. Oral; Duration: 40 Active FreeStyle Lite Test - Strip USE TO CHECK BLOOD SUGARS THREE TIMES DAILY In Vitro; Duration: 33 Active Immunizations Vaccine Route Administration Date Status Comme nts Influenza Unknown 06/26/2018 Administered Influenza Unknown 08/11/2019 Administered Influenza Unknown 04/11/2020 Administered Influenza Unknown 07/23/2024 Administered Social History Tobacco Use: Social History Observation Description Date Details (start date - stop date) Never Smoker NA - NA Social History Drugs/Alcohol: Social Info Question Answer Notes Alcohol Screen Did you have a drink containing alcohol in the past year? 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 Section Notes: Nonsmoker; no alcohol [place]; [place]; [place]; [place] Problems Problem Type SNOMED Code ICD Code Onset Dates Problem Status W/U Status Risk Notes Problem Screening for malignant neoplasm of colon (451031490) Encounter for screening for malignant neoplasm of colon (Z12.11) Active confirmed Problem History of adenomatous polyp of colon (162532605) History of adenomatous polyp of colon (Z86.010) Active confirmed Problem Abdominal bloating (321384543) Abdominal bloating (R14.0) Active confirmed Problem Gastroduodenitis (305697030) Gastritis, unspecified, without bleeding (K29.70) Active confirmed Problem Cholelithiasis without obstruction (89910372) Calculus of gallbladder without cholecystitis without obstruction (K80.20) Active confirmed Problem Gastroesophageal reflux disease (702829693) Gastroesophageal reflux disease, esophagitis presence not specified (K21.9) Active confirmed Problem Erosive esophagitis (12285650) Erosive esophagitis (K22.10) Active confirmed Problem Generalized abdominal pain (820856103) Abdominal pain, generalized (R10.84) Active confirmed Problem Irritable bowel syndrome characterized by constipation (468074075) Irritable bowel syndrome with constipation (K58.1) Active confirmed Problem Atrophic gastritis (15670537) Chronic gastritis without bleeding, unspecified gastritis type (K29.50) Active confirmed Problem Benign neoplasm of colon (51290474) Adenomatous polyp of colon, unspecified part of colon (D12.6) Active confirmed Problem Abdominal discomfort (77197539) Abdominal discomfort (R10.9) Active confirmed Vital Signs Temperature 96.9 degrees Fahrenheit 08/14/2024 Blood pressure diastolic 00 mm Hg 08/14/2024 Height 66 in 08/14/2024 Blood pressure systolic 000 mm Hg 08/14/2024 Weight 193 lb 4 oz lbs 08/14/2024 BMI 31.19 kg/m2 08/14/2024 Encounters Encounter Location Date Provider Diagnosis [facility] Out[facility] [address] [place] [id number] 11/29/2024 Abdulaziz Flores Colon cancer screeni ng Z12.11 ; Diverticulosis of large intestine without perforation or abscess without bleeding K57.30 ; Other hemorrhoids K64.8 ; Gastro-esophageal reflux disease without esophagitis K21.9 [address] [facility] Out[facility] [address] [place] [phone] 03/03/2025 Abdulaziz Flores Colon cancer screeni ng Z12.11 ; Personal history of adenomatous and serrated colon polyps Z86.0101 ; Diverticulosis of large intestine without perforation or abscess without bleeding K57.30 and Other hemorrhoids K64.8 [facility] [address] [place] [phone] 08/14/2024 Abdulaziz Flores Gastroesophageal ref lux disease, esophagitis presence not specified K21.9 ; History of adenomatous polyp of colon Z86.010 ; Encounter for screening for malignant neoplasm of colon Z12.11 ; Calculus of gallbladder without cholecystitis without obstruction K80.20 and Erosive esophagitis K22.10 [facility] [address] [place] [phone] 08/13/2024 Abdulaziz Sandra [facility] [address] [place] [address] 12/01/2024 Abdulaziz Flores Assessments Encounter Date Diagnosis [...] procedures Need to obtain clearance from your Marine Firefighter before the procedures Overall, Jace appears well. [...] to keep you advised of his progress. 03/03/2025 Diverticulosis of large intestine without perforation [...] progress. 11/29/2024 Hiatal hernia (ICD-10 - K44.9) Plan Of Treatment Pending Test Test Name [...] Date Coverage End Date MEDICARE OF [employer] [address] [place] [address] [id number] JACE SOTO Self - patient is the insured Medical (General) History Medical History History ICD Code Denies CA,CVA,Lung disease,renal disease NIDDM Hypertension Kidney stones--s/p cystos, ESWL, and ravi nts Colonoscopy in 12/[address] Monahan--s mall tubular adenomas removed [id number] Dr. Chandler and the plan is for [...] ki dney stones SVT Aortic stenosis--sees [facility] Cardiology COVID 2020--with hospitalization and com plicated course EGD 2020--UGI bleed during h is COVID infection and hospitalization--had an EGD with the finding of erosive esophagitis and duodenal ulcer DVT with PE during his COVID infection a nd hospitalization in 2020 Surgical History Surgery Date(Month/Year)
[2025-08-14 10:59] LABS: Microalbum/Creatinine Ratio Ur 34.7 ug/mg cr (<30)
[2025-08-16 23:14] LABS: Arsenic, Blood <3 mcg/L (<23); Lead, Blood <1.0 mcg/dL (<3.5); Mercury, Blood <4 mcg/L (<=10)
[2025-08-18 20:58] LABS: Prot Elec - Albumin 3.9 g/dL (3.8-4.8); Prot Elec - Alpha1 0.3 g/dL (0.2-0.3); Prot Elec - Alpha2 0.8 g/dL (0.5-0.9); Prot Elec - Beta 1 0.5 g/dL (0.4-0.6); Prot Elec - Beta 2 0.4 g/dL (0.2-0.5); Prot Elec - Gamma 1.1 g/dL (0.8-1.7); Prot Elec - Total Protein 7.0 g/dL (6.1-8.1)
[2025-08-19 13:58] LABS: PEU-Protein Creat Ratio Rand 0.132 (0.025-0.148); PEU-Rand. Prot/Creat Ratio 132 mg/g creat (25-148); PEU-Random Ur. Gamma Globulin 0 %; PEU-Random Urine A1 Globulin 0 %; PEU-Random Urine A2 Globulin 0 %; PEU-Random Urine Albumin 100 %; PEU-Random Urine Beta Globulin 0 %; PEU-Random Urine Creatinine 151 mg/dL (20-320); PEU-Random Urine Protein 20 mg/dL (5-25)
== END 2025-08-13 09:32 | disposition home or self-care (01) ==
LOC: HO.LAB 09:31
PROVIDERS: PCP Internal Medicine; Visit Provider Nurse Practitioner
DX: E11.40 Type 2 diabetes mellitus with diabetic neuropathy, unspecified (principal); R20.2 Paresthesia of skin; R80.9 Proteinuria, unspecified
CPT/HCPCS: 36415; 82043; 82175; 82570; 82784; 83655; 83825; 83921; 84156; 84165; 84166; 86334

== ENCOUNTER 2025-08-13 09:31 | Outpatient (AMB) | payer MEDICARE, SELFPAY ==
--- NOTE | 2025-08-13 09:35 | A.OFFVIS_ITS ---
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 He is here today for evaluation neuropathy described as a cold sensation, numbness, and tingling to his lower extremities. Primary care had prescribed him gabapentin 400 mg 3 times a day though he had reported this to be ineffective and he is now taking pregabalin 75 mg twice daily. The patient tells me today that since getting covid he has had difficulty with his blood glucose levels. He subsequently developed pain to his lower extremities including cold sensations in both of his feet as well as tingling and pins/needles sensation. Symptoms are worse in the distal ends and his discomfort extend up to his mid forbes area. He also has been getting swelling to his bilateral lower extremity/ankle areas but does note that he is on his feet for long periods of time at work when he seems to have the majority of his pain. Does note that he has been somewhat imbalanced but has not had any falls. He does not use a cane or other assistive device. Background information: ETOH- None Substance use- None Tobacco use- None Occupational exposures- None Past medication trials: Gabapentin-ineffective Pregabalin- 75 mg twice daily-no significant benefit with this dose Prior workup: Labs: A1c (7.1), vitamin B12 (226) [facility] Medical History Aortic stenosis Pulmonary emboli DVT (deep venous thrombosis) COVID-19 Diabetes type 2, controlled Chronic GERD Nephrolithiasis BPH loc w urin obs/LUTS Irritable bowel syndrome Surgical History S/P cardiac cath History of colonoscopy History of hand surgery History of kidney stones Family History Father Medical history unknown Mother Medical history unknown Social History Household Members: None Housing: Apartment Housing Other:: I rent a room Are you a primary healthcare management to a significant other at home: No Do you presently have visiting nurse or other home services: No Alcohol intake: never Comment: sitter in room Patient Tobacco Use Status: Never used Tobacco Tobacco use type: Cigarette e-Cigarette/Vaping Use: Never Used Second Hand Smoke Exposure: No Advance Directives Date on File: 12/17/20 service: No Current occupational status: employed 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 Current occupational exposures/hazards: No Cognitive needs: No Hearing needs: No Vision needs: No Review of Systems Const All systems reviewed & are unremarkable except as noted in HPI and below Physical Exam Vital Signs: Last Vital Signs Pulse 61 08/13/25 09:53 Resp 16 08/13/25 09:53 BP 152/82 H 08/13/25 09:53 Pulse Ox 96 08/13/25 09:53 Oxygen Delivery Method Room Air 08/13/25 09:53 BMI result Body Mass Index 32.6 Const General: cooperative, healthy appearing, comfortable and no acute distress Nutritional Appearance: well nourished Orientation/consciousness: patient oriented x3 Limitations: no limitations HEENT Head: Yes normal to inspection and Yes normocephalic Eyes General: appearance normal, both eyes and all related structures Visual Baldwin: normal visual baldwin by confrontation Alignment and Position: alignment normal Periorbital: periorbital findings normal Eyelids: Yes eyelids normal Conjunctivae: conjunctivae normal Sclerae: sclerae normal Neuro General: patient oriented x3 Cranial nerves: Yes CN's II-XII intact bilaterally Cognition (Neuro): normal cognition Gait exam (Neuro): Antalgic gait present Motor exam (neuro): 5/5 motor strength present throughout and no tremor noted Sensory Exam: sensory level loss detected, Abnormal lower extremity sensory exam (Loss of vibratory sensation extending up to about 2 in above ankle) bilateral and other (Great toe proprioception remains in tact) Deep tendon reflexes (DTR's): Right triceps reflex intensity grade: 2+, Left triceps reflex intensity grade: 2+, Rt Biceps (C5, C6): 2+, Left biceps reflex intensity grade: 2+, Right brachioradialis reflex intensity grade: 2+, Left brachioradialis reflex intensity grade: 2+, Left patellar reflex intensity grade: 2+, Right ankle reflex intensity grade: 0 and Left ankle reflex intensity grade: 0 Coordination: [id number] test normal Romberg Test: Negative Pupils: Normal pupillary reactivity/response: bilateral Psych Appearance: grossly normal Mental Status: mental status grossly normal Speech and movement: Normal speech and movement present and Clear speech present Affect: normal affect Attitude: cooperative Thought process: Normal thought process present Thought content: Normal thought content present Insight: Good insight present (Psych) Judgement: Good judgement present (Psych) Assessment & Plan Assessment & Plan (1) Leg paresthesia: Code(s): R20.2 - Paresthesia of skin Category: Medical (2) Diabetic neuropathy: Code(s): E11.40 - Type 2 diabetes mellitus with diabetic neuropathy, unspecified Category: Medical Plan Mariposa is a 75-year-old male patient with a past medical history of hyperlipidemia, anemia, lumbar radiculopathy, and type 2 diabetes with latest A1c of 7.1 (improving from 7.7). He is here today for evaluation neuropathy described as a cold sensation, numbness, and tingling to his lower extremities. His exam today is characteristic of a peripheral polyneuropathy with likely relationship to his blood glucose. I will however rule out other potential causes that can be detected in serum evaluation. His B12 was on the lower side of normal and I will add a methylmalonic acid to evaluate for possibility of B12 deficiency. As exam was significant for loss of vibratory sensation to the distal lower extremities extending up to about 2 in above the ankle on both sides. His great toe proprioception remain intact. He did have loss of Achilles tendon reflexes bilaterally but reflexes are preserved at the patella bilaterally. He did have 1+ edema to the bilateral ankle areas. It seems reasonable to consider that the edema may be playing a role. He has been worked up for the edema and has had ultrasounds which were negative. I think would be reasonable to consider a light compression stocking while he is on his feet. For symptomatic management, I will add duloxetine with goal dose of 60 mg daily in addition to his existing pregabalin 75 mg twice daily. In the future, we could consider increasing the pregabalin or stopping the pregabalin depending on how he responds to the duloxetine. -Continue pregabalin 75mg twice daily -Start a trial of duloxetine 30mg daily for 2 weeks and then increase to 60mg -Walking cane (sent to [facility] [place]) -Compression stockings (sent to [facility] [place]) -Labs:Immunofixation, SPEP, UPEP, heavy metal screen, and methylmalonic acid Orders: Orders Immunofixation Pnl, Serum Today E11.40 - Type 2 diabetes mellitus with diabetic neuropathy, unspecified, R20.2 - Paresthesia of skin Heavy Metals Screen Blood Today E11.40 - Type 2 diabetes mellitus with diabetic neuropathy, unspecified, R20.2 - Paresthesia of skin Protein Electrophoresis, Serum Today E11.40 - Type 2 diabetes mellitus with diabetic neuropathy, unspecified, R20.2 - Paresthesia of skin Protein Electrophoresis,Ran Ur Today E11.40 - Type 2 diabetes mellitus with diabetic neuropathy, unspecified, R20.2 - Paresthesia of skin Methylmalonic Acid Today E11.40 - Type 2 diabetes mellitus with diabetic neuropathy, unspecified, R20.2 - Paresthesia of skin Medications: New miscellaneous medical supply Standard walking cane 1 ea miscellaneous ONCE 1 ea 0RF duloxetine Take 1 capsule by mouth daily for 2 weeks and then increase to 2 capsules by mouth daily 60 mg (2 x 30 mg) PO DAILY 60 caps 5RF 30 days miscellaneous medical supply Compression stockings 15-20mmhg knee high 1 ea miscellaneous ONCE 1 ea 0RF Coding Level of Care Code New Pt Level 4 (15905) Diagnoses Leg paresthesia R20.2 Diabetic neuropathy E11.40
[2025-08-13 09:53] VITALS: BP 152/82; PULSE 61; RESP 16; O2SAT 96; BMI 32.6
== END 2025-08-13 10:12 | disposition home or self-care (01) ==
LOC: HO.HSM 09:32
PROVIDERS: PCP Internal Medicine; Visit Provider Nurse Practitioner
DX: R20.2 Paresthesia of skin (principal); E11.40 Type 2 diabetes mellitus with diabetic neuropathy, unspecified
CPT/HCPCS: 99204